=== PATIENT | female | born 1945 | race Caucasian/White ===

== ENCOUNTER 2023-04-16 07:44 | Emergency (ER) | payer MEDICARE, SELFPAY ==
[2023-04-16] VITALS (12 sets, daily range): BP systolic 81–101; BP diastolic 42–61; PULSE 58–72; RESP 12–22; TEMP 36.4; O2SAT 96–98; BMI 25.8
[2023-04-16] MEDS: ONDANSETRON PF 4 MG/2 ML VIAL IV (08:08)
[2023-04-16] MEDS: 0.9 % SODIUM CHLORIDE 1,000 ML 1000 ML IV ×2 (08:08→09:38)
--- NOTE | 2023-04-16 08:12 | ECG_ITS ---
[facility] Test Date: 2023-04-16 Pat Name: SHERRY SEXTON Department: Room: - Gender: Female [employer]: : 1945 Requested By: Order Number: [id number] Reading MD: RUBINA ORTEZ Measurements Intervals [place] Rate: 58 P: 51 W[place]: 168 QRS: 53 QRSD: 78 T: 246 QT: 472 QTc: 469 Interpretive Statements 1100 Sinus rhythm [address] depression 4664 Twave abnormality, possible inferolateral ischemia 9150 abnormal ECG No previous ECG available for comparison Electronically Signed On 04-18-2023 19:29:10 EST by RUBINA ORTEZ
--- NOTE | 2023-04-16 08:12 | XR_ITS ---
The [address] [address] Patient Name: SHERRY SEXTON MRN: [id number] date: 1945 Sex: F Assigned Patient Location: ER Current Patient Location: ER Accession/Order Number: [id number] Exam Date: 04/16/2023 08:40 Report Date: 04/16/2023 09:19 At the request of: STEVIE VIRGEN Procedure: XR acute abdomen series EXAM: XR acute abdomen series HISTORY: weakness, nausea COMPARISON: None. TECHNIQUE: Frontal view of the chest and supine and upright views of the abdomen FINDINGS: TUBES/LINES: None CHEST: [Adequate inflation. No focal opacity in the setting of likely prominent mediastinal fat pad. No pneumothorax. No pleural effusion. Unremarkable cardiomediastinal contours. ABDOMEN: No dilated loops of bowel. A couple transverse colonic air-fluid levels with gas and stool extending to the rectum. Moderate stool burden. No pneumoperitoneum. Cholecystectomy. BONES & SOFT TISSUE: Unremarkable. XR/XR acute abdomen series IMPRESSION: 1. Overall nonobstructive bowel gas pattern. 2. No acute pulmonary findings. Electronically authenticated by: ANNABEL IVERSON Date: 04/16/2023 09:19
--- NOTE | 2023-04-16 08:17 | ED_ITS ---
HPI - General Adult General Chief complaint: Weakness Stated complaint: GENERAL WEAKNESS Time Seen by Provider: 04/16/23 07:53 Source: patient Mode of arrival: walk-in History of Present Illness HPI narrative: 77yr old female new to this facility presents with non-focal weakness, nausea and acid reflux-type symptoms - discomfort from the upper abdomen through the chest into the throat with a terrible taste in my mouth - that started this morning. She was evaluated at [facility] in [place], [place], on 04/12/23 and found to have a UTI and was prescribed bactrim, which she has been taking twice daily. We received a copy of her records from [facility] and she had CT scan showing chronic bilateral UPL stenosis, which has been present on multiple prior studies, according to the chart, sigmoid diverticulosis without diverticulitis, previously seen granulomatous disease, normal liver and bladder, non-obstructive bowel gas pattern and nothing else to attribute to her abdominal pain. Her blood work was essentially unremarkable with normal WBC, Hb 10.5, left shift and normal electrolytes, renal function and LFTs. Related Data Home Medications Medication Instructions Recorded Confirmed alprazolam 0.5 mg tablet 0.5 mg PO BID PRN anxiety 04/16/23 04/16/23 pantoprazole 40 mg tablet,delayed 40 mg PO Q12H 04/16/23 04/16/23 release rosuvastatin 40 mg tablet 40 mg PO DAILY 04/16/23 04/16/23 sertraline 100 mg tablet 100 mg PO Q24H 04/16/23 04/16/23 sulfamethoxazole 400 2 tab PO Q12H 04/16/23 04/16/23 mg-trimethoprim 80 mg tablet venlafaxine 37.5 mg 37.5 mg PO DAILY 04/16/23 04/16/23 capsule,extended release 24 hr Previous Rx's Medication Instructions Recorded nitrofurantoin 100 mg PO BID 5 days #10 caps 04/16/23 monohydrate/macrocrystals 100 mg capsule (Macrobid) sucralfate 1 gram tablet (Carafate) 1 g PO Q6H 4 weeks #112 tabs 04/16/23 Allergies Allergy/AdvReac Type Severity Reaction Status Date / Time bee venom protein (honey bee) Allergy Swelling Verified 04/16/23 08:03 of Lip/Tongue/Throat moxifloxacin [From Avelox] Allergy Swelling Verified 04/16/23 08:03 of Lip/Tongue/Throat acetaminophen [From Percocet] AdvReac Headache Verified 04/16/23 08:02 albuterol AdvReac Headache Verified 04/16/23 08:02 calcium AdvReac Vomiting Verified 04/16/23 08:02 doxycycline AdvReac Verified 04/16/23 08:02 fluconazole [From Diflucan] AdvReac Headache Verified 04/16/23 08:02 hydrocodone [From Vicodin] AdvReac Vomiting Verified 04/16/23 08:03 Iodinated Contrast Media AdvReac burining Verified 04/16/23 08:02 skin oxycodone [From Percocet] AdvReac Headache Verified 04/16/23 08:02 Penicillins AdvReac Hives Verified 04/16/23 08:02 Exam Narrative Exam Narrative: Nurses notes and vital signs reviewed and patient is not hypoxic. afebrile General: Well-appearing and in no apparent distress. Skin: Warm, dry, no pallor noted. No rash. Head: Normocephalic, atraumatic. Neck: Supple, non-tender. no cervical lymphadenopathy Eye: Pupils are equal, round and EOMI. No scleral icterus. Ears, Nose, Mouth, and Throat: Oral mucosa is slightly dry Cardiovascular: Regular Rate and Rhythm without murmur, gallop or rub. Respiratory: No accessory muscle use or respiratory distress. Lungs are clear to auscultation, no wheezing, rales or rhonchi Back: No CVA tenderness Musculoskeletal: normal ROM, no calf or popliteal tenderness, no lower extremity edema/swelling GI: Abdomen is soft, non-distended. Normal bowel sounds. No masses appreciated. No tenderness to palpation. No rebound, guarding, or rigidity noted. Neurological: A&O x4. No cranial nerve dysfunction observed. No truncal ataxia. Moves all extremities. Sensation intact. Psychiatric: Cooperative and interactive. Normal mood and affect. Constitutional Vital Signs, click to edit/add: Last Vital Signs Temp 97.6 F 04/16/23 07:49 Pulse 68 04/16/23 09:27 Resp 22 04/16/23 09:27 BP 87/42 L 04/16/23 09:27 Pulse Ox 96 04/16/23 09:22 O2 Del Method Room Air 04/16/23 07:49 Course Vital Signs Vital signs: Vital Signs Temperature 97.6 F 04/16/23 07:49 Pulse Rate 72 04/16/23 07:49 Respiratory Rate 18 04/16/23 07:49 Blood Pressure 99/61 04/16/23 07:49 Pulse Oximetry 98 04/16/23 07:49 Oxygen Delivery Method Room Air 04/16/23 07:49 Temperature 97.6 F 04/16/23 07:49 Pulse Rate 68 04/16/23 09:27 Respiratory Rate 22 04/16/23 09:27 Blood Pressure 87/42 L 04/16/23 09:27 Pulse Oximetry 96 04/16/23 09:22 Oxygen Delivery Method Room Air 04/16/23 07:49 Medical Decision Making MDM Narrative Medical decision making narrative: Patient was placed on director of cardiac rehabilitation and EKG obtained. Blood drawn and sent for evaluation. chest x-ray obtained. Urine ordered to be sent for testing as well. Patient given normal saline IV fluid, IV Zofran while we awaited test results We received a copy of the patient's recent emergency department evaluation. My summarized details are noted in the HPI. Blood test results today are almost identical to those obtained at OSH. Urine still shows sign of acute UTI but improved from result at OSH - I do not have a blood culture result from OSH. Troponin negative despite EKG showing TWI. Abd series xrays are without worrisome acute pulmonary or intra-abdominal findings Orthostatics reveal a BP drop going from sitting to standing - so she was ordered to receive a second liter of NS IVF. She was also ordered to receive GI cocktail for her reflux symptoms. Patient informed of results and we discussed diagnoses and plan for treatment. She was discharged home with prescriptions for carafate and macrobid x5days. She was instructed to also complete her course of bactrim previously prescribed. Medical Records Medical records reviewed: Yes I reviewed the patient's medical records Medical records narrative: see the HPI Lab Data Lab results reviewed: Yes I reviewed the patient's lab results Labs: Lab Results 04/16/23 04/16/23 Range/Units 08:05 08:14 WBC 5.0 (4.0-11.0) 10^3/uL RBC 3.82 L (4.20-5.40) 10^6/uL Hgb 10.8 L (12.0-16.0) g/dL Hct 33.0 L (36.0-48.0) % MCV 86.4 (81.0-99.0) fL MCH 28.3 (26.7-34.0) pg MCHC 32.7 (29.9-35.2) g/dL RDW 14.2 (11.0-15.0) % Plt Count 184 (150-450) 10^3/uL MPV 9.7 (9.5-13.5) fL Neut % (Auto) 71.4 (43.0-75.0) % Lymph % (Auto) 19.4 L (20.5-60.0) % [place] % (Auto) 6.2 (1.7-12.0) % Eos % (Auto) 2.2 (0.9-7.0) % Baso % (Auto) 0.4 (0.2-2.0) % Neut # (Auto) 3.6 (1.4-6.5) 10^3/uL Lymph # (Auto) 1.0 L (1.2-3.8) 10^3/uL [place] # (Auto) 0.3 (0.3-0.8) 10^3/uL Eos # (Auto) 0.1 (0.0-0.7) 10^3/uL Baso # (Auto) 0.0 (0.0-0.1) 10^3/uL Abs Immat Gran (auto) 0.02 (0.00-0.03) 10^3/uL Imm/Tot Granulo (auto) 0.4 (0.0-0.5) % Sodium 137 (136-145) mmol/L Potassium 3.8 (3.5-5.1) mmol/L Chloride 100 (98-107) mmol/L Carbon Dioxide 23.6 (21.0-32.0) mmol/L Anion Gap 17.2 BUN 10.0 (7.0-18.0) mg/dL Creatinine 1.14 H (0.55-1.02) mg/dL Est GFR ( Amer) 56 L (>=60) Est GFR (Non-Af Amer) 46 L (>=60) BUN/Creatinine Ratio 8.8 Glucose 131 H (74-106) mg/dL Calcium 8.7 (8.5-10.1) mg/dL Total Bilirubin 0.5 (0.2-1.0) mg/dL AST 16 (15-37) U/L ALT 19 (14-59) U/L Alkaline Phosphatase 77 (46-116) U/L Troponin I High Sens 6.1 (4.0-51.3) pg/mL Total Protein 7.0 (6.4-8.2) g/dL Albumin 3.7 (3.4-5.0) g/dL Globulin 3.3 g/dL Albumin/Globulin Ratio 1.1 Lipase 37.0 (16.0-77.0) U/L Urine Color Lt. yellow (YELLOW) Urine Clarity Clear (CLEAR) Urine pH 7.0 (5.0-9.0) Ur Specific [place]later 1.020 (1.005-1.025) Urine Protein 30 A (NEG/TRACE) mg/dL Urine Glucose (UA) Negative (NEGATIVE) mg/dL Urine Ketones Negative (NEGATIVE) mg/dL Urine Occult Blood Negative (NEGATIVE) Urine Nitrite Negative (NEGATIVE) Urine Bilirubin Negative (NEGATIVE) Urine Urobilinogen 2.0 A (0.2-1.0) EU/dL Ur Leukocyte Esterase Trace A (NEGATIVE) Urine RBC 0-2 (0-2) #/HPF Urine WBC 0-2 A (NONE SEEN) #/HPF Ur Squamous Epith Cells Rare (NONE/RARE) #/LPF Urine Crystals Seen A (None Seen) #/HPF Amorphous Sediment Few Urine Bacteria Small A (NONE SEEN) #/HPF Urine Casts None seen (NONE SEEN) #/LPF Urine Mucus None seen (NONE SEEN) Ur Culture Indicated? Yes SARS-CoV-2 (PCR) Negative (NEGATIVE) Imaging Data xr abd & chest: Radiologist's impression: Patient Name: SHERRY SEXTON MRN: [id number] date: 1945 Sex: F Assigned Patient Location: ER Current Patient Location: ER Accession/Order Number: [id number] Exam Date: 04/16/2023 08:40 Report Date: 04/16/2023 09:19 At the request of: STEVIE VIRGEN Procedure: XR acute abdomen series EXAM: XR acute abdomen series HISTORY: weakness, nausea COMPARISON: None. TECHNIQUE: Frontal view of the chest and supine and upright views of the abdomen FINDINGS: TUBES/LINES: None CHEST: [Adequate inflation. No focal opacity in the setting of likely prominent mediastinal fat pad. No pneumothorax. No pleural effusion. Unremarkable cardiomediastinal contours. ABDOMEN: No dilated loops of bowel. A couple transverse colonic air-fluid levels with gas and stool extending to the rectum. Moderate stool burden. No pneumoperitoneum. Cholecystectomy. BONES & SOFT TISSUE: Unremarkable. IMPRESSION: 1. Overall nonobstructive bowel gas pattern. 2. No acute pulmonary findings. Electronically authenticated by: ANNABEL IVERSON Date: 04/16/2023 09:19 ECG Data Attestation: I personally reviewed and interpreted this ECG as follows: Interpretation: EKG interpretation: Emergency Department physician interpretation. Normal sinus rhythm at 58bpm. Normal axis, normal intervals. Twave inversion leads I, II, III, aVF, V3-V5. V6 t wave appears biphasic. no ST segment elevation. Mild ST depression in leads III, aVF & V4-V5. Discharge Plan Discharge Chief Complaint: Weakness Clinical Impression: Acute UTI, GERD (gastroesophageal reflux disease), Dehydration Patient Disposition: Home, Self-Care Time of Disposition Decision: 09:38 Prescriptions / Home Meds: New nitrofurantoin monohyd/m-cryst [Macrobid] 100 mg capsule 100 mg PO BID 5 Days Qty: 10 0RF Rx Instructions: must administer with a meal/food sucralfate [Carafate] 1 gram tablet 1 g PO Q6H 28 Days Qty: 112 0RF Rx Instructions: take before meals and at bedtime No Action alprazolam 0.5 mg tablet 0.5 mg PO BID PRN (Reason: anxiety) pantoprazole 40 mg tablet,delayed release (DR/EC) 40 mg PO Q12H rosuvastatin 40 mg tablet 40 mg PO DAILY sertraline 100 mg tablet 100 mg PO Q24H sulfamethoxazole-trimethoprim 400-80 mg tablet 2 tab PO Q12H venlafaxine 37.5 mg capsule,extended release 24hr 37.5 mg PO DAILY Stand Alone Forms: Portal Instructions Referrals: Physician,Non-Staff, MD [Primary Care Provider] - 1 week
[2023-04-16 08:28] LABS: Basophils Percent Auto 0.4 % (0.2-2.0); Eosinophils Absolute Auto 0.1 10^3/uL (0.0-0.7); Eosinophils Percent Auto 2.2 % (0.9-7.0); Hemoglobin 10.8 g/dL (12.0-16.0); Immature Granulocytes Abs Auto 0.02 10^3/uL (0.00-0.03); Immature Granulocytes Pct Auto 0.4 % (0.0-0.5); Lymphocytes Percent Auto 19.4 % (20.5-60.0); Mean Corpuscular HGB Conc 32.7 g/dL (29.9-35.2); Mean Corpuscular Hemoglobin 28.3 pg (26.7-34.0); Mean Corpuscular Volume 86.4 fL (81.0-99.0); Mean Platelet Volume 9.7 fL (9.5-13.5); Monocytes Absolute Auto 0.3 10^3/uL (0.3-0.8); Monocytes Percent Auto 6.2 % (1.7-12.0); Neutrophils Absolute Auto 3.6 10^3/uL (1.4-6.5); Neutrophils Percent Auto 71.4 % (43.0-75.0); Platelet Count 184 10^3/uL (150-450); Red Blood Count 3.82 10^6/uL (4.20-5.40); Red Cell Distribution Width 14.2 % (11.0-15.0)
[2023-04-16 08:32] LABS: Bilirubin Urine NEGATIVE (NEGATIVE); Blood Urine NEGATIVE (NEGATIVE); Clarity Urine CLEAR (CLEAR); Color Urine LT. YELLOW (YELLOW); Glucose Urine UA NEGATIVE (NEGATIVE); Ketones Urine NEGATIVE (NEGATIVE); Leukocyte Esterase Urine TRACE (NEGATIVE); Nitrite Urine NEGATIVE (NEGATIVE); Protein Urine 30 mg/dL (NEG/TRACE)
[2023-04-16 08:33] LABS: Urine Microscopic Indicated YES
[2023-04-16 08:41] LABS: Bacteria Urine SMALL #/HPF (NONE SEEN); Mucus Urine NONE SEEN (NONE SEEN); RBC Urine 0-2 #/HPF (0-2); Squamous Epithelial Cell Urine RARE #/LPF (NONE/RARE); WBC Urine 0-2 #/HPF (NONE SEEN)
[2023-04-16 08:43] LABS: Crystals Seen? Seen #/HPF (None Seen)
[2023-04-16 08:44] LABS: Amorphous Sediment Urine FEW; Cast Seen? NONE SEEN #/LPF (NONE SEEN); Urine Culture Indicated YES
[2023-04-16 08:45] LABS: SARS-CoV-2 Ag NEGATIVE (NEGATIVE)
[2023-04-16 08:48] LABS: Troponin I High Sensitivity 6.1 pg/mL (4.0-51.3)
[2023-04-16 08:53] LABS: Alanine Aminotransferase 19 U/L (14-59); Albumin Globulin Ratio 1.1; Albumin Level 3.7 g/dL (3.4-5.0); Alkaline Phosphatase 77 U/L (46-116); Anion Gap 17.2; Aspartate Amino Transferase 16 U/L (15-37); BUN Creatinine Ratio 8.8; Bilirubin Total 0.5 mg/dL (0.2-1.0); Calcium 8.7 mg/dL (8.5-10.1); Carbon Dioxide 23.6 mmol/L (21.0-32.0); Chloride 100 mmol/L (98-107); Estimated GFR (African America 56 (>=60); Estimated GFR (Non-African Ame 46 (>=60); Globulin 3.3 g/dL; Glucose 131 mg/dL (74-106); Potassium 3.8 mmol/L (3.5-5.1); Sodium 137 mmol/L (136-145)
[2023-04-16] MEDS: lidocaine HCL 15 ML, MAG HYDROX/ALUMINUM HYD/SIMETH 30 ML, HYOSCYAMINE SULFATE 0.25 MG PO (09:37)
[2023-04-16 15:16] LABS: SARS-CoV-2 NAA NOT DETECTED (NOT DETECTE)
== END 2023-04-16 10:15 | disposition home or self-care (01) ==
PROVIDERS: Emergency Provider Emergency Medicine
DX: N39.0 Urinary tract infection, site not specified (principal); E86.0 Dehydration; K21.9 Gastro-esophageal reflux disease without esophagitis; Z79.899 Other long term (current) drug therapy; Z20.822 Contact with and (suspected) exposure to COVID-19
CPT/HCPCS: 36415; 74022; 80053; 81001; 83690; 84484; 85025; 87086; 87635; 87811; 93005; 96361; 96374; 99285

== ENCOUNTER 2024-04-23 11:27 | Emergency (ER) | payer MEDICARE, SELFPAY ==
[2024-04-23] VITALS (23 sets, daily range): BP systolic 95–179; BP diastolic 54–105; PULSE 65–93; TEMP 36.3; O2SAT 93–99; BMI 27.4
--- OUTSIDE RECORDS SUMMARY | 2024-04-23 11:36 | XMS_ITS | CCD ---
Author Organization [facility] Care Team Providers Care Label Printer Name Role Phone Alvarenga DO Myrna K Primary Care Provider Alvarenga DO Myrna K Attending Provider CHIKIS Jenkins Attending Provider DO Leonidas Sanchez Attending Provider [phone] DO Andra Campbell S Attending Provider [phone] CHIKIS Wan Attending Provider Brunner, DO Nathanael T Primary Care Provider Alvarenga, DO Myrna K Primary Care Provider Alvarenga, DO Myrna K Attending Provider Burnner, DO Nathanael T Attending Provider Alvarenga, DO Myrna K Primary Care Provider CHIKIS Wan Attending Provider Brunner, DO Nathanael T Primary Care Provider Brunner, DO Nathanael T Attending Provider Brunner, DO Nathanael T Primary Care Provider Brunner, DO Nathanael T Primary Care Provider Brunner, DO Nathanael T Attending Provider CHIKIS Mcgee Attending Provider AdrianDO Yaneth barrettammed S Attending Provider CATHY Kitchen Attending Provider Brunner, DO Nathanael T Primary Care Provider Brunner, DO Nathanael T Attending Provider CHIKIS Wan Attending Provider MD Kristine Benedict Attending Provider Brunner, DO Nathanael T Primary Care Provider CHIKIS Mcgee Attending Provider AdrianDO Anrda S Attending Provider Brunner, DO Nathanael T Attending Provider CATHY Kitchen Attending Provider CHIKIS Wan Attending Provider MD Kristine Benedict Attending Provider MD Ricky Singh Emergency Provider Unavail able Brunner, DO Nathanael T Primary Care Provider EMILY Peterson Other Provider Unavailable MD Lion Hurtado Attending Provider Brunner, DO Nathanael T Primary Care Provider Brunner, DO Nathanael T Attending Provider CATHY Kitchen Attending Provider Brunner, DO Nathanael T Primary Care Provider Brunner, DO Nathanael T Attending Provider Care Provider, Urgent Attending Provider Unavail MD Kristine Acevedo Attending Provider Brunner, DO Nathanael T Primary Care Provider Brunner, DO Nathanael T Attending Provider MD Kristine Benedict Attending Provider Brunner, DO Nathanael T Primary Care Provider Brunner, DO Nathanael T Attending Provider AdrianDO Andra S Attending Provider Brunner, DO Nathanael T Primary Care Provider CATHY Kitchen Attending Provider Adrian, Andra S Attending Provider Barga, DO Nicole A Primary Care Provider Barga, DO Nicole A Attending Provider CHIKIS Wan Attending Provider Barga, DO Nicole A Primary Care Provider Brunner, DO Nathanael T Primary Care Provider Brunner, DO Nathanael T Primary Care Provider Brunner, DO Nathanael T Attending Provider Barga, DO Nicole A Attending Provider MD Ricky Singh Emergency Provider Unavail able Barga, DO Nicole A Primary Care Provider Barga, DO Nicole A Attending Provider CHIKIS Wan Attending Provider CHIKIS Lopez Attending Provider Taty Noble CNP Unavailable Ildefonsoga, DO Nicole A Primary Care Provider Barvidhya, DO Nicole A Attending Provider CHIKIS Wan Attending Provider CHIKIS Lopez Attending Provider AWAN, MIHIR S Referring Unavailable AWAN, MIHIR S Referring Unavailable AWAN, MIHIR S Referring Unavailable ANNABEL BANKS Attending Unavailable TATY NOBLE Referring Unavailable AWAN, MIHIR S Attending Unavailable TATY NOBLE Referring Unavailable Toya, VALERIO Aragon Attending Provider Barga, DO Nicole A Primary Care Provider [phone] CHIKIS Wan Attending Provider Barga, DO Nicole A Attending Provider [phone] Barga, DO Nicole A Primary Care Provider Barga DO, Nicole A Primary Care Provider Barga DO, Nicole A Attending Provider [phone] Meena Dallas DO Emergency Provider Unavail able Barga DO, Nicole A Primary Care Provider Barga DO, Nicole A Attending Provider [phone] Barga DO, Nicole A Primary Care Provider Barga DO, Nicole A Attending Provider [phone] Joy Olivares Attending Provider Hugh Julian MD Emergency Provider Unavailable Barga, Nicole A Primary Care Unavailable Ricky Singh Attending Unavailable Barga, Nicole A Attending Unavailable Barga, Nicole A Primary Care Unavailable Joy Wan Attending Unavailable Barga, Nicole A Primary Care Unavailable Tisha Lopez Attending Unavailable Barga, Nicole A Primary Care Unavailable Tisha Lopez Attending Unavailable Barga, Nicole A Primary Care Unavailable Barga, Nicole A Attending Unavailable Barga, Nicole A Primary Care Unavailable Meera Pittman Attending Unavailable Barga, Nicole A Primary Care Unavailable Barga, Nicole A Attending Unavailable Barga, Nicole A Primary Care Unavailable Barga, Nicole A Primary Care Unavailable Meena Dallas Attending Unavailable Barga, Nicole A Attending Unavailable Barga, Nicole A Primary Care Unavailable Barga, Nicole A Primary Care Unavailable Hugh Julian Attending Unavailable Barga DO, Nicole A Primary Care Provider [phone] Meena Dallas DO Emergency Provider Unavail able Barga DO, Nicole A Attending Provider Joy Olivares Attending Provider [phone] Hugh Julian MD Emergency Provider Unavailable Allergies Allergy Classification Reported Allergen(s) Allergy Type Date of Onset Reaction(s) Facility Albuterol (1 source) Albuterol Drug Allergy 11-17-19 HEADACHE,NAUSE A [facility] Azole Antifungals (1 source) Fluconazole Drug Allergy 11-17-19 Headache [facility] Calcium (1 source) Calcium Drug Allergy 11-17-19 GI upset [facility] Cephalosporins (antibiotic) (1 source) Cephalexin Drug Allergy 12-03-19 Vomiting [facility] Doxycycline (1 source) Doxycycline Drug Allergy 11-17-19 TEARS UP STOMACH- CAUSES ALOT OF PAIN [facility] Nitrofurantoin (1 source) Nitrofurantoin Drug Allergy 11-17-19 Vomiting [facility] Opioid Agonists (2 sources) oxyCODONE Drug Allergy 11-17-19 Headache, vomiting, headache [facility] Penicillins (antibiotic) (1 source) Penicillins Drug Allergy 11-17-19 24 Rash [facility] Quinolones (antibiotic) (2 sources) Quinolones (Antibiotic) Drug Allergy 11-17-19 Rash, Unknown [facility] (20 sources) Albuterol; Translations: [ALBUTEROL] Drug Allergy 12-04-19 Intolerance [facility] (20 sources) Calcium; Translations: [CALCIUM] Drug Allergy 12-04-19 Intolerance [facility] Comment on above: GI upset (20 sources) Doxycycline; Translations: [DOXYCYCLINE] Drug Allergy 12-04-19 [facility] (20 sources) Fluconazole; Translations: [FLUCONAZOLE] Drug Allergy 12-04-19 [facility] (20 sources) HYDROcodone; Translations: [HYDROCODONE] Drug Allergy 12-04-19 GI Upset [facility] (20 sources) moxifloxacin; Translations: [MOXIFLOXACIN] Drug Allergy 12-04-19 Intolerance [facility] (20 sources) oxyCODONE Drug Allergy 12-04-19 Headache [facility] (20 sources) Penicillins; Translations: [Penicillins] Allergy to substance 12-04-19 Rash [facility] (20 sources) Quinolones (Antibiotic); Translations: [QUINOLONES] Allergy to substance 12-04-19 Unknown [facility] (7 sources) Iodinated Contrast Media Allergy to substance 12-04-19 headache, burning skin [facility] (20 sources) bee venom protein (honey bee); Translations: [BEE VENOM PROTEIN (HONEY BEE)] Propensity to adverse reactions 12-04-19 22 Anaphylaxis [facility] (20 sources) Triiodobenzoic Acids Allergy to substance 01-09-20 headache, burning skin [facility] (20 sources) Nitrofurantoin Drug Allergy 12-16-19 23 Vomiting [facility] Comment on above: and headache (8 sources) Iodine; Translations: [IODINE] Drug Allergy 08-16-19 [facility] (8 sources) NITROFURANTOIN, MACROCRYSTALS / Nitrofurantoin, Monohydrate; Translations: [NITROFURANTOIN MONOHYD/M-CRYST] Drug Allergy 08-16-19 [facility] (8 sources) Penicillin; Translations: [PENICILLIN] Drug Allergy 08-16-19 [facility] (6 sources) Cephalexin Drug Allergy 12-03-19 Vomiting [facility] (1 source) Albuterol Drug Allergy 02-28-20 [facility] (1 source) Calcium Drug Allergy 02-28-20 [facility] (1 source) Cephalexin Drug Allergy 02-28-20 [facility] (1 source) Doxycycline Drug Allergy 02-28-20 [facility] (1 source) Fluconazole Drug Allergy 02-28-20 [facility] (1 source) HYDROcodone Drug Allergy 02-28-20 [facility] (1 source) moxifloxacin Drug Allergy 02-28-20 [facility] (1 source) Nitrofurantoin Drug Allergy 02-28-20 24 [facility] (1 source) oxyCODONE Drug Allergy 02-28-20 [facility] (1 source) Iodinated Contrast Media Drug allergy (disorder) 02-28-20 24 [facility] (1 source) bee venom protein (honey bee) Drug allergy (disorder) 02-28-20 [facility] Medications Current Medications Medication Drug Class(es) Dates Sig (Normalized) Sig (Original) ALPRAZolam 0.25 mg oral tablet (20 sources) Benzodiazepine Start: 03-03-2024 Alprazolam Active MG PO March 03, 2024 12:00am Start: 04-19-2023 End: 03-30-2024 take 1 tablet by mouth twice daily as needed for anxiety Alprazolam 0.25 mg tablet Active 0.25 MG PO twice a day as needed for anxiety 60 March 30, 2024 7:28am Start: 01-21-2023 End: 04-19-2023 take 1 tablet by mouth twice daily as needed for anxiety Alprazolam 0.5 mg tablet Discontinued 0.5 MG PO twice a day as needed for anxiety 60 March 24, 2023 11:20am April 19, 2023 10:54am Start: 12-26-2020 End: 01-21-2023 take 1 tablet by mouth twice daily as needed for anxiety Alprazolam 0.25 mg tablet Discontinued 0.25 MG PO twice a day as needed for anxiety 60 May 28, 2022 5:24pm August 13, 2022 2:10pm Comment on above: ALPRAZolam busPIRone hydrochloride 10 mg oral tablet (20 sources) Start: 04-08-2022 take 10 mg by mouth once daily Buspirone Active 10 MG PO Daily April 08, 2022 3:25pm Start: 04-08-2022 End: 04-08-2022 take 1 tablet by mouth twice daily Buspirone 10 mg tablet Discontinued 10 MG PO twice a day April 08, 2022 12:00am April 08, 2022 2:27pm Start: 09-03-2021 End: 11-05-2021 take 1 tablet by mouth twice daily Buspirone 10 mg tablet Discontinued 10 MG PO twice a day September 25, 2021 1:11pm November 05, 2021 2:09pm cephalexin 500 mg oral capsule (20 sources) Cephalosporin Antibacterial Start: 03-03-2024 take 500 mg by mouth three times daily Cephalexin Active 500 MG PO Three times daily 15 March 03, 2024 12:00am Start: 10-16-2023 End: 11-17-2023 take 1 capsule by mouth every six hours Cephalexin 500 mg capsule Discontinued 500 MG PO Q6H 40 10 October 15, 2023 11:00pm November 17, 2023 1:48pm Start: 08-24-2022 End: 08-26-2022 take 1 capsule by mouth twice daily Cephalexin 500 mg capsule Discontinued 500 MG PO twice a day 14 7 August 23, 2022 11:00pm August 26, 2022 1:01pm Start: 06-30-2022 End: 07-02-2022 take 1 capsule by mouth every eight hours Cephalexin 500 mg capsule Discontinued 500 MG PO Q8H June 30, 2022 12:00am July 02, 2022 11:59am Start: 08-05-2021 End: 09-03-2021 take 1 capsule by mouth every eight hours Cephalexin 500 mg capsule Discontinued 500 MG PO Q8H August 05, 2021 12:00am September 03, 2021 1:13pm Cholecalciferol (20 sources) Vitamin D Start: 12-26-2020 take 1 capsule by mouth once daily Cholecalciferol (Vitamin D3) 50 mcg (2,000 unit) capsule Active 50 MCG PO Daily December 25, 2020 11:00pm Start: 12-26-2020 take 1 capsule by mo [facility] once daily Cholecalciferol (Vitamin D3) 50 mcg (2,000 unit) capsule Active 50 MCG PO Daily December 26, 2020 12:00am Start: 12-26-2020 take 50 ug by mouth once daily Cholecalciferol (Vitamin D3) Active 50 MCG PO Daily December 25, 2020 11:00pm Start: 12-26-2020 take 50 ug by mouth once daily Cholecalciferol (Vitamin D3) Active 50 MCG PO Daily December 26, 2020 12:00am take 1 tablet by linden once daily cholecalciferol (VITAMIN D-3) 50 mcg (2,000 unit) tablet Take 2,000 Units by mouth once daily. 0 Active Comment on above: Take 2,000 Units by mouth once daily. Denosumab (Prolia) 60 mg/mL syringe (11 sources) Start: 08-26-2023 Denosumab (Prolia) 60 mg/mL syringe Active 60 MG SUBCUT every 6 months August 25, 2023 11:00pm Start: 08-26-2023 Denosumab (Pro go) 60 mg/mL syringe Active 60 MG SUBCUT every 6 months August 26, 2023 12:00am Diclofenac (11 sources) Nonsteroidal Anti-inflammatory Drug Start: 04-08-2022 Diclofenac Sodium (Voltaren Arthritis Pain) 1 % gel Active 4 GM TOP four times daily April 08, 2022 1:00am apply to left ankle Start: 04-08-2022 Diclofenac Sod ium (Voltaren Arthritis Pain) 1 % gel Active 4 GM TOP four times daily 100 April 08, 2022 12:00am apply to left ankle fluticasone (20 sources) Corticosteroid Start: 08-13-2023 take 1 spray(s) nasal route once daily Fluticasone Propionate Active 1 SPRAY NOSTRIL-B Daily August 13, 2023 3:04pm Start: 02-04-2022 End: 08-13-2023 take 1 spray(s) nasal route once daily Fluticasone Propionate Discontinued 1 SPRAY NOSTRIL-B Daily February 04, 2022 2:43pm August 13, 2023 3:05pm Start: 02-04-2022 take 1 spray(s) nasa l route once daily Fluticasone Propionate Active 1 SPRAY NOSTRIL-B Daily February 04, 2022 1:43pm Start: 02-04-2022 take 1 spray(s) nasa l route once daily Fluticasone Propionate Active 1 SPRAY NOSTRIL-B Daily February 04, 2022 2:43pm Start: 08-27-2021 End: 02-04-2022 take 1 spray(s) nasal route once daily Fluticasone Propionate Discontinued 1 SPRAY NOSTRIL-B Daily August 27, 2021 10:52am February 04, 2022 1:44pm Start: 08-27-2021 End: 02-04-2022 take 1 spray(s) nasal route once daily Fluticasone Propionate Discontinued 1 SPRAY NOSTRIL-B Daily August 27, 2021 11:52am February 04, 2022 2:44pm Start: 08-27-2021 take 1 spray(s) nasa l route once daily Fluticasone Propionate Active 1 SPRAY NOSTRIL-B Daily August 27, 2021 11:52am Start: 08-25-2021 End: 08-27-2021 take 1 spray(s) nasal route once daily Fluticasone Propionate Discontinued 1 SPRAY NOSTRIL-B Daily August 25, 2021 7:19am August 27, 2021 10:52am Start: 08-25-2021 End: 08-27-2021 take 1 spray(s) nasal route once daily Fluticasone Propionate Discontinued 1 SPRAY NOSTRIL-B Daily August 25, 2021 8:19am August 27, 2021 11:52am Start: 12-26-2020 End: 08-25-2021 take 50 ug nasal route once daily Fluticasone Propionate Discontinued 50 MCG NOSTRIL-B Daily December 25, 2020 11:00pm August 25, 2021 7:19am Start: 12-26-2020 End: 08-25-2021 take 50 ug nasal route once daily Fluticasone Propionate Discontinued 50 MCG NOSTRIL-B Daily December 26, 2020 12:00am August 25, 2021 8:19am FLUTICASONE PROP IONATE NASAL Fluticasone Propionate 0 Active Comment on above: Fluticasone Propiona te Fluticasone Propionate 50 mcg/actuation spray,suspension (20 sources) Start: take 1 spray(s) nasal route once daily Fluticasone Propionate 50 mcg/actuation spray,suspension Active 1 SPRAY NOSTRIL-B Daily August 13, 2023 2:04pm Start: 08-13-2023 take 1 spray(s) nasa l route once daily Fluticasone Propionate 50 mcg/actuation spray,suspension Active 1 SPRAY NOSTRIL-B Daily August 13, 2023 3:04pm Start: 02-04-2022 End: 08-13-2023 take 1 spray(s) nasal route once daily Fluticasone Propionate 50 mcg/actuation spray,suspension Discontinued 1 SPRAY NOSTRIL-B Daily February 04, 2022 1:43pm August 13, 2023 2:05pm Start: 02-04-2022 End: 08-13-2023 take 1 spray(s) nasal route once daily Fluticasone Propionate 50 mcg/actuation spray,suspension Discontinued 1 SPRAY NOSTRIL-B Daily February 04, 2022 2:43pm August 13, 2023 3:05pm Start: 08-27-2021 End: 02-04-2022 take 1 spray(s) nasal route once daily Fluticasone Propionate 50 mcg/actuation spray,suspension Discontinued 1 SPRAY NOSTRIL-B Daily August 27, 2021 10:52am February 04, 2022 1:44pm Start: 08-27-2021 End: 02-04-2022 take 1 spray(s) nasal route once daily Fluticasone Propionate 50 mcg/actuation spray,suspension Discontinued 1 SPRAY NOSTRIL-B Daily August 27, 2021 11:52am February 04, 2022 2:44pm Start: 08-25-2021 End: 08-27-2021 take 1 spray(s) nasal route once daily Fluticasone Propionate 50 mcg/actuation spray,suspension Discontinued 1 SPRAY NOSTRIL-B Daily August 25, 2021 7:19am August 27, 2021 10:52am Start: 08-25-2021 End: 08-27-2021 take 1 spray(s) nasal route once daily Fluticasone Propionate 50 mcg/actuation spray,suspension Discontinued 1 SPRAY NOSTRIL-B Daily August 25, 2021 8:19am August 27, 2021 11:52am Start: 12-26-2020 End: 08-25-2021 take 50 ug nasal route once daily Fluticasone Propionate 50 mcg/actuation spray,suspension Discontinued 50 MCG NOSTRIL-B Daily December 25, 2020 11:00pm August 25, 2021 7:19am Start: 12-26-2020 End: 08-25-2021 take 50 ug nasal route once daily Fluticasone Propionate 50 mcg/actuation spray,suspension Discontinued 50 MCG NOSTRIL-B Daily December 26, 2020 12:00am August 25, 2021 8:19am Lactobac 40-Bifido 3-S.Therm op (Probiotic) 100 billion cell Capsule (16 sources) Start: 03-12-2021 Lactobac 40-Bi fido 3-S.Thermop (Probiotic) 100 billion cell Capsule Active 1 CAP PO Daily March 11, 2021 11:00pm Start: 03-12-2021 Lactobac 40-Bi fido 3-S.Thermop (Probiotic) 100 billion cell Capsule Active 1 CAP PO Daily March 12, 2021 12:00am loratadine 10 mg oral tablet (20 sources) Start: 08-24-2022 take 1 tablet by mouth once daily Loratadine 10 mg Tablet Active 10 MG PO Daily August 23, 2022 11:00pm Start: 12-26-2020 End: 01-02-2021 take 1 capsule by mouth once daily Loratadine 10 mg capsule Discontinued 10 MG PO Daily December 25, 2020 11:00pm January 02, 2021 10:06am take 1 capsule by mo uth once daily loratadine 10 mg cap Take 10 mg by mouth once daily. 0 Active Comment on above: Take 10 mg by mouth once daily. melatonin 3 mg oral tablet (3 sources) Start: 3 take 3 mg by mouth at bedtime Melatonin Active 3 MG PO bedtime February 12, 2023 12:00am Miconazole (1 source) Azole Antifungal Start: 4 Miconazole Nitrate 2 % cream Active 1 ESTHER TOP bedtime 30 7 March 29, 2024 11:00pm Multivitamin tablet (9 sources) Start: 4 take 1 tablet by mouth once daily Multivitamin tablet Active 1 TAB PO Daily February 16, 2024 11:00pm Start: 02-17-2024 take 1 tablet by linden once daily Multivitamin tablet Active 1 TAB PO Daily February 17, 2024 12:00am Start: 12-26-2020 End: 08-28-2022 take 1 tablet by mouth once daily Multivitamin tablet Discontinued 1 TAB PO Daily December 25, 2020 11:00pm August 28, 2022 1:58pm Start: 12-26-2020 End: 08-28-2022 take 1 tablet by mouth once daily Multivitamin tablet Discontinued 1 TAB PO Daily December 26, 2020 12:00am August 28, 2022 2:58pm Nitrofurantoin Monohyd/M-Cryst (4 sources) Start: 07-05-2022 take 100 mg by mouth every twelve hours at mealtime Nitrofurantoin Monohyd/M-Cryst Active 100 MG PO Q12H 10 5 July 05, 2022 1:00am must administer with a meal/food Start: 07-05-2022 take 100 mg by mouth every twelve hours at mealtime Nitrofurantoin Monohyd/M-Cryst Active 100 MG PO Q12H 03 04July 05, 2022 12:00am must administer with a meal/food nystatin 100 unt/mg topical powder (20 sources) Polyene Antifungal Start: 03-03-2024 Nystatin (N ystop) 100,000 unit/gram powder Active TOPICAL March 03, 2024 12:00am Start: 12-03-2023 Nystatin Activ e 1 ESTHER TOP twice a day December 03, 2023 3:40pm Start: 11-17-2023 End: 12-03-2023 Nystatin Discontinued 1 ESTHER TOP twice a day November 17, 2023 3:18pm December 03, 2023 3:40pm Start: 11-17-2023 Nystatin Activ e 1 ESTHER TOP twice a day November 17, 2023 3:18pm Start: 10-14-2023 End: 11-17-2023 Nystatin Discontinued 1 ESTHER TOP twice a day October 14, 2023 12:00am November 17, 2023 3:20pm Start: 10-14-2023 Nystatin Activ e 1 ESTHER TOP twice a day October 14, 2023 12:00am Start: 01-02-2021 End: 01-12-2021 Nystatin Discontinued 1 ESTHER TOP three times a day 30 January 01, 2021 11:00pm January 11, 2021 11:00pm Start: 01-02-2021 End: 01-12-2021 Nystatin Discontinued 1 ESTHER TOP three times a day 30 January 02, 2021 12:00am January 12, 2021 12:00am Nystatin (Nystop) 100,000 unit/gram powder (3 sources) Start: 03-30-2024 Nystatin (Nyst op) 100,000 unit/gram powder Active 1 ESTHER TOP twice a day as needed March 30, 2024 6:57am Start: 03-27-2024 End: 03-30-2024 Nystatin (Nystop) 100,000 un it/gram powder Discontinued 1 ESTHER TOP twice a day March 26, 2024 11:00pm March 30, 2024 6:58am Start: 03-27-2024 Nystatin (Nyst op) 100,000 unit/gram powder Active 1 ESTHER TOP twice a day March 27, 2024 12:00am olopatadine 7 mg/ml ophthalmic solution (5 sources) Histamine-1 Receptor Inhibitor Start: 01-21-2023 Olopatadine (Pataday Once Daily Relief) 0.7 % drops Active 1 DROP OP Daily 10 27January 21, 2023 12:00am Ondansetron 4 mg tablet,disintegrat ing (2 sources) Start: 03-27-2024 take 1 tablet by mouth every six hours as needed for nausea and vomiting Ondansetron 4 mg tablet,disintegra ting Active 4 MG PO Q6H as needed for nausea and vomiting March 26, 2024 11:00pm Start: 03-27-2024 take 1 tablet by linden th every six hours as needed for nausea and vomiting Ondansetron 4 mg tablet,disintegrating Active 4 MG PO Q6H as needed for nausea and vomiting March 27, 2024 12:00am pantoprazole 40 mg extended release oral tablet (20 sources) Proton Pump Inhibitor Start: 04-12-2023 take 40 mg by mouth twice daily Pantoprazole Active 40 MG PO twice a day April 12, 2023 11:14am Start: 12-21-2022 End: 12-21-2022 take 40 mg by mouth twice daily Pantoprazole Discontin ued 40 MG PO twice a day December 21, 2022 2:04pm December 21, 2022 2:50pm Start: 06-17-2022 End: 04-12-2023 take 40 mg by mouth once daily Pantoprazole Discontinu ed 40 MG PO Daily December 21, 2022 2:49pm April 12, 2023 11:15am Start: 12-26-2020 End: 06-18-2022 take 40 mg by mouth twice daily Pantoprazole Discontin ued 40 MG PO twice a day June 01, 2021 3:26pm June 17, 2022 12:31pm take 1 tablet by linden th twice daily pantoprazole DR (PROTONIX) 40 mg tablet Take 40 mg by mouth two times a day. 0 Active Comment on above: Take 40 mg by mouth two times a day. Pantoprazole 40 mg tablet,delayed release (DR/EC) (20 sources) Start: 12-22-2023 take 1 tablet by mouth twice daily Pantoprazole 40 mg tablet,delayed release (DR/EC) Active 40 MG PO twice a day 180 December 22, 2023 3:35pm Start: 12-22-2023 take 1 tablet by linden th twice daily Pantoprazole 40 mg tablet,delayed release (DR/EC) Active 40 MG PO twice a day 180 December 22, 2023 4:35pm Start: 04-12-2023 End: 12-22-2023 take 1 tablet by mouth twice daily Pantoprazole 40 mg tablet,delayed release (DR/EC) Discontinued 40 MG PO twice a day April 12, 2023 10:14am December 22, 2023 3:36pm Start: 04-12-2023 End: 12-22-2023 take 1 tablet by mouth twice daily Pantoprazole 40 mg tablet,delayed release (DR/EC) Discontinued 40 MG PO twice a day April 12, 2023 11:14am December 22, 2023 4:36pm Start: 12-21-2022 End: 04-12-2023 take 1 tablet by mouth once daily Pantoprazole 40 mg tablet,delayed release (DR/EC) Discontinued 40 MG PO Daily December 21, 2022 1:49pm April 12, 2023 10:15am Start: 12-21-2022 End: 04-12-2023 take 1 tablet by mouth once daily Pantoprazole 40 mg tablet,delayed release (DR/EC) Discontinued 40 MG PO Daily December 21, 2022 2:49pm April 12, 2023 11:15am Start: 12-21-2022 End: 12-21-2022 take 1 tablet by mouth twice daily Pantoprazole 40 mg tablet,delayed release (DR/EC) Discontinued 40 MG PO twice a day December 21, 2022 1:04pm December 21, 2022 1:50pm Start: 12-21-2022 End: 12-21-2022 take 1 tablet by mouth twice daily Pantoprazole 40 mg tablet,delayed release (DR/EC) Discontinued 40 MG PO twice a day December 21, 2022 2:04pm December 21, 2022 2:50pm Start: 06-18-2022 End: 12-21-2022 take 1 tablet by mouth once daily Pantoprazole 40 mg tablet,delayed release (DR/EC) Discontinued 40 MG PO Daily June 18, 2022 12:22am December 21, 2022 1:04pm Start: 06-18-2022 End: 12-21-2022 take 1 tablet by mouth once daily Pantoprazole 40 mg tablet,delayed release (DR/EC) Discontinued 40 MG PO Daily 90 June 18, 2022 1:22am December 21, 2022 2:04pm Start: 06-17-2022 End: 06-18-2022 take 1 tablet by mouth twice daily Pantoprazole 40 mg tablet,delayed release (DR/EC) Discontinued 40 MG PO twice a day 180 June 17, 2022 2:26pm June 18, 2022 12:22am Start: 06-17-2022 End: 06-18-2022 take 1 tablet by mouth twice daily Pantoprazole 40 mg tablet,delayed release (DR/EC) Discontinued 40 MG PO twice a day 180 June 17, 2022 3:26pm June 18, 2022 1:22am Start: 06-17-2022 End: 06-17-2022 take 1 tablet by mouth once Pantoprazole 40 mg tablet, delayed release (DR/EC) Discontinued 40 MG PO once 180 June 17, 2022 11:30am June 17, 2022 2:27pm Start: 06-17-2022 End: 06-17-2022 take 1 tablet by mouth once Pantoprazole 40 mg tablet, delayed release (DR/EC) Discontinued 40 MG PO once 180 June 17, 2022 12:30pm June 17, 2022 3:27pm Start: 06-01-2021 End: 06-17-2022 take 1 tablet by mouth twice daily Pantoprazole 40 mg tablet,delayed release (DR/EC) Discontinued 40 MG PO twice a day 180 June 01, 2021 2:26pm June 17, 2022 11:31am Start: 06-01-2021 End: 06-17-2022 take 1 tablet by mouth twice daily Pantoprazole 40 mg tablet,delayed release (DR/EC) Discontinued 40 MG PO twice a day 180 June 01, 2021 3:26pm June 17, 2022 12:31pm Start: 12-26-2020 End: 06-01-2021 take 1 tablet by mouth twice daily Pantoprazole 40 mg tablet,delayed release (DR/EC) Discontinued 40 MG PO twice a day December 25, 2020 11:00pm June 01, 2021 2:26pm Start: 12-26-2020 End: 06-01-2021 take 1 tablet by mouth twice daily Pantoprazole 40 mg tablet,delayed release (DR/EC) Discontinued 40 MG PO twice a day December 26, 2020 12:00am June 01, 2021 3:26pm Polyethylene Glycol 3350 (Miralax) 17 gram powder in packet (8 sources) Start: 11-17-2023 Polyethylene G lycol 3350 (Miralax) 17 gram powder in packet Active 17 GM PO Daily as needed for constipation November 16, 2023 11:00pm Start: 11-17-2023 Polyethylene G lycol 3350 (Miralax) 17 gram powder in packet Active 17 GM PO Daily as needed for constipation November 17, 2023 12:00am Start: 11-17-2023 Polyethylene G lycol 3350 (Miralax) 17 gram powder in packet Active 17 GM PO Daily as needed November 17, 2023 12:00am Start: 11-17-2023 Polyethylene G lycol 3350 (Miralax) 17 gram powder in packet Active 17 GM PO Daily November 17, 2023 12:00am rosuvastatin (20 sources) HMG-CoA Reductase Inhibitor Start: 03-03-2024 Rosuvastatin Active MG PO March 03, 2024 12:00am Start: 12-26-2020 End: 01-02-2021 take 1 tablet by mouth at bedtime Rosuvastatin 20 mg tablet Discontinued 20 MG PO bedtime December 25, 2020 11:00pm January 02, 2021 10:07am Start: 12-26-2020 End: 11-10-2023 take 1 tablet by mouth once daily Rosuvastatin 40 mg tablet Discontinued 40 MG PO Daily 90 November 03, 2022 6:27am November 10, 2023 1:08pm take 1 tablet by linden th once daily rosuvastatin (CRESTOR) 40 mg tablet Take 40 mg by mouth once daily. 0 Active Comment on above: Take 40 mg by mouth once daily. Saccharomyces boulardii (1 source) Start: 03-30-2024 Saccharomyces boulardii (Daily Probiotic (S. boulardii)) Active PO Daily March 29, 2024 11:00pm sulfamethoxazole 800 mg / trimethoprim 160 mg oral tablet (20 sources) Dihydrofolate Reductase Inhibitor Antibacterial, Sulfonamide Antimicrobial Start: 03-03-2024 Sulfamethoxazole-Trimet hoprim Active TAB PO March 03, 2024 12:00am Start: 02-21-2024 End: 03-27-2024 take 1 tablet by mouth twice daily Sulfamethoxazole-Trimethoprim (Bactrim D s) 800-160 mg tablet Discontinued 1 TAB PO twice a day 6 3 February 20, 2024 11:00pm March 27, 2024 7:49am Start: 02-21-2024 End: 03-27-2024 take 1 tablet by mouth twice daily Sulfamethoxazole-Trimethoprim (Bactrim D s) 800-160 mg tablet Discontinued 1 TAB PO twice a day 6 3 February 21, 2024 12:00am March 27, 2024 8:49am Start: 02-21-2024 take 1 tablet by linden th twice daily Sulfamethoxazole-Trimethoprim (Bactrim D s) 800-160 mg tablet Active 1 TAB PO twice a day 6 3 February 21, 2024 12:00am Start: 01-16-2024 End: 01-24-2024 take 1 tablet by mouth twice daily Sulfamethoxazole-Trimethoprim (Bactrim D s) 800-160 mg tablet Discontinued 1 TAB PO twice a day 7 January 15, 2024 11:00pm January 24, 2024 1:28pm Start: 01-16-2024 End: 01-24-2024 take 1 tablet by mouth twice daily Sulfamethoxazole-Trimethoprim (Bactrim D s) 800-160 mg tablet Discontinued 1 TAB PO twice a day 7 January 16, 2024 12:00am January 24, 2024 2:28pm Start: 01-16-2024 take 1 tablet by linden th twice daily Sulfamethoxazole-Trimethoprim (Bactrim D s) 800-160 mg tablet Active 1 TAB PO twice a day January 16, 2024 12:00am Start: 12-03-2023 End: 01-24-2024 take 1 tablet by mouth twice daily Sulfamethoxazole-Trimethoprim (Bactrim D s) 800-160 mg tablet Discontinued 1 TAB PO twice a day 6 December 02, 2023 11:00pm January 24, 2024 1:28pm Start: 12-03-2023 End: 01-24-2024 take 1 tablet by mouth twice daily Sulfamethoxazole-Trimethoprim (Bactrim D s) 800-160 mg tablet Discontinued 1 TAB PO twice a day 6 December 03, 2023 12:00am January 24, 2024 2:28pm Start: 12-03-2023 take 1 tablet by linden th twice daily Sulfamethoxazole-Trimethoprim (Bactrim D s) 800-160 mg tablet Active 1 TAB PO twice a day 6 December 03, 2023 12:00am Start: 08-13-2023 End: 11-17-2023 take 1 tablet by mouth twice daily Sulfamethoxazole-Trimethoprim (Bactrim D s) 800-160 mg tablet Discontinued 1 TAB PO twice a day 6 August 12, 2023 11:00pm November 17, 2023 1:51pm Start: 08-13-2023 End: 11-17-2023 take 1 tablet by mouth twice daily Sulfamethoxazole-Trimethoprim (Bactrim D s) 800-160 mg tablet Discontinued 1 TAB PO twice a day 6 August 13, 2023 12:00am November 17, 2023 2:51pm Start: 08-13-2023 take 1 tablet by linden twice daily Sulfamethoxazole-Trimethoprim (Bactrim D s) 800-160 mg tablet Active 1 TAB PO twice a day 6 August 13, 2023 12:00am Start: 04-12-2023 End: 05-14-2023 take 2 tablets by mouth every twelve hours Sulfamethoxazole-Trimethoprim (Bactrim) 400-80 mg tablet Discontinued 2 TAB PO Q12H 25 12April 12, 2023 1:00am May 14, 2023 2:21pm Start: 04-12-2023 End: 05-14-2023 take 2 tablets by mouth every twelve hours Sulfamethoxazole-Trimethoprim (Bactrim) 400-80 mg tablet Discontinued 2 TAB PO Q12H 28 April 12, 2023 12:00am May 14, 2023 1:21pm Start: 04-12-2023 take 2 tablets by mo [facility] every twelve hours Sulfamethoxazole-Trimethoprim (Bactrim) 400-80 mg tablet Active 2 TAB PO Q12H 28 7 April 12, 2023 12:00am Start: 12-21-2022 End: 01-21-2023 take 1 tablet by mouth every twelve hours Sulfamethoxazole-Trimethoprim (Bactrim D s) 800-160 mg tablet Discontinued 1 TAB PO Q12H 8 4 December 21, 2022 1:52pm January 21, 2023 1:50pm Start: 12-21-2022 End: 01-21-2023 take 1 tablet by mouth every twelve hours Sulfamethoxazole-Trimethoprim (Bactrim D s) 800-160 mg tablet Discontinued 1 TAB PO Q12H 8 4 December 21, 2022 2:52pm January 21, 2023 2:50pm Start: 12-21-2022 take 1 tablet by linden th every twelve hours Sulfamethoxazole-Trimethoprim (Bactrim D s) 800-160 mg tablet Active 1 TAB PO Q12H 8 4 December 21, 2022 2:52pm Start: 12-19-2022 End: 12-21-2022 take 1 tablet by mouth every twelve hours Sulfamethoxazole-Trimethoprim (Bactrim D s) 800-160 mg tablet Discontinued 1 TAB PO Q12H 6 3 2022 11:00pm December 21, 2022 1:53pm Start: 12-19-2022 End: 12-21-2022 take 1 tablet by mouth every twelve hours Sulfamethoxazole-Trimethoprim (Bactrim D s) 800-160 mg tablet Discontinued 1 TAB PO Q12H 6 3 December 19, 2022 12:00am December 21, 2022 2:53pm Start: 08-26-2022 End: 09-16-2022 take 1 tablet by mouth every twelve hours Sulfamethoxazole-Trimethoprim (Bactrim D s) 800-160 mg tablet Discontinued 1 TAB PO Q12H 14 August 25, 2022 11:00pm September 16, 2022 1:34pm Start: 08-26-2022 End: 09-16-2022 take 1 tablet by mouth every twelve hours Sulfamethoxazole-Trimethoprim (Bactrim D s) 800-160 mg tablet Discontinued 1 TAB PO Q12H 14 August 26, 2022 12:00am September 16, 2022 2:34pm Start: 08-26-2022 take 1 tablet by linden th every twelve hours Sulfamethoxazole-Trimethoprim (Bactrim D s) 800-160 mg tablet Active 1 TAB PO Q12H 14 7 August 26, 2022 12:00am Start: 07-02-2022 End: 07-30-2022 take 1 tablet by mouth twice daily Sulfamethoxazole-Trimethoprim 800-160 mg tablet Discontinued 1 TAB PO twice a day 6 3 July 02, 2022 12:00am July 30, 2022 2:15pm Start: 07-02-2022 End: 07-30-2022 take 1 tablet by mouth twice daily Sulfamethoxazole-Trimethoprim 800-160 mg tablet Discontinued 1 TAB PO twice a day 6 3 July 02, 2022 1:00am July 30, 2022 3:15pm Start: 07-02-2022 End: 07-30-2022 take 1 tablet by mouth twice daily Sulfamethoxazole-Trimethoprim Discontinu ed 1 TAB PO twice a day 6 3 July 02, 2022 1:00am July 30, 2022 3:15pm Start: 07-02-2022 End: 07-30-2022 take 1 tablet by mouth twice daily Sulfamethoxazole-Trimethoprim Discontinu ed 1 TAB PO twice a day 6 3 July 02, 2022 12:00am July 30, 2022 2:15pm Start: 07-02-2022 take 1 tablet by linden th twice daily Sulfamethoxazole-Trimethoprim Active 1 T AB PO twice a day 6 July 02, 2022 12:00am Triamcinolone (4 sources) Corticosteroid Start: 01-24-2024 Triamcinolone Acetonide 0.1 % cream Active 1 ESTHER TOP twice a day as needed for outbreak/dermatitis January 23, 2024 11:00pm as needed use twice daily for up to 2 weeks at a time for affected areas Start: 01-24-2024 Triamcinolone Acetonide 0.1 % cream Active 1 ESTHER TOP twice a day as needed for outbreak/dermatitis January 24, 2024 12:00am as needed use twice daily for up to 2 weeks at a time for affected areas 24 hr venlafaxine 37.5 mg extended release oral tablet (20 sources) Serotonin and Norepinephrine Reuptake Inhibitor Start: 07-14-2023 End: 03-30-2024 take 1 capsule by mouth once daily Venlafaxine 37.5 mg capsule,extended release 24hr Active 75 MG PO Daily 180 March 30, 2024 7:25am Start: 07-14-2023 take 37.5 mg by mout h once daily Venlafaxine Active 37.5 MG PO Daily July 14, 2023 12:00pm Start: 01-28-2023 End: 02-12-2023 take 1 tablet by mouth once daily Venlafaxine 37.5 mg tablet Discontinued 37.5 MG PO Daily January 27, 2023 11:00pm January 28, 2023 11:12am Start: 01-28-2023 End: 02-12-2023 take 1 capsule by mouth once daily Venlafaxine 37.5 mg capsule,extended release 24hr Discontinued 37.5 MG PO Daily January 27, 2023 11:00pm February 12, 2023 12:13pm Completed/Discontinued Medications Medication Drug Class(es) Dates Sig (Normalized) Sig (Original) Albuterol (20 sources) beta2-Adrenergic Agonist Start: 10-01-2022 End: 11-21-2022 take 1 puff(s) by inhalation every four to six hours Albuterol Sulfate Discontinued 1 PUFF INH every 4-6 hours 6.7 September 30, 2022 11:00pm November 21, 2022 1:46pm Start: 10-01-2022 End: 11-21-2022 take 1 puff(s) by inhalation every four to six hours Albuterol Sulfate Discontinued 1 PUFF INH every 4-6 hours 6.7 October 01, 2022 12:00am November 21, 2022 2:46pm Albuterol Sulfate 90 mcg/actuation HFA aerosol inhaler (5 sources) Start: 10-01-2022 End: 11-21-2022 take 1 puff(s) by inhalation every four to six hours as needed for wheezing Albuterol Sulfate 90 mcg/actuation HFA aerosol inhaler Discontinued 1 PUFF INH every 4-6 hours as needed for shortness of breath or wheezing 6.7 September 30, 2022 11:00pm November 21, 2022 1:46pm Start: 10-01-2022 End: 11-21-2022 take 1 puff(s) by inhalation every four to six hours as needed for wheezing Albuterol Sulfate 90 mcg/actuation HFA aerosol inhaler Discontinued 1 PUFF INH every 4-6 hours as needed for shortness of breath or wheezing 6.7 October 01, 2022 12:00am November 21, 2022 2:46pm Ascorbate Calcium (Vitamin C) (20 sources) Start: 12-26-2020 End: 01-02-2021 take 500 mg by mouth every other day Ascorbate Calcium (Vitamin C) Discontinued 500 MG PO .every other day December 25, 2020 11:00pm January 02, 2021 10:06am Start: 12-26-2020 End: 01-02-2021 take 500 mg by mouth every other day Ascorbate Calcium (Vitamin C) Discontinued 500 MG PO .every other day December 26, 2020 12:00am January 02, 2021 11:06am Ascorbate Calcium (Vitamin C) 500 mg tablet (5 sources) Start: 12-26-2020 End: 01-02-2021 take 1 tablet by mouth every other day Ascorbate Calcium (Vitamin C) 500 mg tablet Discontinued 500 MG PO .every other day December 25, 2020 11:00pm January 02, 2021 10:06am Start: 12-26-2020 End: 01-02-2021 take 1 tablet by mouth every other day Ascorbate Calcium (Vitamin C) 500 mg tablet Discontinued 500 MG PO .every other day December 26, 2020 12:00am January 02, 2021 11:06am ascorbic acid 500 mg oral tablet (20 sources) Vitamin C Start: 03-12-2021 End: 08-28-2022 take 1 tablet by mouth once daily Ascorbic Acid (Vitamin C) (Vitamin C) 500 mg Tablet Discontinued 500 MG PO Daily March 11, 2021 11:00pm August 28, 2022 1:58pm ascorbic acid, v itamin C, (VITAMIN C) 500 mg tablet Take 1 tablet by mouth every 48 hours. 0 Active Comment on above: Take 1 tablet by linden th every 48 hours. azithromycin 250 mg oral tablet (20 sources) Macrolide Antimicrobial Start: 10-01-2022 End: 11-21-2022 Azithromycin (Zithromax) 250 mg tablet Discontinued 0 PO .COMPLEX 6 September 30, 2022 11:00pm November 21, 2022 1:46pm For 250 mg dose pack: take 500 mg today (day 1), then 250 mg for 4 days (days 2-5) PO Start: 05-12-2021 End: 05-21-2021 take 2-5 tablets by mouth once daily Azithromycin 250 mg tablet Discontinued 0 PO .COMPLEX May 12, 2021 12:00am May 21, 2021 2:31pm take 500 mg today (day 1), then 250 mg for 4 days (days 2-5) PO Start: 05-12-2021 End: 05-21-2021 Azithromycin Discontinued 0 PO .COMPLEX May 12, 2021 12:00am May 21, 2021 2:31pm take 500 mg today (day 1), then 250 mg for 4 days (days 2-5) PO Start: 05-12-2021 End: 05-21-2021 Azithromycin Discontinued 0 PO .COMPLEX May 12, 2021 1:00am May 21, 2021 3:31pm take 500 mg today (day 1), then 250 mg for 4 days (days 2-5) PO benzonatate 100 mg oral capsule (20 sources) Non-narcotic Antitussive Start: 05-15-2021 End: 06-02-2021 take 1 capsule by mouth twice daily as needed for cough Benzonatate 100 mg capsule Discontinued 100 MG PO twice a day as needed for cough May 15, 2021 12:00am June 02, 2021 11:22am fluconazole 150 mg oral tablet (20 sources) Azole Antifungal Start: 12-03-2023 End: 01-24-2024 Fluconazole 150 mg tablet Discontinued 150 MG PO Q3D December 02, 2023 11:00pm January 24, 2024 1:28pm may repeat second dose 72 hrs after first dose if symptoms persist Start: 06-30-2022 End: 08-13-2022 Fluconazole (Diflucan) 150 m g tablet Discontinued 150 MG PO Q3D June 30, 2022 12:00am August 13, 2022 2:08pm may repeat second dose 72 hrs after first dose if symptoms persist Only take if you develop signs of a yeast infection Start: 11-29-2021 End: 02-04-2022 Fluconazole 150 mg tablet Di scontinued 150 MG PO .COMPLEX 2 November 28, 2021 11:00pm February 04, 2022 12:47pm 150 mg PO; Take 1 tablet now, may repeat in 72 hours if symptoms persist fosfomycin 3000 mg powder fo r oral solution (20 sources) Start: 12-19-2022 End: 12-21-2022 Fosfomycin Tromethamine 3 gr am packet Discontinued 1 PACKET PO once 2022 11:00pm December 21, 2022 1:04pm Start: 12-19-2022 End: 12-21-2022 Fosfomycin Tromethamine Disc ontinued 1 PACKET PO once December 19, 2022 12:00am December 21, 2022 2:04pm Lactobacillus acidophilus (20 sources) Start: 12-26-2020 End: 01-02-2021 Lactobacillus acidophilus (P robiotic) Discontinued PO .once a day December 25, 2020 11:00pm January 02, 2021 10:06am Start: 12-26-2020 End: 01-02-2021 Lactobacillus acidophilus (P robiotic) Discontinued PO .once a day December 26, 2020 12:00am January 02, 2021 11:06am Levalbuterol Tartrate (Xopenex Hfa) 45 mcg/actuation HFA aerosol inhaler (20 sources) Start: 05-21-2021 End: 06-05-2021 take 1 puff(s) by inhalation every four to six hours as needed for wheezing Levalbuterol Tartrate (Xopenex Hfa) 45 mcg/actuation HFA aerosol inhaler Discontinued 2 PUFF INH every 4-6 hours as needed for shortness of breath or wheezing May 21, 2021 12:00am June 05, 2021 1:54pm Start: 05-21-2021 End: 06-05-2021 take 1 puff(s) by inhalation every four to six hours as needed for wheezing Levalbuterol Tartrate (Xopenex Hfa) 45 mcg/actuation HFA aerosol inhaler Discontinued 2 PUFF INH every 4-6 hours as needed for shortness of breath or wheezing May 21, 2021 1:00am June 05, 2021 2:54pm Start: 05-21-2021 End: 06-05-2021 take 1 puff(s) by inhalation every four to six hours Levalbuterol Tartrate (Xopenex Hfa) 45 mcg/actuation HFA aerosol inhaler Discontinued 2 PUFF INH every 4-6 hours May 21, 2021 12:00am June 05, 2021 1:54pm Start: 05-21-2021 End: 06-05-2021 take 1 puff(s) by inhalation every four to six hours Levalbuterol Tartrate (Xopenex Hfa) 45 mcg/actuation HFA aerosol inhaler Discontinued 2 PUFF INH every 4-6 hours May 21, 2021 1:00am June 05, 2021 2:54pm levothyroxine (20 sources) l-Thyroxine Start: 11-04-2021 End: 02-04-2022 take 1 tablet by mouth once daily Levothyroxine 25 mcg tablet Discontinued 25 MCG PO Daily November 04, 2021 7:36am February 04, 2022 1:41pm Start: 11-04-2021 End: 02-04-2022 take 1 tablet by mouth once daily Levothyroxine 25 mcg tablet Discontinued 25 MCG PO Daily November 04, 2021 8:36am February 04, 2022 2:41pm Start: 11-04-2021 End: 02-04-2022 take 25 ug by mouth once daily Levothyroxine Discontin ued 25 MCG PO Daily November 04, 2021 7:36am February 04, 2022 1:41pm Start: 11-04-2021 End: 02-04-2022 take 25 ug by mouth once daily Levothyroxine Discontin ued 25 MCG PO Daily November 04, 2021 8:36am February 04, 2022 2:41pm Start: 11-04-2021 take 25 ug by mouth once daily Levothyroxine Active 25 MCG PO Daily November 04, 2021 8:36am Start: 05-26-2021 End: 11-04-2021 take 1 tablet by mouth once daily Levothyroxine 25 mcg tablet Discontinued 25 MCG PO Daily May 26, 2021 5:33pm November 04, 2021 7:36am Start: 05-26-2021 End: 11-04-2021 take 1 tablet by mouth once daily Levothyroxine 25 mcg tablet Discontinued 25 MCG PO Daily May 26, 2021 6:33pm November 04, 2021 8:36am Start: 05-26-2021 End: 11-04-2021 take 25 ug by mouth once daily Levothyroxine Discontin ued 25 MCG PO Daily May 26, 2021 5:33pm November 04, 2021 7:36am Start: 05-26-2021 End: 11-04-2021 take 25 ug by mouth once daily Levothyroxine Discontin ued 25 MCG PO Daily May 26, 2021 6:33pm November 04, 2021 8:36am Start: 05-14-2021 End: 05-26-2021 take 1 tablet by mouth once daily Levothyroxine 25 mcg tablet Discontinued 25 MCG PO Daily May 14, 2021 7:54am May 26, 2021 5:34pm Start: 05-14-2021 End: 05-26-2021 take 1 tablet by mouth once daily Levothyroxine 25 mcg tablet Discontinued 25 MCG PO Daily May 14, 2021 8:54am May 26, 2021 6:34pm Start: 05-14-2021 End: 05-26-2021 take 25 ug by mouth once daily Levothyroxine Discontin ued 25 MCG PO Daily May 14, 2021 7:54am May 26, 2021 5:34pm Start: 05-14-2021 End: 05-26-2021 take 25 ug by mouth once daily Levothyroxine Discontin ued 25 MCG PO Daily May 14, 2021 8:54am May 26, 2021 6:34pm Start: 12-26-2020 End: 05-14-2021 take 1 tablet by mouth once daily Levothyroxine 25 mcg tablet Discontinued 25 MCG PO Daily December 25, 2020 11:00pm May 14, 2021 7:54am Start: 12-26-2020 End: 05-14-2021 take 1 tablet by mouth once daily Levothyroxine 25 mcg tablet Discontinued 25 MCG PO Daily December 26, 2020 12:00am May 14, 2021 8:54am Start: 12-26-2020 End: 05-14-2021 take 25 ug by mouth once daily Levothyroxine Discontin ued 25 MCG PO Daily December 25, 2020 11:00pm May 14, 2021 7:54am Start: 12-26-2020 End: 05-14-2021 take 25 ug by mouth once daily Levothyroxine Discontin ued 25 MCG PO Daily December 26, 2020 12:00am May 14, 2021 8:54am linaclotide 0.072 mg oral capsule (5 sources) Guanylate Cyclase-C Agonist Start: 08-16-2023 take 1 capsule by mouth once daily linaCLOtide (LINZESS) 72 mcg capsule Indications: Irritable bowel syndrome with constipation Take 1 capsule by mouth once daily. Administer on an empty stomach. Swallow whole; DO NOT crush or chew. 30 capsule 5 08/16/2023 Active Comment on above: Take 1 capsule by mo ut once daily. Administer on an empty stomach. Swallow whole; DO NOT crush or chew. metoclopramide 10 mg oral tablet (20 sources) Dopamine-2 Receptor Antagonist Start: 02-17-2024 End: 03-27-2024 take 1 tablet by mouth twice daily Metoclopramide Hcl (Reglan) 10 mg tablet Discontinued 10 MG PO twice a day 28 February 17, 2024 2:15pm March 27, 2024 8:13am Start: 05-14-2023 End: 11-17-2023 take 1 tablet by mouth twice daily Metoclopramide Hcl (Reglan) 10 mg tablet Discontinued 10 MG PO twice a day 42 May 14, 2023 12:00am November 17, 2023 1:48pm can take 1 tab twice daily for next 3 weeks until GI appointment Start: 02-24-2023 End: 05-14-2023 take 1 tablet by mouth three times daily as needed for nausea and vomiting Metoclopramide Hcl (Reglan) 5 mg tablet Discontinued 5 MG PO three times a day as needed for nausea and vomiting 60 February 24, 2023 8:09am May 14, 2023 1:20pm use as sparingly as possible, just as needed Start: 07-02-2022 End: 11-21-2022 take 1 tablet by mouth three times daily as needed for nausea and vomiting Metoclopramide Hcl (Reglan) 5 mg tablet Discontinued 5 MG PO three times a day as needed for nausea and vomiting September 25, 2022 11:30am November 21, 2022 1:47pm Start: 06-17-2022 End: 06-30-2022 take 1 tablet by mouth three times daily Metoclopramide Hcl (Reglan) 5 mg tablet Discontinued 5 MG PO three times a day 42 June 17, 2022 12:00am June 30, 2022 12:15pm take 1 tablet by linden th four times daily metoclopramide HCl (REGLAN) 5 mg tablet Take 5 mg by mouth four times daily. 0 Active Comment on above: Take 5 mg by mouth f our times daily. Multivitamin preparation (20 sources) Start: 12-26-2020 End: 08-28-2022 take 1 tablet by mouth once daily Multivitamin Discontinued 1 TAB PO Daily December 25, 2020 11:00pm August 28, 2022 1:58pm Start: 12-26-2020 End: 08-28-2022 take 1 tablet by mouth once daily Multivitamin Discontinued 1 TAB PO Daily December 26, 2020 12:00am August 28, 2022 2:58pm Start: 12-26-2020 take 1 tablet by linden th once daily Multivitamin Active 1 TAB PO Daily December 25, 2020 11:00pm Start: 12-26-2020 take 1 tablet by linden th once daily Multivitamin Active 1 TAB PO Daily December 26, 2020 12:00am Nitrofurantoin Monohyd/M-Cryst (Macrobid) 100 mg capsule (20 sources) Start: 11-21-2022 End: 12-15-2022 take 1 capsule by mouth twice daily at mealtime Nitrofurantoin Monohyd/M-Cryst (Macrobid) 100 mg capsule Discontinued 100 MG PO twice a day 14 November 21, 2022 2:14pm December 15, 2022 2:48pm must administer with a meal/food Start: 11-21-2022 End: 12-15-2022 take 1 capsule by mouth twice daily at mealtime Nitrofurantoin Monohyd/M-Cryst (Macrobid) 100 mg capsule Discontinued 100 MG PO twice a day 14 November 21, 2022 3:14pm December 15, 2022 3:48pm must administer with a meal/food Start: 11-21-2022 take 1 capsule by mo [facility] twice daily at mealtime Nitrofurantoin Monohyd/M-Cryst (Macrobid) 100 mg capsule Active 100 MG PO twice a day 14 November 21, 2022 3:14pm must administer with a meal/food Start: 11-21-2022 End: 11-21-2022 take 1 capsule by mouth twice daily at mealtime Nitrofurantoin Monohyd/M-Cryst (Macrobid) 100 mg capsule Discontinued 100 MG PO twice a day 14 November 20, 2022 11:00pm November 21, 2022 2:14pm must administer with a meal/food Start: 11-21-2022 End: 11-21-2022 take 1 capsule by mouth twice daily at mealtime Nitrofurantoin Monohyd/M-Cryst (Macrobid) 100 mg capsule Discontinued 100 MG PO twice a day 14 November 21, 2022 12:00am November 21, 2022 3:14pm must administer with a meal/food Nystatin 100,000 unit/gram cream (5 sources) Start: 01-02-2021 End: 01-12-2021 Nystatin 100,000 unit/gram c ream Discontinued 1 ESTHER TOP three times a day 30 January 01, 2021 11:00pm January 10, 2021 11:00pm January 11, 2021 11:00pm Start: 01-02-2021 End: 01-12-2021 Nystatin 100,000 unit/gram c ream Discontinued 1 ESTHER TOP three times a day 30 January 02, 2021 12:00am January 11, 2021 12:00am January 12, 2021 12:00am Start: 01-02-2021 End: 01-12-2021 Nystatin 100,000 unit/gram c ream Discontinued 1 ESTHER TOP three times a day 30 January 02, 2021 12:00am January 12, 2021 12:00am Nystatin 100,000 unit/gram powder (15 sources) Start: 12-03-2023 End: 01-24-2024 Nystatin 100,000 unit/gram p owder Discontinued 1 ESTHER TOP twice a day 30 December 03, 2023 2:40pm January 24, 2024 1:28pm Start: 12-03-2023 End: 01-24-2024 Nystatin 100,000 unit/gram p owder Discontinued 1 ESTHER TOP twice a day 30 December 03, 2023 3:40pm January 24, 2024 2:28pm Start: 12-03-2023 Nystatin 100,0 00 unit/gram powder Active 1 ESTHER TOP twice a day December 03, 2023 3:40pm Start: 11-17-2023 End: 12-03-2023 Nystatin 100,000 unit/gram p owder Discontinued 1 ESTHER TOP twice a day November 17, 2023 2:18pm December 03, 2023 2:40pm Start: 11-17-2023 End: 12-03-2023 Nystatin 100,000 unit/gram p owder Discontinued 1 ESTHER TOP twice a day November 17, 2023 3:18pm December 03, 2023 3:40pm Start: 10-14-2023 End: 11-17-2023 Nystatin 100,000 unit/gram p owder Discontinued 1 ESTHER TOP twice a day October 13, 2023 11:00pm November 17, 2023 2:20pm Start: 10-14-2023 End: 11-17-2023 Nystatin 100,000 unit/gram p owder Discontinued 1 ESTHER TOP twice a day October 14, 2023 12:00am November 17, 2023 3:20pm Olopatadine (Pataday Once Daily Relief) 0.2 % drops (20 sources) Start: 11-05-2021 End: 02-04-2022 take 1 drop(s) into the eye(s) once daily Olopatadine (Pataday Once Daily Relief) 0.2 % drops Discontinued 1 DROP EYE-BOTH once 2.November 04, 2021 11:00pm February 04, 2022 12:47pm Start: 11-05-2021 End: 02-04-2022 take 1 drop(s) into the eye(s) once daily Olopatadine (Pataday Once Daily Relief) 0.2 % drops Discontinued 1 DROP EYE-BOTH once 2.November 05, 2021 12:00am February 04, 2022 1:47pm Start: 11-05-2021 take 1 drop(s) into the eye(s) once daily Olopatadine (Pataday Once Daily Relief) 0.2 % drops Active 1 DROP EYE-BOTH once 2.November 05, 2021 12:00am Polymyxin B Sulf-Trimethopri m (Polytrim) 10,000 unit- 1 mg/mL drops (20 sources) Start: 09-03-2021 End: 11-05-2021 Polymyxin B Sulf-Trimethopri m (Polytrim) 10,000 unit- 1 mg/mL drops Discontinued 2 DROP OP four times daily September 02, 2021 11:00pm November 05, 2021 2:10pm Start: 09-03-2021 End: 11-05-2021 Polymyxin B Sulf-Trimethopri m (Polytrim) 10,000 unit- 1 mg/mL drops Discontinued 2 DROP OP four times daily September 03, 2021 12:00am November 05, 2021 3:10pm predniSONE 20 mg oral tablet (20 sources) Start: 10-01-2022 End: 11-21-2022 take 1 tablet by mouth twice daily Prednisone 20 mg tablet Discontinued 20 MG PO twice a day 10 September 30, 2022 11:00pm November 21, 2022 1:47pm Start: 05-21-2021 End: 06-02-2021 take 1 tablet by mouth twice daily Prednisone 20 mg tablet Discontinued 20 MG PO twice a day 10 May 21, 2021 12:00am June 02, 2021 11:21am sertraline 100 mg oral tablet (20 sources) Serotonin Reuptake Inhibitor Start: 04-12-2023 End: 07-14-2023 take 1 tablet by mouth once daily Sertraline 100 mg tablet Discontinued 100 MG PO Daily April 12, 2023 12:00am July 14, 2023 11:00am Start: 12-21-2022 End: 02-12-2023 Sertraline 100 mg tablet Discontinued 150 MG PO Daily December 21, 2022 1:51pm February 12, 2023 11:39am Start: 12-21-2022 End: 02-12-2023 take 150 mg by mouth once daily Sertraline Discontinue d 150 MG PO Daily December 21, 2022 2:51pm February 12, 2023 12:39pm Start: 12-26-2020 End: 12-21-2022 take 1 tablet by mouth once daily Sertraline 100 mg tablet Discontinued 100 MG PO Daily August 27, 2021 10:52am December 21, 2022 1:51pm Sucralfate (20 sources) Aluminum Complex Start: 05-14-2023 End: 03-30-2024 take 1 tablet by mouth every six hours as needed Sucralfate (Carafate) 1 gram tablet Discontinued 1 GM PO Q6H as needed for stomach upset May 14, 2023 12:00am March 30, 2024 6:58am Start: 05-14-2023 take 1 tablet by linden th every six hours as needed Sucralfate (Carafate) 1 gram tablet Active 1 GM PO Q6H as needed for stomach upset May 14, 2023 1:00am Start: 05-14-2023 take 1 tablet by linden th every six hours as needed Sucralfate (Carafate) 1 gram tablet Active 1 GM PO Q6H as needed May 14, 2023 1:00am Start: 05-14-2023 take 1 tablet by linden th every six hours Sucralfate (Carafate) 1 gram tablet Active 1 GM PO Q6H May 14, 2023 1:00am Start: 05-14-2023 take 1 tablet by linden th every six hours Sucralfate (Carafate) 1 gram tablet Active 1 GM PO Q6H May 14, 2023 12:00am Start: 06-02-2022 End: 06-17-2022 take 1 tablet by mouth twice daily Sucralfate 1 gram tablet Discontinued 1 GM PO twice a day June 02, 2022 2:22pm June 17, 2022 11:30am Start: 06-02-2022 End: 06-17-2022 take 1 tablet by mouth twice daily Sucralfate 1 gram tablet Discontinued 1 GM PO twice a day June 02, 2022 3:22pm June 17, 2022 12:30pm Start: 06-02-2022 End: 06-17-2022 take 1 g by mouth twice daily Sucralfate Discontinued 1 GM PO twice a day June 02, 2022 3:22pm June 17, 2022 12:30pm Start: 06-02-2022 End: 06-17-2022 take 1 g by mouth twice daily Sucralfate Discontinued 1 GM PO twice a day June 02, 2022 2:22pm June 17, 2022 11:30am Start: 06-02-2022 take 1 g by mouth twice daily Sucralfate Active 1 GM PO twice a day 60 June 02, 2022 2:22pm Start: 05-28-2022 End: 06-02-2022 take 1 tablet by mouth twice daily Sucralfate 1 gram tablet Discontinued 1 GM PO twice a day 60 May 28, 2022 12:00am June 02, 2022 2:23pm Start: 05-28-2022 End: 06-02-2022 take 1 tablet by mouth twice daily Sucralfate 1 gram tablet Discontinued 1 GM PO twice a day 60 May 28, 2022 1:00am June 02, 2022 3:23pm Start: 05-28-2022 End: 06-02-2022 take 1 g by mouth twice daily Sucralfate Discontinued 1 GM PO twice a day 60 May 28, 2022 1:00am June 02, 2022 3:23pm Start: 05-28-2022 End: 06-02-2022 take 1 g by mouth twice daily Sucralfate Discontinued 1 GM PO twice a day 60 May 28, 2022 12:00am June 02, 2022 2:23pm Start: 02-04-2022 End: 05-27-2022 take 1 tablet by mouth twice daily Sucralfate 1 gram tablet Discontinued 1 GM PO twice a day 60 February 03, 2022 11:00pm May 27, 2022 5:52pm Start: 02-04-2022 End: 05-27-2022 take 1 tablet by mouth twice daily Sucralfate 1 gram tablet Discontinued 1 GM PO twice a day 60 February 04, 2022 12:00am May 27, 2022 6:52pm Start: 02-04-2022 End: 05-27-2022 take 1 g by mouth twice daily Sucralfate Discontinued 1 GM PO twice a day 60 February 04, 2022 12:00am May 27, 2022 6:52pm Start: 02-04-2022 End: 05-27-2022 take 1 g by mouth twice daily Sucralfate Discontinued 1 GM PO twice a day 60 February 03, 2022 11:00pm May 27, 2022 5:52pm Start: 02-04-2022 take 1 g by mouth twice daily Sucralfate Active 1 GM PO twice a day 60 February 03, 2022 11:00pm Start: 02-04-2022 take 1 g by mouth twice daily Sucralfate Active 1 GM PO twice a day 60 February 04, 2022 12:00am Start: 03-31-2021 End: 05-12-2021 take 1 tablet by mouth twice daily Sucralfate 1 gram tablet Discontinued 1 GM PO twice a day 60 March 30, 2021 11:00pm May 12, 2021 5:53pm Start: 03-31-2021 End: 05-12-2021 take 1 tablet by mouth twice daily Sucralfate 1 gram tablet Discontinued 1 GM PO twice a day 60 March 31, 2021 12:00am May 12, 2021 6:53pm Start: 03-31-2021 End: 05-12-2021 take 1 g by mouth twice daily Sucralfate Discontinued 1 GM PO twice a day 60 March 30, 2021 11:00pm May 12, 2021 5:53pm Start: 03-31-2021 End: 05-12-2021 take 1 g by mouth twice daily Sucralfate Discontinued 1 GM PO twice a day 60 March 31, 2021 12:00am May 12, 2021 6:53pm Problems Active Problems Problem Classification Problem Date Documented Date Episodic/Chronic Abdominal hernia (20 sources) Hiatal hernia; Translations: [Diaphragmatic hernia without obstruction or gangrene] 02-04-2022 Episodic Abdominal pain (20 sources) Abdominal pain; Translations: [Unspecified abdominal pain] 03-31-2021 Episodic Acute bronchitis (20 sources) Acute bronchitis; Translations: [Acute bronchitis, unspecified] 05-21-2021 Episodic Anxiety disorders (20 sources) Anxiety; Translations: [Anxiety disorder, unspecified] 01-02-2021 Chronic Chronic obstructive pulmonary disease and bronchiectasis (4 sources) Bronchitis, not specified as acute or chronic; Translations: [Bronchitis, not specified as acute or chronic] 10-01-2022 Episodic Coagulation and hemorrhagic disorders (8 sources) Senile purpura; Translations: [Other nonthrombocytopenic purpura] 01-24-2024 Episodic Deficiency and other anemia (20 sources) Normocytic anemia; Translations: [Anemia, unspecified] 12-21-2022 Episodic Deficiency and other anemia (6 sources) Anemia, unspecified; Translations: [Anemia, unspecified] 12-21-2022 Episodic Diseases of white blood cells (20 sources) Granulomatous disorder; 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] 08-26-2022 Chronic Disorders of lipid metabolism (20 sources) Hyperlipidemia; Translations: [Hyperlipidemia, unspecified] 03-31-2021 Chronic Diverticulosis and diverticulitis (20 sources) Diverticular disease; Translations: [Diverticulosis of intestine, part unspecified, without perforation or abscess without bleeding] 03-31-2021 Chronic Esophageal disorders (20 sources) Gastroesophageal reflux disease; Translations: [Gastro-esophageal reflux disease without esophagitis] 03-31-2021 Chronic Genitourinary congenital anomalies (20 sources) Congenital pelviureteric junction obstruction; Translations: [Other obstructive defects of renal pelvis and ureter] 08-28-2022 Chronic Comment on above: bilateral Headache; including migraine (1 source) Headache; including migraine 04-12-2023 Inflammation; infection of eye (except that caused by tuberculosis or sexually transmitteddisease) (20 sources) Episcleritis; Translations: [Unspecified episcleritis, unspecified eye] 11-21-2022 Episodic Menopausal disorders (4 sources) Postmenopausal atrophic vaginitis; Translations: [Postmenopausal atrophic vaginitis] 11-29-2021 Chronic Mood disorders (20 sources) Severe recurrent major depression without psychotic features; Translations: [Major depressive disorder, recurrent severe without psychotic features] 05-14-2023 Chronic Mycoses (11 sources) Candidal vulvovaginitis; Translations: [Acute candidiasis of vulva and vagina] 10-14-2023 Episodic Nausea and vomiting (2 sources) Nausea; Translations: [Nausea] 03-27-2024 Episodic Osteoporosis (20 sources) Osteoporosis; Translations: [Age-related osteoporosis without current pathological fracture] Onset: 12-26-2020 Chronic Other diseases of kidney and ureters (20 sources) Obstruction of pelviureteric junction; Translations: [Crossing vessel and stricture of ureter without hydronephrosis] 03-24-2021 Episodic Other diseases of kidney and ureters (20 sources) Hydronephrosis; Translations: [Unspecified hydronephrosis] 08-24-2022 Episodic Other diseases of kidney and ureters (10 sources) Unspecified hydronephrosis; Translations: [Hydronephrosis] 08-26-2022 Episodic Other diseases of kidney and ureters (20 sources) Abnormal renal function; Translations: [Disorder of kidney and ureter, unspecified] 01-21-2023 Episodic Other diseases of kidney and ureters (6 sources) Disorder of kidney and ureter, unspecified; Translations: [Unspecified disorder of kidney and ureter] 01-21-2023 Episodic Other disorders of stomach and duodenum (20 sources) Gastroparesis syndrome; Translations: [Gastroparesis] 02-04-2022 Episodic Other disorders of stomach and duodenum (20 sources) Gastroparesis; Translations: [Gastroparesis] Onset: 4 02-04-2022 Episodic Other ear and sense organ disorders (20 sources) Bilateral tinnitus; Translations: [Tinnitus, bilateral] 12-28-2020 Episodic Other ear and sense organ disorders (6 sources) Tinnitus, bilateral; Translations: [Tinnitus, unspecified] 01-21-2023 Episodic Other eye disorders (16 sources) Dry eyes; Translations: [Dry eye syndrome of bilateral lacrimal glands] 05-14-2023 Episodic Other eye disorders (3 sources) Dry eye syndrome of bilateral lacrimal glands; Translations: [Tear film insufficiency, unspecified] 05-14-2023 Episodic Other gastrointestinal disorders (10 sources) Chronic idiopathic constipation; Translations: [Chronic idiopathic constipation] 08-16-2023 Chronic Other gastrointestinal disorders (1 source) Irritable bowel syndrome characterized by constipation; Translations: [Irritable bowel syndrome with constipation] 08-16-2023 Chronic Other gastrointestinal disorders (4 sources) Chronic idiopathic constipation; Translations: [Constipation, unspecified] Onset: 4 11-17-2023 Chronic Other gastrointestinal disorders (20 sources) Abdominal bloating; Translations: [Abdominal distension (gaseous)] 03-12-2021 Episodic Other gastrointestinal disorders (20 sources) Dark stools; Translations: [Other fecal abnormalities] 06-17-2022 Episodic Other gastrointestinal disorders (10 sources) Other fecal abnormalities; Translations: [Nonspecific abnormal findings in stool contents] 06-17-2022 Episodic Other gastrointestinal disorders (8 sources) Abdominal distension (gaseous); Translations: [Flatulence, eructation, and gas pain] 10-14-2023 Episodic Other inflammatory condition of skin (20 sources) Psoriasis; Translations: [Psoriasis, unspecified] 12-03-2021 Chronic Other inflammatory condition of skin (4 sources) Psoriasis, unspecified; Translations: [Other psoriasis] 01-24-2024 Chronic Other lower respiratory disease (20 sources) Cough; Translations: [Cough] 05-12-2021 Episodic Other non-traumatic joint disorders (20 sources) Chronic ankle pain; Translations: [Pain in left ankle and joints of left foot] 04-08-2022 Episodic Other non-traumatic joint disorders (7 sources) Pain in left ankle and joints of left foot; Translations: [Pain in joint, ankle and foot] 04-08-2022 Episodic Other skin disorders (20 sources) Eruption; Translations: [Rash and other nonspecific skin eruption] 01-02-2021 Episodic Other upper respiratory infections (20 sources) Maxillary sinusitis; Translations: [Chronic maxillary sinusitis] 01-02-2021 Chronic Other upper respiratory infections (4 sources) Acute sinusitis, unspecified; Translations: [Acute sinusitis, unspecified] 10-01-2022 Episodic Residual codes; unclassified (20 sources) Postmenopausal state; Translations: [Asymptomatic menopausal state] 12-04-2021 Episodic Residual codes; unclassified (20 sources) Asymptomatic menopausal state; Translations: [Asymptomatic postmenopausal status (age-related) (natural)] 01-08-2022 Episodic Residual codes; unclassified (20 sources) Memory impairment; Translations: [Other amnesia] 04-08-2022 Episodic Residual codes; unclassified (12 sources) Other amnesia; Translations: [Memory loss] 04-08-2022 Episodic Thyroid disorders (20 sources) Hypothyroidism; Translations: [Hypothyroidism, unspecified] 02-04-2022 Chronic Unclassified (5 sources) Presented to ED with a complaint of Stomach pain 08-24-2022 Unclassified (2 sources) Presented to ED with a complaint of Sick to stomach, baez when urinating 03-27-2024 Urinary tract infections (5 sources) Urinary tract infections 01-16-2024 Past or Other Problems Problem Classification Problem Date Documented Da te Episodic/Chronic Fracture of upper limb (1 source) Displaced fracture of greater tuberosity of right humerus, initial encounter for closed fracture; Translations: [Displaced fracture of greater tuberosity of right humerus, initial encounter for closed fracture] Onset: 08-02-2023 Episodic Genitourinary symptoms and ill-defined conditions (20 sources) Dysuria; Translations: [Dysuria] Onset: 08-03-2023 06-30-2022 Episodic Inflammatory diseases of female pelvic organs (5 sources) Acute vaginitis; Translations: [Vaginitis and vulvovaginitis, unspecified] Onset: 10-14-2023 10-14-2023 Episodic Other gastrointestinal disorders (11 sources) Constipation, unspecified; Translations: [Constipation, unspecified] Onset: 08-03-2023 08-03-2023 Episodic Other screening for suspected conditions (not mental disorders or infectious disease) (20 sources) Patient encounter status; Translations: [Encounter for screening mammogram for malignant neoplasm of breast] Onset: 08-02-2023 06-17-2021 Episodic Spondylosis; intervertebral disc disorders; other back problems (20 sources) Low back pain; Translations: [Chronic lumbosacral pain] Onset: 12-03-2023 11-29-2021 Episodic Urinary tract infections (20 sources) Urinary tract infectious disease; Translations: [Urinary tract infection, site not specified] Onset: 12-03-2023 08-05-2021 Episodic Results Test Name Value Interpretation Reference Range Facility [facility] 03-30-2024 [facility] [address] [place] [id number] Office Visit Report Signed Patient Name: Sherry Ash [id number] Date of : 1945 Age/Sex: 78 / F Date of Service: Location: [facility] [place] Attending physician: Nicole Garcia DO Vital Signs 03/30/24 08:02 03/30/24 08:04 Height 5 ft 2 in Weight (kg) 152 lb 8 oz BMI 27.8 BP 112/68 112/68 BP Location Right Brachial BP Position Sitting BP Cuff Size Adult BP Source Manual Cuff Respiration 18 Pulse 58 L Pulse Source Monitor Temp 98.2 F Temp Source Temporal Artery Scan Pulse Oximetry (%) 96 Oxygen Delivery Method Room Air Intake Visit Reasons: ER Follow Up Allergies Allergy/AdvReac Type Severity Reaction Status Date / Time oxycodone Allergy Severe Headache Verified 03/30/24 07:57 Iodinated Contrast Media Allergy Mild headache, Verified 03/30/24 07:57 burning skin Penicillins Allergy Mild Rash Verified 03/30/24 07:57 Quinolones Allergy Mild Rash Verified 03/30/24 07:57 moxifloxacin Allergy Unknown Unknown Verified 03/30/24 07:57 cephalexin AdvReac Intermediate Vomiting Verified 03/30/24 07:57 doxycycline AdvReac Intermediate TEARS UP Verified 03/30/24 07:57 STOMACH- CAUSES ALOT OF PAIN hydrocodone AdvReac Intermediate vomiting, Verified 03/30/24 07:57 headache nitrofurantoin (From AdvReac Intermediate Vomiting Verified 03/30/24 07:57 Macrobid) albuterol AdvReac Mild HEADACHE,NA Verified 03/30/24 07:57 USEA bee venom protein (honey bee) AdvReac Mild swelling, Verified 03/30/24 07:57 vomiting calcium AdvReac Mild GI upset Verified 03/30/24 07:57 fluconazole AdvReac Mild Headache Verified 03/30/24 07:57 Current Medication List - Last Reconciled 03/30/24 by Alma Rodriguez alprazolam 0.25 mg tablet 0.25 mg PO BID PRN 30 days cholecalciferol (vitamin D3) 50 mcg (2,000 unit) capsule 50 mcg PO DAILY denosumab 60 mg/mL subcutaneous syringe (Prolia) 60 mg subcut [id number] fluticasone propionate 50 mcg/actuation nasal spray,suspension 1 spray Nostril-both DAILY loratadine 10 mg tablet 10 mg PO DAILY multivitamin 1 tab PO DAILY nystatin 100,000 unit/gram topical powder (Nystop) 1 applic topical BID PRN ondansetron 4 mg disintegrating tablet 4 mg PO Q6H PRN pantoprazole 40 mg tablet,delayed release 40 mg PO BID 90 days polyethylene glycol 3350 17 gram oral powder packet (Miralax) 17 grams PO DAILY PRN rosuvastatin 40 mg tablet 40 mg PO DAILY 90 days Saccharomyces boulardii (Daily Probiotic (S. boulardii)) PO DAILY triamcinolone acetonide 0.1 % topical cream 1 applic topical BID PRN 2 weeks venlafaxine 37.5 mg capsule,extended release 24 hr 37.5 mg PO DAILY 90 days NS Nurse's Note: Pt here for f/u after being seen in ER on 03/27/24. Pt states she is still having nausea and her eyes are burning. She is taking zofran prn. Pt states the ER diagnosed her with a GI virus. Pt states she went to [facility] in July, she was prescribed Linzess that made her sick. She does not have a f/u visit. [facility] Medical History (Updated 03/30/24 @ 08:49 by Nicole Garcia DO) Acute UTI (urinary tract infection) Congenital ureteropelvic junction obstruction Granulomatous disease Hydronephrosis Chronic pain of left ankle Abnormal mammogram Breast cancer screening by mammogram HTN (hypertension), benign Dyslipidemia Mitral regurgitation Aortic heart murmur Nonspecific ST-T wave electrocardiographic changes Bilateral tinnitus Osteoporosis Fracture of left ankle Adult hypothyroidism Pancreatitis Pneumonia Constipation Gastritis Bronchitis Anxiety Back pain UPJ (ureteropelvic junction) obstruction Cataracts, bilateral Heart murmur Seasonal allergies GERD (gastroesophageal reflux disease) High cholesterol Surgical History Hx of cataract surgery History of appendectomy H/O bladder repair surgery Hx of cholecystectomy Hx of hysterectomy Family History Father Diabetes mellitus Alcohol abuse Mother Elevated cholesterol Alcohol abuse Social History Social History History Provided by: Patient Living Situation History Usual Living Arrangement: Alone Anyone at Home Need Help While Hospitalized: No Tobacco History Smoking Status: Former Smoker Years Smoked: 38 Packs Per Day: 1 Other Form of Tobacco Used: Never Used Second Hand Tobacco Smoke Exposure: No AUDIT-C How Often do you Have a Drink Containing Alcohol: Never How Many Standard Drinks Containing Alcohol do you Have on a Typical Day: None How Often do you Have Six or More Drinks on One Occasion: Never AUDIT-C Alcohol Total Sc (more content not included)... Normal [facility] Rojas 03-27-[address] [place] [address] [place] Scan Report Signed Patient Name: Sherry Ash Date of : 1945 Account #:[id number] Age/Sex: 78 / F Location: ED Attending physician: Ordering Provider: Hugh Julian MD Date of Service: 03/27/24 Procedure(s): CT abd/pel wo con HISTORY: Lower abdominal pain. Possible kidney infection Study: CT abdomen and pelvis without contrast dated 03/27/2024. 10:13 a.m. TECHNIQUE: Axial images were obtained from the dome of the diaphragm down to the symphysis pubis without oral or IV contrast. Coronal and sagittal reconstruction imaging was performed. Coronal MPR images were reconstructed from the 3D data set. Individualized dose optimization techniques were used for the CT scan. Findings: In the lower thorax, a small right lower lobe pulmonary nodule measures about 7 mm likely benign. Within the abdomen, patient has had a previous cholecystectomy. The liver is otherwise normal. The spleen is normal. The pancreas is normal. The adrenal glands are normal. Bilateral extrarenal pelvii are noted with proximal hydronephrosis. The ureters are not dilated. No ureteral stones. Sigmoid diverticulosis is present. Bladder contours are smooth. IMPRESSION: Extrarenal pelves bilaterally with an element of congenital UPJ narrowing proximal hydronephrosis. Benign-appearing 7 mm right pulmonary nodule in the right lower lobe likely benign. 6-month follow-up CT of the chest is recommended to ensure stability. Sigmoid diverticulosis. Dictated By: Mihir Myers MD Signed By: 03/27/24 1037 DD/ 1034 TD/TT: 03/27/24 1034 Impregnator And Drier Helper: NATALIE Exam/Order Verified? Y Exam Explained to Patient/Family? Y Was Patient Shielded? N Is Patient ? N Consent Form Completed? Hx Last Menstrual Period: Does Patient have a Diabetic Device? No Diabetic Device Type: Was the Diabetic Device Removed? If NO: was Removal Consent form completed? Patient was informed of radiation exposure prior to scan? Verified by Technologist:[id number] Comment: [id number] cc: DO Hugh Bustos MD Normal [facility] Absolute eosinophil countOrd ered By: Hugh Julian on 03-27-2024 Histamine release from basophils measurement 0.0 10'3/uL 0.0-0.4 [facility] Alanine aminotransferase (AL T) measurementOrdered By: Hugh Julian on 03-27-2024 ALT [Catalytic activity/Vol] 17 U/L 0-55 [facility] AST [Catalytic activity/Vol] 23 U/L 5-34 [facility] Alkaline phosphataseOrdered By: Hugh Julian on 03-27-2024 ALP [Catalytic activity/Vol] 62 U/L 40-150 [facility] Automated absolute lymphocyt e countOrdered By: Hugh Julian on 03-27-2024 Lymphocytes # (Auto) 1.5 10'3/uL 0.5-3.5 [facility] Automated absolute neutrophi l countOrdered By: Hugh Julian on 03-27-2024 Absolute Neutrophil 4.4 10'3/uL 1.5-5.6 [facility] Automated blood hematocrit ( volume fraction)Ordered By: Hugh Julian on 03-27-2024 Hematocrit (Bld) [Volume fraction] 37.6 % Normal 34.6-44.1 [facility] Comment on above: Performed By: #### Samina Manning CP1, LIP #### [id number] [place] [address] BUN venousOrdered By: Hugh donnelly on 03-27-2024 Urea nitrogen (BldV) [Mass/Vol] 13 mg/dL 7-18 [facility] Basophils Auto (Bld) [#/Vol] Ordered By: Hugh Julian on 03-27-2024 Basophils (Bld) [#/Vol] 0.0 10'3/uL Low 0.1-0.2 [facility] Basophils/100 WBC Auto (Bld) Ordered By: Hugh Julian on 03-27-2024 Basophils/100 WBC (Bld) 1 % 0-1 [facility] Blood Cultureon 03-27-2024 Bacteria identified Cx Nom (Bld) Blood Culture AA RIGHT AC [id number] GROWTH AFTER 5 DAYSL Normal [facility] Comment on above: Performed By: #### Samina Manning CP1, LIP #### [id number] [place] [address] Blood anion gapOrdered By: Mary Julian on 03-27-2024 Anion gap (Bld) [Moles/Vol] 11 mmol/L 5-13 [facility] Blood erythrocytes count (nu mber/volume)Ordered By: Hugh Julian on 03-27-2024 RBC (Bld) [#/Vol] 4.32 10'6/uL 3.85-4.88 [facility] Blood platelets count (numbe r/volume)Ordered By: Hugh Julian on 03-27-2024 Platelets (Bld) [#/Vol] 143 10'3/uL 122-359 [facility] Calcium measurement (mass/vo lume)Ordered By: Hugh Julian on 03-27-2024 Calcium (Unsp spec) [Mass/Vol] 9.2 mg/dL 8.4-10.2 [facility] Complete Blood Count with Di ffon 03-27-2024 Basophils Absolute Auto 0.0 Low 0.1-0.2 [facility] Comment on above: Performed By: #### Samina Manning, CP1, LIP #### [facility] [address] [place] [address] Basophils Percent Auto 1 Normal 0-1 [facility] Comment on above: Performed By: #### Samina Manning, CP1, LIP #### [facility] [address] [place] [address] Eosinophils Absolute Auto 0.0 Normal 0.0-0.4 [facility] Comment on above: Performed By: #### Samina Manning, CP1, LIP #### [facility] [address] [place] [address] Eosinophils Percent Auto 0 Low 2-5 [facility] Comment on above: Performed By: #### Samina Manning, CP1, LIP #### [facility] [address] [place] [address] Lymphocytes Absolute Auto 1.5 Normal 0.5-3.5 [facility] Comment on above: Performed By: #### Samina Manning, CP1, LIP #### [facility] [address] [facility] [place] [address] Lymphocytes Percent Auto 24 Normal 20-35 [facility] Comment on above: Performed By: #### Samina Manning, CP1, LIP #### [facility] [address] [place] [address] MCH (RBC) [Entitic mass] 34.0 pg Normal 32.7-34.8 [facility] Comment on above: Performed By: #### Samina Manning CP1, LIP #### [facility] [address] [place] [address] Monocytes Absolute Auto 0.4 Normal 0.2-0.8 [facility] Comment on above: Performed By: #### Samina Manning CP1, LIP #### [facility] [address] [place] [address] Monocytes Percent Auto 6 Normal 4-12 [facility] Comment on above: Performed By: #### Samina Manning CP1, LIP #### [facility] [address] [place] [address] Neutrophils (Bld) [#/Vol] 4.4 10*3/uL Normal 1.5-5.6 [facility] Comment on above: Performed By: #### Samina Manning CP1, LIP #### [facility] [address] [place] [address] Platelets (Bld) [#/Vol] 143 10*3/uL Normal 122-359 [facility] Comment on above: Performed By: #### Samina Manning CP1, LIP #### [facility] [address] [place] [address] RBC (Bld) [#/Vol] 4.32 10*6/uL Normal 3.85-4.88 [facility] Comment on above: Performed By: #### Samina Manning CP1, LIP #### [facility] [address] [place] [address] WBC (Bld) [#/Vol] 6.2 10*3/uL Normal 3.2-9.3 [facility] Comment on above: Performed By: #### Samina Manning, CP1, LIP #### [facility] [address] [place] [address] Creatinine (Bld) [Mass/Vol]O rdered By: Hugh Julian on 03-27-2024 Creatinine [Mass/Vol] 0.87 mg/dL 0.57-1.11 [facility] EDon 03-27-2024 ED [facility] [address] [place] [address] Emergency Department Note Signed Patient Name: Sherry Ash Medical Rec ord #: [id number] Date of : 1945 Account #: [id number] Age/Sex: 78 / F Location: ED Attending physician: HPI - General Adult General Date of Visit: 03/27/24 Chief complaint: Urogenital-Female Time Seen by Provider: 03/27/24 09:00 History of Present Illness HPI narrative: The patient is a 78 year old who presented to the Emergency Department with the complaint of lower abdominal pain and dysuria. Patient tells me symptoms have been going on since this past Wednesday. She has been nauseated but has not vomited. She has had chills but denies fever. She complains of being raw in her genital area. 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 She has had stents in but it was not able to tolerate them for more than 3 weeks. 2 weeks ago she was placed on antibiotics because of a urinary tract infection. She completed the course, 5 days, of antibiotics without really complete resolution of her symptoms. Urine was not cultured. Mode of Arrival: Ambulatory Home Meds and Allergies Home Medications ???Medication ???Instructions ???Recorded ???Confirmed ???Type cholecalciferol (vitamin D3) 50 50 mcg PO DAILY 12/26/20 03/27/24 History mcg (2,000 unit) capsule loratadine 10 mg tablet 10 mg PO DAILY 08/24/22 03/27/24 History sucralfate 1 gram tablet (Carafate) 1 gm PO Q6H PRN stomach upset 05/14/23 03/27/24 History fluticasone propionate 50 1 spray Nostril-both DAILY #32 08/13/23 03/27/24 Rx mcg/actuation nasal grams spray,suspension denosumab 60 mg/mL subcutaneous 60 mg subcut [id number] 08/26/23 03/27/24 History syringe (Prolia) rosuvastatin 40 mg tablet 40 mg PO DAILY 90 days #90 tabs 11/10/23 03/27/24 Rx polyethylene glycol 3350 17 gram 17 gm PO DAILY PRN constipation 11/17/23 03/27/24 History oral powder packet (Miralax) pantoprazole 40 mg tablet,delayed 40 mg PO BID 90 days #180 tabs 12/22/23 03/27/24 Rx release triamcinolone acetonide 0.1 % 1 applic topical BID PRN 01/24/24 03/27/24 Rx topical cream outbreak/dermatitis 2 weeks #30 grams venlafaxine 37.5 mg 37.5 mg PO DAILY 90 days #90 caps 01/24/24 03/27/24 Rx capsule,extended release 24 hr alprazolam 0.25 mg tablet 0.25 mg PO BID PRN anxiety 30 days 02/17/24 03/27/24 Rx #60 tabs multivitamin 1 tab PO DAILY 02/17/24 03/27/24 History nystatin 100,000 unit/gram topical 1 applic topical BID 03/27/24 03/27/24 History powder (Nystop) ondansetron 4 mg disintegrating 4 mg PO Q6H PRN nausea and 03/27/24 Rx tablet vomiting #12 tabs Allergies Allergy/AdvReac Type Severity Reaction Status Date / Time oxycodone Allergy Severe Headache Verified 03/27/24 09:23 Iodinated Contrast Media Allergy Mild headache, Verified 03/27/24 09:23 burning skin Penicillins Allergy Mild Rash Verified 03/27/24 09:23 Quinolones Allergy Mild Rash Verified 03/27/24 09:23 moxifloxacin Allergy Unknown Unknown Verified 03/27/24 09:23 cephalexin AdvReac Intermediate Vomiting Verified 03/27/24 09:23 doxycycline AdvReac Intermediate TEARS UP Verified 03/27/24 09:23 STOMACH- CAUSES ALOT OF PAIN hydrocodone AdvReac Intermediate vomiting, Verified 03/27/24 09:23 headache nitrofurantoin (From AdvReac Intermediate Vomiting Verified 03/27/24 09:23 Macrobid) albuterol AdvReac Mild HEADACHE,NA Verified 03/27/24 09:23 USEA bee venom protein (honey bee) AdvReac Mild swelling, Verified 03/27/24 09:23 vomiting calcium AdvReac Mild GI upset Verified 03/27/24 09:23 fluconazole AdvReac Mild Headache Verified 03/27/24 09:23 Review of Systems Status of ROS: Reports: 10 or more systems reviewed and unremarkable except as noted in History and below History PFSH Medical History Congenital ureteropelvic junction obstruction Granulomatous disease Hydronephrosis Chronic pain of left ankle Abnormal mammogram Breast cancer screening by mammogram HTN (hypertension), benign Dyslipidemia Mitral regurgitation Aortic heart murmur Nonspecific ST-T wave electrocardiographic changes Bilateral tinnitus Osteoporosis Fracture of left ankle Adult hypothyroidism Pancreatitis Pneumonia Constipation Gastritis Bronchitis Anxiety Back pain UPJ (ureteropelvic junction) obstruction Cataracts, bilateral Heart murmur Seasonal allergies GERD (gastroesophageal reflux disease) High cholesterol Surgical History Hx of cataract surgery History of appendectomy H/O bladder repair surgery Hx of cholecystectomy Hx of hysterectomy Family History (Review (more content not included)... Normal [facility] Eosinophils/100 WBC Auto (Bl d)Ordered By: Hugh Julian on 03-27-2024 Eosinophils/100 WBC (Bld) 0 % Low 2-5 [facility] Estimated glomerular filtrat ion rate (GFR) determinationOrdered By: Hugh Julian on 03-27-2024 GFR/1.73 sq M.predicted among non-blacks MDRD (S/P/Bld) [Vol rate/Area] mL/min/{1.73_m2} mL/min/1.7 3m2 [facility] Laboratory - Chemistry and C hemistry - challengeOrdered By: Hugh Julian on 03-27-2024 Albumin [Mass/Vol] 4.2 g/dL 3.2-4.6 [facility] Lactic acid measurementOrder ed By: Hugh Julian on 03-27-2024 Lactate [Moles/Vol] 1.2 mmol/L Normal 0.4-2.0 [facility] Comment on above: Order Comment: Yes/N o query for Sepsis Lactate Rule: Y Performed By: #### C M, CP1, LIP #### [facility] [address] [place] [address] Lipase measurementOrdered By : Hugh Julian on 03-27-2024 Lipase [Catalytic activity/Vol] 36 U/L 8-78 [facility] Lymphocyte percentage, autom atedOrdered By: Hugh Julian on 03-27-2024 Lymphocytes/100 WBC (Bld) 24 % 20-35 [facility] MCV (mean corpuscular volume ) determinationOrdered By: Hugh Julian on 03-27-2024 MCV (RBC) [Entitic vol] 87.0 fL Normal 83.0-97.4 [facility] Comment on above: Performed By: #### Samina Manning CP1, LIP #### [facility] [address] [place] [address] Manual blood neutrophil coun t as percentage of leukocytesOrdered By: Hugh Julian on 03-27-2024 Neutrophils/100 WBC (Bld) 70 % Normal 41-72 [facility] Comment on above: Performed By: #### Samina Manning CP1, LIP #### [address] [place] [address] Mean corpuscular hemoglobin (MCH) determinationOrdered By: Hugh Julian on 03-27-2024 MCH (RBC) [Entitic mass] 29.6 pg Normal 27.8-33.2 [facility] Comment on above: Performed By: #### Samina Manning CP1, LIP #### [address] [place] [address] Mean corpuscular hemoglobin concentration (MCHC) determinationOrdered By: Hugh Julian on 03-27-2024 MCHC (RBC) [Mass/Vol] 34.0 g/dL 32.7-34.8 [facility] Monocytes Auto (Bld) [#/Vol] Ordered By: Hugh Julian on 03-27-2024 Monocytes (Bld) [#/Vol] 0.4 10'3/uL 0.2-0.8 [facility] Monocytes/100 WBC Auto (Bld) Ordered By: Hugh Julian on 03-27-2024 Monocytes/100 WBC (Bld) 6 % 4-12 [facility] MpvOrdered By: Hugh Julian on 03-27-2024 Platelet mean volume (Bld) [Entitic vol] 10.0 fL Normal 7.6-10.6 [facility] Comment on above: Performed By: #### Samina Manning CP1, LIP #### [address] [place] [address] No Panel InformationOrdered By: Hugh Julian on 03-27-2024 Urine Bacteria Trace /hpf 0 [facility] Occult blood ur QLOrdered By : Hugh Julian on 03-27-2024 Hemoglobin Ql (U) Negative Negative [facility] RDWOrdered By: Hugh Julian on 03-27-2024 Erythrocyte distribution width (RBC) [Ratio] 13.2 % Normal 12.2-15.8 [facility] Comment on above: Performed By: #### Samina Manning CP1, LIP #### [place] [address] Serum or plasma bilirubin me asurement (mass/volume)Ordered By: Hugh Julian on 03-27-2024 Bilirubin [Mass/Vol] 0.6 mg/dL 0.0-1.0 [facility] Serum or plasma carbon dioxi de measurement (moles/volume)Ordered By: Hugh Julian on 03-27-2024 CO2 [Moles/Vol] 23 mmol/L 23-31 [facility] Serum or plasma chloride thom surement (moles/volume)Ordered By: Hugh Juilan on 03-27-2024 Chloride [Moles/Vol] 105 mmol/L 98-107 [facility] Serum or plasma glucose eileen urement (mass/volume)Ordered By: Hugh Julian on 03-27-2024 Glucose [Mass/Vol] 111 mg/dL High 70-100 [facility] Serum or plasma potassium me asurement (moles/volume)Ordered By: Hugh Julian on 03-27-2024 Potassium [Moles/Vol] 4.2 mmol/L 3.5-5.1 [facility] Specific gravity Test strip (U) [Rel density]Ordered By: Hugh Julian on 03-27-2024 Specific gravity (U) [Rel density] 1.020 1.005-1.03 0 [facility] Squamous epithelial cells de tection in urine sediment by light microscopyOrdered By: Hugh Julian on 03-27-2024 Epithelial cells.squamous LM Ql (Urine sed) 0-2 0 [facility] Total protein bloodOrdered B y: Hugh Julian on 03-27-2024 Protein [Mass/Vol] 6.4 g/dL 6.4-8.2 [facility] UA with Reflex Cultureon Bilirubin Urine Negative Normal Negative [facility] Comment on above: Performed By: #### C M, CP1, LIP #### [facility] [address] [place] [address] Glucose Urine UA Negative Normal Negative [facility] Comment on above: Performed By: #### C M, CP1, LIP #### [facility] [address] [place] [address] Nitrite Urine Negative Normal NEGATIVE [facility] Comment on above: Performed By: #### C M, CP1, LIP #### [facility] [address] [place] [address] Occult Blood Urine Negative Normal Negative [facility] Comment on above: Performed By: #### C M, CP1, LIP #### [facility] [address] [place] [address] Protein Urine (Multistix) Negative Normal Negative [facility] Comment on above: Performed By: #### C M, CP1, LIP #### [facility] [address] [place] [address] Specific [place] Urine 1.020 Normal 1.005 -1.03 0 [facility] Comment on above: Performed By: #### C M, CP1, LIP #### [facility] [address] [place] [address] Urobilinogen Urine 0.2 Normal 0.2-1.0 [facility] Comment on above: Performed By: #### C M, CP1, LIP #### [facility] [address] [place] [address] UA with Reflex CultureOrdere d By: Hugh Julian on 03-27-2024 Leukocyte esterase Test strip Ql (U) Negative Normal Negative [facility] Comment on above: Performed By: #### Samina Manning CP1, LIP #### [facility] [address] [place] [address] Urine appearance determinati onOrdered By: Hugh Julian on 03-27-2024 Appearance (U) Clear Normal CLEAR [facility] Comment on above: Performed By: #### Samina Manning CP1, LIP #### [facility] [address] [place] [address] Urine bilirubin measurementO rdered By: Hugh Julian on 03-27-2024 Bilirubin Ql (U) Negative Negative [facility] Urine color determinationOrd ered By: Hugh Julian on 03-27-2024 Color (U) Yellow Normal YELLOW [facility] Comment on above: Performed By: #### Samina Manning CP1, LIP #### [facility] [address] [place] [address] Urine glucose detection by a utomated test stripOrdered By: Hugh Julian on 03-27-2024 Glucose Auto test strip Ql (U) Negative Negative [facility] Urine ketones measurementOrd ered By: Hugh Julian on 03-27-2024 Ketones Ql (U) Negative Normal Negative [facility] Comment on above: Performed By: #### Samina Manning CP1, LIP #### [facility] [address] [place] [address] Urine microscopic examinatio n for leukocytesOrdered By: Hugh Julian on 03-27-2024 Urine Microscopic WBC 0-2 /hpf 0 [facility] Urine nitrite detection by a utomated test stripOrdered By: Hugh Julian on 03-27-2024 Nitrite Auto test strip Ql (U) Negative NEGATIVE [facility] Urine pH measurementOrdered By: Hugh Julian on 03-27-2024 pH (U) 8.0 [pH] Normal 5.5-8.0 [facility] Comment on above: Performed By: #### Samina Manning CP1, LIP #### [facility] [address] [place] [address] Urine protein measurementOrd ered By: Hugh Julian on 03-27-2024 Protein Ql (U) Negative Negative [facility] Urine sediment erythrocyte c ount by microscopy (number/high power field)Ordered By: Hugh Julian on 03-27-2024 RBC LM.HPF (Urine sed) [#/Area] 0-2 /hpf 0-2 [facility] Urine urobilinogen measureme ntOrdered By: Hugh Julian on 03-27-2024 Urobilinogen Ql (U) 0.2 EU/dL 0.2-1.0 [facility] Venous blood sodium measurem entOrdered By: Hugh Julian on 03-27-2024 Sodium (BldV) [Moles/Vol] 139 mmol/L 136-145 [facility] WBC totalOrdered By: Hugh knight on 03-27-2024 White Blood Count 6.2 10'3/uL 3.2-9.3 [facility] Whole blood hemoglobin measu rement (mass/volume)Ordered By: Hugh Julian on 03-27-2024 Hemoglobin (Bld) [Mass/Vol] 12.8 g/dL Normal 11.7-14.9 [facility] Comment on above: Performed By: #### C M, CP1, LIP #### [facility] [address] [place] [address] A.OFFVISon 02-28-2024 A.OFFVIS [facility] [address] [place] [address] Office Visit Report Signed Patient Name: Sherry Ash [id number] Date of : 1945 Age/Sex: 78 / F Date of Service: Location: [facility] Orthopedics Attending physician: Joy Wan PA HPI HPI Prolia, No PA needed: Details: Sherry Ash is a 78 year old HPI Comments Details: Patient is here today for repeat Prolia injection. She has had no falls since her last visit here. She does not take calcium supplementation as it upsets her stomach. She is taking vitamin D. The patient reports a skin lesion that started 2-3 months ago, initially presenting as red with scales. In the last couple of days, the lesion has changed in appearance, becoming purple with scaly over top. She denies any pain or tenderness associated with the lesion and has no difficulty moving her arm. She has been under the care of a senior data modeler and her PCP and has been taking vitamin C with bioflavonoids and rosehips to control the psoriasis. She has a history of 2 fragility fractures. Secondary causes of osteoporosis include premature menopause after hysterectomy with bilateral salpingo-oophorectomy. No family history of fracture. She works out at the gym regularly. No family history of fracture. Ortho Exam Narrative Exam Narrative: - Physical Examination: - Skin: Dime-sized lesion on the arm, described as purple with scaly overlay, non-tender, not painful. Full range of motion without discomfort. - Musculoskeletal: No falls. Active at gym. - Diagnostic Test Results and Labs: - N/A Assessment Plan Assessment Plan (1) Postmenopausal: Code(s): Z78.0 - Asymptomatic menopausal state Category: Medical (2) Osteoporosis: Code(s): M81.0 - Age-related osteoporosis without current pathological fracture Category: Medical Plan: 1. Osteoporosis with history of 2 fragility fractures Assessment: - Established diagnosis Plan: a. Proceed with repeat Prolia injection today b. Schedule follow up in 6 months for bloodwork including vitamin D level, CMP, PTH . Psoriasis with recent color change Plan: a. Patient to take daily photographs of affected area to track changes b. Follow up with senior data modeler or PCP if worsens or no improvement c. Continue current psoriasis medication as prescribed General health and exercise Plan: - Encourage regular exercise and gym activities to maintain overall health and prevent falls Orders: Orders Prolia Injection Today M81.0 - Age-related osteoporosis without current pathological fracture Medications: New denosumab 60 mg subcut ONCE 1 mL 0RF M81.0 - Age-related osteoporosis without current pathological fracture Xray Readings Imaging Studies Recent Pertinent Imaging Studies: No Data to Display Vital Signs 02/28/24 10:17 02/28/24 10:18 Height 5 ft 2 in Weight (kg) 70.08 kg BMI 28.2 BP 98/66 L 98/66 L BP Location Right Brachial BP Position Sitting BP Cuff Size Adult BP Source Automatic Cuff Pulse 79 Pulse Source NIBP Temp 98.2 F Temp Source Temporal Artery Scan Intake Visit Reasons: Prolia, No PA needed Allergies Allergy/AdvReac Type Severity Reaction Status Date / Time oxycodone Allergy Severe Headache Verified 02/28/24 10:18 Iodinated Contrast Media Allergy Mild headache, Verified 02/28/24 10:18 burning skin Penicillins Allergy Mild Rash Verified 02/28/24 10:18 Quinolones Allergy Mild Rash Verified 02/28/24 10:18 moxifloxacin Allergy Unknown Unknown Verified 02/28/24 10:18 cephalexin AdvReac Intermediate Vomiting Verified 02/28/24 10:18 doxycycline AdvReac Intermediate TEARS UP Verified 02/28/24 10:18 STOMACH- CAUSES ALOT OF PAIN hydrocodone AdvReac Intermediate vomiting, Verified 02/28/24 10:18 headache nitrofurantoin (From AdvReac Intermediate Vomiting Verified 02/28/24 10:18 Macrobid) albuterol AdvReac Mild HEADACHE,NA Verified 02/28/24 10:18 USEA bee venom protein (honey bee) AdvReac Mild swelling, Verified 02/28/24 10:18 vomiting calcium AdvReac Mild GI upset Verified 02/28/24 10:18 fluconazole AdvReac Mild Headache Verified 02/28/24 10:18 Current Medication List - Last Reconciled 02/28/24 by Janna Marino alprazolam 0.25 mg tablet 0.25 mg PO BID PRN 30 days cholecalciferol (vitamin D3) 50 mcg (2,000 unit) capsule 50 mcg PO DAILY denosumab 60 mg/mL subcutaneous syringe (Prolia) 60 mg subcut [id number] fluticasone propionate 50 mcg/actuation nasal spray,suspension 1 spray Nostril-both DAILY loratadine 10 mg tablet 10 mg PO DAILY metoclopramide HCl 10 mg tablet (Reglan) 10 mg PO BID 2 weeks multivitamin 1 tab PO DAILY pantoprazole 40 mg tablet,delayed release 40 mg PO BID 90 days polyethylene gl (more content not included)... Normal [facility] Urine Cultureon 02-20-2024 Bacteria identified Cx Nom (U) Urine Culture ESCCOLEscherichia coliEscherichia coli CCColony Count >100,000 ENTFACEnterococcus faecalisEnterococcus faecalis CCColony Count >100,000 ORGANISM ID: 1.1 ANTIBIOTIC INTERPRETATION SIL STATUS S <=2 F S <=2 F S <=4 F S <=0.12 F - NEG F S <=1 F S <=0.25 F S 0.5 F S <=0.12 F S <=1 F S <=0.25 F S 1 F S <=16 F S <=20 F S <=4 F ORGANISM ID: 1.2 ANTIBIOTIC INTERPRETATION SIL STATUS S <=2 F S <=0.5 F R >=8 F S SYN-S F S 1 F S <=16 F S SYN-S F R >=16 F S <=0.5 F Normal [facility] Comment on above: Performed By: #### C M, CP1, LIP #### [facility] [address] [facility] [place] [address] ABrittni 02-17-2024 PITA [facility] [address] [facility] [place] [address] Office Visit Report Signed Patient Name: Sherry Ash [id number] Date of : 1945 Age/Sex: 78 / F Date of Service: Location: [facility] Primary [facility] Attending physician: Nicole Garcia DO Vital Signs 02/17/24 14:36 02/17/24 14:38 Height 5 ft 2 in Weight (kg) 154 lb BMI 28.1 BP 118/82 118/82 BP Location Right Brachial BP Position Sitting BP Cuff Size Adult BP Source Manual Cuff Respiration 18 Pulse 67 Pulse Source Monitor Temp 98.4 F Temp Source Temporal Artery Scan Pulse Oximetry (%) 95 Oxygen Delivery Method Room Air Intake Visit Reasons: Rt. shoulder pain Allergies Allergy/AdvReac Type Severity Reaction Status Date / Time oxycodone Allergy Severe Headache Verified 02/17/24 14:32 Iodinated Contrast Media Allergy Mild headache, Verified 02/17/24 14:32 burning skin Penicillins Allergy Mild Rash Verified 02/17/24 14:32 Quinolones Allergy Mild Rash Verified 02/17/24 14:32 moxifloxacin Allergy Unknown Unknown Verified 02/17/24 14:32 cephalexin AdvReac Intermediate Vomiting Verified 02/17/24 14:32 doxycycline AdvReac Intermediate TEARS UP Verified 02/17/24 14:32 STOMACH- CAUSES ALOT OF PAIN hydrocodone AdvReac Intermediate vomiting, Verified 02/17/24 14:32 headache nitrofurantoin (From AdvReac Intermediate Vomiting Verified 02/17/24 14:32 Macrobid) albuterol AdvReac Mild HEADACHE,NA Verified 02/17/24 14:32 USEA bee venom protein (honey bee) AdvReac Mild swelling, Verified 02/17/24 14:32 vomiting calcium AdvReac Mild GI upset Verified 02/17/24 14:32 fluconazole AdvReac Mild Headache Verified 02/17/24 14:32 Current Medication List - Last Reconciled 02/17/24 by Alma Rodriguez alprazolam 0.25 mg tablet 0.25 mg PO BID PRN 30 days cholecalciferol (vitamin D3) 50 mcg (2,000 unit) capsule 50 mcg PO DAILY denosumab 60 mg/mL subcutaneous syringe (Prolia) 60 mg subcut [id number] fluticasone propionate 50 mcg/actuation nasal spray,suspension 1 spray Nostril-both DAILY loratadine 10 mg tablet 10 mg PO DAILY multivitamin 1 tab PO DAILY pantoprazole 40 mg tablet,delayed release 40 mg PO BID 90 days polyethylene glycol 3350 17 gram oral powder packet (Miralax) 17 grams PO DAILY PRN rosuvastatin 40 mg tablet 40 mg PO DAILY 90 days sucralfate 1 gram tablet (Carafate) 1 GM PO Q6H PRN triamcinolone acetonide 0.1 % topical cream 1 applic topical BID PRN 2 weeks venlafaxine 37.5 mg capsule,extended release 24 hr 37.5 mg PO DAILY 90 days NS Nurse's Note: Pt here with c/o right shoulder pain, bloating, right flank pain. Pt thinks she has a UTI again. Pt had burning with urination 3-4 days ago. Pt took monostat and burning went away. [facility] Medical History Congenital ureteropelvic junction obstruction Granulomatous disease Hydronephrosis Chronic pain of left ankle Abnormal mammogram Breast cancer screening by mammogram HTN (hypertension), benign Dyslipidemia Mitral regurgitation Aortic heart murmur Nonspecific ST-T wave electrocardiographic changes Bilateral tinnitus Osteoporosis Fracture of left ankle Adult hypothyroidism Pancreatitis Pneumonia Constipation Gastritis Bronchitis Anxiety Back pain UPJ (ureteropelvic junction) obstruction Cataracts, bilateral Heart murmur Seasonal allergies GERD (gastroesophageal reflux disease) High cholesterol Surgical History Hx of cataract surgery History of appendectomy H/O bladder repair surgery Hx of cholecystectomy Hx of hysterectomy Family History Father No problems noted. Mother No problems noted. Social History Social History History Provided by: Patient Living Situation History Usual Living Arrangement: Alone Anyone at Home Need Help While Hospitalized: No Tobacco History Smoking Status: Former Smoker Years Smoked: 38 Packs Per Day: 1 Other Form of Tobacco Used: Never Used Second Hand Tobacco Smoke Exposure: No AUDIT-C How Often do you Have a Drink Containing Alcohol: Never How Many Standard Drinks Containing Alcohol do you Have on a Typical Day: None How Often do you Have Six or More Drinks on One Occasion: Never AUDIT-C Alcohol Total Score: 0 Substance Use History Caffeine Use: Yes Non-Prescribed Substance Use: Denies Use Has Patient Ever Been Admitted to Treatment Facility for Alcohol/Drug Abuse: No Abuse History of Physical Abuse: No History of Emotional Abuse: No History of Sexual Abuse: No Suspect/Identified Abuse: No Provider Notified of Abuse or Suspected Abuse: No HPI (more content not included)... Normal [facility] Bacterial urine cultureOrder ed By: Nicole Garcia on 02-17-2024 Bacteria identified Cx Nom (U) Escherichia coli Abnormal [facility] Bacteria identified Cx Nom (U) Enterococcus faecalis Abnormal [facility] Bacteria identified Cx Nom (U) Escherichia coli Abnormal [facility] Bacteria identified Cx Nom (U) Enterococcus faecalis Abnormal [facility] Laboratory - Chemistry and C hemistry - challengeon 02-17-2024 Bilirubin Ql (U) Negative [facility] Glucose Ql (U) Negative [facility] Ketones Ql (U) Negative [facility] pH (U) 6.5 [pH] [facility] Specific gravity (U) [Rel density] 1.025 [facility] Urobilinogen (U) [Mass/Vol] 1 mg/dL [facility] Laboratory - Specimen inform ationon 02-17-2024 Appearance (U) clear [facility] Color (U) Yellow [facility] Laboratory - Urinalysison Leukocyte esterase Test strip Ql (U) Large [facility] Nitrite Ql (U) Negative [facility] Protein Ql (U) Trace [facility] No Panel Informationon 02-16 Urine Occult Blood Negative [facility] RODRIGOVISon 01-24-2024 [facility] [address] [place] [id number] Office Visit Report Signed Patient Name: Sherry Ash [id number] Date of : 1945 Age/Sex: 78 / F Date of Service: Location: [facility] [place] Attending physician: Nicole Garcia DO Vital Signs 01/24/24 14:33 01/24/24 14:34 Height 5 ft 2 in Weight (kg) 153 lb 2 oz BMI 28.0 BP 116/78 116/78 BP Location Right Brachial BP Position Sitting BP Cuff Size Adult BP Source Manual Cuff Respiration 18 Pulse 64 Pulse Source Monitor Temp 98.7 F Temp Source Temporal Artery Scan Pulse Oximetry (%) 97 Oxygen Delivery Method Room Air Intake Visit Reasons: UC F/U; UTI Allergies Allergy/AdvReac Type Severity Reaction Status Date / Time oxycodone Allergy Severe Headache Verified 01/24/24 14:27 Iodinated Contrast Media Allergy Mild headache, Verified 01/24/24 14:27 burning skin Penicillins Allergy Mild Rash Verified 01/24/24 14:27 Quinolones Allergy Mild Rash Verified 01/24/24 14:27 moxifloxacin Allergy Unknown Unknown Verified 01/24/24 14:27 cephalexin AdvReac Intermediate Vomiting Verified 01/24/24 14:27 doxycycline AdvReac Intermediate TEARS UP Verified 01/24/24 14:27 STOMACH- CAUSES ALOT OF PAIN hydrocodone AdvReac Intermediate vomiting, Verified 01/24/24 14:27 headache nitrofurantoin (From AdvReac Intermediate Vomiting Verified 01/24/24 14:27 Macrobid) albuterol AdvReac Mild HEADACHE,NA Verified 01/24/24 14:27 USEA bee venom protein (honey bee) AdvReac Mild swelling, Verified 01/24/24 14:27 vomiting calcium AdvReac Mild GI upset Verified 01/24/24 14:27 fluconazole AdvReac Mild Headache Verified 01/24/24 14:27 Current Medication List - Last Reconciled 01/24/24 by Alma Rodriguez alprazolam 0.25 mg tablet 0.25 mg PO BID PRN 30 days cholecalciferol (vitamin D3) 50 mcg (2,000 unit) capsule 50 mcg PO DAILY denosumab 60 mg/mL subcutaneous syringe (Prolia) 60 mg subcut [id number] fluticasone propionate 50 mcg/actuation nasal spray,suspension 1 spray Nostril-both DAILY loratadine 10 mg tablet 10 mg PO DAILY pantoprazole 40 mg tablet,delayed release 40 mg PO BID 90 days polyethylene glycol 3350 17 gram oral powder packet (Miralax) 17 grams PO DAILY PRN rosuvastatin 40 mg tablet 40 mg PO DAILY 90 days sucralfate 1 gram tablet (Carafate) 1 GM PO Q6H PRN venlafaxine 37.5 mg capsule,extended release 24 hr 37.5 mg PO DAILY 90 days NS Nurse's Note: Pt here for f/u visit after being seen in ER on 01/16/24 for UTI. Pt prescribed Bactrim. Pt states the burning with urination is gone. Pt still has lower back pain, decreased evergy, and nausea. Pt is wondering if the venlaxafine will cause weight gain? She stopped taking this on 01/22/24 and started taking her old sertraline 100mg daily. Pt would like to discuss red spot on arms and legs. [facility] Medical History Congenital ureteropelvic junction obstruction Granulomatous disease Hydronephrosis Chronic pain of left ankle Abnormal mammogram Breast cancer screening by mammogram HTN (hypertension), benign Dyslipidemia Mitral regurgitation Aortic heart murmur Nonspecific ST-T wave electrocardiographic changes Bilateral tinnitus Osteoporosis Fracture of left ankle Adult hypothyroidism Pancreatitis Pneumonia Constipation Gastritis Bronchitis Anxiety Back pain UPJ (ureteropelvic junction) obstruction Cataracts, bilateral Heart murmur Seasonal allergies GERD (gastroesophageal reflux disease) High cholesterol Surgical History Hx of cataract surgery History of appendectomy H/O bladder repair surgery Hx of cholecystectomy Hx of hysterectomy Family History Father No problems noted. Mother No problems noted. Social History Social History History Provided by: Patient Living Situation History Usual Living Arrangement: Alone Anyone at Home Need Help While Hospitalized: No Tobacco History Smoking Status: Former Smoker Years Smoked: 38 Packs Per Day: 1 Other Form of Tobacco Used: Never Used Second Hand Tobacco Smoke Exposure: No AUDIT-C How Often do you Have a Drink Containing Alcohol: Never How Many Standard Drinks Containing Alcohol do you Have on a Typical Day: None How Often do you Have Six or More Drinks on One Occasion: Never AUDIT-C Alcohol Total Score: 0 Substance Use History Caffeine Use: Yes Non-Prescribed Substance Use: Denies Use Has Patient Ever Been Admitted to Treatment Facility for Alcohol/Drug Abuse: No Abuse History of Physical Abuse: No History of Emotional Abuse: No History of Sexual (more content not included)... Normal [facility] Laboratory - Chemistry and C hemistry - challengeon 01-24-2024 Bilirubin Ql (U) Negative [facility] Glucose Ql (U) Negative [facility] Ketones Ql (U) Negative [facility] pH (U) 5.5 [pH] [facility] Specific gravity (U) [Rel density] 1.005 [facility] Urobilinogen (U) [Mass/Vol] 0.2 mg/dL [facility] Laboratory - Specimen inform ationon 01-24-2024 Appearance (U) clear [facility] Color (U) Yellow [facility] Laboratory - Urinalysison Leukocyte esterase Test strip Ql (U) Trace [facility] Nitrite Ql (U) Negative [facility] Protein Ql (U) Negative [facility] No Panel Informationon 01-23 Urine Occult Blood Trace-nonhemolyzed [facility] Urine Cultureon 01-20-2024 Bacteria identified Cx Nom (U) Urine Culture ESCCOLEscherichia coliEscherichia coli CCColony Count >100,000 STRAGAStrep agalactiae - (group b)Strep agalactiae - (group b) CCColony Count 20,000 - 30,000 ORGANISM ID: 1.1 ANTIBIOTIC INTERPRETATION SIL STATUS S 8 F S <=2 F S <=4 F S <=0.12 F - NEG F S <=1 F S <=0.25 F S 0.5 F S <=0.12 F S <=1 F S <=0.25 F S 1 F S 32 F S <=20 F S <=4 F ORGANISM ID: 1.2 ANTIBIOTIC INTERPRETATION SIL STATUS S <=0.25 F S <=0.12 F S <=0.12 F R >=1 F - NEG F R >=8 F S 1 F S <=0.06 F R >=16 F S 0.5 F Normal [facility] Comment on above: Performed By: #### C M, CP1, LIP #### [facility] [address] [place] [address] ABDPELWOon 01-16-2024 ABDPELWO [facility] [address] [place] [address] CT Scan Report Signed Patient Name: Sherry Ash Date of : 1945 Account #:[id number] Age/Sex: 78 / F Location: ED Attending physician: Ordering Provider: Meena Dallas DO Date of Service: 01/16/24 Procedure(s): CT abd/pel wo con HISTORY: UTI symptoms. Abdominal distention. Time: 8:30 a.m. on 01/16/2024 Comparison: 04/12/2023 CT scan TECHNIQUE: Axial images were obtained from the dome of the diaphragm down to the symphysis pubis without oral or IV contrast. Coronal and sagittal reconstruction imaging was performed. Coronal MPR images were reconstructed from the 3D data set. Individualized dose optimization techniques were used for the CT scan. Findings: The lung bases are clear. The liver and spleen demonstrate splenic calcifications consistent with prior granulomatous disease exposure. There are also a few liver calcifications consistent with the same. Been prior cholecystectomy There are heavy vascular calcifications. Changes of chronic UPJ stenosis suggested with moderately severe bilateral hydronephrosis with marked renal pelves dilatation with abrupt transition to a normal caliber ureters at the level of the UPJ bilaterally. Urinary bladder is relatively decompressed but appears grossly unremarkable. No obstructing ureteral stones. There is descending and sigmoid colonic diverticulosis without CT evidence for diverticulitis No free air or free fluid in the abdomen/pelvis or retroperitoneum. No acute bony abnormalities No CT findings of acute appendicitis Impression: Redemonstration of CT findings compatible with chronic bilateral UPJ stenoses. No significant interval change from the 2022 examination. There is redemonstration of a calcification in the right renal hilum, unchanged from 2023, likely vascular in there is suggestion of a punctate upper pole right renal stone versus vascular calcification. As above, no ureteral stones. Heavy vascular calcifications Redemonstration of descending and sigmoid colonic diverticulosis without CT evidence for diverticulitis. Sequelae of prior granulomatous disease exposure. Post cholecystectomy changes. 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 Y Exam Explained to Patient/Family? Y Was Patient Shielded? N Is Patient ? Consent Form Completed? Hx Last Menstrual Period: Does Patient have a Diabetic Device? No Diabetic Device Type: Was the Diabetic Device Removed? If NO: was Removal Consent form completed? Patient was informed of radiation exposure prior to scan? Verified by Technologist:[id number] Comment: [id number] cc: Meena Dallas, DO Nicole Garcia, DO Normal [facility] Absolute eosinophil countOrd ered By: Meena Dallas on 01-16-2024 Histamine release from basophils measurement Histamine release from basophils measurement 0.0-0.4 [facility] Histamine release from basophils measurement 0.0 10'3/uL 0.0-0.4 [facility] Alanine aminotransferase (AL T) measurementOrdered By: Meena Dallas on 01-16-2024 ALT [Catalytic activity/Vol] 16 U/L 0-55 [facility] AST [Catalytic activity/Vol] 22 U/L 5-34 [facility] AlbuminOrdered By: Meena Dallas on 01-16-2024 Albumin [Mass/Vol] 4.2 g/dL 3.2-4.6 [facility] Thin prep Papanicolaou smear with manual screening Thin prep Papanicolaou smear with manual screening 3.2-4.6 [facility] Alkaline phosphataseOrdered By: Meena Dallas on 01-16-2024 ALP [Catalytic activity/Vol] 55 U/L 40-150 [facility] Automated absolute lymphocyt e countOrdered By: Meena Dallas on 01-16-2024 Lymphocytes # (Auto) 1.2 10'3/uL 0.5-3.5 [facility] Automated absolute neutrophi l countOrdered By: Meena Dallas on 01-16-2024 Absolute Neutrophil 8.9 10'3/uL High 1.5-5.6 [facility] BUN venousOrdered By: Yuan Dallas on 01-16-2024 Urea nitrogen (BldV) [Mass/Vol] BUN venous High 12-15 [facility] Urea nitrogen (BldV) [Mass/Vol] 21 mg/dL High 12-15 [facility] Bacterial urine cultureOrder ed By: Meena Dallas on 01-16-2024 Bacteria identified Cx Nom (U) Escherichia coli Abnormal [facility] Bacteria identified Cx Nom (U) Strep agalactiae - (group b) Abnormal [facility] Bacteria identified Cx Nom (U) Escherichia coli Abnormal [facility] Bacteria identified Cx Nom (U) Strep agalactiae - (group b) Abnormal [facility] Basophils Auto (Bld) [#/Vol] Ordered By: Meena Dallas on 01-16-2024 Basophils (Bld) [#/Vol] Automated basophil count Low 0.1-0.2 [facility] Basophils (Bld) [#/Vol] 0.0 10'3/uL Low 0.1-0.2 [facility] Basophils/100 WBC Auto (Bld) Ordered By: Meena Dallas on 01-16-2024 Basophils/100 WBC (Bld) Automated basophil % 0-1 [facility] Basophils/100 WBC (Bld) 0 % 0-1 [facility] Blood anion gapOrdered By: Orlin Dallas on 01-16-2024 Anion gap (Bld) [Moles/Vol] Blood anion gap - [facility] Anion gap (Bld) [Moles/Vol] 10 mmol/L - [facility] Blood erythrocytes count (nu mber/volume)Ordered By: Meena Dallas on 01-16-2024 RBC (Bld) [#/Vol] Blood erythrocytes c ount (number/volume) 3.85-4.88 [facility] RBC (Bld) [#/Vol] 4.18 10'6/uL 3.85-4.88 [facility] Blood platelets count (numbe r/volume)Ordered By: Meena Dallas on 01-16-2024 Platelets (Bld) [#/Vol] Platelet count blood 122-359 [facility] Platelets (Bld) [#/Vol] 129 10'3/uL 122-359 [facility] Calcium measurement (mass/vo lume)Ordered By: Meena Dallas on 01-16-2024 Calcium (Unsp spec) [Mass/Vol] Calcium measurement (mass/volume) 8.4-10.2 [facility] Calcium (Unsp spec) [Mass/Vol] 9.2 mg/dL 8.4-10.2 [facility] Complete Blood Count with Di ffon 01-16-2024 Hemoglobin (Bld) [Mass/Vol] 12.5 g/dL Normal 11.7-14.9 [facility] Comment on above: Performed By: #### Samina Manning CP1, LIP #### [facility] [address] [place] [address] Basophils Absolute Auto 0.0 10'3/uL Low 0.1-0.2 [facility] Comment on above: Performed By: #### Samina Manning CP1, LIP #### [facility] [address] [place] [address] Basophils/100 WBC (Bld) 0 % Normal 0-1 [facility] Comment on above: Performed By: #### Samina Manning CP1, LIP #### [facility] [address] [place] [address] Eosinophils Absolute Auto 0.0 10'3/uL Normal 0.0-0.4 [facility] Comment on above: Performed By: #### Samina Manning, CP1, LIP #### [facility] [address] [place] [address] Eosinophils/100 WBC (Bld) 0 % Low 2-5 [facility] Comment on above: Performed By: #### Samina Manning CP1, LIP #### [place] [address] [place] [address] Erythrocyte distribution width (RBC) [Ratio] 13.2 % Normal 12.2-15.8 [facility] Comment on above: Performed By: #### Samina Manning CP1, LIP #### [place] [place] [address] Hematocrit (Bld) [Volume fraction] 36.5 % Normal 34.6-44.1 [facility] Comment on above: Performed By: #### IBRAHIMA Cesar, LIP #### [place] [place] [address] Lymphocytes Absolute Auto 1.2 10'3/uL Normal 0.5-3.5 [facility] Comment on above: Performed By: #### IBRAHIMA Cesar, LIP #### [address] [address] Lymphocytes/100 WBC (Bld) 11 % Low 20-35 [facility] Comment on above: Performed By: #### IBRAHIMA Cesar, LIP #### [place] [place] [address] MCH (RBC) [Entitic mass] 29.9 pg Normal 27.8-33.2 [facility] Comment on above: Performed By: #### Samina Manning CP1, LIP #### [place] [place] [address] MCV (RBC) [Entitic vol] 87.3 fL Normal 83.0-97.4 [facility] Comment on above: Performed By: #### IBRAHIMA Cesar, LIP #### [place] [place] [address] Mean Corpuscular HGB Conc 34.2 g/dL Normal 32.7-34.8 [facility] Comment on above: Performed By: #### Samina Manning CP1, LIP #### [place] [facility] [address] [place] [address] Monocytes Absolute Auto 0.6 10'3/uL Normal 0.2-0.8 [facility] Comment on above: Performed By: #### Samina Manning CP1, LIP #### [facility] [address] [place] [address] Monocytes/100 WBC (Bld) 5 % Normal 4-12 [facility] Comment on above: Performed By: #### Samina Manning CP1, LIP #### [facility] [address] [place] [address] Neutrophil # 8.9 10'3/uL High 1.5-5.6 [facility] Comment on above: Performed By: #### Samina Manning CP1, LIP #### [facility] [address] [place] [address] Neutrophils/100 WBC (Bld) 84 % High 41-72 [facility] Comment on above: Performed By: #### Samina Manning CP1, LIP #### [facility] [address] [place] [address] Platelet Count 129 10'3/uL Normal 122-359 [facility] Comment on above: Performed By: #### Samina Manning CP1, LIP #### [facility] [address] [place] [address] Platelet mean volume (Bld) [Entitic vol] 10.1 fL Normal 7.6-10.6 [facility] Comment on above: Performed By: #### Samina Manning CP1, LIP #### [facility] [address] [place] [address] Red Blood Count 4.18 10'6/uL Normal 3.85-4.88 [facility] Comment on above: Performed By: #### Samina Manning CP1, LIP #### [facility] [address] [place] [address] White Blood Count 10.7 10'3/uL High 3.2-9.3 [facility] Comment on above: Performed By: #### C M, CP1, LIP #### [facility] [address] [place] [address] Comprehensive Metabolic Pane florence 01-16-2024 Albumin [Mass/Vol] 4.2 g/dL Normal 3.2-4.6 [facility] Comment on above: Performed By: #### Samina Manning, CP1, LIP #### [facility] [address] [place] [address] ALP [Catalytic activity/Vol] 55 U/L Normal 40-150 [facility] Comment on above: Performed By: #### Samina Manning, CP1, LIP #### [facility] [address] [place] [address] ALT [Catalytic activity/Vol] 16 U/L Normal 0-55 [facility] Comment on above: Performed By: #### Samina Manning, CP1, LIP #### [facility] [address] [place] [address] Anion gap [Moles/Vol] 10 mmol/L Normal 5-13 [facility] Comment on above: Performed By: #### Samina Manning, CP1, LIP #### [facility] [address] [place] [address] AST [Catalytic activity/Vol] 22 U/L Normal 5-34 [facility] Comment on above: Performed By: #### Samina Manning, CP1, LIP #### [facility] [address] [place] [address] Bilirubin [Mass/Vol] 0.8 mg/dL Normal 0.0-1.0 [facility] Comment on above: Performed By: #### Samina Manning, CP1, LIP #### [facility] [address] [place] [address] Calcium [Mass/Vol] 9.2 mg/dL Normal 8.4-10.2 [facility] Comment on above: Performed By: #### Samina Manning, CP1, LIP #### [facility] [address] [place] [address] Chloride [Moles/Vol] 106 mmol/L Normal 98-107 [facility] Comment on above: Performed By: #### Samina Manning, CP1, LIP #### [facility] [address] [place] [address] CO2 [Moles/Vol] 23 mmol/L Normal 23-31 [facility] Comment on above: Performed By: #### Samina Manning, CP1, LIP #### [facility] [address] [place] [address] Creatinine [Mass/Vol] 0.94 mg/dL Normal 0.57-1.11 [facility] Comment on above: Performed By: #### Samina Manning CP1, LIP #### [facility] [address] [place] [address] GFR/1.73 sq M.predicted among non-blacks MDRD (S/P/Bld) [Vol rate/Area] mL/min/{1.73_m2} Normal mL/min/1.7 3m2 [facility] Comment on above: Performed By: #### Samina Manning, CP1, LIP #### [facility] [address] [facility] [place] [address] Glucose [Mass/Vol] 119 mg/dL High 70-100 [facility] Comment on above: Performed By: #### Samina Manning, CP1, LIP #### [facility] [address] [facility] [address] Potassium [Moles/Vol] 4.3 mmol/L Normal 3.5-5.1 [facility] Comment on above: Performed By: #### Samina Manning, CP1, LIP #### [facility] [address] [place] [address] Protein [Mass/Vol] 6.7 g/dL Normal 6.4-8.2 [facility] Comment on above: Performed By: #### Samina Manning, CP1, LIP #### [facility] [address] [place] [address] Sodium [Moles/Vol] 139 mmol/L Normal 136-145 [facility] Comment on above: Performed By: #### Samina Manning CP1, LIP #### [facility] [address] [place] [address] Urea nitrogen [Mass/Vol] 21 mg/dL High - [facility] Comment on above: Performed By: #### Samina Manning CP1, LIP #### [facility] [address] [place] [address] Creatinine (Bld) [Mass/Vol]O rdered By: Meena Dallas on 01-16-2024 Creatinine [Mass/Vol] Blood creatinine measurement (mass/volume) 0.57-1.11 [facility] Creatinine [Mass/Vol] 0.94 mg/dL 0.57-1.11 [facility] EDon 01-16-2024 ED [facility] [address] [facility] [place] [address] Emergency Department Note Signed Patient Name: Sherry Ash Medical Rec ord #: [id number] Date of : 1945 Account #: [id number] Age/Sex: 78 / F Location: ED Attending physician: HPI - General Adult General Date of Visit: 01/16/24 Chief complaint: Urogenital-Female Time Seen by Provider: 01/16/24 07:32 History of Present Illness HPI narrative: The patient is a 78 year old who presented to the Emergency Department with the complaint of Urogenital-Female. Patient states starting last evening she developed some lower abdominal pain. Describes as a pressure. States she is having to urinate quite frequently. States every time she urinates she is only able to get a very small amount out. Denies any dysuria. Now having some discomfort around her urethra from having to wipe herself so much after urinating. Denies any fevers or chills. No flank pain. No nausea or vomiting. Patient states she has had UTIs in the past however this does not feel like a typical UTI for her. No known sick contacts. Has not yet tried anything at home for her symptoms. Mode of Arrival: Ambulatory Home Meds and Allergies Home Medications Medication Instructions Recorded Confirmed Type cholecalciferol (vitamin D3) 50 50 mcg PO DAILY 12/26/20 12/03/23 History mcg (2,000 unit) capsule loratadine 10 mg tablet 10 mg PO DAILY 08/24/22 12/03/23 History sucralfate 1 gram tablet (Carafate) 1 gm PO Q6H PRN 05/14/23 12/03/23 History venlafaxine 37.5 mg 37.5 mg PO DAILY 90 days #90 caps 07/14/23 12/03/23 Rx capsule,extended release 24 hr fluticasone propionate 50 1 spray Nostril-both DAILY #32 08/13/23 12/03/23 Rx mcg/actuation nasal grams spray,suspension denosumab 60 mg/mL subcutaneous 60 mg subcut [id number] 08/26/23 12/03/23 History syringe (Prolia) rosuvastatin 40 mg tablet 40 mg PO DAILY 90 days #90 tabs 11/10/23 12/03/23 Rx alprazolam 0.25 mg tablet 0.25 mg PO BID PRN anxiety 30 days 11/17/23 12/03/23 Rx #60 tabs polyethylene glycol 3350 17 gram 17 gm PO DAILY PRN 11/17/23 12/03/23 History oral powder packet (Miralax) fluconazole 150 mg tablet 150 mg PO Q3D 2 doses #2 tabs 12/03/23 12/03/23 Rx nystatin 100,000 unit/gram topical 1 applic topical BID 30 days #30 12/03/23 Rx powder grams sulfamethoxazole 800 1 tab PO BID 3 days #6 tabs 12/03/23 12/03/23 Rx mg-trimethoprim 160 mg tablet (Bactrim DS) pantoprazole 40 mg tablet,delayed 40 mg PO BID 90 days #180 tabs 12/22/23 Rx release sulfamethoxazole 800 1 tab PO BID #7 tabs 01/16/24 Rx mg-trimethoprim 160 mg tablet (Bactrim DS) Allergies Allergy/AdvReac Type Severity Reaction Status Date / Time oxycodone Allergy Severe Headache Verified 11/17/23 14:46 Iodinated Contrast Media Allergy Mild headache, Verified 11/17/23 14:46 burning skin Penicillins Allergy Mild Rash Verified 11/17/23 14:46 Quinolones Allergy Mild Rash Verified 11/17/23 14:46 moxifloxacin Allergy Unknown Unknown Verified 11/17/23 14:46 cephalexin AdvReac Intermediate Vomiting Verified 12/03/23 11:06 doxycycline AdvReac Intermediate TEARS UP Verified 11/17/23 14:46 STOMACH- CAUSES ALOT OF PAIN hydrocodone AdvReac Intermediate vomiting, Verified 11/17/23 14:46 headache nitrofurantoin AdvReac Intermediate Vomiting Verified 11/17/23 14:46 [From Macrobid] albuterol AdvReac Mild HEADACHE,NA Verified 11/17/23 14:46 USEA bee venom protein (honey bee) AdvReac Mild swelling, Verified 11/17/23 14:46 vomiting calcium AdvReac Mild GI upset Verified 11/17/23 14:46 fluconazole AdvReac Mild Headache Verified 11/17/23 14:46 Review of Systems Constitutional: Denies: fever(s) or chills Ears, Nose, Mouth, Throat: Denies: neck pain Cardiovascular: Denies: chest pain or dyspnea Respiratory: Denies: dyspnea Gastrointestinal: Reports: abdominal pain; Denies: nausea or vomiting Genitourinary: Reports: urinary frequency and urinary urgency; Denies: hematuria Musculoskeletal: Denies: back pain or neck pain History PFSH Medical History Congenital ureteropelvic junction obstruction Granulomatous disease Hydronephrosis Chronic pain of left ankle Abnormal mammogram Breast cancer screening by mammogram HTN (hypertension), benign Dyslipidemia Mitral regurgitation Aortic heart murmur Nonspecific ST-T wave electrocardiographic changes Bilateral tinnitus Osteoporosis Fracture of left ankle Adult hypothyroidism Pancreatitis Pneumonia Constipation Gastritis Bronchitis Anxiety Back pain UPJ (ureteropelvic junction) obstruction Cataracts, bilateral Heart murmur Seasonal allergies GERD (gastroesophageal reflux disease) High cholesterol Surgical Hi (more content not included)... Normal [facility] Eosinophils/100 WBC Auto (Bl d)Ordered By: Meena Dallas on 01-16-2024 Eosinophils/100 WBC (Bld) Eosinophil percentage, automated Low 2-5 [facility] Eosinophils/100 WBC (Bld) 0 % Low 2-5 [facility] Estimated glomerular filtrat ion rate (GFR) determinationOrdered By: Meena Dallas on 01-16-2024 GFR/1.73 sq M.predicted among non-blacks MDRD (S/P/Bld) [Vol rate/Area] mL/min/{1.73_m2} mL/min/1.7 3m2 [facility] Hematocrit Auto (Bld) [Volum e fraction]Ordered By: Meena Dallas on 01-16-2024 Hematocrit (Bld) [Volume fraction] Automated blood hematocrit (percentage) 34.6-44.1 [facility] Hematocrit (Bld) [Volume fraction] 36.5 % 34.6-44.1 [facility] Laboratory - UrinalysisOrder ed By: Meena Dallas on 01-16-2024 Bacteria LM.HPF (Urine sed) [#/Area] 4 /[HPF] High 0 [facility] Leukocyte esterase Test strip Ql (U) Large High Negative [facility] Lipaseon 01-16-2024 Lipase [Catalytic activity/Vol] 28 U/L Normal [facility] Comment on above: Performed By: #### C M, CP1, LIP #### [facility] [address] [place] [address] Lipase measurementOrdered By : Meena Dallas on 01-16-2024 Lipase [Catalytic activity/Vol] 28 U/L [facility] Lymphocyte percentage, autom atedOrdered By: Meean Dallas on 01-16-2024 Lymphocytes/100 WBC (Bld) 11 % Low 20-35 [facility] MCV (mean corpuscular volume ) determinationOrdered By: Meena Dallas on 01-16-2024 MCV (RBC) [Entitic vol] Determination of erythrocyte mean corpuscular volume (MCV) 83.0-97.4 [facility] MCV (RBC) [Entitic vol] 87.3 fL 83.0-97.4 [facility] Mean corpuscular hemoglobin (MCH) determinationOrdered By: Meena Dallas on 01-16-2024 MCH (RBC) [Entitic mass] 29.9 pg 27.8-33.2 [facility] Mean corpuscular hemoglobin concentration (MCHC) determinationOrdered By: Meena Dallas on 01-16-2024 MCHC (RBC) [Mass/Vol] 34.2 g/dL 32.7-34.8 [facility] Monocytes Auto (Bld) [#/Vol] Ordered By: Meena Dallas on 01-16-2024 Monocytes (Bld) [#/Vol] Automated blood monocyte count 0.2-0.8 [facility] Monocytes (Bld) [#/Vol] 0.6 10'3/uL 0.2-0.8 [facility] Monocytes/100 WBC Auto (Bld) Ordered By: Meena Dallas on 01-16-2024 Monocytes/100 WBC (Bld) Monocyte percentage, automated 4-12 [facility] Monocytes/100 WBC (Bld) 5 % 4-12 [facility] MpvOrdered By: Meena ulloa on 01-16-2024 Platelet mean volume (Bld) [Entitic vol] 10.1 fL 7.6-10.6 [facility] Neutrophils/100 WBC Manual c nt (Bld)Ordered By: Meena Dallas on 01-16-2024 Neutrophils/100 WBC (Bld) Manual blood neutrophil count as percentage of leukocytes High 41-72 [facility] Neutrophils/100 WBC (Bld) 84 % High 41-72 [facility] Occult blood ur QLOrdered By : Meena Dallas on 01-16-2024 Hemoglobin Ql (U) Occult blood ur QL Abnormal Negative [facility] Hemoglobin Ql (U) Large (3+) Abnormal Negative [facility] RDWOrdered By: Meena ulloa on 01-16-2024 Erythrocyte distribution width (RBC) [Ratio] 13.2 % 12.2-15.8 [facility] Serum or plasma bilirubin me asurement (mass/volume)Ordered By: Meena Dallas on 01-16-2024 Bilirubin [Mass/Vol] Serum or plasma yaakov irubin measurement (mass/volume) 0.0-1.0 [facility] Bilirubin [Mass/Vol] 0.8 mg/dL 0.0-1.0 [facility] Serum or plasma carbon dioxi de measurement (moles/volume)Ordered By: Meena Dallas on 01-16-2024 CO2 [Moles/Vol] Serum or plasma tota l carbon dioxide measurement (moles/volume) [facility] CO2 [Moles/Vol] 23 mmol/L [facility] Serum or plasma chloride thom surement (moles/volume)Ordered By: Meena Dallas on 01-16-2024 Chloride [Moles/Vol] Serum or plasma chl oride measurement (moles/volume) 98-107 [facility] Chloride [Moles/Vol] 106 mmol/L 98-107 [facility] Serum or plasma glucose eileen urement (mass/volume)Ordered By: Meena Dallas on 01-16-2024 Glucose [Mass/Vol] Serum glucose measur ement (mass/volume) High 70-100 [facility] Glucose [Mass/Vol] 119 mg/dL High 70-100 [facility] Serum or plasma potassium me asurement (moles/volume)Ordered By: Meena Dallas on 01-16-2024 Potassium [Moles/Vol] Serum or plasma po tassium measurement (moles/volume) 3.5-5.1 [facility] Potassium [Moles/Vol] 4.3 mmol/L 3.5-5.1 [facility] Specific gravity Test strip (U) [Rel density]Ordered By: Meena Dallas on 01-16-2024 Specific gravity (U) [Rel density] Specific gravity ur dipstick 1.005-1.03 0 [facility] Specific gravity (U) [Rel density] 1.025 1.005-1.03 0 [facility] Total protein bloodOrdered B y: Meena Dallas on 01-16-2024 Protein [Mass/Vol] Serum total protein measurement (mass/volume) 6.4-8.2 [facility] Protein [Mass/Vol] 6.7 g/dL 6.4-8.2 [facility] UA with Reflex Cultureon Bacteria Urine 4+ /hpf Abnormal 0 [facility] Comment on above: Performed By: #### IBRAHIMA Cesar, LIP #### [facility] [address] [place] [address] WBC LM.HPF (Urine sed) [#/Area] /[HPF] Abnormal 0 [facility] Comment on above: Performed By: #### Samina Manning CP1, LIP #### [facility] [address] [place] [address] Appearance (U) CLOUDY Normal CLEAR [facility] Comment on above: Performed By: #### Samina Manning, CP1, LIP #### [facility] [address] [place] [address] Bilirubin Urine Negative Normal Negative [facility] Comment on above: Performed By: #### C Nigel, CP1, LIP #### [facility] [address] [place] [address] Color (U) YELLOW Normal YELLOW [facility] Comment on above: Performed By: #### Samina Manning, CP1, LIP #### [facility] [address] [place] [address] Glucose Urine UA Negative Normal Negative [facility] Comment on above: Performed By: #### Samina Manning, CP1, LIP #### [facility] [address] [place] [address] Ketones Ql (U) Negative Normal Negative [facility] Comment on above: Performed By: #### Samina Manning, CP1, LIP #### [facility] [address] [place] [address] Leukocyte esterase Test strip Ql (U) LARGE Abnormal Negative [facility] Comment on above: Performed By: #### Samina Manning, CP1, LIP #### [facility] [address] [place] [address] Nitrite Urine Positive Abnormal NEGATIVE [facility] Comment on above: Performed By: #### Samina Manning, CP1, LIP #### [facility] [address] [place] [address] Occult Blood Urine Large (3+) Abnormal Negative [facility] Comment on above: Performed By: #### Samina Manning, CP1, LIP #### [facility] [address] [place] [address] pH (U) 7.0 [pH] Normal 5.5-8.0 [facility] Comment on above: Performed By: #### Samina Manning, CP1, LIP #### [facility] [address] [place] [address] Protein Urine (Multistix) 100 (2+) Abnormal Negative [facility] Comment on above: Performed By: #### Samina Manning, CP1, LIP #### [facility] [address] [place] [address] Specific [place] Urine 1.025 Normal 1.005 -1.03 0 [facility] Comment on above: Performed By: #### Samina Manning CP1, LIP #### [facility] [address] [place] [address] Urobilinogen Urine 1.0 EU/dL Normal 0.2-1.0 [facility] Comment on above: Performed By: #### Samina Manning CP1, LIP #### [place] [id number] [place] [address] Urine appearance determinati onOrdered By: Meena Dallas on 01-16-2024 Appearance (U) Urine appearance CLEAR [facility] Appearance (U) Cloudy CLEAR [facility] Urine bilirubin measurementO rdered By: Meena Dallas on 01-16-2024 Bilirubin Ql (U) Negative Negative [facility] Urine color determinationOrd ered By: Meena Dallas on 01-16-2024 Color (U) Urine color YELLOW [facility] Color (U) Yellow YELLOW [facility] Urine glucose detection by a utomated test stripOrdered By: Meena Dallas on 01-16-2024 Glucose Auto test strip Ql (U) Urine glucose detection by automated test strip Negative [facility] Glucose Auto test strip Ql (U) Negative Negative [facility] Urine ketones measurementOrd ered By: Meena Dallas on 01-16-2024 Ketones Ql (U) Negative Negative [facility] Urine microscopic examinatio n for leukocytesOrdered By: Meena Dallas on 01-16-2024 Urine Microscopic WBC >100 /hpf High 0 [facility] Urine nitrite detection by a utomated test stripOrdered By: Meena Dallas on 01-16-2024 Nitrite Auto test strip Ql (U) Urine nitrite detection by automated test strip High NEGATIVE [facility] Nitrite Auto test strip Ql (U) Positive High NEGATIVE [facility] Urine pH measurementOrdered By: Meena Dallas on 01-16-2024 pH (U) pH of Urine 5.5-8.0 [facility] pH (U) 7.0 [pH] 5.5-8.0 [facility] Urine protein measurementOrd ered By: Meena Dallas on 01-16-2024 Protein Ql (U) 100 (2+) mg/dL Abnormal Negative [facility] Urine urobilinogen measureme ntOrdered By: Meena Dallas on 01-16-2024 Urobilinogen Ql (U) Urine urobilinogen measurement 0.2-1.0 [facility] Urobilinogen Ql (U) 1.0 EU/dL 0.2-1.0 [facility] Venous blood sodium measurem entOrdered By: Meena Dallas on 01-16-2024 Sodium (BldV) [Moles/Vol] Venous blood sodium measurement 136-145 [facility] Sodium (BldV) [Moles/Vol] 139 mmol/L 136-145 [facility] WBC totalOrdered By: Pierre Dallas on 01-16-2024 White Blood Count 10.7 10'3/uL High 3.2-9.3 [facility] Whole blood hemoglobin measu rement (mass/volume)Ordered By: Meena Dallas on 01-16-2024 Hemoglobin (Bld) [Mass/Vol] Blood hemoglobin measurement (mass/volume) 11.7-14.9 [facility] Comment on above: Delta: 10.5 on 04/12 Hemoglobin (Bld) [Mass/Vol] 12.5 g/dL 11.7-14.9 [facility] Comment on above: Delta: 10.5 on 04/12 Urine Cultureon 12-05-2023 Bacteria identified Cx Nom (U) Urine Culture RESResult: NGNo growth present Normal [facility] Comment on above: Performed By: #### C M, CP1, LIP #### [facility] [address] [place] [address] Colin 12-03-2023 [facility] [address] [place] [address] Office Visit Report Signed with Lucas Patient Name: Sherry Ash [id number] Date of : 1945 Age/Sex: 77 / F Date of Service: Location: [facility] [place] Attending physician: Nicole Garcia DO ADDENDUM: Physical Exam Narrative Vital signs, click to edit/add: Vital Signs - 24 hr 12/03/23 11:07 12/03/23 11:12 12/03/23 11:13 Temperature 98.4 F Pulse Rate 80 Respiratory Rate 20 Blood Pressure 84/56 L 158/76 H 90/60 L Pulse Oximetry 94 L 12/03/23 11:54 Temperature Pulse Rate Respiratory Rate Blood Pressure 90/60 L Pulse Oximetry Assessment and Plan with Goals Assessment Plan (1) Chronic right-sided low back pain with right-sided sciatica: Code(s): M54.41 - Lumbago with sciatica, right side; G89.29 - Other chronic pain Category: Medical Orders: Orders Urine Culture Today M54.41 - Lumbago with sciatica, right side, N39.0 - Urinary tract infection, site not specified AM.Urinalysis Today M54.41 - Lumbago with sciatica, right side, N39.0 - Urinary tract infection, site not specified Medications: New sulfamethoxazole-trimethop rim 800-160 mg (Bactrim DS) 1 tab PO BID 3 days 6 tabs 0RF N39.0 - Urinary tract infection, site not specified fluconazole may repeat second dose 72 hrs after first dose if symptoms persist 150 mg PO Q3D 2 tabs 0RF B37.31 - Acute candidiasis of vulva and vagina Office Procedure Procedure Completed?: Yes Details: UA dip Glucose: negative, Bilirubin: negative Ketones: negative Specific [place]: 1.015 Blood trace- lysed pH 6.5 Protein 100 Urobil 1.0 Nitrates negative Leuk small Addendum Dictated By: Sheree Ellison 12/03/23 1258 Addendum Signed By: 12/03/23 1619 Vital Signs 12/03/23 11:00 12/03/23 11:07 12/03/23 11:12 12/03/23 11:13 12/03/23 11:54 Height 5 ft 2 in 5 ft 2 in Weight (kg) 150 lb 4 oz BMI 27.4 BP 84/56 L 158/76 H 90/60 L 90/60 L BP Location Right Brachial Left Brachial Right Brachial BP Position Sitting Sitting Sitting BP Cuff Size Small Adult Small Adult Small Adult BP Source Manual Cuff Manual Cuff Manual Cuff Respiration 20 Pulse 80 Pulse Source Palpation Temp 98.4 F Temp Source Temporal Artery Scan Pulse Oximetry (%) 94 L Oxygen Delivery Method Room Air Intake Visit Reasons: Poss. yeast inf. bladder or kidney infection Prick Stitcher Required: No Accompanied by: Self / Same As Patient Allergies Allergy/AdvReac Type Severity Reaction Status Date / Time oxycodone Allergy Severe Headache Verified 11/17/23 14:46 Iodinated Contrast Media Allergy Mild headache, Verified 11/17/23 14:46 burning skin Penicillins Allergy Mild Rash Verified 11/17/23 14:46 Quinolones Allergy Mild Rash Verified 11/17/23 14:46 moxifloxacin Allergy Unknown Unknown Verified 11/17/23 14:46 cephalexin AdvReac Intermediate Vomiting Verified 12/03/23 11:06 doxycycline AdvReac Intermediate TEARS UP Verified 11/17/23 14:46 STOMACH- CAUSES ALOT OF PAIN hydrocodone AdvReac Intermediate vomiting, Verified 11/17/23 14:46 headache nitrofurantoin AdvReac Intermediate Vomiting Verified 11/17/23 14:46 [From Macrobid] albuterol AdvReac Mild HEADACHE,NA Verified 11/17/23 14:46 USEA bee venom protein (honey bee) AdvReac Mild swelling, Verified 11/17/23 14:46 vomiting calcium AdvReac Mild GI upset Verified 11/17/23 14:46 fluconazole AdvReac Mild Headache Verified 11/17/23 14:46 Current Medication List - Last Reconciled 12/03/23 by Sheree Ellison alprazolam 0.25 mg tablet 0.25 mg PO BID PRN 30 days cholecalciferol (vitamin D3) 50 mcg (2,000 unit) capsule 50 mcg PO DAILY denosumab 60 mg/mL subcutaneous syringe (Prolia) 60 mg subcut [id number] fluticasone propionate 50 mcg/actuation nasal spray,suspension 1 spray Nostril-both DAILY loratadine 10 mg tablet 10 mg PO DAILY nystatin 100,000 unit/gram topical powder 1 applic topical BID 30 days pantoprazole 40 mg tablet,delayed release 40 mg PO BID polyethylene glycol 3350 17 gram oral powder packet (Miralax) 17 grams PO DAILY PRN rosuvastatin 40 mg tablet 40 mg PO DAILY 90 days sucralfate 1 gram tablet (Carafate) 1 GM PO Q6H PRN venlafaxine 37.5 mg capsule,extended release 24 hr 37.5 mg PO DAILY 90 days NS Is patient having pain: Yes Nurse's Note: Patient c/o burning and itching with urination x 2 days. She also c/o LBP 9/10 especially with sitting. [facility] Medical History Congenital ureteropelvic junction obstruction Granulomatous disease Hydronephrosis Chronic pain of left ankle Abnormal mammogram Breast cancer screening by mammogram (more content not included)... Normal [facility] Bacterial urine cultureOrder ed By: Nicole Garcia on 12-03-2023 Bacteria identified Cx Nom (U) Bacterial urine culture [facility] Bacteria identified Cx Nom (U) [facility] PITAon 11-17-2023 [facility] [address] [place], [place] [id number] Office Visit Report Signed Patient Name: Sherry Ash [id number] Date of : 1945 Age/Sex: 77 / F Date of Service: Location: [facility] [place] Attending physician: Nicole Garcia DO Vital Signs 11/17/23 14:56 11/17/23 14:56 Height 5 ft 2 in Weight (kg) 148 lb 8 oz BMI 27.1 BP 104/68 104/68 BP Location Right Brachial BP Position Sitting BP Cuff Size Adult BP Source Manual Cuff Respiration 18 Pulse 70 Pulse Source Monitor Temp 98.4 F Temp Source Temporal Artery Scan Pulse Oximetry (%) 96 Oxygen Delivery Method Room Air Intake Visit Reasons: 3 months Allergies Allergy/AdvReac Type Severity Reaction Status Date / Time oxycodone Allergy Severe Headache Verified 11/17/23 14:46 Iodinated Contrast Media Allergy Mild headache, Verified 11/17/23 14:46 burning skin Penicillins Allergy Mild Rash Verified 11/17/23 14:46 Quinolones Allergy Mild Rash Verified 11/17/23 14:46 moxifloxacin Allergy Unknown Unknown Verified 11/17/23 14:46 doxycycline AdvReac Intermediate TEARS UP Verified 11/17/23 14:46 STOMACH- CAUSES ALOT OF PAIN hydrocodone AdvReac Intermediate vomiting, Verified 11/17/23 14:46 headache nitrofurantoin AdvReac Intermediate Vomiting Verified 11/17/23 14:46 [From Macrobid] albuterol AdvReac Mild HEADACHE,NA Verified 11/17/23 14:46 USEA bee venom protein (honey bee) AdvReac Mild swelling, Verified 11/17/23 14:46 vomiting calcium AdvReac Mild GI upset Verified 11/17/23 14:46 fluconazole AdvReac Mild Headache Verified 11/17/23 14:46 Current Medication List - Last Reconciled 11/17/23 by Alma Rodriguez alprazolam 0.25 mg tablet 0.25 mg PO BID PRN 30 days cholecalciferol (vitamin D3) 50 mcg (2,000 unit) capsule 50 mcg PO DAILY denosumab 60 mg/mL subcutaneous syringe (Prolia) 60 mg subcut [id number] fluticasone propionate 50 mcg/actuation nasal spray,suspension 1 spray Nostril-both DAILY loratadine 10 mg tablet 10 mg PO DAILY nystatin 100,000 unit/gram topical powder 1 applic topical BID pantoprazole 40 mg tablet,delayed release 40 mg PO BID polyethylene glycol 3350 17 gram oral powder packet (Miralax) 17 grams PO DAILY PRN rosuvastatin 40 mg tablet 40 mg PO DAILY 90 days sucralfate 1 gram tablet (Carafate) 1 GM PO Q6H PRN venlafaxine 37.5 mg capsule,extended release 24 hr 37.5 mg PO DAILY 90 days NS Nurse's Note: Pt here for 3 month f/u visit. Pt was seen at on 10/14/23 and prescribed nystatin for vaginal itching. Pt states she needs a refill but denies itching at this time. Pt saw Dr. Awan at [facility] in July. They told her she does not have gastroparesis, no surgery needed, and pt does not need a special diet. No f/u necessary. Pt prescribed Linzess, this helped but made pt sick to her stomach so pt stopped taking and was told there is not a similar medication. [facility] Medical History Congenital ureteropelvic junction obstruction Granulomatous disease Hydronephrosis Chronic pain of left ankle Abnormal mammogram Breast cancer screening by mammogram HTN (hypertension), benign Dyslipidemia Mitral regurgitation Aortic heart murmur Nonspecific ST-T wave electrocardiographic changes Bilateral tinnitus Osteoporosis Fracture of left ankle Adult hypothyroidism Pancreatitis Pneumonia Constipation Gastritis Bronchitis Anxiety Back pain UPJ (ureteropelvic junction) obstruction Cataracts, bilateral Heart murmur Seasonal allergies GERD (gastroesophageal reflux disease) High cholesterol Surgical History Hx of cataract surgery History of appendectomy H/O bladder repair surgery Hx of cholecystectomy Hx of hysterectomy Family History Father No problems noted. Mother No problems noted. Social History Social History History Provided by: Patient Living Situation History Usual Living Arrangement: Alone Anyone at Home Need Help While Hospitalized: No Tobacco History Smoking Status: Former Smoker (Quit 1997) Years Smoked: 38 Packs Per Day: 1 Other Form of Tobacco Used: Never Used Second Hand Tobacco Smoke Exposure: No AUDIT-C How Often do you Have a Drink Containing Alcohol: Never How Many Standard Drinks Containing Alcohol do you Have on a Typical Day: None How Often do you Have Six or More Drinks on One Occasion: Never AUDIT-C Alcohol Total Score: 0 Substance Use History Caffeine Use: Yes Non-Prescribed Substance Use: Denies Use Has Patient Ever Been Admitted to Treatment Facility for Alcohol/Drug Abuse: No Abuse His (more content not included)... Normal [facility] Urine Cultureon 10-16-2023 Bacteria identified Cx Nom (U) Urine Culture Comment verbal consent obtained ESCCOLEscherichia coliEscherichia coli CCColony Count >100,000 ORGANISM ID: 1.1 ANTIBIOTIC INTERPRETATION SIL STATUS S <=2 F S <=2 F S <=4 F S <=0.12 F - NEG F S <=0.25 F S <=0.25 F S <=0.12 F S <=1 F S <=0.25 F S 0.5 F S 32 F S <=20 F S <=4 F Normal [facility] Comment on above: Performed By: #### U AREFLEX #### [facility] [address] [place] [address] Colin 10-14-2023 [facility] [address] [place] [address] Office Visit Report Signed Patient Name: Sherry Ash [id number] Date of : 1945 Age/Sex: 77 / F Date of Service: Location: [facility] Urgent Care Attending physician: Meera Pittman SEO ASSISTANT Intake Vital Signs 10/14/23 09:39 BP 114/62 Respiration 18 Pulse 69 Pulse Source NIBP Temp 98 F Pulse Oximetry (%) 98 Oxygen Delivery Method Room Air Intake Visit Reasons: Possible Kidney Infection Allergies Allergy/AdvReac Type Severity Reaction Status Date / Time oxycodone Allergy Severe Headache Verified 10/14/23 09:39 Iodinated Contrast Media Allergy Mild headache, Verified 10/14/23 09:39 burning skin Penicillins Allergy Mild Rash Verified 10/14/23 09:39 Quinolones Allergy Mild Rash Verified 10/14/23 09:39 moxifloxacin Allergy Unknown Unknown Verified 10/14/23 09:39 doxycycline AdvReac Intermediate TEARS UP Verified 10/14/23 09:39 STOMACH- CAUSES ALOT OF PAIN hydrocodone AdvReac Intermediate vomiting, Verified 10/14/23 09:39 headache nitrofurantoin AdvReac Intermediate Vomiting Verified 10/14/23 09:39 [From Macrobid] albuterol AdvReac Mild HEADACHE,NA Verified 10/14/23 09:39 USEA bee venom protein (honey bee) AdvReac Mild swelling, Verified 10/14/23 09:39 vomiting calcium AdvReac Mild GI upset Verified 10/14/23 09:39 fluconazole AdvReac Mild Headache Verified 10/14/23 09:39 Current Medication List - Last Reconciled 10/14/23 by Nina Mendoza alprazolam 0.25 mg tablet 0.25 mg PO BID PRN 30 days cholecalciferol (vitamin D3) 50 mcg (2,000 unit) capsule 50 mcg PO DAILY denosumab 60 mg/mL subcutaneous syringe (Prolia) 60 mg subcut [id number] fluticasone propionate 50 mcg/actuation nasal spray,suspension 1 spray Nostril-both DAILY loratadine 10 mg tablet 10 mg PO DAILY metoclopramide HCl 10 mg tablet (Reglan) 10 mg PO BID 3 weeks pantoprazole 40 mg tablet,delayed release 40 mg PO BID rosuvastatin 40 mg tablet 40 mg PO DAILY sucralfate 1 gram tablet (Carafate) 1 GM PO Q6H PRN sulfamethoxazole 800 mg-trimethoprim 160 mg tablet (Bactrim DS) 1 tab PO BID 3 days venlafaxine 37.5 mg capsule,extended release 24 hr 37.5 mg PO DAILY 90 days NS Nurse's Note: little over week of burning with urination then yesterday went to gym and after that has had low back pain, pain stays in back stomach bloated and constipated was seen in [facility] Medical History Congenital ureteropelvic junction obstruction Granulomatous disease Hydronephrosis Chronic pain of left ankle Abnormal mammogram Breast cancer screening by mammogram HTN (hypertension), benign Dyslipidemia Mitral regurgitation Aortic heart murmur Nonspecific ST-T wave electrocardiographic changes Bilateral tinnitus Osteoporosis Fracture of left ankle Adult hypothyroidism Pancreatitis Pneumonia Constipation Gastritis Bronchitis Anxiety Back pain UPJ (ureteropelvic junction) obstruction Cataracts, bilateral Heart murmur Seasonal allergies GERD (gastroesophageal reflux disease) High cholesterol Surgical History Hx of cataract surgery History of appendectomy H/O bladder repair surgery Hx of cholecystectomy Hx of hysterectomy Family History Father No problems noted. Mother No problems noted. Urgent Care Social History Social History History Provided by: Patient Living Situation History Usual Living Arrangement: Alone Anyone at Home Need Help While Hospitalized: No Tobacco History Smoking Status: Former Smoker (Quit 1997) Years Smoked: 38 Packs Per Day: 1 Other Form of Tobacco Used: Never Used Second Hand Tobacco Smoke Exposure: No AUDIT-C How Often do you Have a Drink Containing Alcohol: Never How Many Standard Drinks Containing Alcohol do you Have on a Typical Day: None How Often do you Have Six or More Drinks on One Occasion: Never AUDIT-C Alcohol Total Score: 0 Substance Use History Caffeine Use: Yes Non-Prescribed Substance Use: Denies Use Has Patient Ever Been Admitted to Treatment Facility for Alcohol/Drug Abuse: No Abuse History of Physical Abuse: No History of Emotional Abuse: No History of Sexual Abuse: No Suspect/Identified Abuse: No Provider Notified of Abuse or Suspected Abuse: No HPI Possible Kidney Infection HPI Details 77-year-old female presents with burning with urin ation for the past week, she has a history of UTIs. She also started having low back pain onset yesterday after she went to the gym. She has been having stomach bloating and constipation and (more content not included)... Normal [facility] ADVANCED BV TMAon 10-14-2023 ADVANCED BV TMA ADVANCED BV TMA Comment verbal consent Negative TYRA SPECIES Comment verbal consent Detected C. GLABRATA Comment verbal consent Not Detected Tyra species C. albicans, C.tropicalis, C. parapsilosis, and/or C. dubliniensis can be detected, but not differentiated, in the Tyra spp. result. T. VAGINALIS Comment verbal consent Not Detected Test Performed by [employer], [employer] [facility], [address] [place] [address] Srikanth Fuller M.D., Ph.D., Director of Laboratories , [facility] [id number] Normal [facility] Comment on above: Performed By: #### C M, CP1, LIP #### [facility] [address] [place] [address] Bacterial urine cultureOrder ed By: Meera Pittman on 10-14-2023 Bacteria identified Cx Nom (U) Escherichia coli Abnormal [facility] Laboratory - Chemistry and C hemistry - challengeon 10-14-2023 Bilirubin Ql (U) Negative [facility] Glucose Ql (U) Negative [facility] Ketones Ql (U) Negative [facility] pH (U) 5.5 [pH] [facility] Specific gravity (U) [Rel density] 1.025 [facility] Urobilinogen (U) [Mass/Vol] 0.2 mg/dL [facility] Laboratory - Specimen inform ationon 10-14-2023 Appearance (U) clear [facility] Color (U) Yellow [facility] Laboratory - Urinalysison Leukocyte esterase Test strip Ql (U) Negative [facility] Nitrite Ql (U) Negative [facility] Protein Ql (U) + [facility] No Panel Informationon 10-13 Urine Occult Blood Negative [facility] RODRIGOVISon 08-26-2023 [facility] [address] [place] [id number] Office Visit Report Signed Patient Name: Sherry Ash [id number] Date of : 1945 Age/Sex: 77 / F Date of Service: Location: [facility] Orthopedics Attending physician: Joy Wan PA HPI PROLIA, REVIEW LABS, NO PA NEEDED HPI Details Sherry Ash is a 77 year old F HPI Comments History of Present Illness Details Patient is here today for repeat Prolia injection and to review her recent labs.. She has had no falls since her last visit here. She does not take calcium supplementation as it upsets her stomach. She is taking vitamin D. She has a history of 2 fragility fractures. Secondary causes of osteoporosis include premature menopause after hysterectomy with bilateral salpingo-oophorectomy. No family history of fracture. She works out at the gym regularly. Exam Ortho Exam Narrative Exam Narrative: She is ambulatory with no assistive device. Assessment Plan Assessment Plan (1) Postmenopausal: Code(s): Z78.0 - Asymptomatic menopausal state Category: Medical (2) Osteoporosis: Code(s): M81.0 - Age-related osteoporosis without current pathological fracture Category: Medical Plan: Laboratory Tests ??? 11/27/19 01/15/20 08/02/20 ??? 10:08 14:40 19:27 Estimated GFR ?> 60 Calcium ?8.9 Alkaline Phosphatase ?75 ??? Vitamin D 25-Hydroxy ???52.2 ? TSH 3rd Generation ?2.722 ??? labs October 2019 vitamin D 52. Labs February 2021 GFR greater than 60. Calcium 9.7. Alkaline phosphatase 65. Labs March 2021 GFR greater than 60. Calcium 10.2. Alkaline phosphatase 68. Labs May 2021 vitamin D 46. Labs October 2021 GFR greater than 60. Calcium 9.2. Alkaline phosphatase 58. Labs December 2022 calcium 9.0. GFR greater than 60. FRAX score 2017 shows her major risk of fracture in the next 10 years is 28%. 10-year probability of hip fracture 9.8%. FRAX score 2019 shows a major risk of fracture in the next 10 years is 25%. 10-year probability of hip fracture 10%. FRAX score 2021 shows her major risk of fracture in the next 10 years is 25%. 10-year probability of hip fracture 12%. FRAX score adjusted with TBS 2022 major risk of fracture 18%. 10-year probability of hip fracture 4.9%. DEXA scan [facility] 04/23/2015 lumbar T score -0.9. Total hip T score -1.6. Femoral neck T score -1.8. DEXA scan [facility] 10/07/2017 lumbar T score -1.2. Total hip T score -1.6. Femoral neck T score -1.9. DEXA scan [facility] 11/27/2019 lumbar T score -0.3. Total hip T score -1.3. Femoral neck T score -1.5. DEXA scan [facility] 12/17/2021 lumbar T score -0.1. Total hip T score -1.1. Femoral neck T score -1.2. Distal radius one third T score -1.3. DEXA scan [facility] 02/15/2023 adjusted lumbar T score 0.4. Total hip -0.9. Femoral neck -1.6. Distal radius one third T score -2.6. Trabecular bone score 1.366 normal microarchitecture. VFA T4 moderate wedge. T6, T7 mild wedge. I reviewed her labs which remained stable. The BMD and TBS values suggest a moderate resilience to fracture. Her T-scores have improved while on Prolia and trabecular bone score is normal. Her overall risk of fracture has decreased significantly since starting Prolia based on her FRAX scores. She has osteoporosis with a history of fragility fractures.??? I perform repeat Prolia injection today and she tolerated this well. I asked that she get a new CMP and vitamin D and PTH lab in July 2024. She will continue current vitamin D supplementation. I encouraged her to perform 3 hours weightbearing exercise per week. We will see her in the office in 6 months for repeat Prolia injection.??? She will be due for another DEXA scan with VFA and TBS in January 2025. Orders: Orders Prolia Injection Today M81.0 - Age-related osteoporosis without current pathological fracture Xray Readings Imaging Studies Recent Pertinent Imaging Studies: No Data to Display Intake Vital Signs 08/26/23 11:25 08/26/23 11:30 Height 5 ft 2 in Weight 147 lb BMI 26.9 BP 88/62 L 88/62 L BP Location Right Brachial BP Position Sitting BP Cuff Size Adult Pulse 72 Pulse Source NIBP Temp 98.2 F Temp Source Temporal Artery Scan Intake Visit Reasons: PROLIA, REVIEW LABS, NO PA NEEDED Allergies Allergy/AdvReac Type Severity Reaction Status Date / Time oxycodone Allergy Severe Headache Verified 08/26/23 11:26 Iodinated Contrast Media Allergy Mild headache, Verified 08/26/23 11:26 burning skin Penicillins Allergy Mild Rash Verified 08/26/23 11:26 Quinolones Allergy Mild Rash Verified 08/26/23 11:26 m (more content not included)... Normal [facility] Maryam 08-24-2023 [facility] Telephone ([facility]) -- SHERRY ASH ([id number]) 1945 F Date Time Provider Department 08[facility]24[facility]23 [facility] During your visit today, we recorded the following information about you: Pablo Messer, RN 08/24/2023 11:41 AM Signed Called patient, confirmed identity. Talked with patient , Gave patient information to contact pharmacist re other medication same class , covered by her insurance and less expensive. May also use Apps or coupons for medications on good Rx or other websites. Can contact purchasing supervisor to see if she is eligible for program from them Patient is not interested in taking medication at this time She states that no longer diagnosed with gastroparesis, and since restrictions on diet have stopped She has been feeling better. Patient may go back to normal diet including dietary fiber as tolerated for regularity . Please call us back and let us know if any problems or concerns [facility] [phone] Allergies As of Date: 08/24/2023 Noted Allergy Reaction ALBUTEROL 08/16/2023 5 - Intolerance BEE VENOM PROTEIN (HONEY BEE) 08/16/2023 10 - Anaphylaxis CALCIUM 08/16/2023 5 - Intolerance DOXYCYCLINE 08/16/2023 4 - Hives FLUCONAZOLE 08/16/2023 4 - Hives HYDROCODONE 08/16/2023 8 - GI Upset IODINE CONTRAST (IODINE) 08/16/2023 16 - Unknown MACROBID (NITROFURANTOIN MONOHYD/*08/16/2023 4 - Hives MOXIFLOXACIN 08/16/2023 5 - Intolerance PENICILLIN 08/16/2023 4 - Hives QUINOLONES 08/16/2023 16 - Unknown Date Reviewed: 08/16/2023 Reviewed by: Jenn Richards LPN - Fully Assessed Prescriptions as of 08/24/2023 - ALPRAZolam (XANAX) 0.25 mg tablet ALPRAZolam - ascorbic acid, vitamin C, (VITAMIN C) 500 mg tablet Take 1 tablet by mouth every 48 hours. - FLUTICASONE PROPIONATE NASAL Fluticasone Propionate - pantoprazole DR (PROTONIX) 40 mg tablet Take 40 mg by mouth two times a day. - loratadine 10 mg cap Take 10 mg by mouth once daily. - cholecalciferol (VITAMIN D-3) 50 mcg (2,000 unit) tablet Take 2,000 Units by mouth once daily. - metoclopramide HCl (REGLAN) 5 mg tablet Take 5 mg by mouth four times daily. - rosuvastatin (CRESTOR) 40 mg tablet Take 40 mg by mouth once daily. - linaCLOtide (LINZESS) 72 mcg capsule Take 1 capsule by mouth once daily. Administer on an empty stomach. Swallow whole; DO NOT crush or chew. Problem List As Of Date: 08/24/2023 (None) Encounter Status:Closed by PABLO MESSER on 08/24/23 Normal [facility] Urine Cultureon 08-17-2023 Bacteria identified Cx Nom (U) Urine Culture ESCCOLEscherichia coliEscherichia coli CCColony Count >100,000 STRAGAStrep agalactiae - (group b)Strep agalactiae - (group b) CCColony Count 50,000 - 60,000 ORGANISM ID: [id number] ANTIBIOTIC INTERPRETATION SIL STATUS S <=2 F S <=2 F S <=4 F S <=0.12 F - NEG F S <=0.25 F S <=0.25 F S <=0.12 F S <=1 F S <=0.25 F S 0.5 F S <=16 F S <=20 F S <=4 F ORGANISM ID: [id number] ANTIBIOTIC INTERPRETATION SIL STATUS S <=0.25 F S <=0.12 F R >=1 F - NEG F R >=8 F S 1 F S <=0.06 F R >=16 F S 0.5 F Normal [facility] Comment on above: Performed By: #### U AREFLEX #### [facility] [address] [place] [address] ACETYLCHOLINE REC BINDING AB on 08-16-2023 ACETYLCHOLINE BINDING, QUAL Negative Normal Negative [facility] Comment on above: Order Comment: Speci men Type: BLOOD SPECIMEN Ordering Facility: [facility] Address: [address] [place] [address] Result Comment: Anti -acetylcholine receptor binding antibody test is used as an aid in diagnosis of myasthenia gravis. A negative result cannot exclude myasthenia gravis. Clinical correlation is required. Performed By: #### C ARNPL #### [facility] CLIA [id number] [address] [place], [place] [address] [place] [address] [place] Acetylcholine receptor binding Ab (S) [Moles/Vol] <0.02 Normal <0.21 [facility] Comment on above: Order Comment: Speci men Type: BLOOD SPECIMEN Ordering Facility: [facility] Address: [address] [place] [address] Performed By: #### C ARNPL #### [facility] CLIA [id number] [address] [place] [address] [place] AMINO ACIDS, PLASMA W/ CONSU LTATIONon 08-16-2023 Alanine [Moles/Vol] 505 umol/L Normal 177-583 [facility] Comment on above: Order Comment: Speci men Type: BLOOD SPECIMEN Ordering Facility: [facility] Address: [address] [place] [address] Performed By: #### C ARNPL #### [facility] CLIA [id number] [address] [place] [address] [place] Alloisoleucine [Moles/Vol] <1 Normal 0-2 [facility] Comment on above: Order Comment: Speci men Type: BLOOD SPECIMEN Ordering Facility: [facility] Address: [address] [place] [address] Performed By: #### C ARNPL #### [facility] CLIA [id number] [address] [place] [address] [place] Alpha aminoadipate [Moles/Vol] <1 Normal 0-6 [facility] Comment on above: Order Comment: Speci men Type: BLOOD SPECIMEN Ordering Facility: [facility] Address: [address] [place] [address] Performed By: #### C ARNPL #### [facility] CLIA [id number] [address] [place] [address] [place] AMINO ACID CONSULTATION, PLASMA Normal [facility] Comment on above: Order Comment: Speci men Type: BLOOD SPECIMEN Ordering Facility: [facility] Address: [address] [place] [address] Result Comment: This plasma amino acid analysis shows no significant abnormalities. Reference intervals from Moreno Aragon, Vicki MG, Jenkins NICO, and Lit DK: Biochemical Genetics: A Laboratory Manual, Copyright 1989 by [employer] Reference intervals not established for some amino acids. This test was developed and its performance characteristics determined by [facility] Aaron JSandra [facility] Laboratory [facility] [employer] ([facility]). It has not been cleared or approved by the FDA. [facility] is regulated under CLIA as qualified to perform high complexity testing. This test is used for clinical purposes. It should not be regarded as investigational or for research. Performed By: #### C ARNPL #### [facility] CLIA [id number] [address] [place] [address] [place] AMINO ACIDS REVIEW, PLASMA Reviewed by Juan Antonio León MD, Ph.D ([id number]) [facility] Comment on above: Order Comment: Speci men Type: BLOOD SPECIMEN Ordering Facility: [facility] Address: [address] [place] [address] Performed By: #### C ARNPL #### [facility] CLIA [id number] [address] [place] [address] [place] Arginine [Moles/Vol] 95 umol/L Normal 15-128 [facility] Comment on above: Order Comment: Speci men Type: BLOOD SPECIMEN Ordering Facility: [facility] Address: [address] [place] [address] Performed By: #### C ARNPL #### [facility] CLIA [id number] [address] [place] [address] [place] Asparagine [Moles/Vol] 81 umol/L High 35-74 [facility] Comment on above: Order Comment: Speci men Type: BLOOD SPECIMEN Ordering Facility: [facility] Address: [address] [place] [address] Performed By: #### C ARNPL #### [facility] CLIA [id number] [address] [place] [address] [place] Aspartate [Moles/Vol] 4 umol/L Normal 1-25 [facility] Comment on above: Order Comment: Speci men Type: BLOOD SPECIMEN Ordering Facility: [facility] Address: [address] [place] [address] Performed By: #### C ARNPL #### [facility] CLIA [id number] [address] [place] [id number] [place] Citrulline [Moles/Vol] 46 umol/L Normal 12-55 So [facility] Comment on above: Order Comment: Speci men Type: BLOOD SPECIMEN Ordering Facility: [facility] Address: [address] [place] [address] Performed By: #### C ARNPL #### [facility] CLIA [id number] [address] [place], [place] [id number] [place] Cystine [Moles/Vol] 63 umol/L Normal 5-82 [facility] Comment on above: Order Comment: Speci men Type: BLOOD SPECIMEN Ordering Facility: [facility] Address: [address] [place] [address] Performed By: #### C ARNPL #### [facility] CLIA [id number] [address] [place] [address] [place] Glutamate [Moles/Vol] 64 umol/L Normal 10-131 [facility] Comment on above: Order Comment: Speci men Type: BLOOD SPECIMEN Ordering Facility: [facility] Address: [address] [place] [address] Performed By: #### C ARNPL #### [facility] CLIA [id number] [address] [place] [address] [place] Glutamine [Moles/Vol] 574 umol/L Normal 205-756 [facility] Comment on above: Order Comment: Speci men Type: BLOOD SPECIMEN Ordering Facility: [facility] Address: [address] [place], [place] [id number] Performed By: #### C ARNPL #### [facility] CLIA [id number] [address] [place] [address] [place] Glycine [Moles/Vol] 301 umol/L Normal 151-490 [facility] Comment on above: Order Comment: Speci men Type: BLOOD SPECIMEN Ordering Facility: [facility] Address: [address] [place], [place] [id number] Performed By: #### C ARNPL #### [facility] CLIA [id number] [address] [place] [address] [place] Histidine [Moles/Vol] 78 umol/L Normal 72-124 [facility] Comment on above: Order Comment: Speci men Type: BLOOD SPECIMEN Ordering Facility: [facility] Address: [address] [place] [address] Performed By: #### C ARNPL #### [facility] CLIA [id number] [address] [place] [address] [place] Hydroxylysine [Moles/Vol] <1 High <=0 [facility] Comment on above: Order Comment: Speci men Type: BLOOD SPECIMEN Ordering Facility: [facility] Address: [address] [place] [address] Performed By: #### C ARNPL #### [facility] CLIA [id number] [address] [place] [address] [place] Hydroxyproline [Moles/Vol] 13 umol/L Normal 0-53 [facility] Comment on above: Order Comment: Speci men Type: BLOOD SPECIMEN Ordering Facility: [facility] Address: [address] [place] [address] Performed By: #### C ARNPL #### [facility] CLIA [id number] [address] [place] [address] [place] Isoleucine [Moles/Vol] 86 umol/L Normal 30-108 [facility] Comment on above: Order Comment: Speci men Type: BLOOD SPECIMEN Ordering Facility: [facility] Address: [address] [place] [address] Performed By: #### C ARNPL #### [facility] CLIA [id number] [address] [place] [address] [place] Leucine [Moles/Vol] 152 umol/L Normal 72-201 [facility] Comment on above: Order Comment: Speci men Type: BLOOD SPECIMEN Ordering Facility: [facility] Address: [address] [place] [address] Performed By: #### C ARNPL #### [facility] CLIA [id number] [address] [place] [address] [place] Lysine [Moles/Vol] 240 umol/L Normal 116-296 [facility] Comment on above: Order Comment: Speci men Type: BLOOD SPECIMEN Ordering Facility: [facility] Address: [address] [place] [address] Performed By: #### C ARNPL #### [facility] CLIA [id number] [address] [place] [address] [place] Methionine [Moles/Vol] 36 umol/L Normal 10-42 [facility] Comment on above: Order Comment: Speci men Type: BLOOD SPECIMEN Ordering Facility: [facility] Address: [address] [place] [address] Performed By: #### C ARNPL #### [facility] CLIA [id number] [address] [place] [address] [place] Ornithine [Moles/Vol] 133 umol/L Normal 48-195 [facility] Comment on above: Order Comment: Speci men Type: BLOOD SPECIMEN Ordering Facility: [facility] Address: [address] [place] [address] Performed By: #### C ARNPL #### [facility] CLIA [id number] [address] [place] [id number] [place] Phenylalanine [Moles/Vol] 86 umol/L High 35-85 [facility] Comment on above: Order Comment: Speci men Type: BLOOD SPECIMEN Ordering Facility: [facility] Address: [address] [place] [address] Performed By: #### C ARNPL #### [facility] CLIA [id number] [address] [place] [address] [place] Proline [Moles/Vol] 300 umol/L Normal 97-329 [facility] Comment on above: Order Comment: Speci men Type: BLOOD SPECIMEN Ordering Facility: [facility] Address: [address] [place] [address] Performed By: #### C ARNPL #### [facility] CLIA [id number] [address] [place] [address] [place] Sarcosine [Moles/Vol] <1 High <=0 [facility] Comment on above: Order Comment: Speci men Type: BLOOD SPECIMEN Ordering Facility: [facility] Address: [address] [place] [address] Performed By: #### C ARNPL #### [facility] CLIA [id number] [address] [place] [address] [place] Serine [Moles/Vol] 132 umol/L Normal 58-181 [facility] Comment on above: Order Comment: Speci men Type: BLOOD SPECIMEN Ordering Facility: [facility] Address: [address] [place] [address] Performed By: #### C ARNPL #### [facility] CLIA [id number] [address] [place] [address] [place] Taurine [Moles/Vol] 74 umol/L Normal 54-210 [facility] Comment on above: Order Comment: Speci men Type: BLOOD SPECIMEN Ordering Facility: [facility] Address: [address] [place] [address] Performed By: #### C ARNPL #### [facility] CLIA [id number] [address] [place] [address] [place] Threonine [Moles/Vol] 140 umol/L Normal 60-225 [facility] Comment on above: Order Comment: Speci men Type: BLOOD SPECIMEN Ordering Facility: [facility] Address: [address] [place] [address] Performed By: #### C ARNPL #### [facility] CLIA [id number] [address] [place] [address] [place] Tyrosine [Moles/Vol] 71 umol/L Normal 34-112 [facility] Comment on above: Order Comment: Speci men Type: BLOOD SPECIMEN Ordering Facility: [facility] Address: [address] [place] [address] Performed By: #### C ARNPL #### [facility] CLIA [id number] [address] [place] [address] [place] Valine [Moles/Vol] 251 umol/L Normal 119-336 [facility] Comment on above: Order Comment: Speci men Type: BLOOD SPECIMEN Ordering Facility: [facility] Address: [address] [place] [address] Performed By: #### C ARNPL #### [facility] CLIA [id number] [address] [place] [address] [place] C-REACTIVE PROTEIN (CRP)on 0 08-16-2023 CRP [Mass/Vol] <0.9 mg/dL [facility] CARNITINE FREE/TOTAL, PLASMA on 08-16-2023 C0 [Moles/Vol] 17 umol/L Low 22-54 [facility] Comment on above: Order Comment: Speci men Type: BLOOD SPECIMEN Ordering Facility: [facility] Address: [address] [place] [address] Performed By: #### C ARNPL #### [facility] CLIA [id number] [address] [place] [address] [place] C0/Total carnitine [Molar fraction] 0.773 Normal 0.700-0.90 0 [facility] Comment on above: Order Comment: Speci men Type: BLOOD SPECIMEN Ordering Facility: [facility] Address: [address] [place] [address] Result Comment: NOTE : The determination of the plasma free carnitine level and of the total free and acylcarnitine levels is dependent on multiple factors, including the nutritional status of the subject, his/her underlying disorder, concurrent illnesses and, sometimes, medications that he/she is receiving. Consequently, a normal or minimally abnormal result with this test does not always rule-out the possibility of a disorder of carnitine or fatty acid metabolism. This test does not by itself provide information on the levels of various plasma acylcarnitine species and measurement of the latter is often needed for the diagnostic evaluation and follow-up of disorders of mitochondrial fatty acid beta-oxidation and some other disorders associated with pathologic levels of selected acylcarnitine species. This test was developed and its performance characteristics determined by the [facility] [employer]. The U.S. Food and Drug Administration has not approved or cleared this test, however, FDA clearance or approval is not currently required for clinical use. Performed By: #### Samina DIETRICH #### [facility] CLIA [id number] [address] [place] [address] [place] Carnitine [Moles/Vol] 22 umol/L Low 27-68 [facility] Comment on above: Order Comment: Isaac mays Type: BLOOD SPECIMEN Ordering Facility: [facility] Address: [address] [place] [address] Performed By: #### Samina DIETRICH #### [facility] CLIA [id number] [address] [place] [address] [place] CK CREATINE KINASEon 024 CK [Catalytic activity/Vol] 93 U/L 42 - 196 U/L [facility] CK SerPl-cCncon 08-16-2023 CK [Catalytic activity/Vol] 93 U/L Normal 42-196 [facility] Comment on above: Order Comment: Isaac mays Type: BLOOD SPECIMEN Ordering Facility: [facility] Address: [address] [place] [address] Performed By: #### 1 988-5, 2157-6 #### [facility] CLIA [id number] [address] [place] [address] [place] CNOVon 08-16-2023 CNOV Office Visit (GENSSP ) -- SHERRY ASH ([id number]) 1945 F Date Time Provider Department 08/16/23 1:30 PM ANNAB[facility]AN[facility] During your visit today, we recorded the following information about you: Pulse Blood pressure Weight Height 65/minute 117/58 67.8 kg 1.575 m Annabel Banks, DO 08/16/2023 6:53 PM Signed [facility] [employer] Gastroparesis/Dysmotility Consultation SERVICE DATE: 08/16/2023 SERVICE TIME: 1:26 PM PRIMARY CARE PHYSICIAN: No primary care provider on file. Taty Noble MD [address] [address] My final recommendations will be communicated back to the requesting physician by way of shared Medical record or letter to requesting physician via [place] mail. Assessment ASSESSMENT 77 year old female with medical refractory gastroparesis, the etiology of which is most likely idiopathic, and more likely represents secondary delayed gastric emptying due to lower GI dysmotility. There is clinical suspicion for mid/hind-gut dysmotility based on bowel patterns and symptom distribution. She does exhibit symptom improvement following aggressive Miralax clean out . Case is further confounded by prior GERD which is reasonably controlled on PPI, but with breakthrough belching, as well as significant anxiety which likely increase sympathetic tone and central sensitization of symptoms. Currently patient is tolerating a Regular diet, and does not exhibit severe malnutrition/weight loss. Based on patient's etiology, current symptoms, and dysmotility workup, I am uncertain if patient is an appropriate candidate for pyloric therapy. It was discussed in detail that the procedure would primarily aim to improve symptoms of vomiting/retching as well as delayed fullness. There may be some ancillary improvements to a lesser extent in areas of nausea and upper abdominal pressure, but is not guaranteed. Symptoms response of pain, nausea, bloating, and bowel patterns are unpredictable and may be confounded by other factors. Patient will ultimately require longitudinal adjunctive care including medical, nutritional/dietary, and behavioral/psychosocial support for optimal symptom palliation PLAN I discussed surgical therapy for gastroparesis in detail. Based on this discussion, Sherry Ash wishes to proceed with continued medical therapies - Recommend trial of FODMAP diet and/or FODZYME supplement - Agree with Trial of Linzess, may continue Miralax BID-TID as needed - Continue PPI once daily for GERD - Consider ARM and Defecography in future - Patient may follow up with me PRN via virtual visit. Consider trial of pyloric dilation if dyspepsia worsens or no response to medical/dietary therapies Risks of the procedure including bleeding (including major bleeding requiring transfusion), perforation, infection/abscess, ulceration (need for adherence to acid suppressive therapy), exacerbation of symptoms, symptom recurrence, anesthesia related complications, cardiopulmonary events, thromboembolic events, aspiration/pneumonia, dental gum injury, failure to identify/treat a condition, need for additional procedures/surgeries, as well as other rare complications including were presented. Alternatives of Pyloroplasty, Pyloric Dilation and Botox, and continued medical/dietary management were reviewed. NAME: Sherry Ash CLINIC NO: [id number] DATE OF SERVICE: August 16, 2023 This is an initial consultation for Sherry Ash who was referred to me by Taty Noble CNP for evaluation of medical refractory gastroparesis. My final recommendation will be communicated via shared electronic medical record. CHIEF COMPLAINT Idiopathic Gastroparesis HISTORY OF PRESENT ILLNESS Sherry Ash is a 77 year old female who comes in today for surgical evaluation for management of gastroparesis. The patient has been evaluated thoroughly including an EGD, and gastric emptying study. History is notable for anxiety, depression, congential ureteropelvic junction obstruction, gastritis, GERD, granulomatous disease, mitral regurgitation, pancreatitis, HTN, appendectomy, cholecystectomy and hysterectomy. Patient had an abnormal gastric emptying study 04/2021 showing 25% retention at 4 hours. Top 3 Symptoms: 1) Bloating, 2) Fullness, 3) Burning Pain Duration of symptoms (months): 5 years Diet: Semi regular, tries to follow GP diet Weight changes in last 3 months: Stable GERD: Belching and gas, minimal heartburn or regurgitation. Protonix once, uncertain if benefit Dysphagia: No Bowel Movements: Daily BM requiring miralax and suppository. Feels better when more cleaned. Hasn't started Linzess Pain: Burning, Mid-upper abdomen worse with eating Narcotics: None Smoking/Vapi (more content not included)... Normal [facility] Office Visit (GASTSP ) -- SHERRY ASH ([id number]) 1945 F Date Time Provider Department 08/16/23 1:00 PM MIHIR AWAN [facility] During your visit today, we recorded the following information about you: Pulse Blood pressure Weight Height 65/minute 117/58 67.8 kg 1.575 m Mihir Awan DO 08/16/2023 2:08 PM Signed GASTROPARESIS CONSULT Patient is referred by Dr. Taty Noble for an opinion regarding GP and my final recommendations will be communicated back to the requesting physician by way of a copy of today's office notes. PRESENTING COMPLAINT AND HISTORY Sherry is a 77 yr old female w/hx of anxiety, depression, congential ureteropelvic junction obstruction, gastritis, GERD, granulomatous disease, mitral regurgitation, pancreatitis, HTN, bladder repair, appendectomy, cholecystectomy and hysterectomy that had an abnormal gastric emptying study 04/2021 showing 25% retention at 4 hours. She had severe GERD and gas dating back to 2017. The bowels are moving only with miralax. She is trying to keep the bowels moving daily if possible. Patient is interested in learning more about EMPTIES Trial: no Patient is a candidate for EMPTIES Trial: No Gastrointestinal Symptoms Reflux/heartburn: Yes pantoprazole, carafate Abdominal pain/discomfort: Yes Weight loss: No Lost na lbs in na months Weight gain: No Gained na lbs in na months Do you have less than 3 bowel movements per week? No Diarrhea: No Constipation: Yes Malnutrition: No Gastroparesis Cardinal Symptom Index (CGSI) 1. Nausea: 3 2. Retchin 3. Vomitin 4. Stomach fullness: 5 5. Not able to finish a normal-sized meal: 0 6. Feeling excessively full after meals: 0 7. Loss of appetite: 0 8. Bloating (feeling like you need to loosen your clothes): 5 9. Stomach or belly visibly larger: 5 CGSI Score: 2.41 Scale (0-none; 1-very mild; 2-mild; 3-moderate; 4-severe; 5-very severe) MEDICATION HISTORY Promotility Drugs - Reglan (Metoclopramide): Yes - Gimoti (Metoclopramide nasal): No - Motilium (Domperidone): No - Erythromycin (E-mycin): No - Propulsid (Cisapride)_: No Other - Tricyclic Antidepressants (nortriptyline - Pamelor; amitriptyline - Elavil): No - Buspirone (Buspar): No - Mirtazapin (Remeron): No Anti-Nausea Medications - Compazine (Prochlorperazine): Yes - Phenergan (Promethazine): Yes - Benadryl (Diphenhydramine): Yes - Zofran (Ondansetron): No - Scopace (Scopolamine Patch): No - Granisetron (Kytril or Sancuso): No - Tigan (Trimethobenzamide)_: No Constipation Medications - Bulking Agents (Metamucil,Citrucel, Fibercon): Yes - Osmotic Laxatives (MOM, Polyethylene glycol (PEG), lactulose, sorbitol,MiraLax, Chronulal, Cephulac,Xylitol): Yes - Stimulant Laxatives (Ex-Lax, Senokot,Correctol, Dulcolax): Yes - Stool Softeners (Colace): Yes - Chloride Channel Activator (Amitiza): No - Linzess: No - Trulance: No - Motegrity: No Pain Medications - Does the patient see a aircraft painter apprentice for chronic abdominal pain?No - Is the patient taking narcotic pain medication for chronic abdominal pain? No - Narcotic Medications: (Tramadol, Fentanyl, codeine, hydrocodone, Hydromorphone, methadone, morphine, Oxycodone) No Drug use - History or current drug use (Marijuana, Cocaine, Heroine, etc...) No Eating Disorders - Does the patient have a history of eating disorders No If yes, please explain: na Psychiatric Disorders - Does the patient have a history of psychiatric disorders including PTSD: No If yes, please explain: na Nutrition - Has the patient met with a table keeper for diet recommendations with Gastroparesis? No - Jejunostomy (J-tube): _No - Gastrostomy (G-tube): No - Gastro-Jejunostomy (GJ-tube): _No - Nasojejunal (NJ-tube): _No - Nasogastric (NG-tube): _No - TPN (IV): _No - IV home hydration (IV): _No Medical Records - Has the patient had a smart capsule study completed? No - Does the patient have a history of any foregut surgery (vagotomy, hiatal hernia repair/MARIBELL Fundoplication, Heller Myotomy, gastrectomy, gastric bypass)?No If surgery, recent UGI? No - EGD: Yes - Botox Injections: No If yes was the Botox effective, and for how long: na Patient Name Sherry Ash Age [age] year old Gastroparesis Consult Test Date Completed Results Labs EGD 04/01/2020 [facility] Impression: - 2 cm hiatal hernia. - Normal stomach. - Normal examined duodenum. - The CAO pH capsule was deployed. - No specimens collected. XR ABd 02/27/2020 [facility] IMPRESSION: 1. 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 Small bowel distention may reflect ileus or partial obstruction. UGI w/small bowel 08/21/2019 [facility] Findings: The hypopharynx cervical and thoracic esophagus appear normal. (more content not included)... Normal [facility] CNOV Office Visit (GASTSP ) -- SHERRY ASH ([id number]) 1945 F Date Time Provider Department 08/16/23 11:[address] [facility] During your visit today, we recorded the following information about you: Cassia ChingVERA 08/16/2023 1:02 PM Signed ELECTROGASTROGRAPY W/ TEST Operation / Procedure performed Referring Provider: MIHIR AWAN [[id number]] Allergies As of Date: 08/16/2023 Noted Allergy Reaction ALBUTEROL 08/16/2023 5 - Intolerance BEE VENOM PROTEIN (HONEY BEE) 08/16/2023 10 - Anaphylaxis CALCIUM 08/16/2023 5 - Intolerance DOXYCYCLINE 08/16/2023 4 - Hives FLUCONAZOLE 08/16/2023 4 - Hives HYDROCODONE 08/16/2023 8 - GI Upset IODINE CONTRAST (IODINE) 08/16/2023 16 - Unknown MACROBID (NITROFURANTOIN MONOHYD/*08/16/2023 4 - Hives MOXIFLOXACIN 08/16/2023 5 - Intolerance PENICILLIN 08/16/2023 4 - Hives QUINOLONES 08/16/2023 16 - Unknown Date Reviewed: 08/16/2023 Reviewed by: Jenn Richards LPN - Fully Assessed Reason for Visit: Gastroparesis [421] Cmt: Gastroparesis Primary Visit Diagnosis:Gastroparesis [K31.84] Prescriptions as of 08/16/2023 - ALPRAZolam (XANAX) 0.25 mg tablet ALPRAZolam - ascorbic acid, vitamin C, (VITAMIN C) 500 mg tablet Take 1 tablet by mouth every 48 hours. - FLUTICASONE PROPIONATE NASAL Fluticasone Propionate - pantoprazole DR (PROTONIX) 40 mg tablet Take 40 mg by mouth two times a day. - loratadine 10 mg cap Take 10 mg by mouth once daily. - cholecalciferol (VITAMIN D-3) 50 mcg (2,000 unit) tablet Take 2,000 Units by mouth once daily. - metoclopramide HCl (REGLAN) 5 mg tablet Take 5 mg by mouth four times daily. - rosuvastatin (CRESTOR) 40 mg tablet Take 40 mg by mouth once daily. Problem List As Of Date: 08/16/2023 (None) Visit Notes: >> Cassia Ching MA Mon Aug 16, 2023 1:01 PM Status: Signed ELECTROGASTROGRAPY W/ TEST Operation / Procedure performed Encounter Status:Closed by CASSIA CHING on 08/16/23 Normal [facility] CRP SerPl-mCncon 08-16-2023 CRP [Mass/Vol] mg/L Normal <0.9 [facility] Comment on above: Order Comment: Speci men Type: BLOOD SPECIMEN Ordering Facility: [facility] Address: [address] [place] [address] Performed By: #### 1 988-5, 2157-6 #### [facility] CLIA [id number] [address] [place] [address] [place] CYTOKINE PANEL 13, SERUMon 0 08-16-2023 INTERFERON GAMMA <4.2 Normal <=4.2 [facility] Comment on above: Order Comment: Speci men Type: BLOOD SPECIMEN Ordering Facility: [facility] Address: [address] [place] [address] Performed By: #### C ARNPL #### [facility] CLIA [id number] [address] [place] [address] [place] INTERLEUKIN 1 BETA <6.5 Normal <=6.7 [facility] Comment on above: Order Comment: Speci men Type: BLOOD SPECIMEN Ordering Facility: [facility] Address: [address] [place] [address] Performed By: #### C ARNPL #### [facility] CLIA [id number] [address] [place] [address] [place] INTERLEUKIN 10 <2.8 Normal <=2.8 [facility] Comment on above: Order Comment: Speci men Type: BLOOD SPECIMEN Ordering Facility: [facility] Address: [address] [place] [address] Performed By: #### C ARNPL #### [facility] CLIA [id number] [address] [place] [address] [place] INTERLEUKIN 12 <1.9 Normal <=1.9 [facility] Comment on above: Order Comment: Speci men Type: BLOOD SPECIMEN Ordering Facility: [facility] Address: [address] [place] [address] Performed By: #### C ARNPL #### [facility] CLIA [id number] [address] [place] [address] [place] INTERLEUKIN 13 <1.7 Normal <=2.3 [facility] Comment on above: Order Comment: Speci men Type: BLOOD SPECIMEN Ordering Facility: [facility] Address: [address] [place] [address] Performed By: #### C ARNPL #### [facility] CLIA [id number] [address] [place] [address] [place] INTERLEUKIN 17 <1.4 Normal <=1.4 [facility] Comment on above: Order Comment: Speci men Type: BLOOD SPECIMEN Ordering Facility: [facility] Address: [address] [place] [address] Performed By: #### C ARNPL #### [facility] CLIA [id number] [address] [place] [address] [place] INTERLEUKIN 2 <2.1 Normal <=2.1 [facility] Comment on above: Order Comment: Speci men Type: BLOOD SPECIMEN Ordering Facility: [facility] Address: [address] [place] [address] Performed By: #### C ARNPL #### [facility] CLIA [id number] [address] [place] [address] [place] INTERLEUKIN 4 (INT4) <2.2 Normal <=2.2 [facility] Comment on above: Order Comment: Speci men Type: BLOOD SPECIMEN Ordering Facility: [facility] Address: [address] [place] [address] Performed By: #### C ARNPL #### [facility] CLIA [id number] [address] [place] [address] [place] INTERLEUKIN 5 <2.1 Normal <=2.1 [facility] Comment on above: Order Comment: Speci men Type: BLOOD SPECIMEN Ordering Facility: [facility] Address: [address] [place] [address] Performed By: #### C ARNPL #### [facility] CLIA [id number] [address] [place] [address] [place] INTERLEUKIN 6 <2.0 Normal <=2.0 [facility] Comment on above: Order Comment: Speci men Type: BLOOD SPECIMEN Ordering Facility: [facility] Address: [address] [place] [address] Performed By: #### C ARNPL #### [facility] CLIA [id number] [address] [place] [address] [place] INTERLEUKIN 8 <3.0 Normal <=3.0 [facility] Comment on above: Order Comment: Speci men Type: BLOOD SPECIMEN Ordering Facility: [facility] Address: [address] [place] [address] Performed By: #### C ARNPL #### [facility] CLIA [id number] [address] [place] [address] [place] INTERLEUKIN-2 RECEPTOR 739.5 pg/mL Normal 175.3 -858. 2 [facility] Comment on above: Order Comment: Speci men Type: BLOOD SPECIMEN Ordering Facility: [facility] Address: [address] [place] [address] Performed By: #### C ARNPL #### [facility] CLIA [id number] [address] [place] [address] [place] TUMOR NECROSIS FACTOR - ALPHA <1.7 Normal <=7.2 [facility] Comment on above: Order Comment: Speci men Type: BLOOD SPECIMEN Ordering Facility: [facility] Address: [address] [place], [place] [id number] Result Comment: INTE RPRETIVE INFORMATION: Cytokines Results are used to understand the pathophysiology of immune, infectious, or inflammatory disorders, or may be used for research purposes. This test was developed and its performance characteristics determined by [facility]. It has not been cleared or approved by the [place] Food and Drug Administration. This test was performed in a CLIA certified laboratory and is intended for clinical purposes. Performed By: [facility] [address] [place] [id number] Email Marketing Executive: Bc Calix MD, PhD CLIA Number: [id number] Performed By: #### C ARNPL #### [facility] CLIA [id number] [address] [place] [address] [place] ESR Westergren method (Bld) [Velocity]on 08-16-2023 ESR (Bld) [Velocity] 6 mm/h Normal 0-20 [facility] Comment on above: Order Comment: Speci men Type: BLOOD SPECIMEN Ordering Facility: [facility] Address: [address] [place] [address] Performed By: #### 4 537-7 #### [facility] CLIA [id number] [address] [place] [address] [place] ESTROGEN FRACTION BLon 08-15 ESTRADIOL 4.8 pg/mL Normal [facility] Comment on above: Order Comment: Speci men Type: BLOOD SPECIMEN Ordering Facility: [facility] Address: [address] [place] [address] Result Comment: REFE RENCE INTERVAL: Estradiol by [place] Supervisor For a complete set of all established reference intervals, refer to [email or web address]. This test was developed and its performance characteristics determined by [facility] health research. It has not been cleared or approved by the [place] Food and Drug Administration. This test was performed in a CLIA certified laboratory and is intended for clinical purposes. Performed By: #### C ARNPL #### [facility] CLIA [id number] [address] [place] [address] [place] ESTROGENS TOTAL 17.0 pg/mL Normal [facility] Comment on above: Order Comment: Speci men Type: BLOOD SPECIMEN Ordering Facility: [facility] Address: [address] [place] [address] Result Comment: Refe rence interval of estrogens (pg/mL) Estrone Estradiol Total Estrogens Early follicular <150.0 30.0-100.0 30.0-250.0 Late follicular 100.0-250.0 100.0-400.0 200.0-650.0 Luteal <200.0 50.0-150.0 50.0-350.0 Post-menopausal 3.0-32.0 2.0-21.0 5.0-52.0 REFERENCE INTERVAL: Estrogens Total Calculation For a complete set of all established reference intervals, refer to [employer]/Tests/Pub/[id number]. Performed By: [facility] [address] [place] [id number] Email Marketing Executive: Bc Calix MD, PhD [place] Number: [id number] Performed By: #### C ARNPL #### [facility] CLIA [id number] [address] [place] [address] [place] ESTRONE 12.2 pg/mL Normal [facility] Comment on above: Order Comment: Speci men Type: BLOOD SPECIMEN Ordering Facility: [facility] Address: [address] [place] [address] Result Comment: INTERPRETIVE INFORMATION: Estrone by [place] Supervisor For a complete set of all established reference intervals, refer to [employer]/Tests/Pub/[id number]. This test was developed and its performance characteristics determined by [facility]. It has not been cleared or approved by the [place] Food and Drug Administration. This test was performed in a CLIA certified laboratory and is intended for clinical purposes. Performed By: #### C ARNPL #### [facility] CLIA [id number] [address] [place] [address] [place] GAD65 Ab Ser-aCncon 08-16-19 24 Glutamate decarboxylase 65 Ab Qn (S) <5.0 Normal <=5.0 [facility] Comment on above: Order Comment: Speci men Type: BLOOD SPECIMEN Ordering Facility: [facility] Address: [address] [place] [address] Result Comment: Anti -glutamic acid decarboxylase antibody (GAD65) test usually in conjunction with another test such as IA-2 antibody is used as an aid in establishing the autoimmune nature of previously-diagnosed type I diabetes mellitus or in predicting of progression to type I diabetes mellitus in patients with certain autoimmune diseases including autoimmune gastritis among others. It is also used as an aid in diagnosis of stiff person syndrome and certain autoimmune nervous system diseases. Clinical correlation is required. Performed By: #### C ARNPL #### [facility] CLIA [id number] [address] [place] [address] [place] Glutamate decarboxylase 65 A b Qn (S)on 08-16-2023 GLUTAMIC ACID DECARBOXYLAS AB QUALITATIVE Negative Normal Negative [facility] Comment on above: Order Comment: Isaac mays Type: BLOOD SPECIMEN Ordering Facility: [facility] Address: [address] [place] [address] Performed By: #### C ARNPL #### [facility] CLIA [id number] [address] [place] [address] [place] IgA SerPl-mCncon 08-16-2023 IgA [Mass/Vol] 30 mg/dL Low 70-400 [facility] Comment on above: Order Comment: Isaac mays Type: BLOOD SPECIMEN Ordering Facility: [facility] Address: [address] [place] [address] Performed By: #### 2 458-8, 2472-9, 2465-3 #### [facility] CLIA [id number] [address] [place] [address] [place] IgG SerPl-mCncon 08-16-2023 IgG [Mass/Vol] 604 mg/dL Low 700-1600 [facility] Comment on above: Order Comment: Isaac mays Type: BLOOD SPECIMEN Ordering Facility: [facility] Address: [address] [place] [address] Performed By: #### 2 458-8, 7402-9, 2465-3 #### [facility] CLIA [id number] [address] [place] [address] [place] IgM SerPl-mCncon 08-16-2023 IgM [Mass/Vol] 50 mg/dL Normal 40-230 [facility] Comment on above: Order Comment: Speci men Type: BLOOD SPECIMEN Ordering Facility: [facility] Address: [address] [place] [address] Performed By: #### 2 458-8, 2472-9, 2465-3 #### [facility] CLIA [id number] [address] [place] [address] [place] LDH SerPl-cCncon 08-16-2023 LDH [Catalytic activity/Vol] 237 U/L High 135-214 [facility] Comment on above: Order Comment: Speci men Type: BLOOD SPECIMEN Ordering Facility: [facility] Address: [address] [place] [address] Performed By: #### C ARNPL #### [facility] CLIA [id number] [address] [place] [address] [place] ORGANIC ACIDS UR, QUANT W/CO NSULTon 08-16-2023 2-Hydroxyglutarate/Cre atinine (U) [Molar ratio] 5.0 umol/mmolCr Normal 0.6-17.7 [facility] Comment on above: Order Comment: Speci men Type: URINE SPECIMEN Ordering Facility: [facility] Address: [address] [place] [address] Performed By: #### L [id number] #### [facility] CLIA [id number] [address] [place] [address] [place] 2-Hydroxyisovalerate/C reatinine (U) [Molar ratio] <0.1 Normal 0.0-0.1 [facility] Comment on above: Order Comment: Speci men Type: URINE SPECIMEN Ordering Facility: [facility] Address: [address] [place] [address] Performed By: #### L [id number] #### [facility] CLIA [id number] [address] [place] [address] [place] 5-Cieybt-4-hydroxybuty rate (C5-OH)/Creatinine (U) [Molar ratio] <0.6 Normal 0.0-1.3 [facility] Comment on above: Order Comment: Speci men Type: URINE SPECIMEN Ordering Facility: [facility] Address: [address] [place] [address] Performed By: #### L [id number] #### [facility] CLIA [id number] [address] [place] [address] [place] 2-Methylbutyrylglycine /Creatinine (U) [Molar ratio] <0.1 Normal 0.0-0.4 [facility] Comment on above: Order Comment: Speci men Type: URINE SPECIMEN Ordering Facility: [facility] Address: [address] [place] [address] Performed By: #### L [id number] #### [facility] CLIA [id number] [address] [place] [address] [place] 2-Methylcitrate/Creati nine (U) [Molar ratio] 2.6 umol/mmolCr Normal 1.0-13.9 [facility] Comment on above: Order Comment: Speci men Type: URINE SPECIMEN Ordering Facility: [facility] Address: [address] [place] [address] Performed By: #### L [id number] #### [facility] CLIA [id number] [address] [place] [address] [place] 2-Oxoadipate/Creatinin e (U) [Molar ratio] <1.6 Normal 0.0-3.3 [facility] Comment on above: Order Comment: Speci men Type: URINE SPECIMEN Ordering Facility: [facility] Address: [address] [place] [address] Performed By: #### L [id number] #### [facility] CLIA [id number] [address] [place] [address] [place] 3-Hydroxyglutarate/Cre atinine (U) [Molar ratio] 0.0 umol/mmolCr Normal 0.0-0.7 [facility] Comment on above: Order Comment: Speci men Type: URINE SPECIMEN Ordering Facility: [facility] Address: [address] [place] [address] Performed By: #### L [id number] #### [facility] CLIA [id number] [address] [place] [address] [place] 3-Hydroxyisovalerate/C reatinine (U) [Molar ratio] 7.4 umol/mmolCr Normal 2.1-27.3 [facility] Comment on above: Order Comment: Speci men Type: URINE SPECIMEN Ordering Facility: [facility] Address: [address] [place] [address] Performed By: #### L [id number] #### [facility] CLIA [id number] [address] [place] [address] [place] 3-Methylcrotonylglycin e/Creatinine (U) [Molar ratio] <0.3 Normal <0.3 [facility] Comment on above: Order Comment: Speci men Type: URINE SPECIMEN Ordering Facility: [facility] Address: [address] [place] [address] Performed By: #### L [id number] #### [facility] CLIA [id number] [address] [place] [address] [place] 3-Methylglutaconate/Cr eatinine (U) [Molar ratio] 5.0 umol/mmolCr High 0.0-2.0 [facility] Comment on above: Order Comment: Speci men Type: URINE SPECIMEN Ordering Facility: [facility] Address: [address] [place] [address] Performed By: #### L [id number] #### [facility] CLIA [id number] [address] [place], [place] [id number] [place] 3-Methylglutarate/Crea tinine (U) [Molar ratio] 2.0 umol/mmolCr High 0.0-0.6 [facility] Comment on above: Order Comment: Speci men Type: URINE SPECIMEN Ordering Facility: [facility] Address: [address] [place] [address] Performed By: #### L [id number] #### [facility] CLIA [id number] [address] [place], [place] [address] [place] 4-Hydroxyphenylacetate /Creatinine (U) [Molar ratio] 27.9 umol/mmolCr Normal 5.7-147.5 [facility] Comment on above: Order Comment: Speci men Type: URINE SPECIMEN Ordering Facility: [facility] Address: [address] [place] [address] Performed By: #### L [id number] #### [facility] CLIA [id number] [address] [place], [place] [address] [place] 4-Hydroxyphenyllactate /Creatinine (U) [Molar ratio] 9.8 umol/mmolCr Normal 1.3-23.0 [facility] Comment on above: Order Comment: Speci men Type: URINE SPECIMEN Ordering Facility: [facility] Address: [address] [place] [address] Performed By: #### L [id number] #### [facility] CLIA [id number] [address] [place], [place] [address] [place] 4-Hydroxyphenylpyruvat e/Creatinine (U) [Molar ratio] 0.0 umol/mmolCr Normal <=0.0 [facility] Comment on above: Order Comment: Speci men Type: URINE SPECIMEN Ordering Facility: [facility] Address: [address] [place] [address] Performed By: #### L [id number] #### [facility] CLIA [id number] [address] [place], [place] [address] [place] 5-Oxoproline/Creatinin e (U) [Molar ratio] 2.4 umol/mmolCr Normal 0.4-3.1 [facility] Comment on above: Order Comment: Speci men Type: URINE SPECIMEN Ordering Facility: [facility] Address: [address] [place] [address] Performed By: #### L [id number] #### [facility] CLIA [id number] [address] [place] [address] [place] Acetoacetate/Creatinin e (U) [Molar ratio] <0.9 High 0.0-0.5 [facility] Comment on above: Order Comment: Speci men Type: URINE SPECIMEN Ordering Facility: [facility] Address: [address] [place] [address] Performed By: #### L [id number] #### [facility] CLIA [id number] [address] [place] [address] [place] Aconitate/Creatinine (U) [Molar ratio] 19.7 umol/mmolCr Normal 8.5-109.6 [facility] Comment on above: Order Comment: Speci men Type: URINE SPECIMEN Ordering Facility: [facility] Address: [address] [place] [address] Performed By: #### L [id number] #### [facility] CLIA [id number] [address] [place] [address] [place] Adipate/Creatinine (U) [Molar ratio] 2.5 umol/mmolCr Normal 0.3-9.2 [facility] Comment on above: Order Comment: Speci men Type: URINE SPECIMEN Ordering Facility: [facility] Address: [address] [place] [address] Performed By: #### L [id number] #### [facility] CLIA [id number] [address] [place] [address] [place] Alpha hydroxybutyrate/Creati nine (U) [Molar ratio] 1.2 umol/mmolCr Normal 0.0-2.7 [facility] Comment on above: Order Comment: Speci men Type: URINE SPECIMEN Ordering Facility: [facility] Address: [address] [place] [address] Performed By: #### L [id number] #### [facility] CLIA [id number] [address] [place] [address] [place] Alpha ketoglutarate/Creatini ne (U) [Molar ratio] 18.8 umol/mmolCr Normal 0.2-42.7 [facility] Comment on above: Order Comment: Speci men Type: URINE SPECIMEN Ordering Facility: [facility] Address: [address] [place] [address] Performed By: #### L [id number] #### [facility] CLIA [id number] [address] [place] [address] [place] Benzoate/Creatinine (U) [Molar ratio] <12.2 Normal 0.0-14.6 [facility] Comment on above: Order Comment: Speci men Type: URINE SPECIMEN Ordering Facility: [facility] Address: [address] [place] [address] Performed By: #### L [id number] #### [facility] CLIA [id number] [address] [place] [address] [place] Beta hydroxybutyrate/Creati nine (U) [Molar ratio] 2.7 umol/mmolCr High 0.1-2.6 [facility] Comment on above: Order Comment: Speci men Type: URINE SPECIMEN Ordering Facility: [facility] Address: [address] [place] [address] Performed By: #### L [id number] #### [facility] CLIA [id number] [address] [place] [address] [place] Butyrylglycine/Creatin ine (U) [Molar ratio] 0.0 umol/mmolCr Normal 0.0-0.7 [facility] Comment on above: Order Comment: Speci men Type: URINE SPECIMEN Ordering Facility: [facility] Address: [address] [place] [address] Performed By: #### L [id number] #### [facility] CLIA [id number] [address] [place] [address] [place] Creatinine (U) [Mass/Vol] 66.8 mg/dL Normal 42.2-237.9 [facility] Comment on above: Order Comment: Speci men Type: URINE SPECIMEN Ordering Facility: [facility] Address: [address] [place] [address] Performed By: #### L [id number] #### [facility] CLIA [id number] [address] [place] [address] [place] Ethylmalonate/Creatini ne (U) [Molar ratio] 2.9 umol/mmolCr Normal 0.5-6.2 [facility] Comment on above: Order Comment: Speci men Type: URINE SPECIMEN Ordering Facility: [facility] Address: [address] [place] [address] Performed By: #### L [id number] #### [facility] CLIA [id number] [address] [place] [address] [place] Fumarate/Creatinine (U) [Molar ratio] 1.2 umol/mmolCr Normal 0.3-2.6 [facility] Comment on above: Order Comment: Speci men Type: URINE SPECIMEN Ordering Facility: [facility] Address: [address] [place] [address] Performed By: #### L [id number] #### [facility] CLIA [id number] [address] [place] [address] [place] Glutarate/Creatinine (U) [Molar ratio] <0.1 Normal 0.0-1.4 [facility] Comment on above: Order Comment: Speci men Type: URINE SPECIMEN Ordering Facility: [facility] Address: [address] [place] [address] Performed By: #### L [id number] #### [facility] CLIA [id number] [address] [place] [address] [place] Hexanoylglycine/Creati nine (U) [Molar ratio] <0.1 Normal 0.0-0.1 [facility] Comment on above: Order Comment: Speci men Type: URINE SPECIMEN Ordering Facility: [facility] Address: [address] [place] [address] Performed By: #### L [id number] #### [facility] CLIA [id number] [address] [place] [address] [place] Isobutyrylglycine/Crea tinine (U) [Molar ratio] 0.2 umol/mmolCr Normal 0.0-1.2 [facility] Comment on above: Order Comment: Speci men Type: URINE SPECIMEN Ordering Facility: [facility] Address: [address] [place] [address] Performed By: #### L [id number] #### [facility] CLIA [id number] [address] [place] [address] [place] Isocitrate/Creatinine (U) [Molar ratio] 75.9 umol/mmolCr Normal 9.1-271.9 [facility] Comment on above: Order Comment: Speci men Type: URINE SPECIMEN Ordering Facility: [facility] Address: [address] [place] [address] Performed By: #### L [id number] #### [facility] CLIA [id number] [address] [place] [address] [place] Lactate/Creatinine (U) [Molar ratio] 16.7 umol/mmolCr Normal 2.9-47.2 [facility] Comment on above: Order Comment: Speci men Type: URINE SPECIMEN Ordering Facility: [facility] Address: [address] [place] [address] Performed By: #### L [id number] #### [facility] CLIA [id number] [address] [place] [address] [place] Malate/Creatinine (U) [Molar ratio] 2.3 umol/mmolCr High 0.0-1.1 [facility] Comment on above: Order Comment: Speci men Type: URINE SPECIMEN Ordering Facility: [facility] Address: [address] [place] [address] Performed By: #### L [id number] #### [facility] CLIA [id number] [address] [place] [address] [place] Malonate/Creatinine (U) [Molar ratio] 0.1 umol/mmolCr Normal 0.0-0.1 [facility] Comment on above: Order Comment: Speci men Type: URINE SPECIMEN Ordering Facility: [facility] Address: [address] [place] [address] Performed By: #### L [id number] #### [facility] CLIA [id number] [address] [place] [address] [place] Methylmalonate/Creatin ine (U) [Molar ratio] <0.4 Normal 0.0-0.6 [facility] Comment on above: Order Comment: Speci men Type: URINE SPECIMEN Ordering Facility: [facility] Address: [address] [place] [address] Performed By: #### L [id number] #### [facility] CLIA [id number] [address] [place] [address] [place] Methylsuccinate/Creati nine (U) [Molar ratio] 0.9 umol/mmolCr Normal 0.0-1.4 [facility] Comment on above: Order Comment: Speci men Type: URINE SPECIMEN Ordering Facility: [facility] Address: [address] [place] [address] Performed By: #### L [id number] #### [facility] CLIA [id number] [address] [place] [address] [place] N-acetylaspartate/Crea tinine (U) [Molar ratio] 1.6 umol/mmolCr Normal 0.1-8.9 [facility] Comment on above: Order Comment: Speci men Type: URINE SPECIMEN Ordering Facility: [facility] Address: [address] [place] [address] Performed By: #### L [id number] #### [facility] CLIA [id number] [address] [place] [address] [place] N-acetyltyrosine/Creat inine (U) [Molar ratio] 0.7 umol/mmolCr Normal 0.0-1.2 [facility] Comment on above: Order Comment: Speci men Type: URINE SPECIMEN Ordering Facility: [facility] Address: [address] [place] [address] Performed By: #### L [id number] #### [facility] CLIA [id number] [address] [place] [address] [place] Oxalate/Creatinine (U) [Molar ratio] 2.3 umol/mmolCr Normal 0.7-12.4 [facility] Comment on above: Order Comment: Speci men Type: URINE SPECIMEN Ordering Facility: [facility] Address: [address] [place] [address] Performed By: #### L [id number] #### [facility] CLIA [id number] [address] [place] [address] [place] Pyruvate/Creatinine (U) [Molar ratio] 0.5 umol/mmolCr Normal 0.1-2.6 [facility] Comment on above: Order Comment: Speci men Type: URINE SPECIMEN Ordering Facility: [facility] Address: [address] [place] [address] Performed By: #### L [id number] #### [facility] CLIA [id number] [address] [place] [address] [place] Sebacate (C8)/Creatinine (U) [Molar ratio] <3.4 High 0.0-0.3 [facility] Comment on above: Order Comment: Speci men Type: URINE SPECIMEN Ordering Facility: [facility] Address: [address] [place] [address] Performed By: #### L [id number] #### [facility] CLIA [id number] [address] [place] [address] [place] Suberate/Creatinine (U) [Molar ratio] 2.4 umol/mmolCr Normal 0.0-7.4 [facility] Comment on above: Order Comment: Speci men Type: URINE SPECIMEN Ordering Facility: [facility] Address: [address] [place] [address] Performed By: #### L [id number] #### [facility] CLIA [id number] [address] [place] [address] [place] Suberylglycine/Creatin ine (U) [Molar ratio] 0.0 umol/mmolCr Normal <=0.0 [facility] Comment on above: Order Comment: Speci men Type: URINE SPECIMEN Ordering Facility: [facility] Address: [address] [place] [address] Performed By: #### L [id number] #### [facility] CLIA [id number] [address] [place] [address] [place] Succinate/Creatinine (U) [Molar ratio] 4.6 umol/mmolCr Normal 0.3-27.4 [facility] Comment on above: Order Comment: Speci men Type: URINE SPECIMEN Ordering Facility: [facility] Address: [address] [place] [address] Performed By: #### L [id number] #### [facility] CLIA [id number] [address] [place] [address] [place] Succinylacetone/Creati nine (U) [Molar ratio] <0.4 Normal <0.4 [facility] Comment on above: Order Comment: Speci men Type: URINE SPECIMEN Ordering Facility: [facility] Address: [address] [place] [address] Performed By: #### L [id number] #### [facility] CLIA [id number] [address] [place] [address] [place] UOA CONSULTATION [facility] Comment on above: Order Comment: Speci men Type: URINE SPECIMEN Ordering Facility: [facility] Address: [address] [place] [address] Result Comment: This urinary organic acid analysis shows trace increased levels of methylglutarate, methylglutaconate and malate but is not diagnostic of a specific disorder. NOTE: The biochemical expression of urinary organic acids in the genetic organic acidurias can be dependent on the nutritional status of the subject, the underlying genetic abnormality that he/she may have, concurrent illnesses and other factors. This is also true for other disorders for which urinary organic acid analysis is sometimes a diagnostic tool such as disorders of mitochondrial oxidative phosphorylation, disorders of mitochondrial fatty acid beta-oxidation, and some nutritional deficiencies. Consequently and unless otherwise stated, a normal or non-diagnostic test result on urinary organic acid analysis does not always rule-out the possibility of the types of disorders noted above. This test was developed and its performance characteristics determined by the [facility] Neurometabolism [facility]. It has not been cleared or approved by the US Food and Drug Administration. The FDA had determined that such clearance or approval is not necessary. Performed By: #### L [id number] #### [facility] CLIA [id number] [address] [place] [address] [place] UOA REVIEW Reviewed by uJan Antonio León MD, Ph.D ([id number]) [facility] Comment on above: Order Comment: Speci men Type: URINE SPECIMEN Ordering Facility: [facility] Address: [address] [place] [address] Performed By: #### L [id number] #### [facility] CLIA [id number] [address] [place] [address] [place] Uracil/Creatinine (U) [Molar ratio] 2.1 umol/mmolCr Normal 0.0-5.1 [facility] Comment on above: Order Comment: Speci men Type: URINE SPECIMEN Ordering Facility: [facility] Address: [address] [place] [address] Performed By: #### L [id number] #### [facility] CLIA [id number] [address] [place] [address] [place] VOLTAGE GATED CA IGGon 08-15 P/Q-TYPE CALCIUM CHANNEL ANTIBODY 0.0 pmol/L Normal 0.0-24.5 [facility] Comment on above: Order Comment: Speci men Type: BLOOD SPECIMEN Ordering Facility: [facility] Address: [address] [place] [address] Result Comment: INTE RPRETIVE INFORMATION: P/Q-Type Calcium Channel Antibody 0.0 to 24.5 pmol/L ............. Negative 24.6 to 45.6 pmol/L ............ Indeterminate 45.7 pmol/L or greater.......... Positive This test was developed and its performance characteristics determined by [facility]. It has not been cleared or approved by the US Food and Drug Administration. This test was performed in a CLIA certified laboratory and is intended for clinical purposes. Performed By: [facility] [address] [place] [id number] Email Marketing Executive: Bc Calix MD, PhD CLIA Number: [id number] Performed By: #### C ARNPL #### [facility] CLIA [id number] [address] [place] [address] [place] VOLTAGE-GATED POTASSIUM AKBAR ABon 08-16-2023 VOLTAGE-GATED POTASSIUM CHANNEL AB, SER 0 pmol/L Normal 0-31 [facility] Comment on above: Order Comment: Speci men Type: BLOOD SPECIMEN Ordering Facility: [facility] Address: [address] [place] [address] Result Comment: INTE RPRETIVE INFORMATION: Voltage-Gated Potassium Channel (VGKC) Antibody, Serum Negative ....... 31 pmol/L or less Indeterminate... 32 - 87 pmol/L Positive ....... 88 pmol/L or greater Voltage-Gated Potassium Channel (VGKC) antibodies are associated with neuromuscular weakness as found in neuromyotonia (also known as Issacs syndrome) and Morvan syndrome. VGKC antibodies are also associated with paraneoplastic neurological syndromes and limbic encephalitis; however, VGKC antibody-associated limbic encephalitis may be associated with antibodies to leucine-rich, glioma-inactivated 1 protein (LGI1) or contactin-associated protein-2 (CASPR2) instead of potassium channel antigens. A substantial number of VGKC-antibody positive cases are negative for LGI1 and CASPR2 IgG autoantibodies, not all VGKC complex antigens are known. The clinical significance of this test can only be determined in conjunction with the patient's clinical history and related laboratory testing. This test was developed and its performance characteristics determined by [facility]. It has not been cleared or approved by the US Food and Drug Administration. This test was performed in a CLIA certified laboratory and is intended for clinical purposes. Performed By: [facility] [address] [place] [address] Email Marketing Executive: Bc Calix MD, PhD CLIA Number: [id number] Performed By: #### V GKCAB #### [facility] CLIA [id number] [address] [place] [address] XR ABDOMEN 1V SUPINEon 08-15 XR ABDOMEN 1V SUPINE * * *Final Report* * * DATE OF EXAM: Aug 16 2023 3:13PM SPX [id number] - XR ABDOMEN 1V SUPINE / PROCEDURE REASON: Chronic idiopathic constipation * * * * Physician Interpretation * * * * RESULT: EXAMINATION: XR ABDOMEN 1V SUPINE HISTORY: CHRONIC IDIOPATHIC CONSTIPATION Chronic idiopathic constipation . TECHNIQUE: XR ABDOMEN 1V SUPINE Laterality: NOT APPLICABLE Number of different views (projections): 1 M: XB_1 RESULT: Moderate stool burden. Gas and stool is seen within the rectum. There are no dilated loops of bowel to suggest obstruction. There is scoliosis of the spine. Facet hypertrophic degenerative change is seen within the lower lumbar spine. Mild bilateral hip DJD. Sacroiliac joint spaces are grossly preserved. Surgical clips in the right upper quadrant. A few phleboliths are incidentally noted. IMPRESSION: Moderate stool burden. No convincing radiographic evidence for bowel obstruction. Transcribed Using Voice Recognition Transcribe Date/Time: Aug 16 2023 3:52P Dictated by: TIGRE BARRETT MD This examination was interpreted and the report reviewed and electronically signed by: TIGRE BARRETT MD on Aug 16 2023 3:53PM EST [id number] [facility] XR Abdomen Supine and Uprigh ton 08-16-2023 [facility] AERICVISon 08-13-2023 A.OFFVIS [facility] [address] [place], [place] [id number] Office Visit Report Signed Patient Name: Sherry Ash [id number] Date of : 1945 Age/Sex: 77 / F Date of Service: Location: [facility] [place] Attending physician: Nicole Garcia DO Intake Vital Signs 08/13/23 14:43 08/13/23 14:45 Height 5 ft 2 in Weight 146 lb 8 oz BMI 26.8 BP 112/74 112/74 BP Location Right Brachial BP Position Sitting BP Cuff Size Adult BP Source Manual Cuff Respiration 18 Pulse 68 Pulse Source Monitor Temp 98.6 F Temp Source Temporal Artery Scan Pulse Oximetry (%) 96 Oxygen Delivery Method Room Air Intake Visit Reasons: 3 Month Allergies Allergy/AdvReac Type Severity Reaction Status Date / Time oxycodone Allergy Severe Headache Verified 08/13/23 14:38 Iodinated Contrast Media Allergy Mild headache, Verified 08/13/23 14:38 burning skin Penicillins Allergy Mild Rash Verified 08/13/23 14:38 Quinolones Allergy Mild Rash Verified 08/13/23 14:38 moxifloxacin Allergy Unknown Unknown Verified 08/13/23 14:38 doxycycline AdvReac Intermediate TEARS UP Verified 08/13/23 14:38 STOMACH- CAUSES ALOT OF PAIN hydrocodone AdvReac Intermediate vomiting, Verified 08/13/23 14:38 headache nitrofurantoin AdvReac Intermediate Vomiting Verified 08/13/23 14:38 [From Macrobid] albuterol AdvReac Mild HEADACHE,NA Verified 08/13/23 14:38 USEA bee venom protein (honey bee) AdvReac Mild swelling, Verified 08/13/23 14:38 vomiting calcium AdvReac Mild GI upset Verified 08/13/23 14:38 fluconazole AdvReac Mild Headache Verified 08/13/23 14:38 Current Medication List - Last Reconciled 08/13/23 by Alma Rodriguez alprazolam 0.25 mg tablet 0.25 mg PO BID PRN 30 days cholecalciferol (vitamin D3) 50 mcg (2,000 unit) capsule 50 mcg PO DAILY fluticasone propionate 50 mcg/actuation nasal spray,suspension 1 spray Nostril-both DAILY loratadine 10 mg tablet 10 mg PO DAILY metoclopramide HCl 10 mg tablet (Reglan) 10 mg PO BID 3 weeks pantoprazole 40 mg tablet,delayed release 40 mg PO BID rosuvastatin 40 mg tablet 40 mg PO DAILY sucralfate 1 gram tablet (Carafate) 1 GM PO Q6H PRN venlafaxine 37.5 mg capsule,extended release 24 hr 37.5 mg PO DAILY 90 days NS Nurse's Note: Pt here for 3 month f/u visit. Pt states Noah is helping with N/V. Pt states she is going to [facility] Wednesday to see Dr. Awan, she was referred there from Dr. Noble. Pt also has c/o burning with urination. PFSH PFSH Medical History Abnormal mammogram Adult hypothyroidism Anxiety Aortic heart murmur Back pain Bilateral tinnitus Breast cancer screening by mammogram Bronchitis Cataracts, bilateral Chronic pain of left ankle Congenital ureteropelvic junction obstruction Constipation Dyslipidemia Fracture of left ankle Gastritis GERD (gastroesophageal reflux disease) Granulomatous disease Heart murmur High cholesterol HTN (hypertension), benign Hydronephrosis Mitral regurgitation Nonspecific ST-T wave electrocardiographic changes Osteoporosis Pancreatitis Pneumonia Seasonal allergies UPJ (ureteropelvic junction) obstruction Surgical History H/O bladder repair surgery History of appendectomy Hx of cataract surgery Hx of cholecystectomy Hx of hysterectomy Family History Father No problems noted. Mother No problems noted. Social History Social History History Provided by: Patient Living Situation History Usual Living Arrangement: Alone Anyone at Home Need Help While Hospitalized: No Tobacco History Smoking Status: Former Smoker (Quit 1997) Years Smoked: 38 Packs Per Day: 1 Do you Vape?: No Other Form of Tobacco Used: Never Used Second Hand Tobacco Smoke Exposure: No AUDIT-C How Often do you Have a Drink Containing Alcohol: Never How Many Standard Drinks Containing Alcohol do you Have on a Typical Day: None How Often do you Have Six or More Drinks on One Occasion: Never AUDIT-C Alcohol Total Score: 0 Substance Use History Caffeine Use: Yes Non-Prescribed Substance Use: Denies Use Has Patient Ever Been Admitted to Treatment Facility for Alcohol/Drug Abuse: No Abuse History of Physical Abuse: No History of Emotional Abuse: No History of Sexual Abuse: No Suspect/Identified Abuse: No Provider Notified of Abuse or Suspected Abuse: No HPI 3 Month HPI Details Patient presents for 3-month follow-up. Anxiety: She is on PRN/twice daily alprazolam low-dose 0.25 mg as well as Effexor ER 37.5 mg; has failed other medication in the past for (more content not included)... Normal [facility] - Chemistry and C hemistry - challengeon 08-13-2023 Bilirubin Ql (U) Negative [facility] Glucose Ql (U) Negative [facility] Ketones Ql (U) Negative [facility] pH (U) 6.5 [pH] [facility] Specific gravity (U) [Rel density] 1.015 [facility] Urobilinogen (U) [Mass/Vol] 0.2 mg/dL [facility] - Specimen inform ationon 08-13-2023 Appearance (U) clear [facility] Color (U) Yellow [facility] - Urinalysison Leukocyte esterase Test strip Ql (U) Moderate [facility] Nitrite Ql (U) Negative [facility] Protein Ql (U) Negative [facility] No Panel Informationon 08-12 Urine Occult Blood Negative [facility] Urine culture routineOrdered By: Nicole Garcia on 08-13-2023 Bacteria identified Cx Nom (U) Escherichia coli Abnormal [facility] Bacteria identified Cx Nom (U) Strep agalactiae - (group b) Abnormal [facility] CNPNon 08-12-2023 CNPN Telephone (GASTSP) -- SHERRY ASH ([id number]) 1945 F Date Time Provider Department 08/12/23 MATEO MIHIR Moura JIM During your visit today, we recorded the following information about you: Marcos Ramirez RN 08/12/2023 2:22 PM Signed SPECIALTY CARE COORDINATION CHART REVIEW Contacted patient regarding upcoming appointment in the [facility]is [facility]. No answer. Message and call back number provided. Patient identified for Care Coordination from: gastroparesis diagnosis Last PCP office visit: Visit date not found Next OV: 08/16/2023 CHRONIC DX: Gastroparesis Records Reviewed records and summarized for upcoming appointment in the gastroparesis clinic. CARE COORDINATION OUTREACH PLAN: New patient call - awaiting call back. Marcos Ramirez RN August 12, 2023 Allergies As of Date: 08/12/2023 (Not on File) Date Reviewed: Never Reviewed Reason for Visit: Care Coordination [3491] Cmt: Gastroparesis clinic: chart review; new patient call - no answer. Problem List As Of Date: 08/12/2023 (None) Encounter Status:Closed by MARCOS RAMIREZ on 08/12/23 Normal [facility] PTH, INTACTon 08-05-2023 PTH, INTACT 25 pg/mL Normal 14-64 [facility] Comment on above: Result Comment: Inte rpretive Guide Intact PTH Calcium Normal Parathyroid Normal Normal Hypoparathyroidism Low or Low Normal Low Hyperparathyroidism Primary Normal or High High Secondary High Normal or Low Tertiary High High Non-Parathyroid Hypercalcemia Low or Low Normal High For additional information, please refer to [email or web address] (This link is being provided for informational/ educational purposes only.) Test Performed by Greg Obrien, [facility], [address] [place] [address] Srikanth Fuller M.D., Ph.D., Director of Laboratories , [place] [id number] Performed By: #### U AREFLEX #### [facility] [address] [place] [address] Urine Cultureon 08-05-2023 Bacteria identified Cx Nom (U) Urine Culture Comment verbal consent given RESResult: PCRPossible contamination, suggest recollection Normal [facility] Comment on above: Performed By: #### U AREFLEX #### [facility] [address] [place] [address] A.OFFVISon 08-03-2023 A.OFFVIS [facility] [address] [place] [address] Office Visit Report Signed Patient Name: Sherry Ash [id number] Date of : 1945 Age/Sex: 77 / F Date of Service: Location: [facility] Care Attending physician: Tisha DIOP Intake Vital Signs 08/03/23 15:00 BP 94/52 L Respiration 18 Pulse 71 Temp 98.6 F Pulse Oximetry (%) 98 Intake Visit Reasons: Stomach Pain, Possible Kidney Infection Allergies Allergy/AdvReac Type Severity Reaction Status Date / Time oxycodone Allergy Severe Headache Verified 08/03/23 14:54 Iodinated Contrast Media Allergy Mild headache, Verified 08/03/23 14:54 burning skin Penicillins Allergy Mild Rash Verified 08/03/23 14:54 Quinolones Allergy Mild Rash Verified 08/03/23 14:54 moxifloxacin Allergy Unknown Unknown Verified 08/03/23 14:54 doxycycline AdvReac Intermediate TEARS UP Verified 08/03/23 14:54 STOMACH- CAUSES ALOT OF PAIN hydrocodone AdvReac Intermediate vomiting, Verified 08/03/23 14:54 headache nitrofurantoin AdvReac Intermediate Vomiting Verified 08/03/23 14:54 [From Macrobid] albuterol AdvReac Mild HEADACHE,NA Verified 08/03/23 14:54 USEA bee venom protein (honey bee) AdvReac Mild swelling, Verified 08/03/23 14:54 vomiting calcium AdvReac Mild GI upset Verified 08/03/23 14:54 fluconazole AdvReac Mild Headache Verified 08/03/23 14:54 Current Medication List - Last Reconciled 08/03/23 by Nina Mendoza alprazolam 0.25 mg tablet 0.25 mg PO BID PRN 30 days cholecalciferol (vitamin D3) 50 mcg (2,000 unit) capsule 50 mcg PO DAILY fluticasone propionate 50 mcg/actuation nasal spray,suspension 1 spray Nostril-both DAILY loratadine 10 mg tablet 10 mg PO DAILY metoclopramide HCl 10 mg tablet (Reglan) 10 mg PO BID 3 weeks pantoprazole 40 mg tablet,delayed release 40 mg PO BID rosuvastatin 40 mg tablet 40 mg PO DAILY sucralfate 1 gram tablet (Carafate) 1 GM PO Q6H PRN venlafaxine 37.5 mg capsule,extended release 24 hr 37.5 mg PO DAILY 90 days NS Nurse's Note: started last week with lot of gas and constipated, last good bm month ago having stools but very small has to use suppository, no nauseated burping some , feels bloated, PFSH PFSH Medical History Abnormal mammogram Adult hypothyroidism Anxiety Aortic heart murmur Back pain Bilateral tinnitus Breast cancer screening by mammogram Bronchitis Cataracts, bilateral Chronic pain of left ankle Congenital ureteropelvic junction obstruction Constipation Dyslipidemia Fracture of left ankle Gastritis GERD (gastroesophageal reflux disease) Granulomatous disease Heart murmur High cholesterol HTN (hypertension), benign Hydronephrosis Mitral regurgitation Nonspecific ST-T wave electrocardiographic changes Osteoporosis Pancreatitis Pneumonia Seasonal allergies UPJ (ureteropelvic junction) obstruction Surgical History H/O bladder repair surgery History of appendectomy Hx of cataract surgery Hx of cholecystectomy Hx of hysterectomy Family History Father No problems noted. Mother No problems noted. Urgent Care Social History Social History History Provided by: Patient Living Situation History Usual Living Arrangement: Alone Anyone at Home Need Help While Hospitalized: No Tobacco History Smoking Status: Former Smoker Years Smoked: 38 Packs Per Day: 1 Other Form of Tobacco Used: Never Used Second Hand Tobacco Smoke Exposure: No AUDIT-C How Often do you Have a Drink Containing Alcohol: Never How Many Standard Drinks Containing Alcohol do you Have on a Typical Day: None How Often do you Have Six or More Drinks on One Occasion: Never AUDIT-C Alcohol Total Score: 0 Substance Use History Caffeine Use: Yes Non-Prescribed Substance Use: Denies Use Has Patient Ever Been Admitted to Treatment Facility for Alcohol/Drug Abuse: No Abuse History of Physical Abuse: No History of Emotional Abuse: No History of Sexual Abuse: No Suspect/Identified Abuse: No Provider Notified of Abuse or Suspected Abuse: No HPI HPI Comments History of Present Illness Details Patient is a pleasant 77-year-old female who presents today complaining of intermittent dysuria x 1 week. No hematuria, fever. She has hx of recurrent UTIs. She has been having abdominal bloating and poor appetite. She has been struggling with constipation x 6-7 months and takes miralax daily and utilizes suppositories intermittently. She reports worsening constipation over the past 1 week. She reports her last BM to be yesterday and describes it to be small. PMhx significa (more content not included)... Normal [facility] 08-03-2023 KUB [facility] Orthopedics/Urg ent Care [address] [place] [address] XRay Report Signed Patient Name: Sherry Ash Date of : 1945 Account #:[id number] Age/Sex: 77 / F Location: [facility]RGENT[facility] Attending physician: Tisha DIOP Ordering Provider: CHIKIS Velasco Date of Service: 08/03/23 Procedure(s): XR KUB HISTORY: Constipation, evaluate for bowel obstruction. Time: 15:00 on 08/03/2023 Comparison: 07/06/2014 examination Two AP views of the abdomen FINDINGS: [id number] volume retained fecal content scattered in the colon. The bowel gas pattern is nonspecific, nonobstructive. There is rectal gas. Surgical clips are evident in the right upper quadrant suggesting prior cholecystectomy. Bony degenerative changes are evident in the lower lumbar spine. No free air. No acute bony abnormalities. IMPRESSION: Nonspecific, nonobstructive bowel gas pattern. Gas is seen in nondilated small bowel and colonic loops scattered in the abdomen. There is distal rectal gas. Moderate to large volume retained fecal content scattered in the colon compatible with given history of constipation. Lower lumbar spine degenerative changes. Dictated By: Jose Daniel Carlin MD Signed By: 08/05/23 1205 DD/ 1527 TD/TT: 08/04/23 0813 Impregnator And Drier Helper: LLUVIA Exam/Order Verified? Y Exam Explained to Patient/Family? Y Was Patient Shielded? N Is Patient ? Consent Form Completed? Hx Last Menstrual Period: Does Patient have a Diabetic Device? Diabetic Device Type: Was the Diabetic Device Removed? If NO: was Removal Consent form completed? Patient was informed of radiation exposure prior to scan? Y Verified by Technologist:DEAN Comment: [id number] cc: CHIKIS Velasco, DO Normal [facility] - Chemistry and C hemistry - challengeon 08-03-2023 Bilirubin Ql (U) Negative [facility] Glucose Ql (U) Negative [facility] Ketones Ql (U) Negative [facility] pH (U) 5.5 [pH] [facility] Specific gravity (U) [Rel density] 1.020 [facility] Urobilinogen (U) [Mass/Vol] 0.2 mg/dL [facility] Laboratory - Specimen inform ationon 08-03-2023 Appearance (U) clear [facility] Color (U) Yellow [facility] Laboratory - Urinalysison Leukocyte esterase Test strip Ql (U) Trace [facility] Nitrite Ql (U) Negative [facility] Protein Ql (U) Negative [facility] No Panel Informationon 08-02 Urine Occult Blood Negative [facility] Urine culture routineOrdered By: Tisha Lopez on 08-03-2023 Bacteria identified Cx Nom (U) [facility] Comprehensive Metabolic Pane [place] 08-02-2023 Albumin [Mass/Vol] 4.2 g/dL Normal 3.2-4.6 [facility] Comment on above: Performed By: #### C M, VITD #### [facility] [address] [place] [address] ALP [Catalytic activity/Vol] 58 U/L Normal 40-150 [facility] Comment on above: Performed By: #### C M, VITD #### [facility] [address] [place] [address] ALT [Catalytic activity/Vol] 18 U/L Normal 0-55 [facility] Comment on above: Performed By: #### Samina Manning, VITD #### [facility] [address] [place] [address] Anion gap [Moles/Vol] 9 mmol/L Normal 5-13 [facility] Comment on above: Performed By: #### Samina Manning, VITD #### [place] [address] [place] [address] AST [Catalytic activity/Vol] 23 U/L Normal 5-34 [facility] Comment on above: Performed By: #### Samina Manning, VITD #### [place] [address] [place] [address] Bilirubin [Mass/Vol] 0.7 mg/dL Normal 0.0-1.0 [facility] Comment on above: Performed By: #### Samina Manning, VITD #### [place] [address] [place] [address] Calcium [Mass/Vol] 9.5 mg/dL Normal 8.4-10.2 [facility] Comment on above: Performed By: #### Samina Manning, VITD #### [place] [address] [place] [address] Chloride [Moles/Vol] 104 mmol/L Normal 98-107 [facility] Comment on above: Performed By: #### Samina Mnaning, VITD #### [place] [address] [place] [address] CO2 [Moles/Vol] 26 mmol/L Normal 23-31 [facility] Comment on above: Performed By: #### Samina Manning, VITD #### [place] [address] [place] [address] Creatinine [Mass/Vol] 1.01 mg/dL Normal 0.57-1.11 [facility] Comment on above: Performed By: #### Samina Manning, VITD #### [place] [address] [place] [address] Glomerular Filtration Rate 56 Low mL/min/1.7 3m2 [facility] Comment on above: Performed By: #### Samina Manning, VITD #### [facility] [address] [place] [address] Glucose [Mass/Vol] 95 mg/dL Normal 70-100 [facility] Comment on above: Performed By: #### Samina Manning, VITD #### [place] [address] [place] [address] Potassium [Moles/Vol] 4.2 mmol/L Normal 3.5-5.1 [facility] Comment on above: Performed By: #### Samina Manning, VITD #### [place] [address] [place] [address] Protein [Mass/Vol] 6.7 g/dL Normal 6.4-8.2 [facility] Comment on above: Performed By: #### Samina Manning, VITD #### [place] [address] [place] [address] Sodium [Moles/Vol] 139 mmol/L Normal 136-145 [facility] Comment on above: Performed By: #### Samina Manning, VITD #### [place] [address] [place] [address] Urea nitrogen [Mass/Vol] 18 mg/dL Normal 7-18 [facility] Comment on above: Performed By: #### Samina Manning, VITD #### [place] [address] [place] [address] Histamine release from basop hils measurementOrdered By: Joy Wan on 08-02-2023 Chloride [Moles/Vol] 104 mmol/L 98-107 [facility] Creatinine [Mass/Vol] 1.01 mg/dL 0.57-1.11 [facility] Histamine release from basophils measurement 56 Low mL/min/1.7 3m2 [facility] Laboratory - Chemistry and C hemistry - challengeOrdered By: Joy Wan on 08-02-2023 ALP [Catalytic activity/Vol] 58 U/L 40-150 [facility] ALT [Catalytic activity/Vol] 18 U/L 0-55 [facility] Anion gap [Moles/Vol] 9 mmol/L 5-13 [facility] AST [Catalytic activity/Vol] 23 U/L 5-34 [facility] Calcium [Mass/Vol] 9.5 mg/dL 8.4-10.2 [facility] CO2 [Moles/Vol] 26 mmol/L 23-31 [facility] Glucose [Mass/Vol] 95 mg/dL 70-100 [facility] No Panel InformationOrdered By: Joy Wan on 08-02-2023 Parathyroid Hormone (Intact) 25 pg/mL 14-64 [facility] Comment on above: Interpretive Guide I ntact PTH CalciumNormal Parathyroid Normal NormalHypoparathyroidism Low or Low Normal LowHyperparathyroidism Primary Normal or High High Secondary High Normal or Low Tertiary High HighNon-Parathyroid Hypercalcemia Low or Low Normal HighFor additional information, please refer [email or web address](This link is being provided for informational/educational purposes only.)Test Performed by [facility],[address] [place] [id number] Fuller M.D., Ph.D., Director of [phone], CLIA [id number] Vitamin D 25-Hydroxy 58.5 ng/mL 30.0-100.0 [facility] Serum or plasma bilirubin me asurement (mass/volume)Ordered By: Joy Wan on 08-02-2023 Bilirubin [Mass/Vol] 0.7 mg/dL 0.0-1.0 [facility] Serum or plasma potassium me asurement (moles/volume)Ordered By: Joy Wan on 08-02-2023 Potassium [Moles/Vol] 4.2 mmol/L 3.5-5.1 [facility] Serum total protein measurem ent (mass/volume)Ordered By: Joy Wan on 08-02-2023 Protein [Mass/Vol] 6.7 g/dL 6.4-8.2 [facility] Thin prep Papanicolaou smear with manual screeningOrdered By: Joy Wan on 08-02-2023 Thin prep Papanicolaou smear with manual screening 18 mg/dL 7-18 [facility] Thin prep Papanicolaou smear with manual screening 4.2 g/dL 3.2-4.6 [facility] Venous blood sodium measurem entOrdered By: Joy Wan on 08-02-2023 Sodium (BldV) [Moles/Vol] 139 mmol/L 136-145 [facility] Vitamin D 25-OHon 08-02-2023 Vitamin D 25-OH 58.5 ng/mL Normal 30.0-100.0 [facility] Comment on above: Performed By: #### U AREFLEX #### [facility] [address] [place] [address] Maryam 06-23-2023 CNPN Telephone (GASTSP) -- SHERRY ASH ([id number]) 1945 F Date Time Provider Department 06/23/23 MIHIR AWAN GASTSP During your visit today, we recorded the following information about you: Vance Allen 06/23/2023 9:21 AM Signed ----- Message from Caroline Plasencia sent at 06/14/2023 12:32 PM EST ----- Regarding: Gastro for Gastroparesis Sherry Ash is being referred to or the Gastroparesis clinic. Referring Physician: Taty Noble CNP Has the patient had a Gastric Emptying Study? UNSURE Which facility or hospital was the Gastric Emptying Study done at (please list full name of hospital or facility)? N/A If the patient had a gastric emptying study were the results abnormally delayed? N/A Has the patient had a Smart Pill? No Has the patient had Gastric Bypass? No Has the patient had a Gastric Sleeve? No Has the patient had a Maribell/Hiatal Hernia/Repair? No Has the patient had POP/Pyloroplasty? No Is the patient currently on TPN? No Does the patient have a G/J Tube?No Preferred phone number for contact: [phone] HOME ? Send to GASTROPARESIS SCHEDULING POOL [[phone]] Vance Allen 06/23/2023 9:25 AM Signed Left VM for patient to call office to update registration and go over records needed for review prior to scheduling. Vance Allen 06/29/2023 1:21 PM Signed 2nd attempt to contact patient in regards to updating reg and reviewing records needed. Vance Allen 07/07/2023 7:24 AM Addendum Gastric Emptying Study? Yes Has the patient had a Smart Pill? yes Has the patient had Gastric Bypass? No Has the patient had a Gastric Sleeve? No Has the patient had a Maribell or Hiatal Hernia Repair? Appendix and Gallbladder: 7 yrs Hysterectomy: 35 yrs Has the patient had POP/Pyloroplasty? No Is the patient currently on TPN? No Does the patient have a G/J Tube? No Referring Provider: Taty Noble COSMETIC SURGEON Records in scanned documents Mihir Awan DO 07/07/2023 12:47 PM Signed Me and surgery, alfreda is in Mihir Awan DO 07/07/2023 12:47 PM Signed Addended by: MIHIR AWAN on: 07/07/2023 12:47 PM Modules accepted: Orders Vance Allen 07/13/2023 3:58 PM Signed Patient is scheduled. Allergies As of Date: 06/23/2023 (Not on File) Date Reviewed: Never Reviewed Reason for Visit: Appointment [186] Primary Visit Diagnosis:Gastroparesis [K31.84] Order(s):EGG (ELECTROGASTROGRAPHY) [25338EBG] Order #: [id number] Problem List As Of Date: 06/23/2023 (None) Encounter Status:Closed by VANCE ALLEN on 06/23/23 [facility] Colin 05-14-2023 [facility] [address] [place] [address] Office Visit Report Signed Patient Name: Sherry Ash [id number] Date of : 1945 Age/Sex: 77 / F Date of Service: Location: [facility] [place] Attending physician: Nicole Garcia DO Intake Vital Signs 05/14/23 13:25 05/14/23 13:29 Height 5 ft 2 in Weight 139 lb 8 oz BMI 25.4 BP 108/70 108/70 BP Location Right Brachial BP Position Sitting BP Cuff Size Adult BP Source Manual Cuff Respiration 18 Pulse 87 Pulse Source Monitor Temp 98.6 F Temp Source Temporal Artery Scan Pulse Oximetry (%) 95 Oxygen Delivery Method Room Air Intake Visit Reasons: 3 month f/u Allergies Allergy/AdvReac Type Severity Reaction Status Date / Time oxycodone Allergy Severe Headache Verified 05/14/23 13:26 Iodinated Contrast Media Allergy Mild headache, Verified 05/14/23 13:26 burning skin Penicillins Allergy Mild Rash Verified 05/14/23 13:26 Quinolones Allergy Mild Rash Verified 05/14/23 13:26 moxifloxacin Allergy Unknown Unknown Verified 05/14/23 13:26 doxycycline AdvReac Intermediate TEARS UP Verified 05/14/23 13:26 STOMACH- CAUSES ALOT OF PAIN hydrocodone AdvReac Intermediate vomiting, Verified 05/14/23 13:26 headache nitrofurantoin AdvReac Intermediate Vomiting Verified 05/14/23 13:26 [From Macrobid] albuterol AdvReac Mild HEADACHE,NA Verified 05/14/23 13:26 USEA bee venom protein (honey bee) AdvReac Mild swelling, Verified 05/14/23 13:26 vomiting calcium AdvReac Mild GI upset Verified 05/14/23 13:26 fluconazole AdvReac Mild Headache Verified 05/14/23 13:26 Current Medication List - Last Reconciled 05/14/23 by Alma Rodriguez alprazolam 0.25 mg tablet 0.25 mg PO BID PRN 30 days cholecalciferol (vitamin D3) 50 mcg (2,000 unit) capsule 50 mcg PO DAILY fluticasone propionate 50 mcg/actuation nasal spray,suspension 1 spray Nostril-both DAILY loratadine 10 mg tablet 10 mg PO DAILY pantoprazole 40 mg tablet,delayed release 40 mg PO BID rosuvastatin 40 mg tablet 40 mg PO DAILY sertraline 100 mg tablet 100 mg PO DAILY sucralfate 1 gram tablet (Carafate) 1 GM PO Q6H PRN Nurse's Note: Pt here with complaint of mid-abdominal pain/burning sensation and burping for 3 weeks. Pt states yesterday she started taking Carafate every 6 hours to help with nausea. Pt has appointment with GI on 06/07/23. PFSH PFS Medical History Abnormal mammogram Adult hypothyroidism Anxiety Aortic heart murmur Back pain Bilateral tinnitus Breast cancer screening by mammogram Bronchitis Cataracts, bilateral Chronic pain of left ankle Congenital ureteropelvic junction obstruction Constipation Dyslipidemia Fracture of left ankle Gastritis GERD (gastroesophageal reflux disease) Granulomatous disease Heart murmur High cholesterol HTN (hypertension), benign Hydronephrosis Mitral regurgitation Nonspecific ST-T wave electrocardiographic changes Osteoporosis Pancreatitis Pneumonia Seasonal allergies UPJ (ureteropelvic junction) obstruction Surgical History H/O bladder repair surgery History of appendectomy Hx of cataract surgery Hx of cholecystectomy Hx of hysterectomy Family History Father No problems noted. Mother No problems noted. Social History Social History History Provided by: Patient Living Situation History Usual Living Arrangement: Alone Anyone at Home Need Help While Hospitalized: No Tobacco History Smoking Status: Former Smoker Years Smoked: 38 Packs Per Day: 1 Do you Vape?: No Other Form of Tobacco Used: Never Used Second Hand Tobacco Smoke Exposure: No AUDIT-C How Often do you Have a Drink Containing Alcohol: Never How Many Standard Drinks Containing Alcohol do you Have on a Typical Day: None How Often do you Have Six or More Drinks on One Occasion: Never AUDIT-C Alcohol Total Score: 0 Substance Use History Caffeine Use: Yes Non-Prescribed Substance Use: Denies Use Has Patient Ever Been Admitted to Treatment Facility for Alcohol/Drug Abuse: No Abuse History of Physical Abuse: No History of Emotional Abuse: No History of Sexual Abuse: No Suspect/Identified Abuse: No Provider Notified of Abuse or Suspected Abuse: No HPI 3 month f/u HPI Details MOOD: - Taking Zoloft 150mg (1.5 tabs) daily [not on eff exor]. - On alprazolam 0.25mg BID PRN, usually takes twic e daily. [place]ARRS reviewed, last fill 04/19/23 and will be due for refill soon. PHQ-9 score today was 22 -- severe depression, and did adriana that nearly every day she (more content not included)... Normal [facility] Urine Cultureon 04-14-2023 Bacteria identified Cx Nom (U) Urine Culture ESCCOLEscherichia coliEscherichia coli CCColony Count >100,000 ORGANISM ID: 1.1 ANTIBIOTIC INTERPRETATION SIL STATUS S 4 F S <=2 F S <=4 F S <=0.12 F - NEG F S <=0.25 F S <=0.25 F S <=0.12 F S <=1 F S <=0.25 F S <=0.12 F S <=16 F S <=20 F S <=4 F Normal [facility] Comment on above: Performed By: #### U R #### ML , Rojas 04-12-2023 [place] [address] [place] Scan Report Signed Patient Name: Sherry Ash Date of : 1945 Account #:[id number] Age/Sex: 77 / F Location: ED Attending physician: Ordering Provider: Ricky Singh MD Date of Service: 04/12/23 Procedure(s): CT abd/pel wo con HISTORY: Generalized abdominal pain with nausea and constipation. Prior hysterectomy, cholecystectomy and appendectomy Time: 9:52 a.m. on 04/12/2023. Comparison: 08/24/2022 CT scan. TECHNIQUE: Axial images were obtained from the dome of the diaphragm down to the symphysis pubis without oral or IV contrast. Coronal and sagittal reconstruction imaging was performed. Coronal MPR images were reconstructed from the 3D data set. Individualized dose optimization techniques were used for the CT scan. Findings: The lung bases are clear. The spleen remains mildly prominent, unchanged. Spine and liver calcifications consistent with prior granulomatous disease exposure redemonstrated. The liver otherwise appears within normal limits. There has been prior cholecystectomy. Findings of chronic UPJ stenosis are redemonstrated with chronic, severe bilateral hydronephrosis without ureteral dilatation. No ureteral stones. The urinary bladder appears within normal limits. There is sigmoid colonic diverticulosis without CT evidence for diverticulitis The bowel gas pattern is nonobstructive. Impression: Chronic bilateral severe hydronephrosis. This has been seen and described on multiple prior studies and is consistent with chronic bilateral UPJ stenosis. Sigmoid colonic diverticulosis without CT evidence for diverticulitis. Heavy vascular calcifications. No convincing acute abnormalities of the abdomen/pelvis. Dictated By: Jose Daniel Carlin MD Signed By: 04/12/23 1024 DD/ 1020 TD/TT: 04/12/23 1020 Impregnator And Drier Helper: [facility] Exam/Order Verified? Y Exam Explained to Patient/Family? Y Was Patient Shielded? N Is Patient ? Consent Form Completed? Hx Last Menstrual Period: Does Patient have a Diabetic Device? No Diabetic Device Type: Was the Diabetic Device Removed? If NO: was Removal Consent form completed? Patient was informed of radiation exposure prior to scan? Verified by Technologist:[id number] Comment: [id number] cc: DO Ricky Bustos MD Normal [facility] Basophils Auto (Bld) [#/Vol] Ordered By: Ricky Singh on 04-12-2023 Basophils (Bld) [#/Vol] 0.0 10'3/uL Low 0.1-0.2 [facility] Basophils/100 WBC Auto (Bld) Ordered By: Ricky Singh on 04-12-2023 Basophils/100 WBC (Bld) 1 % 0-1 [facility] Cardiac Profile #1on 023 Troponin I.cardiac [Mass/Vol] ng/mL Low 0.010-0.04 5 [facility] Comment on above: Performed By: #### C Nigel CP1, LIP #### [facility] [address] [place] [address] CK [Catalytic activity/Vol] 73 U/L Normal 29-168 [facility] Comment on above: Performed By: #### C Nigel CP1, LIP #### [facility] [address] [place] [address] CK.MB [Mass/Vol] 1.1 ng/mL Normal 1.0-3.6 [facility] Comment on above: Performed By: #### C M, CP1, LIP #### [facility] [address] [place] [address] Complete Blood Count with Di ffon 04-12-2023 Basophils Absolute Auto 0.0 10'3/uL Low 0.1-0.2 [facility] Comment on above: Performed By: #### C BCD #### [place] [address] [facility] [place] [address] Basophils/100 WBC (Bld) 1 % Normal 0-1 [facility] Comment on above: Performed By: #### C BCD #### [place] [address] [facility] [place] [facility] [place] [address] Eosinophils Absolute Auto 0.1 10'3/uL Normal 0.0-0.4 [facility] Comment on above: Performed By: #### C BCD #### [place] [address] [facility] [place] [address] Eosinophils/100 WBC (Bld) 2 % Normal 2-5 [facility] Comment on above: Performed By: #### C BCD #### [place] [address] [facility] [place] [address] Erythrocyte distribution width (RBC) [Ratio] 13.9 % Normal 12.2-15.8 [facility] Comment on above: Performed By: #### C BCD #### [place] [address] [facility] [place] [address] Hematocrit (Bld) [Volume fraction] 31.3 % Low 34.6-44.1 [facility] Comment on above: Performed By: #### C BCD #### [place] [address] [facility] [place] [address] Hemoglobin (Bld) [Mass/Vol] 10.5 g/dL Low 11.7-14.9 [facility] Comment on above: Performed By: #### C BCD #### [facility] [address] [place] [address] Lymphocytes Absolute Auto 0.6 10'3/uL Normal 0.5-3.5 [facility] Comment on above: Performed By: #### C BCD #### [facility] [address] [place] [address] Lymphocytes/100 WBC (Bld) 13 % Low 20-35 [facility] Comment on above: Performed By: #### C BCD #### [place] [address] [place] [address] MCH (RBC) [Entitic mass] 28.8 pg Normal 27.8-33.2 [facility] Comment on above: Performed By: #### C BCD #### [place] [address] [place] [address] MCV (RBC) [Entitic vol] 86.0 fL Normal 83.0-97.4 [facility] Comment on above: Performed By: #### C BCD #### [facility] [address] [place] [address] Mean Corpuscular HGB Conc 33.5 g/dL Normal 32.7-34.8 [facility] Comment on above: Performed By: #### C BCD #### [place] [address] [place] [address] Monocytes Absolute Auto 0.2 10'3/uL Normal 0.2-0.8 [facility] Comment on above: Performed By: #### C BCD #### [facility] [address] [place] [address] Monocytes/100 WBC (Bld) 5 % Normal 4-12 [facility] Comment on above: Performed By: #### C BCD #### [facility] [address] [place] [address] Neutrophil # 3.6 10'3/uL Normal 1.5-5.6 [facility] Comment on above: Performed By: #### C BCD #### [facility] [address] [place] [address] Neutrophils/100 WBC (Bld) 79 % High 41-72 [facility] Comment on above: Performed By: #### C BCD #### [facility] [address] [place] [address] Platelet Count 157 10'3/uL Normal 122-359 [facility] Comment on above: Performed By: #### C BCD #### [facility] [address] [place] [address] Platelet mean volume (Bld) [Entitic vol] 9.4 fL Normal 7.6-10.6 [facility] Comment on above: Performed By: #### C BCD #### [facility] [address] [place] [address] Red Blood Count 3.64 10'6/uL Low 3.85-4.88 [facility] Comment on above: Performed By: #### C BCD #### [facility] [address] [place] [address] White Blood Count 4.6 10'3/uL Normal 3.2-9.3 [facility] Comment on above: Performed By: #### C BCD #### [facility] [address] [place] [address] Comprehensive Metabolic Pane florence 04-12-2023 Albumin [Mass/Vol] 4.0 g/dL Normal 3.2-4.6 [facility] Comment on above: Performed By: #### C Nigel CP1, LIP #### [facility] [address] [place] [address] ALP [Catalytic activity/Vol] 62 U/L Normal 40-150 [facility] Comment on above: Performed By: #### C Nigel CP1, LIP #### [facility] [address] [place] [address] ALT [Catalytic activity/Vol] 11 U/L Normal 0-55 [facility] Comment on above: Performed By: #### C M, CP1, LIP #### [facility] [address] [place] [address] Anion gap [Moles/Vol] 12 mmol/L Normal 5-13 [facility] Comment on above: Performed By: #### C Nigel, CP1, LIP #### [facility] [address] [place] [address] AST [Catalytic activity/Vol] 17 U/L Normal 5-34 [facility] Comment on above: Performed By: #### C Nigel, CP1, LIP #### [facility] [address] [place] [address] Bilirubin [Mass/Vol] 0.7 mg/dL Normal 0.0-1.0 [facility] Comment on above: Performed By: #### Samina Manning, CP1, LIP #### [facility] [address] [place] [address] Calcium [Mass/Vol] 9.0 mg/dL Normal 8.4-10.2 [facility] Comment on above: Performed By: #### Samina Manning, CP1, LIP #### [facility] [address] [place] [address] Chloride [Moles/Vol] 105 mmol/L Normal 98-107 [facility] Comment on above: Performed By: #### C Nigel, CP1, LIP #### [facility] [address] [place] [address] CO2 [Moles/Vol] 20 mmol/L Low 23-31 [facility] Comment on above: Performed By: #### Samina Manning, CP1, LIP #### [facility] [address] [place] [address] Creatinine [Mass/Vol] 0.95 mg/dL Normal 0.57-1.11 [facility] Comment on above: Performed By: #### Samina M, CP1, LIP #### [facility] [address] [place] [address] Glomerular Filtration Rate 60 Normal mL/min/1.7 3m2 [facility] Comment on above: Performed By: #### C M, CP1, LIP #### [facility] [address] [place] [address] Glucose [Mass/Vol] 174 mg/dL High 70-100 [facility] Comment on above: Performed By: #### C M, CP1, LIP #### [facility] [address] [place] [address] Potassium [Moles/Vol] 3.8 mmol/L Normal 3.5-5.1 [facility] Comment on above: Performed By: #### C M, CP1, LIP #### [facility] [address] [place] [address] Protein [Mass/Vol] 6.7 g/dL Normal 6.4-8.2 [facility] Comment on above: Performed By: #### Samina M, CP1, LIP #### [facility] [address] [place] [address] Sodium [Moles/Vol] 137 mmol/L Normal 136-145 [facility] Comment on above: Performed By: #### Samina M, CP1, LIP #### [facility] [address] [place] [address] Urea nitrogen [Mass/Vol] 17 mg/dL Normal 7-18 [facility] Comment on above: Performed By: #### C M, CP1, LIP #### [facility] [address] [place] [address] Determination of erythrocyte mean corpuscular volume (MCV)Ordered By: Ricky Singh on 04-12-2023 MCV (RBC) [Entitic vol] 86.0 fL 83.0-97.4 [facility] EDon 04-12-2023 ED [facility] [address] [facility] [place] [address] Emergency Department Note Signed Patient Name: Sherry Ash Medical Rec ord #: [id number] Date of : 1945 Account #: [id number] Age/Sex: 77 / F Location: ED Attending physician: [facility] - General Adult General Date of Visit: 04/12/23 Chief complaint: Nausea/Vomiting/Diarrhea Time Seen by Provider: 04/12/23 09:22 History of Present Illness HPI narrative: The patient is a 77 year old F who presented to the Emergency Department with the complaint of early abdominal pain that started yesterday. Patient also has what she describes as headache occasionally and upper airway congestion but she states her main complaint today is her upper abdomen pain. She states that she has been taking her stomach pills without improvement. Noted no vomiting no diarrhea. States that she has had a appendectomy and a hysterectomy many years ago.. She states that she has had episodes similar to this in the past but was not able to find out why she had these. She states that she has never heard the term irritable bowel or diverticulitis. Home Meds and Allergies Home Medications Medication Instructions Recorded Confirmed cholecalciferol (vitamin D3) 50 50 mcg PO DAILY 12/26/20 04/12/23 mcg (2,000 unit) capsule loratadine 10 mg tablet 10 mg PO DAILY 08/24/22 04/12/23 pantoprazole 40 mg tablet,delayed 40 mg PO BID 04/12/23 04/12/23 release sertraline 100 mg tablet 100 mg PO DAILY 04/12/23 04/12/23 Previous Rx's Medication Instructions Recorded fluticasone propionate 50 1 spray Nostril-both DAILY #32 02/04/22 mcg/actuation nasal grams spray,suspension rosuvastatin 40 mg tablet 40 mg PO DAILY #90 tabs 11/03/22 metoclopramide HCl 5 mg tablet 5 mg PO TID PRN nausea and 02/24/23 (Reglan) vomiting 30 days #60 tabs alprazolam 0.5 mg tablet 0.5 mg PO BID PRN anxiety 30 days 03/24/23 #60 tabs sulfamethoxazole 400 2 tab PO Q12H 7 days #28 tabs 04/12/23 mg-trimethoprim 80 mg tablet (Bactrim) Allergies Allergy/AdvReac Type Severity Reaction Status Date / Time oxycodone Allergy Severe Headache Verified 02/23/23 15:25 Iodinated Contrast Media Allergy Mild headache, Verified 02/23/23 15:25 burning skin Penicillins Allergy Mild Rash Verified 02/23/23 15:25 Quinolones Allergy Mild Rash Verified 09/26/23 15:25 moxifloxacin Allergy Unknown Unknown Verified 02/23/23 15:25 doxycycline AdvReac Intermediate TEARS UP Verified 02/23/23 15:25 STOMACH- CAUSES ALOT OF PAIN hydrocodone AdvReac Intermediate vomiting, Verified 02/23/23 15:25 headache nitrofurantoin AdvReac Intermediate Vomiting Verified 02/23/23 15:25 [From Macrobid] albuterol AdvReac Mild HEADACHE,NA Verified 02/23/23 15:25 USEA bee venom protein (honey bee) AdvReac Mild swelling, Verified 02/23/23 15:25 vomiting calcium AdvReac Mild GI upset Verified 02/23/23 15:25 fluconazole AdvReac Mild Headache Verified 02/23/23 15:25 Review of Systems Status of ROS: Reports: 10 or more systems reviewed and unremarkable except as noted in History and below Narrative: See above History PFSH Medical History Abnormal mammogram Adult hypothyroidism Anxiety Aortic heart murmur Back pain Bilateral tinnitus Breast cancer screening by mammogram Bronchitis Cataracts, bilateral Chronic pain of left ankle Congenital ureteropelvic junction obstruction Constipation Dyslipidemia Fracture of left ankle Gastritis GERD (gastroesophageal reflux disease) Granulomatous disease Heart murmur High cholesterol HTN (hypertension), benign Hydronephrosis Mitral regurgitation Nonspecific ST-T wave electrocardiographic changes Osteoporosis Pancreatitis Pneumonia Seasonal allergies UPJ (ureteropelvic junction) obstruction Surgical History H/O bladder repair surgery History of appendectomy Hx of cataract surgery Hx of cholecystectomy Hx of hysterectomy Family History Father No problems noted. Mother No problems noted. Social History History Provided by: Patient Preferred Language: Sammarinese Language Assistance Offered: Not Applicable Usual Living Arrangement: Alone Smoking Status: Former Smoker Years Smoked: 38 Packs Per Day: 1 Other Form of Tobacco Used: Never Used Second Hand Tobacco Smoke Exposure: No How Often do you Have a Drink Containing Alcohol: Never How Many Standard Drinks Containing Alcohol do you Have on a Typical Day: None How Often do you Have Six or More Drinks on One Occasion: Never AUDIT-C Alcohol Total Score: 0 (more content not included)... Normal [facility] Eosinophils/100 WBC Auto (Bl d)Ordered By: Ricky Singh on 04-12-2023 Eosinophils/100 WBC (Bld) 2 % 2-5 [facility] Histamine release from basop hils measurementOrdered By: Ricky Singh on 04-12-2023 Glucose (U) [Mass/Vol] Negative Negative [facility] Chloride [Moles/Vol] 105 mmol/L 98-107 [facility] Creatinine [Mass/Vol] 0.95 mg/dL 0.57-1.11 [facility] Hemoglobin (Bld) [Mass/Vol] 10.5 g/dL Low 11.7-14.9 [facility] Histamine release from basophils measurement 0.1 10'3/uL 0.0-0.4 [facility] Histamine release from basophils measurement 60 mL/min/1.7 3m2 [facility] Laboratory - Chemistry and C hemistry - challengeOrdered By: Ricky Singh on 04-12-2023 Bilirubin Ql (U) Negative Negative [facility] ALP [Catalytic activity/Vol] 62 U/L 40-150 [facility] ALT [Catalytic activity/Vol] 11 U/L 0-55 [facility] Anion gap [Moles/Vol] 12 mmol/L 5-13 [facility] AST [Catalytic activity/Vol] 17 U/L 5-34 [facility] Calcium [Mass/Vol] 9.0 mg/dL 8.4-10.2 [facility] CK [Catalytic activity/Vol] 73 U/L 29-168 [facility] CK.MB [Mass/Vol] 1.1 ng/mL 1.0-3.6 [facility] CO2 [Moles/Vol] 20 mmol/L Low 23-31 [facility] Glucose [Mass/Vol] 174 mg/dL High 70-100 [facility] Lipase [Catalytic activity/Vol] 29 U/L 8-78 [facility] Troponin I.cardiac [Mass/Vol] ng/mL Low 0.010-0.04 5 [facility] Laboratory - Hematology and Cell countsOrdered By: Ricky Singh on 04-12-2023 Erythrocyte distribution width (RBC) [Ratio] 13.9 % 12.2-15.8 [facility] Lymphocytes/100 WBC (Bld) 13 % Low 20-35 [facility] MCH (RBC) [Entitic mass] 28.8 pg 27.8-33.2 [facility] MCHC (RBC) [Mass/Vol] 33.5 g/dL 32.7-34.8 [facility] Platelet mean volume (Bld) [Entitic vol] 9.4 fL 7.6-10.6 [facility] Laboratory - UrinalysisOrder ed By: Ricky Singh on 04-12-2023 Bacteria LM.HPF (Urine sed) [#/Area] 4 /[HPF] [facility] Nitrite Ql (U) Positive Abnormal Negative [facility] Protein Ql (U) 30 (1+) mg/dL Abnormal Negative [facility] Lipaseon 04-12-2023 Lipase [Catalytic activity/Vol] 29 U/L Normal 8-78 [facility] Comment on above: Performed By: #### C M, CP1, LIP #### [facility] [address] [place] [address] Monocytes Auto (Bld) [#/Vol] Ordered By: Ricky Singh on 04-12-2023 Monocytes (Bld) [#/Vol] 0.2 10'3/uL 0.2-0.8 [facility] Monocytes/100 WBC Auto (Bld) Ordered By: Ricky Singh on 04-12-2023 Monocytes/100 WBC (Bld) 5 % 4-12 [facility] Neutrophils/100 WBC Manual c nt (Bld)Ordered By: Ricky Singh on 04-12-2023 Neutrophils/100 WBC (Bld) 79 % High 41-72 [facility] No Panel InformationOrdered By: Ricky Singh on 04-12-2023 Absolute Neutrophil 3.6 10'3/uL 1.5-5.6 [facility] Lymphocytes # (Auto) 0.6 10'3/uL 0.5-3.5 [facility] Platelet Count 157 10'3/uL 122-359 [facility] Red Blood Count 3.64 10'6/uL Low 3.85-4.88 [facility] White Blood Count 4.6 10'3/uL 3.2-9.3 [facility] Occult blood ur QLOrdered By : Ricky Singh on 04-12-2023 Hemoglobin Ql (U) Trace-intact Abnormal Negative [facility] Serum or plasma bilirubin me asurement (mass/volume)Ordered By: Ricky Singh on 04-12-2023 Bilirubin [Mass/Vol] 0.7 mg/dL 0.0-1.0 [facility] Serum or plasma potassium me asurement (moles/volume)Ordered By: Ricky Singh on 04-12-2023 Potassium [Moles/Vol] 3.8 mmol/L 3.5-5.1 [facility] Serum total protein measurem ent (mass/volume)Ordered By: Ricky Singh on 04-12-2023 Protein [Mass/Vol] 6.7 g/dL 6.4-8.2 [facility] Specific gravity Test strip (U) [Rel density]Ordered By: Ricky Singh on 04-12-2023 Specific gravity (U) [Rel density] 1.020 1.005-1.03 0 [facility] Squamous epithelial cells de tection in urine sediment by light microscopyOrdered By: Ricky Singh on 04-12-2023 Epithelial cells.squamous LM Ql (Urine sed) 3-5 /lpf [facility] Thin prep Papanicolaou smear with manual screeningOrdered By: Ricky Singh on 04-12-2023 Thin prep Papanicolaou smear with manual screening 17 mg/dL 7-18 [facility] Thin prep Papanicolaou smear with manual screening 4.0 g/dL 3.2-4.6 [facility] UA with Reflex Cultureon Bacteria Urine 4+ /hpf Normal [facility] Comment on above: Performed By: #### U AREFLEX #### [facility] [address] [place] [address] RBC Urine 0-2 Normal [facility] Comment on above: Performed By: #### U AREFLEX #### [facility] [address] [place] [address] Squamous Epithelial Cell Urine 3-5 Normal [facility] Comment on above: Performed By: #### U AREFLEX #### [facility] [address] [place] [address] WBC Urine 21-50 Normal [facility] Comment on above: Performed By: #### U AREFLEX #### [facility] [address] [place] [address] Bilirubin Urine Negative Normal Negative [facility] Comment on above: Performed By: #### U AREFLEX #### [facility] [address] [place] [address] Glucose Urine UA Negative Normal Negative [facility] Comment on above: Performed By: #### U AREFLEX #### [facility] [address] [place] [address] Nitrite Urine Positive Abnormal Negative [facility] Comment on above: Performed By: #### U AREFLEX #### [place] [address] [place] [address] Occult Blood Urine Trace-Intact Abnormal Negative [facility] Comment on above: Performed By: #### U AREFLEX #### [place] [address] [place] [place] [address] Protein Urine (Multistix) 30 (1+) Abnormal Negative [facility] Comment on above: Performed By: #### U AREFLEX #### [place] [address] [place] [address] Specific [place] Urine 1.020 Normal 1.005 -1.03 0 [facility] Comment on above: Performed By: #### U AREFLEX #### [facility] [address] [place] [address] Sulfosalicylic Acid Urine 1+ Abnormal Negative [facility] Comment on above: Performed By: #### U AREFLEX #### [place] [address] [place] [address] Urobilinogen Urine 1.0 EU/dL Normal 0.2-1.0 [facility] Comment on above: Performed By: #### U AREFLEX #### [facility] [address] [place] [address] UA with Reflex CultureOrdere d By: Ricky Singh on 04-12-2023 Ketones Ql (U) Negative Normal Negative [facility] Comment on above: Performed By: #### U AREFLEX #### [facility] [address] [place] [address] Leukocyte esterase Test strip Ql (U) Small (1+) Abnormal Negative [facility] Comment on above: Performed By: #### U AREFLEX #### [facility] [address] [place] [address] Urine appearanceOrdered By: Ricky Singh on 04-12-2023 Appearance (U) Cloudy Normal CLEAR [facility] Comment on above: Performed By: #### U AREFLEX #### [facility] [address] [place] [address] Urine colorOrdered By: Diann Singh on 04-12-2023 Color (U) Yellow Normal YELLOW [facility] Comment on above: Performed By: #### U AREFLEX #### [facility] [address] [place] [address] Urine leukocyte count by sil roscopy (number/high power field)Ordered By: Ricky Singh on 04-12-2023 WBC Unsp time LM.HPF (Urine sed) [#/Vol] 21-50 /hpf [facility] Urine protein measurement by sulfosalicylic acid methodOrdered By: Ricky Singh on 04-12-2023 Protein SSA method Ql (U) 1+ Abnormal Negative [facility] Urine sediment erythrocyte c ount by microscopy (number/high power field)Ordered By: Ricky Singh on 04-12-2023 RBC LM.HPF (Urine sed) [#/Area] 0-2 /hpf [facility] Urine urobilinogen measureme ntOrdered By: Ricky Singh on 04-12-2023 Urobilinogen Ql (U) 1.0 EU/dL 0.2-1.0 [facility] Venous blood sodium measurem entOrdered By: Ricky Singh on 04-12-2023 Sodium (BldV) [Moles/Vol] 137 mmol/L 136-145 [facility] pH of UrineOrdered By: Diann Singh on 04-12-2023 pH (U) 6.0 [pH] Normal 5.5-8.0 [facility] Comment on above: Performed By: #### U AREFLEX #### [facility] [address] [place] [address] Histamine release from basop hils measurementOrdered By: Nathanael Brunner on 01-23-2023 Chloride [Moles/Vol] 102 mmol/L 98-107 [facility] Creatinine [Mass/Vol] 0.87 mg/dL 0.57-1.11 [facility] Histamine release from basophils measurement >60 mL/min/1.7 3m2 [facility] Laboratory - Chemistry and C hemistry - challengeOrdered By: Nathanael Brunner on 01-23-2023 Anion gap [Moles/Vol] 12 mmol/L 5-13 [facility] Calcium [Mass/Vol] 9.0 mg/dL 8.4-10.2 [facility] CO2 [Moles/Vol] 26 mmol/L - [facility] Glucose [Mass/Vol] 67 mg/dL Low 70-100 [facility] Serum or plasma potassium me asurement (moles/volume)Ordered By: Nathanael Brunner on 01-23-2023 Potassium [Moles/Vol] 4.0 mmol/L 3.5-5.1 [facility] Thin prep Papanicolaou smear with manual screeningOrdered By: Nathanael Brunner on 01-23-2023 Thin prep Papanicolaou smear with manual screening 13 mg/dL 7- [facility] Venous blood sodium measurem entOrdered By: Nathanael Brunner on 01-23-2023 Sodium (BldV) [Moles/Vol] 140 mmol/L 136-145 [facility] Basophils Auto (Bld) [#/Vol] Ordered By: Nathanael Brunner on 12-21-2022 Basophils (Bld) [#/Vol] 0.1 10'3/uL 0.1-0.2 [facility] Basophils/100 WBC Auto (Bld) Ordered By: Nathanael Brunner on 12-21-2022 Basophils/100 WBC (Bld) 1 % 0-1 [facility] Determination of erythrocyte mean corpuscular volume (MCV)Ordered By: Nathanael Brunner on 12-21-2022 MCV (RBC) [Entitic vol] 87.4 fL 83.0-97.4 [facility] Eosinophils/100 WBC Auto (Bl d)Ordered By: Nathanael Brunner on 12-21-2022 Eosinophils/100 WBC (Bld) 1 % Low 2-5 [facility] Hemoglobin A1c percentageon 12-21-2022 HbA1c (Bld) [Mass fraction] 4.9 % 4.5-6.2 [facility] Histamine release from basop hils measurementOrdered By: Nathanael Brunner on 12-21-2022 Chloride [Moles/Vol] 104 mmol/L 98-107 [facility] Creatinine [Mass/Vol] 1.37 mg/dL High 0.57-1.11 [facility] Hemoglobin (Bld) [Mass/Vol] 12.4 g/dL 11.7-14.9 [facility] Histamine release from basophils measurement 0.1 10'3/uL 0.0-0.4 [facility] Histamine release from basophils measurement 40 Low mL/min/1.7 3m2 [facility] Iron measurement (mass/volum e)Ordered By: Nathanael Brunner on 12-21-2022 Iron (Unsp spec) [Mass/Vol] 53 ug/dL 50-170 [facility] Comment on above: Iron values may be f alsely elevated in serum samples from patients treated with anticoagulants (e.g. hemodialysis patients). Laboratory - Chemistry and C hemistry - challengeOrdered By: Nathaanel Brunner on 12-21-2022 ALP [Catalytic activity/Vol] 59 U/L 40-150 [facility] ALT [Catalytic activity/Vol] 15 U/L 0-55 [facility] Anion gap [Moles/Vol] 10 mmol/L 5-13 [facility] AST [Catalytic activity/Vol] 21 U/L 5-34 [facility] Calcium [Mass/Vol] 9.3 mg/dL 8.4-10.2 [facility] CO2 [Moles/Vol] 24 mmol/L 23-31 [facility] Ferritin [Mass/Vol] 107.9 ng/mL 8-388 [facility] Glucose [Mass/Vol] 117 mg/dL High 70-100 [facility] Laboratory - Hematology and Cell countsOrdered By: Nathanael Brunner on 12-21-2022 Erythrocyte distribution width (RBC) [Ratio] 13.7 % 12.2-15.8 [facility] Lymphocytes/100 WBC (Bld) 17 % Low 20-35 [facility] MCH (RBC) [Entitic mass] 28.5 pg 27.8-33.2 [facility] MCHC (RBC) [Mass/Vol] 32.6 g/dL Low 32.7-34.8 [facility] Platelet mean volume (Bld) [Entitic vol] 10.2 fL 7.6-10.6 [facility] Monocytes Auto (Bld) [#/Vol] Ordered By: Nathanael Brunner on 12-21-2022 Monocytes (Bld) [#/Vol] 0.4 10'3/uL 0.2-0.8 [facility] Monocytes/100 WBC Auto (Bld) Ordered By: Nathanael Brunner on 12-21-2022 Monocytes/100 WBC (Bld) 6 % 4-12 [facility] Neutrophils/100 WBC Manual c nt (Bld)Ordered By: Nathanael Brunner on 12-21-2022 Neutrophils/100 WBC (Bld) 75 % High 41-72 [facility] No Panel InformationOrdered By: Nathanael Brunner on 12-21-2022 Absolute Neutrophil 5.4 10'3/uL 1.5-5.6 [facility] Lymphocytes # (Auto) 1.2 10'3/uL 0.5-3.5 [facility] Percent Iron Saturation 20 % 20-50 [facility] Platelet Count 169 10'3/uL 122-359 [facility] Red Blood Count 4.35 10'6/uL 3.85-4.88 [facility] Total Iron Binding Capacity 269 ug/dL 250-450 [facility] White Blood Count 7.2 10'3/uL 3.2-9.3 [facility] Serum or plasma bilirubin me asurement (mass/volume)Ordered By: Nathanael Brunner on 12-21-2022 Bilirubin [Mass/Vol] 0.4 mg/dL 0.0-1.0 [facility] Serum or plasma potassium me asurement (moles/volume)Ordered By: Nathanael Brunner on 12-21-2022 Potassium [Moles/Vol] 4.6 mmol/L 3.5-5.1 [facility] Serum or plasma unsaturated iron binding capacity measurement (mass/volume)Ordered By: Nathanael Brunner on 12-21-2022 Iron binding capacity.unsaturated [Mass/Vol] 216 ug/dL 70-310 [facility] Serum total protein measurem ent (mass/volume)Ordered By: Nathanael Brunner on 12-21-2022 Protein [Mass/Vol] 7.0 g/dL 6.4-8.2 [facility] Thin prep Papanicolaou smear with manual screeningOrdered By: Nathanael Brunner on 12-21-2022 Thin prep Papanicolaou smear with manual screening 13 mg/dL 7-18 [facility] Thin prep Papanicolaou smear with manual screening 4.6 g/dL 3.2-4.6 [facility] Thin prep Papanicolaou smear with manual screening 2.548 uIU/mL 0.358-3.74 0 [facility] Venous blood sodium measurem entOrdered By: Nathanael Brunner on 12-21-2022 Sodium (BldV) [Moles/Vol] 138 mmol/L 136-145 [facility] Laboratory - Chemistry and C hemistry - challengeon 12-15-2022 Bilirubin Ql (U) Negative [facility] Glucose Ql (U) Negative [facility] Ketones Ql (U) Negative [facility] pH (U) 5.0 [pH] [facility] Specific gravity (U) [Rel density] 1.015 [facility] Urobilinogen (U) [Mass/Vol] 0.2 mg/dL [facility] Laboratory - Specimen inform ationon 12-15-2022 Appearance (U) clear [facility] Color (U) Light yellow [facility] Laboratory - Urinalysison Leukocyte esterase Test strip Ql (U) Negative [facility] Nitrite Ql (U) Negative [facility] Protein Ql (U) Trace [facility] No Panel Informationon 12-15 Urine Occult Blood Trace-nonhemolyzed [facility] Urine culture routineOrdered By: Allison Kitchen on 12-15-2022 Bacteria identified Cx Nom (U) Staphylococcus haemolyticus Abnormal [facility] Bacteria identified Cx Nom (U) Strep agalactiae - (group b) Abnormal [facility] Laboratory - Chemistry and C hemistry - challengeon 11-21-2022 Bilirubin Ql (U) Negative [facility] Glucose Ql (U) Negative [facility] Ketones Ql (U) Negative [facility] pH (U) 6.0 [pH] [facility] Specific gravity (U) [Rel density] 1.010 [facility] Urobilinogen (U) [Mass/Vol] 0.2 mg/dL [facility] Laboratory - Specimen inform ationon 11-21-2022 Appearance (U) clear [facility] Color (U) Light yellow [facility] Laboratory - Urinalysison Leukocyte esterase Test strip Ql (U) Negative [facility] Nitrite Ql (U) Negative [facility] Protein Ql (U) Trace [facility] No Panel Informationon 11-21 Urine Occult Blood Negative [facility] Urine culture routineOrdered By: Kristine Benedict on 11-21-2022 Bacteria identified Cx Nom (U) [facility] Laboratory - Chemistry and C hemistry - challengeon 09-16-2022 Bilirubin Ql (U) Negative [facility] Glucose Ql (U) Negative [facility] Ketones Ql (U) Negative [facility] pH (U) 5.0 [pH] [facility] Specific gravity (U) [Rel density] 1.015 [facility] Urobilinogen (U) [Mass/Vol] 0.2 mg/dL [facility] Laboratory - Specimen inform ationon 09-16-2022 Appearance (U) clear [facility] Color (U) Yellow [facility] Laboratory - Urinalysison Leukocyte esterase Test strip Ql (U) Negative [facility] Nitrite Ql (U) Negative [facility] Protein Ql (U) Trace [facility] No Panel Informationon 09-16 Urine Occult Blood Negative [facility] Hemoglobin A1c percentageon 08-26-2022 HbA1c (Bld) [Mass fraction] 5.2 % 4.5-6.2 [facility] Basophils Auto (Bld) [#/Vol] Ordered By: Olga Peterson on 08-24-2022 Basophils (Bld) [#/Vol] 0.0 10'3/uL Low 0.1-0.2 [facility] Basophils/100 WBC Auto (Bld) Ordered By: Olga Peterson on 08-24-2022 Basophils/100 WBC (Bld) 0 % 0-1 [facility] Determination of erythrocyte mean corpuscular volume (MCV)Ordered By: Olga Peterson on 08-24-2022 MCV (RBC) [Entitic vol] 86.1 fL 83.0-97.4 [facility] Eosinophils/100 WBC Auto (Bl d)Ordered By: Olga Peterson on 08-24-2022 Eosinophils/100 WBC (Bld) 0 % Low 2-5 [facility] Histamine release from basop hils measurementOrdered By: Olga Peterson on 08-24-2022 Glucose (U) [Mass/Vol] Negative Negative [facility] Chloride [Moles/Vol] 105 mmol/L 98-107 [facility] Creatinine [Mass/Vol] 0.84 mg/dL 0.57-1.11 [facility] Hemoglobin (Bld) [Mass/Vol] 10.5 g/dL Low 11.7-14.9 [facility] Histamine release from basophils measurement 0.0 10'3/uL 0.0-0.4 [facility] Histamine release from basophils measurement >60 mL/min/1.7 3m2 [facility] Laboratory - Chemistry and C hemistry - challengeOrdered By: Olga Peterson on 08-24-2022 Bilirubin Ql (U) Negative Negative [facility] Ketones Ql (U) Negative Negative [facility] ALP [Catalytic activity/Vol] 59 U/L 40-150 [facility] ALT [Catalytic activity/Vol] 18 U/L 0-55 [facility] Anion gap [Moles/Vol] 12 mmol/L 5-13 [facility] AST [Catalytic activity/Vol] 21 U/L 5-34 [facility] Calcium [Mass/Vol] 9.0 mg/dL 8.4-10.2 [facility] CO2 [Moles/Vol] 20 mmol/L Low 23-31 [facility] Glucose [Mass/Vol] 102 mg/dL High 70-100 [facility] Lipase [Catalytic activity/Vol] 23 U/L 8-78 [facility] Laboratory - Hematology and Cell countsOrdered By: Olga Peterson on 08-24-2022 Erythrocyte distribution width (RBC) [Ratio] 14.1 % 12.2-15.8 [facility] Lymphocytes/100 WBC (Bld) 12 % Low 20-35 [facility] MCH (RBC) [Entitic mass] 28.5 pg 27.8-33.2 [facility] MCHC (RBC) [Mass/Vol] 33.1 g/dL 32.7-34.8 [facility] Platelet mean volume (Bld) [Entitic vol] 9.5 fL 7.6-10.6 [facility] Laboratory - UrinalysisOrder ed By: Olga Peterson on 08-24-2022 Bacteria LM.HPF (Urine sed) [#/Area] 4 /[HPF] [facility] Leukocyte esterase Test strip Ql (U) Moderate (2+) Abnormal Negative [facility] Nitrite Ql (U) Positive Abnormal Negative [facility] Protein Ql (U) 30 (1+) mg/dL Abnormal Negative [facility] Monocytes Auto (Bld) [#/Vol] Ordered By: Olga Peterson on 08-24-2022 Monocytes (Bld) [#/Vol] 0.9 10'3/uL High 0.2-0.8 [facility] Monocytes/100 WBC Auto (Bld) Ordered By: Olga Peterson on 08-24-2022 Monocytes/100 WBC (Bld) 11 % 4-12 [facility] Neutrophils/100 WBC Manual c nt (Bld)Ordered By: Olga Peterson on 08-24-2022 Neutrophils/100 WBC (Bld) 78 % High 41-72 [facility] No Panel InformationOrdered By: Olga Peterson on 08-24-2022 Absolute Neutrophil 6.6 10'3/uL High 1.5-5.6 [facility] Lymphocytes # (Auto) 1.0 10'3/uL 0.5-3.5 [facility] Platelet Count 162 10'3/uL 122-359 [facility] Red Blood Count 3.68 10'6/uL Low 3.85-4.88 [facility] White Blood Count 8.5 10'3/uL 3.2-9.3 [facility] Occult blood ur QLOrdered By : Olga Peterson on 08-24-2022 Hemoglobin Ql (U) Trace-intact Abnormal Negative [facility] Serum or plasma bilirubin me asurement (mass/volume)Ordered By: Olga Peterson on 08-24-2022 Bilirubin [Mass/Vol] 0.8 mg/dL 0.0-1.0 [facility] Serum or plasma potassium me asurement (moles/volume)Ordered By: Olga Peterson on 08-24-2022 Potassium [Moles/Vol] 3.7 mmol/L 3.5-5.1 [facility] Serum total protein measurem ent (mass/volume)Ordered By: Olga Peterson on 08-24-2022 Protein [Mass/Vol] 6.7 g/dL 6.4-8.2 [facility] Specific gravity Test strip (U) [Rel density]Ordered By: Olga Peterson on 08-24-2022 Specific gravity (U) [Rel density] 1.010 1.005-1.03 0 [facility] Squamous epithelial cells de tection in urine sediment by light microscopyOrdered By: Olga Peterson on 08-24-2022 Epithelial cells.squamous LM Ql (Urine sed) 6-10 /lpf [facility] Thin prep Papanicolaou smear with manual screeningOrdered By: Olga Peterson on 08-24-2022 Thin prep Papanicolaou smear with manual screening 12 mg/dL 7-18 [facility] Thin prep Papanicolaou smear with manual screening 4.0 g/dL 3.2-4.6 [facility] Urine appearanceOrdered By: Olga Peterson on 08-24-2022 Appearance (U) Clear CLEAR [facility] Urine colorOrdered By: Olga Peterson on 08-24-2022 Color (U) Yellow YELLOW [facility] Urine culture routineOrdered By: Olga Peterson on 08-24-2022 Bacteria identified Cx Nom (U) Escherichia coli Abnormal [facility] Urine leukocyte count by sil roscopy (number/high power field)Ordered By: Olga Peterson on 08-24-2022 WBC Unsp time LM.HPF (Urine sed) [#/Vol] 11-20 /hpf [facility] Urine sediment erythrocyte c ount by microscopy (number/high power field)Ordered By: Olga Peterson on 08-24-2022 RBC LM.HPF (Urine sed) [#/Area] 0-2 /hpf [facility] Urine urobilinogen measureme ntOrdered By: Olga Peterson on 08-24-2022 Urobilinogen Ql (U) 1.0 EU/dL 0.2-1.0 [facility] Venous blood sodium measurem entOrdered By: Olga Peterson on 08-24-2022 Sodium (BldV) [Moles/Vol] 137 mmol/L 136-145 [facility] [facility] pH of UrineOrdered By: Olga Peterson on 08-24-2022 pH (U) 6.0 [pH] 5.5-8.0 [facility] Laboratory - Chemistry and C hemistry - challengeOrdered By: Nathanael Brunner on 08-13-2022 Free T4 [Mass/Vol] 0.75 ng/dL 0.59-1.17 [facility] Serum or plasma thyroid stim ulating hormone (TSH) measurement (units/volume)Ordered By: Nathanael Burnner on 08-13-2022 TSH Qn 1.922 uIU/mL 0.358-3.74 0 [facility] Histamine release from basop hils measurementOrdered By: Joy Wan on 07-16-2022 Chloride [Moles/Vol] 106 mmol/L 98-107 [facility] Creatinine [Mass/Vol] 0.79 mg/dL 0.57-1.11 [facility] Histamine release from basophils measurement >60 mL/min/1.7 3m2 [facility] Laboratory - Chemistry and C hemistry - challengeOrdered By: Joy Wan on 07-16-2022 ALP [Catalytic activity/Vol] 64 U/L 40-150 [facility] ALT [Catalytic activity/Vol] 21 U/L 0-55 [facility] Anion gap [Moles/Vol] 10 mmol/L 5-13 [facility] AST [Catalytic activity/Vol] 25 U/L 5-34 [facility] Calcium [Mass/Vol] 9.4 mg/dL 8.4-10.2 [facility] CO2 [Moles/Vol] 23 mmol/L 23-31 [facility] Glucose [Mass/Vol] 94 mg/dL 70-100 [facility] No Panel InformationOrdered By: Joy Wan on 07-16-2022 Parathyroid Hormone (Intact) 50 pg/mL 14-64 [facility] Comment on above: Interpretive Guide I ntact PTH CalciumNormal Parathyroid Normal NormalHypoparathyroidism Low or Low Normal LowHyperparathyroidism Primary Normal or High High Secondary High Normal or Low Tertiary High HighNon-Parathyroid Hypercalcemia Low or Low Normal HighFor additional information, please refer [email or web address](This link is being provided for informational/educational purposes only.)Test Performed by [employer] [facility],[address] [place] [id number] Fuller M.D., Ph.D., Director of [phone], CLIA [id number] Vitamin D 25-Hydroxy 58.1 ng/mL 30.0-100.0 [facility] Serum or plasma bilirubin me asurement (mass/volume)Ordered By: Joy Wan on 07-16-2022 Bilirubin [Mass/Vol] 0.7 mg/dL 0.0-1.0 [facility] Serum or plasma potassium me asurement (moles/volume)Ordered By: Joy Wan on 07-16-2022 Potassium [Moles/Vol] 4.5 mmol/L 3.5-5.1 [facility] Serum total protein measurem ent (mass/volume)Ordered By: Joy Wan on 07-16-2022 Protein [Mass/Vol] 6.8 g/dL 6.4-8.2 [facility] Thin prep Papanicolaou smear with manual screeningOrdered By: Joy Wan on 07-16-2022 Thin prep Papanicolaou smear with manual screening 14 mg/dL 7-18 [facility] Thin prep Papanicolaou smear with manual screening 4.3 g/dL 3.2-4.6 [facility] Venous blood sodium measurem entOrdered By: Joy Wan on 07-16-2022 Sodium (BldV) [Moles/Vol] 139 mmol/L 136-145 [facility] Laboratory - Chemistry and C hemistry - challengeon 06-30-2022 Bilirubin Ql (U) Small [facility] Glucose Ql (U) Negative [facility] Ketones Ql (U) Trace [facility] pH (U) 6.5 [pH] [facility] Specific gravity (U) [Rel density] 1.025 [facility] Urobilinogen (U) [Mass/Vol] 1 mg/dL [facility] Laboratory - Specimen inform ationon 06-30-2022 Appearance (U) cloudy [facility] Color (U) Yellow [facility] Laboratory - Urinalysison Leukocyte esterase Test strip Ql (U) Moderate [facility] Nitrite Ql (U) Positive [facility] Protein Ql (U) +++ [facility] No Panel Informationon 06-30 Urine Occult Blood Large [facility] Urine culture routineOrdered By: Allison Kitchen on 06-30-2022 Bacteria identified Cx Nom (U) Escherichia coli Abnormal [facility] Bacteria identified Cx Nom (U) Strep agalactiae - (group b) Abnormal [facility] Bacteria identified Cx Nom (U) Escherichia coli Abnormal [facility] Bacteria identified Cx Nom (U) Strep agalactiae - (group b) Abnormal [facility] Laboratory - Chemistry and C hemistry - challengeOrdered By: Nathanael Brunner on 04-13-2022 Cobalamin (Vitamin B12) [Mass/Vol] 716 pg/mL 213-816 [facility] No Panel InformationOrdered By: Nathanael Brunner on 04-13-2022 Folate 18.0 ng/mL High 3.1-17.5 [facility] Laboratory - Chemistry and C hemistry - challengeOrdered By: Nathanael Brunner on 04-06-2022 Free T4 [Mass/Vol] 0.83 ng/dL 0.59-1.17 [facility] No Panel InformationOrdered By: Nathanael Brunner on 04-06-2022 Thyroid Stimulating Hormone (TSH) 3.731 uIU/mL 0.358-3.74 0 [facility] Urine culture routineOrdered By: Tisha Jenkins on 12-01-2021 Bacteria identified Cx Nom (U) [facility] Laboratory - Chemistry and C hemistry - challengeon 11-29-2021 Bilirubin Ql (U) Negative [facility] Glucose Ql (U) Negative [facility] Ketones Ql (U) Negative [facility] pH (U) 6.5 [pH] [facility] Specific gravity (U) [Rel density] 1.010 [facility] Urobilinogen (U) [Mass/Vol] 1 mg/dL [facility] Laboratory - Specimen inform ationon 11-29-2021 Appearance (U) clear [facility] Color (U) Yellow [facility] Laboratory - Urinalysison Leukocyte esterase Test strip Ql (U) Moderate [facility] Nitrite Ql (U) Negative [facility] Protein Ql (U) Trace [facility] No Panel Informationon 11-29 Urine Occult Blood Negative [facility] Basophils Auto (Bld) [#/Vol] Ordered By: Myrna Alvarenga on 11-19-2021 Basophils (Bld) [#/Vol] 0.0 10'3/uL Low 0.1-0.2 [facility] Basophils/100 WBC Auto (Bld) Ordered By: Myrna Alvarenga on 11-19-2021 Basophils/100 WBC (Bld) 1 % 0-1 [facility] Determination of erythrocyte mean corpuscular volume (MCV)Ordered By: Myrna Alvarenga on 11-19-2021 MCV (RBC) [Entitic vol] 85.8 fL 83.0-97.4 [facility] Eosinophils/100 WBC Auto (Bl d)Ordered By: Myrna Alvarenga on 11-19-2021 Eosinophils/100 WBC (Bld) 3 % 2-5 [facility] Histamine release from basop hils measurementOrdered By: Myrna Alvarenga on 11-19-2021 Bilirubin [Mass/Vol] 0.6 mg/dL 0.0-1.0 [facility] Chloride [Moles/Vol] 107 mmol/L 98-107 [facility] Cholesterol [Mass/Vol] 160 mg/dL <200 [facility] Creatinine [Mass/Vol] 0.92 mg/dL 0.57-1.11 [facility] Hemoglobin (Bld) [Mass/Vol] 12.4 g/dL 11.7-14.9 [facility] Histamine release from basophils measurement 0.2 10'3/uL 0.0-0.4 [facility] Histamine release from basophils measurement >60 mL/min/1.7 3m2 [facility] Potassium [Moles/Vol] 4.0 mmol/L 3.5-5.1 [facility] Protein [Mass/Vol] 6.7 g/dL 6.4-8.2 [facility] Sodium [Moles/Vol] 141 mmol/L 136-145 [facility] Triglyceride [Mass/Vol] 158 mg/dL High <150 [facility] Laboratory - Chemistry and C hemistry - challengeOrdered By: Myrna Alvarenga on 11-19-2021 ALP [Catalytic activity/Vol] 58 U/L 40-150 [facility] ALT [Catalytic activity/Vol] 20 U/L 0-55 [facility] Anion gap [Moles/Vol] 10 mmol/L 5-13 [facility] AST [Catalytic activity/Vol] 24 U/L 5-34 [facility] Calcium [Mass/Vol] 9.2 mg/dL 8.4-10.2 [facility] Cholesterol in HDL [Mass/Vol] 51 mg/dL 45-60 [facility] Cholesterol in LDL [Mass/Vol] 77 mg/dL <99 [facility] Cholesterol.total/Chol esterol in HDL [Mass ratio] 3.137 {ratio} [facility] Comment on above: NATIONAL CHOLESTEROL GUIDELINES [facility] ([facility]) guidelines for classificaton, testing and management of cholesterol levels in adults over 20 years of age. This new classification creates three categories of risk for coronary heart disease, regardless of age or sex, according to total amd LDL cholesterols levels: Based on Total Cholesterol Level Desirable <200 mg/dL Borderline-high 200-239 mg/dL High >=240 mg/dL Based on Cholesterol Ratio CHD RISK CHOL/HDL RATIO MALE FEMALE 0.5 x Average 3.4 3.3 1.0 x Average 5.0 4.4 2.0 x Average 9.6 7.1 3.0 x Average 13.5 11.0 NATIONAL CHOLESTEROL GUIDELINES [facility] ([facility]) guidelines for classificaton, testing and management of cholesterol levels in adults over 20 years of age. This new classification creates three categories of risk for coronary heart disease, regardless of age or sex, according to total amd LDL cholesterols levels: Based on Total Cholesterol LevelDesirable <200 mg/dLBorderline-high 200-239 mg/dLHigh >=240 mg/dL Based on Cholesterol Ratio CHD RISK CHOL/HDL RATIO -- MALE FEMALE0.5 x Average 3.4 3.31.0 x Average 5.0 4.42.0 x Average 9.6 7.13.0 x Average 13.5 11.0 CO2 [Moles/Vol] 24 mmol/L 23-31 [facility] Free T4 [Mass/Vol] 0.80 ng/dL 0.59-1.17 [facility] Glucose [Mass/Vol] 109 mg/dL High 70-100 [facility] Laboratory - Hematology and Cell countsOrdered By: Myrna Alvarenga on 11-19-2021 Erythrocyte distribution width (RBC) [Ratio] 13.6 % 12.2-15.8 [facility] Lymphocytes/100 WBC (Bld) 25 % 20-35 [facility] MCH (RBC) [Entitic mass] 27.9 pg 27.8-33.2 [facility] MCHC (RBC) [Mass/Vol] 32.5 g/dL Low 32.7-34.8 [facility] Monocytes Auto (Bld) [#/Vol] Ordered By: Myrna Alvarenga on 11-19-2021 Monocytes (Bld) [#/Vol] 0.5 10'3/uL 0.2-0.8 [facility] Monocytes/100 WBC Auto (Bld) Ordered By: Myrna Alvarenga on 11-19-2021 Monocytes/100 WBC (Bld) 8 % 4-12 [facility] Neutrophils/100 WBC Manual c nt (Bld)Ordered By: Myrna Alvarenga on 11-19-2021 Neutrophils/100 WBC (Bld) 64 % 41-72 [facility] No Panel InformationOrdered By: Myrna Alvarenga on 11-19-2021 Absolute Neutrophil 4.3 10'3/uL 1.5-5.6 [facility] Lymphocytes # (Auto) 1.7 10'3/uL 0.5-3.5 [facility] Platelet Count 146 10'3/uL 122-359 [facility] Red Blood Count 4.44 10'6/uL 3.85-4.88 [facility] Thyroid Stimulating Hormone (TSH) 3.195 uIU/mL 0.358-3.74 0 [facility] VLDL Cholesterol 32 mg/dL 5-35 [facility] White Blood Count 6.7 10'3/uL 3.2-9.3 [facility] Thin prep Papanicolaou smear with manual screeningOrdered By: Myrna Alvarenga on 11-19-2021 Thin prep Papanicolaou smear with manual screening 9.2 fL 7.6-10.6 [facility] Thin prep Papanicolaou smear with manual screening 19 mg/dL High 7-18 [facility] Thin prep Papanicolaou smear with manual screening 4.3 g/dL 3.2-4.6 [facility] BASIC METABOLIC PROFILEon GFR/1.73 sq M.predicted MDRD (S/P/Bld) [Vol rate/Area] mL/min/{1.73_m2} Normal ml/min/1.7 3m2 [facility] Comment on above: Result Comment: GFR values >60 are not clinically significant. Performed By: #### C P1, BM #### [facility] CLIA # [id number] [address] [place] [address] Anion gap [Moles/Vol] 10 mmol/L Normal 5-13 [facility] Comment on above: Performed By: #### C P1, BM #### [facility] CLIA # [id number] [address] [place] [address] Calcium [Mass/Vol] 8.9 mg/dL Normal 8.4-10.2 [facility] Comment on above: Performed By: #### C P1, BM #### [facility] CLIA # [id number] [address] [place] [address] Chloride [Moles/Vol] 103 mmol/L Normal 98-107 [facility] Comment on above: Performed By: #### C P1, BM #### [facility] CLIA # [id number] [address] [place] [address] CO2 [Moles/Vol] 23 mmol/L Normal 23-31 [facility] Comment on above: Performed By: #### C P1, BM #### [facility] CLIA # [id number] [address] [place] [address] Creatinine [Mass/Vol] 0.72 mg/dL Normal 0.57-1.11 [facility] Comment on above: Performed By: #### C P1, BM #### [facility] CLIA # [id number] [address] [place] [address] Glucose [Mass/Vol] 94 mg/dL Normal 70-99 [facility] Comment on above: Performed By: #### C P1, BM #### [facility] CLIA # [id number] [address] [place] [address] Potassium [Moles/Vol] 4.0 mmol/L Normal 3.5-5.1 [facility] Comment on above: Performed By: #### C P1, BM #### [facility] CLIA # [id number] [address] [place] [address] Sodium [Moles/Vol] 136 mmol/L Normal 136-145 [facility] Comment on above: Performed By: #### C P1, BM #### [facility] CLIA # [id number] [address] [place] [address] Urea nitrogen [Mass/Vol] 10 mg/dL Normal 7-18 [facility] Comment on above: Performed By: #### C P1, BM #### [facility] CLIA # [id number] [address] [place] [address] COMPLETE BLOOD COUNT W/DIFFo n 08-02-2020 Basophils (Bld) [#/Vol] 0.1 10'3/uL Normal 0.1-0.2 [facility] Comment on above: Performed By: #### C M #### [facility] CLIA # [id number] [address] [place] [address] Basophils/100 WBC (Bld) 0.8 % Normal 0.0-1.7 [facility] Comment on above: Performed By: #### C M #### [facility] CLIA # [id number] [address] [place] [address] Eosinophils (Bld) [#/Vol] 0.2 10'3/uL Normal 0.0-0.4 [facility] Comment on above: Performed By: #### C M #### [facility] CLIA # [id number] [address] [place] [address] Eosinophils/100 WBC (Bld) 2.6 % Normal 0.0-6.4 [facility] Comment on above: Performed By: #### C M #### [facility] CLIA # [id number] [address] [place] [address] Erythrocyte distribution width (RBC) [Ratio] 12.7 % Normal 12.2-15.8 [facility] Comment on above: Performed By: #### C M #### [facility] CLIA # [id number] [address] [place] [address] Hematocrit (Bld) [Volume fraction] 35.2 % Normal 34.6-44.1 [facility] Comment on above: Performed By: #### C M #### [facility] CLIA # [id number] [address] [place] [address] Hemoglobin (Bld) [Mass/Vol] 11.9 g/dL Normal 11.7-14.9 [facility] Comment on above: Performed By: #### C M #### [facility] CLIA # [id number] [address] [place] [address] Lymphocytes (Bld) [#/Vol] 1.9 10'3/uL Normal 0.5-3.5 [facility] Comment on above: Performed By: #### C M #### [facility] CLIA # [id number] [address] [place] [address] Lymphocytes/100 WBC (Bld) 25.1 % Normal 17.4-45.9 [facility] Comment on above: Performed By: #### C M #### [facility] CLIA # [id number] [address] [place] [address] MCH (RBC) [Entitic mass] 33.8 g/dL Normal 32.7-34.8 [facility] Comment on above: Performed By: #### C M #### [facility] CLIA # [id number] [address] [place] [address] MCH (RBC) [Entitic mass] 28.4 pg Normal 27.8-33.2 [facility] Comment on above: Performed By: #### C M #### [facility] CLIA # [id number] [address] [place] [address] MCV (RBC) [Entitic vol] 84.0 fL Normal 83.0-97.4 [facility] Comment on above: Performed By: #### C M #### [facility] CLIA # [id number] [address] [place] [address] Monocytes (Bld) [#/Vol] 0.5 10'3/uL Normal 0.2-0.8 [facility] Comment on above: Performed By: #### C M #### [facility] CLIA # [id number] [address] [place] [address] Monocytes/100 WBC (Bld) 6.6 % Normal 4.4-12.0 [facility] Comment on above: Performed By: #### C M #### [facility] CLIA # [id number] [address] [place] [address] Neutrophils (Bld) [#/Vol] 4.9 10'3/uL Normal 1.5-5.6 [facility] Comment on above: Performed By: #### C M #### [facility] CLIA # [id number] [address] [place] [address] Neutrophils/100 WBC (Bld) 64.9 % Normal 41.2-72.1 [facility] Comment on above: Performed By: #### C M #### [facility] CLIA # [id number] [address] [place] [address] Platelet mean volume (Bld) [Entitic vol] 9.1 fL Normal 7.6-10.6 [facility] Comment on above: Performed By: #### C M #### [facility] CLIA # [id number] [address] [place] [address] Platelets (Bld) [#/Vol] 167 10'3/uL Normal 122-359 [facility] Comment on above: Performed By: #### C M #### [facility] CLIA # [id number] [address] [place] [address] RBC (Bld) [#/Vol] 4.19 10'6/uL Normal 3.85-4.88 [facility] Comment on above: Performed By: #### C M #### [facility] CLIA # [id number] [place] [address] WBC (Bld) [#/Vol] 7.6 10'3/uL Normal 3.2-9.3 [facility] Comment on above: Performed By: #### C M #### [facility] CLIA # [id number] [address] [place] [address] ID NOW COVID-19on 08-02-2020 ID NOW COVID-19 ID NOW COVID-19 COVID-19 RESULT INTERPRETATION: CoVID-19 Positive - Positive results do not rule out bacterial infection or co-infection with other viruses. CoVID-19 Negative - Negative results should be treated as presumptive and, if inconsistent with clinical signs and symptoms or necessary for patient management, should be tested with an alternative molecular assay. A negative result does not rule out co-infections with other pathogens. INVALID - The presence or absence of CoVID-19 Viral RNAs cannot be determined. Suggest testing with an alternate assay method. CoVID-19 Result: Presumptive Negative for CoVID-19 Normal [facility] PATHOLOGYon 07-05-[address] CLIA # [id number] Name: SHERRY ASH Age/Sex: 74/F Attend Dr: MYRNA ALVARENGA D.O. Unit#: [id number] Status: REG CLI Location: [place] [address] Re07/05/20 Disch: : 1945 CLINICAL DIAGNOSIS Suspicious skin lesion SURGICAL PROCEDURE: Shave biopsy back PERTINENT CLINICAL INFORMATION: LESION - BACK GROSS DESCRIPTION The specimen is labeled as shave biopsy, skin lesion, back. It is received in formalin and consists of a superficial portion of the skin that measures 1 x 0.8 x 0.05cm. The surface of the skin shows a well- demarcated white papillary lesion measuring 0.3 x 0.3 x 0.1cm. The resection margin is painted with blue ink. The specimen is bisected and submitted entirely in one cassette. MCP MICROSCOPIC DESCRIPTION Sections show benign squamous keratosis. It consists of superficial portions of skin. The epidermis shows acanthosis, papillomatosis, and hyperkeratosis. The dermis shows mild chronic inflammation. Negative for malignancy. FINAL DIAGNOSIS Shave biopsy, skin lesion, back: * Chronically inflamed benign squamous keratosis. Codes 6 & [address] Ebony Garcia on 07/09/2020 at 1053. Transcribed by:07/09/201102 [facility] CODES: LESION PROCEDURES: MIC3 (07/08/20) Signed (signature on file) Ebony Garcia M.D 07/09/20 1119 LABORATORY Normal [facility] Comment on above: Performed By: #### C P1, BM #### [facility] CLIA # [id number] [phone] [address] [place] [id number] 3D BILAT SCREENING MAMMon 3D BILAT SCREENING MAMM [facility] Name: SHERRY ASH : 1945 Unit #: [id number] Age: 74 Attending Physician: MYRNA ALVARENGA D.O. Pt Location: RAD Date of Service: 07/03/20 3D BILAT SCREENING MAMM Digital mammography was performed with the [employer] digital mammography system. Computer assisted diagnostics (CAD) was applied to all images using the R2 image bakery products checker. HISTORY: Screening. Study: 3D bilateral screening mammogram dated 07-03-20 at 1520 hours FINDINGS: Comparison is made with exam of 06-22-19. The study was performed utilizing 3D tomosynthesis. A moderate amount of fibroglandular tissue is present. No dominant mass or suspicious calcifications are present. Breast Composition Category B - There are scattered areas of fibroglandular density. IMPRESSION: No evidence of malignancy. Category 1: Negative. Continued routine annual mammography and monthly self-exams are recommended. Patient was entered into the mammography reminder system. EXAM/ORDER VERIFICATION: Y PT/FAMILY VERBALIZES UNDERSTANDING OF EXAM Y LMP TECH INITIALS JT COMMENTS Electronically Signed by: MIHIR MYERS M.D. 07/05/20 1004 MIHIR MYERS M.D. Date Dict: 07/04/20 1137 MIHIR MYERS M.D. Date Trans: 07/04/20 1227 [facility] [phone] cc: MYRNA ALVARENGA D.O. Normal [facility] ANDRE-ESon 03-27-2020 [facility] Name: SHERRY ASH : 1945 Unit: [id number] Age: 74 Attending Physician: LION HURTADO M.D. Pt Location: SURG Date of Service: REPORT OF OPERATION DATE OF PROCEDURE: 03/27/2020 PREOPERATIVE DIAGNOSIS: Bilateral ureteropelvic junction obstruction. POSTOPERATIVE DIAGNOSIS: Bilateral ureteropelvic junction obstruction. SURGEON: Fredi Hurtado M.D. ASSISTANTS: OPERATION: Cystoscopy. Bilateral stent removal. ANESTHESIA: Local. COMPLICATIONS: None. DRAINS: None. SPECIMENS: None. ESTIMATED BLOOD LOSS: None. INDICATION FOR PROCEDURE: This patient is a 74-year-old female who presented with symptoms associated with bilateral ureteropelvic junction obstruction. We initially started by placing stents to decompress both kidneys before further consideration for intervention. The patient experienced a great deal of stent pain associated with the stents. These were call the classic symptoms with urinary urgency, frequency, urge incontinence, and flank pain associated with voiding. We attempted therapies to alleviate the severity of the stent discomfort. However, these issues were quite bothersome to the patient so she insisted on removal of the stents. We discussed other treatment options, then we opted to proceed with cystoscopy and stent removal. The risks and indications of the procedure were discussed with the patient prior to signing consent. OPERATIVE PROCEDURE: The patient was brought to the cystoscopy suite and placed in dorsal lithotomy position on the cysto table. The perineum was prepped and draped in the usual sterile fashion. The #21 Dutch cystoscope sheath with a 30 degree lens was used to perform cystourethroscopy. We were able to see the stents protruding from both the right and the left ureteral orifice. One by one we grasped the stents and removed those without difficulty. We inspected the stents and they were all intact. The patient was then brought back to the same day surgery area in stable condition. Plans were made to discharge the patient to home with follow-up being planned in the urology office. The patient tolerated the procedure well. There were no operative complications. Electronically Signed by: LION HURTADO M.D. 03/28/20 1348 LION HURTADO M.D. Date Dict: 03/27/20 1457 LION HURTADO M.D. Date trans: 03/27/20 1519 [facility] [phone] cc: LION HURTADO M.D., SHELLY K D.O. [facility] 03-13-2020 [facility] Name: SHERRY ASH DOB: 1945 Unit: [id number] Age: 74 Attending Physician: LION HURTADO M.D. Pt Location: SURG Date of Service: REPORT OF OPERATION DATE OF PROCEDURE: 03/13/2020 PREOPERATIVE DIAGNOSIS: Bilateral ureteropelvic junction obstruction. POSTOPERATIVE DIAGNOSIS: Bilateral ureteropelvic junction obstruction. SURGEON: Fredi Hurtado M.D. ASSISTANTS: OPERATION: Cystoscopy. Bilateral retrograde pyelogram. Bilateral stent placement. ANESTHESIA: General. COMPLICATIONS: None. DRAINS: Bilateral #6 Dutch 24 cm double J stents. SPECIMENS: None. ESTIMATED BLOOD LOSS: None. INDICATION FOR PROCEDURE: This patient is a 74-year-old female who presented with anatomic ureteropelvic junctions on both sides. Although we had identified normal kidney function on both sides with no significant diminishment, the patient continued to describe vague bilateral upper back pain. As this was the only anatomic abnormality, we discussed options. We opted to decompress both kidneys by placing ureteral stents on both sides. The risks and indications of the procedure were discussed with the patient prior to signing consent. OPERATIVE PROCEDURE: The patient was brought to the cystoscopy suite and placed in dorsal lithotomy position on the cysto table. The perineum was prepped and draped in the usual sterile fashion. The #21 Dutch cystoscope sheath with a 30 degree lens was used to perform cystourethroscopy. There did appear to be significant descent of the floor of the bladder with no definitive cystocele seen. We were able to see both ureteral orifices. There was clear afflux of urine actually from both sides. There were no tumors or foreign bodies noted within the bladder. The urethra appeared otherwise normal. We used a #6 Dutch open ended ureteral catheter first on the patient's left side. We performed a retrograde pyelogram. We did see a normal ureter all the way up to the ureteropelvic junction where there was a classic high insertion of the ureter and filling of the extra renal pelvis. The calyces were sharp and cupped. There were no filling defects within the system. We then performed a retrograde pyelogram on the patient's right side. Again there was a normal course of the ureter all the way up to the abnormal ureteropelvic junction with a high insertion of the ureter on this side as well. Again there was significant extra renal dilation of the renal pelvis with otherwise normal calyces which were fine and cupped. There were no filling defects on this side as well. Starting on the patient's left side again, we advanced a hydrophilic tipped Raymundo coated guide wire through the ureteral orifice and all the way up to the renal pelvis under fluoroscopic visualization. We placed a #6 Dutch 22 cm double J stent on that side. We then passed the guide wire up to the renal pelvis on the right side and again we placed a #6 Dutch 22 cm double J stent. The stent on the left side was clearly too short and the proximal curl sat right at the ureteropelvic junction, so as we visualized there did appear to be the same problem on the right side as well. We used the rigid grasping forceps and we were able to remove both stents. Again on the right side we passed the guide wire up to the renal pelvis. We placed a #6 Dutch 24 cm double J stent. This stent did sit in excellent position. We then passed the guide wire up to the renal pelvis on the right side and again we passed a #6 Dutch 24 cm double J stent. Again this appeared to sit in excellent position as well. We then emptied the bladder, removed the cystoscope, and brought the patient to the post anesthesia care unit in stable condition. Plans were made to discharge the patient to home with follow-up being planned in the urology office. The patient tolerated the procedure well. There were no operative complications. Electronically Signed by: LION HURTADO M.D. 03/13/20 1544 LION HURTADO M.D. Date Dict: 03/13/20 1308 LION HURTADO M.D. Date trans: 03/13/20 2946 [facility] [id number] cc: LION HURTADO M.D., SHELLY K D.O. Normal [facility] URINE CULTUREon 03-13-2020 Bacteria identified Cx Nom (U) URINE CULTURE RESULT: INSIGNIFICANT GROWTH AT LESS THAN 10,000 CFU/ml Normal [facility] BASIC METABOLIC PROFILEon Anion gap [Moles/Vol] 9 mmol/L Normal -13 [facility] Comment on above: Performed By: #### C M #### [facility] CLIA # [id number] [address] [place] [address] Calcium [Mass/Vol] 9.1 mg/dL Normal 8.4-10.2 [facility] Comment on above: Performed By: #### C M #### [facility] CLIA # [id number] [address] [place] [address] Chloride [Moles/Vol] 102 mmol/L Normal 98-107 [facility] Comment on above: Performed By: #### C M #### [facility] CLIA # [id number] [address] [place] [address] CO2 [Moles/Vol] 27 mmol/L Normal 23-31 [facility] Comment on above: Performed By: #### C M #### [facility] CLIA # [id number] [address] [place] [address] Creatinine [Mass/Vol] 0.74 mg/dL Normal 0.57-1.11 [facility] Comment on above: Performed By: #### C M #### [facility] CLIA # [id number] [address] [place] [address] GFR/1.73 sq M.predicted MDRD (S/P/Bld) [Vol rate/Area] mL/min/{1.73_m2} Normal ml/min/1.7 3m2 [facility] Comment on above: Result Comment: GFR values >60 are not clinically significant. Performed By: #### C M #### [facility] CLIA # [id number] [address] [place] [address] Glucose [Mass/Vol] 84 mg/dL Normal 70-99 [facility] Comment on above: Performed By: #### C M #### [facility] CLIA # [id number] [address] [place] [address] Potassium [Moles/Vol] 4.3 mmol/L Normal 3.5-5.1 [facility] Comment on above: Performed By: #### C M #### [facility] CLIA # [id number] [address] [place] [address] Sodium [Moles/Vol] 138 mmol/L Normal 136-145 [facility] Comment on above: Performed By: #### C M #### [facility] CLIA # [id number] [address] [place] [address] Urea nitrogen [Mass/Vol] 14 mg/dL Normal 7-18 [facility] Comment on above: Performed By: #### C M #### [facility] CLIA # [id number] [address] [place] [address] COMPLETE BLOOD COUNT W/DIFFo n 03-11-2020 Basophils (Bld) [#/Vol] 0.0 10'3/uL Low 0.1-0.2 [facility] Comment on above: Performed By: #### C M #### [facility] CLIA # [id number] [address] [place] [address] Basophils/100 WBC (Bld) 0.4 % Normal 0.0-1.7 [facility] Comment on above: Performed By: #### C M #### [facility] CLIA # [id number] [address] [place] [address] Eosinophils (Bld) [#/Vol] 0.1 10'3/uL Normal 0.0-0.4 [facility] Comment on above: Performed By: #### C M #### [facility] CLIA # [id number] [address] [facility] [place] [address] Eosinophils/100 WBC (Bld) 1.0 % Normal 0.0-6.4 [facility] Comment on above: Performed By: #### C M #### [facility] CLIA # [id number] [address] [place] [address] Erythrocyte distribution width (RBC) [Ratio] 13.2 % Normal 12.2-15.8 [facility] Comment on above: Performed By: #### C M #### [facility] CLIA # [id number] [address] [place] [address] Hematocrit (Bld) [Volume fraction] 37.5 % Normal 34.6-44.1 [facility] Comment on above: Performed By: #### C M #### [facility] CLIA # [id number] [address] [facility] [place] [address] Hemoglobin (Bld) [Mass/Vol] 12.7 g/dL Normal 11.7-14.9 [facility] Comment on above: Performed By: #### C M #### [facility] CLIA # [id number] [address] [place] [address] Lymphocytes (Bld) [#/Vol] 2.4 10'3/uL Normal 0.5-3.5 [facility] Comment on above: Performed By: #### C M #### [facility] CLIA # [id number] [address] [place] [address] Lymphocytes/100 WBC (Bld) 31.6 % Normal 17.4-45.9 [facility] Comment on above: Performed By: #### C M #### [facility] CLIA # [id number] [address] [facility] [place] [address] MCH (RBC) [Entitic mass] 33.9 g/dL Normal 32.7-34.8 [facility] Comment on above: Performed By: #### C M #### [facility] CLIA # [id number] [address] [facility] [place] [address] MCH (RBC) [Entitic mass] 29.6 pg Normal 27.8-33.2 [facility] Comment on above: Performed By: #### C M #### [facility] CLIA # [id number] [address] [place] [address] MCV (RBC) [Entitic vol] 87.4 fL Normal 83.0-97.4 [facility] Comment on above: Performed By: #### C M #### [facility] CLIA # [id number] [address] [place] [address] Monocytes (Bld) [#/Vol] 0.6 10'3/uL Normal 0.2-0.8 [facility] Comment on above: Performed By: #### C M #### [facility] CLIA # [id number] [address] [place] [address] Monocytes/100 WBC (Bld) 7.4 % Normal 4.4-12.0 [facility] Comment on above: Performed By: #### C M #### [facility] CLIA # [id number] [address] [place] [address] Neutrophils (Bld) [#/Vol] 4.6 10'3/uL Normal 1.5-5.6 [facility] Comment on above: Performed By: #### C M #### [facility] CLIA # [id number] [address] [place] [address] Neutrophils/100 WBC (Bld) 59.6 % Normal 41.2-72.1 [facility] Comment on above: Performed By: #### C M #### [facility] CLIA # [id number] [address] [place] [address] Platelet mean volume (Bld) [Entitic vol] 9.2 fL Normal 7.6-10.6 [facility] Comment on above: Performed By: #### C M #### [facility] CLIA # [id number] [address] [place] [place] [address] Platelets (Bld) [#/Vol] 157 10'3/uL Normal 122-359 [facility] Comment on above: Performed By: #### C M #### [facility] CLIA # [id number] [address] [facility] [place] [address] RBC (Bld) [#/Vol] 4.29 10'6/uL Normal 3.85-4.88 [facility] Comment on above: Performed By: #### C M #### [facility] CLIA # [id number] [address] [facility] [place] [address] WBC (Bld) [#/Vol] 7.7 10'3/uL Normal 3.2-9.3 [facility] Comment on above: Performed By: #### C M #### [facility] CLIA # [id number] [address] [facility] [place] [address] COVID TEST ([facility] )on 02-21-2020 COVID TEST ([facility]) COVID TEST ([facility]) Negative for COVID19 (SARS CoV2) by PCR This test was developed and its performance characteristics determined by [facility] Pathology and Laboratory Medicine [employer]. This test has been authorized by FDA under an Emergency Use Authorization (EAU). This test has been validated in accordance with the FDA's Guidance Document Policy for Diagnostics Testing in Laboratories Certified to Perform High Complexity Testing under CLIA prior to Emergency Use Authorization for Coronavirus Disease 2019 during the Public Health Emergency issued on July 29, 2019. Test performed by: [facility] [employer], [address], [place] [id number] Iban Carroll III, M.D. Normal [facility] Comment on above: Order Comment: Has S pecimen Been Collected? YAntibiotics Taken/Given Before Culture Obtained: NReason for COVID Test Suspicion of COVID 19Implement Droplet PLUS Precautions (Y/N) Y BASIC METABOLIC PROFILEon GFR/1.73 sq M.predicted MDRD (S/P/Bld) [Vol rate/Area] mL/min/{1.73_m2} Normal ml/min/1.7 3m2 [facility] Comment on above: Result Comment: GFR values >60 are not clinically significant. Performed By: #### C P1, BM #### [facility] CLIA # [id number] [address] [place] [address] Anion gap [Moles/Vol] 11 mmol/L Normal 5-13 [facility] Comment on above: Performed By: #### C P1, BM #### [facility] CLIA # [id number] [address] [place] [address] Calcium [Mass/Vol] 9.7 mg/dL Normal 8.4-10.2 [facility] Comment on above: Performed By: #### C P1, BM #### [facility] CLIA # [id number] [address] [place] [address] Chloride [Moles/Vol] 103 mmol/L Normal 98-107 [facility] Comment on above: Performed By: #### C P1, BM #### [facility] CLIA # [id number] [address] [place] [address] CO2 [Moles/Vol] 25 mmol/L Normal 23-31 [facility] Comment on above: Performed By: #### C P1, BM #### [facility] CLIA # [id number] [address] [place] [address] Creatinine [Mass/Vol] 0.76 mg/dL Normal 0.57-1.11 [facility] Comment on above: Performed By: #### C P1, BM #### [facility] CLIA # [id number] [address] [place] [address] Glucose [Mass/Vol] 95 mg/dL Normal 70-99 [facility] Comment on above: Performed By: #### C P1, BM #### [facility] CLIA # [id number] [address] [place] [address] Potassium [Moles/Vol] 4.5 mmol/L Normal 3.5-5.1 [facility] Comment on above: Performed By: #### C P1, BM #### [facility] CLIA # [id number] [address] [place] [address] Sodium [Moles/Vol] 139 mmol/L Normal 136-145 [facility] Comment on above: Performed By: #### C P1, BM #### [facility] CLIA # [id number] [address] [place] [address] Urea nitrogen [Mass/Vol] 16 mg/dL Normal 7-18 [facility] Comment on above: Performed By: #### C P1, BM #### [facility] CLIA # [id number] [address] [place] [address] CARDIAC PROFILE #1on 020 Troponin I.cardiac [Mass/Vol] ng/mL Low 0.010-0.04 5 [facility] Comment on above: Performed By: #### C P1, BM #### [facility] CLIA # [id number] [address] [place] [address] CK.MB [Mass/Vol] 1.2 ng/mL Normal 1.0-3.6 [facility] Comment on above: Performed By: #### C P1, BM #### [facility] CLIA # [id number] [address] [place] [address] CREATINE PHOSPHOKINASE 32 U/L Normal 29-168 [facility] Comment on above: Performed By: #### C P1, BM #### [facility] CLIA # [id number] [address] [place] [address] CHEST - PORTABLEon 0 CHEST - PORTABLE [facility] Name: SHERRY ASH : 1945 Unit #: [id number] Age: 74 Attending Physician: Pt Location: ER Date of Service: 02/19/20 CHEST - PORTABLE INDICATION: Chest pain. Study: AP portable chest dated 02-19-20 at 1027 hours Comparison: 07-19-2019 FINDINGS: Allowing for lordotic positioning, the cardiomediastinal silhouette is normal. Pulmonary vascularity and hilar structures are normal. Minimal linear and curvilinear streaky densities are present in the retrocardiac left lung, stable. Costophrenic sulci are sharp. Bones are intact. IMPRESSION: Stable chest. No acute cardiopulmonary disease. Minimal scarring left lower lung. The emergency department was notified at the time of dictation. EXAM/ORDER VERIFICATION: Y PT/FAMILY VERBALIZES UNDERSTANDING OF EXAM Y PT SHIELDED N Is pt ? LMP TECH INITIALS AR COMMENTS Electronically Signed by: CHRIS BLOCK MD 02/19/20 1634 CHRIS BLOCK MD Date Dict: 02/19/20 1055 CHRIS BLOCK MD Date Trans: 02/19/20 1623 [facility] [id number] cc: MYRNA ALVARENGA D.O., JAY B MD-ER Normal [facility] COMPLETE BLOOD COUNT W/DIFFo n 02-19-2020 Basophils (Bld) [#/Vol] 0.0 10'3/uL Low 0.1-0.2 [facility] Comment on above: Performed By: #### C P1, BM #### [facility] CLIA # [id number] [address] [place] [address] Basophils/100 WBC (Bld) 0.4 % Normal 0.0-1.7 [facility] Comment on above: Performed By: #### C P1, BM #### [facility] CLIA # [id number] [address] [place] [address] Eosinophils (Bld) [#/Vol] 0.1 10'3/uL Normal 0.0-0.4 [facility] Comment on above: Performed By: #### C P1, BM #### [facility] CLIA # [id number] [address] [place] [address] Eosinophils/100 WBC (Bld) 0.7 % Normal 0.0-6.4 [facility] Comment on above: Performed By: #### C P1, BM #### [facility] CLIA # [id number] [address] [place] [address] Erythrocyte distribution width (RBC) [Ratio] 13.1 % Normal 12.2-15.8 [facility] Comment on above: Performed By: #### C P1, BM #### [facility] CLIA # [id number] [address] [place] [address] Hematocrit (Bld) [Volume fraction] 41.3 % Normal 34.6-44.1 [facility] Comment on above: Performed By: #### C P1, BM #### [facility] CLIA # [id number] [address] [place] [address] Hemoglobin (Bld) [Mass/Vol] 13.8 g/dL Normal 11.7-14.9 [facility] Comment on above: Performed By: #### C P1, BM #### [facility] CLIA # [id number] [address] [place] [address] Lymphocytes (Bld) [#/Vol] 1.3 10'3/uL Normal 0.5-3.5 [facility] Comment on above: Performed By: #### C P1, BM #### [facility] CLIA # [id number] [address] [place] [address] Lymphocytes/100 WBC (Bld) 18.6 % Normal 17.4-45.9 [facility] Comment on above: Performed By: #### C P1, BM #### [facility] CLIA # [id number] [address] [place] [address] MCH (RBC) [Entitic mass] 33.4 g/dL Normal 32.7-34.8 [facility] Comment on above: Performed By: #### C P1, BM #### [facility] CLIA # [id number] [address] [place] [address] MCH (RBC) [Entitic mass] 29.5 pg Normal 27.8-33.2 [facility] Comment on above: Performed By: #### C P1, BM #### [facility] CLIA # [id number] [address] [place] [address] MCV (RBC) [Entitic vol] 88.2 fL Normal 83.0-97.4 [facility] Comment on above: Performed By: #### C P1, BM #### [facility] CLIA # [id number] [address] [place] [address] Monocytes (Bld) [#/Vol] 0.4 10'3/uL Normal 0.2-0.8 [facility] Comment on above: Performed By: #### C P1, BM #### [facility] CLIA # [id number] [address] [place] [address] Monocytes/100 WBC (Bld) 5.6 % Normal 4.4-12.0 [facility] Comment on above: Performed By: #### C P1, BM #### [facility] CLIA # [id number] [address] [place] [address] Neutrophils (Bld) [#/Vol] 5.0 10'3/uL Normal 1.5-5.6 [facility] Comment on above: Performed By: #### C P1, BM #### [facility] CLIA # [id number] [address] [place] [address] Neutrophils/100 WBC (Bld) 74.7 % High 41.2-72.1 [facility] Comment on above: Performed By: #### C P1, BM #### [facility] CLIA # [id number] [address] [place] [address] Platelet mean volume (Bld) [Entitic vol] 9.8 fL Normal 7.6-10.6 [facility] Comment on above: Performed By: #### C P1, BM #### [facility] CLIA # [id number] [address] [place] [address] Platelets (Bld) [#/Vol] 164 10'3/uL Normal 122-359 [facility] Comment on above: Performed By: #### C P1, BM #### [facility] CLIA # [id number] [address] [place] [address] RBC (Bld) [#/Vol] 4.68 10'6/uL Normal 3.85-4.88 [facility] Comment on above: Performed By: #### C P1, BM #### [facility] CLIA # [id number] [address] [place] [address] WBC (Bld) [#/Vol] 6.8 10'3/uL Normal 3.2-9.3 [facility] Comment on above: Performed By: #### C P1, BM #### [facility] CLIA # [id number] [address] [place] [address] HISTORY PRESENT ILLNESSon HISTORY PRESENT ILLNESS Name: SHERRY ASH : 1945 Unit #: [id number] Age: 74 Family Physician: Pt Location: ER Arrival Date 02/19/201012 ER Physician: HUGH JULIAN MD-ER [facility] EMERGENCY ROOM History of Present Illness History of Present Illness Time Seen: 10:29 History of Present Illness The patient is a 74 year old female who presented to the Emergency Department with the complaint of loss of taste, frequent sweating with exertion. Patient reports symptom going on since November. She has been seen by surgery and has had an upper endoscopy which showed a little bit of reflux but was otherwise negative. She has been seen by her personal physician who has got sinus x-rays on this patient is well as a CT scan of her abdomen and pelvis which was negative. Her doctor put her on something for her nerves. Patient presents here today because of continued back to taste in her mouth and then later on she states she just cannot eat anything. She denies any chest pain. No nausea vomiting but does report exertional diaphoresis. She reports even with slight exertion that she has diaphoresis but denies any chest pain. No lower extremity edema or calf tenderness. She denies any fevers or chills. She denies any other mitigating precipitating or exacerbating factors. Past Medical History Past Medical History Pertinent Medical History: Allergies, Anxiety, Depression, High Cholesterol, Respiratory Infections Pertinent Surgical History: Appendectomy, Cholecystectomy, Hysterectomy w/ BSO, Tubal Ligation Other Pertinent History: GERD, esophagal dilitation, Lt. Fratured ankle Family History Significant Family Medical Hx: No Significant History Social History Marital Status W / Smoking Status: Former Smoker Smoking Duration: 39 Allergies Allergies: Coded Allergies: oxycodone (Verified Allergy, Severe, Red skin, Difficulty breathing, headache, 11/30/19) Penicillins (Verified Allergy, Mild, Rash, 11/30/19) Quinolones (Verified Allergy, Mild, Rash, 11/30/19) Contrast Media (Verified Allergy, Unknown, 11/30/19) BODY ON FIRE acetaminophen (Verified Allergy, Unknown, 11/30/19) albuterol (Verified Allergy, Unknown, HEADACHE,NAUSEA, 11/30/19) doxycycline (Verified Allergy, Unknown, TEARS UP STOMACH- CAUSES ALOT OF PAIN, 11/30/19) fluconazole (Verified Allergy, Unknown, 11/30/19) EYES BURNING moxifloxacin (Verified Allergy, Unknown, 11/30/19) hydrocodone (Verified Adverse Reaction, Intermediate, makes me Wacky , 11/30/19) Home Medications Home Medications See Reconcile Meds Review of Systems Review of Systems All Other Systems: Reviewed and Negative Physical Exam Physical Exam Initial Vital Signs Vital Signs Date Time Temp Pulse Resp B/P (MAP) Pulse Ox O2 Delivery O2 Flow Rate FiO2 02/19/20 10:25 71 02/19/20 10:25 97.3 16 193/76 97 Room Air 110/58 General Appearance: No apparent distress HEENT: Atraumatic, PERRL, Pharynx normal Neck: Normal Inspection, Soft and Supple Respiratory: Normal inspection, Easy effort, No rales, No rhonchi, No wheezes, No respiratory distress Cardiovascular: Regular rate and rhythm, Normal S1 and S2 Gastrointestinal: Soft, Non-tender, Nondistended, No guarding Musculoskeletal: Normal inspection, No pedal edema, No swelling, No tenderness Neurologic/Psychiatric: Alert, Oriented x3, Normal mood/affect, Non-focal neuro exam Skin: Normal color, Warm/dry, No rash Course of Treatment Medical Decision Making Medical Decision Making With this patient having episode diaphoresis with exertion, I have initiated a cardiac workup. Medications Medications given in ED Medications Given in ED Sodium Chloride (0.9% Sodium Chloride) 1-4 SYRINGES (3 ML) PRN PRN IV PUSH FLUSH; Start 02/19/20 at 10:30; Stop 04/19/20 at 10:31 Sodium Chloride 250 ml @ 10 mls/hr Q24H PRN IV FLUSH; Start 02/19/20 at 10:29 EKG EKG Comments EKG as interpreted by myself as showing sinus rhythm with inverted T-waves inferiorly and laterally. Comparing this to an old EKG, there is no significant change. Laboratory Laboratory Results: WNL except as listed Labs Laboratory Tests Test 02/19/20 10:45 White Blood Count 6.8 10'3/uL (3.2-9.3) Red Blood Count 4.68 10'6/uL (3.85-4.88) Hemoglobin 13.8 g/dL (11.7-14.9) Hematocrit 41.3 % (34.6-44.1) Mean Corpuscular Volume 88.2 fL (83.0-97.4) Mean Corpuscular Hemoglobin 29.5 pg (27.8-33.2) Mean Corpuscular Hgb Concent Diff 33.4 g/dL (32.7-34.8) Red Cell Distribution Width 13.1 % (12.2-15.8) Platelet Count 164 10'3/uL (122-359) Mean Platelet Volume 9.8 fL (7.6-10.6) Neutrophils (%) (Auto) 74.7 % (41.2-72.1) Absolute Neutrophils (auto) 5.0 10'3/uL (1.5-5.6) Absolute Lymphocytes (auto) 1.3 10'3/uL (0.5-3.5) Absolute Monocytes (auto) 0.4 10'3/uL (0.2-0.8) Absolute Eosinophils (auto) 0.1 10'3/uL (0.0-0.4) Absolute Basophils (auto) 0.0 10'3/uL (0.1-0.2) Lymphocytes % 18.6 % (17.4-45.9) Monocytes % 5.6 % (4.4-12.0) Eosinophils % 0.7 % (0.0-6.4) Basophils % 0.4 % (0.0-1.7) Prothrombin Time 10.1 SECONDS (9.54-10.90) Prothromb Time International Ratio 0.93 (0.86-1.15) Activated Partial Thromboplast Time 27.4 SECONDS (24.49-30.30) Sodium Level 139 mmol/L (136-145) Potassium Level 4.5 mmol/L (3.5-5.1) Chloride Level 103 mmol/L (98-107) Carbon Dioxide Level 25 mmol/L (23-31) Anion Gap 11 mEq/L (5-13) Blood Urea Nitrogen 16 mg/dL (7-18) Creatinine 0.76 mg/dL (0.57-1.11) Estimat Glomerular Filtration Rate > 60 (ml/min/1.73m2) Glucose Level 95 mg/dL (70-99) Calcium Level 9.7 mg/dL (8.4-10.2) Total Creatine Kinase 32 U/L (29-168) Creatine Kinase MB 1.2 ng/ml (1.0-3.6) Troponin I < 0.010 ng/mL (0.010-0.045) Microbiology Date/Time Source Procedure Growth Status 02/19/20 10:50 Nasopharyngeal Coronavirus COVID-19 PCR (SIL) Pending Received Abnormal Results Test 02/19/20 10:45 Neutrophils (%) (Auto) 74.7 % Absolute Basophils (auto) 0.0 10'3/uL Troponin I < 0.010 ng/mL Radiology/CT/US X-Ray Exams: Chest Portable X-Rays - Interpretation: ED Preliminary Interpretation - No acute process Progress #1 Time Patient Reassessed: 12:17 Repeat Vital Signs Vital Signs Date Time Temp Pulse Resp B/P (MAP) Pulse Ox O2 Delivery O2 Flow Rate FiO2 02/19/20 11:01 98 02/19/20 10:25 97.3 80 16 193/76 97 Room Air 110/58 02/19/20 10:25 71 Re-Evaluation Patient is currently requesting to be discharge. My workup is just concluded with exception of COVID test. Her workup is negative. I do not have a good etiology for symptoms but I do not feel there is anything life-threatening going on. Symptoms have been going on since November. I do think that evaluation from ENT may be appropriate. Patient has been referred back to her personal physician. Departure Departure Disposition: Home Diagnosis: Primary Impression: Dyspepsia Condition: Good Patient Instructions: Gastroesophageal Reflux Disease (ED) Referrals: MYRNA ALVARENGA D.O. (PCP) 1-2 Days Home Medications: Reviewed Scripts Pantoprazole Sodium (Protonix) 20 Mg Tablet.dr 1 TAB PO DAILY, #30 TAB Prov: HUGH JULIAN MD-ER 02/19/20 HUGH JULIAN MD-ER Feb 19, 2020 11:12 (Please note that portions of this note were completed with a voice recognition program. Efforts were made to edit the dictations but occasionally words are mis-transcribed.) Electronically Signed by: HUGH JULIAN MD 02/19/20 1220 HUGH JULIAN MD [phone] cc: Normal [facility] PARTIAL THROMBOPLASTIN TIMEo n 02-19-2020 aPTT Coag (Bld) [Time] 27.4 s Normal 24.49 -30.3 0 [facility] Comment on above: Result Comment: APTT THERAPEUTIC RANGE = 45.1-70.7 SECONDS Performed By: #### P T, PTT #### [facility] CLIA # [id number] [address] [place] [address] PROTHROMBIN TIME / INRon INR Coag (PPP) [Relative time] 0.93 {INR} Normal 0.86-1.15 [facility] Comment on above: Result Comment: ELIAN GUEVARA I.N.R. RANGES FOR ORAL ANTICOAGULANT THERAPY CONDITION RECOMMENDED I.N.R. DEEP VEIN THROMBOSIS.....................2.0 - 3.0 ACUTE MYOCARDIAL INFARCTION .............3.0 - 4.5 ATRIAL FIBRILLATION .....................2.0 - 3.0 CARDIAC VALVE REPLACEMENT (tissue).......2.0 - 3.0 CARDIAC VALVE REPLACEMENT (mechanical)...2.5 - 3.5 Performed By: #### P T, PTT #### [facility] CLIA # [id number] [address] [place] [address] PT Coag (PPP) [Time] 10.1 s Normal 9.54-10.90 [facility] Comment on above: Performed By: #### P T, PTT #### [facility] CLIA # [id number] [address] [place] [address] CT ABD/PEL ORAL CONTRAST ONL Yon 02-09-2020 CT ABD/PEL ORAL CONTRAST ONLY [facility] Name: SHERRY ASH : 1945 Unit #: [id number] Age: 74 Attending Physician: MYRNA ALVARENGA D.O., Pt Location: RAD-CT/NM Date of Service: 02/09/20 CT ABD/PEL ORAL CONTRAST ONLY HISTORY: Abdominal distention Study: CT abdomen and pelvis with oral contrast dated 02/09/2020. 10:54 a.m. TECHNIQUE: Axial images were obtained from the dome of the diaphragm down to the symphysis pubis without oral or IV contrast. Coronal and sagittal reconstruction imaging was performed. Coronal MPR images were reconstructed from the 3D data set. Individualized dose optimization techniques were used for the CT scan. Findings: Comparison is made with 04/03/2019. A tiny benign nodule is redemonstrated in the right lower lobe. The rest of the lung bases are clear Within the abdomen, the patient has had a previous cholecystectomy. The cobb of the gastric antrum are slightly thickened. This could be related to gastritis or possibly simply incomplete distention. The liver and spleen are normal. The pancreas and adrenal glands are normal. Incidental note is made of extrarenal pelvis bilaterally. Sigmoid diverticulosis is present. Bladder contours are smooth. No free fluid in the abdomen or pelvis. IMPRESSION: Moderate wall thickening of the gastric antrum which may be related to incomplete distention or possibly gastritis. Correlation with the site of the patient's pain is recommended. EXAM/ORDER VERIFICATION: Y PT/FAMILY VERBALIZES UNDERSTANDING OF EXAM Y PT SHIELDED N Is pt ? LMP TECH INITIALS RE COMMENTS Electronically Signed by: MIHIR MYERS M.D. 02/09/20 1147 MIHIR MYERS M.D. Date Dict: 02/09/20 114 MIHIR MYERS M.D. Date Trans: 02/09/[address] [facility] [phone] cc: MYRNA ALVARENGA D.O. [facility] Addendum Name: SHERRY ASH : 1945 Unit #: [id number] Age: 74 Attending Physician: MYRNA ALVARENGA D.O., Pt Location: [facility]-CT/DC Date of Service: 02/09/20 ADDENDUM: Technique should be as follows: TECHNIQUE: Axial images were obtained from the dome of the diaphragm down to the symphysis pubis. 900 ml barium sulfate was given orally. Coronal and sagittal reconstruction imaging was performed. Individualized dose optimization techniques were used for the CT scan. Electronically Signed by: IMHIR MYERS M.D. 02/09/20 1147 MIHIR MYERS M.D. Date Dict: 02/09/20 114 MIHIR MYERS M.D. Date Trans: 02/09/[address] [facility] [phone] cc: MYRNA ALVARENGA D.O. Normal [facility] SINUS SERIES MIN 3 VIEWSon 0 02-08-2020 SINUS SERIES MIN 3 VIEWS [facility] Name: SHERRY ASH : 1945 Unit #: [id number] Age: 74 Attending Physician: MYRNA ALVARENGA D.O. Pt Location: [facility] Date of Service: 02/07/20 SINUS SERIES MIN 3 VIEWS HISTORY: Abnormal taste in mouth. Study: Sinus series AP, Tessie view, Pedro view and lateral views dated 02/07/2020. 1515 hours Findings: The paranasal sinuses are clear. The nasal cavity appears to be clear. The septum is midline. No air fluid levels or bony erosive changes. IMPRESSION: No evidence of sinus abnormality. EXAM/ORDER VERIFICATION: Y PT/FAMILY VERBALIZES UNDERSTANDING OF EXAM Y PT SHIELDED Y Is pt ? LMP TECH INITIALS KZ COMMENTS Electronically Signed by: MIHIR MYERS M.D. 02/08/2036 MIHIR MYERS M.D. Date Dict: 02/08/20832 MIHIR MYERS M.D. Date Trans: 02/08/[address] [facility] [phone] cc: MYRNA ALVARENGA D.O. Normal [facility] T3 FREEon 01-18-2020 Free T3 [Mass/Vol] 2.5 pg/mL Normal 2.3-4.2 [facility] Comment on above: Result Comment: Test Performed by Greg Obrien, [employer] [facility], [address] [place] [address] Srikanth Fuller M.D., Ph.D., Director of Laboratories , CLIA [id number] Performed By: #### C P1, BM #### [facility] CLIA # [id number] [place] [address] COMPLETE BLOOD COUNT W/DIFFo n 01-15-2020 Basophils (Bld) [#/Vol] 0.1 10'3/uL Normal 0.1-0.2 [facility] Comment on above: Performed By: #### C P1, BM #### [facility] CLIA # [id number] [address] [facility] [place] [address] Basophils/100 WBC (Bld) 0.6 % Normal 0.0-1.7 [facility] Comment on above: Performed By: #### C P1, BM #### [facility] CLIA # [id number] [address] [place] [address] Eosinophils (Bld) [#/Vol] 0.1 10'3/uL Normal 0.0-0.4 [facility] Comment on above: Performed By: #### C P1, BM #### [facility] CLIA # [id number] [address] [place] [address] Eosinophils/100 WBC (Bld) 1.1 % Normal 0.0-6.4 [facility] Comment on above: Performed By: #### C P1, BM #### [facility] CLIA # [id number] [address] [place] [address] Erythrocyte distribution width (RBC) [Ratio] 13.0 % Normal 12.2-15.8 [facility] Comment on above: Performed By: #### C P1, BM #### [facility] CLIA # [id number] [address] [place] [address] Hematocrit (Bld) [Volume fraction] 38.7 % Normal 34.6-44.1 [facility] Comment on above: Performed By: #### C P1, BM #### [facility] CLIA # [id number] [address] [place] [address] Hemoglobin (Bld) [Mass/Vol] 12.9 g/dL Normal 11.7-14.9 [facility] Comment on above: Performed By: #### C P1, BM #### [facility] CLIA # [id number] [address] [place] [address] Lymphocytes (Bld) [#/Vol] 1.5 10'3/uL Normal 0.5-3.5 [facility] Comment on above: Performed By: #### C P1, BM #### [facility] CLIA # [id number] [address] [place] [address] Lymphocytes/100 WBC (Bld) 18.0 % Normal 17.4-45.9 [facility] Comment on above: Performed By: #### C P1, BM #### [facility] CLIA # [id number] [address] [facility] [place] [address] MCH (RBC) [Entitic mass] 29.1 pg Normal 27.8-33.2 [facility] Comment on above: Performed By: #### C P1, BM #### [facility] CLIA # [id number] [address] [facility] [place] [address] MCH (RBC) [Entitic mass] 33.3 g/dL Normal 32.7-34.8 [facility] Comment on above: Performed By: #### C P1, BM #### [facility] CLIA # [id number] [address] [place] [address] MCV (RBC) [Entitic vol] 87.4 fL Normal 83.0-97.4 [facility] Comment on above: Performed By: #### C P1, BM #### [facility] CLIA # [id number] [address] [place] [address] Monocytes (Bld) [#/Vol] 0.5 10'3/uL Normal 0.2-0.8 [facility] Comment on above: Performed By: #### C P1, BM #### [facility] CLIA # [id number] [address] [place] [address] Monocytes/100 WBC (Bld) 5.9 % Normal 4.4-12.0 [facility] Comment on above: Performed By: #### C P1, BM #### [facility] CLIA # [id number] [address] [place] [address] Neutrophils (Bld) [#/Vol] 6.1 10'3/uL High 1.5-5.6 [facility] Comment on above: Performed By: #### C P1, BM #### [facility] CLIA # [id number] [address] [place] [address] Neutrophils/100 WBC (Bld) 74.4 % High 41.2-72.1 [facility] Comment on above: Performed By: #### C P1, BM #### [facility] CLIA # [id number] [address] [place] [address] Platelet mean volume (Bld) [Entitic vol] 9.8 fL Normal 7.6-10.6 [facility] Comment on above: Performed By: #### C P1, BM #### [facility] CLIA # [id number] [address] [place] [address] Platelets (Bld) [#/Vol] 215 10'3/uL Normal 122-359 [facility] Comment on above: Performed By: #### C P1, BM #### [facility] CLIA # [id number] [address] [place] [address] RBC (Bld) [#/Vol] 4.43 10'6/uL Normal 3.85-4.88 [facility] Comment on above: Performed By: #### C P1, BM #### [facility] CLIA # [id number] [address] [place] [address] WBC (Bld) [#/Vol] 8.3 10'3/uL Normal 3.2-9.3 [facility] Comment on above: Performed By: #### C P1, BM #### [facility] CLIA # [id number] [address] [place] [address] COMPREHENSIVE METABOLIC PROF on 01-15-2020 GFR/1.73 sq M.predicted MDRD (S/P/Bld) [Vol rate/Area] mL/min/{1.73_m2} Normal ml/min/1.7 3m2 [facility] Comment on above: Result Comment: GFR values >60 are not clinically significant. Performed By: #### F T4, CM, TSH #### [facility] CLIA # [id number] [address] [place] [address] Albumin [Mass/Vol] 4.6 g/dL Normal 3.2-4.6 [facility] Comment on above: Performed By: #### F T4, CM, TSH #### [facility] CLIA # [id number] [address] [place] [address] ALP [Catalytic activity/Vol] 75 U/L Normal 40-150 [facility] Comment on above: Performed By: #### F T4, CM, TSH #### [facility] CLIA # [id number] [address] [place] [address] ALT/SGPT 18 U/L Normal 0-55 [facility] Comment on above: Performed By: #### F T4, CM, TSH #### [facility] CLIA # [id number] [address] [place] [address] Anion gap [Moles/Vol] 8 mmol/L Normal 5-13 [facility] Comment on above: Performed By: #### F T4, CM, TSH #### [facility] CLIA # [id number] [address] [place] [address] AST/SGOT 20 U/L Normal 5-34 [facility] Comment on above: Performed By: #### F T4, CM, TSH #### [facility] CLIA # [id number] [address] [place] [address] Bilirubin [Mass/Vol] 0.5 mg/dL Normal 0.0-1.0 [facility] Comment on above: Performed By: #### F T4, CM, TSH #### [facility] CLIA # [id number] [address] [place] [address] Calcium [Mass/Vol] 9.5 mg/dL Normal 8.4-10.2 [facility] Comment on above: Performed By: #### F T4, CM, TSH #### [facility] CLIA # [id number] [address] [place] [address] Chloride [Moles/Vol] 101 mmol/L Normal 98-107 [facility] Comment on above: Performed By: #### F T4, CM, TSH #### [facility] CLIA # [id number] [address] [place] [place] [address] CO2 [Moles/Vol] 26 mmol/L Normal 23-31 [facility] Comment on above: Performed By: #### F T4, CM, TSH #### [facility] CLIA # [id number] [address] [place] [address] Creatinine [Mass/Vol] 0.79 mg/dL Normal 0.57-1.11 [facility] Comment on above: Performed By: #### F T4, CM, TSH #### [facility] CLIA # [id number] [address] [place] [address] Glucose [Mass/Vol] 128 mg/dL High 70-99 [facility] Comment on above: Performed By: #### F T4, CM, TSH #### [facility] CLIA # [id number] [address] [place] [address] Potassium [Moles/Vol] 4.0 mmol/L Normal 3.5-5.1 [facility] Comment on above: Performed By: #### F T4, CM, TSH #### [facility] CLIA # [id number] [address] [place] [address] Protein [Mass/Vol] 7.2 g/dL Normal 6.4-8.2 [facility] Comment on above: Performed By: #### F T4, CM, TSH #### [facility] CLIA # [id number] [address] [place] [address] Sodium [Moles/Vol] 135 mmol/L Low 136-145 [facility] Comment on above: Performed By: #### F T4, CM, TSH #### [facility] CLIA # [id number] [address] [place] [address] Urea nitrogen [Mass/Vol] 17 mg/dL Normal 7-18 [facility] Comment on above: Performed By: #### F T4, CM, TSH #### [facility] CLIA # [id number] [address] [place] [address] FREE,T4on 01-15-2020 Free T4 [Mass/Vol] 0.98 ng/dL Normal 0.59-1.17 [facility] Comment on above: Performed By: #### F T4, CM, TSH #### [facility] CLIA # [id number] [address] [place] [address] TSH 3RD GENERATIONon 020 TSH 3RD GENERATION 2.722 uIU/mL Normal 0.358-3.74 [facility] Comment on above: Performed By: #### F T4, CM, TSH #### [facility] CLIA # [id number] [address] [place] [address] ENDORPTon 11-30-2019 ENDORPT [facility] Name: SHERRY ASH : 1945 Unit: [id number] Age: 73 Attending Physician: MELISSA LOPEZ M.D. Pt Location: [facility] Date of Service: ENDOSCOPY REPORT ESOPHAGOGASTRODUODENOSCOPY REPORT PATIENT NAME: Sherry Ash (Null) : 1945 AGE: 73 SEX: F EXAM DATE: 11-30-2019 ATTENDING PHY: Melissa Lopez M.D. REFERRAL: MYRNA ALVARENGA ACCOUNT NO: [id number] TIME Start:9:39AM End: 9:44 AM ASST/NURSE : Jayda Whitten RN CONSENT : Informed consent was obtained from the patient after providing any opportunity for questions. PREPARATION : EKG pulse, blood pressure and oxygen saturation monitored. INSTRUMENT : G5 [id number] SN#: [id number] WIRE REPAIRER : Raleigh Hollins CRNA. ANESTHESIA : As Per Anesthesia Propofol 90mg IV slowly divided doses EBL : minimal PROCEDURE : The Gastroscope was gently passed through the incisoral orifice into the oral cavity and under direct visualization the esophagus was intubated. The endoscope was passed down the esophagus, through the stomach and into the 2nd Portion. Color, texture, mucosa and anatomy of Esophagus, Stomach and Duodenum were carefully examined with the scope. The patient tolerated the procedure well and there were no complications. After completion of the examination, patient was transferred to the recovery room. FINDINGS Oropharynx - Normal Esophagus - Multiple biopsies taken for rule out esophagitis. EG-Junction - Multiple biopsies taken to rule out esophagitis. Minimal color change of distal esophagus. No obvious hiatal hernia. Cardia - Normal Fundus - Normal Body - Normal Antrum - Gastritis, acute without bleeding and mild Pylorus - Normal Duodenum Bulb - Normal 2nd Portion - Normal 3rd Portion - Not Seen IMPRESSION : Acute gastritis without bleeding - K29.00 PLAN : Wait for pathology report, patient already on PPI medication This report has been reviewed by attending physician Electronic Signature: ' Date: 11/30/2019 9:48:56 AM' Melissa Lopez M.D. Electronically Signed by: MELISSA LOPEZ M.D. 11/30/19 0949 MELISSA LOPEZ M.D. Date Dict: 11/30/19 1200 MELISSA LOPEZ M.D. Date trans: 11/30/[address] [place] [phone] cc: MYRNA ALVARENGA D.O., BETH A M.D. Normal [facility] PATHOLOGYon 11-30-[address] [place] # [id number] Name: SHERRY ASH Age/Sex: 73/F Attend Dr: MELISSA LOPEZ M.D. Unit#: [id number] Status: [facility] Location: ENDO Re11/30/19 Disch: : 1945 CLINICAL DIAGNOSIS GERD SURGICAL PROCEDURE: EGD PERTINENT CLINICAL INFORMATION: 1. ESOPHAGUS, BIOPSY 2. ESOPHAGUS, BIOPSY - GE JUNCTION GROSS DESCRIPTION Specimen #1: The specimen is labeled as biopsy, esophagus. It is received in formalin and consists of one fragment of white soft tissue measuring 0.5 x 0.1 x 0.1cm. The entire specimen is submitted in one cassette. Specimen #2: The specimen is labeled as biopsy, gastroesophageal junction. It is received in formalin and consists of three fragments of white soft tissue that range from 0.3 x 0.1 x 0.1cm to 0.3 x 0.2 x 0.1cm. The entire specimen is submitted in one cassette. MCP MICROSCOPIC DESCRIPTION Specimen #1 & Specimen #2: Sections from the biopsy of esophagus and gastroesophageal junction both show fragments of squamous mucosa showing no significant histological changes. Negative for dysplasia or malignancy. FINAL DIAGNOSIS Specimen #1: Biopsy, esophagus: * Fragment of squamous mucosa showing no significant histological changes. Code 1 Specimen #2: Biopsy, gastroesophageal junction: * Fragments of squamous mucosa showing no significant histological changes. Code [address] Ebony Garcia on 12/04/2019 at 1054. Transcribed by:12/04/19 - 1142 [facility] CODES: [id number] - ESOPHAGUS, BIOP COPIES TO: MYRNA ALVARENGA D.O. [address] [address] [facility] # [id number] Name: SHERRY ASH Age/Sex: 73/F Attend Dr: MELISSA LOPEZ M.D. Unit#: [id number] Status: [facility] Location: ENDO Re11/30/19 Disch: : 1945 COPIES TO: (Continued) MELISSA LOPEZ M.D. [address] [place] [address] [id number] PROCEDURES: MIC3 (11/30/19) Signed (signature on file) Ebony Garcia M.D 12/04/19 1236 LABORATORY Normal [facility] Comment on above: Performed By: #### C P1, BM #### [facility] CLIA # [id number] [address] [place] [address] BONE DENSITOMETRY SCAN - DEX Aon 11-27-2019 BONE DENSITOMETRY SCAN - DEXA [facility] Name: SHERRY ASH : 1945 Unit #: [id number] Age: 73 Attending Physician: JOY WAN Pt Location: [facility] Date of Service: 11/27/19 BONE DENSITOMETRY SCAN - DEXA HISTORY: Postmenopausal STUDY: Bone densitometry exam dated 11/27/2019. 10:05 a.m. CENTRAL SKELETAL BONE MINERAL DENSITY STUDY: Bone mineral density (BMD) evaluation of the lumbar spine and hip was performed using DEXA technique and compared to normal and age-matched controls. BMD of the lumbar spine is 1.178 g/cm2 with a T-value of -0.3 and of the hip is 0.796 g/cm2 with a T-value of -1.5. Bone mineral density in the hip is considered osteopenic according to World Health Organization criteria. IMPRESSION: Osteopenia. [employer] RECOMMENDATIONS: 1) Weight bearing exercise three hours or times weekly. 2) Calcium supplements. 3) Repeat DEXA evaluation in two years. 10-year risk of any fracture is 24%. 10-year risk of hip fracture is 5%. EXAM/ORDER VERIFICATION: Y PT/FAMILY VERBALIZES UNDERSTANDING OF EXAM Y PT SHIELDED N Is pt ? LMP TECH INITIALS RW COMMENTS Electronically Signed by: MIHIR MYERS M.D. 11/28/19 1228 MIHIR MYERS M.D. Date Dict: 11/27/191218 MIHIR MYERS M.D. Date Trans: 11/27/[address] [facility] [phone] cc: JOY WAN SHELLY K D.O. Normal [facility] COMPREHENSIVE METABOLIC PROF on 11-27-2019 GFR/1.73 sq M.predicted MDRD (S/P/Bld) [Vol rate/Area] mL/min/{1.73_m2} Normal ml/min/1.7 3m2 [facility] Comment on above: Result Comment: GFR values >60 are not clinically significant. Performed By: #### C M #### [facility] CLIA # [id number] [address] [place] [address] Albumin [Mass/Vol] 4.6 g/dL Normal 3.2-4.6 [facility] Comment on above: Performed By: #### C M #### [facility] CLIA # [id number] [address] [place] [address] ALP [Catalytic activity/Vol] 69 U/L Normal 40-150 [facility] Comment on above: Performed By: #### C M #### [facility] CLIA # [id number] [address] [place] [address] ALT/SGPT 22 U/L Normal 0-55 [facility] Comment on above: Performed By: #### C M #### [facility] CLIA # [id number] [address] [place] [address] Anion gap [Moles/Vol] 11 mmol/L Normal 5-13 [facility] Comment on above: Performed By: #### C M #### [facility] CLIA # [id number] [address] [place] [address] AST/SGOT 25 U/L Normal 5-34 [facility] Comment on above: Performed By: #### C M #### [facility] CLIA # [id number] [address] [place] [address] Bilirubin [Mass/Vol] 0.6 mg/dL Normal 0.0-1.0 [facility] Comment on above: Performed By: #### C M #### [facility] CLIA # [id number] [address] [place] [address] Calcium [Mass/Vol] 9.5 mg/dL Normal 8.4-10.2 [facility] Comment on above: Performed By: #### C M #### [facility] CLIA # [id number] [address] [place] [address] Chloride [Moles/Vol] 104 mmol/L Normal 98-107 [facility] Comment on above: Performed By: #### C M #### [facility] CLIA # [id number] [address] [place] [address] CO2 [Moles/Vol] 24 mmol/L Normal 23-31 [facility] Comment on above: Performed By: #### C M #### [facility] CLIA # [id number] [address] [place] [address] Creatinine [Mass/Vol] 0.90 mg/dL Normal 0.57-1.11 [facility] Comment on above: Performed By: #### C M #### [facility] CLIA # [id number] [address] [place] [address] Glucose [Mass/Vol] 116 mg/dL High 70-99 [facility] Comment on above: Performed By: #### C M #### [facility] CLIA # [id number] [address] [place] [address] Potassium [Moles/Vol] 4.4 mmol/L Normal 3.5-5.1 [facility] Comment on above: Performed By: #### C M #### [facility] CLIA # [id number] [address] [place] [address] Protein [Mass/Vol] 7.2 g/dL Normal 6.4-8.2 [facility] Comment on above: Performed By: #### C M #### [facility] CLIA # [id number] [address] [place] [address] Sodium [Moles/Vol] 139 mmol/L Normal 136-145 [facility] Comment on above: Performed By: #### C M #### [facility] CLIA # [id number] [address] [place] [address] Urea nitrogen [Mass/Vol] 18 mg/dL Normal 7-18 [facility] Comment on above: Performed By: #### C M #### [facility] CLIA # [id number] [address] [place] [address] VITAMIN D 25-OHon 11-27-2019 VITAMIN D 25-OH 52.2 ng/mL Normal 30-100 [facility] Comment on above: Performed By: #### V ITD #### [facility] CLIA # [id number] [address] [place] [address] LIPID PROFILEon 11-07-2019 Cholesterol [Mass/Vol] 186 mg/dL Normal <200 [facility] Comment on above: Performed By: #### L IPPRO #### [facility] CLIA # [id number] [address] [place] [address] Cholesterol in HDL [Mass/Vol] 53 mg/dL Normal 45-60 [facility] Comment on above: Performed By: #### L IPPRO #### [facility] CLIA # [id number] [address] [place] [address] Cholesterol in LDL [Mass/Vol] 97 mg/dL Normal <100 [facility] Comment on above: Performed By: #### L IPPRO #### [facility] CLIA # [id number] [address] [place] [address] CHOLESTEROL RISK RATIO 3.51 Normal [facility] Comment on above: Result Comment: DETE RMINATION OF RISK FACTORS BASED UPON PATIENT TEST RESULTS ACCORDING TO ADULT TREATMENT PANEL (ATP)III,2001 GUIDELINES OF NATIONAL CHOLESTEROL EDUCATION PROGRAM (NCEP). Triglyceride Cholesterol HDL Chol LDL Ratio Desirable: <150 mg/dl <200 mg/dl >60 mg/dl <100 <3.5 Borderline: 150-199 200-239 40-59 130-159 3.5-5 High Risk: >200 >240 <40 >160 >5.0 It should be noted that there are other factors which contribute to the determination of one's Total Risk Factor for Coronary Heart Disease. These include: age, stress, obesity, activity level, diet, smoking, and heredity. Performed By: #### L IPPRO #### [facility] CLIA # [id number] [address] [place] [address] Triglyceride [Mass/Vol] 181 mg/dL High <150 [facility] Comment on above: Performed By: #### L IPPRO #### [facility] CLIA # [id number] [address] [place] [address] VERY LOW DENSITY LIPID 36 mg/dl High 5-35 [facility] Comment on above: Performed By: #### L IPPRO #### [facility] CLIA # [id number] [address] [place] [address] UPPER GI SERIES DOUBLE CONTR ASon 08-21-2019 UPPER GI SERIES DOUBLE CONTRAS [facility] Name: SHERRY ASH : 1945 Unit #: [id number] Age: 73 Attending Physician: MELISSA LOPEZ M.D. Pt Location: [facility] Date of Service: 08/21/19 UPPER GI SERIES DOUBLE CONTRAS HISTORY: Gastroesophageal reflux disease. Upper GI. Air-contrast study. Fluoro time 1.3 minutes. Exposure 118 mGy. 08/21/2019. 8:00 a.m. Findings: The hypopharynx cervical and thoracic esophagus appear normal. There is no narrowing or obstruction. There is normal motility. There is a tiny hiatal hernia. Slight reflux was demonstrated. The stomach and duodenum appear normal. The stomach empties readily. There is no evidence of peptic ulcer disease or neoplasm. The proximal small bowel appears normal. Impression: Tiny hiatal hernia. Slight reflux. EXAM/ORDER VERIFICATION: Y PT/FAMILY VERBALIZES UNDERSTANDING OF EXAM Y PT SHIELDED N Is pt ? LMP TECH INITIALS KZ COMMENTS Electronically Signed by: NEO LERNER M.D. 08/21/19 1027 NEO LERNER M.D. Date Dict: 08/21/19 1024 NEO LERNER M.D. Date Trans: 08/21/19 1024 [place] [phone] cc: MYRNA ALVARENGA D.O., BETH A M.D. [facility] Addendum Name: SHERRY ASH : 1945 Unit #: [id number] Age: 73 Attending Physician: MELISSA LOPEZ M.D. Pt Location: [facility] Date of Service: 08/21/19 ADDENDUM: Report should state that 4 grams of EZ-Gas and 340 grams of EZ-HD were given. Electronically Signed by: NEO LERNER M.D. 08/21/19 1027 NEO LERNER M.D. Date Dict: 08/21/19 1024 NEO LERNER M.D. Date Trans: 08/21/19 1024 [id number] cc: MYRNA ALVARENGA D.O., BETH A M.D. Normal [facility] Vital Signs Date Time Vital Sign Value Performing Clinician Faci kin 03-30-2024 08:04-0400 Diastolic blood pressure 68 mm[Hg] Nicole Garcia DO Work Phone: [facility] 03-30-2024 08:04-0400 Systolic blood pressure 112 mm[Hg] Nicole Garcia DO Work Phone: [facility] 03-30-2024 08:02-0400 Body height 157.48 cm Nicole Barga DO Work Phone: [facility] 03-30-2024 08:02-0400 Body mass index (BMI) [Ratio] 27.8 kg/m2 Nicole Barga DO Work Phone: [facility] 03-30-2024 08:02-0400 Body temperature 98.2 [degF] Nicole Barga DO Work Phone: [facility] 03-30-2024 08:02-0400 Body weight 69.17 kg Nicole Barga DO Work Phone: [facility] 03-30-2024 08:02-0400 Heart rate 58 /min Nicole Barga DO Work Phone: [facility] 03-30-2024 08:02-0400 Respiratory rate 18 /min Nicole Barga DO Work Phone: [facility] 03-30-2024 08:02-0400 SaO2% (BldA) [Mass fraction] 96 % Nicole Barga DO Work Phone: [facility] 03-27-2024 11:52-0400 Diastolic blood pressure 68 mm[Hg] Nicole Barga DO Work Phone: [facility] 03-27-2024 11:52-0400 Heart rate 72 /min Nicole Barga DO Work Phone: [facility] 03-27-2024 11:52-0400 Respiratory rate 18 /min Nicole Barga DO Work Phone: [facility] 03-27-2024 11:52-0400 Systolic blood pressure 107 mm[Hg] Nicole Barga DO Work Phone: [facility] 03-27-2024 08:45-0400 Body height 157.48 cm Nicole Barga DO Work Phone: [facility] 03-27-2024 08:45-0400 Body mass index (BMI) [Ratio] 28 kg/m2 Nicole Barga DO Work Phone: [facility] 03-27-2024 08:45-0400 Body temperature 97.6 [degF] Nicole Barga DO Work Phone: [facility] 03-27-2024 08:45-0400 Body weight 69.4 kg Nicole Barga DO Work Phone: [facility] 03-27-2024 08:45-0400 SaO2% (BldA) [Mass fraction] 97 % Nicole Barga DO Work Phone: [facility] 03-03-2024 17:49-0400 Body height 157.48 cm [facility] 03-03-2024 17:49-0400 Body mass index (BMI) [Ratio] 28.3 kg/m2 [facility] 03-03-2024 17:49-0400 Body temperature 97.5 [degF] [facility] 03-03-2024 17:49-0400 Body weight 70.36 kg [facility] 03-03-2024 17:49-0400 Diastolic blood pressure 66 mm[Hg] [facility] 03-03-2024 17:49-0400 Heart rate 76 /min [facility] 03-03-2024 17:49-0400 Respiratory rate 18 /min [facility] 03-03-2024 17:49-0400 SaO2% (BldA) [Mass fraction] 96 % [facility] 03-03-2024 17:49-0400 Systolic blood pressure 97 mm[Hg] [facility] 02-28-2024 10:18-0400 Diastolic blood pressure 66 mm[Hg] Nicole Barga DO Work Phone: [facility] 02-28-2024 10:18-0400 Systolic blood pressure 98 mm[Hg] Nicole Barga DO Work Phone: [facility] 02-28-2024 10:17-0400 Body height 157.48 cm Nicole Barga DO Work Phone: [facility] 02-28-2024 10:17-0400 Body mass index (BMI) [Ratio] 28.2 kg/m2 Nicole Barga DO Work Phone: [facility] 02-28-2024 10:17-0400 Body temperature 98.2 [degF] Nicole Barga DO Work Phone: [facility] 02-28-2024 10:17-0400 Body weight 70.08 kg Nicole Barga DO Work Phone: [facility] 02-28-2024 10:17-0400 Heart rate 79 /min Nicole Barga DO Work Phone: [facility] 02-17-2024 14:38-0400 Diastolic blood pressure 82 mm[Hg] Nciole Barga DO Work Phone: [facility] 02-17-2024 14:38-0400 Systolic blood pressure 118 mm[Hg] Nicole Barga DO Work Phone: [facility] 02-17-2024 14:36-0400 Body height 157.48 cm Nicole Barga DO Work Phone: [facility] 02-17-2024 14:36-0400 Body mass index (BMI) [Ratio] 28.1 kg/m2 Nicole Barga DO Work Phone: [facility] 02-17-2024 14:36-0400 Body temperature 98.4 [degF] Nicole Barga DO Work Phone: [facility] 02-17-2024 14:36-0400 Body weight 69.85 kg Nicole Barga DO Work Phone: [facility] 02-17-2024 14:36-0400 Heart rate 67 /min Nicole Barga DO Work Phone: [facility] 02-17-2024 14:36-0400 Respiratory rate 18 /min Nicole Barga DO Work Phone: [facility] 02-17-2024 14:36-0400 SaO2% (BldA) [Mass fraction] 95 % Nicole Barga DO Work Phone: [facility] 01-24-2024 14:34-0400 Diastolic blood pressure 78 mm[Hg] Nicole Barga DO Work Phone: [facility] 01-24-2024 14:34-0400 Systolic blood pressure 116 mm[Hg] Nicole Barga DO Work Phone: [facility] 01-24-2024 14:33-0400 Body height 157.48 cm Nicole Barga DO Work Phone: [facility] 01-24-2024 14:33-0400 Body mass index (BMI) [Ratio] 28 kg/m2 Nicole Barga DO Work Phone: [facility] 01-24-2024 14:33-0400 Body temperature 98.7 [degF] Nicole Barga DO Work Phone: [facility] 01-24-2024 14:33-0400 Body weight 69.45 kg Nicole Barga DO Work Phone: [facility] 01-24-2024 14:33-0400 Heart rate 64 /min Nicole Barga DO Work Phone: [facility] 01-24-2024 14:33-0400 Respiratory rate 18 /min Nicole Barga DO Work Phone: [facility] 01-24-2024 14:33-0400 SaO2% (BldA) [Mass fraction] 97 % Nicole Barga DO Work Phone: [facility] 01-16-2024 09:59-0400 Diastolic blood pressure 76 mm[Hg] Nicole Barga DO Work Phone: [facility] 01-16-2024 09:59-0400 Heart rate 76 /min Nicole Barga DO Work Phone: [facility] 01-16-2024 09:59-0400 Respiratory rate 16 /min Nicole Barga DO Work Phone: [facility] 01-16-2024 09:59-0400 SaO2% (BldA) [Mass fraction] 98 % Nicole Barga DO Work Phone: [facility] 01-16-2024 09:59-0400 Systolic blood pressure 110 mm[Hg] Nicole Barga DO Work Phone: [facility] 01-16-2024 07:37-0400 Body height 157.48 cm Nicole Barga DO Work Phone: [facility] 01-16-2024 07:37-0400 Body mass index (BMI) [Ratio] 27.8 kg/m2 Nicole Barga DO Work Phone: [facility] 01-16-2024 07:37-0400 Body temperature 98 [degF] Nicole Barga DO Work Phone: [facility] 01-16-2024 07:37-0400 Body weight 68.94 kg Nicole Barga DO Work Phone: [facility] 12-03-2023 11:54-0400 Diastolic blood pressure 60 mm[Hg] DO Nicole Barga Work Phone: [facility] 12-03-2023 11:54-0400 Systolic blood pressure 90 mm[Hg] DO Nicole Barga Work Phone: [facility] 12-03-2023 11:13-0400 Diastolic blood pressure 60 mm[Hg] DO Nicole Barga Work Phone: [facility] 12-03-2023 11:13-0400 Systolic blood pressure 90 mm[Hg] DO Nicole Barga Work Phone: [facility] 12-03-2023 11:07-0400 Body height 157.48 cm DO Nicole Barga Work Phone: [facility] 12-03-2023 11:07-0400 Body mass index (BMI) [Ratio] 27.4 kg/m2 DO Nicole Barga Work Phone: [facility] 12-03-2023 11:07-0400 Body temperature 98.4 [degF] DO Nicole Barga Work Phone: [facility] 12-03-2023 11:07-0400 Body weight 68.15 kg DO Nicole Barga Work Phone: [facility] 12-03-2023 11:07-0400 Heart rate 80 /min DO Nicole Barga Work Phone: [facility] 12-03-2023 11:07-0400 Respiratory rate 20 /min DO Nicole Barga Work Phone: [facility] 12-03-2023 11:07-0400 SaO2% (BldA) [Mass fraction] 94 % DO Nicole Barga Work Phone: [facility] 11-17-2023 14:56-0400 Diastolic blood pressure 68 mm[Hg] DO Nicole Barga Work Phone: [facility] 11-17-2023 14:56-0400 Systolic blood pressure 104 mm[Hg] DO Nicole Barga Work Phone: [facility] 11-17-2023 14:56-0400 Body height 157.48 cm DO Nicole Barga Work Phone: [facility] 11-17-2023 14:56-0400 Body mass index (BMI) [Ratio] 27.1 kg/m2 DO Nicole Barga Work Phone: [facility] 11-17-2023 14:56-0400 Body temperature 98.4 [degF] DO Nicole Barga Work Phone: [facility] 11-17-2023 14:56-0400 Body weight 67.35 kg DO Nicole Barga Work Phone: [facility] 11-17-2023 14:56-0400 Heart rate 70 /min DO Nicole Barga Work Phone: [facility] 11-17-2023 14:56-0400 Respiratory rate 18 /min DO Nicole Barga Work Phone: [facility] 11-17-2023 14:56-0400 SaO2% (BldA) [Mass fraction] 96 % DO Nicole Barga Work Phone: [facility] 10-14-2023 09:39-0400 Body temperature 98 [degF] DO Nicole Barga Work Phone: [facility] 10-14-2023 09:39-0400 Diastolic blood pressure 62 mm[Hg] DO Nicole Barga Work Phone: [facility] 10-14-2023 09:39-0400 Heart rate 69 /min DO Nicole Barga Work Phone: [facility] 10-14-2023 09:39-0400 Respiratory rate 18 /min DO Nicole Barga Work Phone: [facility] 10-14-2023 09:39-0400 SaO2% (BldA) [Mass fraction] 98 % DO Nicole Barga Work Phone: [facility] 10-14-2023 09:39-0400 Systolic blood pressure 114 mm[Hg] DO Nicole Barga Work Phone: [facility] 08-26-2023 11:30-0400 Diastolic blood pressure 62 mm[Hg] DO Nicole Barga Work Phone: [facility] 08-26-2023 11:30-0400 Systolic blood pressure 88 mm[Hg] DO Nicole Barga Work Phone: [facility] 08-26-2023 11:25-0400 Body height 157.48 cm DO Nicole Barga Work Phone: [facility] 08-26-2023 11:25-0400 Body mass index (BMI) [Ratio] 26.9 kg/m2 DO Nicole Barga Work Phone: [facility] 08-26-2023 11:25-0400 Body temperature 98.2 [degF] DO Nicole Barga Work Phone: [facility] 08-26-2023 11:25-0400 Body weight 66.67 kg DO Nicole Barga Work Phone: [facility] 08-26-2023 11:25-0400 Heart rate 72 /min DO Nicole Barga Work Phone: [facility] 08-16-2023 13:15-0400 Body height 157.5 cm Annabel Banks DO Work Phone: [facility] 08-16-2023 13:15-0400 Body weight 67.8 kg Annabel Banks DO Work Phone: [facility] 08-16-2023 13:15-0400 Diastolic blood pressure 58 mm[Hg] Annabel Banks DO Work Phone: [facility] 08-16-2023 13:15-0400 Heart rate 65 /min Annabel Salesbritninadine DO Work Phone: [facility] 08-16-2023 13:15-0400 Systolic blood pressure 117 mm[Hg] Annabel Banks DO Work Phone: [facility] 08-16-2023 13:08-0400 Body height 157.5 cm Mihir Awan DO Work Phone: [facility] 08-16-2023 13:08-0400 Body weight 67.8 kg Mihir Awan DO Work Phone: [facility] 08-16-2023 13:08-0400 Diastolic blood pressure 58 mm[Hg] Mihir Awan DO Work Phone: [facility] 08-16-2023 13:08-0400 Heart rate 65 /min Mihir Lynche DO Work Phone: [facility] 08-16-2023 13:08-0400 Systolic blood pressure 117 mm[Hg] Mihir Awan DO Work Phone: [facility] 08-13-2023 14:45-0400 Diastolic blood pressure 74 mm[Hg] DO Nicole Barga Work Phone: [facility] 08-13-2023 14:45-0400 Systolic blood pressure 112 mm[Hg] DO Nicole Barga Work Phone: [facility] 08-13-2023 14:43-0400 Body height 157.48 cm DO Nicole Barga Work Phone: [facility] 08-13-2023 14:43-0400 Body mass index (BMI) [Ratio] 26.8 kg/m2 DO Nicole Barga Work Phone: [facility] 08-13-2023 14:43-0400 Body temperature 98.6 [degF] DO Nicole Barga Work Phone: [facility] 08-13-2023 14:43-0400 Body weight 66.45 kg DO Nicole Barga Work Phone: [facility] 08-13-2023 14:43-0400 Heart rate 68 /min DO Nicole Barga Work Phone: [facility] 08-13-2023 14:43-0400 Respiratory rate 18 /min DO Nicole Barga Work Phone: [facility] 08-13-2023 14:43-0400 SaO2% (BldA) [Mass fraction] 96 % DO Nicole Barga Work Phone: [facility] 08-03-2023 15:00-0500 Body temperature 98.6 [degF] DO Nicole Barga Work Phone: [facility] 08-03-2023 15:00-0500 Diastolic blood pressure 52 mm[Hg] DO Nicole Barga Work Phone: [facility] 08-03-2023 15:00-0500 Heart rate 71 /min DO Nicole Barga Work Phone: [facility] 08-03-2023 15:00-0500 Respiratory rate 18 /min DO Nicole Barga Work Phone: [facility] 08-03-2023 15:00-0500 SaO2% (BldA) [Mass fraction] 98 % DO Nicole Barga Work Phone: [facility] 08-03-2023 15:00-0500 Systolic blood pressure 94 mm[Hg] DO Nicole Barga Work Phone: [facility] 05-14-2023 13:29-0500 Diastolic blood pressure 70 mm[Hg] DO Nicole Barga Work Phone: [facility] 05-14-2023 13:29-0500 Systolic blood pressure 108 mm[Hg] DO Nicole Barga Work Phone: [facility] 05-14-2023 13:25-0500 Body height 157.48 cm DO Nicole Barga Work Phone: [facility] 05-14-2023 13:25-0500 Body mass index (BMI) [Ratio] 25.4 kg/m2 DO Nicole Barga Work Phone: [facility] 05-14-2023 13:25-0500 Body temperature 98.6 [degF] DO Nicole Barga Work Phone: [facility] 05-14-2023 13:25-0500 Body weight 63.27 kg DO Nicole Barga Work Phone: [facility] 05-14-2023 13:25-0500 Heart rate 87 /min DO Nicole Barga Work Phone: [facility] 05-14-2023 13:25-0500 Respiratory rate 18 /min DO Nicole Barga Work Phone: [facility] 05-14-2023 13:25-0500 SaO2% (BldA) [Mass fraction] 95 % DO Nicole Barga Work Phone: [facility] 04-12-2023 09:30-0500 SaO2% (BldA) [Mass fraction] 94 % DO Nicole Barga Work Phone: [facility] 04-12-2023 09:20-0500 Body height 157.48 cm DO Nicole Barga Work Phone: [facility] 04-12-2023 09:20-0500 Body mass index (BMI) [Ratio] 26.4 kg/m2 DO Nicole Barga Work Phone: [facility] 04-12-2023 09:20-0500 Body temperature 98.1 [degF] DO Nicole Barga Work Phone: [facility] 04-12-2023 09:20-0500 Body weight 65.5 kg DO Nicole Barga Work Phone: [facility] 04-12-2023 09:20-0500 Diastolic blood pressure 55 mm[Hg] DO Nicole Barga Work Phone: [facility] 04-12-2023 09:20-0500 Heart rate 72 /min DO Nicole Barga Work Phone: [facility] 04-12-2023 09:20-0500 Respiratory rate 16 /min DO Nicole Barga Work Phone: [facility] 04-12-2023 09:20-0500 Systolic blood pressure 91 mm[Hg] DO Nicole Barga Work Phone: [facility] 02-23-2023 15:25-0400 Body height 157.48 cm DO Nicole Barga Work Phone: [facility] 02-23-2023 15:25-0400 Body mass index (BMI) [Ratio] 26.5 kg/m2 DO Nicole Barga Work Phone: [facility] 02-23-2023 15:25-0400 Body weight 65.77 kg DO Nicole Barga Work Phone: [facility] 02-12-2023 12:48-0400 Diastolic blood pressure 68 mm[Hg] DO Nathanael Brunner Work Phone: [facility] 02-12-2023 12:48-0400 Systolic blood pressure 102 mm[Hg] DO Nathanael Brunner Work Phone: [facility] 02-12-2023 12:36-0400 Body height 157.48 cm DO Nathanael Brunner Work Phone: [facility] 02-12-2023 12:36-0400 Body mass index (BMI) [Ratio] 25.9 kg/m2 DO Nathanael Brunner Work Phone: [facility] 02-12-2023 12:36-0400 Body temperature 97.8 [degF] DO Nathanael Brunner Work Phone: [facility] 02-12-2023 12:36-0400 Body weight 64.29 kg DO Nathanael Brunner Work Phone: [facility] 02-12-2023 12:36-0400 Heart rate 70 /min DO Nathanael Brunner Work Phone: [facility] 02-12-2023 12:36-0400 Respiratory rate 16 /min DO Nathanael Brunner Work Phone: [facility] 02-12-2023 12:36-0400 SaO2% (BldA) [Mass fraction] 96 % DO Nathanael Brunner Work Phone: [facility] 01-21-2023 14:59-0400 Diastolic blood pressure 56 mm[Hg] DO Nathanael Brunner Work Phone: [facility] 01-21-2023 14:59-0400 Systolic blood pressure 104 mm[Hg] DO Nathanael Brunner Work Phone: [facility] 01-21-2023 14:57-0400 Body height 157.48 cm DO Nathanael Brunner Work Phone: [facility] 01-21-2023 14:57-0400 Body mass index (BMI) [Ratio] 25.6 kg/m2 DO Nathanael Brunner Work Phone: [facility] 01-21-2023 14:57-0400 Body weight 63.5 kg DO Nathanael Brunner Work Phone: [facility] 01-21-2023 14:57-0400 Heart rate 68 /min DO Nathanael Brunner Work Phone: [facility] 01-21-2023 14:57-0400 Respiratory rate 18 /min DO Nathanael Brunner Work Phone: [facility] 01-21-2023 14:57-0400 SaO2% (BldA) [Mass fraction] 95 % DO Nathanael Brunner Work Phone: [facility] 12-24-2022 11:15-0400 Diastolic blood pressure 53 mm[Hg] DO Nathanael Brunner Work Phone: [facility] 12-24-2022 11:15-0400 Systolic blood pressure 89 mm[Hg] DO Nathanael Brunner Work Phone: [facility] 12-24-2022 11:11-0400 Body height 157.48 cm DO Nathanael Brunner Work Phone: [facility] 12-24-2022 11:11-0400 Body mass index (BMI) [Ratio] 26.5 kg/m2 DO Nathanael Brunner Work Phone: [facility] 12-24-2022 11:11-0400 Body weight 65.9 kg DO Nathanael Brunner Work Phone: [facility] 12-24-2022 11:11-0400 Heart rate 69 /min DO Nathanael Brunner Work Phone: [facility] 12-21-2022 14:09-0400 Diastolic blood pressure 62 mm[Hg] DO Nathanael Brunner Work Phone: [facility] 12-21-2022 14:09-0400 Systolic blood pressure 102 mm[Hg] DO Nathanael Brunner Work Phone: [facility] 12-21-2022 13:54-0400 Body height 157.48 cm DO Nathanael Brunner Work Phone: [facility] 12-21-2022 13:54-0400 Body mass index (BMI) [Ratio] 26.6 kg/m2 DO Nathanael Brunner Work Phone: [facility] 12-21-2022 13:54-0400 Body temperature 98.2 [degF] DO Nathanael Brunner Work Phone: [facility] 12-21-2022 13:54-0400 Body weight 65.99 kg DO Nathanael Brunner Work Phone: [facility] 12-21-2022 13:54-0400 Heart rate 73 /min DO Nathanael Brunner Work Phone: [facility] 12-21-2022 13:54-0400 Respiratory rate 16 /min DO Nathanael Brunner Work Phone: [facility] 12-21-2022 13:54-0400 SaO2% (BldA) [Mass fraction] 94 % DO Nathanael Brunner Work Phone: [facility] 12-15-2022 15:50-0400 Body height 157.48 cm DO Nathanael Brunner Work Phone: [facility] 12-15-2022 15:50-0400 Body mass index (BMI) [Ratio] 26.9 kg/m2 DO Nathanael Brunner Work Phone: [facility] 12-15-2022 15:50-0400 Body temperature 98.2 [degF] DO Nathanael Brunner Work Phone: [facility] 12-15-2022 15:50-0400 Body weight 66.67 kg DO Nathanael Brunner Work Phone: [facility] 12-15-2022 15:50-0400 Diastolic blood pressure 60 mm[Hg] DO Nathanael Brunner Work Phone: [facility] 12-15-2022 15:50-0400 Heart rate 70 /min DO Nathanael Brunner Work Phone: [facility] 12-15-2022 15:50-0400 Respiratory rate 18 /min DO Nathanael Brunner Work Phone: [facility] 12-15-2022 15:50-0400 SaO2% (BldA) [Mass fraction] 97 % DO Nathanael Brunner Work Phone: [facility] 12-15-2022 15:50-0400 Systolic blood pressure 108 mm[Hg] DO Nathanael Brunner Work Phone: [facility] 11-21-2022 14:45-0400 Body temperature 97.8 [degF] DO Nathanael Brunner Work Phone: [facility] [facility]22 14:45-0400 Diastolic blood pressure 62 mm[Hg] DO Nathanael Brunner Work Phone: [facility] 11-21-2022 14:45-0400 Heart rate 63 /min DO Nathanael Brunner Work Phone: [facility] 11-21-2022 14:45-0400 Respiratory rate 18 /min DO Nathanael Brunner Work Phone: [facility] 11-21-2022 14:45-0400 SaO2% (BldA) [Mass fraction] 98 % DO Nathanael Brunner Work Phone: [facility] 11-21-2022 14:45-0400 Systolic blood pressure 154 mm[Hg] DO Nathanael Brunner Work Phone: [facility] 10-01-2022 12:02-0400 Body temperature 97.7 [degF] DO Nathanael Brunner Work Phone: [facility] 10-01-2022 12:02-0400 Diastolic blood pressure 55 mm[Hg] DO Nathanael Brunner Work Phone: [facility] 10-01-2022 12:02-0400 Heart rate 68 /min DO Nathanael Brunner Work Phone: [facility] 10-01-2022 12:02-0400 Respiratory rate 18 /min DO Nathanael Brunner Work Phone: [facility] 10-01-2022 12:02-0400 SaO2% (BldA) [Mass fraction] 97 % DO Nathanael Brunner Work Phone: [facility] 10-01-2022 12:02-0400 Systolic blood pressure 108 mm[Hg] DO Nathanael Brunner Work Phone: [facility] 09-16-2022 14:36-0400 Body height 157.48 cm DO Nathanael Brunner Work Phone: [facility] 09-16-2022 14:36-0400 Body mass index (BMI) [Ratio] 25.9 kg/m2 DO Nathanael Brunner Work Phone: [facility] 09-16-2022 14:36-0400 Body weight 64.41 kg DO Nathanael Brunner Work Phone: [facility] 09-16-2022 14:36-0400 Diastolic blood pressure 74 mm[Hg] DO Nathanael Brunner Work Phone: [facility] 09-16-2022 14:36-0400 Heart rate 73 /min DO Nathanael Brunner Work Phone: [facility] 09-16-2022 14:36-0400 Respiratory rate 16 /min DO Nathanael Brunner Work Phone: [facility] 09-16-2022 14:36-0400 SaO2% (BldA) [Mass fraction] 96 % DO Nathanael Brunner Work Phone: [facility] 09-16-2022 14:36-0400 Systolic blood pressure 100 mm[Hg] DO Nathanael Brunner Work Phone: [facility] 08-28-2022 14:59-0400 Body weight 63.67 kg DO Nathanael Brunner Work Phone: [facility] 08-26-2022 13:08-0400 Body height 157.48 cm DO Nathanael Brunner Work Phone: [facility] 08-26-2022 13:08-0400 Body mass index (BMI) [Ratio] 25.7 kg/m2 DO Nathanael Brunner Work Phone: [facility] 08-26-2022 13:08-0400 Body weight 63.95 kg DO Nathanael Brunner Work Phone: [facility] 08-26-2022 13:08-0400 Diastolic blood pressure 52 mm[Hg] DO Nathanael Brunner Work Phone: [facility] 08-26-2022 13:08-0400 Heart rate 58 /min DO Nathanael Brunner Work Phone: [facility] 08-26-2022 13:08-0400 Respiratory rate 18 /min DO Nathanael Brunner Work Phone: [facility] 08-26-2022 13:08-0400 SaO2% (BldA) [Mass fraction] 98 % DO Nathanael Brunner Work Phone: [facility] 08-26-2022 13:08-0400 Systolic blood pressure 110 mm[Hg] DO Nathanael Brunner Work Phone: [facility] 08-24-2022 13:53-0400 Body height 157.48 cm DO Nathanael Brunner Work Phone: [facility] 08-24-2022 13:53-0400 Body mass index (BMI) [Ratio] 25.4 kg/m2 DO Nathanael Brunner Work Phone: [facility] 08-24-2022 13:53-0400 Body temperature 97.9 [degF] DO Nathanael Brunner Work Phone: [facility] 08-24-2022 13:53-0400 Body weight 63.04 kg DO Nathanael Brunner Work Phone: [facility] 08-24-2022 13:53-0400 Diastolic blood pressure 69 mm[Hg] DO Nathanael Brunner Work Phone: [facility] 08-24-2022 13:53-0400 Heart rate 73 /min DO Nathanael Brunner Work Phone: [facility] 08-24-2022 13:53-0400 Respiratory rate 18 /min DO Nathanael Brunner Work Phone: [facility] 08-24-2022 13:53-0400 SaO2% (BldA) [Mass fraction] 98 % DO Nathanael Brunner Work Phone: [facility] 08-24-2022 13:53-0400 Systolic blood pressure 163 mm[Hg] DO Nathanael Brunner Work Phone: [facility] 08-13-2022 14:32-0400 Body height 157.48 cm DO Nathanael Brunner Work Phone: [facility] 08-13-2022 14:32-0400 Body mass index (BMI) [Ratio] 26.3 kg/m2 DO Nathanael Brunner Work Phone: [facility] 08-13-2022 14:32-0400 Body weight 65.31 kg DO Nathanael Brunner Work Phone: [facility] 08-13-2022 14:32-0400 Diastolic blood pressure 60 mm[Hg] DO Nathanael Brunner Work Phone: [facility] 08-13-2022 14:32-0400 Heart rate 67 /min DO Nathanael Brunner Work Phone: [facility] 08-13-2022 14:32-0400 Respiratory rate 18 /min DO Nathanael Brunner Work Phone: [facility] 08-13-2022 14:32-0400 SaO2% (BldA) [Mass fraction] 96 % DO Nathanael Brunner Work Phone: [facility] 08-13-2022 14:32-0400 Systolic blood pressure 112 mm[Hg] DO Nathanael Brunner Work Phone: [facility] 07-30-2022 14:17-0500 Body height 157.48 cm DO Nathanael Brunner Work Phone: [facility] 07-30-2022 14:17-0500 Body mass index (BMI) [Ratio] 26.6 kg/m2 DO Nathanael Brunner Work Phone: [facility] 07-30-2022 14:17-0500 Body weight 66.22 kg DO Nathanael Brunner Work Phone: [facility] 07-30-2022 14:17-0500 Diastolic blood pressure 66 mm[Hg] DO Nathanael Brunner Work Phone: [facility] 07-30-2022 14:17-0500 Heart rate 66 /min DO Nathanael Brunner Work Phone: [facility] 07-30-2022 14:17-0500 Respiratory rate 18 /min DO Nathanael Brunner Work Phone: [facility] 07-30-2022 14:17-0500 SaO2% (BldA) [Mass fraction] 97 % DO Nathanael Brunner Work Phone: [facility] 07-30-2022 14:17-0500 Systolic blood pressure 102 mm[Hg] DO Nathanael Brunner Work Phone: [facility] 07-16-2022 14:28-0500 Body height 157.48 cm DO Nathanael Brunner Work Phone: [facility] 07-16-2022 14:28-0500 Body mass index (BMI) [Ratio] 27.3 kg/m2 DO Nathanael Brunner Work Phone: [facility] 07-16-2022 14:28-0500 Body weight 67.75 kg DO Nathanael Brunner Work Phone: [facility] 06-30-2022 12:18-0500 Body height 157.48 cm DO Nathanael Brunner Work Phone: [facility] 06-30-2022 12:18-0500 Body mass index (BMI) [Ratio] 27.6 kg/m2 DO Nathanael Brunner Work Phone: [facility] 06-30-2022 12:18-0500 Body temperature 98.7 [degF] DO Nathanael Brunner Work Phone: [facility] 06-30-2022 12:18-0500 Body weight 68.54 kg DO Nathanael Brunner Work Phone: [facility] 06-30-2022 12:18-0500 Diastolic blood pressure 60 mm[Hg] DO Nathanael Brunner Work Phone: [facility] 06-30-2022 12:18-0500 Heart rate 78 /min DO Nathanael Brunner Work Phone: [facility] 06-30-2022 12:18-0500 Respiratory rate 18 /min DO Nathanael Brunner Work Phone: [facility] 06-30-2022 12:18-0500 SaO2% (BldA) [Mass fraction] 97 % DO Nathanael Brunner Work Phone: [facility] 06-30-2022 12:18-0500 Systolic blood pressure 100 mm[Hg] DO Nathanael Brunner Work Phone: [facility] 06-17-2022 11:03-0500 Body height 157.48 cm DO Nathanael Brunner Work Phone: [facility] 06-17-2022 11:03-0500 Body mass index (BMI) [Ratio] 27.4 kg/m2 DO Nathanael Brunner Work Phone: [facility] 06-17-2022 11:03-0500 Body temperature 97.7 [degF] DO Nathanael Brunner Work Phone: [facility] 06-17-2022 11:03-0500 Body weight 68.03 kg DO Nathanael Brunner Work Phone: [facility] 06-17-2022 11:03-0500 Diastolic blood pressure 58 mm[Hg] DO Nathanael Brunner Work Phone: [facility] 06-17-2022 11:03-0500 Heart rate 66 /min DO Nathanael Brunner Work Phone: [facility] 06-17-2022 11:03-0500 Respiratory rate 18 /min DO Nathanael Brunner Work Phone: [facility] 06-17-2022 11:03-0500 SaO2% (BldA) [Mass fraction] 96 % DO Nathanael Brunner Work Phone: [facility] 06-17-2022 11:03-0500 Systolic blood pressure 100 mm[Hg] DO Nathanael Brunner Work Phone: [facility] 06-11-2022 10:10-0500 Body height 157.48 cm DO Nathanael Brunner Work Phone: [facility] 06-11-2022 10:10-0500 Body mass index (BMI) [Ratio] 27.8 kg/m2 DO Nathanael Brunner Work Phone: [facility] 06-11-2022 10:10-0500 Body weight 69 kg DO Nathanael Brunner Work Phone: [facility] 06-11-2022 10:10-0500 Diastolic blood pressure 55 mm[Hg] DO Nathanael Brunner Work Phone: [facility] 06-11-2022 10:10-0500 Heart rate 63 /min DO Nathanael Brunner Work Phone: [facility] 06-11-2022 10:10-0500 Systolic blood pressure 98 mm[Hg] DO Nathanael Brunner Work Phone: [facility] 05-27-2022 17:51-0500 Body temperature 98 [degF] DO Nathanael Brunner Work Phone: [facility] 05-27-2022 17:51-0500 Diastolic blood pressure 60 mm[Hg] DO Nathanael Brunner Work Phone: [facility] 05-27-2022 17:51-0500 Heart rate 70 /min DO Nathanael Brunner Work Phone: [facility] 05-27-2022 17:51-0500 Respiratory rate 18 /min DO Nathanael Brunner Work Phone: [facility] 05-27-2022 17:51-0500 SaO2% (BldA) [Mass fraction] 96 % DO Nathanael Brunner Work Phone: [facility] 05-27-2022 17:51-0500 Systolic blood pressure 128 mm[Hg] DO Nathanael Brunner Work Phone: [facility] 04-29-2022 14:27-0500 Body height 157.48 cm DO Nathanael Brunner Work Phone: [facility] 04-29-2022 14:27-0500 Body mass index (BMI) [Ratio] 27.8 kg/m2 DO Nathanael Brunner Work Phone: [facility] 04-29-2022 14:27-0500 Body temperature 97.3 [degF] DO Nathanael Brunner Work Phone: [facility] 04-29-2022 14:27-0500 Body weight 68.94 kg DO Nathanael Brunner Work Phone: [facility] 04-29-2022 14:27-0500 Diastolic blood pressure 60 mm[Hg] DO Nathanael Brunner Work Phone: [facility] 04-29-2022 14:27-0500 Heart rate 62 /min DO Nathanael Brunner Work Phone: [facility] 04-29-2022 14:27-0500 Respiratory rate 22 /min DO Nathanael Brunner Work Phone: [facility] 04-29-2022 14:27-0500 SaO2% (BldA) [Mass fraction] 96 % DO Nathanael Brunner Work Phone: [facility] 04-29-2022 14:27-0500 Systolic blood pressure 100 mm[Hg] DO Nathanael Brunner Work Phone: [facility] 04-08-2022 13:54-0500 Body height 157.48 cm DO Nathanael Brunner Work Phone: [facility] 04-08-2022 13:54-0500 Body mass index (BMI) [Ratio] 27.4 kg/m2 DO Nathanael Brunner Work Phone: [facility] 04-08-2022 13:54-0500 Body temperature 97.8 [degF] DO Nathanael Brunner Work Phone: [facility] 04-08-2022 13:54-0500 Body weight 68.03 kg DO Nathanael Brunner Work Phone: [facility] 04-08-2022 13:54-0500 Diastolic blood pressure 58 mm[Hg] DO Nathanael Brunner Work Phone: [facility] 04-08-2022 13:54-0500 Heart rate 66 /min DO Nathanael Brunner Work Phone: [facility] 04-08-2022 13:54-0500 Respiratory rate 18 /min DO Nathanael Brunner Work Phone: [facility] 04-08-2022 13:54-0500 SaO2% (BldA) [Mass fraction] 97 % DO Nathanael Brunner Work Phone: [facility] 04-08-2022 13:54-0500 Systolic blood pressure 106 mm[Hg] DO Nathanael Brunner Work Phone: [facility] 02-26-2022 13:30-0400 Body height 157.48 cm DO Myrna Alvarenga Work Phone: [facility] 02-26-2022 13:30-0400 Body mass index (BMI) [Ratio] 28 kg/m2 DO Myrna Alvarenga Work Phone: [facility] 02-26-2022 13:30-0400 Body weight 69.51 kg DO Myrna Alvarenga Work Phone: [facility] 02-04-2022 13:51-0400 Body height 154.94 cm DO Myrna Alvarenga Work Phone: [facility] 02-04-2022 13:51-0400 Body mass index (BMI) [Ratio] 28.9 kg/m2 DO Myrna Alvarenga Work Phone: [facility] 02-04-2022 13:51-0400 Body temperature 98.7 [degF] DO Myrna Alvarenga Work Phone: [facility] 02-04-2022 13:51-0400 Body weight 69.39 kg DO Myrna Alavrenga Work Phone: [facility] 02-04-2022 13:51-0400 Diastolic blood pressure 58 mm[Hg] DO Myrna Alvarenga Work Phone: [facility] 02-04-2022 13:51-0400 Heart rate 69 /min DO Myrna Alvarenga Work Phone: [facility] 02-04-2022 13:51-0400 Respiratory rate 22 /min DO Myrna Alvarenga Work Phone: [facility] 02-04-2022 13:51-0400 SaO2% (BldA) [Mass fraction] 97 % DO Myrna Alvarenga Work Phone: [facility] 02-04-2022 13:51-0400 Systolic blood pressure 98 mm[Hg] DO Myrna Alvarenga Work Phone: [facility] 01-08-2022 13:09-0400 Body height 154.31 cm DO Myrna Alvarenga Work Phone: [facility] 01-08-2022 13:09-0400 Body mass index (BMI) [Ratio] 29.3 kg/m2 DO Myrna Alvarenga Work Phone: [facility] 01-08-2022 13:09-0400 Body temperature 97 [degF] DO Myrna Alvarenga Work Phone: [facility] 01-08-2022 13:09-0400 Body weight 69.85 kg DO Myrna Alvarenga Work Phone: [facility] 12-04-2021 11:29-0400 Body height 157.48 cm DO Myrna Alvarenga Work Phone: [facility] 12-04-2021 11:29-0400 Body mass index (BMI) [Ratio] 28.1 kg/m2 DO Mynra Alvarenga Work Phone: [facility] 12-04-2021 11:29-0400 Body weight 69.85 kg DO Myrna Alvarenga Work Phone: [facility] 12-04-2021 11:29-0400 Diastolic blood pressure 68 mm[Hg] DO Myrna Alvarenga Work Phone: [facility] 12-04-2021 11:29-0400 Heart rate 71 /min DO Myrna Alvarenga Work Phone: [facility] 12-04-2021 11:29-0400 Systolic blood pressure 115 mm[Hg] DO Myrna Alvarenga Work Phone: [facility] 12-03-2021 15:01-0400 Body height 157.48 cm DO Myrna Alvarenga Work Phone: [facility] 12-03-2021 15:01-0400 Body mass index (BMI) [Ratio] 28.2 kg/m2 DO Myrna Alvarenga Work Phone: [facility] 12-03-2021 15:01-0400 Body weight 70.02 kg DO Myrna Alvarenga Work Phone: [facility] 12-03-2021 15:01-0400 Diastolic blood pressure 70 mm[Hg] DO Myrna Alvarenga Work Phone: [facility] 12-03-2021 15:01-0400 Heart rate 68 /min DO Myrna Alvarenga Work Phone: [facility] 12-03-2021 15:01-0400 Respiratory rate 16 /min DO Myrna Alvarenga Work Phone: [facility] 12-03-2021 15:01-0400 Systolic blood pressure 116 mm[Hg] DO Myrna Alvarenga Work Phone: [facility] 11-29-2021 09:49-0400 Body temperature 97.5 [degF] DO Myrna Alvarenga Work Phone: [facility] 11-29-2021 09:49-0400 Body weight 69.85 kg DO Myrna Alvarenga Work Phone: [facility] 11-29-2021 09:49-0400 Diastolic blood pressure 64 mm[Hg] DO Myrna Alvarenga Work Phone: [facility] 11-29-2021 09:49-0400 Heart rate 89 /min DO Myrna Alvarenga Work Phone: [facility] 11-29-2021 09:49-0400 Respiratory rate 16 /min DO Myrna Alvarenga Work Phone: [facility] 11-29-2021 09:49-0400 SaO2% (BldA) [Mass fraction] 96 % DO Myrna Alvarenga Work Phone: [facility] 11-29-2021 09:49-0400 Systolic blood pressure 115 mm[Hg] DO Myrna Alvarenga Work Phone: [facility] 11-05-2021 15:12-0400 Body temperature 98.2 [degF] DO Myrna Alvarenga Work Phone: [facility] 11-05-2021 15:12-0400 Body weight 70.08 kg DO Myrna Alvarenga Work Phone: [facility] 11-05-2021 15:12-0400 Diastolic blood pressure 62 mm[Hg] DO Myrna Alvarenga Work Phone: [facility] 11-05-2021 15:12-0400 Heart rate 72 /min DO Myrna Alvarenga Work Phone: [facility] 11-05-2021 15:12-0400 Respiratory rate 16 /min DO Myrna Alvarenga Work Phone: [facility] 11-05-2021 15:12-0400 Systolic blood pressure 98 mm[Hg] DO Myrna Alvarenga Work Phone: [facility] Encounters Encounter Date Encounter Type Care Provider Facility Start: 03-30-2024 End: 03-30-2024 ambulatory Nicole Garcia DO Work Phone: [facility] Work Phone: Start: 03-30-2024 End: 03-30-2024 Patient encounter procedure Nicole Barga DO Work Phone: [facility] Work Phone: Start: 03-27-2024 End: 03-27-2024 Emergency department patient visit Nicole Barga DO Work Phone: [facility]-Emergency Department Start: 03-03-2024 End: 03-03-2024 ambulatory [facility] Work Phone: Start: 03-03-2024 End: 03-03-2024 Patient encounter procedure [facility] Work Phone: Start: 02-28-2024 End: 02-28-2024 ambulatory Nicole A Barga DO Work Phone: [facility] Work Phone: Start: 02-28-2024 End: 02-28-2024 Patient encounter procedure Nicole Barga DO Work Phone: [facility] Work Phone: Start: 02-17-2024 End: 02-17-2024 ambulatory Nicole A Barga DO Work Phone: [facility] Work Phone: Start: 02-17-2024 End: 02-17-2024 Patient encounter procedure Nicole Barga DO Work Phone: [facility] Work Phone: Start: 01-24-2024 End: 01-24-2024 Patient encounter procedure Nicole Barga DO Work Phone: [facility] Work Phone: Start: 01-16-2024 End: 01-16-2024 Emergency department patient visit Nicole Barga DO Work Phone: [facility]-Emergency Department Start: 12-03-2023 End: 12-03-2023 Patient encounter procedure DO Nicole Barga Work Phone: [facility]-Non-Pt/Dr Office Specimen Start: 12-03-2023 End: 12-03-2023 ambulatory DO Nicole A Barga Work Phone: [facility] Work Phone: Start: 12-03-2023 End: 12-03-2023 ambulatory DO Nicole A Barga Work Phone: [facility] Work Phone: Start: 12-03-2023 End: 12-03-2023 Patient encounter procedure DO Nicole Barga Work Phone: [facility] Work Phone: Start: 11-17-2023 End: 11-17-2023 ambulatory DO Nicole A Barga Work Phone: [facility] Work Phone: Start: 11-17-2023 End: 11-17-2023 Patient encounter procedure DO Nicole Barga Work Phone: [facility] Work Phone: Start: 10-14-2023 End: 10-14-2023 Patient encounter procedure DO Nicole Barga Work Phone: [facility]-Non-Pt/Dr Office Specimen Start: 10-14-2023 End: 10-14-2023 ambulatory DO Nicole A Barga Work Phone: [facility] Work Phone: Start: 10-14-2023 End: 10-14-2023 ambulatory DO Nicole A Barga Work Phone: [facility] Work Phone: Start: 10-14-2023 End: 10-14-2023 Patient encounter procedure DO Nicole Garcia Work Phone: [facility] Medical [facility], [facility] Urgent Care Work Phone: Start: 08-26-2023 End: 08-26-2023 ambulatory DO Nicole Garcia Work Phone: [facility] Medical [facility], [facility] Work Phone: Start: 08-26-2023 End: 08-26-2023 Patient encounter procedure DO Nicole Garcia Work Phone: [facility] Medical [facility], [facility] Orthopedics Work Phone: Start: 08-24-2023 Telephone encounter Mihir Awan DO Work Phone: Gastroenterology Start: 08-19-2023 ambulatory Mihir aragon DO Work Phone: Gastroenterology Comment on above: EGG RESULTS medication Start: 08-19-2023 Patient encounter procedure Mihir Awan DO Work Phone: [facility] Start: 08-16-2023 End: 08-16-2023 Subsequent hospital visit by physician [facility] Comment on above: Chronic idiopathic c onstipation [K59.04] Start: 08-16-2023 End: 08-17-2023 ambulatory MIHIR Kelvin AWAN Facility:[facility] Start: 08-16-2023 End: 08-16-2023 Patient encounter procedure [facility] Work Phone: Gastroenterology Comment on above: Gastroparesis (Prima ry Dx) Gastroparesis (Prima ry Dx); Chronic idiopathic constipation; Irritable bowel syndrome with constipation Gastroparesis (Prima ry Dx); Chronic idiopathic constipation Start: 08-13-2023 End: 08-13-2023 Patient encounter procedure DO Nicole Garcia Work Phone: [facility]-Non-Pt/Dr Office Specimen Start: 08-13-2023 End: 08-13-2023 ambulatory DO Nicole A Barga Work Phone: [facility] Work Phone: Start: 08-13-2023 End: 08-13-2023 ambulatory DO Nicole A Barga Work Phone: [facility] Work Phone: Start: 08-13-2023 End: 08-13-2023 Patient encounter procedure DO Nicole Barga Work Phone: [facility] Work Phone: Start: 08-12-2023 Telephone encounter Mihir Awan DO Work Phone: Gastroenterology Comment on above: Care Coordination ([facility] clinic: chart review; new patient call - no answer.) Start: 08-03-2023 End: 08-03-2023 ambulatory [facility] Start: 08-03-2023 End: 08-03-2023 Patient encounter procedure DO Nicole Barga Work Phone: [facility]-Non-Pt/Dr Office Specimen Start: 08-03-2023 End: 08-03-2023 ambulatory DO Nicole A Barga Work Phone: [facility] Work Phone: Start: 08-03-2023 End: 08-03-2023 Patient encounter procedure DO Nicole Barga Work Phone: [facility] Work Phone: Start: 08-02-2023 End: 08-02-2023 Patient encounter procedure DO Nicole Barga Work Phone: [facility]-Laboratory Start: 08-02-2023 End: 08-02-2023 ambulatory DO Nicole A Barga Work Phone: [facility] Work Phone: Start: 05-14-2023 End: 05-14-2023 Patient encounter procedure DO Nicole Barga Work Phone: [facility] Work Phone: Start: 04-12-2023 End: 04-12-2023 Emergency department patient visit DO Nicole Fregosoga Work Phone: [facility]-Emergency Department Start: 02-23-2023 End: 02-23-2023 ambulatory DO Nicole A Barga Work Phone: [facility] Work Phone: Start: 02-23-2023 End: 02-23-2023 Patient encounter procedure DO Nicolepat Fregosoga Work Phone: [facility] Work Phone: Start: 02-15-2023 End: 02-15-2023 ambulatory DO Nicole A Jose Work Phone: [facility] Work Phone: Start: 02-15-2023 End: 02-15-2023 Patient encounter procedure DO Nicolepat Fregosoga Work Phone: [facility]-Radiology Start: 02-12-2023 End: 02-12-2023 ambulatory DO Nathanael Brunner Work Phone: [facility] Work Phone: Start: 02-12-2023 End: 02-12-2023 Patient encounter procedure DO Nathanael Brunner Work Phone: [facility] Work Phone: Start: 01-23-2023 End: 01-23-2023 ambulatory DO Nathanael T Brunner Work Phone: [facility] Work Phone: Start: 01-23-2023 End: 01-23-2023 Patient encounter procedure DO Nathanael Brunner Work Phone: [facility]Laboratory Start: 01-21-2023 End: 01-21-2023 ambulatory DO Nathanael T Brunner Work Phone: [facility] Work Phone: Start: 01-21-2023 End: 01-21-2023 Patient encounter procedure DO Nathanael Brunner Work Phone: [facility] Work Phone: Start: 12-24-2022 End: 12-24-2022 ambulatory DO Nathanael T Brunner Work Phone: [facility] Work Phone: Start: 12-24-2022 End: 12-24-2022 Patient encounter procedure DO Nathanael Brunner Work Phone: [facility] Work Phone: Start: 12-21-2022 End: 12-21-2022 Patient encounter procedure DO Nathanael Fregosones Work Phone: [facility] [place] [facility] Start: 12-21-2022 End: 12-21-2022 Patient encounter procedure DO Nathanael Brunner Work Phone: [facility] Work Phone: Start: 12-15-2022 End: 12-15-2022 ambulatory DO Nathanael T Brunner Work Phone: [facility] Work Phone: Start: 12-15-2022 End: 12-15-2022 Patient encounter procedure DO Nathanael Brunner Work Phone: [facility] Work Phone: Start: 11-21-2022 End: 11-21-2022 Patient encounter procedure DO Nathanael Brunner Work Phone: [facility]-Non-Pt/Dr Office Specimen Start: 11-21-2022 End: 11-21-2022 ambulatory DO Nathanael T Brunner Work Phone: [facility] Work Phone: Start: 11-21-2022 End: 11-21-2022 Patient encounter procedure DO Nathanael Brunner Work Phone: [facility] Work Phone: Start: 10-01-2022 End: 10-01-2022 ambulatory DO Nathanael T Brunner Work Phone: [facility] Work Phone: Start: 10-01-2022 End: 10-01-2022 Patient encounter procedure DO Nathanael Brunner Work Phone: [facility] Work Phone: Start: 09-16-2022 End: 09-16-2022 Patient encounter procedure DO Nathanael Brunner Work Phone: [facility] Work Phone: Start: 08-28-2022 End: 08-28-2022 ambulatory DO Nathanael T Brunner Work Phone: [facility] Work Phone: Start: 08-28-2022 End: 08-28-2022 Patient encounter procedure DO Nathanael Brunner Work Phone: [facility] Work Phone: Start: 08-26-2022 End: 08-26-2022 ambulatory DO Nathanael T Brunner Work Phone: [facility] Work Phone: Start: 08-26-2022 End: 08-26-2022 Patient encounter procedure DO Nathanael Brunner Work Phone: [facility] Work Phone: Start: 08-24-2022 End: 08-24-2022 Emergency department patient visit DO Nathanael Fregosones Work Phone: [facility]-Emergency Department Start: 08-13-2022 End: 08-13-2022 ambulatory DO Nathanael T Brunner Work Phone: [facility] Work Phone: Start: 08-13-2022 End: 08-13-2022 Patient encounter procedure DO Nathanael Brunner Work Phone: [facility] Work Phone: Start: 07-30-2022 End: 07-30-2022 ambulatory DO Nathanael T Brunner Work Phone: [facility] Work Phone: Start: 07-30-2022 End: 07-30-2022 Patient encounter procedure DO Nathanael Brunner Work Phone: [facility] Work Phone: Start: 07-29-2022 End: 07-29-2022 ambulatory DO Nathanael T Brunner Work Phone: [facility] Work Phone: Start: 07-29-2022 End: 07-29-2022 Patient encounter procedure DO Nathanael Brunner Work Phone: [facility]-Mammography Start: 07-16-2022 End: 07-16-2022 Patient encounter procedure DO Nathanael Brunner Work Phone: [facility]-Laboratory - [facility] Offsite Start: 06-30-2022 End: 06-30-2022 ambulatory DO Nathanael T Brunner Work Phone: [facility] Work Phone: Start: 06-30-2022 End: 06-30-2022 Patient encounter procedure DO Nathanael Brunner Work Phone: [facility] Start: 06-17-2022 End: 06-17-2022 ambulatory DO Nathanael Brunner Work Phone: [facility] Work Phone: Start: 06-17-2022 End: 06-17-2022 Patient encounter procedure DO Nathanael Brunner Work Phone: [facility] Start: 06-11-2022 End: 06-11-2022 ambulatory DO Nathanael Brunner Work Phone: [facility] Work Phone: Start: 06-11-2022 End: 06-11-2022 Patient encounter procedure DO Nathanael Brunner Work Phone: [facility] Start: 05-27-2022 End: 05-27-2022 Patient encounter procedure DO Nathanael Brunner Work Phone: [facility] Start: 04-29-2022 End: 04-29-2022 ambulatory DO Nathanael Brunner Work Phone: [facility] Work Phone: Start: 04-29-2022 End: 04-29-2022 Patient encounter procedure DO Nathanael Brunner Work Phone: [facility] Start: 04-13-2022 End: 04-13-2022 ambulatory DO Nathanael Brunner Work Phone: [facility] Work Phone: Start: 04-13-2022 End: 04-13-2022 Patient encounter procedure DO Nathanael Brunner Work Phone: [facility]-Laboratory - [place] [facility] Start: 04-08-2022 End: 04-08-2022 ambulatory DO Nathanael Brunner Work Phone: [facility] Work Phone: Start: 04-08-2022 End: 04-08-2022 Patient encounter procedure DO Nathanael Brunner Work Phone: [facility] Start: 04-06-2022 End: 04-06-2022 ambulatory DO Nathanael Brunner Work Phone: [facility] Work Phone: Start: 04-06-2022 End: 04-06-2022 Patient encounter procedure DO Nathanael Brunner Work Phone: [facility]-Laboratory Start: 02-26-2022 End: 02-26-2022 ambulatory DO Myrna Barrs Work Phone: [facility] Work Phone: Start: 02-26-2022 End: 02-26-2022 Patient encounter procedure DO Myrna Alvarenga Work Phone: [facility]-Nutrition Education Start: 02-04-2022 End: 02-04-2022 ambulatory DO Myrna Cody Alvarenga Work Phone: [facility] Work Phone: Start: 02-04-2022 End: 02-04-2022 Patient encounter procedure DO Myrna Alvarenga Work Phone: [facility] Start: 01-08-2022 End: 01-08-2022 Patient encounter procedure DO Myrna Alvarenga Work Phone: [facility] Start: 12-17-2021 End: 12-17-2021 Patient encounter procedure DO Myrna Alvarenga Work Phone: [facility]-Radiology Start: 12-04-2021 End: 12-04-2021 Patient encounter procedure DO Myrna Alvarenga Work Phone: [facility] Cardiology Start: 12-03-2021 End: 12-03-2021 Patient encounter procedure DO Myrna Alvarenga Work Phone: [facility] [employer] Start: 11-29-2021 End: 11-29-2021 Patient encounter procedure DO Myrna Alvarenga Work Phone: [facility] Urgent Care Start: 11-19-2021 End: 11-19-2021 Patient encounter procedure DO Myrna Alvarenga Work Phone: [facility]-Laboratory Start: 11-05-2021 End: 11-05-2021 Patient encounter procedure DO Myrna Alvarenga Work Phone: [facility] Procedures Date Procedure Procedure Detail Performing Clinician Start: 03-27-2024 Microscopic urinalysis Nicole Barga DO Work Phone: Start: 03-27-2024 CT of abdomen and pe lvis without contrast Nicole Barga DO Work Phone: Start: 02-17-2024 Urine culture Nicole Barga DO Work Phone: Start: 01-16-2024 Urine culture Nicole Barga DO Work Phone: Start: 01-16-2024 CT of abdomen and pe lvis without contrast Nicloe Barga DO Work Phone: Start: 01-16-2024 Microscopic urinalysis Nicole Barga DO Work Phone: Start: 12-03-2023 Urine culture Nicole Barga DO Work Phone: Start: 10-14-2023 End: 10-14-2023 Trichomonas vaginalis detection DO Nicole Barga Work Phone: Start: 10-14-2023 Urine culture DO Elizab eth Barga Work Phone: Start: 08-16-2023 Radiologic exam abdo men 1 view Mihir Awan DO Work Phone: Start: 08-13-2023 Urine culture DO Francieb roxana Barga Work Phone: Start: 08-03-2023 Radiography of [id number]-efipdns DO Nicole Fregosoga Work Phone: Start: 08-03-2023 Urine culture DO Francieb roxana Garcia Work Phone: Start: 08-02-2023 Screening mammography D O Nicole Garcia Work Phone: Start: 04-12-2023 Microscopic urinalysis DO Nicole Garcia Work Phone: Start: 04-12-2023 Blood count hematocrit DO Nicolepat Garcia Work Phone: Start: 04-12-2023 CT of abdomen and pe lvis without contrast DO Nicole Garcia Work Phone: Start: 02-15-2023 XR Dexa & VFA & TBS DO Nicole Garcia Work Phone: Start: 12-21-2022 Blood count hematocrit DO Nathanael Brunner Work Phone: Start: 12-15-2022 Urine culture DO Darling as Brunner Work Phone: Start: 11-21-2022 Urine culture DO Darling as Brunner Work Phone: Start: 08-24-2022 Microscopic urinalysis DO Nathanael Brunner Work Phone: Start: 08-24-2022 Blood count hematocrit DO Nathanael Brunner Work Phone: Start: 08-24-2022 CT of abdomen and pe lvis without contrast DO Nathanael Brunner Work Phone: Start: 08-24-2022 Urine culture DO Darling as Brunner Work Phone: Start: 07-29-2022 Screening mammography D O Nathanael Brunner Work Phone: Start: 06-30-2022 Urine culture DO Darling Brunner Work Phone: Start: 12-17-2021 Dual energy X-ray absorptiometry DO Myrna Alvarenga Work Phone: Start: 11-19-2021 Blood count hematocrit DO Myrna Alvarenga Work Phone: Start: 02-19-2020 Electrocardiogram Urine culture DO Myrna moura Work Phone: Plan of Treatment Date Care Activity Detail Author Start: 08-24-2026 Urine microalbumin profile DTaP,Tdap,Td Vaccine (2 - Td or Tdap) [facility] Start: 03-27-2024 Bacteria identified in Blood by Culture Blood Culture [facility] Start: 03-27-2024 Blood culture for bacteria, including anaerobic screen Blood Culture [facility] Start: 02-17-2024 Bacteria identified in Urine by Culture [facility] Start: 01-16-2024 Bacteria identified in Urine by Culture [facility] Start: 12-03-2023 Bacteria identified in Urine by Culture [facility] Start: 10-14-2023 Bacteria identified in Urine by Culture [facility] Start: 10-14-2023 Trichomonas vaginalis (MAICO Trichomonas vaginalis (MAICO [facility] Start: 10-14-2023 Bacterial vaginosis and vaginitis rRNA panel - Vaginal fluid by Probe [facility] Start: 08-16-2023 End: 11-15-2023 ACETYLCHOLINE REC BINDING AB [facility] Work Phone: Comment on above: Expected: 08/16/2023, Expires: 4 Start: 08-16-2023 End: 11-15-2023 AMINO ACIDS, PLASMA W/ CONSULTATION [facility] Work Phone: Comment on above: Expected: 08/16/2023, Expires: 4 Start: 08-16-2023 End: 11-15-2023 CARNITINE FREE/TOTAL, PLASMA [facility] Work Phone: Comment on above: Expected: 08/16/2023, Expires: 4 Start: 08-16-2023 End: 11-15-2023 CYTOKINE PANEL 13, SERUM [facility] Work Phone: Comment on above: Expected: 08/16/2023, Expires: 4 Start: 08-16-2023 End: 11-15-2023 Erythrocyte sedimentation rate [facility] Work Phone: Comment on above: Expected: 08/16/2023, Expires: 4 Start: 08-16-2023 End: 11-15-2023 ESTROGEN FRACTION BL [facility] Work Phone: Comment on above: Expected: 08/16/2023, Expires: 4 Start: 08-16-2023 End: 11-15-2023 Glutamate decarboxylase 65 Ab [Units/volume] in Serum [facility] Work Phone: Comment on above: Expected: 08/16/2023, Expires: 4 Start: 08-16-2023 End: 11-15-2023 IgA [Mass/volume] in Serum or Plasma [facility] Work Phone: Comment on above: Expected: 08/16/2023, Expires: 4 Start: 08-16-2023 End: 11-15-2023 IgG [Mass/volume] in Serum or Plasma [facility] Work Phone: Comment on above: Expected: 08/16/2023, Expires: 4 Start: 08-16-2023 End: 11-15-2023 IgM [Mass/volume] in Serum or Plasma [facility] Work Phone: Comment on above: Expected: 08/16/2023, Expires: 4 Start: 08-16-2023 End: 11-15-2023 Lactate dehydrogenase [Enzymatic activity/volume] in Serum or Plasma [facility] Work Phone: Comment on above: Expected: 08/16/2023, Expires: 4 Start: 08-16-2023 End: 11-15-2023 ORGANIC ACIDS UR, QUANT W/CONSULTATION [facility] Work Phone: Comment on above: Expected: 08/16/2023, Expires: 4 Start: 08-16-2023 End: 11-15-2023 PYRUVATE+LACTATE BL [facility] Work Phone: Comment on above: Expected: 08/16/2023, Expires: 4 Start: 08-16-2023 End: 11-15-2023 VOLTAGE GATED CA IGG [facility] Work Phone: Comment on above: Expected: 08/16/2023, Expires: Start: 08-16-2023 End: 11-15-2023 Voltage-gated potassium channel Ab [Moles/volume] in Serum [facility] Work Phone: Comment on above: Expected: 08/16/2023, Expires: Start: 08-13-2023 Bacteria identified in Urine by Culture [facility] Start: 08-13-2023 Bacteria identified in Urine by Culture [facility] Start: 08-03-2023 Radiography of shgywu-yyxikv-mlybpgi XR KUB [facility] Start: 08-03-2023 XR Abdomen Single view [facility] Start: 08-02-2023 MG Breast Screening [facility] Start: 08-02-2023 Screening mammography MM 3D screening BI [facility] Start: 05-31-2023 Advance Directive Discussion Advance Directive Discussion [facility] Start: 05-31-2023 Depression Assessment Depression Assessment [facility] Start: 04-12-2023 Bacteria identified in Urine by Culture [facility] Start: 02-26-2023 Diabetes Screening Diabetes Screening [facility] Start: 02-15-2023 XR Dexa & VFA & TBS XR Dexa & VFA & TBS [facility] Start: 01-29-2023 Covid-19 Vaccine (2022- season) Covid-19 Vaccine (2022- season) [facility] Start: 01-29-2023 Influenza vaccination Influenza Vaccine (#1) [facility] Start: 12-15-2022 Bacteria identified in Urine by Culture [facility] Start: 11-21-2022 Bacteria identified in Urine by Culture [facility] Start: 08-24-2022 Bacteria identified in Urine by Culture [facility] Start: 07-29-2022 Screening mammography MM 3D screening BI [facility] Start: 06-30-2022 Bacteria identified in Urine by Culture [facility] Start: 12-17-2021 Dual energy X-ray absorptiometry [facility] Start: 2009 Screening for osteoporosis Bone Density Screening [facility] Start: 1962 Hepatitis C screening Hepatitis C Screening [facility] B12/folate level [facility] Bacteria identified in Urine by Culture Urine Culture [facility] Bacteria identified in Urine by Culture [facility] Bacterial nucleic acid assay [facility] Basic metabolic 2000 panel - Serum or Plasma [facility] Tyra sp rRNA [Pre sence] in Vaginal fluid by Probe [facility] Electrogastrography dx transcutaneous EGG (ELECTROGASTROGRAPHY) Procedures Routine Gastroparesis Ordered: 07/07/[address] [facility] Work Phone: Comment on above: Ordered: 07/07/2023 Lactobacillus crispatus+gasseri+jensenii + Gardnerella vaginalis + Atopobium vaginae rRNA [Presence] in Vaginal fluid by MAICO with probe detection [facility] MG Breast Diagnostic [facility] MG Breast Diagnostic [facility] Patient Education [facility], [facility] Patient referral [facility] Work Phone: Plasma parathyroid h ormone level [facility] T4 free measurement [facility] T4 free measurement [facility] Thyroid stimulating hormone measurement [facility] Thyrotropin [Units/v olume] in Serum or Plasma [facility] Trichomonas vaginali s detection [facility] Urinalysis macro (di pstick) panel - Urine [facility] Urinalysis macro (di pstick) panel - Urine [facility] Urine culture [facility] Immunizations Immunization Date Immunization Notes Care Provider Jessica lynn 02-04-2024 COVID-19 (PFR) 2023 12Y and older Nicole Garcia DO Work Phone: [facility] 02-04-2024 influenza, high dose seasonal, preservative-free Nicole Garcia DO Work Phone: [facility] 05-22-2023 RSV, recomb., protei n subunit RSVpreF, adj. DO Nicole Garcia Work Phone: [facility] 02-06-2022 COVID-19 MODERNA Bivalent Booster 18+ DO Nathanael Brunner Work Phone: [facility] 02-06-2022 Influenza Vaccine Quadrivalent Adjuvanted PF DO Nathanael Brunner Work Phone: [facility] 02-06-2022 influenza virus vacc ine, unspecified formulation Mihir Awan DO Work Phone: [facility] 09-11-2021 COVID-19 PFIZER Mitch-sucrose Age 12+ DO Myrna Alvarenga Work Phone: [facility] 03-24-2021 COVID-19 MODERNA DO Myrna M ills Work Phone: [facility] 02-06-2021 Influenza, high-dose , quadrivalent, 0.7ml, PF DO Myrna Alvarenga Work Phone: [facility] 07-27-2020 COVID-19 MODERNA DO Myrna M ills Work Phone: [facility] 07-08-2020 COVID-19 PFIZER DO Myrna Mi lls Work Phone: [facility] 06-29-2020 COVID-19 MODERNA DO Myrna M ills Work Phone: [facility] 06-19-2020 COVID-19 PFIZER DO Myrna Mi lls Work Phone: [facility] 02-20-2020 Influenza, high-dose , quadrivalent, 0.7ml, PF DO Myrna Alvarenga Work Phone: [facility] 02-23-2019 influenza, seasonal, injectable DO Myrna Alvarenga Work Phone: [facility] 09-13-2018 zoster vaccine recombinant DO Myrna Alvarenga Work Phone: [facility] 05-25-2018 zoster vaccine recombinant DO Myrna Alvarenga Work Phone: [facility] 02-05-2018 influenza, high dose seasonal, preservative-free DO Myrna Alvarenga Work Phone: [facility] 02-23-2017 influenza, seasonal, injectable DO Myrna Alvarenga Work Phone: [facility] 08-24-2016 tetanus toxoid, redu timothy diphtheria toxoid, and acellular pertussis vaccine, adsorbed DO Myrna Alvarenga Work Phone: [facility] 06-08-2016 pneumococcal polysaccharide vaccine, 23 valent DO Myrna Alvarenga Work Phone: [facility] 01-19-2016 influenza, high dose seasonal, preservative-free DO Myrna Alvarenga Work Phone: [facility] 05-20-2015 pneumococcal conjuga te vaccine, 13 valent DO Myrna Alvarenga Work Phone: [facility] 02-20-2015 influenza, injectabl e, quadrivalent, contains preservative DO Myrna Alvarenga Work Phone: [facility] 01-31-2015 influenza, high dose seasonal, preservative-free DO Myrna Alvarenga Work Phone: [facility] 02-26-2014 influenza, seasonal, injectable DO Myrna Alvarenga Work Phone: [facility] 02-22-2013 influenza, seasonal, injectable DO Myrna Alvarenga Work Phone: [facility] 06-16-2011 zoster vaccine, live DO Raquel ly Alvarenga Work Phone: [facility] 06-11-2011 pneumococcal polysaccharide vaccine, 23 valent DO Myrna Alvarenga Work Phone: [facility] Payers Date Payer Category Payer Self-pay [id number] 2020 Medicare [id number] 2020 Private Health Insurance [employer] A ETNA MEDICARE SUPPLEMENT [id number] 2020-Present [phone] [address] [address] [place] [address] Indemnity [id number] 2009 Medicare [id number] 2009 Medicare MEDICARE MEDICAR E A AND B [id number] 2009-Present [phone] [address] [address] [place] [address] Medicare [id number] 1944 Unknown [id number]. 1185 1944 Unknown [id number]. 1185 1944 Unknown [id number]. 1185 1944 Unknown [id number]. 1185 1944 Unknown [id number]. 1186 1944 Unknown [id number]. 1186 1944 Unknown [id number] [id number]. 1186 1944 Unknown [id number]. 1186 1944 Unknown [id number] [id number]. 1186 1944 Unknown [id number]. 1186 1944 Unknown [id number]. 1186 Unknown [employer] M[employer] SUPP [id number] Social History Date Type Detail Facility Start: 12-04-2021 End: 03-30-2024 Tobacco smoking status AZIS Ex-smoker (finding) [facility] Start: 12-04-2021 0 [facility] Start: 12-04-2021 Denies Use [facility] Start: 1945 Sex Assigned At Female [facility] Start: 02-04-2022 Alone [facility] Start: 06-17-2022 Other Family Member(s) [facility] Start: 08-24-2022 Sammarinese [facility] Start: 04-12-2023 Never Used [facility] Tobacco smoking status AZIS Tobacco smoking consumption unknown [facility] Start: 1945 Sex Assigned At Not on file [facility] Start: 08-16-2023 Gender identity Not on file [facility] Start: 08-16-2023 History of Social function [facility] National Score (1-100), lower number is lower risk 53 [facility] Start: 01-16-2024 End: 03-30-2024 Sex Female (finding) [facility] NEGATED: Highlighted row [facility] Goals Date Patient Goal Desired Activity /State Clinical Notes 11-13-2021 to 03-30-2024 Note Date & Type Note Facility 03-30-2024 Progress note [facility] [employer] [facility] 03-27-2024 Progress note [facility] 03-27-2024 Radiology Diagnostic study note [place] [id number] [facility] [place] [address] [place] Scan Report Signed Patient Name: Sherry Ash dical Record #: [id number] Date of : 1945 Accoun t #:[id number] Age/Sex: 78 / F Location: ED Attending physician: Ordering Provider: Hugh Julian MD Date of Service: 03/27/24 Procedure(s): CT abd/pel wo con HISTORY: Lower abdominal pain. Possible kidney infection Study: CT abdomen and pelvis without contrast dated 03/27/2024. 10:13 a.m. TECHNIQUE: Axial images were obtained from the dome of the diaphragm down to the symphysis pubis without oral or IV contrast. Coronal and sagittal reconstruction imaging was performed. Coronal MPR images were reconstructed from the 3D data set. Individualized dose optimization techniques were used for the CT scan. Findings: In the lower thorax, a small right lower lobe pulmonary nodule measures about 7 mm likely benign. Within the abdomen, patient has had a previous cholecystectomy. The liver is otherwise normal. The spleen is normal. The pancreas is normal. The adrenal glands are normal. Bilateral extrarenal pelvii are noted with proximal hydronephrosis. The ureters are not dilated. No ureteral stones. Sigmoid diverticulosis is present. Bladder contours are smooth. IMPRESSION: Extrarenal pelves bilaterally with an element of congenital UPJ narrowing proximal hydronephrosis. Benign-appearing 7 mm right pulmonary nodule in the right lower lobe likely benign. 6-month follow-up CT of the chest is recommended to ensure stability. Sigmoid diverticulosis. Dictated By: Mihir Myers MD Signed By: 03/27/24 1037 DD/ 1034 TD/TT: 03/27/24 1034 Impregnator And Drier Helper: NATALIE Exam/Order Verified? Y Exam Explained to Patient/Family? Y Was Patient Shielded?N Is Patient ? N Consent Form Completed? Hx Last Menstrual Period: Does Patient have a Diabetic Device? No Diabetic Device Type: Was the Diabetic Device Removed? If NO: was Removal Consent form completed? Patient was informed of radiation exposure prior to scan? Verified by Technologist:[id number] Comment: [phone] cc: DO Hugh Bustos MD [facility] Work Phone: 02-28-2024 Progress note [facility] [email or web address] 01-24-2024 Evaluation note Diagnosis Onset Date Resolution Acute UTI (urinary tract infection) acute January 23 2:15pm Senile purpura acute December 2:15pm Anxiety chronic January 23, 2 024 2:15pm Psoriasis chronic January 23, 2 024 2:15pm Anxiety chronic January 2:22pm Gastroparesis chronic January 292023 2:22pm GERD (gastroesophageal reflux disease) chronic February 17, 2024 2:22pm Dysuria noneactive January 2:22pm Abdominal bloating noneactive 2023 2:22pm [facility] [employer] [facility] Work Phone: [phone] Evaluation note* Diagnosis Onset Date Resolution Status Admit Date Acute UTI (urinary tract infection) acute January 23 2:15pm Senile purpura acute December 2:15pm Anxiety chronic January 23, 2 024 2:15pm Psoriasis chronic January 23, 2 024 2:15pm Anxiety chronic January 2:22pm Gastroparesis chronic January 292023 2:22pm GERD (gastroesophageal reflu x disease) chronic February 17, 2024 2:22pm Dysuria noneactive January 2:22pm Abdominal bloating noneactive 2023 2:22pm Postmenopausal acute February 28, 2024 10:08am Osteoporosis chronic February 272023 10:08am [facility] Work Phone: [phone] Radiology Diagnostic study [place] [id number] CT Scan Report Signed Patient Name: Sherry Ash Ok dical Record #: [id number] Date of : 1945 Accoun t #:[id number] Age/Sex: 78 / F Location: ED Attending physician: Ordering Provider: Meena Dallas DO Date of Service: 01/16/24 Procedure(s): CT abd/pel wo con HISTORY: UTI symptoms. Abdominal distention. Time: 8:30 a.m. on 01/16/2024 Comparison: 04/12/2023 CT scan TECHNIQUE: Axial images were obtained from the dome of the diaphragm down to the symphysis pubis without oral or IV contrast. Coronal and sagittal reconstruction imaging was performed. Coronal MPR images were reconstructed from the 3D data set. Individualized dose optimization techniques were used for the CT scan. Findings: The lung bases are clear. The liver and spleen demonstrate splenic calcifications consistent with prior granulomatous disease exposure. There are also a few liver calcifications consistent with the same. Been prior cholecystectomy There are heavy vascular calcifications. Changes of chronic UPJ stenosis suggested with moderately severe bilateral hydronephrosis with marked renal pelves dilatation with abrupt transition to a normal caliber ureters at the level of the UPJ bilaterally. Urinary bladder is relatively decompressed but appears grossly unremarkable. No obstructing ureteral stones. There is descending and sigmoid colonic diverticulosis without CT evidence for diverticulitis No free air or free fluid in the abdomen/pelvis or retroperitoneum. No acute bony abnormalities No CT findings of acute appendicitis Impression: Redemonstration of CT findings compatible with chronic bilateral UPJ stenoses. No significant interval change from the 2022 examination. There is redemonstration of a calcification in the right renal hilum, unchanged from 202, likely vascular in there is suggestion of a punctate upper pole right renal stone versus vascular calcification. As above, no ureteral stones. Heavy vascular calcifications Redemonstration of descending and sigmoid colonic diverticulosis without CT evidence for diverticulitis. Sequelae of prior granulomatous disease exposure. Post cholecystectomy changes. Dictated By: Jose Daniel Carlin MD Signed By: 01/16/24 0859 DD/ TD/TT: 01/16/24855 Impregnator And Drier Helper: [facility] Exam/Order Verified? Y Exam Explained to Patient/Family? Y Was Patient Shielded?N Is Patient ? Consent Form Completed? Hx Last Menstrual Period: Does Patient have a Diabetic Device? No Diabetic Device Type: Was the Diabetic Device Removed? If NO: was Removal Consent form completed? Patient was informed of radiation exposure prior to scan? Verified by Technologist:[id number] Comment: [id number] cc: Meena Dallas, DO Nicole Garcia, [facility]07-05-2024 Evaluation note* Diagnosis Onset Date Resolution Status Admit Date Chronic right-sided low back pain with right-sided sciatica acute December 03, 2023 1 0:55am UTI (urinary tract infection) noneac tive December 03, 2023 10:55am Vulvovaginitis due to yeast noneacti ve December 03, 2023 10:55am Acute UTI (urinary tract infection) acute January 23 2:15pm Senile purpura acute December 2:15pm Anxiety chronic January 23, 024 2:15pm Psoriasis chronic January 23, 024 2:15pm Anxiety chronic January 2:22pm Gastroparesis chronic January 292023 2:22pm GERD (gastroesophageal reflu x disease) chronic February 17, 2024 2:22pm Dysuria noneactive January 2:22pm Abdominal bloating noneactive 2023 2:22pm [facility] Work Phone: [phone] Evaluation note* Diagnosis Onset Date Resolution Status Admit Date Chronic idiopathic constipation acut e November 17, 2023 2:33pm MDD (major depressive disorder), recurrent severe, without psychosis acute November 16 2:33pm Anxiety chronic November 16 2:33pm Yeast dermatitis noneactive October 2:33pm Chronic right-sided low back pain with right-sided sciatica acute J 2023 10:55am UTI (urinary tract infection) noneac tive December 03, 2023 10:55am Vulvovaginitis due to yeast noneacti ve December 03, 2023 10:55am [facility] Work Phone: [phone] Miscellaneous Notes* Telephone Encounter - Pablo Messer RN - 08/24/2023 11:23 AM EDT Called patient, confirmed identity. Talked with patient , Gave patient information to contact pharmacist re other medication same class , covered by her insurance and less expensive. May also use Apps or coupons for medications on good Rx or other websites.Can contact purchasing supervisor to see if she is eligible for program from them Patient is not interested in taking medication at this time She states that no longer diagnosed with gastroparesis, and since restrictions on diet have stoppedShe has been feeling better. Patient may go back to normal diet including dietary fiber as tolerated for regularity . Please call us back and let us know if any problems or concerns [facility] [phone] documented in this encounterWhite [facility]24 Miscellaneous Notes* Telephone Encounter - Gin Nichols RN - 08/20/2023 9:09 AM EDT Call placed to patient. Left message to return call to discuss concerns. Call back number provided. documented in this encounterWhite Hospital03-21-2024 NoteHNO ID: [id number] Author: MIHIR AWAN DO Service: ? Author Type: Physician Type: Progress Notes Filed: 08/19/2023 14:58 Note Text:[facility]03-21-2024 History of Present illness Narrative* Mihir Awan DO - 08/19/2023 2:57 PM EDT Images from the original note were not included. documented in this encounterWhite Hospital03-18-2024 NoteHNO ID: [id number] Author: JOSE ROBLES RT(R) Service: Radiology Author Type: Technologist Type: Progress Notes Filed: 08/16/2023 14:43 Note Text: Radiology Service Progress Note PATIENT NAME: Sherry Ash DATE OF SERVICE: August 16, 2023 TIME: 2:43 PM PATIENT IDENTITY VERIFICATION COMPLETED USING TWO (2) IDENTIFIERS: Name and Date of confirmed by patient verbally. FALL SCREENING: Has the patient had 2 falls in the last year or 1 fall with injury or currently using an Ambulatory Assistive Device (Walker, Cane, Wheelchair, Crutches, etc.)? No PATIENT GENDER DATA: Female. status: : No status: NO. PATIENT RELEVANT IMPLANT DATA REVIEWED: Not Applicable PATIENT PRESENTS WITH AN IMPLANTABLE OR ATTACHED MORTGAGE LOAN OFFICER ORIGINATOR: No RADIOLOGY DEPARTMENT: General X-ray: Exam(s) Completed: Abdomen X-Ray: Abdomen PERIPHERAL IV DATA: Not applicable SIGNED BY: RT Connor(R) August 16, 2023 2:43 [facility]03-18-2024 History of Present illness Narrative* Jose Robles RT(R) - 08/16/2023 3:30 PM EDT Radiology Service Progress Note PATIENT NAME: Sherry Ash DATE OF SERVICE: August 16, 2023 TIME: 2:43 PM PATIENT IDENTITY VERIFICATION COMPLETED USING TWO (2) IDENTIFIERS: Name and Date of confirmedby patient verbally. FALL SCREENING: Has the patient had 2 falls in the last year or 1 fall with injury or currently using an Ambulatory Assistive Device (Walker, Cane, Wheelchair, Crutches, etc.)? No PATIENT GENDER DATA: Female. status: : No status: NO. PATIENT RELEVANT IMPLANT DATA REVIEWED: Not Applicable PATIENT PRESENTS WITH AN IMPLANTABLE OR ATTACHED MORTGAGE LOAN OFFICER ORIGINATOR: No RADIOLOGY DEPARTMENT: General X-ray: Exam(s) Completed: Abdomen X-Ray: Abdomen PERIPHERAL IV DATA: Not applicable SIGNED BY: RT Connor(R) August 16, 2023 2:43 PM documented in this encounterWhite Hospital03-18-2024 NoteHNO ID: [id number] Author: ANNABEL BANKS, DO Service: ? Author Type: Physician Type: Progress Notes Filed: 08/16/2023 18:53 Note Text: [facility] [employer] Gastroparesis/Dysmotility Consultation SERVICE DATE: 08/16/2023 SERVICE TIME: 1:26 PM PRIMARY CARE PHYSICIAN: No primary care provider on file. Taty Noble MD [address] [address] My final recommendations will be communicated back to the requesting physician by way of shared Medical record or letter to requesting physician via [place] mail. Assessment ASSESSMENT 77 year old female with medical refractory gastroparesis, the etiology of which is most likely idiopathic, and more likely represents secondary delayed gastric emptying due to lower GI dysmotility. There is clinical suspicion for mid/hind-gut dysmotility based on bowel patterns and symptom distribution. She does exhibit symptom improvement following aggressive Miralax clean out . Case is further confounded by prior GERD which is reasonably controlled on PPI, but with breakthrough belching, as well as significant anxiety which likely increase sympathetic tone and central sensitization of symptoms. Currently patient is tolerating a Regular diet, and does not exhibit severe malnutrition/weight loss. Based on patient's etiology, current symptoms, and dysmotility workup, I am uncertain if patient is an appropriate candidate for pyloric therapy. It was discussed in detail that the procedure would primarily aim to improve symptoms of vomiting/retching as well as delayed fullness. There may be some ancillary improvements to a lesser extent in areas of nausea and upper abdominal pressure, but is not guaranteed. Symptoms response of pain, nausea, bloating, and bowel patterns are unpredictable and may be confounded by other factors. Patient will ultimately require longitudinal adjunctive care including medical, nutritional/dietary, and behavioral/psychosocial support for optimal symptom palliation PLAN I discussed surgical therapy for gastroparesis in detail. Based on this discussion, Sherry Berlin wishes to proceed with continued medical therapies - Recommend trial of FODMAP diet and/or FODZYME supplement - Agree with Trial of Linzess, may continue Miralax BID-TID as needed - Continue PPI once daily for GERD - Consider ARM and Defecography in future - Patient may follow up with me PRN via virtual visit. Consider trial of pyloric dilation if dyspepsia worsens or no response to medical/dietary therapies Risks of the procedure including bleeding (including major bleeding requiring transfusion), perforation, infection/abscess, ulceration (need for adherence to acid suppressive therapy), exacerbation of symptoms, symptom recurrence, anesthesia related complications, cardiopulmonary events, thromboembolic events, aspiration/pneumonia, dental gum injury, failure to identify/treat a condition, need for additional procedures/surgeries, as well as other rare complications including were presented. Alternatives of Pyloroplasty, Pyloric Dilation and Botox, and continued medical/dietary management were reviewed. NAME: Sherry Ash CLINIC NO: [id number] DATE OF SERVICE: August 16, 2023 This is an initial consultation for Sherry Ash who was referred to me by Taty Noble CNP for evaluation of medical refractory gastroparesis. My final recommendation will be communicated via shared electronic medical record. CHIEF COMPLAINT Idiopathic Gastroparesis HISTORY OF PRESENT ILLNESS Sherry Ash is a 77 year old female who comes in today for surgical evaluation for management of gastroparesis. The patient has been evaluated thoroughly including an EGD, and gastric emptying study. History is notable for anxiety, depression, congential ureteropelvic junction obstruction, gastritis, GERD, granulomatous disease, mitral regurgitation, pancreatitis, HTN, appendectomy, cholecystectomy and hysterectomy. Patient had an abnormal gastric emptying study 04/2021 showing 25% retention at 4 hours. Top 3 Symptoms: 1) Bloating, 2) Fullness, 3) Burning Pain Duration of symptoms (months): 5 years Diet: Semi regular, tries to follow GP diet Weight changes in last 3 months: Stable GERD: Belching and gas, minimal heartburn or regurgitation. Protonix once, uncertain if benefit Dysphagia: No Bowel Movements: Daily BM requiring miralax and suppository. Feels better when more cleaned. 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 Author Type: Physician Type: Progress Notes Filed: 08/16/2023 14:08 Note Text: GASTROPARESIS CONSULT Patient is referred by Dr. Taty Noble for an opinion regarding GP and my final recommendations will be communicated back to the requesting physician by way of a copy of today's office notes. PRESENTING COMPLAINT AND HISTORY Sherry is a 77 yr old female w/hx of anxiety, depression, congential ureteropelvic junction obstruction, gastritis, GERD, granulomatous disease, mitral regurgitation, pancreatitis, HTN, bladder repair, appendectomy, cholecystectomy and hysterectomy that had an abnormal gastric emptying study 04/2021 showing 25% retention at 4 hours. She had severe GERD and gas dating back to 2017. The bowels are moving only with miralax. She is trying to keep the bowels moving daily if possible. Patient is interested in learning more about EMPTIES Trial: no Patient is a candidate for EMPTIES Trial: No Gastrointestinal Symptoms Reflux/heartburn: Yes pantoprazole, carafate Abdominal pain/discomfort: Yes Weight loss: No Lost na lbs in na months Weight gain: No Gained na lbs in na months Do you have less than 3 bowel movements per week? No Diarrhea: No Constipation: Yes Malnutrition: No Gastroparesis Cardinal Symptom Index (CGSI) 1. Nausea: 3 2. Retchin 3. Vomitin 4. Stomach fullness: 5 5. Not able to finish a normal-sized meal: 0 6. Feeling excessively full after meals: 0 7. Loss of appetite: 0 8. Bloating (feeling like you need to loosen your clothes): 5 9. Stomach or belly visibly larger: 5 CGSI Score: 2.41 Scale (0-none; 1-very mild; 2-mild; 3-moderate; 4-severe; 5-very severe) MEDICATION HISTORY Promotility Drugs - Reglan (Metoclopramide): Yes - Gimoti (Metoclopramide nasal): No - Motilium (Domperidone): No - Erythromycin (E-mycin): No - Propulsid (Cisapride)_: No Other - Tricyclic Antidepressants (nortriptyline - Pamelor; amitriptyline - Elavil): No - Buspirone (Buspar): No - Mirtazapin (Remeron): No Anti-Nausea Medications - Compazine (Prochlorperazine): Yes - Phenergan (Promethazine): Yes - Benadryl (Diphenhydramine): Yes - Zofran (Ondansetron): No - Scopace (Scopolamine Patch): No - Granisetron (Kytril or Sancuso): No - Tigan (Trimethobenzamide)_: No Constipation Medications - Bulking Agents (Metamucil,Citrucel, Fibercon): Yes - Osmotic Laxatives (MOM, Polyethylene glycol (PEG), lactulose, sorbitol,MiraLax, Chronulal, Cephulac,Xylitol): Yes - Stimulant Laxatives (Ex-Lax, Senokot,Correctol, Dulcolax): Yes - Stool Softeners (Colace): Yes - Chloride Channel Activator (Amitiza): No - Linzess: No - Trulance: No - Motegrity: No Pain Medications - Does the patient see a aircraft painter apprentice for chronic abdominal pain?No - Is the patient taking narcotic pain medication for chronic abdominal pain? No - Narcotic Medications: (Tramadol, Fentanyl, codeine, hydrocodone, Hydromorphone, methadone, morphine, Oxycodone) No Drug use - History or current drug use (Marijuana, Cocaine, Heroine, etc...) No Eating Disorders - Does the patient have a history of eating disorders No If yes, please explain: na Psychiatric Disorders - Does the patient have a history of psychiatric disorders including PTSD: No If yes, please explain: na Nutrition - Has the patient met with a table keeper for diet recommendations with Gastroparesis? No - Jejunostomy (J-tube): _No - Gastrostomy (G-tube): No - Gastro-Jejunostomy (GJ-tube): _No - Nasojejunal (NJ-tube): _No - Nasogastric (NG-tube): _No - TPN (IV): _No - IV home hydration (IV): _No Medical Records - Has the patient had a smart capsule study completed? No - Does the patient have a history of any foregut surgery (vagotomy, hiatal hernia repair/MARIBELL Fundoplication, Heller Myotomy, gastrectomy, gastric bypass)?No If surgery, recent UGI? No - EGD: Yes - Botox Injections: No If yes was the Botox effective, and for how long: na Patient Name Sherry Ash Age [age] year old Gastroparesis Consult Test Date Completed Results Labs EGD 04/01/2020 [facility] Impression: - 2 cm hiatal hernia. - Normal stomach. - Normal examined duodenum. - The CAO pH capsule was deployed. - No specimens collected. XR ABd 02/27/2020 [facility] IMPRESSION: 1. 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 Small bowel distention may reflect ileus or partial obstruction. UGI w/small bowel 08/21/2019 [facility] Findings: The hypopharynx cervical and thoracic esophagus appear normal. There is no narrowing or obstruction. There is normal motility. There is a tiny hiatal hernia. Slight reflux was demonstrated. The stomach and duodenum appear normal. The stomach empties readily. There is no evidence of peptic ulcer disease or neoplasm. The prox (more content not included)... [facility]03-18-2024 Nurse Note* Irma Crawley MA - 08/16/2023 1:37 PM EDT What is the reason for your visit today? Gastroparesis Who is your referring physician? Dr Awan Are you having poor oral intake? NO Have you had unintentional weight loss of 15 lbs/7 Kg in the last 3-6 months? NO Bowels: constipated Wound: n/a Temperature: No Drains: No documented in this encounterWhite Hospital03-18-2024 History of Present illness Narrative* Annabel Banks DO - 08/16/2023 1:26 PM EDT Images from the original note were not included. [facility] [employer] Gastroparesis/Dysmotility Consultation SERVICE DATE: 08/16/2023 SERVICE TIME: 1:26 PM PRIMARY CARE PHYSICIAN: No primary care provider on file. Taty Noble MD [address] [address] My final recommendations will be communicated back to the requesting physician by way of shared Medical record or letter to requesting physician via [place] mail. Assessment ASSESSMENT 77 year old female with medical refractory gastroparesis, the etiology of which is most likely idiopathic, and more likely represents secondary delayed gastric emptying due to lower GI dysmotility. There is clinical suspicion for mid/hind- gut dysmotility based on bowel patterns and symptom distribution. She does exhibit symptom improvement following aggressive Miralax clean out . Case is furtherconfounded by prior GERD which is reasonably controlled on PPI, but with breakthrough belching, as well as significant anxiety which likely increase sympathetic tone and central sensitization of symptoms. Currently patient is tolerating a Regular diet, and does not exhibit severe malnutrition/weight loss. Based on patient's etiology, current symptoms, and dysmotility workup, I am uncertain if patient isan appropriate candidate for pyloric therapy. It was discussed in detail that the procedure would primarily aim to improve symptoms of vomiting/retching as well as delayed fullness. There may be some ancillary improvements to a lesser extent in areas of nausea and upper abdominal pressure, but isnot guaranteed. Symptoms response of pain, nausea, bloating, and bowel patterns are unpredictable and may be confounded by other factors. Patient will ultimately require longitudinal adjunctive care including medical, nutritional/dietary, and behavioral/psychosocial support for optimal symptom palliation PLAN I discussed surgical therapy for gastroparesis in detail. Based on this discussion, Sherry Davenport to proceed with continued medical therapies - Recommend trial of FODMAP diet and/or FODZYME supplement - Agree with Trial of Linzess, may continue Miralax BID-TID as needed - Continue PPI once daily for GERD - Consider ARM and Defecography in future - Patient may follow up with me PRN via virtual visit. Consider trial of pyloric dilation if dyspepsia worsens or no response to medical/dietary therapies Risks of the procedure including bleeding (including major bleeding requiring transfusion), perforation, infection/abscess, ulceration (need for adherence to acid suppressive therapy), exacerbation of symptoms, symptom recurrence, anesthesia related complications, cardiopulmonary events, thromboembolic events, aspiration/pneumonia, dental gum injury, failure to identify/treat a condition, need for additional procedures/surgeries, as well as other rare complications including were presented. Alternatives of Pyloroplasty, Pyloric Dilation and Botox, and continued medical/dietary management were reviewed. NAME: Sherry Ash CLINIC NO: [id number] DATE OF SERVICE: August 16, 2023 This is an initial consultation for Sherry Ash who was referred to me by Taty Noble CNP for evaluation of medical refractory gastroparesis. My final recommendation will be communicated via shared electronic medical record. CHIEF COMPLAINT Idiopathic Gastroparesis HISTORY OF PRESENT ILLNESS Sherry Ash is a 77 year old female who comes in today for surgical evaluation for management of gastroparesis. The patient has been evaluated thoroughly including an EGD, and gastric emptying study. History is notable for anxiety, depression, congential ureteropelvic junction obstruction, gastritis, GERD, granulomatous disease, mitral regurgitation, pancreatitis, HTN, appendectomy, cholecystectomy and hysterectomy. Patient had an abnormal gastric emptying study 04/2021 showing 25% retention at4 hours. Top 3 Symptoms: 1) Bloating, 2) Fullness, 3) Burning Pain Duration of symptoms (months): 5 years Diet: Semi regular, tries to follow GP diet Weight changes in last 3 months: Stable GERD: Belching and gas, minimal heartburn or regurgitation. Protonix once, uncertain if benefit Dysphagia: No Bowel Movements: Daily BM requiring miralax and suppository. Feels better when more cleaned. 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 There is no narrowing or obstruction. There is normal motility. There is a tiny hiatal hernia. Slight reflux was demonstrated. The stomach and duodenum appear normal. The stomach empties readily. There is no evidence of peptic ulcer disease or neoplasm. The proximal small bowel appears normal. Impression: Tiny hiatal hernia. Slight reflux. Gastroparesis cardinal symptom index 1. nausea 3 2. retching 0 3. vomiting 0 4. stomach fullness 5 5. not able to finish a normal-sized meal 0 6. feeling excessively full after meals 0 7. loss of appetite 0 8. bloating (feeling like you need to loosen your clothes) 5 9. stomach or belly visibly larger 5 GCSI - 2.42 Scale (0-none; 1-very mild; 2-mild; 3-moderate; 4-severe; 5-very severe) PAST HISTORY No past medical history on file. No past surgical history on file. No family history on file. Current Outpatient Medications on File Prior to Visit Medication Sig ALPRAZolam (XANAX) 0.25 mg tablet ALPRAZolam ascorbic acid, vitamin C, (VITAMIN C) 500 mg tablet Take 1 tablet by mouth every 48 hours. FLUTICASONE PROPIONATE NASAL Fluticasone Propionate pantoprazole DR (PROTONIX) 40 mg tablet Take 40 mg by mouth two times a day. loratadine 10 mg cap Take 10 mg by mouth once daily. cholecalciferol (VITAMIN D-3) 50 mcg (2,000 unit) tablet Take 2,000 Units by mouth once daily. metoclopramide HCl (REGLAN) 5 mg tablet Take 5 mg by mouth four times daily. rosuvastatin (CRESTOR) 40 mg tablet Take 40 mg by mouth once daily. No current facility-administered medications on file prior to visit. REVIEW OF SYSTEMS: General: No weight loss, malaise or fevers. Neuro: [place] Palsy (resolved) Respiratory: No history of current cough or dyspnea, or pneumonia in the past 6 weeks. 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 : Denies Endocrine: No history of diabetes. Has not taken steroids within the past 30 days. No history of endocrinological symptoms or problems. Hematology: No history of bleeding or clotting disorder. Pt is not taking anti- coagulation or platelet medications. No history of hematological symptoms or problems. Oncology: No history of CA metastasis, chemo within 30 days, or radiotherapy within 90 days. Has not lost 10% of body wt in 6 months. No history of oncological symptoms or problems. Psych: Anxiety Musculoskeletal: Negative for joint pain or swelling, back pain or muscle pain. Skin: Psoriasis Physical Exam BP 117/58 (BP Position: Sitting, BP Cuff Size: Regular Adult) Pulse 65 Ht 157.5 cm (5' 2 ) Wt67.8 kg (149 lb 7.5 oz) BMI 27.34 kg/m GENERAL: AAOx3, NAD EYES: EOMI, sclera non-icteric ORAL: Moist membranes, tongue midline NECK: No Cervical LN, normal ROM CARDIOVASCULA: RRR PULMONARY: CTAB ABDOMEN - Soft, ND, NT EXTREMITIES: Warm, well perfused, No LE Edema PSYCH: Appropriate mood and Affect SIGNATURE: Annabel Banks DO PATIENT NAME: Sherry Ash DATE: August 16, 2023 TIME: 1:26 PM I spent 45 minutes in the visit, with more than 50% of the total qbaz-lk-cawn time of the visit in counseling / coordination of care. documented in this encounterWhite [facility]03-18-[facility]24 Nurse Note* Cassia Ching MA - 08/16/2023 1:01 PM EDT ELECTROGASTROGRAPY W/ TEST Operation / Procedure performed documented in this encounterWhite Hospital03-18-2024 History of Present illness Narrative* Mihir Awan DO - 08/16/2023 1:00 PM EDT GASTROPARESIS CONSULT Patient is referred by Dr. Taty Noble for an opinion regarding GP and my final recommendations will be communicated back to the requesting physician by way of a copy of today's office notes. PRESENTING COMPLAINT & HISTORY Sherry is a 77 yr old female w/hx of anxiety, depression, congential ureteropelvic junction obstruction, gastritis, GERD, granulomatous disease, mitral regurgitation, pancreatitis, HTN, bladder repair, appendectomy, cholecystectomy and hysterectomy that had an abnormal gastric emptying study 04/2021 showing 25% retention at 4 hours. She had severe GERD and gas dating back to 2017. The bowels aremoving only with miralax. She is trying to keep the bowels moving daily if possible. Patient is interested in learning more about EMPTIES Trial: no Patient is a candidate for EMPTIES Trial: No Gastrointestinal Symptoms Reflux/heartburn: Yes pantoprazole, carafate Abdominal pain/discomfort: Yes Weight loss: No Lost na lbs in na months Weight gain: No Gained na lbs in na months Do you have less than 3 bowel movements per week? No Diarrhea: No Constipation: Yes Malnutrition: No Gastroparesis Cardinal Symptom Index (CGSI) 1. Nausea: 3 2. Retchin 3. Vomitin 4. Stomach fullness: 5 5. Not able to finish a normal-sized meal: 0 6. Feeling excessively full after meals: 0 7. Loss of appetite: 0 8. Bloating (feeling like you need to loosen your clothes): 5 9. Stomach or belly visibly larger: 5 CGSI Score: 2.41 Scale (0-none; 1-very mild; 2-mild; 3-moderate; 4-severe; 5-very severe) MEDICATION HISTORY Promotility Drugs - Reglan (Metoclopramide): Yes - Gimoti (Metoclopramide nasal): No - Motilium (Domperidone): No - Erythromycin (E-mycin): No - Propulsid (Cisapride)_: No Other - Tricyclic Antidepressants (nortriptyline - Pamelor; amitriptyline - Elavil): No - Buspirone (Buspar): No - Mirtazapin (Remeron): No Anti-Nausea Medications - Compazine (Prochlorperazine): Yes - Phenergan (Promethazine): Yes - Benadryl (Diphenhydramine): Yes - Zofran (Ondansetron): No - Scopace (Scopolamine Patch): No - Granisetron (Kytril or Sancuso): No - Tigan (Trimethobenzamide)_: No Constipation Medications - Bulking Agents (Metamucil,Citrucel, Fibercon): Yes - Osmotic Laxatives (MOM, Polyethylene glycol (PEG), lactulose, sorbitol,MiraLax, Chronulal, Cephulac,Xylitol): Yes - Stimulant Laxatives (Ex-Lax, Senokot,Correctol, Dulcolax): Yes - Stool Softeners (Colace): Yes - Chloride Channel Activator (Amitiza): No - Linzess: No - Trulance: No - Motegrity: No Pain Medications - Does the patient see a aircraft painter apprentice for chronic abdominal pain?No - Is the patient taking narcotic pain medication for chronic abdominal pain? No - Narcotic Medications: (Tramadol, Fentanyl, codeine, hydrocodone, Hydromorphone, methadone, morphine, Oxycodone) No Drug use - History or current drug use (Marijuana, Cocaine, Heroine, etc...) No Eating Disorders - Does the patient have a history of eating disorders No If yes, please explain: na Psychiatric Disorders - Does the patient have a history of psychiatric disorders including PTSD: No If yes, please explain: na Nutrition - Has the patient met with a table keeper for diet recommendations with Gastroparesis? No - Jejunostomy (J-tube): _No - Gastrostomy (G-tube): No - Gastro-Jejunostomy (GJ-tube): _No - Nasojejunal (NJ-tube): _No - Nasogastric (NG-tube): _No - TPN (IV): _No - IV home hydration (IV): _No Medical Records - Has the patient had a smart capsule study completed? No - Does the patient have a history of any foregut surgery (vagotomy, hiatal hernia repair/MARIBELL Fundoplication, Heller Myotomy, gastrectomy, gastric bypass)?No If surgery, recent UGI? No - EGD: Yes - Botox Injections: No If yes was the Botox effective, and for how long: na Patient Name Sherry Ash Age [age] year old Gastroparesis Consult Test Date Completed Results Labs EGD 04/01/2020 [facility] Impression: - 2 cm hiatal hernia. - Normal stomach. - Normal examined duodenum. - The CAO pH capsule was deployed. - No specimens collected. XR ABd 02/27/2020 [facility] IMPRESSION: 1. 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 Small bowel distention may reflect ileus or partial obstruction. UGI w/small bowel 08/21/2019 [facility] Findings: The hypopharynx cervical and thoracic esophagus appear normal. There is no narrowing or obstruction. There is normal motility. There is a tiny hiatal hernia. Slight reflux was demonstrated. The stomach and duodenum appear normal. The stomach empties readily. There is no evidence of peptic ulcer disease or neoplasm. The proximal small bowel appears normal. Impression: Tiny hiatal hernia. Slight reflux. Gastric Emptying Study 05/06/2021 [facility] Findings: Gastric retention: 94% at 30 min; 82% at 1 hour; 75% at 2 hours, 57% at 3 hours, and 25% at 4 hours. Impression: Markedly delayed gastric emptying for solid phase of examination. CT Abd/Pelvis 04/12/2023 [facility] Impression: Chronic bilateral severe hydronephrosis. This has been seen and described on multiple prior studiesand is consistent with chronic bilateral UPJ stenosis. CT Abd/Pelvis 02/27/2020 [facility] IMPRESSION: Suggestion of moderate bilateral hydronephrosis, without visible stones and without visible ureter or bladder dilatation. AP supine abdominal x-ray suggested now to check for clearing/washout, exclude bilateral UPJ obstruction Small hiatal hernia Minor distention of the biliary tree may be physiologic after cholecystectomy in the absence of elevated bilirubin levels Diverticulosis Consults GI No past surgical history on file. No current outpatient medications on file. No current facility-administered medications for this visit. ALLERGIES Not on File No family history on file. GI SPECIFIC ROS Difficulty swallowing / foods sticking in throat: No Hoarseness: No Chronic cough: No Regurgitation: No Chest pain: No Recent change in bowel movements: No Bloody or black, bowel movements: No Loss of control of bowel movements: No Night sweats, fever, chills: No Thought or memory problems: No Fluid in abdomen (ascites): No Prominent leg swelling: No Vomiting blood: No REVIEW OF SYSTEMS GENERAL: No weight loss, malaise or fevers HEENT: Negative for frequent or significant headaches, No changes in hearing or vision, no nose bleeds or other nasal problems RESPIRATORY: Negative for cough, hemoptysis, wheezing, COPD, dyspnea or shortness of breath CARDIOVASCULAR: Negative for chest pain, leg swelling, hypertension, CHF or palpitations : No history of dysuria, frequency or incontinence 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 General appearance: well appearing, alert, in no acute distress, and well- hydrated, well nourished Skin: Skin color, texture, turgor normal, no suspicious rashes or lesions Head: normal Eyes: Anicteric sclera. Pupils are equally round and reactive to light. Extraocular movements are intact. Ears: external ears normal, canals clear, TM's normal Nose/Sinuses: Negative Oropharynx: Lips, mucosa, and tongue normal, teeth and gums normal, oropharynx normal Neck: Supple, no adenopathy; thyroid symmetric, normal size, no bruits Back: no pain to palpation over spine or costovertebral angles, reflexes are 2+ and symmetric, motor and sensory appear to be normal Lungs: lungs clear to auscultation no wheezing or rhonchi Heart: RRR without murmur, gallop, or rubs. No ectopy Abdomen: Normal abdominal exam, Abdomen soft, non-tender. Bowel sounds normal. No masses, organomegaly Extremities: Extremities normal. No deformities, edema, or skin discoloration. Good capillary refill. Musculoskeletal: Spine range of motion normal. Muscular strength intact Peripheral pulses: Normal Neuro: Negative findings: speech normal, mental status intact, cranial nerves 2- 12 intact Plan Given the risk of autoimmune gastrointestinal dysmotility (AGID) as a possible cause for this patient's symptoms, as well as the fact the patient has yet to be evaluated for AGID, a full workup will be undertaken. If the antibody tests reveal a positive result the patient will then need to be treated with IVIG therapy as this is the only known treatment available at this time for AGID. Encounter Diagnosis ICD-10-CM 1. Gastroparesis K31.84 CK CREATINE KINASE LD LACTATE DEHYDRO PYRUVATE+LACTATE BL AMINO ACIDS, PLASMA W/ CONSULTATION CARNITINE FREE/TOTAL, PLASMA ACETYLCHOLINE REC BINDING AB VOLTAGE GATED CA IGG VOLTAGE-GATED POTASSIUM AKBAR AB GLUTAMIC AC DECARBOXYLASE AB ORGANIC ACIDS UR, QUANT W/CONSULTATION IGA BLD IGG IGM C-REACTIVE PROTEIN (CRP) SED RATE WESTERGREN CYTOKINE PANEL 13, SERUM ESTROGEN FRACTION BL 2. Chronic idiopathic constipation K59.04 XR ABDOMEN 1V SUPINE Mihir Awan DO 08/11/2023 documented in this encounterWhite Hospital03-14-2024 Miscellaneous Notes* Telephone Encounter - Marcos Ramirez RN - 08/12/2023 2:21 PM EDT SPECIALTY CARE COORDINATION CHART REVIEW Contacted patient regarding upcoming appointment in the Gastroparesis Clinic. No answer. Message and call back number provided. Patient identified for Care Coordination from: gastroparesis diagnosis Last PCP office visit: Visit date not found Next OV: 08/16/2023 CHRONIC DX: Gastroparesis Records Reviewed records and summarized for upcoming appointment in the gastroparesis clinic. CARE COORDINATION OUTREACH PLAN: New patient call - awaiting call back. Marcos Ramirez RN August 12, 2023 documented in this encounterWhite Hospital11-13-2023 Progress note Author Ricky Singh [facility] April 12, 2023 10:54am Note Date/Time April 12, 2023 9:35am [place] [address] Emergency Department Note Signed Patient Name: Sherry Ash [facility] Record #: [id number] Date of : 1945 Age/Sex: 77 / F Location: ED Attending physician: HPI - General Adult General Date of Visit: 04/12/23 Chief complaint: Nausea/Vomiting/Diarrhea Time Seen by Provider: 04/12/23 09:22 History of Present Illness HPI narrative: The patient is a 77 year old F who presented to the Emergency Department with the complaint of early abdominal pain that started yesterday. Patient also has what she describes as headache occasionally and upper airway congestion but she states her main complaint today is her upper abdomen pain. She states that she has been taking her stomach pills without improvement. Noted no vomiting no diarrhea. States that she has had a appendectomy and a hysterectomy many years ago.. She states that she has had episodes similar to this in the past but was not able to find out why she had these. She states that she has never heard the term irritable bowel or diverticulitis. Home Meds and Allergies Home Medications Medication Instructions Recorded Confirmed cholecalciferol (vitamin D3) 50 50 mcg PO DAILY 12/26/20 04/12/23 mcg (2,000 unit) capsule loratadine 10 mg tablet 10 mg PO DAILY 08/24/22 04/12/23 pantoprazole 40 mg tablet,delayed 40 mg PO BID 04/12/23 04/12/23 release sertraline 100 mg tablet 100 mg PO DAILY 04/12/23 04/12/23 Previous Rx's Medication Instructions Recorded fluticasone propionate 50 1 spray Nostril-both DAILY #32 02/04/22 mcg/actuation nasal grams spray,suspension rosuvastatin 40 mg tablet 40 mg PO DAILY #90 tabs 11/03/22 metoclopramide HCl 5 mg tablet 5 mg PO TID PRN nausea and 02/24/23 (Reglan) vomiting 30 days #60 tabs alprazolam 0.5 mg tablet 0.5 mg PO BID PRN anxiety 30 days 03/24/23 #60 tabs sulfamethoxazole 400 2 tab PO Q12H 7 days #28 tabs 04/12/23 mg-trimethoprim 80 mg tablet (Bactrim) Allergies Allergy/AdvReac Type Severity Reaction Status Date / Time oxycodone Allergy Severe Headache Verified 02/23/23 15:25 Iodinated Contrast Media Allergy Mild headache, Verified 02/23/23 15:25 burning skin Penicillins Allergy Mild Rash Verified 02/23/23 15:25 Quinolones Allergy Mild Rash Verified 02/23/23 15:25 moxifloxacin Allergy Unknown Unknown Verified 02/23/23 15:25 doxycycline AdvReac Intermediate TEARS UP Verified 02/23/23 15:25 STOMACH- CAUSES ALOT OF PAIN hydrocodone AdvReac Intermediate vomiting, Verified 09/26/23 15:25 headache nitrofurantoin AdvReac Intermediate Vomiting Verified 02/23/23 15:25 [From Macrobid] albuterol AdvReac Mild HEADACHE,NA Verified 02/23/23 15:25 USEA bee venom protein (honey bee) AdvReac Mild swelling, Verified 02/23/23 15:25 vomiting calcium AdvReac Mild GI upset Verified 02/23/23 15:25 fluconazole AdvReac Mild Headache Verified 02/23/23 15:25 Review of Systems Status of ROS: Reports: 10 or more systems reviewed and unremarkable except asnoted in History and below Narrative: See above History PFSH Medical History Abnormal mammogram Adult hypothyroidism Anxiety Aortic heart murmur Back pain Bilateral tinnitus Breast cancer screening by mammogram Bronchitis Cataracts, bilateral Chronic pain of left ankle Congenital ureteropelvic junction obstruction Constipation Dyslipidemia Fracture of left ankle Gastritis GERD (gastroesophageal reflux disease) Granulomatous disease Heart murmur High cholesterol HTN (hypertension), benign Hydronephrosis Mitral regurgitation Nonspecific ST-T wave electrocardiographic changes Osteoporosis Pancreatitis Pneumonia Seasonal allergies UPJ (ureteropelvic junction) obstruction Surgical History H/O bladder repair surgery History of appendectomy Hx of cataract surgery Hx of cholecystectomy Hx of hysterectomy Family History Father No problems noted. Mother No problems noted. Social History History Provided by: Patient Preferred Language: Sammarinese Language Assistance Offered: Not Applicable Usual Living Arrangement: Alone Smoking Status: Former Smoker Years Smoked: 38 Packs Per Day: 1 Other Form of Tobacco Used: Never Used Second Hand Tobacco Smoke Exposure: No How Often do you Have a Drink Containing Alcohol: Never How Many Standard Drinks Containing Alcohol do you Have on a Typical Day: None How Often do you Have Six or More Drinks on One Occasion: Never AUDIT-C Alcohol Total Score: 0 Non-Prescribed Substance Use: Denies Use Has Patient Ever Been Admitted to Treatment Facility for Alcohol/Drug Abuse: No History of Physical Abuse: No History of Emotional Abuse: No History of Sexual Abuse: No Suspect/Identified Abuse: No Provider Notified of Abuse or Suspected Abuse: No Physical Exam Narrative: Vital signs, click to edit/add: Vital Signs - 24 hr 04/12/23 09:20 Temperature 98.1 F Pulse Rate [Right Brachial] 72 Respiratory Rate 16 Blood Pressure [Ri ght Arm] 91/55 L Pulse Oximetry 96 Oxygen Delivery Me thod Room Air Anxious appearing female in no apparent distress The head is atraumatic, normocephalic, the ears, nose and throat are all withoutobvious masses, lesions or deformity The neck is supple, the trachea midline, no adenopathy, no meningeal signs The chest is symmetrical and nontender The back is symmetrical and nontender Cardiac normal S1 S2 with a regular rate and rhythm no murmurs gallops or rubs Pulmonary is clear to auscultation bilaterally The abdomen is soft, diffusely tender in all 4 quadrants nondistended with normal active bowel sounds The extremities are warm and dry with good pulses, motor and sensation throughout The skin is without rashes or lesions Neurologic, GCS is 15 with no focal deficits appreciated Medical Decision Making MDM Narrative Medical decision making narrative: Nonlocalizing abdominal pain we will do a CT scan and check labs to be sure there is no significant findings. Lab Data Lab results reviewed: Yes I reviewed the patient's lab results. Abnormal Labs: Abnormal Labs 04/12/23 04/12/23 09:44 10:00 RBC 3.64 L Hgb 10.5 L Hct 31.3 L Neut % (Auto) 79 H Lymph % (Auto) 13 L Baso # (Auto) 0.0 L Carbon Dioxide 20 L Random Glucose 174 H Troponin I < 0.010 L Urine Protein 30 (1+) A Urine Occult Blood Trace-intact A Urine Nitrite Positive A Prot Sulfosalicylic Acd 1+ A Ur Leukocyte Esterase Small (1+) A Labs: Lab Results 04/12/23 04/12/23 Range/Units 09:44 10:00 WBC 4.6 (3.2-9.3) 10'3/uL RBC 3.64 L (3.85-4.88) 10'6/uL Hgb 10.5 L (11.7-14.9) g/dL Hct 31.3 L (34.6-44.1) % MCV 86.0 (83.0-97.4) fL MCH 28.8 (27.8-33.2) pg MCHC 33.5 (32.7-34.8) g/dL RDW 13.9 (12.2-15.8) % Plt Count 157 (122-359) 10'3/uL MPV 9.4 (7.6-10.6) fL Neut % (Auto) 79 H (41-72) % Lymph % (Auto) 13 L (20-35) % [place] % (Auto) 5 (4-12) % Eos % (Auto) 2 (2-5) % Baso % (Auto) 1 (0-1) % Lymph # (Auto) 0.6 (0.5-3.5) 10'3/uL [place] # (Auto) 0.2 (0.2-0.8) 10'3/uL Eos # (Auto) 0.1 (0.0-0.4) 10'3/uL Baso # (Auto) 0.0 L (0.1-0.2) 10'3/uL Absolute Neutrophils 3.6 (1.5-5.6) 10'3/uL Sodium 137 (136-145) mmol/L Potassium 3.8 (3.5-5.1) mmol/L Chloride 105 (98-107) mmol/L Carbon Dioxide 20 L (23-31) mmol/L Anion Gap 12 (5-13) mEq/L BUN 17 (7-18) mg/dL Creatinine 0.95 (0.57-1.11) mg/dL GFR Calculation 60 (mL/min/1.73m2) Random Glucose 174 H (70-100) mg/dL Calcium 9.0 (8.4-10.2) mg/dL Total Bilirubin 0.7 (0.0-1.0) mg/dL AST 17 (5-34) U/L ALT 11 (0-55) U/L Alkaline Phosphatase 62 (40-150) U/L Total Creatine Kinase 73 (29-168) U/L CK-MB (CK-2) 1.1 (1.0-3.6) ng/mL Troponin I < 0.010 L (0.010-0.045) ng/mL Total Protein 6.7 (6.4-8.2) g/dL Albumin 4.0 (3.2-4.6) g/dL Lipase 29 (8-78) U/L Urine Color Yellow (YELLOW) Urine Appearance Cloudy (CLEAR) Urine pH 6.0 (5.5-8.0) Ur Specific [place] 1.020 (1.005-1.030) Urine Protein 30 (1+) A (Negative) mg/dL Urine Glucose (UA) Negative (Negative) mg/dL Urine Ketones Negative (Negative) mg/dL Urine Occult Blood Trace-intact A (Negative) Urine Nitrite Positive A (Negative) Urine Bilirubin Negative (Negative) Prot Sulfosalicylic Acd 1+ A (Negative) Urine Urobilinogen 1.0 (0.2-1.0) EU/dL Ur Leukocyte Esterase Small (1+) A (Negative) Ur Microscopic Not Reportable Urine RBC 0-2 /hpf Urine WBC 21-50 /hpf Ur Squamous Epith Cells 3-5 /lpf Urine Bacteria 4+ /hpf 04/12/23 10:00 Urine Culture - Pending Urine,Clean Catch Imaging Data Radiologist's impression: Bilateral hydronephrosis no acute findings Procedures Procedural Sedation Performed Procedural Sedation Performed: No Course Course Medication Administered: Active Medications Generic Name Dose Route Start Last Admin Trade Name Freq PRN Reason Stop Dose Admin Sodium Chloride 9 ml 04/12/23 09:30 Sodium Chloride 0.9% Flush 3 Ml Syringe IVPUSH 05/12/23 09:29 PRN PRN FLUSH Sodium Chloride 250 ml 04/12/23 09:30 0.9 % Sodium Chloride - 250 Ml Flush Bag IV 05/12/23 09:29 ONCE PRN FLUSH Discontinued Medications Generic Name Dose Route Start Last Admin Trade Name Freq PRN Reason Stop Dose Admin Sodium Chloride 1,000 mls @ 999 mls/hr 04/12/23 09:30 04/12/23 09:48 Sodium Chloride 0.9% 1l Bag IV 04/12/23 10:30 999 mls/hr ONCE ONE Administration Vital Signs Vital signs: Vital Signs 04/12/23 09:20 Temperature 98.1 F Pulse Rate [Right Brachial] 72 Respiratory Rate 16 Blood Pressure [Right Arm] 91/55 L Pulse Oximetry 96 Oxygen Delivery Method Room Air Discharge Plan Discharge (Provider) Patient Disposition: Home, Self-Care Clinical Impression: Recurrent UTI, Hydronephrosis Condition: Stable Additional Instructions: Increase fluids and take the antibiotic as prescribed. Referrals: Nicole Garcia DO [Primary Care Provider] - 2-3 Days (Follow-up with Dr. Hurtado if not improving as well.) Home Meds & Prescriptions: New sulfamethoxazole-trimethoprim [Bactrim] 400-80 mg tablet 2 tab PO Q12H 7 Days Qty: 28 0RF No Action fluticasone propionate 50 mcg/actuation spray,suspension 1 spray Nostril-both DAILY Qty: 32 3RF cholecalciferol (vitamin D3) 50 mcg (2,000 unit) capsule 50 mcg PO DAILY rosuvastatin 40 mg tablet 40 mg PO DAILY Qty: 90 4RF metoclopramide HCl [Reglan] 5 mg tablet 5 mg PO TID PRN (Reason: nausea and vomiting) 30 Days Qty: 60 1RF Rx Instructions: use as sparingly as possible, just as needed alprazolam 0.5 mg tablet 0.5 mg PO BID PRN (Reason: anxiety) 30 Days Qty: 60 0RF loratadine 10 mg Tablet 10 mg PO DAILY sertraline 100 mg tablet 100 mg PO DAILY Patient Comments: [NO ORIGINAL SIG] pantoprazole 40 mg tablet,delayed release (DR/EC) 40 mg PO BID ` Dictated By: Ricky Singh MD 04/12/23 0932 Signed By: <Electronically signed by Ricky Singh MD> 04/12/23 1054 Cosigned By (if applicable): [id number] cc: [facility] Work Phone: [phone] Evaluation note* Author Myrna Alvarenga [facility] Authored November 13, 2021 4:14 pm Labs have been ordered. I wo uld like patient to follow-up in approximately 2 months with her new care provider in the office. She has elected to start seeing Dr. aBez. Refill of Xanax given today. [facility] Work Phone: Evaluation note* Diagnosis Onset Date Resolution Status Atrophic vaginitis noneactiv e Lower back pain noneactive Lower abdominal pain noneact melia Osteoporosis acute Postmenopausal acute Diverticulosis acute Gastroparesis acute Hiatal hernia acute Hypothyroidism acute GERD (gastroesophageal reflux disease) chronic [facility] Work Phone: Evaluation note* Diagnosis Onset Date Resolution Status Osteoporosis acute Postmenopausal acute Diverticulosis acute Gastroparesis acute Hiatal hernia acute Hypothyroidism acute GERD (gastroesophageal reflux disease) chronic [facility] Work Phone: Evaluation note* Diagnosis Onset Date Resolution Status Osteoporosis acute Postmenopausal acute Diverticulosis acute Gastroparesis acute Hiatal hernia acute Hypothyroidism acute GERD (gastroesophageal reflux disease) chronic Chronic pain of left ankle a cute Memory change acute Anxiety chronic [facility] ethology [facility] Work Phone: Evaluation note* Diagnosis Onset Date Resolution Status Diverticulosis acute Gastroparesis acute Hiatal hernia acute Hypothyroidism acute GERD (gastroesophageal reflux disease) chronic Chronic pain of left ankle a cute Memory change acute Anxiety chronic [facility] Work Phone: Evaluation note* Diagnosis Onset Date Resolution Status Diverticulosis acute Gastroparesis acute Hiatal hernia acute Hypothyroidism acute GERD (gastroesophageal reflux disease) chronic Chronic pain of left ankle a cute Memory change acute Anxiety chronic Memory change acute Anxiety chronic [facility] ethology [facility] Work Phone: Evaluation note* Diagnosis Onset Date Resolution Status Chronic pain of left ankle a cute Memory change acute Anxiety chronic Memory change acute Anxiety chronic GERD (gastroesophageal reflux disease) chronic [facility] ethology [facility] Work Phone: Evaluation note* Diagnosis Onset Date Resolution Status Chronic pain of left ankle a cute Memory change acute Anxiety chronic Memory change acute Anxiety chronic GERD (gastroesophageal reflux disease) chronic Breast cancer screening by mammogram acute Dark stools acute Gastroparesis acute GERD (gastroesophageal reflux disease) chronic [facility] ethology [facility] Work Phone: Evaluation note* Diagnosis Onset Date Resolution Status GERD (gastroesophageal reflux disease) chronic Breast cancer screening by mammogram acute Dark stools acute Gastroparesis acute GERD (gastroesophageal reflux disease) chronic Dysuria noneactive Osteoporosis acute Postmenopausal acute [facility] Work Phone: Evaluation note* Diagnosis Onset Date Resolution Status GERD (gastroesophageal reflux disease) chronic Breast cancer screening by mammogram acute Dark stools acute Gastroparesis acute GERD (gastroesophageal reflux disease) chronic Dysuria noneactive Osteoporosis acute Postmenopausal acute Gastroparesis acute [facility] ethology [facility] Work Phone: Evaluation note* Diagnosis Onset Date Resolution Status GERD (gastroesophageal reflux disease) chronic Breast cancer screening by mammogram acute Gastroparesis acute GERD (gastroesophageal reflux disease) chronic Dark stools resolved Dysuria noneactive Osteoporosis acute Postmenopausal acute Gastroparesis acute Gastroparesis acute Hypothyroidism acute Anxiety chronic [facility] Work Phone: Evaluation note* Diagnosis Onset Date Resolution Status Breast cancer screening by mammogram acute Gastroparesis acute GERD (gastroesophageal reflux disease) chronic Dark stools resolved Dysuria noneactive Osteoporosis acute Postmenopausal acute Gastroparesis acute Gastroparesis acute Hypothyroidism acute Anxiety chronic Encounter for screening for diabetes mellitus acute Granulomatous disease acute Hydronephrosis acute Urinary tract infection acut e [facility] Work Phone: Evaluation note* Diagnosis Onset Date Resolution Status Osteoporosis acute Postmenopausal acute Gastroparesis acute Gastroparesis acute Hypothyroidism acute Anxiety chronic Encounter for screening for diabetes mellitus acute Granulomatous disease acute Hydronephrosis acute Urinary tract infection acut e Congenital ureteropelvic junction obstruction acute Urinary tract infection acut e Dysuria acute Gastroparesis acute [facility] Work Phone: Evaluation note* Diagnosis Onset Date Resolution Status Encounter for screening for diabetes mellitus acute Granulomatous disease acute Hydronephrosis acute Urinary tract infection acut e Congenital ureteropelvic junction obstruction acute Urinary tract infection acut e Dysuria acute Gastroparesis acute Acute sinusitis noneactive Bronchitis noneactive Dysuria acute [facility] Work Phone: Evaluation note* Diagnosis Onset Date Resolution Status Dysuria acute Gastroparesis acute Acute sinusitis noneactive Bronchitis noneactive Dysuria acute Episcleritis acute Low back pain acute Recurrent UTI acute [facility] Work Phone: Evaluation note* Diagnosis Onset Date Resolution Status Acute sinusitis noneactive Bronchitis noneactive Dysuria acute Episcleritis acute Low back pain acute Recurrent UTI acute [facility] Work Phone: Evaluation note* Diagnosis Onset Date Resolution Status Acute sinusitis noneactive Bronchitis noneactive Episcleritis acute Low back pain chronic Recurrent UTI chronic Dysuria resolved Urinary frequency noneactive Normocytic anemia acute Anxiety chronic Congenital ureteropelvic junction obstruction chronic Hypothyroidism chronic Recurrent UTI chronic [facility] Work Phone: Evaluation note* Diagnosis Onset Date Resolution Status Episcleritis acute Low back pain chronic Recurrent UTI chronic Dysuria resolved Urinary frequency noneactive Normocytic anemia acute Anxiety chronic Congenital ureteropelvic junction obstruction chronic Hypothyroidism chronic Recurrent UTI chronic Abnormal renal function acut e Allergic conjunctivitis acut e Anxiety chronic 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 Gastroparesis chronic Hydronephrosis chronic [facility] ethology [facility] Work Phone: Evaluation note* Diagnosis Onset Date Resolution Status Episcleritis acute Low back pain chronic Recurrent UTI chronic Dysuria resolved Urinary frequency noneactive Normocytic anemia acute Anxiety chronic Congenital ureteropelvic junction obstruction chronic Hypothyroidism chronic Recurrent UTI chronic Abnormal renal function acut e Allergic conjunctivitis acut e Anxiety chronic 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 Gastroparesis chronic Hydronephrosis chronic Anxiety chronic [facility] ethology [facility] Work Phone: Evaluation note* Diagnosis Onset Date Resolution Status Urinary frequency noneactive Normocytic anemia acute Anxiety chronic Congenital ureteropelvic junction obstruction chronic Hypothyroidism chronic Recurrent UTI chronic Abnormal renal function acut e Allergic conjunctivitis acut e Anxiety chronic 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 Gastroparesis chronic Hydronephrosis chronic Anxiety chronic Postmenopausal acute Osteoporosis chronic [facility] ethology [facility] Work Phone: Evaluation note* Diagnosis Onset Date Resolution Status Abnormal renal function acut e Allergic conjunctivitis acut e Anxiety chronic 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 Gastroparesis chronic Hydronephrosis chronic Anxiety chronic Postmenopausal acute Osteoporosis [facility] Work Phone: Evaluation note* Diagnosis Onset Date Resolution Status Dry eyes, bilateral acute MDD (major depressive disord er), recurrent severe, without psychosis acute Anxiety chronic Gastroparesis chronic GERD (gastroesophageal reflux disease) chronic Diffuse abdominal pain nonea ctive [facility] Work Phone: Evaluation note* Diagnosis Onset Date Resolution Status Dry eyes, bilateral acute MDD (major depressive disord er), recurrent severe, without psychosis acute Anxiety chronic Gastroparesis chronic GERD (gastroesophageal reflux disease) chronic Diffuse abdominal pain nonea ctive Dysuria noneactive Constipation noneactive [facility] ethology [facility] Work Phone: Evaluation note* Diagnosis Onset Date Resolution Status Dysuria noneactive Constipation noneactive UTI (urinary tract infection) noneactive [facility] Work Phone: Evaluation note* Diagnosis Onset Date Resolution Status Dysuria noneactive Constipation noneactive Anxiety chronic Gastroparesis chronic UTI (urinary tract infection) noneactive [facility] Work Phone: [phone]-aluation note* Diagnosis Gastroparesis- Primary documented in this encounter [facility] note* Diagnosis Gastroparesis- Primary Chronic idiopathic constipation Unspecified constipation Irritable bowel syndrome with constipation Irritable bowel syndrome documented in this encounter [facility] note* Diagnosis Gastroparesis- Primary Chronic idiopathic constipation Unspecified constipation documented in this encounter [facility] note* Diagnosis Chronic idiopathic constipation Unspecified constipation documented in this encounter [facility] note* Diagnosis Gastroparesis- Primary documented in this encounter [facility] note* Diagnosis Onset Date Resolution Status Dysuria noneactive Constipation noneactive Anxiety chronic Gastroparesis chronic UTI (urinary tract infection) noneactive Postmenopausal acute Osteoporosis chronic [facility] [email or web address] Work Phone: [phone]-aluation note* Diagnosis Onset Date Resolution Status Dysuria noneactive Constipation noneactive Anxiety chronic Gastroparesis chronic UTI (urinary tract infection) noneactive Postmenopausal acute Osteoporosis chronic Yeast infection involving th e vagina and surrounding area noneactive [employer] Work Phone: [phone]-aluation note* Diagnosis Onset Date Resolution Status Dysuria noneactive Constipation noneactive Anxiety chronic Gastroparesis chronic UTI (urinary tract infection) noneactive Postmenopausal acute Osteoporosis chronic Acute vaginitis noneactive Yeast infection involving th e vagina and surrounding area noneactive Bloating noneactive Constipation noneactive [facility] Work Phone: Evaluation note* Diagnosis Onset Date Resolution Status Postmenopausal acute Osteoporosis chronic Acute vaginitis noneactive Yeast infection involving th e vagina and surrounding area noneactive Bloating noneactive Constipation noneactive [employer] Work Phone: Evaluation note* Diagnosis Onset Date Resolution Status Acute vaginitis noneactive Yeast infection involving th e vagina and surrounding area noneactive Bloating noneactive Constipation noneactive Chronic idiopathic constipation acute MDD (major depressive disord er), recurrent severe, without psychosis acute Anxiety chronic Yeast dermatitis noneactive [employer] Work Phone: Evaluation note* Diagnosis Onset Date Resolution Status Acute vaginitis noneactive Yeast infection involving th e vagina and surrounding area noneactive Bloating noneactive Constipation noneactive Chronic idiopathic constipation acute MDD (major depressive disord er), recurrent severe, without psychosis acute Anxiety chronic Yeast dermatitis noneactive Chronic right-sided low back pain with right-sided sciatica acute UTI (urinary tract infection) noneactive Vulvovaginitis due to yeast noneactive [facility] Work Phone: Evaluation noteNo assessment information available [facility] Work Phone: Hospital Discharge instructions Additional Instructions Please call Dr. Hurtado and advise you were seen in the emergency room and told to call to schedule a follow-up appointment. Also notify Dr. Brunner's office that you are in the emergency room and diagnosed with urinary tract infection. The Keflex is twice daily for 1 week. If your symptoms worsen or new concerns develop [facility] Discharge instructions Additional Instructions Increase fluids and take the antibiotic as prescribed.[facility] Work Phone: Hospital Discharge instructions Additional Instructions We evaluated you for your symptoms. We found you have a urinary tract infection. Please take your antibiotics as prescribed. Please follow close with your primary care doctor. Please return to the emergency department if you develop any worsening or concerning symptoms.[facility] Work Phone: Progress note Author Andra Campbell [facility] Medical Care, [facility] June 11, 2022 10:18am Note Date/Time June 11, 2022 1 0:13am [facility] Medical Group [address] [place] [id number] Office Visit Report Signed Patient Name: Sherry Ash [facility] Rec ord #: [id number] Date of : 1945 Account #: [id number] Age/Sex: 76 / F Date of Servi ce: 06/11/22 Location: [facility] Cardiology Attending physician: Andra Campbell DO Intake Vital Signs 06/11/22 10:10 Height 5 ft 2 in Weight 69.003 kg BMI 27.8 BP 98/55 L BP Location Right Brachial BP Position Sitting BP Cuff Size Adult BP Source Automatic Cuff Pulse 63 Pulse Source Monitor Intake Visit Reasons: 6 month f/u Prick Stitcher Required: No Accompanied by: Self / Same As Patient Allergies Allergy/AdvReac Type Severity Reaction Status Date / Time oxycodone Allergy Severe Headache Verified 05/27/22 17:51 Iodinated Contrast Media Allergy Mild headache, Verified 05/27/22 17:51 burning skin Penicillins Allergy Mild Rash Verified 05/27/22 17:51 Quinolones Allergy Mild Rash Verified 05/27/22 17:51 moxifloxacin Allergy Unknown Unknown Verified 05/27/22 17:51 doxycycline AdvReac Intermediate TEARS UP Verified 05/27/22 17:51 STOMACH- CAUSES ALOT OF PAIN hydrocodone AdvReac Intermediate vomiting, Verified 05/27/22 17:51 headache albuterol AdvReac Mild HEADACHE,NA Verified 05/27/22 17:51 USEA bee venom protein (honey bee) AdvReac Mild swelling, Verified 05/27/22 17:51 vomiting calcium AdvReac Mild GI upset Verified 05/27/22 17:51 fluconazole AdvReac Mild Headache Verified 05/27/22 17:51 Current Medication List - Last Reconciled 06/11/22 by Jaida Guevara alprazolam 0.25 mg tablet 0.25 mg PO BID PRN 30 days ascorbic acid (vitamin C) 500 mg tablet (Vitamin C) 500 mg PO DAILY buspirone 10 mg tablet 10 mg PO DAILY cholecalciferol (vitamin D3) 50 mcg (2,000 unit) capsule 50 mcg PO DAILY diclofenac sodium 1 % topical gel (Voltaren Arthritis Pain) 4 grams topical QID fluticasone propionate 50 mcg/actuation nasal spray,suspension 1 spray Nostril-both DAILY Lactobacillus 40-Bifidobact 3-S.thermophilus 100 billion cell capsule (Probiotic) 1 cap PO DAILY multivitamin 1 tab PO DAILY pantoprazole 40 mg tablet,delayed release 40 mg PO BID rosuvastatin 40 mg tablet 40 mg PO DAILY sertraline 100 mg tablet 100 mg PO DAILY sucralfate 1 gram tablet 1 GM PO BID Is patient having pain: No Do you need a note to return to daycare/school/sports/work: No Nurse's Note: Patient here for 6 month f/u No CP, dizziness, heart palpitations No tobacco use PFSH PFSH Medical History Adult hypothyroidism Anxiety Aortic heart murmur Back pain Breast cancer screening by mammogram Bronchitis Cataracts, bilateral Constipation Dyslipidemia Fracture of left ankle Gastritis GERD (gastroesophageal reflux disease) Heart murmur High cholesterol HTN (hypertension), benign Mitral regurgitation Osteoporosis Pancreatitis Pneumonia Seasonal allergies UPJ (ureteropelvic junction) obstruction Surgical History H/O bladder repair surgery History of appendectomy Hx of cholecystectomy Hx of hysterectomy Family History Father No problems noted. Mother No problems noted. Social History Social History History Provided by: Patient Living Situation History Usual Living Arrangement: Alone Tobacco History Smoking Status: Former Smoker (stopped 1997) Years Smoked: 38 Packs Per Day: 1 Second Hand Tobacco Smoke Exposure: No AUDIT-C How Often do you Have a Drink Containing Alcohol: Never How Many Standard Drinks Containing Alcohol do you Have on a Typical Day: None How Often do you Have Six or More Drinks on One Occasion: Never AUDIT-C Alcohol Total Score: 0 Substance Use History Caffeine Use: Yes Non-Prescribed Substance Use: Denies Use Abuse History of Physical Abuse: No History of Emotional Abuse: No History of Sexual Abuse: No Suspect/Identified Abuse: No Provider Notified of Abuse or Suspected Abuse: No HPI HPI Comments History of Present Illness Details 6m f/u, patient has been tired, hands swollen but she has been working outside a lot Good functional capacity with no change in functional capacity. No chest pain, no dyspnea, no syncope, pre-syncope, PND, nor palpitations. Review of Systems Status of ROS Reports: 10 or more systems reviewed and unremarkable except as noted in Historyand below Constitutional Reports: other (No fever, sweats, malaise, fatigue) Eyes Reports: other (PERRLA, EOMI) Ears, Nose, Mouth, Throat Reports: other (No tinnitis, no vertigo) Cardiovascular Reports: other (As per HPI) Respiratory Reports: other (As per HPI) Gastrointestinal Reports: other (No abdominal pain or tenderness) Musculoskeletal Reports: other (No muscle weakness or lack of sensation) Integumentary/Breast Reports: other (No rashes or itching) Neurological Reports: other (No focal deficits) Psychiatric Reports: other (No psychatric complaints) Endocrine Reports: other (No changes in cold or heat tolerance, excessive thirst, or change in libido) Hematologic/Lymphatic Reports: other (No bruising or bleeding) Allergic/Immunologic Reports: other (No hives, rashes, allergies) Physical Exam Constitutional Common normals: no acute distress, patient oriented x3, healthy appearing, alertand well nourished HENT Common normals: normocephalic, Normal oral and palatal mucosa present and oropharynx normal Head and scalp: normal to inspection and normocephalic Face and sinus: normal facial exam Mouth: Normal oral and palatal mucosa present Eye Common normals: Equal, round and reactive pupils present, EOMs intact bilaterally and conjunctivae normal Conjunctiva: conjunctivae normal Pupil: Equal, round and reactive pupils present Neck & C-Spine Common normals: full ROM, no lymphadenopathy, supple, soft and no JVD Lymph Lymphatic: no lymphadenopathy noted and no lymphedema noted Chest Common normals: normal inspection of the chest and normal palpation of entire chest wall Respiratory Common normals: normal respiratory effort, No retractions, No use of accessory muscles, clear to auscultation bilaterally and Good bilateral breath sounds Auscultation: clear to auscultation bilaterally Cardio Common normals: no JVD, regular rate, regular rhythm, S1 normal heart sound present, S2 normal heart sound present, No gallops present (Cardio), No clicks present (Cardio) and No murmurs present (Cardio) Rate: regular rate Rhythm: regular rhythm Heart sounds: S1 normal heart sound present and S2 normal heart sound present GI Common normals: Normal to inspection, nondistended, normoactive bowel sounds present, Soft to palpation, non-tender, No hepatosplenomegaly present, no massesand no bruits Palpation: Soft to palpation and No hepatosplenomegaly present Common normals: no CVA tenderness Bladder/kidney exam: no CVA tenderness Back & Pelvis Common normals: no CVA tenderness, thoracic and lumbar spine normal to inspection and no thoracic nor lumbar tenderness Extremity Common normals: normal to inspection, no numbness or tingling and capillary refill normal Neuro Common normals: alert, patient oriented x3, moves all extremities and no focal motor deficits Sensorium/orientation: Yes alert Psych Common normals: mental status grossly normal, Normal thought process present, cooperative, normal affect and speech normal Speech: Yes normal speech Thought process: Normal thought process present Skin Common normals: no rashes or lesions noted and turgor normal General skin exam: no rashes or lesions noted and turgor normal Rashes: no rashes Assessment and Plan Plan Detail Assessment: AV SCLEROSIS- stable. Keep LDL < 70. Last LDL 79 and acceptable at this time. SOB from recent PNA in Mar 2021- improving, still mild SOB MILD MR- stable, chronic HLP- stable, chronic HTN- well controlled, stable, chronic Stable benign lung nodules on CT chest- follows with pcp and pulm. stable, chronic Excellent functional capacity- exercises 3x/week with bikes, treadmills, weights. Cont to do this. Slight discrepancy between left arm and right arm BP. Right arm 15-20 points lower. Offered CTA chest to rule out subclavian stenosis, declined. Will not change current management. Has no parathesia or weakness in left arm. Dictated By: Andra Campbell DO 06/11/22 1010 Signed By: <Electronically signed by Andra Campbell DO> 06/11/22 1018 Cosigned By (if applicable): [id number] cc: DO Nathanael Wheeler DO [facility] [email or web address] Work Phone: Progress note Author Ricky Singh [facility] August 24, 2022 3:59pm Note Date/Time August 24, 2022 3:5 9pm [facility] [address] [place] [id number] Emergency Department Note Signed Patient Name: Sherry Ash [facility] Record #: [id number] Date of : 1945 Age/Sex: 76 / F Location: ED Attending physician: SEO ASSISTANT/PA Attestation [facility] Narrative Date of Visit: 08/24/22 Chief Complaint: Abdominal Pain Medical decision making narrative: I performed a history and physical examination of the patient and discussed management with the SEO ASSISTANT/PA. I reviewed the SEO ASSISTANT/PA's note and agree with the documented findings and plan of care. Any areas of disagreement are noted on thechart. I was personally present for the martins portions of any procedures. I have documented in the chart those procedures where I was not present during the martins portions. I have reviewed the emergency nurses triage note. I agree with the chief complaint, past medical history, past surgical history, allergies, medications, social and family history as documented unless otherwise noted below. Documentation of the HPI, Physical Exam and Medical Decision Making performed by the SEO ASSISTANT/PA is based on my personal performance of the HPI, PE and MDM. For SEO ASSISTANT/PA cases/ documentation I have personally evaluated this patient andhave completed at least one if not all martins elements of the E/M (history, physical exam, and MDM). Additional findings are as noted:: We spoke with Dr. Hurtado concerning the hydronephrosis on the left and patient does not appear to be symptomatic. I did discuss the findings with her she feels comfortable with discharge at this time. Lab Data Lab results reviewed: Yes I reviewed the patient's lab results. Abnormal Labs: Abnormal Labs 08/24/22 08/24/22 08/24/22 14:15 14:15 14:58 RBC 3.68 L Hgb 10.5 L Hct 31.7 L Neut % (Auto) 78 H Lymph % (Auto) 12 L Eos % (Auto) 0 L [place] # (Auto) 0.9 H Baso # (Auto) 0.0 L Absolute Neutrophils 6.6 H Carbon Dioxide 20 L Random Glucose 102 H Urine Protein 30 (1+) A Urine Occult Blood Trace-intact A Urine Nitrite Positive A Ur Leukocyte Esterase Moderate (2+) A Labs: Lab Results 08/24/22 08/24/22 08/24/22 Range/Units 14:15 14:15 14:58 WBC 8.5 (3.2-9.3) 10'3/uL RBC 3.68 L (3.85-4.88) 10'6/uL Hgb 10.5 L (11.7-14.9) g/dL Hct 31.7 L (34.6-44.1) % MCV 86.1 (83.0-97.4) fL MCH 28.5 (27.8-33.2) pg MCHC 33.1 (32.7-34.8) g/dL RDW 14.1 (12.2-15.8) % Plt Count 162 (122-359) 10'3/uL MPV 9.5 (7.6-10.6) fL Neut % (Auto) 78 H (41-72) % Lymph % (Auto) 12 L (20-35) % [place] % (Auto) 11 (4-12) % Eos % (Auto) 0 L (2-5) % Baso % (Auto) 0 (0-1) % Lymph # (Auto) 1.0 (0.5-3.5) 10'3/uL [place] # (Auto) 0.9 H (0.2-0.8) 10'3/uL Eos # (Auto) 0.0 (0.0-0.4) 10'3/uL Baso # (Auto) 0.0 L (0.1-0.2) 10'3/uL Absolute Neutrophils 6.6 H (1.5-5.6) 10'3/uL Sodium 137 (136-145) mmol/L Potassium 3.7 (3.5-5.1) mmol/L Chloride 105 (98-107) mmol/L Carbon Dioxide 20 L (23-31) mmol/L Anion Gap 12 (5-13) mEq/L BUN 12 (7-18) mg/dL Creatinine 0.84 (0.57-1.11) mg/dL GFR Calculation >60 (mL/min/1.73m2) Random Glucose 102 H (70-100) mg/dL Calcium 9.0 (8.4-10.2) mg/dL Total Bilirubin 0.8 (0.0-1.0) mg/dL AST 21 (5-34) U/L ALT 18 (0-55) U/L Alkaline Phosphatase 59 (40-150) U/L Total Protein 6.7 (6.4-8.2) g/dL Albumin 4.0 (3.2-4.6) g/dL Lipase 23 (8-78) U/L Urine Color Yellow (YELLOW) Urine Appearance Clear (CLEAR) Urine pH 6.0 (5.5-8.0) Ur Specific [place] 1.010 (1.005-1.030) Urine Protein 30 (1+) A (Negative) mg/dL Urine Glucose (UA) Negative (Negative) mg/dL Urine Ketones Negative (Negative) mg/dL Urine Occult Blood Trace-intact A (Negative) Urine Nitrite Positive A (Negative) Urine Bilirubin Negative (Negative) Urine Urobilinogen 1.0 (0.2-1.0) EU/dL Ur Leukocyte Esterase Moderate (2+) A (Negative) Ur Microscopic Not Reportable Urine RBC 0-2 /hpf Urine WBC 11-20 /hpf Ur Squamous Epith Cells 6-10 /lpf Urine Bacteria 4+ /hpf 08/24/22 14:58 Urine Culture - Pending Urine,Clean Catch Discharge Plan Discharge (Provider) Referrals: Nathanael Brunner DO [Primary Care Provider] - Home Meds & Prescriptions: No Action fluticasone propionate 50 mcg/actuation spray,suspension 1 spray Nostril-both DAILY Qty: 32 3RF pantoprazole 40 mg tablet,delayed release (DR/EC) 40 mg PO DAILY Qty: 90 3RF cholecalciferol (vitamin D3) 50 mcg (2,000 unit) capsule 50 mcg PO DAILY multivitamin Tablet 1 tab PO DAILY metoclopramide HCl [Reglan] 5 mg tablet 5 mg PO TID PRN (Reason: nausea and vomiting) Qty: 90 0RF alprazolam 0.25 mg tablet 0.25 mg PO BID PRN (Reason: anxiety) 30 Days Qty: 60 2RF sertraline 100 mg tablet 100 mg PO DAILY Qty: 90 4RF rosuvastatin 40 mg tablet 40 mg PO DAILY Qty: 90 4RF ascorbic acid (vitamin C) [Vitamin C] 500 mg Tablet 500 mg PO DAILY loratadine 10 mg Tablet 10 mg PO DAILY ` Dictated By: Ricky Singh MD 08/24/22 1558 Signed By: <Electronically signed by Ricky Singh MD> 08/24/22 1559 Cosigned By (if applicable): [id number] cc: [facility] Work Phone: Progress note Author Andra Campbell [facility] Medical Care, [facility] December 24, 2022 11:29am Note Date/Time December 24, 2022 11:1 5am [facility] Medical Group [address] [place], [place] [id number] Office Visit Report Signed Patient Name: Sherry Ash [facility] Rec ord #: [id number] Date of : 1945 Account #: [id number] Age/Sex: 77 / F Date of Servi ce: 12/24/22 Location: [facility] Cardiology Attending physician: Andra Campbell DO Intake Vital Signs 12/24/22 11:11 12/24/22 11:15 Height 5 ft 2 in Weight 65.9 kg BMI 26.5 BP 89/53 L 89/53 L BP Location Right Brachial BP Position Sitting BP Cuff Size Adult BP Source Automatic Cuff Pulse 69 Pulse Source Monitor Intake Visit Reasons: 6 month f/u Prick Stitcher Required: No Accompanied by: Self / Same As Patient Allergies Allergy/AdvReac Type Severity Reaction Status Date / Time oxycodone Allergy Severe Headache Verified 12/21/22 14:02 Iodinated Contrast Media Allergy Mild headache, Verified 12/21/22 14:02 burning skin Penicillins Allergy Mild Rash Verified 12/21/22 14:02 Quinolones Allergy Mild Rash Verified 12/21/22 14:02 moxifloxacin Allergy Unknown Unknown Verified 12/21/22 14:02 doxycycline AdvReac Intermediate TEARS UP Verified 12/21/22 14:02 STOMACH- CAUSES ALOT OF PAIN hydrocodone AdvReac Intermediate vomiting, Verified 12/21/22 14:02 headache nitrofurantoin AdvReac Intermediate Vomiting Verified 12/21/22 14:02 [From Macrobid] albuterol AdvReac Mild HEADACHE,NA Verified 12/21/22 14:02 USEA bee venom protein (honey bee) AdvReac Mild swelling, Verified 12/21/22 14:02 vomiting calcium AdvReac Mild GI upset Verified 12/21/22 14:02 fluconazole AdvReac Mild Headache Verified 12/21/22 14:02 Current Medication List - Last Reconciled 12/24/22 by Jaida Guevara alprazolam 0.25 mg tablet 0.25 mg PO BID PRN 30 days cholecalciferol (vitamin D3) 50 mcg (2,000 unit) capsule 50 mcg PO DAILY fluticasone propionate 50 mcg/actuation nasal spray,suspension 1 spray Nostril-both DAILY loratadine 10 mg tablet 10 mg PO DAILY pantoprazole 40 mg tablet,delayed release 40 mg PO DAILY rosuvastatin 40 mg tablet 40 mg PO DAILY sertraline 100 mg tablet 150 mg (1.5 x 100 mg) PO DAILY sulfamethoxazole 800 mg-trimethoprim 160 mg tablet (Bactrim DS) 1 tab PO Q12H 4 days Is patient having pain: No Do you need a note to return to daycare/school/sports/work: No Nurse's Note: Patient here for 6 month f/u No CP, dizziness, heart palpitations PFSH PFSH Medical History Abnormal mammogram Adult hypothyroidism Anxiety Aortic heart murmur Back pain Bilateral tinnitus Breast cancer screening by mammogram Bronchitis Cataracts, bilateral Chronic pain of left ankle Congenital ureteropelvic junction obstruction Constipation Dyslipidemia Fracture of left ankle Gastritis GERD (gastroesophageal reflux disease) Granulomatous disease Heart murmur High cholesterol HTN (hypertension), benign Hydronephrosis Mitral regurgitation Nonspecific ST-T wave electrocardiographic changes Osteoporosis Pancreatitis Pneumonia Seasonal allergies UPJ (ureteropelvic junction) obstruction Surgical History H/O bladder repair surgery History of appendectomy Hx of cataract surgery Hx of cholecystectomy Hx of hysterectomy Family History Father No problems noted. Mother No problems noted. Social History Social History History Provided by: Patient Living Situation History Usual Living Arrangement: Alone Tobacco History Smoking Status: Former Smoker Years Smoked: 38 Packs Per Day: 1 Second Hand Tobacco Smoke Exposure: No AUDIT-C How Often do you Have a Drink Containing Alcohol: Never How Many Standard Drinks Containing Alcohol do you Have on a Typical Day: None How Often do you Have Six or More Drinks on One Occasion: Never AUDIT-C Alcohol Total Score: 0 Substance Use History Caffeine Use: Yes Non-Prescribed Substance Use: Denies Use Abuse History of Physical Abuse: No History of Emotional Abuse: No History of Sexual Abuse: No Suspect/Identified Abuse: No Provider Notified of Abuse or Suspected Abuse: No HPI HPI Comments History of Present Illness Details 6m f/u, patient has been tired, hands sw ollen but she has been working outside a lot Good functional capacity with no change in functional capacity. No chest pain, no dyspnea, no syncope, pre-syncope, PND, nor palpitations. Review of Systems Status of ROS Reports: 10 or more systems reviewed and unremarkable except as noted in Historyand below Constitutional Reports: other (No fever, sweats, malaise, fatigue) Eyes Reports: other (PERRLA, EOMI) Ears, Nose, Mouth, Throat Reports: other (No tinnitis, no vertigo) Cardiovascular Reports: other (As per HPI) Respiratory Reports: other (As per HPI) Gastrointestinal Reports: other (No abdominal pain or tenderness) Musculoskeletal Reports: other (No muscle weakness or lack of sensation) Integumentary/Breast Reports: other (No rashes or itching) Neurological Reports: other (No focal deficits) Psychiatric Reports: other (No psychatric complaints) Endocrine Reports: other (No changes in cold or heat tolerance, excessive thirst, or change in libido) Hematologic/Lymphatic Reports: other (No bruising or bleeding) Allergic/Immunologic Reports: other (No hives, rashes, allergies) Physical Exam Constitutional Common normals: no acute distress, patient oriented x3, healthy appearing, alertand well nourished HENT Common normals: normocephalic, Normal oral and palatal mucosa present and oropharynx normal Head and scalp: normal to inspection and normocephalic Face and sinus: normal facial exam Mouth: Normal oral and palatal mucosa present Eye Common normals: Equal, round and reactive pupils present, EOMs intact bilaterally and conjunctivae normal Conjunctiva: conjunctivae normal Pupil: Equal, round and reactive pupils present Neck & C-Spine Common normals: full ROM, no lymphadenopathy, supple, soft and no JVD Lymph Lymphatic: no lymphadenopathy noted and no lymphedema noted Chest Common normals: normal inspection of the chest and normal palpation of entire chest wall Respiratory Common normals: normal respiratory effort, No retractions, No use of accessory muscles, clear to auscultation bilaterally and Good bilateral breath sounds Auscultation: clear to auscultation bilaterally Cardio Common normals: no JVD, regular rate, regular rhythm, S1 normal heart sound present, S2 normal heart sound present, No gallops present (Cardio), No clicks present (Cardio) and No murmurs present (Cardio) Rate: regular rate Rhythm: regular rhythm Heart sounds: S1 normal heart sound present and S2 normal heart sound present GI Common normals: Normal to inspection, nondistended, normoactive bowel sounds present, Soft to palpation, non-tender, No hepatosplenomegaly present, no massesand no bruits Palpation: Soft to palpation and No hepatosplenomegaly present Common normals: no CVA tenderness Bladder/kidney exam: no CVA tenderness Back & Pelvis Common normals: no CVA tenderness, thoracic and lumbar spine normal to inspection and no thoracic nor lumbar tenderness Extremity Common normals: normal to inspection, no numbness or tingling and capillary refill normal Neuro Common normals: alert, patient oriented x3, moves all extremities and no focal motor deficits Sensorium/orientation: Yes alert Psych Common normals: mental status grossly normal, Normal thought process present, cooperative, normal affect and speech normal Speech: Yes normal speech Thought process: Normal thought process present Skin Common normals: no rashes or lesions noted and turgor normal General skin exam: no rashes or lesions noted and turgor normal Rashes: no rashes Assessment and Plan Plan Detail Assessment: Hyptensive but not symptomatic. May be due to erroneous cuff reading. If starts to feel lightheaded, will add florinef. AV SCLEROSIS- stable. Keep LDL < 70. Last LDL 79 and acceptable at this time. SOB from recent PNA in Mar 2021- improving, still mild SOB MILD MR- stable, chronic HLP- stable, chronic HTN- well controlled, stable, chronic Stable benign lung nodules on CT chest- follows with pcp and pulm. stable, chronic Excellent functional capacity- exercises 3x/week with bikes, treadmills, weights. Cont to do this. Slight discrepancy between left arm and right arm BP. Right arm 15-20 points lower. Offered CTA chest to rule out subclavian stenosis, declined. Will not change current management. Has no parathesia or weakness in left arm. Dictated By: Andra Campbell DO 12/24/22 1111 Signed By: <Electronically signed by Andra Campbell DO> 12/24/22 1129 Cosigned By (if applicable): [id number] cc: DO Nathanael Wheeler DO [facility] [employer] [facility] Work Phone: Progress note Author Tisha Lopez [facility] [email or web address] August 03, 2023 3:32pm Note Date/Time August 03, 2023 2:58 pm [facility] Medical Group [facility] [place] [id number] Office Visit Report Signed Patient Name: Sherry Ash [facility] Rec ord #: [id number] Date of : 1945 Account #: [id number] Age/Sex: 77 / F Date of Servi ce: 08/03/23 Location: [facility] Urgent Care Attending physician: Tisha Lopez PA Intake Vital Signs 08/03/23 15:00 BP 94/52 L Respiration 18 Pulse 71 Temp 98.6 F Pulse Oximetry (%) 98 Intake Visit Reasons: Stomach Pain, Possible Kidney Infection Allergies Allergy/AdvReac Type Severity Reaction Status Date / Time oxycodone Allergy Severe Headache Verified 08/03/23 14:54 Iodinated Contrast Media Allergy Mild headache, Verified 08/03/23 14:54 burning skin Penicillins Allergy Mild Rash Verified 08/03/23 14:54 Quinolones Allergy Mild Rash Verified 08/03/23 14:54 moxifloxacin Allergy Unknown Unknown Verified 08/03/23 14:54 doxycycline AdvReac Intermediate TEARS UP Verified 08/03/23 14:54 STOMACH- CAUSES ALOT OF PAIN hydrocodone AdvReac Intermediate vomiting, Verified 08/03/23 14:54 headache nitrofurantoin AdvReac Intermediate Vomiting Verified 08/03/23 14:54 [From Macrobid] albuterol AdvReac Mild HEADACHE,NA Verified 08/03/23 14:54 USEA bee venom protein (honey bee) AdvReac Mild swelling, Verified 08/03/23 14:54 vomiting calcium AdvReac Mild GI upset Verified 08/03/23 14:54 fluconazole AdvReac Mild Headache Verified 08/03/23 14:54 Current Medication List - Last Reconciled 08/03/23 by Nina Mendoza alprazolam 0.25 mg tablet 0.25 mg PO BID PRN 30 days cholecalciferol (vitamin D3) 50 mcg (2,000 unit) capsule 50 mcg PO DAILY fluticasone propionate 50 mcg/actuation nasal spray,suspension 1 spray Nostril-both DAILY loratadine 10 mg tablet 10 mg PO DAILY metoclopramide HCl 10 mg tablet (Reglan) 10 mg PO BID 3 weeks pantoprazole 40 mg tablet,delayed release 40 mg PO BID rosuvastatin 40 mg tablet 40 mg PO DAILY sucralfate 1 gram tablet (Carafate) 1 GM PO Q6H PRN venlafaxine 37.5 mg capsule,extended release 24 hr 37.5 mg PO DAILY 90 days NS Nurse's Note: started last week with lot of gas and constipated, last good bm month ago having stools but very small has to use suppository, no nauseated burping some , feels bloated, PFSH PFSH Medical History Abnormal mammogram Adult hypothyroidism Anxiety Aortic heart murmur Back pain Bilateral tinnitus Breast cancer screening by mammogram Bronchitis Cataracts, bilateral Chronic pain of left ankle Congenital ureteropelvic junction obstruction Constipation Dyslipidemia Fracture of left ankle Gastritis GERD (gastroesophageal reflux disease) Granulomatous disease Heart murmur High cholesterol HTN (hypertension), benign Hydronephrosis Mitral regurgitation Nonspecific ST-T wave electrocardiographic changes Osteoporosis Pancreatitis Pneumonia Seasonal allergies UPJ (ureteropelvic junction) obstruction Surgical History H/O bladder repair surgery History of appendectomy Hx of cataract surgery Hx of cholecystectomy Hx of hysterectomy Family History Father No problems noted. Mother No problems noted. Urgent Care Social History Social History History Provided by: Patient Living Situation History Usual Living Arrangement: Alone Anyone at Home Need Help While Hospitalized: No Tobacco History Smoking Status: Former Smoker Years Smoked: 38 Packs Per Day: 1 Other Form of Tobacco Used: Never Used Second Hand Tobacco Smoke Exposure: No AUDIT-C How Often do you Have a Drink Containing Alcohol: Never How Many Standard Drinks Containing Alcohol do you Have on a Typical Day: None How Often do you Have Six or More Drinks on One Occasion: Never AUDIT-C Alcohol Total Score: 0 Substance Use History Caffeine Use: Yes Non-Prescribed Substance Use: Denies Use Has Patient Ever Been Admitted to Treatment Facility for Alcohol/Drug Abuse: No Abuse History of Physical Abuse: No History of Emotional Abuse: No History of Sexual Abuse: No Suspect/Identified Abuse: No Provider Notified of Abuse or Suspected Abuse: No HPI HPI Comments History of Present Illness Details Patient is a pleasant 77-year-old female who presents today complainingof intermittent dysuria x 1 week. No hematuria, fever. She has hx of recurrent UTIs. She has been having abdominal bloating and poor appetite. She has been struggling with constipation x 6-7 months and takes miralax daily and utilizes suppositories intermittently. She reports worsening constipation over the past 1week. She reports her last BM to be yesterday and describes it to be small. PMhxsignificant for gastroparesis, appendectomy, choley. She had her last colonoscopy in 2018, she was advised to repeat in 10 years. She is following with [facility] and has appointment in September. Review of Systems Status of ROS Reports: 10 or more systems reviewed and unremarkable except as noted in Historyand below Physical Exam Constitutional Common normals: no acute distress, patient oriented x3 and alert HENT Common normals: normocephalic and atraumatic Head and scalp: normocephalic and atraumatic Eye Common normals: Equal, round and reactive pupils present, EOMs intact bilaterally and conjunctivae normal Conjunctiva: conjunctivae normal Pupil: Equal, round and reactive pupils present Neck & C-Spine Common normals: full ROM, supple and soft Respiratory Common normals: normal respiratory effort, Normal inspection, No retractions, Nouse of accessory muscles and clear to auscultation bilaterally Auscultation: clear to auscultation bilaterally Cardio Common normals: regular rate, regular rhythm and No murmurs present (Cardio) Rate: regular rate Rhythm: regular rhythm GI Common normals: Soft to palpation, non-tender and no masses Inspection: normal to inspection Auscultation: Hyperactive bowel sounds present Palpation: Soft to palpation; non-tender, no Guarding due to palpation present (GI) and not rigid Common normals: no CVA tenderness Bladder/kidney exam: no CVA tenderness Back & Pelvis Common normals: no CVA tenderness Neuro Common normals: alert and patient oriented x3 Sensorium/orientation: Yes alert Assessment & Plan Assessment & Plan (1) Constipation: Code(s): K59.00 - Constipation, unspecified Qualifiers: Constipation type: unspecified constipation type Qualified Code(s): K59.00 - Constipation, unspecified (2) Dysuria: Code(s): R30.0 - Dysuria Plan Patient is a pleasant 77-year-old female who presents today complaining of intermittent dysuria x 1 week. No hematuria, fever. She has hx of recurrent UTIs. She has been having abdominal bloating and poor appetite. She has been struggling with constipation x 6-7 months and takes miralax daily and utilizes suppositories intermittently. She reports worsening constipation over the past 1week. She reports her last BM to be yesterday and describes it to be small. PMhxsignificant for gastroparesis, appendectomy, choley. She had her last colonoscopy in 2018, she was advised to repeat in 10 years. [facility] On exam, patient is afebrile. No CVA tenderness. ABd is soft and nontender. She has hyperactive bowel sounds. Exam otherwise unremarkable. UA showing trace leuks only. We will send for culture given hx of recurrent UTIs; however, I suspect trace leuks to be secondary to poor specimen collection. XR negative for bowel obstruction showing constipation. Symptomatic treatment discussed. Patient's vitals are stable and patient is nontoxic appearing. Agreeable with plan and discharge home. Standard, Ed, red flag warnings given. All questions were answered during the encounter and the patient was in agreement with plan of care.? The patient was instructed to call if worsening ornot improving.? The patient was counseled regarding impressions, instructions for management and importance of compliance with treatment. Nursing notes and assessments: Reviewed and agree. Orders: Orders AM.Urinalysis Today R14.0 - Abdominal distension (gaseous) Urine Culture Today R30.0 - Dysuria XR KUB Today K59.00 - Constipation, unspecified Patient Instructions: Increase Miralax to three times daily Continue suppository daily until bowel movements are better regulated Increase fluids and fiber Follow up with GI provider as directed We will call with urine culture results when available Return sooner for new or worsening symptoms: high fever, change in mentation, worsening abdominal pain/bloating, complete cessation of bowel movements, worsening urinary symptoms. Results UA Results Urine Apperance clear Last Edit by Nina Mendoza on 08/03/23 15:06 Urine Color Yellow Last Edit by Nina Mendoza on 08/03/23 15:06 Urine Glucose Negative Last Edit by Nina Mendoza on 08/03/23 15:06 Urine Bilirubin Negative Last Edit by Nina Mendoza on 08/03/23 15:06 Urine Ketones Negative Last Edit by Nina Mendoza on 08/03/23 15:06 Urine Specific [place] 1.020 Last Edit by Nina Mendoza on 08/03/23 15:0 6 Urine Blood Negative Last Edit by Nina Mendoza on 08/03/23 15:06 Urine pH 5.5 Last Edit by Nina Mendoza on 08/03/23 15:06 Urine Protein Negative Last Edit by Nina Mendoza on 08/03/23 15:06 Urine Urobilinogen 0.2 Last Edit by Nina Mendoza on 08/03/23 15:06 Urine Nitrite Negative Last Edit by Nina Mendoza on 08/03/23 15:06 Urine Leukocytes Trace Last Edit by Nina Mendoza on 08/03/23 15:06 Dictated By: CHIKIS Velasco 08/03/23 1454 Signed By: <Electronically signed by CHIKIS Lopez> 08/03/23 1532 Cosigned By (if applicable): [id number] cc: CHIKIS Velasco [facility] [email or web address] Work Phone: Progress note Author Joy Wan [facility] [employer] [facility] Note Date/Time February 28, 2024 10:31am [facility] Medical Group [address] [place] [id number] Office Visit Report Signed Patient Name: Sherry Ash Rec ord #: [id number] Date of : 1945 Account #: [id number] Age/Sex: 78 / F Date of Servi ce: 02/28/24 Location: [facility] Orthopedics Attending physician: Joy DIOP HPI HPI Prolia, No PA needed: Details: Sherry Ash is a 78 year old HPI Comments Details: Patient is here today for repeat Prolia injection. She has had no falls since her last visit here. She does not take calcium supplementation as it upsets herstomach. She is taking vitamin D. The patient reports a skin lesion that started 2-3 months ago, initially presenting as red with scales. In the last couple of days, the lesion has changed in appearance, becoming purple with scaly over top. She denies any pain or tenderness associated with the lesion and has no difficulty moving her arm. She has been under the care of a senior data modeler and her PCP and has been taking vitamin C with bioflavonoids and rosehips to control the psoriasis. She has a history of 2 fragility fractures. Secondary causes of osteoporosis include premature menopause after hysterectomy with bilateral salpingo-oophorectomy. No family history of fracture. She works out at the gym regularly. No family history of fracture. Ortho Exam Narrative Exam Narrative: - Physical Examination: - Skin: Dime-sized lesion on the arm, described as purple with scaly overlay, non-tender, not painful. Full range of motion without discomfort. - Musculoskeletal: No falls. Active at gym. - Diagnostic Test Results and Labs: - N/A Assessment & Plan Assessment & Plan (1) Postmenopausal: Code(s): Z78.0 - Asymptomatic menopausal state Category: Medical (2) Osteoporosis: Code(s): M81.0 - Age-related osteoporosis without current pathological fracture Category: Medical Plan: 1. Osteoporosis with history of 2 fragility fractures Assessment: - Established diagnosis Plan: a. Proceed with repeat Prolia injection today b. Schedule follow up in 6 months for bloodwork including vitamin D level, CMP, PTH . Psoriasis with recent color change Plan: a. Patient to take daily photographs of affected area to track changes b. Follow up with senior data modeler or PCP if worsens or no improvement c. Continue current psoriasis medication as prescribed General health and exercise Plan: - Encourage regular exercise and gym activities to maintain overall health and prevent falls Orders: Orders Prolia Injection Today M81.0 - Age-related osteoporosis without current pathological fracture Medications: New denosumab 60 mg subcut ONCE 1 mL 0RF M81.0 - Age-related osteoporosis without current pathological fracture Xray Readings Imaging Studies Recent Pertinent Imaging Studies: No Data to Display Vital Signs 02/28/24 10:17 02/28/24 10:18 Height 5 ft 2 in Weight (kg) 70.08 kg BMI 28.2 BP 98/66 L 98/66 L BP Location Right Brachial BP Position Sitting BP Cuff Size Adult BP Source Automatic Cuff Pulse 79 Pulse Source NIBP Temp 98.2 F Temp Source Temporal Artery Scan Intake Visit Reasons: Prolia, No PA needed Allergies Allergy/AdvReac Type Severity Reaction Status Date / Time oxycodone Allergy Severe Headache Verified 02/28/24 10:18 Iodinated Contrast Media Allergy Mild headache, Verified 02/28/24 10:18 burning skin Penicillins Allergy Mild Rash Verified 02/28/24 10:18 Quinolones Allergy Mild Rash Verified 02/28/24 10:18 moxifloxacin Allergy Unknown Unknown Verified 02/28/24 10:18 cephalexin AdvReac Intermediate Vomiting Verified 02/28/24 10:18 doxycycline AdvReac Intermediate TEARS UP Verified 02/28/24 10:18 STOMACH- CAUSES ALOT OF PAIN hydrocodone AdvReac Intermediate vomiting, Verified 02/28/24 10:18 headache nitrofurantoin (From AdvReac Intermediate Vomiting Verified 02/28/24 10:18 Macrobid) albuterol AdvReac Mild HEADACHE,NA Verified 02/28/24 10:18 USEA bee venom protein (honey bee) AdvReac Mild swelling, Verified 02/28/24 10:18 vomiting calcium AdvReac Mild GI upset Verified 02/28/24 10:18 fluconazole AdvReac Mild Headache Verified 02/28/24 10:18 Current Medication List - Last Reconciled 02/28/24 by Janna Marino alprazolam 0.25 mg tablet 0.25 mg PO BID PRN 30 days cholecalciferol (vitamin D3) 50 mcg (2,000 unit) capsule 50 mcg PO DAILY denosumab 60 mg/mL subcutaneous syringe (Prolia) 60 mg subcut [id number] fluticasone propionate 50 mcg/actuation nasal spray,suspension 1 spray Nostril-both DAILY loratadine 10 mg tablet 10 mg PO DAILY metoclopramide HCl 10 mg tablet (Reglan) 10 mg PO BID 2 weeks multivitamin 1 tab PO DAILY pantoprazole 40 mg tablet,delayed release 40 mg PO BID 90 days polyethylene glycol 3350 17 gram oral powder packet (Miralax) 17 grams PO DAILY PRN rosuvastatin 40 mg tablet 40 mg PO DAILY 90 days sucralfate 1 gram tablet (Carafate) 1 GM PO Q6H PRN sulfamethoxazole 800 mg-trimethoprim 160 mg tablet (Bactrim DS) 1 tab PO BID 3 days triamcinolone acetonide 0.1 % topical cream 1 applic topical BID PRN 2 weeks venlafaxine 37.5 mg capsule,extended release 24 hr 37.5 mg PO DAILY 90 days NS Is patient having pain: No PFSH Medical History Congenital ureteropelvic junction obstruction Granulomatous disease Hydronephrosis Chronic pain of left ankle Abnormal mammogram Breast cancer screening by mammogram HTN (hypertension), benign Dyslipidemia Mitral regurgitation Aortic heart murmur Nonspecific ST-T wave electrocardiographic changes Bilateral tinnitus Osteoporosis Fracture of left ankle Adult hypothyroidism Pancreatitis Pneumonia Constipation Gastritis Bronchitis Anxiety Back pain UPJ (ureteropelvic junction) obstruction Cataracts, bilateral Heart murmur Seasonal allergies GERD (gastroesophageal reflux disease) High cholesterol Surgical History Hx of cataract surgery History of appendectomy H/O bladder repair surgery Hx of cholecystectomy Hx of hysterectomy Family History Father No problems noted. Mother No problems noted. Social History Social History History Provided by: Patient Living Situation History Usual Living Arrangement: Alone Anyone at Home Need Help While Hospitalized: No Tobacco History Smoking Status: Former Smoker Years Smoked: 38 Packs Per Day: 1 Other Form of Tobacco Used: Never Used Second Hand Tobacco Smoke Exposure: No AUDIT-C How Often do you Have a Drink Containing Alcohol: Never How Many Standard Drinks Containing Alcohol do you Have on a Typical Day: None How Often do you Have Six or More Drinks on One Occasion: Never AUDIT-C Alcohol Total Score: 0 Substance Use History Caffeine Use: Yes Non-Prescribed Substance Use: Denies Use Has Patient Ever Been Admitted to Treatment Facility for Alcohol/Drug Abuse: No Abuse History of Physical Abuse: No History of Emotional Abuse: No History of Sexual Abuse: No Suspect/Identified Abuse: No Provider Notified of Abuse or Suspected Abuse: No Office Procedures Office Procedure Procedure Completed?: Yes Office Meds denosumab 60 mg/mL subcutaneous syringe Performing Provider: CHIKIS Conner Performing Location: [facility] Orthopedics Administered by: CHIKIS Conner on 02/28/24 10:25 Dose Route Admin Location Dispensed Lot Number Expiration Date [employer] 60 mg subcut left deltoid 1 mL [id number] 10/28/25 64148-430-04 AMGEN Dictated By: CHIKIS Conner 02/28/24 1017 Signed By: <Electronically signed by CHIKIS Wan> 02/28/24 1103 Cosigned By (if applicable): [id number] cc: DO Joy Bustos PA [facility] Medical Care, [employer] Work Phone: Progress note Author Hugh Julian [facility] Note Date/Time March 27, 2024 1 1:26am [facility] [address] [place] [address] Emergency Department Note Signed Patient Name: Sherry Ash [facility] Record #: [id number] Date of : 1945 Age/Sex: 78 / F Location: ED Attending physician: HPI - General Adult General Date of Visit: 03/27/24 Chief complaint: Urogenital-Female Time Seen by Provider: 03/27/24 09:00 History of Present Illness HPI narrative: The patient is a 78 year old who presented to the Emergency Department with the complaint of lower abdominal pain and dysuria. Patient tells me symptoms have been going on since this past Wednesday. She has been nauseated but has not vomited. She has had chills but denies fever. She complains of being raw in her genital area. 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 She has had stents in but it was not able to tolerate them for more than 3 weeks. 2 weeks ago she was placed on antibiotics because of a urinary tract infection. She completed the course, 5 days, of antibiotics without really complete resolution of her symptoms. Urine was not cultured. Mode of Arrival: Ambulatory Home Meds and Allergies Home Medications ?Medication ?Instructions ?Recorded ?Confirmed ?Type cholecalciferol (vitamin D3) 50 50 mcg PO DAILY 12/26/20 03/27/24 History mcg (2,000 unit) capsule loratadine 10 mg tablet 10 mg PO DAILY 08/24/22 03/27/24 History sucralfate 1 gram tablet (Carafate) 1 gm PO Q6H PRN stomach upset 05/14/23 03/27/24 History fluticasone propionate 50 1 spray Nostril-both DAILY #32 08/13/23 03/27/24 Rx mcg/actuation nasal grams spray,suspension denosumab 60 mg/mL subcutaneous 60 mg subcut [id number] 08/26/23 03/27/24 History syringe (Prolia) rosuvastatin 40 mg tablet 40 mg PO DAILY 90 days #90 tabs 11/10/23 03/27/24 Rx polyethylene glycol 3350 17 gram 17 gm PO DAILY PRN constipation 11/17/23 03/27/24 History oral powder packet (Miralax) pantoprazole 40 mg tablet,delayed 40 mg PO BID 90 days #180 tabs 12/22/23 03/27/24 Rx release triamcinolone acetonide 0.1 % 1 applic topical BID PRN 01/24/24 03/27/24 Rx topical cream outbreak/dermatitis 2 weeks #30 grams venlafaxine 37.5 mg 37.5 mg PO DAILY 90 days #90 caps 01/24/24 03/27/24 Rx capsule,extended release 24 hr alprazolam 0.25 mg tablet 0.25 mg PO BID PRN anxiety 30 days 02/17/24 03/27/24 Rx #60 tabs multivitamin 1 tab PO DAILY 02/17/24 03/27/24 History nystatin 100,000 unit/gram topical 1 applic topical BID 03/27/24 03/27/24 History powder (Nystop) ondansetron 4 mg disintegrating 4 mg PO Q6H PRN nausea and 03/27/24 Rx tablet vomiting #12 tabs Allergies Allergy/AdvReac Type Severity Reaction Status Date / Time oxycodone Allergy Severe Headache Verified 03/27/24 09:23 Iodinated Contrast Media Allergy Mild headache, Verified 03/27/24 09:23 burning skin Penicillins Allergy Mild Rash Verified 03/27/24 09:23 Quinolones Allergy Mild Rash Verified 03/27/24 09:23 moxifloxacin Allergy Unknown Unknown Verified 03/27/24 09:23 cephalexin AdvReac Intermediate Vomiting Verified 03/27/24 09:23 doxycycline AdvReac Intermediate TEARS UP Verified 03/27/24 09:23 STOMACH- CAUSES ALOT OF PAIN hydrocodone AdvReac Intermediate vomiting, Verified 03/27/24 09:23 headache nitrofurantoin (From AdvReac Intermediate Vomiting Verified 03/27/24 09:23 Macrobid) albuterol AdvReac Mild HEADACHE,NA Verified 03/27/24 09:23 USEA bee venom protein (honey bee) AdvReac Mild swelling, Verified 03/27/24 09:23 vomiting calcium AdvReac Mild GI upset Verified 03/27/24 09:23 fluconazole AdvReac Mild Headache Verified 03/27/24 09:23 Review of Systems Status of ROS: Reports: 10 or more systems reviewed and unremarkable except asnoted in History and below History PFSH Medical History Congenital ureteropelvic junction obstruction Granulomatous disease Hydronephrosis Chronic pain of left ankle Abnormal mammogram Breast cancer screening by mammogram HTN (hypertension), benign Dyslipidemia Mitral regurgitation Aortic heart murmur Nonspecific ST-T wave electrocardiographic changes Bilateral tinnitus Osteoporosis Fracture of left ankle Adult hypothyroidism Pancreatitis Pneumonia Constipation Gastritis Bronchitis Anxiety Back pain UPJ (ureteropelvic junction) obstruction Cataracts, bilateral Heart murmur Seasonal allergies GERD (gastroesophageal reflux disease) High cholesterol Surgical History Hx of cataract surgery History of appendectomy H/O bladder repair surgery Hx of cholecystectomy Hx of hysterectomy Family History Father Diabetes mellitus Alcohol abuse Mother Elevated cholesterol Alcohol abuse Social History History Provided by: Patient Preferred Language: Sammarinese Language Assistance Offered: Not Applicable Usual Living Arrangement: Alone Smoking Status: Former Smoker Years Smoked: 38 Packs Per Day: 1 Other Form of Tobacco Used: Never Used Second Hand Tobacco Smoke Exposure: No How Often do you Have a Drink Containing Alcohol: Never How Many Standard Drinks Containing Alcohol do you Have on a Typical Day: None How Often do you Have Six or More Drinks on One Occasion: Never AUDIT-C Alcohol Total Score: 0 Non-Prescribed Substance Use: Denies Use Has Patient Ever Been Admitted to Treatment Facility for Alcohol/Drug Abuse: No History of Physical Abuse: No History of Emotional Abuse: No History of Sexual Abuse: No Suspect/Identified Abuse: No Provider Notified of Abuse or Suspected Abuse: No Physical Exam Narrative: Vital signs, click to edit/add: Vital Signs - 24 hr 03/27/24 08:45 Temperature 97.6 F Pulse Rate [Right Brachial] 67 Respiratory Rate 18 Blood Pressure [Ri ght Arm] 110/70 Pulse Oximetry 97 Oxygen Delivery Me thod Room Air Constitutional: Common normals: no acute distress, patient oriented x3 and alert Orientation/consciousness: Yes awake HENT: Common normals: normocephalic, atraumatic and Normal oral and palatal mucosa present Head and scalp: normocephalic and atraumatic Mouth: Normal oral and palatal mucosa present Eye: Common normals: Equal, round and reactive pupils present, EOMs intact bilaterally and conjunctivae normal General eye: appearance normal, both eyesand all related structures Conjunctiva: conjunctivae normal Pupil: Equal, round and reactive pupils present Neck & C-Spine: Common normals: full ROM, supple and no meningeal signs General: trachea midline Respiratory: Common normals: normal respiratory effort, Normal inspection, No retractions, No use of accessory muscles, clear to auscultation bilaterally and Good bilateral breath sounds Auscultation: clear to auscultation bilaterally Cardio: Common normals: regular rate and regular rhythm Rate: regular rate Rhythm: regular rhythm GI: Common normals: Normal to inspection, nondistended, normoactive bowel sounds present and Soft to palpation Palpation: Soft to palpation Other: Patient is tender in lower quadrants and suprapubic area with voluntary guarding. No surgical findings. Extremity: Common normals: normal to inspection, full ROM, no clubbing, cyanosis or edema and no pedal edema Neuro: Common normals: alert, patient oriented x3, CN's II-XII intact bilaterally, no focal motor deficits and no sensory deficits noted Sensorium/orientation: Yes awake and Yes alert Meningeal signs: Yes no meningeal signs Psych: Common normals: mental status grossly normal, Normal thought process present, cooperative, normal affect and speech normal Speech: Yes normal speech Thought process: Normal thought process present Skin: Common normals: warm, normal color and no rashes or lesions noted Narrative: I did not undress this patient. General skin exam: no rashes or lesions noted Medical Decision Making MDM Narrative Medical decision making narrative: Patient be treated symptomatically here. I will get a CAT scan of her abdomen pelvis. Septic workup has been initiated because of recurrent urinary tract infections and concerned of resistance as well. Lab Data Lab results reviewed: Yes I reviewed the patient's lab results. Abnormal Labs: Abnormal Labs 03/27/24 09:48 Eos % (Auto) 0 L Baso # (Auto) 0.0 L Random Glucose 111 H Labs: Lab Results 03/27/24 03/27/24 Range/Units 09:45 09:48 WBC 6.2 (3.2-9.3) 10'3/uL RBC 4.32 (3.85-4.88) 10'6/uL Hgb 12.8 (11.7-14.9) g/dL Hct 37.6 (34.6-44.1) % MCV 87.0 (83.0-97.4) fL MCH 29.6 (27.8-33.2) pg MCHC 34.0 (32.7-34.8) g/dL RDW 13.2 (12.2-15.8) % Plt Count 143 (122-359) 10'3/uL MPV 10.0 (7.6-10.6) fL Neut % (Auto) 70 (41-72) % Lymph % (Auto) 24 (20-35) % [place] % (Auto) 6 (4-12) % Eos % (Auto) 0 L (2-5) % Baso % (Auto) 1 (0-1) % Lymph # (Auto) 1.5 (0.5-3.5) 10'3/uL [place] # (Auto) 0.4 (0.2-0.8) 10'3/uL Eos # (Auto) 0.0 (0.0-0.4) 10'3/uL Baso # (Auto) 0.0 L (0.1-0.2) 10'3/uL Absolute Neutrophils 4.4 (1.5-5.6) 10'3/uL Sodium 139 (136-145) mmol/L Potassium 4.2 (3.5-5.1) mmol/L Chloride 105 (98-107) mmol/L Carbon Dioxide 23 (23-31) mmol/L Anion Gap 11 (5-13) mEq/L BUN 13 (7-18) mg/dL Creatinine 0.87 (0.57-1.11) mg/dL eGFR >60 (mL/min/1.73m2) Random Glucose 111 H (70-100) mg/dL Lactic Acid 1.2 (0.4-2.0) mmol/L Calcium 9.2 (8.4-10.2) mg/dL Total Bilirubin 0.6 (0.0-1.0) mg/dL AST 23 (5-34) U/L ALT 17 (0-55) U/L Alkaline Phosphatase 62 (40-150) U/L Total Protein 6.4 (6.4-8.2) g/dL Albumin 4.2 (3.2-4.6) g/dL Lipase 36 (8-78) U/L Urine Color Yellow (YELLOW) Urine Appearance Clear (CLEAR) Urine pH 8.0 (5.5-8.0) Ur Specific [place] 1.020 (1.005-1.030) Urine Protein Negative (Negative) mg/dL Urine Glucose (UA) Negative (Negative) mg/dL Urine Ketones Negative (Negative) mg/dL Urine Occult Blood Negative (Negative) Urine Nitrite Negative (NEGATIVE) Urine Bilirubin Negative (Negative) Urine Urobilinogen 0.2 (0.2-1.0) EU/dL Leukocyte Esterase (Auto) Negative (Negative) Ur Microscopic Not Reportable Urine RBC 0-2 (0-2) /hpf Urine Microscopic WBC 0-2 (0) /hpf Ur Squamous Epith Cells 0-2 (0) Urine Bacteria Trace (0) /hpf 03/27/24 09:48 Blood Culture - Pending Blood 03/27/24 09:43 Blood Culture - Pending Blood Imaging Data Radiologist's impression: [id number] [place] [address] CT Scan Report Signed Patient Name: Sherry Ash Date of : 1945 Age/Sex: 78 / F Location: ED Attending physician: Ordering Provider: Hugh Julian MD Date of Service: 03/27/24 Procedure(s): CT abd/pel wo con HISTORY: Lower abdominal pain. Possible kidney infection Study: CT abdomen and pelvis without contrast dated 03/27/2024. 10:13 a.m. TECHNIQUE: Axial images were obtained from the dome of the diaphragm down to the symphysis pubis without oral or IV contrast. Coronal and sagittal reconstruction imaging was performed. Coronal MPR images were reconstructed from the 3D data set. Individualized dose optimization techniques were used for the CT scan. Findings: In the lower thorax, a small right lower lobe pulmonary nodule measures about 7 mm likely benign. Within the abdomen, patient has had a previous cholecystectomy. The liver is otherwise normal. The spleen is normal. The pancreas is normal. The adrenal glands are normal. Bilateral extrarenal pelvii are noted with proximal hydronephrosis. The ureters are not dilated. No ureteral stones. Sigmoid diverticulosis is present. Bladder contours are smooth. IMPRESSION: Extrarenal pelves bilaterally with an element of congenital UPJ narrowing proximal hydronephrosis. Benign-appearing 7 mm right pulmonary nodule in the right lower lobe likely benign. 6-month follow-up CT of the chest is recommended to ensure stability. Sigmoid diverticulosis. Dictated By: Mihir Myers MD Signed By: <Electronically signed by Mihir Myers MD in OV> 03/27/24 1037 Procedures Procedural Sedation Performed Procedural Sedation Performed: No Course Course Medication Administered: Active Medications Generic Name Dose Route Start Last Admin Trade Name Freq PRN Reason Stop Dose Admin Sodium Chloride 9 ml 03/27/24 09:33 03/27/24 10:22 Sodium Chloride 0.9% Flush 3 Ml Syringe IVPUSH 04/26/24 09:32 3 ml PRN PRN Administration FLUSH Sodium Chloride 250 ml 03/27/24 09:33 0.9 % Sodium Chloride - 250 Ml Flush Bag IV 04/26/24 09:32 ONCE PRN FLUSH Discontinued Medications Generic Name Dose Route Start Last Admin Trade Name Freq PRN Reason Stop Dose Admin Ondansetron HCl 4 mg 03/27/24 10:00 03/27/24 10:22 Ondansetron 4 Mg/2 Ml Vial IVPUSH 03/27/24 10:01 4 mg ONCE ONE Administration Vital Signs Vital signs: Vital Signs 03/27/24 08:45 Temperature 97.6 F Pulse Rate [Right Brachial] 67 Respiratory Rate 18 Blood Pressure [Right Arm] 110/70 Pulse Oximetry 97 Oxygen Delivery Method Room Air Reevaluation 1 Time: 11:22 Reevaluation: Patient is resting comfortably. Belly is nonsurgical. She ambulates without any difficulty. She does not look toxic. I feel symptoms are not life or organthreatening I feel that outpatient management with supportive care is appropriate. Supportive care instructions have been given. Discharge Plan Discharge (Provider) Patient Disposition: Home, Self-Care Clinical Impression: Nausea Abdominal pain Qualifiers: Abdominal location: lower abdomen, unspecified Qualified Code(s): R10.30 - Lower abdominal pain, unspecified Condition: Good Referrals: Nicole Garcia DO [Primary Care Provider] - 2-3 Days Home Meds & Prescriptions: New ondansetron 4 mg tablet,disintegrating 4 mg PO Q6H PRN (Reason: nausea and vomiting) Qty: 12 0RF No Action fluticasone propionate 50 mcg/actuation spray,suspension 1 spray Nostril-both DAILY Qty: 32 3RF polyethylene glycol 3350 [Miralax] 17 gram powder in packet 17 gm PO DAILY PRN (Reason: constipation) cholecalciferol (vitamin D3) 50 mcg (2,000 unit) capsule 50 mcg PO DAILY sucralfate [Carafate] 1 gram tablet 1 gm PO Q6H PRN (Reason: stomach upset) Prolia 60 mg/mL syringe 60 mg subcut [id number] triamcinolone acetonide 0.1 % cream 1 applic topical BID PRN (Reason: outbreak/dermatitis) 14 Days Qty: 30 1RF Rx Instructions: as needed use twice daily for up to 2 weeks at a time for affected areas venlafaxine 37.5 mg capsule,extended release 24hr 37.5 mg PO DAILY 90 Days Qty: 90 3RF multivitamin Tablet 1 tab PO DAILY alprazolam 0.25 mg tablet 0.25 mg PO BID PRN (Reason: anxiety) 30 Days Qty: 60 2RF rosuvastatin 40 mg tablet 40 mg PO DAILY 90 Days Qty: 90 3RF pantoprazole 40 mg tablet,delayed release (DR/EC) 40 mg PO BID 90 Days Qty: 180 3RF loratadine 10 mg Tablet 10 mg PO DAILY nystatin [Nystop] 100,000 unit/gram powder 1 applic topical BID ` Dictated By: Hugh Julian MD 03/27/24 0957 Signed By: <Electronically signed by Hugh Julian MD> 03/27/24 1126 Cosigned By (if applicable): [id number] cc: [facility] Work Phone: Progress note Author Nicole Garcia [facility] Medical Care, [facility] Note Date/Time March 30, 2024 9 :36am [facility] Medical Group [facility] [place] [address] Office Visit Report Signed Patient Name: Sherry Ash [facility] Rec ord #: [id number] Date of : 1945 Account #: [id number] Age/Sex: 78 / F Date of Servi ce: 03/30/24 Location: [facility] Primary Care [place] Attending physician: Nicole Garcia DO Vital Signs 03/30/24 08:02 03/30/24 08:04 Height 5 ft 2 in Weight (kg) 152 lb 8 oz BMI 27.8 BP 112/68 112/68 BP Location Right Brachial BP Position Sitting BP Cuff Size Adult BP Source Manual Cuff Respiration 18 Pulse 58 L Pulse Source Monitor Temp 98.2 F Temp Source Temporal Artery Scan Pulse Oximetry (%) 96 Oxygen Delivery Method Room Air Intake Visit Reasons: ER Follow Up Allergies Allergy/AdvReac Type Severity Reaction Status Date / Time oxycodone Allergy Severe Headache Verified 03/30/24 07:57 Iodinated Contrast Media Allergy Mild headache, Verified 03/30/24 07:57 burning skin Penicillins Allergy Mild Rash Verified 03/30/24 07:57 Quinolones Allergy Mild Rash Verified 03/30/24 07:57 moxifloxacin Allergy Unknown Unknown Verified 03/30/24 07:57 cephalexin AdvReac Intermediate Vomiting Verified 03/30/24 07:57 doxycycline AdvReac Intermediate TEARS UP Verified 03/30/24 07:57 STOMACH- CAUSES ALOT OF PAIN hydrocodone AdvReac Intermediate vomiting, Verified 03/30/24 07:57 headache nitrofurantoin (From AdvReac Intermediate Vomiting Verified 03/30/24 07:57 Macrobid) albuterol AdvReac Mild HEADACHE,NA Verified 03/30/24 07:57 USEA bee venom protein (honey bee) AdvReac Mild swelling, Verified 03/30/24 07:57 vomiting calcium AdvReac Mild GI upset Verified 03/30/24 07:57 fluconazole AdvReac Mild Headache Verified 03/30/24 07:57 Current Medication List - Last Reconciled 03/30/24 by Alma Rodriguez alprazolam 0.25 mg tablet 0.25 mg PO BID PRN 30 days cholecalciferol (vitamin D3) 50 mcg (2,000 unit) capsule 50 mcg PO DAILY denosumab 60 mg/mL subcutaneous syringe (Prolia) 60 mg subcut [id number] fluticasone propionate 50 mcg/actuation nasal spray,suspension 1 spray Nostril-both DAILY loratadine 10 mg tablet 10 mg PO DAILY multivitamin 1 tab PO DAILY nystatin 100,000 unit/gram topical powder (Nystop) 1 applic topical BID PRN ondansetron 4 mg disintegrating tablet 4 mg PO Q6H PRN pantoprazole 40 mg tablet,delayed release 40 mg PO BID 90 days polyethylene glycol 3350 17 gram oral powder packet (Miralax) 17 grams PO DAILY PRN rosuvastatin 40 mg tablet 40 mg PO DAILY 90 days Saccharomyces boulardii (Daily Probiotic (S. boulardii)) PO DAILY triamcinolone acetonide 0.1 % topical cream 1 applic topical BID PRN 2 weeks venlafaxine 37.5 mg capsule,extended release 24 hr 37.5 mg PO DAILY 90 days NS Nurse's Note: Pt here for f/u after being seen in ER on 03/27/24. Pt states she is still having nausea and her eyes are burning. She is taking zofran prn. Pt states the ER diagnosed her with a GI virus. Pt states she went to [facility] in July, she was prescribed Linzess that made her sick. She does not have a f/u visit. [facility] Medical History (Updated 03/30/24 @ 08:49 by Nicole Garcia DO) Acute UTI (urinary tract infection) Congenital ureteropelvic junction obstruction Granulomatous disease Hydronephrosis Chronic pain of left ankle Abnormal mammogram Breast cancer screening by mammogram HTN (hypertension), benign Dyslipidemia Mitral regurgitation Aortic heart murmur Nonspecific ST-T wave electrocardiographic changes Bilateral tinnitus Osteoporosis Fracture of left ankle Adult hypothyroidism Pancreatitis Pneumonia Constipation Gastritis Bronchitis Anxiety Back pain UPJ (ureteropelvic junction) obstruction Cataracts, bilateral Heart murmur Seasonal allergies GERD (gastroesophageal reflux disease) High cholesterol Surgical History Hx of cataract surgery History of appendectomy H/O bladder repair surgery Hx of cholecystectomy Hx of hysterectomy Family History Father Diabetes mellitus Alcohol abuse Mother Elevated cholesterol Alcohol abuse Social History Social History History Provided by: Patient Living Situation History Usual Living Arrangement: Alone Anyone at Home Need Help While Hospitalized: No Tobacco History Smoking Status: Former Smoker Years Smoked: 38 Packs Per Day: 1 Other Form of Tobacco Used: Never Used Second Hand Tobacco Smoke Exposure: No AUDIT-C How Often do you Have a Drink Containing Alcohol: Never How Many Standard Drinks Containing Alcohol do you Have on a Typical Day: None How Often do you Have Six or More Drinks on One Occasion: Never AUDIT-C Alcohol Total Score: 0 Substance Use History Caffeine Use: Yes Non-Prescribed Substance Use: Denies Use Has Patient Ever Been Admitted to Treatment Facility for Alcohol/Drug Abuse: No Abuse History of Physical Abuse: No History of Emotional Abuse: No History of Sexual Abuse: No Suspect/Identified Abuse: No Provider Notified of Abuse or Suspected Abuse: No HPI HPI ER Follow Up: Details: Patient presents for ER follow-up, summarized as below. === She does also have a significant history of anxiety and depression, has been on alprazolam 0.25 mg twice daily as needed [which was titrated down in the past] and since December 2022 has been on Effexor ER 37.5 mg daily; prior to the Effexorhad been on sertraline up to 150 mg daily. Does state lately she had an argument with her son and has caused her mood to be more down than typical. Shestates she has seen multiple psychiatrists in the past and does not want any further referrals to psychiatry or therapy. Note that when her anxiety/mood has been worse, has also seem to be a trigger with worsening GI symptoms for her. She does note increased gas pains recently,has used OTC Gas-X in the past. Also used as needed Reglan previously with [facility] earlier this year, but was trying to only use very sparingly/not long-term due to side effect profile; states she does have some ofthis leftover still. Still has raw feeling in region but denies abnormal vaginal discharge or itching. No fevers/no new symptoms, but also states no improvement in symptoms as noted 03/19/2024 below. Recent urinalysis below was normal including microscopy, not concerning for UTI. Also continues to have chronic dry eye symptoms, which have apparently been ongoing since prior cataract surgery. Has tried antihistamine eyedrops in the past without significant relief. Does state recently has been using Visine eyedrops. Did try artificial tears in the past but not using recently. ==== History of UTIs: Patient called 03/27/24, stating she was concerned about possible kidney infection; endorse symptoms of dysuria, nausea, and feeling raw () for several days. Also had taken Pepto-Bismol for the nausea with associated black stools. Due to first acute appointment not being until the next day, patient advised could also go to urgent care; later that same morning patient went to ER. ER note states chief complaint of lower abdominal pain and dysuria, with symptoms going on since 03/24/2024; endorses chills but denies fever. Had endorsed being treated for UTI 2 weeks ago with antibiotics at outlying facility but states symptoms never fully resolved. Afebrile with normal vitals in the ER. Benign exam documented. Due to history of recurrent UTIs they did do laboratory workup and CT abdomen/pelvis. -CT now/pelvis without contrast notes bilateral extrarenal pelvises with an element of congenital UPJ narrowing and proximal hydronephrosis; also incidentally noted benign-appearing 7 mm right pulmonary nodule RLL likely benign with 6-month follow-up CT recommended for stability. -CBC unremarkable without leukocytosis -CMP largely unremarkable as well, normal renal function and electrolytes, normal LFTs; normal lipase -Urinalysis showed trace bacteria with 0?2 WBCs and 0-2 squamous epithelial cells on microscopy, negative nitrates, negative leukocyte esterase, no blood. She was prescribed as needed Zofran, discharged home with outpatient follow-up. === Last urology visit was 08/28/[address] Hurtado; advised as needed follow-up for further significant UTI-like symptoms. 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 She does have topical nystatin powder at home prescribed for prior yeast infections. Also has history of frequent UTIs in the past. Which has grown typically pansensitive E. coli, but also Enterococcus faecalis [resistant to erythromycin and tetracycline], small months of strep agalactiae [resistant to clindamycin, erythromycin, and tetracyclines]. Also had prior vaginal swab 10/14/2023 which did show Tyra species but was negative for BV, trichomonas, C glabrata. Note last saw [facility] May 2023, then followed up with [facility] for GI in July 2023 [will request [facility] record]; states was trialed on Linzess but discontinued due to side effects. Review of Systems Narrative Constitutional: No fevers, chills Respiratory: No cough or shortness of breath. Cardiovascular: no chest pain or dyspnea on exertion. Genito-Urinary: see as above in HPI/resolved GI: see HPI Physical Exam Narrative Exam Narrative: Constitutional: well appearing in no apparent distress at rest Eyes: EOMI , non-icteric sclera. No erythema/redness of sclera or eye, no significant drainage other than minimal clear watering of eyes. ENMT: MMM, external ear appear normal Cardiovascular: RRR, normal S1/S2, no murmurs, gallops or rubs . Psych: Mildly anxious appearing, depressed mood Assessment & Plan Assessment & Plan (1) Anxiety: Code(s): F41.9 - Anxiety disorder, unspecified Category: Medical (2) MDD (major depressive disorder), recurrent severe, without psychosis: Code(s): F33.2 - Major depressive disorder, recurrent severe without psychotic features Category: Medical (3) Congenital ureteropelvic junction obstruction: Comment: bilateral Code(s): Q62.39 - Other obstructive defects of renal pelvis and ureter Category: Medical (4) Gastroparesis: Code(s): K31.84 - Gastroparesis Category: Medical (5) Nausea: Code(s): R11.0 - Nausea Category: Medical (6) Vulvovaginal discomfort: Code(s): R10.2 - Pelvic and perineal pain (7) Vulvovaginal candidiasis: Code(s): B37.31 - Acute candidiasis of vulva and vagina (8) Dry eye syndrome: Code(s): H04.129 - Dry eye syndrome of unspecified lacrimal gland Category: Medical Qualifiers: Laterality: bilateral Qualified Code(s): H04.123 - Dry eye syndrome of bilateral lacrimal glands Plan Anxiety/depression: -She is now open to increasing her Effexor ER dose from 37.5 mg to 75 mg; discussed when on sertraline she required a higher dose and still may be helpfulto titrate up on the Effexor as well and that controlling her anxiety/depressionbetter may also help with her GI symptoms. Refilled as higher dose of 75 mg [but as 2 tabs of the 37.5 mg for now so that if patient preferring to go back down on dose can still use medication] -Refilled alprazolam; [place] reviewed and last refill was 02/29/2024 -Again strongly recommended psychiatry referral, which patient declines today symptoms/history of congenital UPJ obstruction: -Do not feel that patient has UTI at this time, so would defer antibiotics -However did discuss could treat for yeast infection with a different topical treatment, sent prescription for miconazole cream 7-day course; no prior adverseside effects to oral fluconazole. She does have nystatin powder at home as wellthat she can use as needed. GI symptoms/history of gastroparesis, nausea: -Encouraged continued follow-up with GI if symptoms continuing, discussed for next 1 to 2 days okay to take some of her remaining Reglan but not to use long-term as it does have some interactions and side effects that can worsen/interactwith her other medications; also discussed utilizing as needed OTC Gas-X/simethicone for gas pain -Discussed increasing Effexor for mood as above which may also help with GI symptoms if GI symptoms are partially aggravated by mood chronic dry eye -Recommending avoiding use of Visine, especially Visine redness relief due to risk of rebound redness/symptoms. -Recommended using artificial tears such as TheraTears or Systane regularly, discussed may have dry eyes long-term due to prior eye surgery and may benefit from using these more consistently -Discussed if increased itchiness of eyes can try antihistamine eyedrops again, but if not helpful in the past can first instead focus on the artificial tears for dry eye rather than allergies === Follow-up: Patient already has previously scheduled follow-up for 05/18/2024, daniellell keep this for now as this will be about 6 weeks after increasing Effexor dose. Patient to call sooner as needed for any new/worsening symptoms. Medications: New miconazole nitrate 2% 1 applic topical BEDTIME 30 grams 0RF 7 days B37.31 - Acute candidiasis of vulva and vagina Changed From venlafaxine ER 37.5 mg PO DAILY 90 days 90 caps 3RF NS F33.2 - Major depressive disorder, recurrent severe without psychotic features, F41.9 - Anxiety disorder, unspecified To venlafaxine ER 75 mg (2 x 37.5 mg) PO DAILY 180 caps 3RF 90 days NS F33.2 - Major depressive disorder, recurrent severe without psychotic features, F41.9 - Anxiety disorder, unspecified Refilled alprazolam 0.25 mg PO BID PRN 60 tabs 2RF anxiety 30 days F41.9 - Anxiety disorder, unspecified Patient Instructions: Eye drops to look for [id number]: - for allergies causing red or itchy eyes, try Pataday or Zaditor (these are anti-histamine eye drops) - for dry eyes, try artifical tears (such as Thera Tears or any affordable over the counter generic option; e.g. the systane) - generally avoid use of Visine Clear Eyes/Redness relief (this contains decongestant tetryzoline) as although it can decrease redness at first, it tendsto cause rebound issues/redness with frequent use after stopping use. However, Visine brand may make artificial tears and other products as well (that do NOT contain a decongestant) that may be a good option for dry eyes. Dictated By: Nicole Garcia DO 03/30/24 0756 Signed By: <Electronically signed by Nicole Garcia DO> 03/30/24 0852 Cosigned By (if applicable): [id number] cc: Nicole Garcia DO [facility] [email or web address] Work Phone: [facility] for referral (narrative)* Diagnostic Procedure Only (Routine) - Closed Specialty Diagnoses / Procedures Referred By Contac t Referred To Contact XR IMAGING Diagnoses Chronic idiopathic constipation Procedures XR ABDOMEN 1V SUPINE RADIOLOGIC EXAM ABDOMEN [address] VIEW Mihir Awan DO [address] [place] [address] [place] [address] Referral ID Status Reason Start Date Expiration Date V isits Requested Visits Authorized [id number] Closed Auto-Generate d Referral 08/16/2023 09/14/2024 1 1 [facility] for referral (narrative)* Diagnostic Procedure Only (Routine) - Closed Specialty Diagnoses / Procedures Referred By Contac t Referred To Contact XR IMAGING Diagnoses Chronic idiopathic constipation Procedures XR ABDOMEN 1V SUPINE RADIOLOGIC EXAM ABDOMEN [address] M[address] Awan DO [address] [place] [address] [place] [address] Referral ID Status Reason Start Date Expiration Date V isits Requested Visits Authorized [id number] Closed Auto-Generate d Referral 08/16/2023 09/14/2024 1 1 [facility] for visit Narrative* Diagnostic Procedure Only (Routine) - Closed Specialty Diagnoses / Procedures Referred By Contac t Referred To Contact XR IMAGING Diagnoses Chronic idiopathic constipation Procedures XR ABDOMEN 1V SUPINE RADIOLOGIC EXAM ABDOMEN [address] Awan DO [address] [place] [address] [place] [address] Referral ID Status Reason Start Date Expiration Date V isits Requested Visits Authorized [id number] Closed Auto-Generate d Referral 08/16/2023 09/14/2024 1 1 [facility] Summary Purpose Family History Relationship Condition Age at Onset Recorded Date/T marcos father Diabetes mellitus Unknown Alcohol abuse Unknown mother High blood cholesterol Unknown Advance Directives Advance Directive Response Recorded Date/ Time Advance Directives No August 24 1:55pm Advance Directive Response Recorded Date/ Time Advance Directives No March 10:10am Living Will Yes April 12 9:23am Power of Group Reservations Coordinator Yes April 12, 2023 9:23am Organ Donor No April 12 9:23am DNR- Comfort Care Arrest Yes [facility] 2022 9:23am DNR- Comfort Care Only No April 12, 2023 9:23am Advance Directive Response Recorded Date/ Time DNR- Comfort Care Only No April 12, 2023 9:23am DNR- Comfort Care Arrest Yes [facility] 2022 9:23am Advance Directive Response Recorded Date/ Time DNR- Comfort Care Only No April 12, 2023 10:23am DNR- Comfort Care Arrest Yes [facility] 2022 10:23am Advance Directive Response Recorded Date/ Time Advance Directives Yes January 16, 2024 7:37am Living Will Yes January 15 7:37am Power of Group Reservations Coordinator Yes January 15 7:37am Organ Donor No January 15 7:37am DNR- Comfort Care Arrest No January 16, 2024 7:37am DNR- Comfort Care Only No January 152023 7:37am Advance Directive Response Recorded Date/ Time Advance Directives No March 03, 2024 5:37pm Advance Directive Response Recorded Date/ Time Advance Directives Yes January 16, 2024 7:37am Living Will Yes January 15 7:37am Power of Group Reservations Coordinator Yes January 15 7:37am Organ Donor No January 15 7:37am Advance Directives No March 27, 2024 9:00am DNR- Comfort Care Arrest No March 27, 2024 9:00am DNR- Comfort Care Only No March 012023 9:00am Advance Directive Response Recorded Date/ Time Advance Directives Yes January 16, 2024 6:37am Living Will Yes January 15 6:37am Power of Group Reservations Coordinator Yes January 15 6:37am Organ Donor No January 15 6:37am Advance Directives No March 27, 2024 8:00am DNR- Comfort Care Arrest No March 27, 2024 8:00am DNR- Comfort Care Only No March 012023 8:00am Chief Complaint and Reason for Visit Chief Complaint 2 Month F/U, anxiety bladder/kidney infection R10.9 Vaginal Tenderness/Soreness 6 MONTH Osteoporosis, Postmenopausal Reason for Visit Hyperlipidemia Anxiety Atrophic vaginitis Lower back pain Lower abdominal pain Chief Complaint 2 Month F/U, anxiety bladder/kidney infection R10.9 Vaginal Tenderness/Soreness 6 MONTH Osteoporosis, Postmenopausal Prolia, DEXA Review, No PA needed Reason for Visit Hyperlipidemia Anxiety Atrophic vaginitis Lower back pain Lower abdominal pain Osteoporosis Postmenopausal Chief Complaint bladder/kidney infec tion R10.9 Vaginal Tenderness/Soreness 6 MONTH Osteoporosis, Postmenopausal Prolia, DEXA Review, No PA needed 2 months Reason for Visit Atrophic vaginitis Lower back pain Lower abdominal pain Osteoporosis Postmenopausal Diverticulosis Gastroparesis Hiatal hernia Hypothyroidism GERD (gastroesophageal reflux disease) Chief Complaint bladder/kidney infec tion R10.9 Vaginal Tenderness/Soreness 6 MONTH Osteoporosis, Postmenopausal Prolia, DEXA Review, No PA needed 2 months K57.30,K21.9,K44.9,I10,E78.5 Reason for Visit Atrophic vaginitis Lower back pain Lower abdominal pain Osteoporosis Postmenopausal Diverticulosis Gastroparesis Hiatal hernia Hypothyroidism GERD (gastroesophageal reflux disease) Chief Complaint Prolia, DEXA Review, No PA needed 2 months K57.30,K21.9,K44.9,I10,E78.5 Reason for Visit Osteoporosis Postmenopausal Diverticulosis Gastroparesis Hiatal hernia Hypothyroidism GERD (gastroesophageal reflux disease) Chief Complaint Prolia, DEXA Review, No PA needed 2 months K57.30,K21.9,K44.9,I10,E78.5 2 month f/u Reason for Visit Osteoporosis Postmenopausal Diverticulosis Gastroparesis Hiatal hernia Hypothyroidism GERD (gastroesophageal reflux disease) Chronic pain of left ankle Memory change Anxiety Chief Complaint 2 months K57.30,K21.9,K44.9,I10,E78.5 2 month f/u Memory impairment Reason for Visit Diverticulosis Gastroparesis Hiatal hernia Hypothyroidism GERD (gastroesophageal reflux disease) Chronic pain of left ankle Memory change Anxiety Chief Complaint 2 months K57.30,K21.9,K44.9,I10,E78.5 2 month f/u Memory impairment Cognitive testing Reason for Visit Diverticulosis Gastroparesis Hiatal hernia Hypothyroidism GERD (gastroesophageal reflux disease) Chronic pain of left ankle Memory change Anxiety Memory change Anxiety Chief Complaint 2 month f/u Memory impairment Cognitive testing acid reflux 6 month f/u Reason for Visit Chronic pain of left ankle Memory change Anxiety Memory change Anxiety GERD (gastroesophageal reflux disease) Chief Complaint 2 month f/u Memory impairment Cognitive testing acid reflux 6 month f/u 6-8 week f/u Reason for Visit Chronic pain of left ankle Memory change Anxiety Memory change Anxiety GERD (gastroesophageal reflux disease) Breast cancer screening by mammogram Dark stools Gastroparesis GERD (gastroesophageal reflux disease) Chief Complaint 2 month f/u Memory impairment Cognitive testing acid reflux 6 month f/u 6-8 week f/u painful urination Dysuria Reason for Visit Chronic pain of left ankle Memory change Anxiety Memory change Anxiety GERD (gastroesophageal reflux disease) Breast cancer screening by mammogram Dark stools Gastroparesis GERD (gastroesophageal reflux disease) Chief Complaint acid reflux 6 month f/u 6-8 week f/u painful urination Dysuria Prolia injection Osteoporosis Postmenopausal status Osteoporosis screening Reason for Visit GERD (gastroesophage al reflux disease) Breast cancer screening by mammogram Dark stools Gastroparesis GERD (gastroesophageal reflux disease) Dysuria Osteoporosis Postmenopausal Chief Complaint acid reflux 6 month f/u 6-8 week f/u painful urination Dysuria Prolia injection Osteoporosis Postmenopausal status Osteoporosis screening Stomach problems, feels swollen Reason for Visit GERD (gastroesophage al reflux disease) Breast cancer screening by mammogram Dark stools Gastroparesis GERD (gastroesophageal reflux disease) Dysuria Osteoporosis Postmenopausal Gastroparesis Chief Complaint acid reflux 6 month f/u 6-8 week f/u painful urination Dysuria Prolia injection Osteoporosis Postmenopausal status Osteoporosis screening Stomach problems, feels swollen 2 week f/u Reason for Visit GERD (gastroesophage al reflux disease) Breast cancer screening by mammogram Dark stools Gastroparesis GERD (gastroesophageal reflux disease) Dysuria Osteoporosis Postmenopausal Gastroparesis Chief Complaint acid reflux 6 month f/u 6-8 week f/u painful urination Dysuria Prolia injection Osteoporosis Postmenopausal status Osteoporosis screening Stomach problems, feels swollen 2 week f/u Hyperlipidemia Reason for Visit GERD (gastroesophage al reflux disease) Breast cancer screening by mammogram Dark stools Gastroparesis GERD (gastroesophageal reflux disease) Dysuria Osteoporosis Postmenopausal Gastroparesis Chief Complaint acid reflux 6 month f/u 6-8 week f/u painful urination Dysuria Prolia injection Osteoporosis Postmenopausal status Osteoporosis screening Stomach problems, feels swollen 2 week f/u Hyperlipidemia Stomach pain Reason for Visit GERD (gastroesophage al reflux disease) Breast cancer screening by mammogram Gastroparesis GERD (gastroesophageal reflux disease) Dark stools Dysuria Osteoporosis Postmenopausal Gastroparesis Gastroparesis Hypothyroidism Anxiety Chief Complaint 6 month f/u 6-8 week f/u painful urination Dysuria Prolia injection Osteoporosis Postmenopausal status Osteoporosis screening Stomach problems, feels swollen 2 week f/u Hyperlipidemia Stomach pain ER f/u Reason for Visit Breast cancer screen ing by mammogram Gastroparesis GERD (gastroesophageal reflux disease) Dark stools Dysuria Osteoporosis Postmenopausal Gastroparesis Gastroparesis Hypothyroidism Anxiety Encounter for screening for diabetes mellitus Granulomatous disease Hydronephrosis Urinary tract infection Chief Complaint 6 month f/u 6-8 week f/u painful urination Dysuria Prolia injection Osteoporosis Postmenopausal status Osteoporosis screening Stomach problems, feels swollen 2 week f/u Hyperlipidemia Stomach pain ER f/u Severe Left hydrodnephrosis, Mild Right side too Reason for Visit Breast cancer screen ing by mammogram Gastroparesis GERD (gastroesophageal reflux disease) Dark stools Dysuria Osteoporosis Postmenopausal Gastroparesis Gastroparesis Hypothyroidism Anxiety Encounter for screening for diabetes mellitus Granulomatous disease Hydronephrosis Urinary tract infection Chief Complaint Prolia injection Osteoporosis Postmenopausal status Osteoporosis screening Stomach problems, feels swollen 2 week f/u Hyperlipidemia Stomach pain ER f/u Severe Left hydrodnephrosis, Mild Right side too 3 mo f/u possible sinus infection Reason for Visit Osteoporosis Postmenopausal Gastroparesis Gastroparesis Hypothyroidism Anxiety Encounter for screening for diabetes mellitus Granulomatous disease Hydronephrosis Urinary tract infection Congenital ureteropelvic junction obstruction Urinary tract infection Dysuria Gastroparesis Chief Complaint Stomach pain ER f/u Severe Left hydrodnephrosis, Mild Right side too 3 mo f/u possible sinus infection rt eye issues, possible kidney infection? Reason for Visit Encounter for screen ing for diabetes mellitus Granulomatous disease Hydronephrosis Urinary tract infection Congenital ureteropelvic junction obstruction Urinary tract infection Dysuria Gastroparesis Acute sinusitis Bronchitis Dysuria Chief Complaint 3 mo f/u possible sinus infection rt eye issues, possible kidney infection? possible kidney infection Reason for Visit Dysuria Gastroparesis Acute sinusitis Bronchitis Dysuria Episcleritis Low back pain Recurrent UTI Chief Complaint possible sinus infec tion rt eye issues, possible kidney infection? possible kidney infection Reason for Visit Acute sinusitis Bronchitis Dysuria Episcleritis Low back pain Recurrent UTI Chief Complaint possible sinus infec tion rt eye issues, possible kidney infection? possible kidney infection 3 month Hypothyroidism Normocytic anemia 6 month f/u Reason for Visit Acute sinusitis Bronchitis Episcleritis Low back pain Recurrent UTI Dysuria Urinary frequency Normocytic anemia Anxiety Congenital ureteropelvic junction obstruction Hypothyroidism Recurrent UTI Chief Complaint rt eye issues, possi ble kidney infection? possible kidney infection 3 month Hypothyroidism Normocytic anemia 6 month f/u 1 mo f/u Reason for Visit Episcleritis Low back pain Recurrent UTI Dysuria Urinary frequency Normocytic anemia Anxiety Congenital ureteropelvic junction obstruction Hypothyroidism Recurrent UTI Abnormal renal function Allergic conjunctivitis Anxiety Bilateral tinnitus Congenital ureteropelvic junction obstruction Gastroparesis Hydronephrosis Chief Complaint rt eye issues, possi ble kidney infection? possible kidney infection 3 month Hypothyroidism Normocytic anemia 6 month f/u 1 mo f/u N28.9 Reason for Visit Episcleritis Low back pain Recurrent UTI Dysuria Urinary frequency Normocytic anemia Anxiety Congenital ureteropelvic junction obstruction Hypothyroidism Recurrent UTI Abnormal renal function Allergic conjunctivitis Anxiety Bilateral tinnitus Congenital ureteropelvic junction obstruction Gastroparesis Hydronephrosis Chief Complaint rt eye issues, possi ble kidney infection? possible kidney infection 3 month Hypothyroidism Normocytic anemia 6 month f/u 1 mo f/u N28.9 f/u [facility] testing & anxiety; former Dr. Brunner Reason for Visit Episcleritis Low back pain Recurrent UTI Dysuria Urinary frequency Normocytic anemia Anxiety Congenital ureteropelvic junction obstruction Hypothyroidism Recurrent UTI Abnormal renal function Allergic conjunctivitis Anxiety Bilateral tinnitus Congenital ureteropelvic junction obstruction Gastroparesis Hydronephrosis Anxiety Chief Complaint osteoporosis rt eye issues, possible kidney infection? possible kidney infection 3 month Hypothyroidism Normocytic anemia 6 month f/u 1 mo f/u N28.9 f/u [facility] testing & anxiety; former Dr. Brunner Reason for Visit Episcleritis Low back pain Recurrent UTI Dysuria Urinary frequency Normocytic anemia Anxiety Congenital ureteropelvic junction obstruction Hypothyroidism Recurrent UTI Abnormal renal function Allergic conjunctivitis Anxiety Bilateral tinnitus Congenital ureteropelvic junction obstruction Gastroparesis Hydronephrosis Anxiety Chief Complaint osteoporosis possible kidney infection 3 month Hypothyroidism Normocytic anemia 6 month f/u 1 mo f/u N28.9 f/u [facility] testing & anxiety; former Dr. Brunner Review DEXA Scan/VFA/TBS , PROLIA, NO PA Needed Reason for Visit Urinary frequency Normocytic anemia Anxiety Congenital ureteropelvic junction obstruction Hypothyroidism Recurrent UTI Abnormal renal function Allergic conjunctivitis Anxiety Bilateral tinnitus Congenital ureteropelvic junction obstruction Gastroparesis Hydronephrosis Anxiety Postmenopausal Osteoporosis Chief Complaint osteoporosis 1 mo f/u N28.9 f/u [facility] testing & anxiety; former Dr. Brunner Review DEXA Scan/VFA/TBS , PROLIA, NO PA Needed Stomach, headache nausea Reason for Visit Abnormal renal funct ion Allergic conjunctivitis Anxiety Bilateral tinnitus Congenital ureteropelvic junction obstruction Gastroparesis Hydronephrosis Anxiety Postmenopausal Osteoporosis Chief Complaint 3 month f/u Screening/patient request Reason for Visit Dry eyes, bilateral MDD (major depressive disorder), recurrent severe, without psychosis Anxiety Gastroparesis GERD (gastroesophageal reflux disease) Diffuse abdominal pain Chief Complaint 3 month f/u Screening/patient request Stomach Pain, Possible Kidney Infection constipation, r/o bowel obstruction Reason for Visit Dry eyes, bilateral MDD (major depressive disorder), recurrent severe, without psychosis Anxiety Gastroparesis GERD (gastroesophageal reflux disease) Diffuse abdominal pain Dysuria Constipation Chief Complaint Screening/patient re quest Stomach Pain, Possible Kidney Infection constipation, r/o bowel obstruction 3 Month Reason for Visit Dysuria Constipation UTI (urinary tract infection) Chief Complaint Screening/patient re quest Stomach Pain, Possible Kidney Infection constipation, r/o bowel obstruction 3 Month Reason for Visit Dysuria Constipation Anxiety Gastroparesis UTI (urinary tract infection) Chief Complaint Screening/patient re quest Stomach Pain, Possible Kidney Infection constipation, r/o bowel obstruction 3 Month PROLIA, REVIEW LABS, NO PA NEEDED Reason for Visit Dysuria Constipation Anxiety Gastroparesis UTI (urinary tract infection) Postmenopausal Osteoporosis Chief Complaint Screening/patient re quest Stomach Pain, Possible Kidney Infection constipation, r/o bowel obstruction 3 Month PROLIA, REVIEW LABS, NO PA NEEDED Possible Kidney Infection Reason for Visit Dysuria Constipation Anxiety Gastroparesis UTI (urinary tract infection) Postmenopausal Osteoporosis Yeast infection involving the vagina and surrounding area Chief Complaint Screening/patient re quest Stomach Pain, Possible Kidney Infection constipation, r/o bowel obstruction 3 Month PROLIA, REVIEW LABS, NO PA NEEDED Possible Kidney Infection Acute vaginitis Symptoms of urinary tract infectio Reason for Visit Dysuria Constipation Anxiety Gastroparesis UTI (urinary tract infection) Postmenopausal Osteoporosis Acute vaginitis Yeast infection involving the vagina and surrounding area Bloating Constipation Chief Complaint PROLIA, REVIEW LABS, NO PA NEEDED Possible Kidney Infection Acute vaginitis Symptoms of urinary tract infectio 3 months Reason for Visit Postmenopausal Osteoporosis Acute vaginitis Yeast infection involving the vagina and surrounding area Bloating Constipation Chief Complaint Possible Kidney Infe ction Acute vaginitis Symptoms of urinary tract infectio 3 months Poss. yeast inf. & bladder or kidney infection Reason for Visit Acute vaginitis Yeast infection involving the vagina and surrounding area Bloating Constipation Chronic idiopathic constipation MDD (major depressive disorder), recurrent severe, without psychosis Anxiety Yeast dermatitis Chief Complaint Possible Kidney Infe ction Acute vaginitis Symptoms of urinary tract infectio 3 months Poss. yeast inf. & bladder or kidney infection Frequent urinary tract infections Low Back Pain Reason for Visit Acute vaginitis Yeast infection involving the vagina and surrounding area Bloating Constipation Chronic idiopathic constipation MDD (major depressive disorder), recurrent severe, without psychosis Anxiety Yeast dermatitis Chronic right-sided low back pain with right-sided sciatica UTI (urinary tract infection) Vulvovaginitis due to yeast Chief Complaint Admit Date 3 months November 17, 2023 2:33 pm Poss. yeast inf. & bladder or kidney inf ection December 03, 2023 10:55am Frequent urinary tract infections Low Ba ck Pain December 03, 2023 1:11pm Possible UTI, Nausea January 16, 2024 7 :28am Reason for Visit Admit Date Chronic idiopathic constipation October 2:33pm MDD (major depressive disord er), recurrent severe, without psychosis November 17, 2023 2:33pm Anxiety November 17, 2023 2:33 pm Yeast dermatitis November 17, 2023 2:33 pm Chronic right-sided low back pain with r ight-sided sciatica December 03, 2023 10:55am UTI (urinary tract infection) December 03, 2023 10:55am Vulvovaginitis due to yeast December 02 10:55am Chief Complaint Admit Date Poss. yeast inf. & bladder or kidney inf ection December 03, 2023 10:55am Frequent urinary tract infections Low Ba ck Pain December 03, 2023 1:11pm Possible UTI, Nausea January 16, 2024 7 :28am UC F/U; UTI January 24, 2024 2: 15pm Rt. shoulder pain February 17, 2024 2:22pm Burning with urination February 16 024 2:53pm Reason for Visit Admit Date Chronic right-sided low back pain with right-sided sciatica December 03, 2023 10:55am UTI (urinary tract infection) December 03, 2023 10:55am Vulvovaginitis due to yeast December 02 10:55am Acute UTI (urinary tract infection) Augu 2023 2:15pm Senile purpura January 24, 2024 2: 15pm Anxiety January 24, 2024 2: 15pm Psoriasis January 24, 2024 2: 15pm Anxiety February 17, 2024 2:22pm Gastroparesis February 17, 2024 2:22pm GERD (gastroesophageal reflux disease) S eptember 2023 2:22pm Dysuria February 17, 2024 2:22pm Abdominal bloating February 17, 2024 2:22pm Chief Complaint Poss uti Chief Complaint Admit Date Possible UTI, Nausea January 16, 2024 7 :28am UC F/U; UTI January 24, 2024 2: 15pm Rt. shoulder pain February 17, 2024 2:22pm Burning with urination February 16, 024 2:53pm Prolia, No PA needed February 27 10:08am Reason for Visit Admit Date Acute UTI (urinary tract infection) Augu 2023 2:15pm Senile purpura January 24, 2024 2: 15pm Anxiety January 24, 2024 2: 15pm Psoriasis January 24, 2024 2: 15pm Anxiety February 17, 2024 2:22pm Gastroparesis February 17, 2024 2:22pm GERD (gastroesophageal reflux disease) S eptember 2023 2:22pm Dysuria February 17, 2024 2:22pm Abdominal bloating February 17, 2024 2:22pm Chief Complaint Admit Date Possible UTI, Nausea January 16, 2024 7 :28am UC F/U; UTI January 24, 2024 2: 15pm Rt. shoulder pain February 17, 2024 2:22pm Burning with urination February 16 024 2:53pm Prolia, No PA needed February 27 10:08am Sick to stomach, baez when urinating Oc tober 2023 8:41am Reason for Visit Admit Date Acute UTI (urinary tract infection) Augu st 2023 2:15pm Senile purpura January 24, 2024 2: 15pm Anxiety January 24, 2024 2: 15pm Psoriasis January 24, 2024 2: 15pm Anxiety February 17, 2024 2:22pm Gastroparesis February 17, 2024 2:22pm GERD (gastroesophageal reflux disease) S eptemb2023 2:22pm Dysuria February 17, 2024 2:22pm Abdominal bloating February 17, 2024 2:22pm Postmenopausal February 28, 2024 10:08am Osteoporosis February 28, 2024 10:08am Chief Complaint Admit Date Possible UTI, Nausea January 16, 2024 7 :28am UC F/U; UTI January 24, 2024 2: 15pm Rt. shoulder pain February 17, 2024 2:22pm Burning with urination February 16 024 2:53pm Prolia, No PA needed February 27 10:08am Sick to stomach, baez when urinating Oc tober 2023 8:41am ER Follow Up March 30, 2024 7 :52am Additional Source Comments INFORMATION SOURCE (unrecogn ized section and content) DATE CREATED AUTHOR 08/04/2020 [facility] DATE CREATED AUTHOR AUTHOR'S ORGANIZ ATION 08/21/2023 [facility] DATE CREATED AUTHOR AUTHOR'S ORGANIZ ATION 08/25/2023 [facility] DATE CREATED AUTHOR AUTHOR'S ORGANIZ ATION 04/03/2024 [facility] Care Teams (unrecognized sec tion and content) Team Status: Active Member Role Status Dates Myrna Alvarenga , DO Primary Care Provider Active Team Status: Inactive Member Role Status Dates Myrna Alvarenga , DO Primary Care Provider, Attending Estiven foster Active Team Status: Inactive Member Role Status Dates Myrna Cody Tone , DO Primary Care Provider Active Leonidas Sanchez , DO Attending Provider Active Team Status: Inactive Member Role Status Dates Myrna Alvarenga , DO Primary Care Provider Active Andra S Adrian , DO Attending Provider Active Team Status: Inactive Member Role Status Dates Myrna Alvarenga , DO Primary Care Provider Active CHIKIS Monique Attending Provider Active Team Status: Inactive Member Role Status Dates Myrna Alvarenga , DO Primary Care Provider Active CHIKIS Conner Attending Provider Active Team Status: Active Member Role Status Dates Nathanael Brunner , DO Primary Care Provider Active Team Status: Inactive Member Role Status Dates CHIKIS Conner Attending Provider Active Nathanael Brunner , DO Primary Care Provider Active Team Status: Inactive Member Role Status Dates Nathanael Brunner , DO Primary Care Provider, Attendin g Provider Active Team Status: Inactive Member Role Status Dates Andra S Adrian , DO Attending Provider Active Nathanael Brunner , DO Primary Care Provider Active Team Status: Inactive Member Role Status Dates Nathanael Brunner , DO Primary Care Provider Active CHIKIS Reyez Attending Provider Active Team Status: Inactive Member Role Status Dates Nathanael Brunner , DO Primary Care Provider Active CATHY Almazan Attending Provider Active Team Status: Active Member Role Status Dates Nathanael Brunner , Primary Care Provider Active CATHY Almazan Attending Provider Active Team Status: Inactive Member Role Status Dates Nathanael Brunner , DO Primary Care Provider Active CHIKIS Conner Attending Provider Active Team Status: Inactive Member Role Status Dates Nathanael Brunner , DO Primary Care Provider Active Kristine Benedict MD Attending Provider Active Team Status: Inactive Member Role Status Dates Nathanael Brunner , DO Primary Care Provider Active Ricky Singh MD Emergency Provider Active Team Status: Inactive Member Role Status Dates Nathanael Brunner , DO Primary Care Provider Active Lion Hurtado MD Attending Provider Active Team Status: Inactive Member Role Status Dates Nathanael Brunner , DO Primary Care Provider Active Ricky Singh MD Emergency Provider Active Olga Peterson CNP Other Provider Active Team Status: Inactive Member Role Status Dates Nathanael Brunner , DO Primary Care Provider Active Urgent Care Provider Attending Provider Active Team Status: Active Member Role Status Dates Nathanael Brunner , DO Primary Care Provider Active Kristine Benedict MD Attending Provider Active Team Status: Inactive Member Role Status Dates Nathanael Brunner , DO Primary Care Provider Active Urgent Care Provider Active Kristine Benedict MD Attending Provider Active Team Status: Inactive Member Role Status Dates Nathanael Brunner , DO Primary Care Provider Active Andra Campbell , DO Attending Provider Active Team Status: Active Member Role Status Dates Nicole Garcia , DO Primary Care Provider Active Team Status: Inactive Member Role Status Dates Nicole Garcia , DO Primary Care Provider, Attendin g Provider Active Team Status: Inactive Member Role Status Dates CHIKIS Conner Attending Provider Active Nicole Garcia , DO Primary Care Provider Active Team Status: Inactive Member Role Status Dates Nicole Garcia , DO Primary Care Provider Active Ricky Singh MD Emergency Provider Active Team Status: Active Member Role Status Dates Taty Noble CNP Gastroenterology Active Nicole Garcia , DO Primary Care Provider Active Team Status: Inactive Member Role Status Dates Nicole Garcia , DO Primary Care Provider Active CHIKIS Conner Attending Provider Active Team Status: Inactive Member Role Status Dates Nicole Garcia , DO Primary Care Provider Active CHIKIS Velasco Attending Provider Active Team Status: Active Member Role Status Dates Nicole Garcia , DO Primary Care Provider Active CHIKIS Velasco Attending Provider Active Label Printer Relationship Specialty Start Date End Date Taty Noble CNP [address] [address] Referring Family Medicine 06/10/23 Label Printer Relationship Specialty Start Date End Date Taty Noble CNP [address] [address] Referring Family Medicine 06/10/23 Label Printer Relationship Specialty Start Date End Date Kristanmegandilan TatyEMILY [address] [facility] [address] [place] [address] Referring Family Medicine 06/10/23 Label Printer Relationship Specialty Start Date End Date Renetta NobleniferEMILY [address] [facility] [address] [place] [address] Referring Family Medicine 06/10/23 Label Printer Relationship Specialty Start Date End Date Renetta NobleniferEMILY [address] [facility] [address] [place] [address] Referring Family Medicine 06/10/23 Label Printer Relationship Specialty Start Date End Date Renetta NobleniferEMILY [address] [facility] [address] [place] [address] Referring Family Medicine 06/10/23 Label Printer Relationship Specialty Start Date End Date Padmajadilan TatyEMILY [address] [facility] [address] [place] [address] Referring Family Medicine 06/10/23 Team Status: Inactive Member Role Status Dates Nicole Garcia DO Primary Care Prov ider, Attending Provider Active Start: August 02, 2023 End: August 02, 2023 Team Status: Inactive Member Role Status Dates Nicole Garcia DO Primary Care Provider Active Start: August 02, 2023 End: August 02, 2023 CHIKIS Conner Attending Provider Active Sta rt: August 02, 2023 End: August 02, 2023 Team Status: Inactive Member Role Status Dates Nicole Garcia DO Primary Care Provider Active Start: August 03, 2023 End: August 03, 2023 CHIKIS Velasco Attending Provider Active Start: August 03, 2023 End: August 03, 2023 Team Status: Inactive Member Role Status Dates Nicole A Barga , DO Primary Care Prov ider, Attending Provider Active Start: August 13, 2023 End: August 13, 2023 Team Status: Inactive Member Role Status Dates Nicole A Barga , DO Primary Care Provider Active Start: August 26, 2023 End: August 26, 2023 CHIKIS Conner Attending Provider Active Sta rt: August 26, 2023 End: August 26, 2023 Team Status: Inactive Member Role Status Dates Nicole A Barga , DO Primary Care Provider Active Start: October 14, 2023 End: October 14, 2023 Meera Pittman NP Attending Provider Active Sta rt: October 14, 2023 End: October 14, 2023 Team Status: Inactive Member Role Status Dates Nicole A Barga , DO Primary Care Prov ider, Attending Provider Active Start: November 17, 2023 End: November 17, 2023 Team Status: Inactive Member Role Status Dates Nicole A Barga , DO Primary Care Prov ider, Attending Provider Active Start: December 03, 2023 End: December 03, 2023 Team Status: Inactive Member Role Status Dates Nicole A Barga , DO Primary Care Provider Active Start: January 16, 2024 End: January 16, 2024 Meena Dallas DO Emergency Provider Active Start: January 16, 2024 End: January 16, 2024 Team Status: Active Member Role Status Dates Taty Noble CNP Gastroenterology Active Lion Hurtado MD Urology Active Nicole A Ildefonsoga , DO Primary Care Provider Active Team Status: Inactive Member Role Status Dates Nicole A Barga , DO Primary Care Prov ider, Attending Provider Active Start: January 24, 2024 End: January 24, 2024 Team Status: Inactive Member Role Status Dates Nicole A Barga , DO Primary Care Prov ider, Attending Provider Active Start: February 17, 2024 End: February 17, 2024 Team Status: Active Member Role Status Dates NON STAFF Primary Care Provider Active Team Status: Inactive Member Role Status Dates Mikayla Tony APRN Attending Provider Active Start: March 03, 2024 End: March 03, 2024 NON STAFF Primary Care Provider Active Start: March 03, 2024 End: March 03, 2024 Team Status: Inactive Member Role Status Dates Nicole Gacria DO Primary Care Provider Active Start: February 28, 2024 End: February 28, 2024 CHIKIS Conner Attending Provider Active Sta rt: February 28, 2024 End: February 28, 2024 Team Status: Inactive Member Role Status Dates Nicole Garcia DO Primary Care Provider Active Start: March 27, 2024 End: March 27, 2024 Hugh Julian MD Emergency Provider Active Star t: March 27, 2024 End: March 27, 2024 Team Status: Inactive Member Role Status Dates Nicole Garcia DO Primary Care Prov ider, Attending Provider Active Start: March 30, 2024 End: March 30, 2024 Goals (unrecognized section and content) Goals may be documented in a n alternate sectionGoals may be documented in an alternate sectionGoals may be documented in an alternate sectionGoals may be documented in an alternate sectionGoals may be documented in an alternate sectionGoals may be documented in an alternate sectionGoals may be documented in an alternate sectionGoals may be documented in an alternate sectionGoals may be documented in an alternate sectionGoals may be documented in an alternate sectionGoals may be documented in an alternate sectionGoals may be documented in an alternate sectionGoals may be documented in an alternate sectionGoals may be documented in an alternate sectionGoals may be documented in an alternate sectionGoals may be documented in an alternate sectionGoals may be documented in an alternate sectionGoals may be documented in an alternate sectionGoals may be documented in an alternate sectionGoals may be documented in an alternate sectionGoals may be documented in an alternate sectionGoals may be documented in an alternate sectionGoals may be documented in an alternate sectionGoals may be documented in an alternate sectionGoals may be documented in an alternate sectionGoals may be documented in an alternate sectionGoals may be documented in an alternate sectionGoals may be documented in an alternate sectionGoals may be documented in an alternate sectionGoals may be documented in an alternate sectionGoals may be documented in an alternate sectionGoals may be documented in an alternate sectionGoals may be documented in an alternate sectionGoals may be documented in an alternate sectionGoals may be documented in an alternate sectionGoals may be documented in an alternate section Source Comments (unrecognize d section and content) In the event this informatio n is protected by the Federal Confidentiality of Alcohol and Drug Abuse Patient Records regulations: The Federal rules restrict any use of the information to criminally investigate or prosecute any alcohol or drug abuse patient.[facility] HospitalIn the event this information is protected by the Federal Confidentiality of Alcohol and Drug Abuse Patient Records regulations: The Federal rules restrict any use of the information to criminally investigate or prosecute any alcohol or drug abuse patient.[facility] HospitalIn the event this information is protected by the Federal Confidentiality of Alcohol and Drug Abuse Patient Records regulations: The Federal rules restrict any use of the information to criminally investigate or prosecute any alcohol or drug abuse patient.[facility] HospitalIn the event this information is protected by the Federal Confidentiality of Alcohol and Drug Abuse Patient Records regulations: The Federal rules restrict any use of the information to criminally investigate or prosecute any alcohol or drug abuse patient.[facility] HospitalIn the event this information is protected by the Federal Confidentiality of Alcohol and Drug Abuse Patient Records regulations: The Federal rules restrict any use of the information to criminally investigate or prosecute any alcohol or drug abuse patient.[facility] HospitalIn the event this information is protected by the Federal Confidentiality of Alcohol and Drug Abuse Patient Records regulations: The Federal rules restrict any use of the information to criminally investigate or prosecute any alcohol or drug abuse patient.[facility] HospitalIn the event this information is protected by the Federal Confidentiality of Alcohol and Drug Abuse Patient Records regulations: The Federal rules restrict any use of the information to criminally investigate or prosecute any alcohol or drug abuse patient.[facility] HospitalIn the event this information is protected by the Federal Confidentiality of Alcohol and Drug Abuse Patient Records regulations: The Federal rules restrict any use of the information to criminally investigate or prosecute any alcohol or drug abuse patient.[facility] Reason for Visit (unrecogniz ed section and content) Reason Comments Care Coordination Gastroparesis clinic : chart review; new patient call - no answer. Reason Comments Gastroparesis Gastroparesis Reason Comments Consult Reason Comments EGG RESULTS FOR RECORDS PERTAINING TO PATIENTS WHO ARE OR HAVE BEEN ENROLLED IN A CHEMICAL DEPENDENCY/SUBSTANCEABUSE PROGRAM, SOME INFORMATION MAY BE OMITTED. This clinical summary was aggregated from multiple sources. Caution should be exercised in using it in the provision of clinical care. This summary normalizes information from multiple sources, and as a consequence, information in this document may materially change the coding, format and clinical context of patient data. In addition, data may be omitted in some cases. CLINICAL DECISIONS SHOULD BE BASED ON THE PRIMARY CLINICAL RECORDS. [facility]. provides no warranty or guarantee of the accuracy or completeness of information in this document.
--- NOTE | 2024-04-23 11:43 | ECG_ITS ---
[facility] Test Date: 2024-04-23 Pat Name: SHERRY SEXTON Department: Room: - Gender: Female Transmission Worker: : 1945 Requested By: Order Number: [id number] Reading MD: RUBINA ORTEZ Measurements Intervals [place] Rate: 73 P: 32 [place]: 162 QRS: 32 QRSD: 76 T: 193 QT: 408 QTc: 434 Interpretive Statements 1100 Sinus rhythm [address] depression Chronic, diffuse T wave inversion, can't exclude ischemia 9150 abnormal ECG Compared to ECG 04/16/2023 08:20:03 No significant changes Electronically Signed On 04-24-2024 6:53:43 EST by RUBINA ORTEZ
--- NOTE | 2024-04-23 11:43 | XR_ITS ---
The [address] [address] Patient Name: SHERRY SEXTON MRN: [id number] date: 1945 Sex: F Assigned Patient Location: ER Current Patient Location: ER Accession/Order Number: [id number] Exam Date: 04/23/2024 12:00 Report Date: 04/23/2024 12:43 At the request of: RUBY JONAS Procedure: XR chest 1V EXAM: XR chest 1V INDICATION: Weakness. COMPARISON: 04/16/2023. TECHNIQUE: Single frontal view of the chest FINDINGS: Enlarged cardiac silhouette. Normal pulmonary vasculature. No focal consolidation. No pleural effusion or pneumothorax. No acute osseous abnormality. XR/XR chest 1V IMPRESSION: No acute cardiopulmonary process. Electronically authenticated by: SUBHASH HARKINS Date: 04/23/2024 12:43
--- NOTE | 2024-04-23 11:44 | ED.GENADUL1 ---
HPI HPI - General Adult General Chief complaint: Weakness Stated complaint: WEAKNESS Time Seen by Provider: 04/23/24 11:30 Source: patient Mode of arrival: walk-in Limitations: no limitations History of Present Illness HPI narrative: 78-year-old female presents for 3-day history of feeling weak. 2 days ago she went to an urgent care and was diagnosed with a UTI and was put on Macrobid. She states her mouth feels dry. No vomiting but she has been nauseous. No diarrhea or fever. She is not complaining of chest pain or cough or shortness of breath. Related Data Home Medications ?Medication ?Instructions ?Recorded ?Confirmed pantoprazole 40 mg tablet,delayed 40 mg PO DAILY 04/16/23 04/23/24 release rosuvastatin 40 mg tablet 40 mg PO DAILY 04/16/23 04/23/24 venlafaxine 37.5 mg 37.5 mg PO BID 04/16/23 04/23/24 capsule,extended release 24 hr alprazolam 0.25 mg tablet 0.25 mg PO BID PRN anxiety 04/23/24 04/23/24 Previous Rx's ?Medication ?Instructions ?Recorded nitrofurantoin 100 mg PO BID 5 days #10 caps 04/16/23 monohydrate/macrocrystals 100 mg capsule (Macrobid) cephalexin 500 mg capsule 500 mg PO TID 7 days #21 caps 04/23/24 Allergies Allergy/AdvReac Type Severity Reaction Status Date / Time bee venom protein (honey bee) Allergy Swelling Verified 04/16/23 08:03 of Lip/Tongue/Throat moxifloxacin (From Avelox) Allergy Swelling Verified 04/16/23 08:03 of Lip/Tongue/Throat acetaminophen (From Percocet) AdvReac Headache Verified 04/16/23 08:02 albuterol AdvReac Headache Verified 04/16/23 08:02 calcium AdvReac Vomiting Verified 04/16/23 08:02 doxycycline AdvReac Verified 04/16/23 08:02 fluconazole (From Diflucan) AdvReac Headache Verified 04/16/23 08:02 hydrocodone (From Vicodin) AdvReac Vomiting Verified 04/16/23 08:03 Iodinated Contrast Media AdvReac burining Verified 04/16/23 08:02 skin oxycodone (From Percocet) AdvReac Headache Verified 04/16/23 08:02 Penicillins AdvReac Hives Verified 04/16/23 08:02 Opioid HPI Opioid Management Most Recent Opioid Data: Last Pain Scale 4 04/23/24 12:00 04/23/24 Last ED Pain Assessment 04/23/24 12:00 Review of Systems ROS Narrative A ten point review of systems is negative except as noted above. Exam Narrative Exam Narrative: Nurses note and vital signs reviewed and patient is not hypoxic. General: The patient appears in no apparent distress. Patient is resting on cart. Skin: Warm, dry, no pallor noted. There is no rash noted. Head: Normocephalic, atraumatic Eye: Normal conjunctiva, no drainage Ears, Nose, Mouth, and Throat: oral mucosa is moist. Nares patent. Cardiovascular: Regular Rate and Rhythm Respiratory: Patient is in no distress, no accessory muscle use, lungs are clear to auscultation, no wheezing, rales or rhonchi Back: non-tender GI: Soft and nontender Musculoskeletal: The patient has no evidence of calf tenderness, no pitting edema, symmetrical pulses noted bilaterally Neurological: A&O, normal speech Psychiatric: Cooperative Constitutional Vital Signs, click to edit/add: Last Vital Signs Temp 97.4 F L 04/23/24 11:31 Pulse 79 04/23/24 12:50 Resp 31 H 04/23/24 12:50 BP 158/105 H 04/23/24 12:03 Pulse Ox 94 L 04/23/24 12:50 O2 Del Method Room Air 04/23/24 11:31 Course Vital Signs Vital signs: Vital Signs Temperature 97.4 F L 04/23/24 11:31 Pulse Rate 83 04/23/24 11:31 Respiratory Rate 20 04/23/24 11:31 Blood Pressure 179/67 H 04/23/24 11:31 Pulse Oximetry 97 04/23/24 11:31 Oxygen Delivery Method Room Air 04/23/24 11:31 Temperature 97.4 F L 04/23/24 11:31 Pulse Rate 79 04/23/24 12:50 Respiratory Rate 31 H 04/23/24 12:50 Blood Pressure 158/105 H 04/23/24 12:03 Pulse Oximetry 94 L 04/23/24 12:50 Oxygen Delivery Method Room Air 04/23/24 11:31 Medical Decision Making MDM Narrative Medical decision making narrative: Her BUN is elevated out of proportion to the creatinine and my clinical impression is that she is mildly dehydrated. She was given IV fluids and feels improved. She also feels that she is having side effects from the Macrobid so we will discontinue the Macrobid and she will be started on Keflex instead. She has taken Keflex in the past without difficulty. Treatment diagnosis and follow-up were discussed with the patient and her . Differential Diagnosis Differential Diagnosis: Dehydration, acute kidney injury, medication side effect Lab Data Lab results reviewed: Yes I reviewed the patient's lab results Labs: Lab Results 04/23/24 04/23/24 04/23/24 Range/Units 11:45 12:05 13:20 WBC 7.3 (4.0-11.0) 10^3/uL RBC 4.32 (4.20-5.40) 10^6/uL Hgb 12.6 (12.0-16.0) g/dL Hct 37.1 (36.0-48.0) % MCV 85.9 (81.0-99.0) fL MCH 29.2 (26.7-34.0) pg MCHC 34.0 (29.9-35.2) g/dL RDW 13.1 (11.0-15.0) % Plt Count 141 L (150-450) 10^3/uL MPV 10.3 (9.5-13.5) fL Neut % (Auto) 77.6 H (43.0-75.0) % Lymph % (Auto) 14.0 L (20.5-60.0) % Marshall % (Auto) 7.7 (1.7-12.0) % Eos % (Auto) 0.0 L (0.9-7.0) % Baso % (Auto) 0.3 (0.2-2.0) % Neut # (Auto) 5.7 (1.4-6.5) 10^3/uL Lymph # (Auto) 1.0 L (1.2-3.8) 10^3/uL Marshall # (Auto) 0.6 (0.3-0.8) 10^3/uL Eos # (Auto) 0.0 (0.0-0.7) 10^3/uL Baso # (Auto) 0.0 (0.0-0.1) 10^3/uL Abs Immat Gran (auto) 0.03 (0.00-0.03) 10^3/uL Imm/Tot Granulo (auto) 0.4 (0.0-0.5) % Sodium 137 (136-145) mmol/L Potassium 4.0 (3.5-5.1) mmol/L Chloride 102 (98-107) mmol/L Carbon Dioxide 23.1 (21.0-32.0) mmol/L Anion Gap 15.9 BUN 21.0 H (7.0-18.0) mg/dL Creatinine 1.07 H (0.55-1.02) mg/dL Est GFR ( Amer) 60 (>=60 mL/min/1.73m^2) Est GFR (Non-Af Amer) 49 L (>=60 mL/min/1.73m^2) BUN/Creatinine Ratio 19.6 Glucose 145 H (74-106) mg/dL Calcium 8.6 (8.5-10.1) mg/dL Troponin I High Sens 12.2 (4.0-51.3) pg/mL Urine Color Yellow (YELLOW) Urine Clarity Clear (CLEAR) Urine pH 6.0 (5.0-9.0) Ur Specific [place] 1.020 (1.005-1.025) Urine Protein 30 A (NEG/TRACE) mg/dL Urine Glucose (UA) Negative (NEGATIVE) mg/dL Urine Ketones Negative (NEGATIVE) mg/dL Urine Occult Blood Negative (NEGATIVE) Urine Nitrite Negative (NEGATIVE) Urine Bilirubin Negative (NEGATIVE) Urine Urobilinogen 0.2 (0.2-1.0) EU/dL Ur Leukocyte Esterase Small A (NEGATIVE) Urine RBC 0-2 (0-2) #/HPF Urine WBC 5-10 A (NONE SEEN) #/HPF Ur Squamous Epith Cells Few A (NONE/RARE) #/LPF Ur Renal Epithelial Cell Rare A (NONE SEEN) #/LPF Urine Crystals None seen (None Seen) #/HPF Urine Bacteria Trace A (NONE SEEN) #/HPF Urine Casts None seen (NONE SEEN) #/LPF Urine Mucus Trace A (NONE SEEN) Influenza Type A Ag Negative Influenza Type B Ag Negative SARS-CoV-2 Ag (CV2AG) Negative (NEGATIVE) ECG Data Attestation: I personally reviewed and interpreted this ECG as follows: (EKG on my interpretation shows sinus rhythm with a rate of 73) Discharge Plan Discharge Chief Complaint: Weakness Clinical Impression: Dehydration, Medication side effect Patient Disposition: Home, Self-Care Time of Disposition Decision: 13:54 Condition: Good Mode of Transportation: Private Vehicle Prescriptions / Home Meds: New cephalexin 500 mg capsule 500 mg PO TID 7 Days Qty: 21 0RF No Action alprazolam 0.25 mg tablet 0.25 mg PO BID PRN (Reason: anxiety) pantoprazole 40 mg tablet,delayed release (DR/EC) 40 mg PO DAILY rosuvastatin 40 mg tablet 40 mg PO DAILY venlafaxine 37.5 mg capsule,extended release 24hr 37.5 mg PO BID nitrofurantoin monohyd/m-cryst [Macrobid] 100 mg capsule 100 mg PO BID 5 Days Qty: 10 0RF Patient Comments: 04/21/24-04/25/24 Rx Instructions: must administer with a meal/food Print Language: Bulgarian Instructions: Dehydration (ED), Adverse Drug Reaction (ED) Additional Instructions: Discontinue the Macrobid. Referrals: Physician,Non-Staff, MD [Primary Care Provider] - 1 week
[2024-04-23] MEDS: 0.9 % SODIUM CHLORIDE 500 ML IV (11:57)
[2024-04-23 11:58] LABS: Basophils Percent Auto 0.3 % (0.2-2.0); Hematocrit 37.1 % (36.0-48.0); Hemoglobin 12.6 g/dL (12.0-16.0); Immature Granulocytes Abs Auto 0.03 10^3/uL (0.00-0.03); Immature Granulocytes Pct Auto 0.4 % (0.0-0.5); Mean Corpuscular Hemoglobin 29.2 pg (26.7-34.0); Mean Corpuscular Volume 85.9 fL (81.0-99.0); Mean Platelet Volume 10.3 fL (9.5-13.5); Monocytes Absolute Auto 0.6 10^3/uL (0.3-0.8); Monocytes Percent Auto 7.7 % (1.7-12.0); Neutrophils Absolute Auto 5.7 10^3/uL (1.4-6.5); Neutrophils Percent Auto 77.6 % (43.0-75.0); Platelet Count 141 10^3/uL (150-450); Red Blood Count 4.32 10^6/uL (4.20-5.40); Red Cell Distribution Width 13.1 % (11.0-15.0); White Blood Count 7.3 10^3/uL (4.0-11.0)
[2024-04-23] MEDS: ONDANSETRON PF 4 MG/2 ML VIAL IV (11:59)
[2024-04-23 12:08] LABS: Anion Gap 15.9; BUN Creatinine Ratio 19.6; Calcium 8.6 mg/dL (8.5-10.1); Carbon Dioxide 23.1 mmol/L (21.0-32.0); Chloride 102 mmol/L (98-107); Estimated GFR (African America 60 (>=60 mL/min/1.73m^2); Estimated GFR (Non-African Ame 49 (>=60 mL/min/1.73m^2); Glucose 145 mg/dL (74-106); Sodium 137 mmol/L (136-145)
[2024-04-23 12:16] LABS: Troponin I High Sensitivity 12.2 pg/mL (4.0-51.3)
[2024-04-23 13:04] LABS: Internal Control Within Normal Limits; SARS-CoV-2 Ag NEGATIVE (NEGATIVE)
[2024-04-23 13:06] LABS: Influenza Virus A Antigen Negative; Influenza Virus B Antigen Negative; Internal Control Within Normal Limits
[2024-04-23 13:33] LABS: Bilirubin Urine NEGATIVE (NEGATIVE); Blood Urine NEGATIVE (NEGATIVE); Clarity Urine CLEAR (CLEAR); Color Urine YELLOW (YELLOW); Glucose Urine UA NEGATIVE (NEGATIVE); Ketones Urine NEGATIVE (NEGATIVE); Leukocyte Esterase Urine SMALL (NEGATIVE); Nitrite Urine NEGATIVE (NEGATIVE); Protein Urine 30 mg/dL (NEG/TRACE); Urobilinogen Urine 0.2 EU/dL (0.2-1.0)
[2024-04-23 13:45] LABS: Bacteria Urine TRACE #/HPF (NONE SEEN); Crystals Seen? None Seen #/HPF (None Seen); Mucus Urine TRACE (NONE SEEN); RBC Urine 0-2 #/HPF (0-2); Squamous Epithelial Cell Urine FEW #/LPF (NONE/RARE)
[2024-04-23 13:46] LABS: Cast Seen? NONE SEEN #/LPF (NONE SEEN); Renal Epithelial Cells Urine RARE #/LPF (NONE SEEN)
== END 2024-04-23 14:25 | disposition home or self-care (01) ==
PROVIDERS: Emergency Provider Emergency Medicine
DX: E86.0 Dehydration (principal); T37.8X5A Adverse effect of other specified systemic anti-infectives and antiparasitics, initial encounter; N39.0 Urinary tract infection, site not specified
CPT/HCPCS: 36415; 71045; 80048; 81001; 84484; 85025; 87804; 87811; 93005; 96374; 99285; J2405

== ENCOUNTER 2025-01-22 13:58 | Emergency (ER) | payer MEDICARE, SELFPAY ==
--- OUTSIDE RECORDS SUMMARY | 2024-07-28 07:00 | XMS_ITS ---
Author Organization [facility] [place] Address [address] [place] [address] Care Team Providers Care Telemarketing Manager Name Role Phone Nicole Garcia DO Primary Care Provider Isabel [place] [phone] REASON FOR VISIT AD red spot on left shoulder Encounters Encounter Location Date Provider Diagnosis [facility] [address] [place] [address] 07/28/2024 Isabel Duran Plan Of Treatment No Information Progress Notes * Eileen SEXT[birth year]OB:[birth year] (79 yo F)Acc No.[id number]:07/28/2024 UNLOCKED PROGRESS NOTE New Patient Patient: Eileen BECKFORD Provider: Orlin Duran APRN :1945 A ge:78 Y S ex:Female Date:07/28/2024 Address:[facility] [address] [place], [place] Pcp:Nicole Garcia DO Subjective: * Chief Complaints: * 1 . AD red spot on left shoulder. * Medical History: Objective: * Vitals: Assessment: Plan: * Treatment: * * Electronic signature of Brandon Duran NP on 01/22/2025 at 02:24 PM EDT Sign off status: Pending Visit Status: R /S (Rescheduled) * Provider: Orlin Duran APRN Date: 0 07/28/2024 Generated for Carlin iqbal/Yessi/Neda on: 0 01/22/2025 02:24 PM EDT
--- OUTSIDE RECORDS SUMMARY | 2024-08-23 05:45 | XMS_ITS ---
Author Organization [facility] [place] Address [address] [place] [address] Care Team Providers Care Bus And Trolley Dispatcher Name Role Phone Nicole Garcia DO Primary Care Provider Isabel [facility] [phone] REASON FOR VISIT AD AD red spot on left shoulder Encounters Encounter Location Date Provider Diagnosis [facility] [address] [place] [id number] 08/23/2024 Isabel Duran Plan Of Treatment No Information Progress Notes * Eileen SEXTONDOB:[birth year] (79 yo F)Acc No.[id number]:08/23/2024 UNLOCKED PROGRESS NOTE New Patient Patient: Eileen BECKFORD Provider: Orlin Duran APRN :1945 A ge:78 Y S ex:Female Date:08/23/2024 [facility] Pcp:Nicole Garcia DO Subjective: * Chief Complaints: * 1 . AD AD red spot on left shoulder. * Medical History: Objective: * Vitals: Assessment: Plan: * Treatment: * * Electronic signature of Brandon Duran NP on 01/22/2025 at 02:24 PM EDT Sign off status: Pending Visit Status: C ANC (Cancelled) * Provider: Orlin Duran APRN Date: 0 08/23/2024 Generated for Carlin iqbal/Yessi/Tianaitting on: 0 01/22/2025 02:24 PM EDT
[2025-01-22] VITALS (18 sets, daily range): BP systolic 90–158; BP diastolic 44–64; PULSE 70–72; TEMP 36.6; O2SAT 95–99; BMI 26.3
--- OUTSIDE RECORDS SUMMARY | 2025-01-22 14:23 | XMS_ITS | Encounter Summary ---
Author Organization [facility] Address [address] [facility], [address] [place] [address] Care Team Providers Care Respiratory Assistant Name Role Phone Nicole Garcia DO Primary Care Provider [phone] Reason for Referral * Eval and Treat (Routine) - Open Specialty Diagnoses / Procedures Referred By Shae colón Referred To Contact Vascular Surgery Diagnoses Bilateral carotid artery stenosis Andra Campbell DO [address] [facility] [address] [place] [address] Phone: tel: fax: Andra David MD [address] [facility], [address] [place] [address] Phone: tel: fax: Referral ID Status Reason Start Date Expiration Date V isits Requested Visits Authorized [id number] Open Specialty Services Required 01/22/2025 01/22/2026 1 1 Scheduling Instructions [facility] Question Answer My clinical question is: Carotid stenosis Comments The patient can be scheduled with any member of the group, including the provider with the first available appointments. Reason for Visit * Reason Onset Date Comments Results 01/05/2025 Encounter Details Date Type Department Care Team ([facility] st Contact Info) Description 01/05/2025 Telephone [employer] - [address] [address] Andra Campbell DO [address] [facility] [address] [place] [address] Results Social History Tobacco Use Types Packs/Day Years Used Date Smoking Tobacco: Former Cigarettes 0 07/28/1958 - 07/28/1997 Smokeless Tobacco: Never Alcohol Use Standard Drinks/Week Comments No 0 (1 standard drink = 0.6 oz pur e alcohol) Comments No Sex and Gender Information Value Date Recorded Sex Assigned at Female 12/26/2024 9:50 AM EDT Legal Sex Female 1:29 PM EST Gender Identity Female 12/26/2024 9:50 AM EDT Sexual Orientation Not on file documented as of this encounter Plan of Treatment Upcoming Encounters Date Type Department Care Team (Late st Contact Info) Description 07/02/2025 10:00 AM EST Office Visit [employer] - [address] [address] Andra Campbell DO [address] [facility] [address] [place] [phone] 6 months f.u with carotid results Scheduled Referrals Name Type Priority Associated Diagnoses Orde r Andra Lainez MD, Vascular Surgery, [facility] Outpatient Referral Routine Bilateral carotid artery stenosis Ordered: 01/22/2025 documented as of this encounter Visit Diagnoses Diagnosis Bilateral carotid artery stenosis- Primary Occlusion and stenosis of multiple and bilateral precerebral arteries without mention of cerebral infarction documented in this encounter Care Teams Respiratory Assistant Relationship Specialty Start Date End Date Nicole Garcia DO [address] [address] PCP - General Family Medicine 07/01/23 documented as of this encounter
--- OUTSIDE RECORDS SUMMARY | 2025-01-22 14:23 | XMS_ITS | Encounter Summary ---
Author Organization [facility] Address [id number] [place] [address] Care Team Providers Care Communications Program Manager Name Role Phone Wayne, Concepcion Ross DO Primary Care Provider [phone] Encounter Details Date Type Department Care Team (Late st Contact Info) Description 01/08/2021 Orders Only [facility] [address] [facility], [address] [address] Hugh Bowden MD [facility] [address] [place] [address] Social History Tobacco Use Types Packs/Day Years Used Date Smoking Tobacco: Former Cigarettes Q uit: 05/26/1998 Smokeless Tobacco: Never Alcohol Use Standard Drinks/Week Comments No 0 (1 standard drink = 0.6 oz pur e alcohol) PHQ-2 Answer Date Recorded Total Score 0 04/01/2020 Childcare Answer Date Recorded Childcare Unknown 11/09/2018 Employment Answer Date Recorded Employment Unknown 11/09/2018 Purpose - Life Answer Date Recorded Purpose and direction in life Unknown Comments No Sex and Gender Information Value Date Recorded Sex Assigned at Female 01/06/2021 12:15 PM EDT Legal Sex Female 11:30 PM EDT Gender Identity Female 01/06/2021 12:15 PM EDT Sexual Orientation Straight 01/06/2021 12 :15 PM EDT COVID-19 Exposure Response Date Recorded In the last month, have you been in contact with someone who was confirmed or suspected to have Coronavirus / COVID-19? No / Unsure 01/08/2021 2:58 PM EDT documented as of this encounter Plan of Treatment Not on file documented as of this encounter Procedures Procedure Name Priority Date/Time Associated Diagnosis Comments COMPREHENSIVE HEARING TEST Routine 01/08/2021 3:01 PM EDT documented in this encounter Results * Comprehensive hearing test (01/08/2021 3:01 PM EDT) Narrative MANUALLY TRANSCRIBED RESULTS - 01/08/2021 3:01 PM EDT Audiology evaluation was completed on 01/08/2021 us Hugh Bowden MD AUDIOLOGY SERVICES ORDERABLES Fi nal Result MANUALLY TRANSCRIBED RESULTS documented in this encounter Visit Diagnoses Not on filedocumented in this encounter Additional Health Concerns Assessment Noted Time PHQ-9 Depression Total Score: 0 04/01/20 20 9:19 AM EST documented as of this encounter Care Teams Communications Program Manager Relationship Specialty Start Date End Date Concepcion Wayne DO PCP - General Family Medicine 03/26/20 documented as of this encounter
--- OUTSIDE RECORDS SUMMARY | 2025-01-22 14:23 | XMS_ITS | Patient Health Record ---
Author Organization [facility] Address [address] [place] [id number] Care Team Providers Care Scarrer Name Role Phone Nicole Garcia Primary Care Provider UnavailTaty Avila Unavailable [phone] Allergies Allergen (clinical drug ingredient) Drug/Non Drug Allergy documented on EMR Reaction Allergy Type Onset Date Status CT Scan dye (uncoded) Unknown Allergy Active PCN (uncoded) Unknown Allergy Active calcium carbonate Calcium Unknown Drug Allergy Active fluconazole Diflucan Unknown Drug Allergy Activ e acetaminophen / oxycodone Percocet Unknown Drug Allergy Active Vicodin Unknown Drug Allergy Active doxycycline Doxycycline Unknown Drug Allergy Act melia Bee Sting Unknown Allergy Active Reason For Referral No Information Medications Medication SIG (Take, Route, Frequency, Duration) Notes Start Date End Date Status Reglan 5 MG 1 tablet before meal s Orally Twice a day; Duration: 30 days 06/07/2023 Active ALPRAZolam Active Fluticasone Propionate Active Loratadine Active Vitamin D-3 Active Pantoprazole Sodium 40 MG 1 tablet Orall y twice a day Active Vitamin C Active Venlafaxine HCl ER A ctive Rosuvastatin Calcium Active Multivitamin Active Immunizations Vaccine Route Administration Date Status Comme nts COVID-19 Moderna Unknown 03/24/2021 Administered Influenza Unknown 02/06/2021 Administered Social History Tobacco Use: Social History Observation Description Date Details (start date - stop date) Former Smoker NA - NA Alcohol Screen Question Answer Notes Did you have a drink containing alcohol in the p ast year? No Points 0 Interpretation Negative Smoking Question Answer Notes Status former smoker Section Notes: Problems Problem Type SNOMED Code ICD Code Onset Dates Problem Status W/U Status Risk Notes Problem Gastroparesis (264730208) Gastroparesis (K31.84) Active confirmed Problem Abdominal bloating (731761056) Abdominal bloating (R14.0) Active confirmed Problem Abdominal fullness (R19.8) Active confirmed Encounters Encounter Location Date Provider Diagnosis [facility] [address] [facility] [address] [place], [place] [id number] 04/18/2024 Taty Noble Plan Of Treatment Pending Test Test Name Order Date TTG IgG* 04/22/2021 TTG IgA* 04/22/2021 Total IgA* 04/22/2021 Insurance Providers Payer Name Payer Address Payer Phone Subscriber Number Group Number Insured Name Patient Relationship to Insured Coverage Start Date Coverage End Date Medicare [place] [address] [place] [address] [id number] Eileen Sexton Self - patient is the insured [employer] [address] [address] [place] [address] [id number] Eileen Sexton Self - patient is the insured Medical (General) History Medical History History ICD Code Hypothyroidism E03.9 Anxiety F41.9 Back pain M54.9 Gastritis K29.70 GERD (gastroesophageal reflux disease) K 21.9 Heart murmur R01.1 Hyperlipemia E78.5 Osteoporosis M81.0 Pancreatitis K85.90 Seasonal allergies J30.2 diverticulosis gastroparesis Surgical History Surgery Date(Month/Year) bladder surgery appendectomy cholecystectomy hysterectomy ankle surgery colonoscopy EGD
--- OUTSIDE RECORDS SUMMARY | 2025-01-22 14:23 | XMS_ITS | Clinical Summary ---
Author Organization [facility] Address [address], [address] [place] [address] Care Team Providers Care Master Automotive Technician Name Role Phone Nicole Garcia DO Primary Care Provider [phone] Allergies Active Allergy Reactions Criticality Noted Date Comments Albuterol 09/13/2015 Moxifloxacin 09/13/2015 Bee Venom Anaphylaxis,Swelling High 11/07/2020 Calcium Other (See Comments) 11/07/2020 Dicloxacillin 11/28/2015 Fluconazole 09/13/2015 Doxycycline Headaches,Hives High 01/09/2020 Iodides 09/13/2015 X-ray dye Hydrocodone Nausea And Vomiting Low 08/16/2023 Iodine Other (See Comments) 08/16/2023 Ioxaglate 11/28/2015 X-ray dye Nitrofurantoin Hives 08/16/2023 Omeprazole Other (See Comments),Nausea Only 12/17/2016 Penicillins 09/13/2015 Oxycodone-Acetaminophen 09/13/2015 Hydrocodone-Acetaminophen 09/13/2015 Medications loratadine (CLARITIN) 10 MG tablet Take 1 tablet by mouth daily Active vitamin D (CHOLECALCIFERO L) 1000 UNIT TABS tablet Take 2 tablets by mouth daily Active ascorbic acid (VITAMIN C) 500 MG tablet Take 1 tablet by mouth every other day Active Multiple Vitamins-Minera ls (MULTIVITAMIN PO) Take 1 tablet by mouth daily Active pantoprazole (PROTONIX) 40 MG tablet Take 1 tablet by mouth daily 0 6 Active fluticasone (FLONASE) 50 MCG/ACT nasal spray 1 spray by Nasal route nightly 0 7 Active ALPRAZolam (XANAX) 0.25 MG tablet TAKE ONE TABLET BY MOUTH TWICE DAILY NEEDED FOR ANXIETY 4 Active venlafaxine (EFFEXOR XR) 37.5 MG extended release capsule 3 Active methenamine (HIPREX) 1 g tablet 4 Active Probiotic, Lactobacillus, CAPS Take 1 capsule by mouth daily Active rosuvastatin (CRESTOR) 40 MG tablet 5 Active rosuvastatin (CRESTOR) 20 MG tablet Take 1 tablet by mouth daily 90 tablet 3 6 12/28/19 25 Discontinu ed(Therapy completed) linaCLOtide (LINZESS) 72 MCG CAPS capsule Take 1 capsule by mouth daily 4 12/28/19 25 Discontinu ed(Therapy completed) Active Problems Problem Noted Date Diagnosed Date Dysuria 12/22/2024 SOB (shortness of breath) 07/01/2023 Abnormal ECG 07/01/2023 Nonrheumatic mitral valve regurgitation 07/01/19 Class 1 obesity due to exces s calories with serious comorbidity in adult 07/01/2023 Hypertension, essential 07/01/2023 Pure hypercholesterolemia 07/01/2023 Gastroparesis 06/29/2023 06/29/2023 Abdominal bloating 06/29/2023 06/29/2023 Urinary tract infectious disease 06/29/2023 06/29/2023 Pancreatitis 06/29/2023 06/29/2023 Difficult or painful urination 03/19/2021 0 06/29/2023 Frontal sinusitis 03/19/2021 06/29/2023 Gastroenteritis 03/19/2021 06/29/2023 Occult blood in stools 03/19/2021 Otitis externa 03/19/2021 06/29/2023 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 06/29/2023 Abdominal pain 03/19/2021 Pruritus of vagina 03/19/2021 Hypothyroidism 11/25/2017 06/29/2023 Fall at home, initial encounter 07/20/2017 06/29/2023 Crushing injury of right forearm 07/20/2017 Crushing injury of right wrist 07/20/2017 Anemia 12/17/2016 06/29/2023 Increased body mass index 12/17/20162023 Essential hypertension 12/07/2016 Aortic valve sclerosis 12/07/2016 Loss of taste 11/28/2015 06/29/2023 Hiatal hernia with GERD and esophagitis 11/28/19 16 KATIA (obstructive sleep apnea) 09/13/2015 Anxiety 09/13/2015 Mixed hyperlipidemia 09/13/2015 Mild mitral regurgitation 09/13/2015 Pulmonic valve regurgitation 09/13/2015 Overview (09/13/2015): mild Multiple-type hyperlipidemia 09/13/2015 Pulmonary function studies abnormal 03/08/2014 06/29/2023 Allergic rhinitis 01/31/2014 Solitary pulmonary nodule 01/22/20142023 Candidal otitis externa 10/24/2013 06/29/19 24 Actinic keratosis 09/14/2013 06/29/2023 Candidiasis of mouth 09/14/2013 Disorder of skin or subcutaneous tissue 09/07/19 14 Acute bronchitis 07/25/2013 06/29/2023 Depressive disorder 07/25/2013 06/29/2023 Diverticulitis of colon 07/25/2013 06/29/19 24 Gastroesophageal reflux disease 07/25/2013 06/29/2023 Osteoporosis 07/25/2013 06/29/2023 Anxiety state 07/25/2013 Hyperlipidemia 07/25/2013 Encounters Date Type Department Care Team Description 01/05/2025 11:15 AM EDT Ancillary Procedure [facility]keeper - [address] [address] Pure hypercholesterolemia; Hypertension, essential; S/P cardiac cath; Class 2 severe obesity due to excess calories with serious comorbidity in adult, unspecified BMI (HCC); KATIA (obstructive sleep apnea); Cerebrovascular accident (CVA) due to other mechanism (HCC); Former tobacco use 01/05/2025 Telephone [facility] Payable Bookkeeper - [address] [address] Andra Campbell DO Results 12/27/2024 9:15 AM EDT Office Visit [facility] Pay[facility] Bookkeeper - [address] [address] Andra Campbell DO Pure hypercholesterolemia (Primary Dx); Hypertension, essential; S/P cardiac cath; Class 2 severe obesity due to excess calories with serious comorbidity in adult, unspecified BMI (HCC); KATIA (obstructive sleep apnea); Cerebrovascular accident (CVA) due to other mechanism (HCC); Former tobacco use from Last 3 Months Family History Medical History Relation Name Comments Heart Disease Father fatal [place] 52 yrs Heart Disease Paternal Grandmother fatal [place] at age 62 yrs Relation Name Status Comments Father Paternal Grandmother Social History Tobacco Use Types Packs/Day Years [...] AM EDT Sexual Orientation Not on file Last Filed Vital Signs Vital Sign Reading Time Taken Comments Blood Pressure 90/56 01/05/2025 11:14 AM EDT Pulse 87 12/27/2024 9:13 AM EDT Temperature - - Respiratory Rate 16 12/27/2024 9:13 AM EDT Oxygen Saturation 98% 12/27/2024 9:13 AM EDT Inhaled Oxygen Concentration - - Weight 69.4 kg (153 lb) 01/05/2025 11:14 AM EDT Height 157.5 cm (5' 2 ) 01/05/2025 11:14 AM EDT Body Mass Index 27.98 01/05/2025 11:14 AM EDT Plan of Treatment Upcoming Encounters Date Type Department Care Team (Late st Contact Info) Description 07/02/2025 10:00 AM EST Office Visit [facility] Payable Bookkeeper - [address] [address] Andra Campbell DO [address] [place] [address] 6 months f.u with carotid results Health Maintenance Due Date Last Done Comments Depression Monitoring 1957 DEXA (modify frequency per FRAX score) 12/19/1999 Lipids 07/18/2016 07/18/2015 Annual Wellness Visit (Medicare) 04/26/2023 Flu vaccine (#1) 12/29/2024 02/04/2024, , 02/06/2022, Additional history exists DTaP/Tdap/Td vaccine (2 - Td or Tdap) 08/24/2026 08/24/2016 Shingles vaccine Completed 09/13/2018, , 06/16/2011 Pneumococcal 50+ years Vaccine Completed 09/02/2022, 01/11/2018, 06/08/2016, Additional history exists Respiratory Syncytial Virus (RSV) or age 60 yrs+ Completed 05/22/2023 COVID-19 Vaccine Completed 09/05/2024, 10/2023, 02/17/2023, Additional history exists Hepatitis A vaccine Aged Out No longe r eligible based on patient's age to complete this topic Hepatitis B vaccine Aged Out No longe r eligible based on patient's age to complete this topic Hib vaccine Aged Out No longer eligi ble based on patient's age to complete this topic Meningococcal (ACWY) vaccine Aged Out No longer eligible based on patient's age to complete this topic Meningococcal B vaccine Aged Out No l onger eligible based on patient's age to complete this topic Polio vaccine Aged Out No longer elig ible based on patient's age to complete this topic Procedures Procedure Name Priority Date/Time Associated Diagnosis Comments VAS DUP CAROTID BILATERAL Routine 01/05/2025 11:46 AM EDT Pure hypercholesterolemia Hypertension, essential S/P cardiac cath Class 2 severe obesity due to excess calories with serious comorbidity in adult, unspecified BMI (HCC) KATIA (obstructive sleep apnea) Cerebrovascular accident (CVA) due to other mechanism (HCC) Former tobacco use EKG 12-LEAD Routine 12/27/2024 Pure hypercholesterolemia Hypertension, essential S/P cardiac cath Class 2 severe obesity due to excess calories with serious comorbidity in adult, unspecified BMI (HCC) KATIA (obstructive sleep apnea) Cerebrovascular accident (CVA) due to other mechanism (HCC) Former tobacco use LIPID PANEL Routine 07/18/2015 from Last 3 Months or Most Recently Relevant to Health Maintenance Results * (ABNORMAL) Vascular duplex carotid bilateral (01/05/2025 11:46 AM EDT) Body Surface Area 1.74 m2 [facility] Right CCA prox PSV 25.7 cm/s [facility] Right CCA prox EDV 0.0 cm/s [facility] NOWHERE Right CCA mid PSV 19.6 cm/s [facility] Right CCA mid EDV 0.0 cm/s [facility] Right cca dist PSV 16.5 cm/s [facility] Right CCA dist EDV 0.0 cm/s [facility] NOW[facility] Right ICA prox PSV 36.0 cm/s [facility] NOWHERE Right ICA prox EDV 3.2 cm/s [facility] NOWHERE Right ICA mid PSV 58.8 cm/s [facility] CV NOWHERE Right ICA mid EDV 2.3 cm/s [facility] CV NOWHERE Right ECA PSV 31.6 cm/s [facility] C V NOWHERE Right ECA EDV 2.2 cm/s [facility] C V NOWHERE Right vertebral PSV 57.8 cm/s [facility] CV NOWHERE Right vertebral EDV 2.2 cm/s [facility] CV NOWHERE Left CCA prox PSV 187.0 cm/s [facility] CV NOWHERE Left CCA prox EDV 11.3 cm/s [facility] CV NOWHERE Left CCA mid PSV 109.1 cm/s [facility] CV NOWHERE Left CCA mid EDV 16.0 cm/s [facility] CV NOWHERE Left CCA dist PSV 85.0 cm/s [facility] CV NOWHERE Left CCA dist EDV 6.4 cm/s [facility] CV NOWHERE Left ICA prox PSV 97.9 cm/s [facility] CV NOWHERE Left ICA prox EDV 16.0 cm/s [facility] CV NOWHERE Left ICA mid PSV 123.4 cm/s [facility] CV NOWHERE Left ICA mid EDV 34.7 cm/s [facility] CV NOWHERE Left ECA PSV 209.5(A) cm/s [facility] CV NOWHERE Left ECA EDV 4.5 cm/s [facility] CV NOWHERE Left vertebral PSV 56.7 cm/s [facility] CV NOWHERE Left vertebral EDV 10.8 cm/s BS CV NOWHERE Anatomical Region Laterality Modality Vascular, Head Vascular Ultraso und Narrative 01/05/2025 3:24 PM EDT Mild (<50%) stenosis in the right internal carotid artery. Mild, heterogeneous and calcific plaque (proximal) in the right internal carotid artery. Mild (<50%) stenosis in the left internal carotid artery. Mild, heterogeneous and calcific plaque (proximal) in the left internal carotid artery. Moderate (50-75%) stenosis of the left external carotid artery. Normal antegrade flow involving the right vertebral artery. Normal antegrade flow involving the left vertebral artery. Mild (<50%) calcific stenosis bilaterally in the carotid bulbs. Mild (<50%) stenosis of the right external carotid artery. Right Carotid Common Carotid Artery: Mild stenosis. Mild and homogeneous plaque (mid and distal). Flow is antegrade. Carotid Bulb: Heterogeneous and calcific plaque. Internal Carotid Artery: Mild (<50%) stenosis in the proximal ICA. Mild, heterogeneous and calcific plaque (proximal). Flow is antegrade. External Carotid Artery: <50% stenosis. Mild, heterogeneous and calcific plaque (proximal). Flow is antegrade. Vertebral Artery: Flow is antegrade. Left Carotid Common Carotid Artery: Mild stenosis. Mild and homogeneous plaque (mid and distal). Flow is antegrade. Carotid Bulb: Heterogeneous and calcific plaque. Internal Carotid Artery: Mild (<50%) stenosis in the proximal ICA. Mild, heterogeneous and calcific plaque (proximal). Flow is antegrade. External Carotid Artery: <50% stenosis. Mild, heterogeneous and calcific plaque (prox). Flow is antegrade. Vertebral Artery: Flow is antegrade. Hospital Unit Clerk Details A cao scale, color Doppler imaging and spectral Doppler analysis ultrasound was performed. During the study longitudinal views were obtained. Pulsed wave doppler was performed. Overall the study quality was adequate. Study was technically difficult due to: acoustic shadowing and body habitus. us Andra S Adrian DO CV VASCULAR ORDERABLES Final R esult * EKG 12 Lead (57578) (12/27/2024) Andra S Alo ECG ORDERABLES Final Result * (ABNORMAL) Lipid Panel (07/18/2015) Cholesterol, Total 182 HDL 72(A) 35 - 70 mg/dL LDL Calculated 79 0 - 160 mg/dL Triglycerides 154 mg/dL Chol/HDL Ratio 2.53 VLDL 30 mg/dL BLOOD SPECIMEN / Unknown Historical Provider CHEMISTRY ORDERABLES Edit ed Result - Final from Last 3 Months or Most Recently Relevant to Health Maintenance Insurance MEDICARE MEDICARE MEDICARE [employer] SENIOR MEDICARE SUPP Care Teams Master Automotive Technician Relationship Specialty Start Date End Date Nicole Garcia DO [address] [address] PCP - General Family Medicine 07/01/23
--- OUTSIDE RECORDS SUMMARY | 2025-01-22 14:23 | XMS_ITS | Clinical Summary ---
Author Organization [facility] Address [address] [place] [address] Care Team Providers Care Highway Technician Name Role Phone Arben Loving MD Unavailable [phone] Concepcion Wayne MD Primary Care Provider Unava ilable Allergies Active Allergy Reactions Criticality Noted Date Comments Albuterol Headache 09/13/2015 Doxycycline Headache High 01/09/2020 Fluconazole Other (See Comments) 09/13/2015 Skin burning sensation Hydrocodone-Acetaminoph en Nausea And Vomiting 09/13/2015 Iodides Other (See Comments) 09/13/2015 X-ray dye Iodinated Contrast Media Other (See Comments) 12/17/2016 Skin burning sensation Ioxaglic Acid (Iodinated Contrast Media) Other (See Comments) 11/28/2015 X-ray dye X-ray dye Moxifloxacin Other (See Comments) 09/13/2015 Skin burning sensation Omeprazole Headache,Nausea Only,Other (See Comments) 12/17/2016 Oxycodone-Acetaminophen Nausea And Vomiting Penicillins Hives 09/13/2015 Medications pediatric multivitamin chewable tablet Chew 1 tablet and swallow. Active ALPRAZolam (XANAX) 0.25 mg tablet TAKE 1 TABLET BY MOUTH TWICE DAILY NEEDED FOR 30 DAYS 0 Active ascorbic acid (VITAMIN C) 500 mg tablet Take 500 mg by mouth. Active sertraline (ZOLOFT) 100 mg tablet Take 100 mg by mouth once daily. 0 Active loratadine (CLARITIN) 10 mg tablet Take 10 mg by mouth as needed. Active cholecalciferol (VITAMIN D3) 25 mcg (1,000 unit) tablet Take 2,000 units by mouth. Active multivitamin tablet once daily before a meal. Active levothyroxine (SYNTHROID) 25 mcg tablet take 1 tablet by mouth every morning ON AN EMPTY STOMACH 0 Active rosuvastatin (CRESTOR) 20 mg tablet Take 20 mg by mouth once daily. 0 Active fluticasone (FLONASE) 50 mcg/actuation nasal spray [place] 1 spray into the nose as needed. 7 Active cetirizine (ZyrTEC) 10 mg tablet Take 10 mg by mouth as needed. Active lactobacillus rhamnosus GG (CULTURELLE) 10 billion cell capsule Take 1 capsule by mouth once daily. Active FREE-TEXT MEDICATION once daily. laxative Active Active Problems No known active problems Family History Medical History Relation Name Comments Diabetes Father Glaucoma Maternal Grandmother Relation Name Status Comments Father Maternal Grandmother Social History Tobacco Use Types Packs/Day Years Used Date Smoking Tobacco: Former Cigarettes Q uit: 07/11/2019 Smokeless Tobacco: Never Alcohol Use Standard Drinks/Week Comments Never 0 (1 standard drink = 0.6 oz pur e alcohol) AUDIT-C Answer Date Recorded Q1: How often do you have a drink containing alc ohol? Never 01/09/2020 Average Number of Drinks Not on file 020 Frequency of Binge Drinking Not on file 12/29 Comments Unknown Sex and Gender Information Value Date Recorded Sex Assigned at Not on file Legal Sex Female 1:45 PM EDT Gender Identity Not on file Sexual Orientation Not on file Plan of Treatment Health Maintenance Due Date Last Done Comments DTaP,Tdap,and Td Vaccines (1 - Tdap) 12/19/1963 Pneumococcal Vaccines 50year s + (1 of 1 - PCV) 1994 Zoster Recombinant Vaccines (1 of 2) 1994 DEXA Bone Density Baseline 2009 Respiratory Syncytial Virus (RSV) or ages 60 years and older (1 - 1-dose 75+ series) 12/19/2019 COVID-19 Vaccine ( - 2023-2 5 season) 2024 Influenza Vaccine (#1) 2025 Respiratory Syncytial Virus (RSV) ages 0 thru 19 months Aged Out No longer eligible based on patient's age to complete this topic Insurance MEDICARE PART A AND B [facility] Care Teams Highway Technician Relationship Specialty Start Date End Date Concepcion Wayne MD [address] [facility] [place] [address] PCP - General Family Medicine 12/28/19 Arben Loving MD [address] [place] [address] Referring Physician Ophthalmology 12/15/19
--- OUTSIDE RECORDS SUMMARY | 2025-01-22 14:23 | XMS_ITS | Encounter Summary ---
Author Organization [facility] tem Address [id number] [address] [place] [address] Care Team Providers Care Autism Specialist Name Role Phone Wayne, Concepcion Ross DO Primary Care Provider [phone] Encounter Details Date Type Department Care Team (Late st Contact Info) Description 03/28/2020 Telephone [facility] [address] [place] [address] Transcribe, Orders Support User Social History Tobacco Use Types Packs/Day Years Used Date Smoking Tobacco: Former Cigarettes Q uit: 05/26/1998 Smokeless Tobacco: Never Alcohol Use Standard Drinks/Week Comments No 0 (1 standard drink = 0.6 oz pur e alcohol) PHQ-2 Answer Date Recorded Total Score 0 04/01/2020 Childcare Answer Date Recorded Childcare Unknown 11/09/2018 Employment Answer Date Recorded Employment Unknown 11/09/2018 Comments No Sex and Gender Information Value [...] have Coronavirus / COVID-19? No / Unsure 03/26/2020 10:05 AM EDT documented as of this encounter Plan of Treatment Not on file documented as of this encounter Visit Diagnoses Not on filedocumented in this encounter Care Teams Autism Specialist Relationship Specialty Start Date End Date Concepcion Wayne DO PCP - General Family Medicine 03/26/20 documented as of this encounter
--- OUTSIDE RECORDS SUMMARY | 2025-01-22 14:25 | XMS_ITS | Encounter Summary ---
Author Organization [facility] Address [address] [place] [address] Care Team Providers Care Strategic Alliances Manager Name Role Phone Taty Noble LAMP DEVELOPER Unavailable [phone] Source Comments In the event this information is protected by the Federal Confidentiality of Alcohol and Drug AbusePatient Records regulations: The Federal rules restrict any use of the information to criminally investigate or prosecute any alcohol or drug abuse patient.[facility] Encounter Details Date Type Department Care Team (Late st Contact Info) Description 08/18/2023 Get Medical Advice Gastroenterology [facility] [address] [place] [address] Kem Awan DO [facility] [address] [place] [address] cost Social History Tobacco Use Types Packs/Day Years Used Date Smoking Tobacco: Never Assessed Area Deprivation Index Answer Date Robin rded National Score (1-100), lower number is lower ri sk 54 08/16/2023 State Score (1-10), lower number is lower risk 3 08/16/2023 Data from: https://www.neighborhoodatlas.medicine.[facility].edu/. Last address used for calculation [address] 08/16/2023 Comments Unknown Sex and Gender Information Value Date Recorded Sex Assigned at Not on file Legal Sex Female 8:46 AM EST Gender Identity Not on file Sexual Orientation Not on file documented as of this encounter Plan of Treatment Not on file documented as of this encounter Visit Diagnoses Not on filedocumented in this encounter Care Teams Strategic Alliances Manager Relationship Specialty Start Date End Date Taty Noble CNP [address] [address] Referring Family Medicine 06/10/23 documented as of this encounter
--- OUTSIDE RECORDS SUMMARY | 2025-01-22 14:25 | XMS_ITS | Encounter Summary ---
Author Organization [facility] Address [address] [place] [address] Care Team Providers Care Accounting Professor Name Role Phone Taty Noble NATIONAL SALES MANAGER Unavailable [phone] Source Comments In the event this information is protected by the Federal Confidentiality of Alcohol and Drug AbusePatient Records regulations: The Federal rules restrict any use of the information to criminally investigate or prosecute any alcohol or drug abuse patient.[facility] Encounter Details Date Type Department Care Team (Late st Contact Info) Description 08/17/2023 Get Medical Advice Gastroenterology [facility] [address] [place] [address] Kem [facility] [address] [place] [address] Liness Social History Tobacco Use Types Packs/Day Years Used Date Smoking Tobacco: Never Assessed Area Deprivation Index Answer Date Robin rded National Score (1-100), lower number is lower ri sk 54 08/16/2023 State Score (1-10), lower number is lower risk 3 08/16/2023 Data from: https://www.neighborhoodatlas.medicine.[facility].edu/. Last address used for calculation [address] 08/16/2023 Comments Unknown Sex and Gender Information Value Date Recorded Sex Assigned at Not on file Legal Sex Female 8:46 AM EST Gender Identity Not on file Sexual Orientation Not on file documented as of this encounter Plan of Treatment Not on file documented as of this encounter Visit Diagnoses Not on filedocumented in this encounter Care Teams Accounting Professor Relationship Specialty Start Date End Date Taty Noble CNP [address] [address] Referring Family Medicine 06/10/23 documented as of this encounter
--- OUTSIDE RECORDS SUMMARY | 2025-01-22 14:26 | XMS_ITS | Patient Health Record ---
Author Organization [facility] Address [address] [place] [address] Care Team Providers Care Hydropress Operator Name Role Phone Nicole Garcia DO Primary Care Provider Isabel [facility] [phone] Reason For Referral No Information Medications Medication SIG (Take, Route, Frequency, Duration) Notes Start Date End Date Status NexIUM 10/27/2014 Active Crestor 10/27/2014 Active Loratadine 10/27/2014 Active Zoloft 100mg Take 1 tablet(s) by mouth daily Oral daily for 10/27/2014 Active Xanax 0.25mg one daily prn daily for 10/27/2014 Active Plan Of Treatment No Information Insurance Providers Payer Name Payer Address Payer Phone Subscriber Number Group Number Insured Name Patient Relationship to Insured Coverage Start Date Coverage End Date MEDICARE [place] [address] [phone] [id number] Eileen Ash Self - patient is the insured 0 [employer] SENIOR SUPPLEMENTAL INSURANCE [address] [address] [place] [address] [id number] PLAN G Eileen Ash Self - patient is the insured
--- OUTSIDE RECORDS SUMMARY | 2025-01-22 14:26 | XMS_ITS | Clinical Summary ---
Author Organization [employer] Address [id number] [address] [place] [address] Care Team Providers Care Tool Design Checker Name Role Phone WayneConcepcion DO Primary Care Provider [phone] Allergies Active Allergy Reactions Criticality Noted Date Comments Albuterol Headache 09/13/2015 Moxifloxacin Other (See Comments) 12/17/2016 Skin burning sensation Bee Venom Protein (Honey Bee) Swelling 11/07/2020 Calcium GI Disturbance 11/07/2020 Dicloxacillin Sodium Nausea 11/28/2015 Doxycycline Headache High 01/09/2020 Fluconazole Other (See Comments) 11/28/2015 Skin burning sensation Iodides Other (See Comments) 09/13/2015 X-ray dye Iodinated Contrast Media Other (See Comments) 12/17/2016 Skin burning sensation Ioxaglate Sodium 11/28/2015 X-ray dye Omeprazole Headache,Nausea 12/17/2016 Penicillins Hives 05/26/2016 Oxycodone-Acetaminophen Nausea 11/28/2015 Other 12/17/2016 Hydrocodone-Acetaminoph en Nausea 11/28/2015 Medications pantoprazole (PROTONIX) 40 mg EC tablet Pantoprazole Sodium 40 MG Oral Tablet Delayed Release Take 1 tablet twice daily Quantity: 60 Refills: 3 Active Active ALPRAZolam (XANAX) 0.25 mg tablet daily. Active loratadine (CLARITIN) 10 mg tablet daily. Active multivitamin (MULTIPLE VITAMINS) tablet daily. Active rosuvastatin (CRESTOR) 20 mg tablet 40 mg daily. 6 Active sertraline (ZOLOFT) 100 mg tablet daily. Active cholecalciferol , vitamin D3, (VITAMIN D3) 1,000 units tablet daily. Active fluticasone (FLONASE) 50 mcg/actuation nasal spray Administer into each nostril daily. 7 Active sucralfate (CARAFATE) 1 gram tablet Take 1 tablet (1 g total) by mouth 2 (two) times daily at 0800 and 1200. 60 tablet 6 7 Active Additional Information Patient not taking.Reported on 08/04/2021 levothyroxine (SYNTHROID, LEVOTHROID) 25 MCG tablet 0 Active cetirizine (ZyrTEC) 10 mg tablet Take 10 mg by mouth daily. Active nystatin (MYCOSTATIN) cream apply 1 application topically TO affected areas THREE TIMES DAILY FOR 10 DAYS 1 Active ascorbic acid (ascorbic acid with carmen hips) 500 mg tablet Take by mouth 3 (three) times a week. Active Lactobacillus acidophilus (PROBIOTIC) 10 billion cell capsule Take 1 capsule by mouth daily. 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 Otitis externa 03/19/2021 Hypothyroidism 11/25/2017 Crushing injury of right forearm 07/20/2017 Crushing injury of right wrist 07/20/2017 Fall at home, initial encounter 07/20/2017 Anemia 12/17/2016 Increased body mass index 12/17/2016 Urinary tract infection 12/17/2016 Aortic valve sclerosis 12/07/2016 Essential hypertension 12/07/2016 Hiatal hernia with GERD and esophagitis 11/28/19 16 Loss of taste 11/28/2015 Anxiety 09/13/2015 Mitral valve insufficiency 09/13/2015 Multiple-type hyperlipidemia 09/13/2015 Obstructive sleep apnea syndrome 09/13/2015 Pulmonary valve insufficiency 09/13/2015 Overview (12/17/2016): Overview: mild Pulmonary function studies abnormal 03/08/2014 Allergic rhinitis 01/31/2014 Solitary pulmonary nodule 01/22/2014 Cough 01/15/2014 Candidal otitis externa 10/24/2013 Actinic keratosis 09/14/2013 Candidiasis of mouth 09/14/2013 Disorder of skin or subcutaneous tissue 09/07/19 14 Counseling for estrogen replacement therapy 07/02 Depressive disorder 07/25/2013 Diverticulitis of colon 07/25/2013 Osteoporosis 07/25/2013 Acute bronchitis 07/25/2013 Resolved Problems Problem Noted Date Diagnosed Date Resolved Date Acute pancreatitis 11/28/2015 6 Family History Medical History Relation Name Comments Diabetes Father Heart disease Father Osteoporosis Mother Diabetes Paternal Grandmother Breast cancer Sister Relation Name Status Comments Father Mother Paternal Grandmother Sister Social History Tobacco Use Types Packs/Day Years Used Date Smoking Tobacco: Former Cigarettes Q uit: 05/26/1998 Smokeless Tobacco: Never Tobacco Cessation:Counseling Given: Yes Alcohol Use Standard Drinks/Week Comments No 0 [...] Orientation Straight 01/06/2021 12 :15 PM EDT Last Filed Vital Signs Vital Sign Reading Time Taken Comments Blood Pressure 100/68 08/04/2021 1:25 PM EST Pulse 67 04/08/2021 1:15 PM EST Temperature 36.9 C (98.4 F) 08/04/2021 1:25 PM EST Respiratory Rate 13 04/08/2021 1:15 PM EST Oxygen Saturation 98% 04/08/2021 1:15 PM EST Inhaled Oxygen Concentration - - Weight 71.1 kg (156 lb 12.8 oz) 08/04/2021 1:25 PM EST Height 157.5 cm (5' 2 ) 08/04/2021 1:25 PM EST Body Mass Index 28.68 08/04/2021 1:25 PM EST Plan of Treatment Health Maintenance Due Date Last Done Comments Depression Screening 1957 Tobacco Screening 1957 Fall Risk Screening 2009 COVID-19 Vaccine (2023-2 5 season) 2024 03/24/2021, 07/27/2020, 06/29/2020 Influenza Vaccine 01/29/2025 02/04/2023, , 02/06/2021, Additional history exists DTaP,Tdap and Td Vaccines (2 - Td or Tdap) 08/24/2026 08/24/2016 Zoster (Shingles) Vaccine Completed 2018, 05/25/2018, 06/16/2011 Medical Devices Implanted Type Area Leadership Recruiter Device Identifier Shelf Expiration Date Model / Serial / Lot Stent Lcrml Dct Mnk Karen Rtlng Bicanaliculus Thrd Gd - [id number] - [id number] Implanted:Qty: 1 on 04/08/2021 by Kem Mcintyre MD at [facility] Other Implant Right: Eye [employer] 02/28/2025 [id number] / [id number] / [id number] Insurance MEDICARE AET Care Teams Tool Design Checker Relationship Specialty Start Date End Date Concepcion Wayne DO PCP - General Family Medicine 03/26/20
--- OUTSIDE RECORDS SUMMARY | 2025-01-22 14:26 | XMS_ITS | Clinical Summary ---
Author Organization [facility] Address [facility] [place] [address] Care Team Providers Care Industrial Yard Brake Coupler Name Role Phone Taty Noble CNP Unavailable [phone] Allergies Active Allergy Reactions Criticality Noted Date Comments Albuterol Intolerance 08/16/2023 Bee Venom Protein (Honey Bee) Anaphylaxis 08/15 Calcium Intolerance 08/16/2023 Doxycycline Hives 08/16/2023 Fluconazole Hives 08/16/2023 Hydrocodone GI Upset 08/16/2023 Iodine Unknown 08/16/2023 Nitrofurantoin Monohyd/M-Cryst Hives 08/15 Moxifloxacin Intolerance 08/16/2023 Penicillin Hives 08/16/2023 Quinolones Unknown 08/16/2023 Medications ALPRAZolam (XANAX) 0.25 mg tablet ALPRAZolam Active ascorbic acid, vitamin C, (VITAMIN C) 500 mg tablet Take 1 tablet by mouth every 48 hours. Active FLUTICASONE PROPIONATE NASAL Fluticasone Propionate Active pantoprazole DR (PROTONIX) 40 mg tablet Take 40 mg by mouth two times a day. Active loratadine 10 mg cap Take 10 mg by mouth once daily. Active cholecalciferol (VITAMIN D-3) 50 mcg (2,000 unit) tablet Take 2,000 Units by mouth once daily. Active metoclopramide HCl (REGLAN) 5 mg tablet Take 5 mg by mouth four times daily. Active rosuvastatin (CRESTOR) 40 mg tablet Take 40 mg by mouth once daily. Active linaCLOtide (LINZESS) 72 mcg capsuleIndicatio ns:Irritable bowel syndrome with constipation Take 1 capsule by mouth once daily. Administer on an empty stomach. Swallow whole; DO NOT crush or chew. 30 capsule 5 4 Active Social History Tobacco Use Types Packs/Day Years Used Date Smoking Tobacco: Never Assessed Area Deprivation Index Answer Date Robin rded National Score (1-100), lower number is lower ri sk 54 08/16/2023 State Score (1-10), lower number is lower risk 3 08/16/2023 Data from: https://www.[email or web address].medicine.[email or web address]/. Last address used for calculation [address] 08/16/2023 Comments Unknown Sex and Gender Information Value Date Recorded Sex Assigned at Not on file Legal Sex Female 8:46 AM EST Gender Identity Not on file Sexual Orientation Not on file Last Filed Vital Signs Vital Sign Reading Time Taken Comments Blood Pressure 117/58 08/16/2023 1:15 PM EDT Pulse 65 08/16/2023 1:15 PM EDT Temperature - - Respiratory Rate - - Oxygen Saturation - - Inhaled Oxygen Concentration - - Weight 67.8 kg (149 lb 7.5 oz) 08/16/2023 1:15 P M EDT Height 157.5 cm (5' 2 ) 08/16/2023 1:15 PM EDT Body Mass Index 27.34 08/16/2023 1:15 PM EDT Plan of Treatment Health Maintenance Due Date Last Done Comments Anxiety Screening 1963 Depression Screening 1963 Medicare Annual Wellness Visit 11/28/2009 Bone Density Screening 2009 Diabetes Screening 02/26/2023 02/27/2020 Advance Directive Discussion 05/31/2024 Influenza Vaccine (#1) 2025 3, 02/06/2022, 02/06/2021, Additional history exists DTaP,Tdap,Td Vaccine (2 - Td or Tdap) 08/24/2026 08/24/2016 Shingrix Vaccine Completed 09/13/2018, , 06/16/2011 Pneumococcal Vaccine: 50+ Completed 2022, 01/11/2018, 06/08/2016, Additional history exists RSV Vaccine Completed 05/22/2023 Insurance MEDICARE [employer] SUPPLEMENT Care Teams Industrial Yard Brake Coupler Relationship Specialty Start Date End Date Taty Noble CNP [id number] [address] Referring Family Medicine 06/10/23
--- OUTSIDE RECORDS SUMMARY | 2025-01-22 14:27 | XMS_ITS | CCD ---
Author Organization [facility] Care Team Providers Care Pet Care Associate Name Role Phone DO Tone Myrna K Primary Care Provider Tone DO Myrna K Attending Provider CHIKIS Jenkins Attending Provider DO Leonidas Sanchez Attending Provider DO Andra Campbell S Attending Provider [phone] CHIKIS Wan Attending Provider Brunner, DO Nathanael T Primary Care Provider Alvarenga DO Myrna K Primary Care Provider Alvarenga DO Myrna K Attending Provider Brunner DO Nathanael T Attending Provider Alvarenga, DO Myrna K Primary Care Provider CHIKIS Wan Attending Provider Brunner, DO Nathanael T Primary Care Provider Brunner, DO Nathanael T Attending Provider Brunner, DO Nathanael T Primary Care Provider Brunner, DO Nathanael T Primary Care Provider Brunner, DO Nathanael T Attending Provider CHIKIS Mcgee Attending Provider DO Andra Campbell S Attending Provider CATHY Kitchen Attending Provider Brunner, DO Nathanael T Primary Care Provider Brunner, DO Nathanael T Attending Provider CHIKIS Wan Attending Provider MD Kristine Benedict Attending Provider Brunner, DO Nathanael T Primary Care Provider CHIKIS Mcgee Attending Provider AdrianDO Andra S Attending Provider Brunner, DO Nathanael T Attending Provider [phone] CATHY Kitchen Attending Provider CHIKIS Wan Attending Provider MD Kristine Benedict Attending Provider MD Ricky Singh Emergency Provider Unavail able Brunner, DO Nathanael T Primary Care Provider [phone] EMILY Peterson Other Provider Unavailable MD Lion Hurtado Attending Provider Brunner, DO Nathanael T Primary Care Provider Brunner, DO Nathanael T Attending Provider [phone] CATHY Kitchen Attending Provider Brunner, DO Nathanael T Primary Care Provider Brunner, DO Nathanael T Attending Provider Care Provider, Urgent Attending Provider Unavail MD Kristine Acevedo Attending Provider Brunner, DO Nathanael T Primary Care Provider Brunner, DO Nathanael T Attending Provider MD Kristine Benedict Attending Provider Brunner, DO Nathanael T Primary Care Provider Brunner, DO Nathanael T Attending Provider Adrian, DO Andra S Attending Provider Brunner, DO Nathanael T Primary Care Provider CATHY Kitchen Attending Provider Adrian, DO Andra S Attending Provider Barga, DO Nicole [...] Lopez Attending Provider Taty Noble CNP Unavailable Barga, DO Nicole A Primary Care Provider Barga, DO Nicole A Attending Provider CHIKIS Wan Attending Provider CHIKIS Lopez Attending Provider AWAN, MIHIR S Referring Unavailable AWAN, MIHIR S Referring Unavailable AWAN, MIHIR S Referring Unavailable ANNABEL BANKS Attending Unavailable TATY NOBLE Referring Unavailable AWAN, MIHIR S Attending Unavailable TATY NOBLE Referring Unavailable Toya, SPECIAL DISTRIBUTION CLERK Meera Aragon Attending Provider Barga, DO Nicole A Primary Care Provider CHIKIS Wan Attending Provider Barga, DO Nicole A Attending Provider Barga, DO Nicole A Primary Care Provider Barga DO, Nicole A Primary Care Provider Barga DO, Nicole A Attending Provider Brown DOMeena Emergency Provider Unavail able Barga DO, Nicole A Primary Care Provider Barga DO, Nicole A Attending Provider Barga DO, Nicole A Primary Care Provider Barga DO, Nicole A Attending Provider Joy Olivares Attending Provider Hugh Julian MD Emergency Provider Unavailable Barga DO, Nicole A Primary Care Provider Meena Dallas DO Emergency Provider Unavail able Barga DO, Nicole A Attending Provider Joy Olivares Attending Provider Hugh Julian MD Emergency Provider Unavailable Barga DO, Nicole A Primary Care Provider Barga DO, Nicole A Attending Provider Tisha Banks Attending Provider Barga DO, Nicole A Primary Care Provider Barga DO, Nicole A Attending Provider Barga DO, Nicole A Primary Care Provider Barga DO, Nicole A Attending Provider Lion Hurtado MD Attending Provider Lion Hurtado MD Other Provider Joy Olivares Family Provider Barga DO, Nicole A Primary Care Provider [phone] Barga DO, Nicole A Attending Provider Lion Hurtado MD Attending Provider Lion Hurtado MD Other Provider Joy Olivares Family Provider Barga DO, Nicole A Primary Care Provider Barga DO, Nicole A Attending Provider Joy Olivares Attending Provider Barga DO, Nicole A Primary Care Provider [phone] Lion Hurtado MD Attending Provider Barga DO, Nicole A Attending Provider [phone] Mikal Gardiner Attending Provider Barga DO, Nicole A Primary Care Provider [phone] Barga DO, Nicole A Attending Provider [phone] Barga, Nicole A Attending Unavailable Barga, Nicole A Primary Care Unavailable Barga, Nicole A Primary Care Unavailable Hugh Julian Attending Unavailable Tisha Lopez Attending Unavailable Barga, Nicole A Primary Care Unavailable Barga, Nicole A Attending Unavailable Barga, Nicole A Primary Care Unavailable Barga, Nicole A Attending Unavailable Barga, Nicole A Primary Care Unavailable Barga, Nicole A Attending Unavailable Barga, Nicole A Primary Care Unavailable Lion Hurtado Attending Unavailable Barga, Nicole A Primary Care Unavailable Lion Hurtado Attending Unavailable Barga, Nicole A Primary Care Unavailable Mikal Wilcox Attending Unavailable Barga, Nicole A Primary Care Unavailable Mikal Wilcox Attending Unavailable Barga, Nicole A Primary Care Unavailable Barga, Nicole A Primary Care Unavailable Hugh Julian Attending Unavailable Allergies Allergy Classification Reported Allergen(s) Allergy Type Date of Onset Reaction(s) Facility Albuterol (1 source) Albuterol Drug Allergy 11-17-19 HEADACHE,NAUSE A [facility] Azole Antifungals (1 source) Fluconazole Drug Allergy 11-17-19 Headache [facility] Calcium (1 source) Calcium Drug Allergy 11-17-19 24 GI upset [facility] Cephalosporins (antibiotic) (1 source) Cephalexin Drug Allergy 12-03-19 Vomiting [facility] Doxycycline (1 source) Doxycycline Drug Allergy 11-17-19 TEARS UP STOMACH- CAUSES ALOT OF PAIN [facility] Nitrofurantoin (1 source) Nitrofurantoin Drug Allergy 11-17-19 Vomiting [facility] Opioid Agonists (2 sources) oxyCODONE Drug Allergy 11-17-19 Headache, vomiting, headache [facility] Penicillins (antibiotic) (1 source) Penicillins Drug Allergy 11-17-19 Rash [facility] Quinolones (antibiotic) (2 sources) Quinolones (Antibiotic) Drug Allergy 11-17-19 Rash, Unknown [facility] (20 sources) Albuterol; Translations: [ALBUTEROL] Drug Allergy 12-04-19 Intolerance [facility] (20 sources) Calcium; Translations: [CALCIUM] Drug Allergy 12-04-19 Intolerance [facility] Comment on above: GI upset (20 sources) Doxycycline; Translations: [DOXYCYCLINE] Drug Allergy 12-04-19 [facility] (20 sources) Fluconazole; Translations: [FLUCONAZOLE] Drug Allergy 12-04-19 [facility] (20 sources) HYDROcodone; Translations: [HYDROCODONE] Drug Allergy 12-04-19 GI Upset [facility] (20 sources) moxifloxacin; Translations: [MOXIFLOXACIN] Drug Allergy 12-04-19 Intolerance [facility] (20 sources) oxyCODONE Drug Allergy 12-04-19 Headache [facility] (20 sources) Penicillins; Translations: [Penicillins] Allergy to substance 12-04-19 Rash [facility] (20 sources) Quinolones (Antibiotic); Translations: [QUINOLONES] Allergy to substance 12-04-19 22 Unknown [facility] (7 sources) Iodinated Contrast Media Allergy to substance 12-04-19 headache, burning skin [facility] (20 sources) bee venom protein (honey bee); Translations: [BEE VENOM PROTEIN (HONEY BEE)] Propensity to adverse reactions 12-04-19 22 Anaphylaxis [facility] (20 sources) Triiodobenzoic Acids Allergy to substance 01-09-20 headache, burning skin [facility] (20 sources) Nitrofurantoin Drug Allergy 12-16-19 23 Vomiting [facility] Comment on above: and headache (8 sources) Iodine; Translations: [IODINE] Drug Allergy 08-16-19 [facility] (8 sources) NITROFURANTOIN, MACROCRYSTALS / Nitrofurantoin, Monohydrate; Translations: [NITROFURANTOIN MONOHYD/M-CRYST] Drug Allergy 08-16-19 24 [facility] (8 sources) Penicillin; Translations: [PENICILLIN] Drug Allergy 08-16-19 [facility] (10 sources) Cephalexin Drug Allergy 12-03-19 24 Vomiting [facility] (1 source) Albuterol Drug Allergy 12-26-19 25 [facility] (1 source) Calcium Drug Allergy 12-26-19 25 [facility] (1 source) Cephalexin Drug Allergy 06-12-19 25 [facility] (1 source) Doxycycline Drug Allergy 12-26-19 25 [facility] (1 source) Fluconazole Drug Allergy 12-26-19 25 [facility] (1 source) HYDROcodone Drug Allergy 12-26-19 25 [facility] (1 source) moxifloxacin Drug Allergy 12-26-19 25 [facility] (1 source) Nitrofurantoin Drug Allergy 12-26-19 25 [facility] (1 source) oxyCODONE Drug Allergy 12-26-19 25 [facility] (1 source) Iodinated Contrast Media Drug allergy (disorder) 12-26-19 25 [facility] (1 source) bee venom protein (honey bee) Drug allergy (disorder) 12-26-19 25 [facility] Medications Current Medications Medication Drug Class(es) Dates Sig (Normalized) Sig (Original) ALPRAZolam 0.25 mg oral tablet (20 sources) Benzodiazepine Start: 03-03-2024 Alprazolam Active MG PO March 03, 2024 12:00am Start: 04-19-2023 End: 11-09-2024 take 1 tablet by mouth twice daily as needed for anxiety Alprazolam 0.25 mg tablet Discontinued 0.25 MG PO twice a day as needed for anxiety 60 February 17, 2024 3:20pm March 30, 2024 8:29am Start: 01-21-2023 End: 04-19-2023 take 1 tablet by mouth twice daily as needed for anxiety Alprazolam 0.5 mg tablet Discontinued 0.5 MG PO twice a day as needed for anxiety 60 March 24, 2023 12:20pm April 19, 2023 11:54am Start: 12-26-2020 End: 01-21-2023 take 1 tablet by mouth twice daily as needed for anxiety Alprazolam 0.25 mg tablet Discontinued 0.25 MG PO twice a day as needed for anxiety 60 May 28, 2022 6:24pm August 13, 2022 3:10pm Comment on above: ALPRAZolam busPIRone hydrochloride 10 mg oral tablet (20 sources) Start: 04-08-2022 take 10 mg by mouth once daily Buspirone Active 10 MG PO Daily 90 April 08, 2022 3:25pm Start: 04-08-2022 End: 04-08-2022 take 1 tablet by mouth twice daily Buspirone 10 mg tablet Discontinued 10 MG PO twice a day April 08, 2022 1:00am April 08, 2022 3:27pm Start: 09-03-2021 End: 11-05-2021 take 1 tablet by mouth twice daily Buspirone 10 mg tablet Discontinued 10 MG PO twice a day 60 September 25, 2021 2:11pm November 05, 2021 3:09pm Cholecalciferol (20 sources) Vitamin D Start: 12-26-2020 take 1 capsule by mouth once daily Cholecalciferol (Vitamin D3) 50 mcg (2,000 unit) capsule Active 50 MCG PO Daily December 25, 2020 11:00pm Start: 12-26-2020 take 1 capsule by [facility] once daily Cholecalciferol (Vitamin D3) 50 mcg [...] 26, 2020 12:00am take 1 tablet by [facility] once daily cholecalciferol (VITAMIN D-3) 50 mcg (2,000 unit) tablet Take 2,000 Units by mouth once daily. 0 Active Comment on above: Take 2,000 Units by mouth once daily. Denosumab (Prolia) 60 mg/mL syringe (20 sources) Start: 08-26-2023 Denosumab (Prolia) 60 mg/mL [...] TOP four times daily April 08, 2022 12:00am apply to left [...] Tablet Active 10 MG PO Daily August 24, 2022 12:00am Start: 12-26-2020 End: 01-02-2021 take 1 capsule by mouth once daily Loratadine 10 mg capsule Discontinued 10 MG PO Daily December 26, 2020 12:00am January 02, 2021 11:06am take 1 capsule by [facility] once daily loratadine 10 mg cap Take 10 mg by mouth once daily. 0 Active Comment on above: Take 10 mg by mouth once daily. melatonin 3 mg oral tablet (3 sources) Start: 3 take 3 mg by mouth at bedtime Melatonin Active 3 MG PO bedtime February 12, 2023 12:00am Nitrofurantoin Monohyd/M-Cryst (4 sources) Start: 3 take 100 mg by mouth every twelve hours at mealtime Nitrofurantoin Monohyd/M-Cryst Active 100 MG PO Q12H 10 5 July 05, 2022 1:00am must administer with a meal/food Start: 07-05-2022 take 100 mg by mouth every twelve hours at mealtime Nitrofurantoin Monohyd/M-Cryst Active 100 MG PO Q12H 10 July 05, 2022 12:00am must administer with a [...] 02, 2021 12:00am January 12, 2021 12:00am olopatadine 7 mg/ml ophthalmic solution (5 sources) Histamine-1 Receptor Inhibitor Start: 01-21-2023 Olopatadine (Pataday Once Daily Relief) 0.7 % drops Active 1 DROP OP Daily 10 27January 21, 2023 12:00am pantoprazole 40 mg extended release oral [...] 2022 1:49pm April 12, 2023 10:15am Start: 12-26-2020 End: 06-18-2022 take 40 mg by mouth twice daily Pantoprazole Discontin ued 40 MG PO twice a day June 01, 2021 2:26pm June 17, 2022 11:31am take 1 tablet by linden th twice daily pantoprazole DR (PROTONIX) 40 mg tablet Take 40 mg by mouth two times a day. 0 Active Comment on above: Take 40 mg by mouth two times a day. Pantoprazole 40 mg tablet,delayed release (DR/EC) (20 sources) Start: 11-09-2024 take 1 tablet by mouth once daily Pantoprazole 40 mg tablet,delayed release (DR/EC) Active 40 MG PO Daily November 09, 2024 2:41pm Start: 08-31-2024 End: 11-09-2024 take 1 tablet by mouth twice daily Pantoprazole 40 mg tablet,delayed release (DR/EC) Discontinued 40 MG PO twice a day August 31, 2024 2:15pm November 09, 2024 2:41pm Start: 08-31-2024 take 1 tablet by linden th twice daily Pantoprazole 40 mg tablet,delayed release (DR/EC) Active 40 MG PO twice a day August 31, 2024 2:15pm Start: 07-05-2024 End: 08-31-2024 take 1 tablet by mouth once daily Pantoprazole 40 mg tablet,delayed release (DR/EC) Discontinued 40 MG PO Daily July 05, 2024 1:00am August 31, 2024 2:15pm Start: 07-05-2024 take 1 tablet by linden th once daily Pantoprazole 40 mg tablet,delayed release (DR/EC) Active 40 MG PO Daily July 05, 2024 1:00am Start: 07-05-2024 take 1 tablet by linden once daily Pantoprazole 40 mg tablet,delayed release (DR/EC) Active 40 MG PO Daily July 05, 2024 12:00am Start: 12-22-2023 End: 07-05-2024 take 1 tablet by mouth twice daily Pantoprazole 40 mg tablet,delayed release (DR/EC) Discontinued 40 MG PO twice a day 180 December 22, 2023 4:35pm July 05, 2024 6:05pm Start: 12-22-2023 End: 07-05-2024 take 1 tablet by mouth twice daily Pantoprazole 40 mg tablet,delayed release (DR/EC) Discontinued 40 MG PO twice a day 180 December 22, 2023 3:35pm July 05, 2024 5:05pm Start: 12-22-2023 take 1 tablet by linden [...] 40 MG PO Daily June 18, 2022 1:22am December 21, 2022 2:04pm Start: 06-17-2022 End: 06-18-2022 take 1 tablet by mouth twice daily Pantoprazole 40 mg tablet,delayed release (DR/EC) Discontinued 40 MG PO twice a day June 17, 2022 2:26pm June 18, 2022 12:22am Start: 06-17-2022 End: 06-18-2022 take 1 tablet by mouth twice daily Pantoprazole 40 mg tablet,delayed release (DR/EC) Discontinued 40 MG PO twice a day June 17, 2022 3:26pm June 18, 2022 1:22am Start: 06-17-2022 End: 06-17-2022 take 1 tablet by mouth once Pantoprazole 40 mg tablet, delayed release (DR/EC) Discontinued 40 MG PO once June 17, 2022 11:30am June 17, 2022 2:27pm Start: 06-17-2022 End: 06-17-2022 take 1 tablet by mouth once Pantoprazole 40 mg tablet, delayed release (DR/EC) Discontinued 40 MG PO once 180 June 17, 2022 12:30pm June 17, 2022 3:27pm Start: 06-01-2021 End: 06-17-2022 take 1 tablet by mouth twice daily Pantoprazole 40 mg tablet,delayed release (DR/EC) Discontinued 40 MG PO twice a day June 01, 2021 2:26pm June 17, 2022 11:31am Start: 06-01-2021 End: 06-17-2022 take 1 tablet by mouth twice daily Pantoprazole 40 mg tablet,delayed release (DR/EC) Discontinued 40 MG PO twice a day June [...] 3350 (Miralax) 17 gram powder in packet (20 sources) Start: 11-17-2023 Polyethylene G lycol 3350 (Miralax) 17 gram powder in packet Active 17 GM PO Daily November 16, 2023 11:00pm Start: 11-17-2023 Polyethylene [...] PO Daily November 17, 2023 12:00am rosuvastatin 40 mg oral capsule (20 sources) HMG-CoA Reductase Inhibitor Start: 03-03-2024 Rosuvastatin Active MG PO March 03, 2024 12:00am Start: 12-26-2020 End: 10-25-2024 take 1 tablet by mouth once daily Rosuvastatin 40 mg tablet Active 40 MG PO Daily 90 90 October 25, 2024 5:12pm Start: 12-26-2020 End: 01-02-2021 take 1 tablet by mouth at bedtime Rosuvastatin 20 mg tablet Discontinued 20 MG PO bedtime December 26, 2020 12:00am January 02, 2021 11:07am take 1 tablet by linden th once daily rosuvastatin (CRESTOR) 40 mg tablet Take 40 mg by mouth once daily. 0 Active Comment on above: Take 40 mg by mouth once daily. Saccharomyces boulardii (13 sources) Start: take 1 capsule by mouth once daily Saccharomyces boulardii Active 1 CAP PO Daily March 30, 2024 12:00am Start: 03-30-2024 take 1 capsule by mo uth once daily Saccharomyces boulardii Active 1 CAP PO Daily March 29, 2024 11:00pm Start: 03-30-2024 Saccharomyces boulardii (Daily Probiotic (S. boulardii)) Active PO Daily March 29, 2024 11:00pm 24 hr venlafaxine 37.5 mg extended release oral tablet (20 sources) Serotonin and Norepinephrine Reuptake Inhibitor Start: 07-05-2024 take 1 capsule by mouth once daily Venlafaxine 37.5 mg capsule,extended release 24hr Active 37.5 MG PO Daily July 05, 2024 1:00am Start: 07-14-2023 take 37.5 mg by mout h once daily Venlafaxine Active 37.5 MG PO Daily 90 July 14, 2023 12:00pm Start: 07-14-2023 End: 07-03-2024 take 1 capsule by mouth once daily Venlafaxine 37.5 mg capsule,extended release 24hr Discontinued 37.5 MG PO Daily 90 90 January 24, 2024 2:59pm March 30, 2024 8:26am Start: 01-28-2023 End: 02-12-2023 take 1 tablet by mouth once daily Venlafaxine 37.5 mg tablet Discontinued 37.5 MG PO Daily January 28, 2023 12:00am January 28, 2023 12:12pm Start: 01-28-2023 End: 02-12-2023 take 1 capsule by mouth once daily Venlafaxine 37.5 mg capsule,extended release 24hr Discontinued 37.5 MG PO Daily January 28, 2023 12:00am February 12, 2023 1:13pm Completed/Discontinued Medications Medication Drug Class(es) Dates Sig [...] Albuterol Sulfate 90 mcg/actuation HFA aerosol inhaler (17 sources) Start: 10-01-2022 End: 11-21-2022 take 1 [...] Ascorbate Calcium (Vitamin C) 500 mg tablet (17 sources) Start: 12-26-2020 End: 01-02-2021 take 1 [...] Tablet Discontinued 500 MG PO Daily March 12, 2021 12:00am August 28, 2022 2:58pm ascorbic acid, v itamin C, (VITAMIN C) 500 mg tablet Take 1 tablet by mouth every 48 hours. 0 Active Comment on above: Take 1 tablet by linden th every 48 hours. azithromycin 250 mg oral tablet (20 sources) Macrolide Antimicrobial Start: 10-01-2022 End: 11-21-2022 Azithromycin (Zithromax) 250 mg tablet Discontinued 0 PO .COMPLEX October 01, 2022 12:00am November 21, 2022 2:46pm For 250 mg dose pack: take 500 mg today (day 1), then 250 mg for 4 days (days 2-5) PO Start: 05-12-2021 End: 05-21-2021 take 2-5 tablets by mouth once daily Azithromycin 250 mg tablet Discontinued 0 PO .COMPLEX 6 May 12, 2021 1:00am May 21, 2021 [...] as needed for cough May 15, 2021 1:00am June 02, 2021 12:22pm cephalexin 500 mg oral tablet (20 sources) Cephalosporin Antibacterial Start: 10-28-2024 End: 11-09-2024 take 1 capsule by mouth twice daily Cephalexin 500 mg capsule Discontinued 500 MG PO twice a day October 28, 2024 12:00am November 09, 2024 2:15pm Start: 03-03-2024 take 500 mg by mouth three times daily Cephalexin Active 500 MG PO Three times daily 15 March 03, 2024 12:00am Start: 10-16-2023 End: 11-17-2023 take 1 capsule by mouth every six hours Cephalexin 500 mg capsule Discontinued 500 MG PO Q6H 40 October 16, 2023 12:00am November 17, 2023 2:48pm Start: 08-24-2022 End: 08-26-2022 take 1 capsule by mouth twice daily Cephalexin 500 mg capsule Discontinued 500 MG PO twice a day 14 August 24, 2022 12:00am August 26, 2022 2:01pm Start: 06-30-2022 End: 07-02-2022 take 1 capsule by mouth every eight hours Cephalexin 500 mg capsule Discontinued 500 MG PO Q8H June 30, 2022 1:00am July 02, 2022 12:59pm Start: 08-05-2021 End: 09-03-2021 take 1 capsule by mouth every eight hours Cephalexin 500 mg capsule Discontinued 500 MG PO Q8H August 05, 2021 1:00am September 03, 2021 2:13pm fluconazole 150 mg oral tablet (20 sources) Azole Antifungal Start: 08-09-2024 End: 11-09-2024 Fluconazole 150 mg tablet Discontinued 150 MG PO Q3D August 09, 2024 12:00am November 09, 2024 2:17pm may repeat second dose 72 hrs after first dose if symptoms persist Start: 07-25-2024 End: 08-09-2024 take 1 tablet by mouth once Fluconazole 150 mg tablet Discontinued 150 MG PO once July 25, 2024 1:00am August 09, 2024 2:37pm Start: 12-03-2023 End: 01-24-2024 Fluconazole 150 mg tablet Di scontinued 150 MG PO Q3D December 03, 2023 12:00am January 24, 2024 2:28pm may repeat second dose 72 hrs after first dose if symptoms persist Start: 06-30-2022 End: 08-13-2022 Fluconazole (Diflucan) 150 m g tablet Discontinued 150 MG PO Q3D June 30, 2022 1:00am August 13, 2022 3:08pm may repeat second dose 72 hrs after first dose if symptoms persist Only take if you develop signs of a yeast infection Start: 11-29-2021 End: 02-04-2022 Fluconazole 150 mg tablet Di scontinued 150 MG PO .COMPLEX 2 November 29, 2021 12:00am February 04, 2022 1:47pm 150 mg PO; Take 1 tablet now, may repeat in 72 hours if symptoms persist fosfomycin 3000 mg powder fo r oral solution (20 sources) Start: 12-19-2022 End: 12-21-2022 Fosfomycin Tromethamine 3 gr am packet Discontinued 1 PACKET PO once December 19, 2022 12:00am December 21, 2022 2:04pm Start: 12-19-2022 End: 12-21-2022 Fosfomycin Tromethamine Disc [...] Comment on above: Take 1 capsule by [facility] once daily. Administer on an empty stomach. Swallow whole; DO NOT crush or chew. Methenamine (20 sources) Start: 05-18-2024 End: 07-05-2024 Methenamine Hippurate 1 gram tablet Discontinued 1 GM PO twice a day 60 May 18, 2024 12:42pm July 05, 2024 6:02pm do not start until finished with bactrim treatment for current UTI Start: 05-18-2024 End: 07-05-2024 Methenamine Hippurate 1 gram tablet Discontinued 1 GM PO twice a day 60 May 18, 2024 11:42am July 05, 2024 5:02pm do not start until finished with bactrim treatment for current UTI Start: 05-18-2024 Methenamine Hi ppurate 1 gram tablet Active 1 GM PO twice a day 60 May 18, 2024 11:42am do not start until finished with bactrim treatment for current UTI Start: 05-18-2024 End: 05-18-2024 Methenamine Hippurate 1 gram tablet Discontinued 1 GM PO twice a day 180 May 18, 2024 1:00am May 18, 2024 12:42pm do not start until finished with bactrim treatment for current UTI Start: 05-18-2024 End: 05-18-2024 Methenamine Hippurate 1 gram tablet Discontinued 1 GM PO twice a day 180 May 18, 2024 12:00am May 18, 2024 11:42am do not start until finished with bactrim treatment for current UTI metoclopramide 10 mg oral tablet (20 sources) Dopamine-2 Receptor Antagonist Start: 02-17-2024 End: 03-27-2024 take 1 tablet by mouth twice daily Metoclopramide Hcl (Reglan) 10 mg tablet Discontinued 10 MG PO twice a day 28 February 17, 2024 3:15pm March 27, 2024 9:13am Start: 05-14-2023 End: 11-17-2023 take 1 tablet by mouth twice daily Metoclopramide Hcl (Reglan) 10 mg tablet Discontinued 10 MG PO twice a day 42 May 14, 2023 1:00am November 17, 2023 2:48pm can take 1 tab twice daily for next 3 weeks until GI appointment Start: 02-24-2023 End: 05-14-2023 take 1 tablet by mouth three times daily as needed for nausea and vomiting Metoclopramide Hcl (Reglan) 5 mg tablet Discontinued 5 MG PO three times a day as needed for nausea and vomiting 60 February 24, 2023 9:09am May 14, 2023 2:20pm use as sparingly as possible, just as needed Start: 07-02-2022 End: 11-21-2022 take 1 tablet by mouth three times daily as needed for nausea and vomiting Metoclopramide Hcl (Reglan) 5 mg tablet Discontinued 5 MG PO three times a day as needed for nausea and vomiting September 25, 2022 12:30pm November 21, 2022 2:47pm Start: 06-17-2022 End: 06-30-2022 take 1 tablet by mouth three times daily Metoclopramide Hcl (Reglan) 5 mg tablet Discontinued 5 MG PO three times a day 42 June 17, 2022 1:00am June 30, 2022 1:15pm take 1 tablet by linden four times daily metoclopramide HCl (REGLAN) 5 mg tablet Take 5 mg by mouth four times daily. 0 Active Comment on above: Take 5 mg by mouth f our times daily. Miconazole (13 sources) Azole Antifungal Start: 03-30-2024 End: 07-03-2024 Miconazole Nitrate 2 % cream Discontinued 1 ESTHER TOP bedtime 27 12March 30, 2024 12:00am July 03, 2024 11:38am Start: 03-30-2024 End: 07-03-2024 Miconazole Nitrate 2 % cream Discontinued 1 ESTHER TOP bedtime 27 12March 29, 2024 11:00pm July 03, 2024 10:38am Start: 03-30-2024 Miconazole Nit rate 2 % cream Active 1 ESTHER TOP bedtime 27 12March 29, 2024 11:00pm Multivitamin preparation (20 sources) Start: 12-26-2020 End: [...] TAB PO Daily December 26, 2020 12:00am Multivitamin tablet (20 sources) Start: 05-18-2024 End: 08-09-2024 take 1 tablet by mouth once daily Multivitamin tablet Discontinued 1 TAB PO Daily May 18, 2024 11:45am August 09, 2024 2:37pm Start: 05-18-2024 take 1 tablet by linden th once daily Multivitamin tablet Active 1 TAB PO Daily May 18, 2024 10:45am Start: 05-18-2024 take 1 tablet by linden th every other day Multivitamin tablet Active 1 TAB PO every other day May 18, 2024 10:45am Start: 02-17-2024 End: 05-18-2024 take 1 tablet by mouth once daily Multivitamin tablet Discontinued 1 TAB PO Daily February 17, 2024 12:00am May 18, 2024 11:47am Start: 02-17-2024 End: 05-18-2024 take 1 tablet by mouth once daily Multivitamin tablet Discontinued 1 TAB PO Daily February 16, 2024 11:00pm May 18, 2024 10:47am Start: 02-17-2024 take 1 tablet by lidnen th once daily Multivitamin tablet Active 1 TAB PO Daily February 16, 2024 11:00pm Start: 02-17-2024 take 1 tablet by linden th once daily Multivitamin tablet Active 1 TAB [...] 12:00am August 28, 2022 2:58pm Nitrofurantoin Monohyd/M-Cryst (Macrobid) 100 mg capsule (20 sources) Start: 04-21-2024 End: 05-18-2024 take 1 capsule by mouth every twelve hours at mealtime Nitrofurantoin Monohyd/M-Cryst (Macrobid) 100 mg capsule Discontinued 100 MG PO Q12H 10 April 21, 2024 1:00am May 18, 2024 11:46am must administer with a meal/food Start: 04-21-2024 End: 05-18-2024 take 1 capsule by mouth every twelve hours at mealtime Nitrofurantoin Monohyd/M-Cryst (Macrobid) 100 mg capsule Discontinued 100 MG PO Q12H 10 April 21, 2024 12:00am May 18, 2024 10:46am must administer with a meal/food Start: 04-21-2024 take 1 capsule by mo ut every twelve hours at mealtime Nitrofurantoin Monohyd/M-Cryst (Macrobid) 100 mg capsule Active 100 MG PO Q12H 10 April 21, 2024 12:00am must administer with a meal/food Start: 11-21-2022 [...] Start: 11-21-2022 take 1 capsule by mo ut twice daily at mealtime Nitrofurantoin Monohyd/M-Cryst (Macrobid) [...] 100 MG PO twice a day 14 7 November 21, 2022 12:00am November 21, 2022 3:14pm must administer with a meal/food Nystatin (Nystop) 100,000 unit/gram powder (20 sources) Start: 03-30-2024 End: 07-05-2024 Nystatin (Nystop) 100,000 unit/gram powder Discontinued 1 ESTHER TOP twice a day as needed March 30, 2024 7:57am July 05, 2024 6:02pm Start: 03-30-2024 End: 07-05-2024 Nystatin (Nystop) 100,000 un it/gram powder Discontinued 1 ESTHER TOP twice a day as needed March 30, 2024 6:57am July 05, 2024 5:02pm Start: 03-30-2024 Nystatin (Nyst op) 100,000 unit/gram powder Active 1 ESTHER TOP twice a day as needed March 30, 2024 6:57am Start: 03-27-2024 End: 03-30-2024 Nystatin (Nystop) 100,000 un it/gram powder Discontinued 1 ESTHER TOP twice a day March 27, 2024 12:00am March 30, 2024 7:58am Start: 03-27-2024 End: 03-30-2024 Nystatin (Nystop) 100,000 un it/gram powder Discontinued 1 ESTHER TOP twice a day March 26, 2024 11:00pm March 30, 2024 6:58am Start: 03-27-2024 Nystatin (Nyst op) 100,000 unit/gram powder Active 1 ESTHER TOP twice a day March 27, 2024 12:00am Nystatin 100,000 unit/gram cream (17 sources) Start: 01-02-2021 End: 01-12-2021 Nystatin 100,000 unit/gram c ream Discontinued 1 ESTHER TOP three times a day 10 January 01, 2021 11:00pm January 10, 2021 [...] 12, 2021 12:00am Nystatin 100,000 unit/gram powder (20 sources) Start: 12-03-2023 End: 01-24-2024 Nystatin 100,000 unit/gram p owder Discontinued 1 ESTHER TOP twice a day December 03, 2023 2:40pm January 24, 2024 1:28pm Start: 12-03-2023 End: 01-24-2024 Nystatin 100,000 unit/gram p owder Discontinued 1 ESTHER TOP twice a day December 03, 2023 3:40pm January 24, 2024 [...] % drops Discontinued 1 DROP EYE-BOTH once 2.5 November 04, 2021 11:00pm February 04, 2022 12:47pm Start: 11-05-2021 End: 02-04-2022 take 1 drop(s) into the eye(s) once daily Olopatadine (Pataday Once Daily Relief) 0.2 % drops Discontinued 1 DROP EYE-BOTH once 2.5 November 05, 2021 12:00am February 04, 2022 1:47pm Start: 11-05-2021 take 1 drop(s) into the eye(s) once daily Olopatadine (Pataday Once Daily Relief) 0.2 % drops Active 1 DROP EYE-BOTH once 2.November 05, 2021 12:00am Ondansetron 4 mg tablet,disintegrating (14 sources) Start: 03-27-2024 End: 05-18-2024 take 1 tablet by mouth every six hours as needed for nausea and vomiting Ondansetron 4 mg tablet,disintegrating Discontinued 4 MG PO Q6H as needed for nausea and vomiting March 27, 2024 12:00am May 18, 2024 11:46am Start: 03-27-2024 End: 05-18-2024 take 1 tablet by mouth every six hours as needed for nausea and vomiting Ondansetron 4 mg tablet,disintegrating Discontinued 4 MG PO Q6H as needed for nausea and vomiting March 26, 2024 11:00pm May 18, 2024 10:46am Start: 03-27-2024 take 1 tablet by linden [...] nausea and vomiting March 27, 2024 12:00am Polymyxin B Sulf-Trimethopri m (Polytrim) 10,000 [...] 20 MG PO twice a day 10 October 01, 2022 12:00am November 21, 2022 2:47pm Start: 05-21-2021 End: 06-02-2021 take 1 tablet by mouth twice daily Prednisone 20 mg tablet Discontinued 20 MG PO twice a day 10 May 21, 2021 1:00am June 02, 2021 12:21pm sertraline 100 mg oral tablet (20 sources) Serotonin Reuptake Inhibitor Start: 04-12-2023 End: 07-14-2023 take 1 tablet by mouth once daily Sertraline 100 mg tablet Discontinued 100 MG PO Daily April 12, 2023 1:00am July 14, 2023 12:00pm Start: 12-21-2022 End: 02-12-2023 Sertraline 100 mg tablet Discontinued 150 MG PO Daily December 21, 2022 2:51pm February 12, 2023 12:39pm Start: 12-21-2022 End: 02-12-2023 take 150 mg by mouth once daily Sertraline Discontinue d 150 MG PO Daily December 21, 2022 2:51pm February 12, 2023 12:39pm Start: 12-26-2020 End: 12-21-2022 take 1 tablet by mouth once daily Sertraline 100 mg tablet Discontinued 100 MG PO Daily August 27, 2021 11:52am December 21, 2022 2:51pm Sucralfate (20 sources) Aluminum Complex Start: 05-14-2023 End: 03-30-2024 take 1 tablet by mouth every six hours as needed Sucralfate (Carafate) 1 gram tablet Discontinued 1 GM PO Q6H as needed for stomach upset May 14, 2023 1:00am March 30, 2024 7:58am Start: 05-14-2023 End: 03-30-2024 take 1 tablet [...] a day 60 June 02, 2022 2:22pm June 17, 2022 11:30am Start: 06-02-2022 End: 06-17-2022 take 1 tablet by mouth twice daily Sucralfate 1 gram tablet Discontinued 1 GM PO twice a day 60 June 02, 2022 3:22pm June 17, 2022 12:30pm Start: 06-02-2022 End: 06-17-2022 take 1 g by mouth twice daily Sucralfate Discontinued 1 GM PO twice a day 60 June 02, 2022 3:22pm June 17, 2022 12:30pm Start: 06-02-2022 End: 06-17-2022 take 1 g by mouth twice daily Sucralfate Discontinued 1 GM PO twice a day 60 June 02, 2022 2:22pm June 17, 2022 [...] 31, 2021 12:00am May 12, 2021 6:53pm Sulfamethoxazole / Trimethoprim (20 sources) Dihydrofolate Reductase Inhibitor Antibacterial, Sulfonamide Antimicrobial Start: 10-24-2024 End: 11-09-2024 take 1 tablet by mouth three times daily Sulfamethoxazole-Trimethoprim (Bactrim Ds) 800-160 mg tablet Discontinued 1 TAB PO twice a day October 24, 2024 12:00am November 09, 2024 2:16pm Stop abx after 3 days (6 doses) if the urine sxs are gone Start: 10-24-2024 take 1 tablet by linden th three times daily Sulfamethoxazole-Trimethoprim (Bactrim D s) 800-160 mg tablet Active 1 TAB PO twice a day October 24, 2024 12:00am Stop abx after 3 days (6 doses) if the urine sxs are gone Start: 07-12-2024 End: 08-09-2024 take 1 tablet by mouth twice daily Sulfamethoxazole-Trimethoprim (Bactrim D s) 800-160 mg tablet Discontinued 1 TAB PO twice a day July 12, 2024 1:00am August 09, 2024 2:37pm Start: 07-12-2024 take 1 tablet by linden th twice daily Sulfamethoxazole-Trimethoprim (Bactrim D s) 800-160 mg tablet Active 1 TAB PO twice a day July 12, 2024 12:00am Start: 06-12-2024 End: 07-03-2024 take 1 tablet by mouth every twelve hours Sulfamethoxazole-Trimethoprim (Bactrim D s) 800-160 mg tablet Discontinued 1 TAB PO Q12H 6 June 12, 2024 1:00am July 03, 2024 11:39am Hold methenamine with on generic bactrim antibiotic Start: 06-12-2024 End: 07-03-2024 take 1 tablet by mouth every twelve hours Sulfamethoxazole-Trimethoprim (Bactrim D s) 800-160 mg tablet Discontinued 1 TAB PO Q12H 6 June 12, 2024 12:00am July 03, 2024 10:39am Hold methenamine with on generic bactrim antibiotic Start: 06-12-2024 take 1 tablet by linden th every twelve hours Sulfamethoxazole-Trimethoprim (Bactrim D s) 800-160 mg tablet Active 1 TAB PO Q12H 6 June 12, 2024 12:00am Hold methenamine with on generic bactrim antibiotic Start: 05-18-2024 End: 06-12-2024 take 1 tablet by mouth twice daily Sulfamethoxazole-Trimethoprim (Bactrim D s) 800-160 mg tablet Discontinued 1 TAB PO twice a day 6 May 18, 2024 1:00am June 12, 2024 11:13am Start: 05-18-2024 End: 06-12-2024 take 1 tablet by mouth twice daily Sulfamethoxazole-Trimethoprim (Bactrim D s) 800-160 mg tablet Discontinued 1 TAB PO twice a day 6 May 18, 2024 12:00am June 12, 2024 10:13am Start: 03-03-2024 Sulfamethoxazo le-Trimethoprim Active TAB PO March 03, 2024 12:00am [...] 1 TAB PO twice a day 6 February 21, 2024 12:00am March 27, 2024 8:49am Start: 02-21-2024 take 1 tablet by linden th twice daily Sulfamethoxazole-Trimethoprim (Bactrim D s) 800-160 mg tablet Active 1 TAB PO twice a day 6 February 21, 2024 12:00am Start: 01-16-2024 End: [...] Start: 08-13-2023 take 1 tablet by linden th twice [...] TAB PO Q12H 25 12April 12, 2023 12:00am May 14, 2023 1:21pm Start: 04-12-2023 take 2 tablets by mo uth every twelve hours Sulfamethoxazole-Trimethoprim (Bactrim) 400-80 mg tablet Active 2 TAB PO Q12H 25 12April 12, 2023 12:00am Start: 12-21-2022 End: 01-21-2023 [...] 1 TAB PO twice a day 6 July 02, 2022 12:00am July 30, 2022 [...] 1 TAB PO twice a day 6 July 02, 2022 12:00am July 30, 2022 2:15pm Start: 07-02-2022 take 1 tablet by linden th twice daily Sulfamethoxazole-Trimethoprim Active 1 T AB PO twice a day 6 July 02, 2022 12:00am Triamcinolone (20 sources) Corticosteroid Start: 05-18-2024 End: 07-03-2024 Triamcinolone Acetonide 0.1 % cream Discontinued 1 ESTHER TOP twice a day as needed for outbreak/dermatitis May 18, 2024 12:34pm July 03, 2024 11:39am as needed use twice daily for up to 2 weeks at a time for affected areas Start: 05-18-2024 End: 07-03-2024 Triamcinolone Acetonide 0.1 % cream Discontinued 1 ESTHER TOP twice a day as needed for outbreak/dermatitis May 18, 2024 11:34am July 03, 2024 10:39am as needed use twice daily for up to 2 weeks at a time for affected areas Start: 05-18-2024 Triamcinolone Acetonide 0.1 % cream Active 1 ESTHER TOP twice a day as needed for outbreak/dermatitis May 18, 2024 11:34am as needed use twice daily for up to 2 weeks at a time for affected areas Start: 01-24-2024 End: 05-18-2024 Triamcinolone Acetonide 0.1 % cream Discontinued 1 ESTHER TOP twice a day as needed for outbreak/dermatitis 30 January 24, 2024 12:00am May 18, 2024 12:34pm as needed use twice daily for up to 2 weeks at a time for affected areas Start: 01-24-2024 End: 05-18-2024 Triamcinolone Acetonide 0.1 % cream Discontinued 1 ESTHER TOP twice a day as needed for outbreak/dermatitis 30 January 23, 2024 11:00pm May 18, 2024 11:34am as needed use twice daily for up to 2 weeks at a time for affected areas Start: 01-24-2024 Triamcinolone Acetonide 0.1 % cream Active 1 ESTHER TOP twice a day as needed for outbreak/dermatitis 30 January 23, 2024 11:00pm as needed use twice daily for up to 2 weeks at a time for affected areas Start: 01-24-2024 Triamcinolone Acetonide 0.1 % cream Active 1 ESTHER TOP twice a day as needed for outbreak/dermatitis 30 January 24, 2024 12:00am as needed use twice daily for up to 2 weeks at a time for affected areas Problems Active Problems Problem Classification Problem Date [...] chronic] 10-01-2022 Episodic Coagulation and hemorrhagic disorders (20 sources) Senile purpura; Translations: [Other nonthrombocytopenic purpura] [...] Comment on above: bilateral Headache; including migraine (2 sources) Headache; including migraine 04-12-2023 Inflammation; infection of eye (except that caused by tuberculosis or sexually transmitteddisease) (20 sources) Episcleritis; Translations: [Unspecified episcleritis, unspecified eye] 11-21-2022 Episodic Inflammatory diseases of female pelvic organs (4 sources) Acute vaginitis; Translations: [Vaginitis and vulvovaginitis, unspecified] 10-14-2023 Episodic Menopausal disorders (4 sources) Postmenopausal atrophic vaginitis; Translations: [Postmenopausal atrophic vaginitis] 11-29-2021 Chronic Mood disorders (20 sources) Severe recurrent major depression without psychotic features; Translations: [Major depressive disorder, recurrent severe without psychotic features] 05-14-2023 Chronic Mycoses (15 sources) Candidal vulvovaginitis; Translations: [Acute candidiasis of vulva and vagina] 10-14-2023 Episodic Nausea and vomiting (18 sources) Nausea; Translations: [Nausea] 03-27-2024 Episodic Osteoporosis [...] [Tinnitus, unspecified] 01-21-2023 Episodic Other eye disorders (20 sources) Dry eyes; Translations: [Dry eye syndrome of bilateral lacrimal glands] 05-14-2023 Episodic Other eye disorders (3 sources) Dry eye syndrome of bilateral lacrimal glands; Translations: [Tear film insufficiency, unspecified] 05-14-2023 Episodic Other eye disorders (12 sources) Tear film insufficiency; Translations: [Dry eye syndrome of unspecified lacrimal gland] 03-30-2024 Episodic Other eye disorders (4 sources) Dry eye syndrome of unspecified lacrimal gland; Translations: [Tear film insufficiency, unspecified] 03-30-2024 Episodic Other gastrointestinal disorders (20 sources) Chronic idiopathic constipation; Translations: [Chronic idiopathic constipation] 08-16-2023 Chronic Other gastrointestinal disorders (1 source) Irritable bowel syndrome characterized by constipation; Translations: [Irritable bowel syndrome with constipation] 08-16-2023 Chronic Other gastrointestinal disorders (4 sources) Chronic idiopathic constipation; Translations: [Constipation, unspecified] Onset: 03-1811-17-2023 Chronic Other gastrointestinal disorders (20 sources) Abdominal bloating; Translations: [Abdominal distension (gaseous)] 03-12-2021 Episodic Other gastrointestinal disorders (20 sources) Dark stools; Translations: [Other fecal abnormalities] 06-17-2022 Episodic Other gastrointestinal disorders (10 sources) Other fecal abnormalities; Translations: [Nonspecific abnormal findings in stool contents] 06-17-2022 Episodic Other gastrointestinal disorders (10 sources) Constipation, unspecified; Translations: [Constipation, unspecified] 08-03-2023 Episodic Other gastrointestinal disorders (10 sources) Abdominal distension (gaseous); Translations: [Flatulence, eructation, [...] joint, ankle and foot] 04-08-2022 Episodic Other non-traumatic joint disorders (3 sources) Pain in right hip; Translations: [Pain in joint, pelvic region and thigh] 08-09-2024 Episodic Other skin disorders (20 sources) Eruption; Translations: [Rash and other nonspecific skin eruption] 01-02-2021 Episodic Other upper respiratory infections (20 sources) Maxillary sinusitis; Translations: [Chronic maxillary sinusitis] 01-02-2021 Chronic Other upper respiratory infections (10 sources) Acute sinusitis, unspecified; Translations: [Acute sinusitis, unspecified] 10-01-2022 Episodic Residual codes; unclassified (20 sources) Postmenopausal state; Translations: [Asymptomatic menopausal state] 12-04-2021 Episodic Residual codes; unclassified (20 sources) Memory impairment; Translations: [Other amnesia] 04-08-2022 Episodic Residual codes; unclassified (12 sources) Other amnesia; Translations: [Memory loss] 04-08-2022 Episodic Spondylosis; intervertebral disc disorders; other back problems (20 sources) Low back pain; Translations: [Chronic lumbosacral pain] Onset: 11-29-2021 Episodic Thyroid disorders (20 sources) Hypothyroidism; Translations: [Hypothyroidism, unspecified] 02-04-2022 Chronic Unclassified (5 sources) Presented to ED with a complaint of Stomach pain 08-24-2022 Unclassified (6 sources) Presented to ED with a complaint of Sick to stomach, baez when urinating 03-27-2024 Urinary tract infections (20 sources) Urinary tract infectious disease; Translations: [Urinary tract infection, site not specified] 08-05-2021 Episodic Urinary tract infections (5 sources) Urinary tract infections 01-16-2024 Past or Other Problems Problem Classification Problem Date Documented Date Episodic/Chronic Genitourinary symptoms and ill-defined conditions (20 sources) Dysuria; Translations: [Dysuria] Onset: 02-17-2024 06-30-2022 Episodic Other screening for suspected conditions (not mental disorders or infectious disease) (20 sources) Patient encounter status; Translations: [Encounter for screening mammogram for malignant neoplasm of breast] Onset: 08-02-2024 06-17-2021 Episodic Residual codes; unclassified (20 sources) Asymptomatic menopausal state; Translations: [Asymptomatic postmenopausal status (age-related) (natural)] Onset: 07-25-2024 01-08-2022 Episodic Results Test Name Value Interpretation Reference Range Facility [id number] 01-17-[address] [address] XRay Report Signed Patient Name: Sherry Ash Date of : 1945 Account #:[id number] Age/Sex: 79 / F Location: ED Attending physician: Ordering Provider: Hugh Julian MD Date of Service: 01/17/25 Procedure(s): XR chest 2V HISTORY:: Cough Study: PA and lateral chest dated 01/17/2025. 9:54 a.m. Findings: Comparison is made with 02/19/2020 exam. The heart size is normal. A patchy infiltrate is present in the left lower lobe. The rest of the lungs clear. Impression: Mild patchy left lower lobe pneumonia. Mihir Myers , 01/17/2025 10:00 Dictated By: Mihir Myers MD Signed By: 01/17/25 1000 DD/ 1000 TD/TT: 01/17/25 1000 [employer] Fuel Engineer: NATALIE Exam/Order Verified? Y Exam Explained to Patient/Family? Y Was Patient Shielded? N Is Patient ? N Consent Form Completed? Hx Last Menstrual Period: Does Patient have a Diabetic Device? No Diabetic Device Type: Was the Diabetic Device Removed? If NO: was Removal Consent form completed? Patient was informed of radiation exposure prior to scan? Y Verified by Technologist:[id number] Comment: [id number] cc: DO Hugh Bustos MD Normal [facility] Complete Blood Count with Di ffon 01-17-2025 Basophils Absolute Auto 0.0 10*3/uL Low 0.1-0.2 [facility] Comment on above: Performed By: #### U R #### ML , Basophils/100 WBC (Bld) 0 % Normal 0-1 [facility] Comment on above: Performed By: #### U R #### ML , Eosinophils (Bld) [#/Vol] 0.0 10*3/uL Normal 0.0-0.4 [facility] Comment on above: Performed By: #### U R #### ML , Eosinophils/100 WBC (Bld) 0 % Low 2-5 [facility] Comment on above: Performed By: #### U R #### ML , Erythrocyte distribution width (RBC) [Ratio] 14.6 % Normal 12.2-15.8 [facility] Comment on above: Performed By: #### U R #### ML , Hematocrit (Bld) [Volume fraction] 34.4 % Low 34.6-44.1 [facility] Comment on above: Performed By: #### U R #### ML , Hemoglobin (Bld) [Mass/Vol] 11.4 g/dL Low 11.7-14.9 [facility] Comment on above: Performed By: #### U R #### ML , Lymphocytes (Bld) [#/Vol] 1.1 10*3/uL Normal 0.5-3.5 [facility] Comment on above: Performed By: #### U R #### ML , Lymphocytes/100 WBC (Bld) 18 % Low 20-35 [facility] Comment on above: Performed By: #### U R #### ML , MCH (RBC) [Entitic mass] 27.6 pg Low 27.8-33.2 [facility] Comment on above: Performed By: #### U R #### ML , MCV (RBC) [Entitic vol] 83.3 fL Normal 83.0-97.4 F [facility] Comment on above: Performed By: #### U R #### ML , Mean Corpuscular HGB Conc 33.1 g/dL Normal 32.7-34.8 [facility] Comment on above: Performed By: #### U R #### ML , Monocytes (Bld) [#/Vol] 0.5 10*3/uL Normal 0.2-0.8 [facility] Comment on above: Performed By: #### U R #### ML , Monocytes/100 WBC (Bld) 8 % Normal 4-12 [facility] Comment on above: Performed By: #### U R #### ML , Neutrophils (Bld) [#/Vol] 4.5 10*3/uL Normal 1.5-5.6 [facility] Comment on above: Performed By: #### U R #### ML , Neutrophils/100 WBC (Bld) 74 % High 41-72 [facility] Comment on above: Performed By: #### U R #### ML , Platelet mean volume (Bld) [Entitic vol] 9.7 fL Normal 7.6-10.6 [facility] Comment on above: Performed By: #### U R #### ML , Platelets (Bld) [#/Vol] 213 10*3/uL Normal 122-359 [facility] Comment on above: Performed By: #### U R #### ML , RBC (Bld) [#/Vol] 4.13 10*6/uL Normal 3.85-4.88 [facility] Comment on above: Performed By: #### U R #### ML , WBC (Bld) [#/Vol] 6.1 10*3/uL Normal 3.2-9.3 [facility] Comment on above: Performed By: #### U R #### ML , D Dimeron 01-17-2025 D Dimer 0.77 mg/L FEU High <0.50 [facility] Comment on above: Result Comment: Resu lts of the D-Dimer test should always be interpreted in conjunction with the patient's medical history, clinical presentation and other findings. Clinical diagnosis should not be based on the result of [employer] D-Dimer alone. Performed By: #### D DIMER ####Main Lab([id number] EDon 01-17-2025 ED [place] [id number] [place] [address] Emergency Department Note Signed Patient Name: Sherry Ash [facility] Rec ord #: [id number] Date of : 1945 Account #: [id number] Age/Sex: 79 / F Location: ED Attending physician: [facility] - General Adult General Date of Visit: 01/17/25 Chief complaint: Shortness of Breath/Dyspnea Time Seen by Provider: 01/17/25 09:17 ED Attending Physician: Hugh Julian MD ED Advanced Practice Provider: History of Present Illness HPI narrative: The patient is a 79 year old who presented to the Emergency Department with the complaint of shortness of breath. Patient tells me shortness of breath started this morning but her tells me that she has actually had symptoms over the past week. Symptoms over the past week with primarily fatigue. She works out 3 times a week with her and typically walks a mile 1 #3 on the treadmill and has not been able to do that. She does report some chills and subjective fever. She does report a cough which has been infrequent. She does complain of chronic rhinorrhea. No chest pain. No peripheral edema. No calf tenderness. No recent long car rides or plane trips anywhere. She reports she is acutely worse this morning and therefore presents here for evaluation. There is been no other contemporaneous evaluation or management. Mode of Arrival: Wheelchair Home Meds and Allergies Home Medications ???Medication ???Instructions ???Recorded ???Confirmed ???Type cholecalciferol (vitamin D3) 50 50 mcg PO DAILY 12/26/20 01/17/25 History mcg (2,000 unit) capsule loratadine 10 mg tablet 10 mg PO BEDTIME 08/24/22 01/17/25 History denosumab 60 mg/mL subcutaneous 60 mg subcut [id number] 08/26/23 History syringe (Prolia) Saccharomyces boulardii 1 cap PO DAILY 03/30/24 01/17/25 H istory venlafaxine 37.5 mg 37.5 mg PO DAILY 07/05/24 01/17/25 History capsule,extended release 24 hr rosuvastatin 40 mg tablet 40 mg PO DAILY 90 days #90 tabs 01/17/25 Rx alprazolam 0.25 mg tablet 0.25 mg PO BID PRN anxiety 30 days 11/09/24 01/17/25 Rx #60 tabs pantoprazole 40 mg tablet,delayed 40 mg PO DAILY 11/09/24 01/17/25 History release azithromycin 250 mg tablet See Rx Instructions PO .COMPLEX #6 01/17/25 Rx tabs fluticasone propionate 50 1 spray Nostril-both BEDTIME 01/1701/17/25 History mcg/actuation nasal spray,suspension multivitamin (Daily Multi-Vitamin 1 tab PO DAILY 01/17/25 01/17/25 History tablet) Allergies Allergy/AdvReac Type Severity Reaction Status Date / Time oxycodone Allergy Severe Headache Verified 01/17/25 09:28 Iodinated Contrast Media Allergy Mild headache, Verified 01/17/25 09:28 burning skin Penicillins Allergy Mild Rash Verified 01/17/25 09:28 Quinolones Allergy Mild Rash Verified 01/17/25 09:28 moxifloxacin Allergy Unknown Unknown Verified 01/17/25 09:28 doxycycline AdvReac Intermediate TEARS UP Verified 01/17/25 09:28 STOMACH- CAUSES ALOT OF PAIN hydrocodone AdvReac Intermediate vomiting, Verified 01/17/25 09:28 headache nitrofurantoin (From AdvReac Intermediate Vomiting Verified 01/17/25 09:28 Macrobid) albuterol AdvReac Mild HEADACHE,NA Verified 01/17/25 09:28 USEA bee venom protein (honey bee) AdvReac Mild swelling, Verified 01/17/25 09:28 vomiting calcium AdvReac Mild GI upset Verified 01/17/25 09:28 fluconazole AdvReac Mild Headache Verified 01/17/25 09:28 History PFSH Medical History Abdominal pain Nausea Acute UTI (urinary tract infection) Congenital ureteropelvic [...] History History Provided by: Patient Preferred Language: Kazakh Language Assistance Offered: Not Applicable Usual Edie (more content not included)... Normal [facility] Troponin Ion 01-17-2025 Troponin I < Normal 0.000-0.04 5 [facility] Comment on above: Performed By: #### U R #### Colin DAVIS 12-25-2024 PITA [place] [address] Office Visit Report Signed Patient Name: Sherry Ash [id number] Date of : 1945 Age/Sex: 79 / F Date of Service: Location: [facility] Primary Care [facility] Attending physician: Nicole Garcia DO Vital Signs 12/25/24 15:43 12/25/24 15:45 Height 5 ft 2 in Weight (kg) 156 lb BMI 28.5 BP 122/78 122/78 BP Location Right Brachial BP Position Sitting BP Cuff Size Adult BP Source Manual Cuff Respiration 18 Pulse 74 Pulse Source Monitor Temp 98.7 F Temp Source Temporal Artery Scan Pulse Oximetry (%) 98 Oxygen Delivery Method Room Air Intake Visit Reasons: poss kidney infection Allergies Allergy/AdvReac Type Severity Reaction Status Date / Time oxycodone Allergy Severe Headache Verified 12/25/24 15:38 Iodinated Contrast Media Allergy Mild headache, Verified 12/25/24 15:38 burning skin Penicillins Allergy Mild Rash Verified 12/25/24 15:38 Quinolones Allergy Mild Rash Verified 12/25/24 15:38 moxifloxacin Allergy Unknown Unknown Verified 12/25/24 15:38 doxycycline AdvReac Intermediate TEARS UP Verified 12/25/24 15:38 STOMACH- CAUSES ALOT OF PAIN hydrocodone AdvReac Intermediate vomiting, Verified 12/25/24 15:38 headache nitrofurantoin (From AdvReac Intermediate Vomiting Verified 12/25/24 15:38 Macrobid) albuterol AdvReac Mild HEADACHE,NA Verified 12/25/24 15:38 USEA bee venom protein (honey bee) AdvReac Mild swelling, Verified 12/25/24 15:38 vomiting calcium AdvReac Mild GI upset Verified 12/25/24 15:38 fluconazole AdvReac Mild Headache Verified 12/25/24 15:38 Current Medication List - Last Reconciled 12/25/24 by Alma Rodriguez alprazolam 0.25 mg tablet 0.25 mg PO BID PRN 30 days cholecalciferol (vitamin D3) 50 mcg (2,000 unit) capsule 50 mcg PO DAILY denosumab 60 mg/mL subcutaneous syringe (Prolia) 60 mg subcut [id number] fluticasone propionate 50 mcg/actuation nasal spray,suspension 1 spray Nostril-both DAILY loratadine 10 mg tablet 10 mg PO DAILY ondansetron 4 mg disintegrating tablet 4 mg PO Q8H PRN pantoprazole 40 mg tablet,delayed release 40 mg PO DAILY polyethylene glycol 3350 17 gram oral powder packet (Miralax) 17 grams PO DAILY rosuvastatin 40 mg tablet 40 mg PO DAILY 90 days Saccharomyces boulardii (Daily Probiotic (S. boulardii)) 1 cap PO DAILY venlafaxine 37.5 mg capsule,extended release 24 hr 37.5 mg PO DAILY Nurse's Note: Pt here with c/o pelvic area pain and lower back pain since 12/23/24. She is unsure is infection from beginning of November went away. [facility] Medical History Abdominal pain Nausea Acute UTI (urinary tract infection) Congenital ureteropelvic [...] abuse Mother Elevated cholesterol Alcohol abuse Social Determinants of Health Usual Living Arrangement: Alone Anyone at Home Need Help While Hospitalized: No Hx physical abuse: No Hx emotional abuse: No Hx sexual abuse: No Suspect/Identified Abuse: No Provider Notified of Abuse or Suspected Abuse: No Social History Social History History Provided by: [...] Ever Been Admitted to Treatment Facility for Alco (more content not included)... Normal [facility] Colin 12-02-2024 A.[place] [address] Office Visit Report Signed Patient Name: Sherry Ash [id number] Date of : 1945 Age/Sex: 78 / F Date of Service: Location: [facility] Urgent Care Attending physician: Mikal Wilcox PAC Intake Vital Signs 12/02/24 10:25 Height 5 ft 2 in Weight (kg) 150 lb BMI 27.4 BP 93/46 L Respiration 16 Pulse 77 Pulse Source NIBP Temp 97.9 F Pulse Oximetry (%) 98 Oxygen Delivery Method Room Air Intake Visit Reasons: Possible Kidney Infection Allergies Allergy/AdvReac Type Severity Reaction Status Date / Time oxycodone Allergy Severe Headache Verified 12/02/24 10:26 Iodinated Contrast Media Allergy Mild headache, Verified 12/02/24 10:26 burning skin Penicillins Allergy Mild Rash Verified 12/02/24 10:26 Quinolones Allergy Mild Rash Verified 12/02/24 10:26 moxifloxacin Allergy Unknown Unknown Verified 12/02/24 10:26 doxycycline AdvReac Intermediate TEARS UP Verified 12/02/24 10:26 STOMACH- CAUSES ALOT OF PAIN hydrocodone AdvReac Intermediate vomiting, Verified 12/02/24 10:26 headache nitrofurantoin (From AdvReac Intermediate Vomiting Verified 12/02/24 10:26 Macrobid) albuterol AdvReac Mild HEADACHE,NA Verified 12/02/24 10:26 USEA bee venom protein (honey bee) AdvReac Mild swelling, Verified 12/02/24 10:26 vomiting calcium AdvReac Mild GI upset Verified 12/02/24 10:26 fluconazole AdvReac Mild Headache Verified 12/02/24 10:26 Current Medication List - Last Reconciled 12/02/24 by Nina Mendoza alprazolam 0.25 mg tablet 0.25 mg PO BID PRN 30 days cholecalciferol (vitamin D3) 50 mcg (2,000 unit) capsule 50 mcg PO DAILY denosumab 60 mg/mL subcutaneous syringe (Prolia) 60 mg subcut [id number] fluticasone propionate 50 mcg/actuation nasal spray,suspension 1 spray Nostril-both DAILY loratadine 10 mg tablet 10 mg PO DAILY pantoprazole 40 mg tablet,delayed release 40 mg PO DAILY polyethylene glycol 3350 17 gram oral powder packet (Miralax) 17 grams PO DAILY rosuvastatin 40 mg tablet 40 mg PO DAILY 90 days Saccharomyces boulardii (Daily Probiotic (S. boulardii)) 1 cap PO DAILY venlafaxine 37.5 mg capsule,extended release 24 hr 37.5 mg PO DAILY Nurse's Note: started 3 days ago with back pain, PFSH PFSH Medical History Abdominal pain Nausea Acute UTI (urinary tract infection) Congenital ureteropelvic [...] Alcohol abuse Mother Elevated cholesterol Alcohol abuse Urgent Care Social History Social History History [...] HPI Comments History of Present Illness Details Sherry presents with a 3-day history of urinary symptoms and right-sided low back pain - Complains of dysuria, suprapubic pressure, and f requency - Denies fever, flank pain, and nausea/vomiting - Denies acute injury to the back - Has discomfort in the lumbar musculature near th e q (more content not included)... Normal [facility] Colin 11-09-2024 P[place] [address] Office Visit Report Signed Patient Name: Sherry Ash [id number] Date of : 1945 Age/Sex: 78 / F Date of Service: Location: [facility] Primary Care [place] Attending physician: Nicole Garcia DO Vital Signs 11/09/24 14:20 11/09/24 14:21 Height 5 ft 2 in Weight (kg) 153 lb 2 oz BMI 28.0 BP 112/72 112/72 BP Location Right Brachial BP Position Sitting BP Cuff Size Adult BP Source Manual Cuff Respiration 18 Pulse 62 Pulse Source Monitor Temp 98.3 F Temp Source Temporal Artery Scan Pulse Oximetry (%) 95 Oxygen Delivery Method Room Air Intake Visit Reasons: 3 mo f/u Allergies Allergy/AdvReac Type Severity Reaction Status Date / Time oxycodone Allergy Severe Headache Verified 11/09/24 14:15 Iodinated Contrast Media Allergy Mild headache, Verified 11/09/24 14:15 burning skin Penicillins Allergy Mild Rash Verified 11/09/24 14:15 Quinolones Allergy Mild Rash Verified 11/09/24 14:15 moxifloxacin Allergy Unknown Unknown Verified 11/09/24 14:15 doxycycline AdvReac Intermediate TEARS UP Verified 11/09/24 14:15 STOMACH- CAUSES ALOT OF PAIN hydrocodone AdvReac Intermediate vomiting, Verified 11/09/24 14:15 headache nitrofurantoin (From AdvReac Intermediate Vomiting Verified 11/09/24 14:15 Macrobid) albuterol AdvReac Mild HEADACHE,NA Verified 11/09/24 14:15 USEA bee venom protein (honey bee) AdvReac Mild swelling, Verified 11/09/24 14:15 vomiting calcium AdvReac Mild GI upset Verified 11/09/24 14:15 fluconazole AdvReac Mild Headache Verified 11/09/24 14:15 Current Medication List - Last Reconciled 11/09/24 by Nicole Garcia DO alprazolam 0.25 mg tablet 0.25 mg PO BID PRN 30 days cholecalciferol (vitamin D3) 50 mcg (2,000 unit) capsule 50 mcg PO DAILY denosumab 60 mg/mL subcutaneous syringe (Prolia) 60 mg subcut [id number] fluticasone propionate 50 mcg/actuation nasal spray,suspension 1 spray Nostril-both DAILY loratadine 10 mg tablet 10 mg PO DAILY pantoprazole 40 mg tablet,delayed release 40 mg PO DAILY polyethylene glycol 3350 17 gram oral powder packet (Miralax) 17 grams PO DAILY rosuvastatin 40 mg tablet 40 mg PO DAILY 90 days Saccharomyces boulardii (Daily Probiotic (S. boulardii)) 1 cap PO DAILY venlafaxine 37.5 mg capsule,extended release 24 hr 37.5 mg PO DAILY Nurse's Note: Pt here for 3 month f/u visit. She finished her Bactrim and Keflex, for UTI, on Wednesday. She is still having lower back pain. [facility] Medical History (Updated 11/09/24 @ 17:29 by Nicole Garcia DO) Abdominal pain Nausea Acute UTI (urinary tract infection) Congenital ureteropelvic [...] Abuse or Suspected Abuse: No HPI HPI 3 mo f/u: Details: here for 3 month f/u visit. Had recent urgent care visit for UTI as below. Last lab wo (more content not included)... Normal [facility] [place] [address] Office Visit Report Signed Patient Name: hSerry Ash [id number] Date of : 1945 Age/Sex: 78 / F Date of Service: Location: [facility] Urgent Care Attending physician: Mikal Wilcox PAC Intake Vital Signs 10/24/24 11:05 BP 110/61 Respiration 16 Pulse 69 Temp 97.8 F Pulse Oximetry (%) 99 Oxygen Delivery Method Room Air Intake Visit Reasons: Possible Kidney Infection Allergies Allergy/AdvReac Type Severity Reaction Status Date / Time oxycodone Allergy Severe Headache Verified 10/24/24 10:55 Iodinated Contrast Media Allergy Mild headache, Verified 10/24/24 10:55 burning skin Penicillins Allergy Mild Rash Verified 10/24/24 10:55 Quinolones Allergy Mild Rash Verified 10/24/24 10:55 moxifloxacin Allergy Unknown Unknown Verified 10/24/24 10:55 doxycycline AdvReac Intermediate TEARS UP Verified 10/24/24 10:55 STOMACH- CAUSES ALOT OF PAIN hydrocodone AdvReac Intermediate vomiting, Verified 10/24/24 10:55 headache nitrofurantoin (From AdvReac Intermediate Vomiting Verified 10/24/24 10:55 Macrobid) albuterol AdvReac Mild HEADACHE,NA Verified 10/24/24 10:55 USEA bee venom protein (honey bee) AdvReac Mild swelling, Verified 10/24/24 10:55 vomiting calcium AdvReac Mild GI upset Verified 10/24/24 10:55 fluconazole AdvReac Mild Headache Verified 10/24/24 10:55 Current Medication List - Last Reconciled 10/24/24 by Nina Mendoza alprazolam 0.25 mg tablet 0.25 mg PO BID PRN 30 days cholecalciferol (vitamin D3) 50 mcg (2,000 unit) capsule 50 mcg PO DAILY denosumab 60 mg/mL subcutaneous syringe (Prolia) 60 mg subcut [id number] fluconazole 150 mg tablet 150 mg PO Q3D 2 doses fluticasone propionate 50 mcg/actuation nasal spray,suspension 1 spray Nostril-both DAILY loratadine 10 mg tablet 10 mg PO DAILY pantoprazole 40 mg tablet,delayed release 40 mg PO BID polyethylene glycol 3350 17 gram oral powder packet (Miralax) 17 grams PO DAILY rosuvastatin 40 mg tablet 40 mg PO DAILY 90 days Saccharomyces boulardii (Daily Probiotic (S. boulardii)) 1 cap PO DAILY venlafaxine 37.5 mg capsule,extended release 24 hr 37.5 mg PO DAILY Nurse's Note: had burning when urinating then started itchiong did the 3 days yeast meds and cont to have itching PFSH PFSH Medical History Abdominal pain Nausea Acute UTI (urinary tract infection) Congenital ureteropelvic [...] Alcohol abuse Mother Elevated cholesterol Alcohol abuse Urgent Care Social History Social History History [...] HPI Comments History of Present Illness Details - Sherry presents with 3-day history of urinary s ymptoms, including dysuria, urgency, and frequency - She believes this was a yeast infection and took 3 days worth of Monistat. When this was not helpful, she sought further help - She denies feve (more content not included)... Normal [facility] Bacterial urine cultureOrder ed By: Mikal Wilcox on 10-24-2024 Bacteria identified Cx Nom (U) Escherichia coli Abnormal [facility] Bacteria identified Cx Nom (U) Strep agalactiae - (group b) Abnormal [facility] Laboratory - Chemistry and C hemistry - challengeOrdered By: Mikal Wilcox on 10-24-2024 Bilirubin Ql (U) Negative [facility] Glucose Ql (U) Negative [facility] Ketones Ql (U) Negative [facility] pH (U) 6.0 [pH] [facility] Specific gravity (U) [Rel density] 1.030 [facility] Urobilinogen (U) [Mass/Vol] 0.2 mg/dL [facility] Laboratory - Specimen inform ationOrdered By: Mikal Wilcox on 10-24-2024 Appearance (U) cloudy [facility] Color (U) Yellow [facility] Laboratory - UrinalysisOrder ed By: Mikal Wilocx on 10-24-2024 Leukocyte esterase Test strip Ql (U) Small [facility] Nitrite Ql (U) Positive [facility] Protein Ql (U) Negative [facility] No Panel InformationOrdered By: Mikal Wilcox on 10-24-2024 Urine Occult Blood Negative [facility] PITAon 08-31-2024 PITA [facility] [address] [place] [address] Office Visit Report Signed Patient Name: Sherry Ash [id number] Date of : 1945 Age/Sex: 78 / F Date of Service: Location: [facility] Orthopedics Attending physician: Joy DIOP HPI HPI Prolia and review CMP, D PTH: Details: Sherry Ash is a 78 year old HPI Comments Details: Patient is here today for repeat Prolia injection and to review labs. She has had no falls since her last visit here. She does not take calcium supplementation as it upsets her stomach. She is taking vitamin D. She has a history of 2 fragility fractures. Secondary causes of osteoporosis include premature menopause after hysterectomy with bilateral salpingo-oophorectomy. No family history of fracture. She works out at the gym regularly. No family history of fracture. Exam Ambulatory with no assistive device Assessment and plan 1. Osteoporosis with history of 2 fragility fractures Assessment: - Established diagnosis Plan: Postmenopausal osteoporosis Labs July 2024 GFR 58, calcium 9.9, alkaline phosphatase 59, vitamin D 70, PTH 24. a. Proceed with repeat Prolia injection today b. Schedule follow up in 6 months for bloodwork including vitamin D level, CMP, PTH General health and exercise Plan: - Encourage regular exercise and gym activities to maintain overall health and prevent falls, perform 3 hours weightbearing exercise per week. Encouraged her to get enough calcium through her diet and continue vitamin D supplementation. Assessment Plan Assessment Plan (1) Osteoporosis: Code(s): M81.0 - Age-related osteoporosis without current pathological fracture Category: Medical (2) Postmenopausal: Code(s): Z78.0 - Asymptomatic menopausal state Category: Medical Orders: Orders Prolia Injection Today M81.0 - Age-related osteoporosis without current pathological fracture Medications: New denosumab 60 mg subcut ONCE 1 mL 0RF M81.0 - Age-related osteoporosis without current pathological fracture Xray Readings Imaging Studies Recent Pertinent Imaging Studies: No Data to Display Vital Signs 08/31/24 13:44 08/31/24 14:18 Height 5 ft 2 in Weight (kg) 152 lb BMI 27.8 BP 112/74 112/74 BP Location Right Brachial BP Position Sitting BP Cuff Size Adult BP Source Automatic Cuff Pulse 68 Pulse Source NIBP Temp 98.4 F Temp Source Temporal Artery Scan Intake Visit Reasons: Prolia and review CMP, D PTH Allergies Allergy/AdvReac Type Severity Reaction Status Date / Time oxycodone Allergy Severe Headache Verified 08/31/24 14:15 Iodinated Contrast Media Allergy Mild headache, Verified 08/31/24 14:15 burning skin Penicillins Allergy Mild Rash Verified 08/31/24 14:15 Quinolones Allergy Mild Rash Verified 08/31/24 14:15 moxifloxacin Allergy Unknown Unknown Verified 08/31/24 14:15 doxycycline AdvReac Intermediate TEARS UP Verified 08/31/24 14:15 STOMACH- CAUSES ALOT OF PAIN hydrocodone AdvReac Intermediate vomiting, Verified 08/31/24 14:15 headache nitrofurantoin (From AdvReac Intermediate Vomiting Verified 08/31/24 14:15 Macrobid) albuterol AdvReac Mild HEADACHE,NA Verified 08/31/24 14:15 USEA bee venom protein (honey bee) AdvReac Mild swelling, Verified 08/31/24 14:15 vomiting calcium AdvReac Mild GI upset Verified 08/31/24 14:15 fluconazole AdvReac Mild Headache Verified 08/31/24 14:15 Current Medication List - Last Reconciled 08/31/24 by Denise Arita alprazolam 0.25 mg tablet 0.25 mg PO BID PRN 30 days cholecalciferol (vitamin D3) 50 mcg (2,000 unit) capsule 50 mcg PO DAILY denosumab 60 mg/mL subcutaneous syringe (Prolia) 60 mg subcut [id number] fluconazole 150 mg tablet 150 mg PO Q3D 2 doses fluticasone propionate 50 mcg/actuation nasal spray,suspension 1 spray Nostril-both DAILY loratadine 10 mg tablet 10 mg PO DAILY pantoprazole 40 mg tablet,delayed release 40 mg PO BID polyethylene glycol 3350 17 gram oral powder packet (Miralax) 17 grams PO DAILY rosuvastatin 40 mg tablet 40 mg PO DAILY 90 days Saccharomyces boulardii (Daily Probiotic (S. boulardii)) 1 cap PO DAILY venlafaxine 37.5 mg capsule,extended release 24 hr 37.5 mg PO DAILY Is patient having pain: No OARRS OARRS Reporting Not Reviewed [facility] Medical History Abdominal pain Nausea Acute UTI (urinary tract infection) Congenital ureteropelvic junction obstruction Granulomatous disease Hydronephrosis Chronic pain of left ankle Abnormal mammogram Breast cancer screening by mammogram HTN (hypertension), benign Dyslipidemia Mitral regurgitation Aortic heart murmur N (more content not included)... Normal [facility] 08-09-2024 A.DEBSOFIE [facility] [address] [place] [id number] Office Visit Report Signed Patient Name: Sherry Ash [id number] Date of : 1945 Age/Sex: 78 / F Date of Service: Location: [facility] Primary Care [place] Attending physician: Nicole Garcia DO Vital Signs 08/09/24 14:40 08/09/24 14:43 Height 5 ft 2 in Weight (kg) 152 lb 6 oz BMI 27.8 BP 112/72 112/72 BP Location Right Brachial BP Position Sitting BP Cuff Size Adult BP Source Manual Cuff Respiration 18 Pulse 82 Pulse Source Monitor Temp 98.7 F Temp Source Temporal Artery Scan Pulse Oximetry (%) 96 Oxygen Delivery Method Room Air Intake Visit Reasons: 3 month follow up Allergies Allergy/AdvReac Type Severity Reaction Status Date / Time oxycodone Allergy Severe Headache Verified 08/09/24 14:36 Iodinated Contrast Media Allergy Mild headache, Verified 08/09/24 14:36 burning skin Penicillins Allergy Mild Rash Verified 08/09/24 14:36 Quinolones Allergy Mild Rash Verified 08/09/24 14:36 moxifloxacin Allergy Unknown Unknown Verified 08/09/24 14:36 doxycycline AdvReac Intermediate TEARS UP Verified 08/09/24 14:36 STOMACH- CAUSES ALOT OF PAIN hydrocodone AdvReac Intermediate vomiting, Verified 08/09/24 14:36 headache nitrofurantoin (From AdvReac Intermediate Vomiting Verified 08/09/24 14:36 Macrobid) albuterol AdvReac Mild HEADACHE,NA Verified 08/09/24 14:36 USEA bee venom protein (honey bee) AdvReac Mild swelling, Verified 08/09/24 14:36 vomiting calcium AdvReac Mild GI upset Verified 08/09/24 14:36 fluconazole AdvReac Mild Headache Verified 08/09/24 14:36 Current Medication List - Last Reconciled 08/09/24 by Alma Rodriguez alprazolam 0.25 mg tablet 0.25 mg PO BID PRN 30 days cholecalciferol (vitamin D3) 50 mcg (2,000 unit) capsule 50 mcg PO DAILY denosumab 60 mg/mL subcutaneous syringe (Prolia) 60 mg subcut [id number] fluticasone propionate 50 mcg/actuation nasal spray,suspension 1 spray Nostril-both DAILY loratadine 10 mg tablet 10 mg PO DAILY pantoprazole 40 mg tablet,delayed release 40 mg PO DAILY polyethylene glycol 3350 17 gram oral powder packet (Miralax) 17 grams PO DAILY rosuvastatin 40 mg tablet 40 mg PO DAILY 90 days Saccharomyces boulardii (Daily Probiotic (S. boulardii)) 1 cap PO DAILY venlafaxine 37.5 mg capsule,extended release 24 hr 37.5 mg PO DAILY Nurse's Note: Pt here for 3 month f/u visit. She c/o right side groin pain, 5/10. Painful with walking. She states she discussed this at last appointment. She c/o burning with urination that started yesterday. [facility] Medical History Abdominal pain Nausea Acute UTI (urinary tract infection) Congenital ureteropelvic [...] Abuse or Suspected Abuse: No HPI HPI 3 month follow up: Details: here for 3 month f/u visit. (more content not included)... Normal [facility] Laboratory - Chemistry and C hemistry - challengeOrdered By: Nicole Garcia on 08-09-2024 Bilirubin Ql (U) Negative [facility] Glucose Ql (U) Negative [facility] Ketones Ql (U) Negative [facility] pH (U) 5.5 [pH] [facility] Specific gravity (U) [Rel density] 1.010 [facility] Urobilinogen (U) [Mass/Vol] 0.2 mg/dL [facility] Laboratory - Specimen inform ationOrdered By: Nicole Garcia on 08-09-2024 Appearance (U) clear [facility] Color (U) Yellow [facility] Laboratory - UrinalysisOrder ed By: Nicole Garcia on 08-09-2024 Leukocyte esterase Test strip Ql (U) Negative [facility] Nitrite Ql (U) Negative [facility] Protein Ql (U) + [facility] No Panel InformationOrdered By: Nicole Garcia on 08-09-2024 Urine Occult Blood Negative [facility] Mammography, screeningOrdere d By: Mihir Myers on 08-02-2024 MG Breast Screening [address] [address] Mammography Report Signed Patient: Sherry Ash MR#: [id number] : 1945 Acct:[id number] Age/Sex: 78 / F ADM Date: 5 Loc: MAMMO Attending Dr: Nicole Garcia DO Ordering Physician: Nicole Garcia DO Date of Service: 08/02/24 Procedure(s): MM 3D screening BI Accession Number(s): [id number] MM 3D screening BI Computer assisted diagnostics (CAD) was applied to all images using the R2 pattern checker. STUDY DESCRIPTION, DATE AND TIME: MM 3D SCREENING BI 08/02/2024 14:28 CLINICAL INFORMATION: annual screening due TECHNIQUE: Standard 3D technique with tomosynthesis performed. Computer assisted diagnostics (CAD) was applied to all images using the R2 pattern checker. FINDINGS: No comparison studies are available for comparison. A small amount of fibroglandular tissue is present. Scattered benign calcifications are present. No dominant mass or suspicious calcifications. Breast Composition Category A- The breasts are almost entirely fatty. IMPRESSION: No evidence of malignancy. Category 2. Benign findings. BIRADS 2 benign findings. Annual mammographic screening is advised. The patient was entered into the mammography reminder system. Mihir Myers , 08/02/2024 14:38 Dictated By: Mihir Myers MD Signed By: 08/02/248 DD/ 37 TD/TT: 08/02/241437 [employer] Engineer: NATALIE Exam/Order Verified? Y Exam Explained to Patient/Family? Y Was Patient Shielded?N Is Patient ? Consent Form Completed? Hx Last Menstrual Period: Does Patient have a Diabetic Device? Diabetic Device Type: Was the Diabetic Device Removed? If NO: was Removal Consent form completed? Verified by Technologist:[id number] Comment: [id number] cc: Nicole Garcia DO [facility] Work Phone: A.Bernice 07-31-2024 A.OFFSOFIE [facility] [place] [address] Office Visit Report Signed Patient Name: Sherry Ash [id number] Date of : 1945 Age/Sex: 78 / F Date of Service: Location: [facility] Urology Attending physician: Lion Hurtado MD Vital Signs 07/31/24 11:56 07/31/24 12:02 Height 5 ft 10 in Weight (kg) 68.606 kg BMI 21.7 BP 182/72 H 182/72 H BP Location Right Brachial BP Position Sitting BP Cuff Size Adult BP Source Automatic Cuff Pulse 77 Intake Visit Reasons: Cysto, bladder irrigation f/u Allergies Allergy/AdvReac Type Severity Reaction Status Date / Time oxycodone Allergy Severe Headache Verified 07/31/24 11:56 Iodinated Contrast Media Allergy Mild headache, Verified 07/31/24 11:56 burning skin Penicillins Allergy Mild Rash Verified 07/31/24 11:56 Quinolones Allergy Mild Rash Verified 07/31/24 11:56 moxifloxacin Allergy Unknown Unknown Verified 07/31/24 11:56 doxycycline AdvReac Intermediate TEARS UP Verified 07/31/24 11:56 STOMACH- CAUSES ALOT OF PAIN hydrocodone AdvReac Intermediate vomiting, Verified 07/31/24 11:56 headache nitrofurantoin (From AdvReac Intermediate Vomiting Verified 07/31/24 11:56 Macrobid) albuterol AdvReac Mild HEADACHE,NA Verified 07/31/24 11:56 USEA bee venom protein (honey bee) AdvReac Mild swelling, Verified 07/31/24 11:56 vomiting calcium AdvReac Mild GI upset Verified 07/31/24 11:56 fluconazole AdvReac Mild Headache Verified 07/31/24 11:56 Current Medication List - Last Reconciled 07/31/24 by Catrachita Latham alprazolam 0.25 mg tablet 0.25 mg PO BID PRN 30 days cholecalciferol (vitamin D3) 50 mcg (2,000 unit) capsule 50 mcg PO DAILY denosumab 60 mg/mL subcutaneous syringe (Prolia) 60 mg subcut [id number] fluconazole 150 mg tablet 150 mg PO ONCE fluticasone propionate 50 mcg/actuation nasal spray,suspension 1 spray Nostril-both DAILY loratadine 10 mg tablet 10 mg PO DAILY multivitamin 1 tab PO DAILY pantoprazole 40 mg tablet,delayed release 40 mg PO DAILY polyethylene glycol 3350 17 gram oral powder packet (Miralax) 17 grams PO DAILY rosuvastatin 40 mg tablet 40 mg PO DAILY 90 days Saccharomyces boulardii (Daily Probiotic (S. boulardii)) 1 cap PO DAILY sulfamethoxazole 800 mg-trimethoprim 160 mg tablet (Bactrim DS) 1 tab PO BID venlafaxine 37.5 mg capsule,extended release 24 hr 37.5 mg PO DAILY Nurse's Note: f/u cysto bladder irrigation PFSH Medical History Abdominal pain Nausea Acute UTI (urinary tract infection) Congenital ureteropelvic [...] Abuse or Suspected Abuse: No HPI HPI Cysto, bladder irrigation f/u: Details: The patient, a 78-year-old woman with a history of recurrent urinary tract infections, presents for follow-up after a recent cystoscopy with bladder irrigation performed on (more content not included)... Normal [facility] 83-CK-Mzdrbvl DOrdered By: Cody Wan on 07-25-2024 Vitamin D 25-Hydroxy 70.1 ng/mL 30.0-100.0 [facility] Alanine aminotransferase (AL T) measurementOrdered By: Joy Wan on 07-25-2024 ALT [Catalytic activity/Vol] 19 U/L 0-55 [facility] AST [Catalytic activity/Vol] 23 U/L 5-34 [facility] Alkaline phosphataseOrdered By: oJy Wan on 07-25-2024 ALP [Catalytic activity/Vol] 59 U/L 40-150 [facility] Anion gap (Bld) [Moles/Vol]O rdered By: Joy Wan on 07-25-2024 Anion gap [Moles/Vol] 9 mmol/L 5-13 [facility] BUN venousOrdered By: Mary Wan on 07-25-2024 Urea nitrogen (BldV) [Mass/Vol] 15 mg/dL 7-18 [facility] Blood anion gapOrdered By: Cody Wan on 07-25-2024 Anion gap (Bld) [Moles/Vol] 9 mmol/L 5-13 [facility] Calcium (Unsp spec) [Mass/Vo l]Ordered By: Joy Wan on 07-25-2024 Calcium [Mass/Vol] 9.9 mg/dL 8.4-10.2 [facility] Calcium measurement (mass/vo lume)Ordered By: Joy Wan on 07-25-2024 Calcium (Unsp spec) [Mass/Vol] 9.9 mg/dL 8.4-10.2 [facility] Creatinine (Bld) [Mass/Vol]O rdered By: Joy Wan on 07-25-2024 Creatinine [Mass/Vol] 0.99 mg/dL 0.57-1.11 [facility] Epithelial cells.squamous LM Ql (Urine sed)Ordered By: Lion Hurtado on 07-25-2024 Urine Squamous Epithelial Cells 21-50 0 [facility] Estimated glomerular filtrat ion rate (GFR) determinationOrdered By: Joy Wan on 07-25-2024 GFR/1.73 sq M.predicted among non-blacks MDRD (S/P/Bld) [Vol rate/Area] 58 mL/min/{1.73_m2} Low mL/min/1.7 3m2 [facility] Glucose Auto test strip Ql ( U)Ordered By: Lion Hurtado on 07-25-2024 Glucose (U) [Mass/Vol] Negative Negative [facility] Hemoglobin Ql (U)Ordered By: Lion Hurtado on 07-25-2024 Urine Occult Blood Negative Negative [facility] Intact PTH plasmaOrdered By: Joy Wan on 07-25-2024 Parathyroid Hormone (Intact) 24 pg/mL 14-64 [facility] Comment on above: Interpretive Guide I ntact PTH CalciumNormal Parathyroid Normal NormalHypoparathyroidism Low or Low Normal LowHyperparathyroidism Primary Normal or High High Secondary High Normal or Low Tertiary High HighNon-Parathyroid Hypercalcemia Low or Low Normal HighFor additional information, please refer tohttp://education.[employer]/faq/KSG209(This link is being provided for informational/educational purposes only.)Test Performed by [facility],[employer] [facility],[address] [place] [id number] Fuller M.D., Ph.D., Director of [phone], [place] [id number] Laboratory - Chemistry and C hemistry - challengeOrdered By: Joy Wan on 07-25-2024 Albumin [Mass/Vol] 4.4 g/dL 3.2-4.6 [facility] Laboratory - UrinalysisOrder ed By: Lion Hurtado on 07-25-2024 Bacteria LM.HPF (Urine sed) [#/Area] 1 /[HPF] 0 [facility] Nitrite Auto test strip Ql ( U)Ordered By: Lion Hurtado on 07-25-2024 Nitrite Ql (U) Negative NEGATIVE [facility] Occult blood ur QLOrdered By : Lion Hurtado on 07-25-2024 Hemoglobin Ql (U) Negative Negative [facility] PTH, INTACTon 07-25-2024 PTH, INTACT 24 pg/mL Normal 14-64 [facility] Comment on above: Result Comment: Inte rpretive Guide Intact PTH Calcium Normal Parathyroid Normal Normal Hypoparathyroidism Low or Low Normal Low Hyperparathyroidism Primary Normal or High High Secondary High Normal or Low Tertiary High High Non-Parathyroid Hypercalcemia Low or Low Normal High For additional information, please refer to http://education.[employer]/faq/LKT411 (This link is being provided for informational/ educational purposes only.) Test Performed by [employer] [facility], [employer] [facility], [address] [place] [address] Srikanth Fuller M.D., Ph.D., Director of Laboratories , CLIA [id number] Performed By: #### P THINT [id number] ####[facility] Laboratory, Protein SSA method Ql (U)Ord ered By: Lion Hurtado on 07-25-2024 Urine Prot Sulfosalicylic Acid 1+ Abnormal Negative [facility] RBC LM.HPF (Urine sed) [#/Ar ea]Ordered By: Lion Hurtado on 07-25-2024 Urine RBC 0-2 /hpf 0-2 [facility] Serum or plasma bilirubin me asurement (mass/volume)Ordered By: Joy Wan on 07-25-2024 Bilirubin [Mass/Vol] 0.7 mg/dL 0.0-1.0 [facility] Serum or plasma carbon dioxi de measurement (moles/volume)Ordered By: Joy Wan on 07-25-2024 CO2 [Moles/Vol] 23 mmol/L 23-31 [facility] Serum or plasma chloride thom surement (moles/volume)Ordered By: Joy Wan on 07-25-2024 Chloride [Moles/Vol] 105 mmol/L 98-107 [facility] Serum or plasma glucose eileen urement (mass/volume)Ordered By: Joy Wan on 07-25-2024 Glucose [Mass/Vol] 115 mg/dL High 70-100 [facility] Serum or plasma potassium me asurement (moles/volume)Ordered By: Joy Wan on 07-25-2024 Potassium [Moles/Vol] 4.0 mmol/L 3.5-5.1 [facility] Sodium (BldV) [Moles/Vol]Ord ered By: Joy Wan on 07-25-2024 Sodium [Moles/Vol] 137 mmol/L 136-145 [facility] Specific gravity Test strip (U) [Rel density]Ordered By: Lion Hurtado on 07-25-2024 Specific gravity (U) [Rel density] 1.025 1.005-1.03 0 [facility] Squamous epithelial cells de tection in urine sediment by light microscopyOrdered By: Lion Hurtado on 07-25-2024 Epithelial cells.squamous LM Ql (Urine sed) 21-50 0 [facility] Total protein bloodOrdered B y: Joy Wan on 07-25-2024 Protein [Mass/Vol] 6.6 g/dL 6.4-8.2 [facility] UA with Reflex Cultureon Bacteria Urine 1+ Normal 0 [facility] Comment on above: Performed By: #### U AREFLEX ####Main Lab([id number])[address] [place] [address] [place] Bilirubin Urine Negative Normal Negative [facility] Comment on above: Performed By: #### U AREFLEX ####Main [facility]([id number])[address] [place] [address] [place] Glucose Urine UA Negative Normal Negative [facility] Comment on above: Performed By: #### U AREFLEX ####Main Lab([id number])[address] [place] [address] [place] Nitrite Urine Negative Normal NEGATIVE [facility] Comment on above: Performed By: #### U AREFLEX ####Main Lab([id number])[address] [place] [address] [place] Occult Blood Urine Negative Normal Negative [facility] Comment on above: Performed By: #### U AREFLEX ####Main Lab([id number])[address] [place] [address] [place] Protein Urine (Multistix) 30 (1+) Abnormal Negative [facility] Comment on above: Performed By: #### U AREFLEX ####Main Lab([id number])[address] RBC Urine Normal 0-2 [facility] Comment on above: Performed By: #### U AREFLEX ####Main Lab([id number])[address] Urine 1.025 Normal 1.005 -1.03 0 [facility] Comment on above: Performed By: #### U AREFLEX ####Main Lab([id number])[address] Squamous Epithelial Cell Urine Normal 0 [facility] Comment on above: Performed By: #### U AREFLEX ####Main Lab([id number])[address] Sulfosalicylic Acid Urine 1+ Abnormal Negative [facility] Comment on above: Performed By: #### U AREFLEX ####Main Lab([id number])[address] Urobilinogen Urine 0.2 EU/dL Normal 0.2-1.0 [facility] Comment on above: Performed By: #### U AREFLEX ####Main Lab([id number])[address] WBC Urine Normal 0 [facility] Comment on above: Performed By: #### U AREFLEX ####Main Lab([id number])[address] UA with Reflex CultureOrdere d By: Lion Hurtado on 07-25-2024 Leukocyte esterase Test strip Ql (U) Trace Normal Negative [facility] Comment on above: Performed By: #### U AREFLEX ####Main Lab([id number])[address] Urea nitrogen (BldV) [Mass/V ol]Ordered By: Joy Wan on 07-25-2024 Urea nitrogen [Mass/Vol] 15 mg/dL 7-18 [facility] Urine appearance determinati onOrdered By: Lion Hurtado on 07-25-2024 Appearance (U) Cloudy Normal CLEAR [facility] Comment on above: Performed By: #### U AREFLEX ####Main Lab([id number])[address] Urine bilirubin measurementO rdered By: Lion Hurtado on 07-25-2024 Bilirubin Ql (U) Negative Negative [facility] Urine color determinationOrd ered By: Lion Hurtado on 07-25-2024 Color (U) Yellow Normal YELLOW [facility] Comment on above: Performed By: #### U AREFLEX ####Main Lab([id number])[address] Urine glucose detection by a utomated test stripOrdered By: Lion Hurtado on 07-25-2024 Glucose Auto test strip Ql (U) Negative Negative [facility] Urine ketones measurementOrd ered By: Lion Hurtado on 07-25-2024 Ketones Ql (U) Negative Normal Negative [facility] Comment on above: Performed By: #### U AREFLEX ####Main Lab([id number])[address] Urine microscopic examinatio n for leukocytesOrdered By: Lion Hurtado on 07-25-2024 Urine Microscopic WBC 0-2 /hpf 0 [facility] Urine nitrite detection by a utomated test stripOrdered By: Lion Hurtado on 07-25-2024 Nitrite Auto test strip Ql (U) Negative NEGATIVE [facility] Urine pH measurementOrdered By: Lion Hurtado on 07-25-2024 pH (U) 6.0 [pH] Normal 5.5-8.0 [facility] Comment on above: Performed By: #### U AREFLEX ####Main Lab([id number])[facility] [place] [address] [facility] Urine protein detection by s ulfosalicylic acid methodOrdered By: Lion Hurtado on 07-25-2024 Protein SSA method Ql (U) 1+ Abnormal Negative [facility] Urine protein measurementOrd ered By: Lion Hurtado on 07-25-2024 Protein Ql (U) 30 (1+) mg/dL Abnormal Negative [facility] Urine sediment erythrocyte c ount by microscopy (number/high power field)Ordered By: Lion Hurtado on 07-25-2024 RBC LM.HPF (Urine sed) [#/Area] 0-2 /hpf 0-2 [facility] Urine urobilinogen measureme ntOrdered By: Lion Hurtado on 07-25-2024 Urobilinogen Ql (U) 0.2 EU/dL 0.2-1.0 [facility] Urobilinogen Ql (U)Ordered B y: Lion Hurtado on 07-25-2024 Urobilinogen Qn (U) 0.2 {Gloria'U}/dL 0.2-1.0 [facility] Venous blood sodium measurem entOrdered By: Joy Wan on 07-25-2024 Sodium (BldV) [Moles/Vol] 137 mmol/L 136-145 [facility] Vitamin D 25-OHon 07-25-2024 Vitamin D 25-OH 70.1 ng/mL Normal 30.0-100.0 [facility] Comment on above: Performed By: #### V ITD ####Main Lab([id number])[facility] [address], [place] [address] P.HP.ATTon 07-12-2024 P.HP.ATT [facility] [address] [place] [address] H P Attestation Signed Patient Name: Sherry Ash [id number] Date of : 1945 Age/Sex: 78 / F Location: Surgery Outpatient Attending physician: Lion Hurtado MD H P Attestation H P Review H P reviewed and Exam performed by physician: Yes Changes to H P: No Dictated By: Lion Hurtado MD 07/12/241313 Signed By: 07/12/241313 Cosigned By (if applicable): [id number] cc: Lion Hurtado MD [facility] P.OPon 07-12-2024 P.OP [facility] [address] [place] [address] Operative Note Signed Patient Name: Sherry Ash [id number] Date of : 1945 Age/Sex: 78 / F Location: Surgery Outpatient Attending physician: Lion Hurtado MD Report of Operation Date of procedure: 07/12/24 Indication: This patient is a 78-year-old woman who presented with recurrence of urinary tract infections. We discussed option for treatment and we opted to proceed with a cystoscopic evaluation at this time. The risks and indication were discussed prior to signing consent Name of Procedure(s): Operation Date: 07/12/24 14:30 Actual Procedures p Cystoscopy with Bladder Washing(Not Applicable) - Lion Hurtado MD Pre-Op Diagnosis: recurrent UTI Post-Op Diagnosis: recurrent UTI Case Staff: Operation Date: 07/12/24 14:30 Case Staff Cartoon Animator Melissa Henderson Anesthesia Type: Operation Date: 07/12/24 14:30 Anesthesia Type Comment Local Estimated Blood Loss: Minimal (less than 10ml) Surgical Implants/Explants: Operation Date: 07/12/24 14:30 Findings: Adherent filmy debris along the cobb of the bladder Specimen: none sent Details of Procedure: The patient was taken to the cystoscopy suite and placed in dorsolithotomy position on the cystoscopy table. The perineum was prepped and draped in the usual sterile fashion and we used the 22 Turkmen cystoscope sheath with the 30 degree lens to perform cystourethroscopy. The urethra appeared completely normal. As we passed into the bladder we noted filmy debris along the more dependent portions of the bladder. We were able to copiously irrigate this debris with sterile saline to remove it from the bladder cobb. We then noted a very normal anatomic appearance of the bladder. There was no evidence of cystocele formation. The ureteral orifices were in their proper position on the trigone and there was clear efflux of urine from both sides. There were no tumors noted within the bladder. After our bladder irrigation we emptied the bladder and removed the cystoscope. The patient was then taken back to the same-day surgery area in stable condition. Primary Disposition: SDC Secondary Disposition: Home Condition: Stable Discharge Plan Discharge (Provider) Patient Disposition: Home, Self-Care Discharge Orders: Discharge/Release Order (Routine); Ordered 07/12/24 Ordered By: Lion Hurtado Condition: Stable Discharge Medications: New sulfamethoxazole-trimetho prim [Bactrim DS] 800-160 mg tablet 1 tab PO BID Qty: 6 0RF Continued fluticasone propionate 50 mcg/actuation spray,suspension 1 spray Nostril-both DAILY Qty: 32 3RF polyethylene glycol 3350 [Miralax] 17 gram powder in packet 17 gm PO DAILY alprazolam 0.25 mg tablet 0.25 mg PO BID PRN (Reason: anxiety) 30 Days Qty: 60 2RF Saccharomyces boulardii [Daily Probiotic (S. boulardii)] 1 cap PO DAILY cholecalciferol (vitamin D3) 50 mcg (2,000 unit) capsule 50 mcg PO DAILY Prolia 60 mg/mL syringe 60 mg subcut [id number] multivitamin Tablet 1 tab PO DAILY rosuvastatin 40 mg tablet 40 mg PO DAILY 90 Days Qty: 90 3RF loratadine 10 mg Tablet 10 mg PO DAILY venlafaxine 37.5 mg capsule,extended release 24hr 37.5 mg PO DAILY pantoprazole 40 mg tablet,delayed release (DR/EC) 40 mg PO DAILY Activity: may resume usual activity Diet: regular diet Follow-Up Orders Follow-Up Appointments: Lion Hurtado MD [Physician] - 07/31/24 11:30 am Dictated By: Lion Hurtado MD 07/12/24 1557 Signed By: 07/12/24 1551 Cosigned By (if applicable): [id number] cc: MD Nicole Diaz DO Normal [facility] Colin 07-03-2024 [facility] [address] [place] [address] [place] [address] Office Visit Report Signed Patient Name: Sherry Ash [id number] Date of : 1945 Age/Sex: 78 / F Date of Service: Location: [facility] Urology Attending physician: Lion Hurtado MD Vital Signs 07/03/24 10:39 Height 5 ft 2 in Weight (kg) 68.946 kg BMI 27.8 BP 92/62 L BP Location Right Brachial BP Position Sitting BP Cuff Size Adult BP Source Manual Cuff Pulse 78 Pulse Oximetry (%) 97 Oxygen Delivery Method Room Air Intake Visit Reasons: frequent UTIs, pw sent Accompanied by: Self / Same As Patient Allergies Allergy/AdvReac Type Severity Reaction Status Date / Time oxycodone Allergy Severe Headache Verified 07/03/24 10:37 Iodinated Contrast Media Allergy Mild headache, Verified 07/03/24 10:37 burning skin Penicillins Allergy Mild Rash Verified 07/03/24 10:37 Quinolones Allergy Mild Rash Verified 07/03/24 10:37 moxifloxacin Allergy Unknown Unknown Verified 07/03/24 10:37 cephalexin AdvReac Intermediate Vomiting Verified 07/03/24 10:37 doxycycline AdvReac Intermediate TEARS UP Verified 07/03/24 10:37 STOMACH- CAUSES ALOT OF PAIN hydrocodone AdvReac Intermediate vomiting, Verified 07/03/24 10:37 headache nitrofurantoin (From AdvReac Intermediate Vomiting Verified 07/03/24 10:37 Macrobid) albuterol AdvReac Mild HEADACHE,NA Verified 07/03/24 10:37 USEA bee venom protein (honey bee) AdvReac Mild swelling, Verified 07/03/24 10:37 vomiting calcium AdvReac Mild GI upset Verified 07/03/24 10:37 fluconazole AdvReac Mild Headache Verified 07/03/24 10:37 Current Medication List - Last Reconciled 07/03/24 by Tisha Valencia alprazolam 0.25 mg tablet 0.25 mg PO BID PRN 30 days cholecalciferol (vitamin D3) 50 mcg (2,000 unit) capsule 50 mcg PO DAILY denosumab 60 mg/mL subcutaneous syringe (Prolia) 60 mg subcut [id number] fluticasone propionate 50 mcg/actuation nasal spray,suspension 1 spray Nostril-both DAILY loratadine 10 mg tablet 10 mg PO DAILY methenamine hippurate 1 gram tablet 1 GM PO BID 30 days multivitamin 1 tab PO Q OTHER DAY nystatin 100,000 unit/gram topical powder (Nystop) 1 applic topical BID PRN pantoprazole 40 mg tablet,delayed release 40 mg PO BID 90 days polyethylene glycol 3350 17 gram oral powder packet (Miralax) 17 grams PO DAILY PRN rosuvastatin 40 mg tablet 40 mg PO DAILY 90 days Saccharomyces boulardii (Daily Probiotic (S. 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 Normal [facility] Colin 06-12-2024 [facility] [address] [place] [address] Office Visit Report Signed Patient Name: Sherry Ash [id number] Date of : 1945 Age/Sex: 78 / F Date of Service: Location: [facility] Attending physician: Nicole Garcia DO Vital Signs 06/12/24 10:19 06/12/24 10:22 Height 5 ft 2 in Weight (kg) 154 lb 2 oz BMI 28.1 BP 90/66 L 90/66 L BP Location Right Brachial BP Position Sitting BP Cuff Size Adult BP Source Manual Cuff Respiration 20 Pulse 74 Pulse Source Monitor Temp 98.6 F Temp Source Temporal Artery Scan Pulse Oximetry (%) 97 Oxygen Delivery Method Room Air Intake Visit Reasons: Urinary tract infection URI Allergies Allergy/AdvReac Type Severity Reaction Status Date / Time oxycodone Allergy Severe Headache Verified 06/12/24 10:12 Iodinated Contrast Media Allergy Mild headache, Verified 06/12/24 10:12 burning skin Penicillins Allergy Mild Rash Verified 06/12/24 10:12 Quinolones Allergy Mild Rash Verified 06/12/24 10:12 moxifloxacin Allergy Unknown Unknown Verified 06/12/24 10:12 cephalexin AdvReac Intermediate Vomiting Verified 06/12/24 10:12 doxycycline AdvReac Intermediate TEARS UP Verified 06/12/24 10:12 STOMACH- CAUSES ALOT OF PAIN hydrocodone AdvReac Intermediate vomiting, Verified 06/12/24 10:12 headache nitrofurantoin (From AdvReac Intermediate Vomiting Verified 06/12/24 10:12 Macrobid) albuterol AdvReac Mild HEADACHE,NA Verified 06/12/24 10:12 USEA bee venom protein (honey bee) AdvReac Mild swelling, Verified 06/12/24 10:12 vomiting calcium AdvReac Mild GI upset Verified 06/12/24 10:12 fluconazole AdvReac Mild Headache Verified 06/12/24 10:12 Current Medication List - Last Reconciled 06/12/24 by Alma Rodriguez alprazolam 0.25 mg tablet 0.25 mg PO BID PRN 30 days cholecalciferol (vitamin D3) 50 mcg (2,000 unit) capsule 50 mcg PO DAILY denosumab 60 mg/mL subcutaneous syringe (Prolia) 60 mg subcut [id number] fluticasone propionate 50 mcg/actuation nasal spray,suspension 1 spray Nostril-both DAILY loratadine 10 mg tablet 10 mg PO DAILY methenamine hippurate 1 gram tablet 1 GM PO BID 30 days miconazole nitrate 2 % topical cream 1 applic topical BEDTIME 7 days multivitamin 1 tab PO Q OTHER DAY nystatin 100,000 unit/gram topical powder (Nystop) 1 applic topical BID PRN pantoprazole 40 mg tablet,delayed release 40 [...] release 24 hr 37.5 mg PO DAILY Nurse's Note: Pt here with c/o burning with urination, bilateral lower back pain, and cough that started 06/10/24. Pt also c/o right groin pain that started last week. [facility] Medical History Acute UTI (urinary tract infection) Congenital ureteropelvic [...] Caffeine Use: Yes Non-Prescribed Substance Use: Denies (more content not included)... Normal [facility] Bacterial urine cultureOrder ed By: Nicole Garcia on 06-12-2024 Bacteria identified Cx Nom (U) Escherichia coli Abnormal [facility] Bacteria identified Cx Nom (U) Strep agalactiae - (group b) Abnormal [facility] Bacteria identified Cx Nom (U) Escherichia coli Abnormal [facility] Bacteria identified Cx Nom (U) Strep agalactiae - (group b) Abnormal [facility] Laboratory - Chemistry and C hemistry - challengeon 06-12-2024 Bilirubin Ql (U) Negative [facility] Glucose Ql (U) Negative [facility] Ketones Ql (U) Negative [facility] pH (U) 6.5 [pH] [facility] Specific gravity (U) [Rel density] 1.015 [facility] Urobilinogen (U) [Mass/Vol] 0.2 mg/dL [facility] Laboratory - Microbiology an d Antimicrobial susceptibilityOrdered By: Nicole Garcia on 06-12-2024 SARS-CoV-2 (COVID-19) RNA MAICO+probe Ql (Unsp spec) [facility] SARS-CoV-2 (COVID-19) RNA MAICO+probe Ql (Unsp spec) [facility] Laboratory - Specimen inform ationon 06-12-2024 Appearance (U) clear [facility] Color (U) Dark Yellow [facility] Laboratory - Urinalysison Leukocyte esterase Test strip Ql (U) Trace [facility] Nitrite Ql (U) Negative [facility] Protein Ql (U) Negative [facility] No Panel Informationon 06-12 Urine Occult Blood Negative [facility] A.OFFVISon 05-18-2024 PITA [facility] [address] [place] [address] Office Visit Report Signed Patient Name: Sherry Ash [id number] Date of : 1945 Age/Sex: 78 / F Date of Service: Location: [facility] Primary Care [place] Attending physician: Nicole Garcia DO Vital Signs 05/18/24 10:49 05/18/24 10:54 Height 5 ft 2 in Weight (kg) 149 lb 2 oz BMI 27.2 BP 108/72 108/72 BP Location Right Brachial BP Position Sitting BP Cuff Size Adult BP Source Manual Cuff Respiration 18 Pulse 83 Pulse Source Monitor Temp 98.7 F Temp Source Temporal Artery Scan Pulse Oximetry (%) 96 Oxygen Delivery Method Room Air Intake Visit Reasons: 6 mo f/u Allergies Allergy/AdvReac Type Severity Reaction Status Date / Time oxycodone Allergy Severe Headache Verified 05/18/24 10:43 Iodinated Contrast Media Allergy Mild headache, Verified 05/18/24 10:43 burning skin Penicillins Allergy Mild Rash Verified 05/18/24 10:43 Quinolones Allergy Mild Rash Verified 05/18/24 10:43 moxifloxacin Allergy Unknown Unknown Verified 05/18/24 10:43 cephalexin AdvReac Intermediate Vomiting Verified 05/18/24 10:43 doxycycline AdvReac Intermediate TEARS UP Verified 05/18/24 10:43 STOMACH- CAUSES ALOT OF PAIN hydrocodone AdvReac Intermediate vomiting, Verified 05/18/24 10:43 headache nitrofurantoin (From AdvReac Intermediate Vomiting Verified 05/18/24 10:43 Macrobid) albuterol AdvReac Mild HEADACHE,NA Verified 05/18/24 10:43 USEA bee venom protein (honey bee) AdvReac Mild swelling, Verified 05/18/24 10:43 vomiting calcium AdvReac Mild GI upset Verified 05/18/24 10:43 fluconazole AdvReac Mild Headache Verified 05/18/24 10:43 Current Medication List - Last Reconciled 05/18/24 by Alma Rodriguez alprazolam 0.25 mg tablet 0.25 mg PO BID PRN 30 days cholecalciferol (vitamin D3) 50 mcg (2,000 unit) capsule 50 mcg PO DAILY denosumab 60 mg/mL subcutaneous syringe (Prolia) 60 mg subcut [id number] fluticasone propionate 50 mcg/actuation nasal spray,suspension 1 spray Nostril-both DAILY loratadine 10 mg tablet 10 mg PO DAILY miconazole nitrate 2 % topical cream 1 applic topical BEDTIME 7 days multivitamin 1 tab PO Q OTHER DAY nystatin 100,000 unit/gram topical powder (Nystop) 1 applic topical BID PRN pantoprazole 40 mg tablet,delayed release 40 [...] release 24 hr 37.5 mg PO DAILY Nurse's Note: Pt here for 6 month f/u visit. Pt states increased dose of venlaxafine was too much , is caused fatigue. She went back 37.5mg dose is helping. Pt has c/o urinary frequency and back pain since 05/15/24. Pt has c/o bloating and reflux. Pt requesting neurology referral. Her kids think she forgetful. [facility] Medical History Acute UTI (urinary tract infection) Congenital ureteropelvic [...] AUDIT-C Alcohol Total Score: 0 Substance Use (more content not included)... Normal [facility] Bacterial urine cultureOrder ed By: Nicole Garcia on 05-18-2024 Bacteria identified Cx Nom (U) Escherichia coli Abnormal [facility] Bacteria identified Cx Nom (U) Escherichia coli Abnormal [facility] Laboratory - Chemistry and C hemistry - challengeon 05-18-2024 Bilirubin Ql (U) Small [facility] Glucose Ql (U) Negative [facility] Ketones Ql (U) Negative [facility] pH (U) 7.0 [pH] [facility] Specific gravity (U) [Rel density] 1.025 [facility] Urobilinogen (U) [Mass/Vol] 0.2 mg/dL [facility] - Specimen inform ationon 05-18-2024 Appearance (U) cloudy [facility] Color (U) Dark Yellow [facility] - Urinalysison Leukocyte esterase Test strip Ql (U) Large [facility] Nitrite Ql (U) Positive [facility] Protein Ql (U) +++ [facility] No Panel Informationon 05-18 Urine Occult Blood Moderate [facility] A.OFFVISon 04-21-2024 A.OFFVIS [facility] [address] [place] [id number] Office Visit Report Signed Patient Name: Sherry Ash [id number] Date of : 1945 Age/Sex: 78 / F Date of Service: Location: [facility] Urgent Care Attending physician: Tisha Lopez PA Intake Vital Signs 04/21/24 09:33 BP 106/59 L Respiration 18 Pulse 91 Pulse Source NIBP Temp 98.4 F Pulse Oximetry (%) 96 Intake Visit Reasons: Possible Kidney Infection Allergies Allergy/AdvReac Type Severity Reaction Status Date / Time oxycodone Allergy Severe Headache Verified 04/21/24 09:33 Iodinated Contrast Media Allergy Mild headache, Verified 04/21/24 09:33 burning skin Penicillins Allergy Mild Rash Verified 04/21/24 09:33 Quinolones Allergy Mild Rash Verified 04/21/24 09:33 moxifloxacin Allergy Unknown Unknown Verified 04/21/24 09:33 cephalexin AdvReac Intermediate Vomiting Verified 04/21/24 09:33 doxycycline AdvReac Intermediate TEARS UP Verified 04/21/24 09:33 STOMACH- CAUSES ALOT OF PAIN hydrocodone AdvReac Intermediate vomiting, Verified 04/21/24 09:33 headache nitrofurantoin (From AdvReac Intermediate Vomiting Verified 04/21/24 09:33 Macrobid) albuterol AdvReac Mild HEADACHE,NA Verified 04/21/24 09:33 USEA bee venom protein (honey bee) AdvReac Mild swelling, Verified 04/21/24 09:33 vomiting calcium AdvReac Mild GI upset Verified 04/21/24 09:33 fluconazole AdvReac Mild Headache Verified 04/21/24 09:33 Current Medication List - Last Reconciled 04/21/24 by Nina Mendoza alprazolam 0.25 mg tablet 0.25 mg PO BID PRN 30 days cholecalciferol (vitamin D3) 50 mcg (2,000 unit) capsule 50 mcg PO DAILY denosumab 60 mg/mL subcutaneous syringe (Prolia) 60 mg subcut [id number] fluticasone propionate 50 mcg/actuation nasal spray,suspension 1 spray Nostril-both DAILY loratadine 10 mg tablet 10 mg PO DAILY miconazole nitrate 2 % topical cream 1 applic topical BEDTIME 7 days multivitamin 1 tab PO DAILY nystatin 100,000 [...] venlafaxine 37.5 mg capsule,extended release 24 hr 75 mg (2 x 37.5 mg) PO DAILY 90 days NS Nurse's Note: started yesterday with nausea, then had to get up freq last night, ap1usfx just little at time, has low back pain and low abd pain. PFSH PFSH Medical History Acute UTI (urinary tract infection) Congenital ureteropelvic [...] Alcohol abuse Mother Elevated cholesterol Alcohol abuse Urgent Care Social History Social History History [...] Abuse: No Provider Notified of Abuse or Suspe (more content not included)... Normal [facility] Bacterial urine cultureOrder ed By: Tisha Lopez on 04-21-2024 Bacteria identified Cx Nom (U) Escherichia coli Abnormal [facility] Laboratory - Chemistry and C hemistry - challengeon 04-21-2024 Bilirubin Ql (U) Negative [facility] Glucose Ql (U) Negative [facility] Ketones Ql (U) Negative [facility] pH (U) 7.0 [pH] [facility] Specific gravity (U) [Rel density] 1.020 [facility] Urobilinogen (U) [Mass/Vol] 1 mg/dL [facility] Laboratory - Specimen inform ationon 04-21-2024 Appearance (U) cloudy [facility] Color (U) Yellow [facility] Laboratory - Urinalysison Leukocyte esterase Test strip Ql (U) Large [facility] Nitrite Ql (U) Positive [facility] Protein Ql (U) +++ [facility] No Panel Informationon 04-21 Urine Occult Blood Moderate [facility] A.OFFVISon 03-30-2024 AJOHNSON [facility] [address] [place] [address] Office Visit Report Signed Patient Name: Sherry Ash [id number] Date of : 1945 Age/Sex: 78 / F Date of Service: Location: [facility] Primary Care [place] Attending physician: Nicole Garcia DO Vital Signs [...] mg/mL subcutaneous syringe (Prolia) 60 mg subcut [id number] fluticasone propionate 50 mcg/actuation nasal spray,suspension 1 [...] GI virus. Pt states she went to [facility] in July, she was prescribed Linzess that made her sick. She does not have a f/u visit. [facility] Medical History (Updated 03/30/24 @ 08:49 by [...] Total Sc (more content not included)... 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 Y Exam Explained to Patient/Family? Y Was Patient Shielded? N Is Patient ? N Consent Form Completed? Hx Last Menstrual Period: Does Patient have a Diabetic Device? No Diabetic Device Type: Was the Diabetic Device Removed? If NO: was Removal Consent form completed? Patient was informed of radiation exposure prior to scan? Verified by Technologist:[id number] Comment: [id number] cc: DO Hugh Bustos MD Normal [facility] Absolute eosinophil countOrd ered By: Hugh Julian on 03-27-2024 Histamine release from basophils measurement 0.0 10'3/uL 0.0-0.4 [facility] Alanine aminotransferase (AL T) measurementOrdered By: Hugh Julian on 03-27-2024 ALT [Catalytic activity/Vol] 17 U/L 0-55 [facility] AST [Catalytic activity/Vol] 23 U/L 5-34 [facility] Alkaline phosphataseOrdered By: Hugh Julian on 03-27-2024 ALP [Catalytic activity/Vol] 62 U/L 40-150 [facility] Automated absolute lymphocyt e countOrdered By: Hugh Julian on 03-27-2024 Lymphocytes # (Auto) 1.5 10'3/uL 0.5-3.5 [facility] Automated absolute neutrophi l countOrdered By: Hugh Julian on 03-27-2024 Absolute Neutrophil 4.4 10'3/uL 1.5-5.6 [facility] Automated blood hematocrit ( volume fraction)Ordered By: Hugh Julian on 03-27-2024 Hematocrit (Bld) [Volume fraction] 37.6 % Normal 34.6-44.1 [facility] Comment on above: Performed By: #### C BCD #### Main Lab([id number]) [address] BUN venousOrdered By: Hugh donnelly on 03-27-2024 Urea nitrogen (BldV) [Mass/Vol] 13 mg/dL 7-18 [facility] Bacterial blood cultureOrder ed By: Hugh Julian on 03-27-2024 Bacteria identified Cx Nom (Bld) NO GROWTH AFTER 5 DAYS [facility] Bacteria identified Cx Nom (Bld) NO GROWTH AFTER 5 DAYS [facility] Basophils Auto (Bld) [#/Vol] Ordered By: Hugh Julian on 03-27-2024 Basophils (Bld) [#/Vol] 0.0 10'3/uL Low 0.1-0.2 [facility] Basophils/100 WBC Auto (Bld) Ordered By: Hugh Julian on 03-27-2024 Basophils/100 WBC (Bld) 1 % 0-1 F [facility] Blood Cultureon 03-27-2024 Bacteria identified Cx Nom (Bld) Blood Culture AA RIGHT AC [id number] GROWTH AFTER 5 DAYSL Normal [facility] Comment on above: Performed By: #### B LDT ####Main Lab,Main Lab([id number])[address] Blood anion gapOrdered By: Mary Julian on 03-27-2024 Anion gap (Bld) [Moles/Vol] 11 mmol/L 5-13 [facility] Blood erythrocytes count (nu mber/volume)Ordered By: Hugh Julian on 03-27-2024 RBC (Bld) [#/Vol] 4.32 10'6/uL 3.85-4.88 [facility] Blood platelets count (numbe r/volume)Ordered By: Hugh Julian on 03-27-2024 Platelets (Bld) [#/Vol] 143 10'3/uL 122-359 [facility] Calcium measurement (mass/vo lume)Ordered By: Hugh Julian on 03-27-2024 Calcium (Unsp spec) [Mass/Vol] 9.2 mg/dL 8.4-10.2 [facility] Complete Blood Count with Di ffon 03-27-2024 Basophils Absolute Auto 0.0 Low 0.1-0.2 F [facility] Comment on above: Performed By: #### C BCD #### Main Lab([id number]) [address] [place] [address] [place] Basophils Percent Auto 1 Normal 0-1 [facility] Comment on above: Performed By: #### C BCD #### Main Lab([id number]) [address] [place] [address] [place] Eosinophils Absolute Auto 0.0 Normal 0.0-0.4 [facility] Comment on above: Performed By: #### C BCD #### Main Lab([id number]) [address] [place] [address] [place] Eosinophils Percent Auto 0 Low 2-5 [facility] Comment on above: Performed By: #### C BCD #### Main Lab([id number]) [address] [place] [address] [place] Lymphocytes Absolute Auto 1.5 Normal 0.5-3.5 [facility] Comment on above: Performed By: #### C BCD #### Main Lab([id number]) [address] [place] [address] [place] Lymphocytes Percent Auto 24 Normal 20-35 [facility] Comment on above: Performed By: #### C BCD #### Main Lab([id number]) [address] [place] [address] [place] MCH (RBC) [Entitic mass] 34.0 pg Normal 32.7-34.8 [facility] Comment on above: Performed By: #### C BCD #### Main Lab([id number]) [address] [place] [address] [place] Monocytes Absolute Auto 0.4 Normal 0.2-0.8 F [facility] Comment on above: Performed By: #### C BCD #### Main Lab([id number]) [address] [place] [address] [place] Monocytes Percent Auto 6 Normal 4-12 [facility] Comment on above: Performed By: #### C BCD #### Main Lab([id number]) [address] [place] [address] [facility] Neutrophils (Bld) [#/Vol] 4.4 10*3/uL Normal 1.5-5.6 [facility] Comment on above: Performed By: #### C BCD #### Main Lab([id number]) [address] [place] [id number] [place] Platelets (Bld) [#/Vol] 143 10*3/uL Normal 122-359 [facility] Comment on above: Performed By: #### C BCD #### Main Lab([id number]) [address] [place] [address] [place] RBC (Bld) [#/Vol] 4.32 10*6/uL Normal 3.85-4.88 [facility] Comment on above: Performed By: #### C BCD #### Main Lab([id number]) [address] [place] [address] [place] WBC (Bld) [#/Vol] 6.2 10*3/uL Normal 3.2-9.3 [facility] Comment on above: Performed By: #### C BCD #### Main Lab([id number]) [address] [place] [address] [facility] Creatinine (Bld) [Mass/Vol]O rdered By: Hugh Julian on 03-27-2024 Creatinine [Mass/Vol] 0.87 mg/dL 0.57-1.11 [facility] EDon 03-27-2024 ED [facility] [address] [place] [address] Emergency Department Note Signed Patient Name: Sherry Ash Medical Rec ord #: [id number] Date of : 1945 Account #: [id number] Age/Sex: 78 / F Location: ED Attending [...] denosumab 60 mg/mL subcutaneous 60 mg subcut [id number] 08/26/23 03/27/24 History syringe (Prolia) rosuvastatin 40 [...] History (Review (more content not included)... Normal [facility] Eosinophils/100 WBC Auto (Bl d)Ordered By: Hugh Julian on 03-27-2024 Eosinophils/100 WBC (Bld) 0 % Low 2-5 [facility] Estimated glomerular filtrat ion rate (GFR) determinationOrdered By: Hugh Julian on 03-27-2024 GFR/1.73 sq M.predicted among non-blacks MDRD (S/P/Bld) [Vol rate/Area] mL/min/{1.73_m2} mL/min/1.7 3m2 [facility] Laboratory - Chemistry and C hemistry - challengeOrdered By: Hugh Julian on 03-27-2024 Albumin [Mass/Vol] 4.2 g/dL 3.2-4.6 [facility] Lactic acid measurementOrder ed By: Hugh Julian on 03-27-2024 Lactate [Moles/Vol] 1.2 mmol/L Normal 0.4-2.0 [facility] Comment on above: Order Comment: Yes/N o query for Sepsis Lactate Rule: Y Performed By: #### L ACTIC #### Main Lab([id number]) [address] Lipase measurementOrdered By : Hugh Julian on 03-27-2024 Lipase [Catalytic activity/Vol] 36 U/L 8-78 [facility] Lymphocyte percentage, autom atedOrdered By: Hugh Julian on 03-27-2024 Lymphocytes/100 WBC (Bld) 24 % 20-35 [facility] MCV (mean corpuscular volume ) determinationOrdered By: Hugh Julian on 03-27-2024 MCV (RBC) [Entitic vol] 87.0 fL Normal 83.0-97.4 F [facility] Comment on above: Performed By: #### C BCD #### Main Lab([id number]) [facility] [address] Manual blood neutrophil coun t as percentage of leukocytesOrdered By: Hugh Julian on 03-27-2024 Neutrophils/100 WBC (Bld) 70 % Normal 41-72 [facility] Comment on above: Performed By: #### C BCD #### Main Lab([id number]) [facility] [address] Mean corpuscular hemoglobin (MCH) determinationOrdered By: Hugh Julian on 03-27-2024 MCH (RBC) [Entitic mass] 29.6 pg Normal 27.8-33.2 [facility] Comment on above: Performed By: #### C BCD #### Main Lab([id number]) [facility] [address] Mean corpuscular hemoglobin concentration (MCHC) determinationOrdered By: Hugh Julian on 03-27-2024 MCHC (RBC) [Mass/Vol] 34.0 g/dL 32.7-34.8 [facility] Monocytes Auto (Bld) [#/Vol] Ordered By: Hugh Julian on 03-27-2024 Monocytes (Bld) [#/Vol] 0.4 10'3/uL 0.2-0.8 [facility] Monocytes/100 WBC Auto (Bld) Ordered By: Hugh Julian on 03-27-2024 Monocytes/100 WBC (Bld) 6 % 4-12 F [facility] MpvOrdered By: Hugh Julian on 03-27-2024 Platelet mean volume (Bld) [Entitic vol] 10.0 fL Normal 7.6-10.6 [facility] Comment on above: Performed By: #### C BCD #### Main Lab([id number]) [address] No Panel InformationOrdered By: Hugh Julian on 03-27-2024 Urine Bacteria Trace /hpf 0 [facility] Occult blood ur QLOrdered By : Hugh Julian on 03-27-2024 Hemoglobin Ql (U) Negative Negative [facility] RDWOrdered By: Hugh Julian on 03-27-2024 Erythrocyte distribution width (RBC) [Ratio] 13.2 % Normal 12.2-15.8 [facility] Comment on above: Performed By: #### C BCD #### Main Lab([id number]) [address] Serum or plasma bilirubin me asurement (mass/volume)Ordered By: Hugh Julian on 03-27-2024 Bilirubin [Mass/Vol] 0.6 mg/dL 0.0-1.0 [facility] Serum or plasma carbon dioxi de measurement (moles/volume)Ordered By: Hugh Julian on 03-27-2024 CO2 [Moles/Vol] 23 mmol/L 23-31 [facility] Serum or plasma chloride thom surement (moles/volume)Ordered By: Hugh Julian on 03-27-2024 Chloride [Moles/Vol] 105 mmol/L 98-107 [facility] Serum or plasma glucose eileen urement (mass/volume)Ordered By: Hugh Julian on 03-27-2024 Glucose [Mass/Vol] 111 mg/dL High 70-100 [facility] Serum or plasma potassium me asurement (moles/volume)Ordered By: Hugh Julian on 03-27-2024 Potassium [Moles/Vol] 4.2 mmol/L 3.5-5.1 [facility] Specific gravity Test strip (U) [Rel density]Ordered By: Hugh Julian on 03-27-2024 Specific gravity (U) [Rel density] 1.020 1.005-1.03 0 [facility] Squamous epithelial cells de tection in urine sediment by light microscopyOrdered By: uHgh Julian on 03-27-2024 Epithelial cells.squamous LM Ql (Urine sed) 0-2 0 [facility] Total protein bloodOrdered B y: Hugh Julian on 03-27-2024 Protein [Mass/Vol] 6.4 g/dL 6.4-8.2 [facility] UA with Reflex Cultureon Bilirubin Urine Negative Normal Negative [facility] Comment on above: Performed By: #### U AREFLEX #### Main Lab([id number]) [address] Glucose Urine UA Negative Normal Negative [facility] Comment on above: Performed By: #### U AREFLEX #### Main Lab([id number]) [address] Nitrite Urine Negative Normal NEGATIVE [facility] Comment on above: Performed By: #### U AREFLEX #### Main Lab([id number]) [address] [facility]. [address] Occult Blood Urine Negative Normal Negative [facility] Comment on above: Performed By: #### U AREFLEX #### Main Lab([id number]) [address] [place] [address] [place] Protein Urine (Multistix) Negative Normal Negative [facility] Comment on above: Performed By: #### U AREFLEX #### Main Lab([id number]) [address] [facility] [address] Urine 1.020 Normal 1.005 -1.03 0 [facility] Comment on above: Performed By: #### U AREFLEX #### Main Lab([id number]) [address] Urobilinogen Urine 0.2 Normal 0.2-1.0 [facility] Comment on above: Performed By: #### U AREFLEX #### Main Lab([id number]) [address] UA with Reflex CultureOrdere d By: Hugh Julian on 03-27-2024 Leukocyte esterase Test strip Ql (U) Negative Normal Negative [facility] Comment on above: Performed By: #### U AREFLEX #### Main Lab([id number]) [address] [place] [address] Urine appearance determinati onOrdered By: Hugh Julian on 03-27-2024 Appearance (U) Clear Normal CLEAR [facility] Comment on above: Performed By: #### U AREFLEX #### Main Lab([id number]) [address] [place] [address] Urine bilirubin measurementO rdered By: Hugh Julian on 03-27-2024 Bilirubin Ql (U) Negative Negative [facility] Urine color determinationOrd ered By: Hugh Julian on 03-27-2024 Color (U) Yellow Normal YELLOW [facility] Comment on above: Performed By: #### U AREFLEX #### Main Lab([id number]) [address] Urine glucose detection by a utomated test stripOrdered By: Hugh Julian on 03-27-2024 Glucose Auto test strip Ql (U) Negative Negative [facility] Urine ketones measurementOrd ered By: Hugh Julian on 03-27-2024 Ketones Ql (U) Negative Normal Negative [facility] Comment on above: Performed By: #### U AREFLEX #### Main Lab([id number]) [address] [place] [address] Urine microscopic examinatio n for leukocytesOrdered By: Hugh Julian on 03-27-2024 Urine Microscopic WBC 0-2 /hpf 0 [facility] Urine nitrite detection by a utomated test stripOrdered By: Hugh Julian on 03-27-2024 Nitrite Auto test strip Ql (U) Negative NEGATIVE [facility] Urine pH measurementOrdered By: Hugh Julian on 03-27-2024 pH (U) 8.0 [pH] Normal 5.5-8.0 [facility] Comment on above: Performed By: #### U AREFLEX #### Main Lab([id number]) [address] [place] [address] [facility] Urine protein measurementOrd ered By: Hugh Julian on 03-27-2024 Protein Ql (U) Negative Negative [facility] Urine sediment erythrocyte c ount by microscopy (number/high power field)Ordered By: Hugh Julian on 03-27-2024 RBC LM.HPF (Urine sed) [#/Area] 0-2 /hpf 0-2 [facility] Urine urobilinogen measureme ntOrdered By: Hugh Julian on 03-27-2024 Urobilinogen Ql (U) 0.2 EU/dL 0.2-1.0 [facility] Venous blood sodium measurem entOrdered By: Hugh Julian on 03-27-2024 Sodium (BldV) [Moles/Vol] 139 mmol/L 136-145 [facility] WBC totalOrdered By: Hugh knight on 03-27-2024 White Blood Count 6.2 10'3/uL 3.2-9.3 [facility] Whole blood hemoglobin measu rement (mass/volume)Ordered By: Hugh Julian on 03-27-2024 Hemoglobin (Bld) [Mass/Vol] 12.8 g/dL Normal 11.7-14.9 [facility] Comment on above: Performed By: #### C BCD #### Main Lab([id number]) [address] [place] [address] [facility] A.OFFVISon 02-28-2024 A.OFFVIS [facility] [address] [place] [address] Office Visit Report Signed Patient Name: Sherry Ash [id number] Date of : 1945 Age/Sex: 78 / F Date of Service: Location: [facility] Orthopedics Attending physician: Joy DIOP HPI HPI [...] has been under the care of a vascular tech and her PCP and has been taking [...] to track changes b. Follow up with vascular tech or PCP if worsens or no improvement [...] mg/mL subcutaneous syringe (Prolia) 60 mg subcut [id number] fluticasone propionate 50 mcg/actuation nasal spray,suspension 1 spray Nostril-both DAILY loratadine 10 mg tablet 10 mg PO DAILY metoclopramide HCl 10 mg tablet (Reglan) 10 mg PO BID 2 weeks multivitamin 1 tab PO DAILY pantoprazole 40 mg tablet,delayed release 40 mg PO BID 90 days polyethylene gl (more content not included)... Normal [facility] Urine Cultureon 02-20-2024 Bacteria identified Cx Nom [...] R >=16 F S <=0.5 F Normal [facility] Comment on above: Performed By: #### U R #### ML PITAon 02-17-2024 PITA [facility] [address] [place] [address] Office Visit Report Signed Patient Name: Sherry Ash [id number] Date of : 1945 Age/Sex: 78 / F Date of Service: Location: [facility] [facility] Attending physician: Nicole Garcia DO Vital Signs [...] mg/mL subcutaneous syringe (Prolia) 60 mg subcut [id number] fluticasone propionate 50 mcg/actuation nasal spray,suspension 1 [...] monostat and burning went away. [facility] Medical History Congenital ureteropelvic junction obstruction Granulomatous [...] No HPI (more content not included)... Normal [facility] Bacterial urine cultureOrder ed By: Nicole Garcia on 02-17-2024 Bacteria identified Cx Nom (U) Escherichia coli Abnormal [facility] Bacteria identified Cx Nom (U) Enterococcus faecalis Abnormal [facility] Bacteria identified Cx Nom (U) Escherichia coli Abnormal [facility] Bacteria identified Cx Nom (U) Enterococcus faecalis Abnormal [facility] Laboratory - Chemistry and C hemistry - challengeon 02-17-2024 Bilirubin Ql (U) Negative [facility] Glucose Ql (U) Negative [facility] Ketones Ql (U) Negative [facility] pH (U) 6.5 [pH] [facility] Specific gravity (U) [Rel density] 1.025 [facility] Urobilinogen (U) [Mass/Vol] 1 mg/dL [facility] Laboratory - Specimen inform ationon 02-17-2024 Appearance (U) clear [facility] Color (U) Yellow [facility] Laboratory - Urinalysison Leukocyte esterase Test strip Ql (U) Large [facility] Nitrite Ql (U) Negative [facility] Protein Ql (U) Trace [facility] No Panel Informationon 02-16 Urine Occult Blood Negative [facility] A.OFFVISon 01-24-2024 A.OFFVIS [facility] [address] [place] [id number] Office Visit Report Signed Patient Name: Sherry Ash [id number] Date of : 1945 Age/Sex: 78 / F Date of Service: Location: [facility] Attending physician: Nicole Garcia [...] mg/mL subcutaneous syringe (Prolia) 60 mg subcut [id number] fluticasone propionate 50 mcg/actuation nasal spray,suspension 1 [...] spot on arms and legs. [facility] Medical History Congenital ureteropelvic junction obstruction Granulomatous [...] of Sexual (more content not included)... Normal [facility] Laboratory - Chemistry and C hemistry - challengeon 01-24-2024 Bilirubin Ql (U) Negative [facility] Glucose Ql (U) Negative [facility] Ketones Ql (U) Negative [facility] pH (U) 5.5 [pH] [facility] Specific gravity (U) [Rel density] 1.005 [facility] Urobilinogen (U) [Mass/Vol] 0.2 mg/dL [facility] Laboratory - Specimen inform ationon 01-24-2024 Appearance (U) clear [facility] Color (U) Yellow [facility] - Urinalysison Leukocyte esterase Test strip Ql (U) Trace [facility] Nitrite Ql (U) Negative [facility] Protein Ql (U) Negative [facility] No Panel Informationon 01-23 Urine Occult Blood Trace-nonhemolyzed [facility] Absolute eosinophil countOrd ered By: Meena Dallas on 01-16-2024 Histamine release from basophils measurement Histamine release from basophils measurement 0.0-0.4 [facility] Histamine release from basophils measurement 0.0 10'3/uL 0.0-0.4 [facility] Alanine aminotransferase (AL T) measurementOrdered By: Meena Dallas on 01-16-2024 ALT [Catalytic activity/Vol] 16 U/L 0-55 [facility] AST [Catalytic activity/Vol] 22 U/L 5-34 [facility] AlbuminOrdered By: Meena Dallas on 01-16-2024 Albumin [Mass/Vol] 4.2 g/dL 3.2-4.6 [facility] Thin prep Papanicolaou smear with manual screening Thin prep Papanicolaou smear with manual screening 3.2-4.6 [facility] Alkaline phosphataseOrdered By: Meena Dallas on 01-16-2024 ALP [Catalytic activity/Vol] 55 U/L 40-150 [facility] Automated absolute lymphocyt e countOrdered By: Meena Dallas on 01-16-2024 Lymphocytes # (Auto) 1.2 10'3/uL 0.5-3.5 [facility] Automated absolute neutrophi l countOrdered By: Meena Dallas on 01-16-2024 Absolute Neutrophil 8.9 10'3/uL High 1.5-5.6 [facility] BUN venousOrdered By: Yuan Dallas on 01-16-2024 Urea nitrogen (BldV) [Mass/Vol] BUN venous High 12-15 [facility] Urea nitrogen (BldV) [Mass/Vol] 21 mg/dL High 12-15 [facility] Bacterial urine cultureOrder ed By: Meena Dallas on 01-16-2024 Bacteria identified Cx Nom (U) Escherichia coli Abnormal [facility] Bacteria identified Cx Nom (U) Strep agalactiae - (group b) Abnormal [facility] Bacteria identified Cx Nom (U) Escherichia coli Abnormal [facility] Bacteria identified Cx Nom (U) Strep agalactiae - (group b) Abnormal [facility] Basophils Auto (Bld) [#/Vol] Ordered By: Meena Dallas on 01-16-2024 Basophils (Bld) [#/Vol] Automated basophil count Low 0.1-0.2 [facility] Basophils (Bld) [#/Vol] 0.0 10'3/uL Low 0.1-0.2 [facility] Basophils/100 WBC Auto (Bld) Ordered By: Meena Dallas on 01-16-2024 Basophils/100 WBC (Bld) Automated basophil % 0- 1 [facility] Basophils/100 WBC (Bld) 0 % 0-1 F [facility] Blood anion gapOrdered By: Orlin Dallas on 01-16-2024 Anion gap (Bld) [Moles/Vol] Blood anion gap 5-13 [facility] Anion gap (Bld) [Moles/Vol] 10 mmol/L 5-13 [facility] Blood erythrocytes count (nu mber/volume)Ordered By: Meena Dallas on 01-16-2024 RBC (Bld) [#/Vol] Blood erythrocytes c ount (number/volume) 3.85-4.88 [facility] RBC (Bld) [#/Vol] 4.18 10'6/uL 3.85-4.88 [facility] Blood platelets count (numbe r/volume)Ordered By: Meena Dallas on 01-16-2024 Platelets (Bld) [#/Vol] Platelet count blood 12 2-359 [facility] Platelets (Bld) [#/Vol] 129 10'3/uL 122-359 [facility] Calcium measurement (mass/vo lume)Ordered By: Meena Dallas on 01-16-2024 Calcium (Unsp spec) [Mass/Vol] Calcium measurement (mass/volume) 8.4-10.2 [facility] Calcium (Unsp spec) [Mass/Vol] 9.2 mg/dL 8.4-10.2 [facility] Creatinine (Bld) [Mass/Vol]O rdered By: Meena Dallas on 01-16-2024 Creatinine [Mass/Vol] Blood creatinine measurement (mass/volume) 0.57-1.11 [facility] Creatinine [Mass/Vol] 0.94 mg/dL 0.57-1.11 [facility] Eosinophils/100 WBC Auto (Bl d)Ordered By: Meena Dallas on 01-16-2024 Eosinophils/100 WBC (Bld) Eosinophil percentage, automated Low 2-5 [facility] Eosinophils/100 WBC (Bld) 0 % Low 2-5 [facility] Estimated glomerular filtrat ion rate (GFR) determinationOrdered By: Meena Dallas on 01-16-2024 GFR/1.73 sq M.predicted among non-blacks MDRD (S/P/Bld) [Vol rate/Area] mL/min/{1.73_m2} mL/min/1.7 3m2 [facility] Hematocrit Auto (Bld) [Volum e fraction]Ordered By: Meena Dallas on 01-16-2024 Hematocrit (Bld) [Volume fraction] Automated blood hematocrit (percentage) 34.6-44.1 [facility] Hematocrit (Bld) [Volume fraction] 36.5 % 34.6-44.1 [facility] Laboratory - UrinalysisOrder ed By: Meena Dallas on 01-16-2024 Bacteria LM.HPF (Urine sed) [#/Area] 4 /[HPF] High 0 [facility] Leukocyte esterase Test strip Ql (U) Large High Negative [facility] Lipase measurementOrdered By : Meena Dallas on 01-16-2024 Lipase [Catalytic activity/Vol] 28 U/L 8-78 [facility] Lymphocyte percentage, autom atedOrdered By: Meena Dallas on 01-16-2024 Lymphocytes/100 WBC (Bld) 11 % Low 20-35 [facility] MCV (mean corpuscular volume ) determinationOrdered By: Meena Dallas on 01-16-2024 MCV (RBC) [Entitic vol] Determination of erythrocyte mean corpuscular volume (MCV) 83.0-97.4 [facility] MCV (RBC) [Entitic vol] 87.3 fL 83.0-97.4 F [facility] Mean corpuscular hemoglobin (MCH) determinationOrdered By: Meena Dallas on 01-16-2024 MCH (RBC) [Entitic mass] 29.9 pg 27.8-33.2 [facility] Mean corpuscular hemoglobin concentration (MCHC) determinationOrdered By: Meena Dallas on 01-16-2024 MCHC (RBC) [Mass/Vol] 34.2 g/dL 32.7-34.8 [facility] Monocytes Auto (Bld) [#/Vol] Ordered By: Meena Dallas on 01-16-2024 Monocytes (Bld) [#/Vol] Automated blood monocyte count 0.2-0.8 [facility] Monocytes (Bld) [#/Vol] 0.6 10'3/uL 0.2-0.8 [facility] Monocytes/100 WBC Auto (Bld) Ordered By: Meena Dallas on 01-16-2024 Monocytes/100 WBC (Bld) Monocyte percent age, automated 4-12 [facility] Monocytes/100 WBC (Bld) 5 % 4-12 F [facility] MpvOrdered By: Meena ulloa on 01-16-2024 Platelet mean volume (Bld) [Entitic vol] 10.1 fL 7.6-10.6 [facility] Neutrophils/100 WBC Manual c nt (Bld)Ordered By: Meena Dallas on 01-16-2024 Neutrophils/100 WBC (Bld) Manual blood neutrophil count as percentage of leukocytes High 41-72 [facility] Neutrophils/100 WBC (Bld) 84 % High 41-72 [facility] Occult blood ur QLOrdered By : Meena Dallas on 01-16-2024 Hemoglobin Ql (U) Occult blood ur QL Abnormal Negative [facility] Hemoglobin Ql (U) Large (3+) Abnormal Negative [facility] RDWOrdered By: Meena ulloa on 01-16-2024 Erythrocyte distribution width (RBC) [Ratio] 13.2 % 12.2-15.8 [facility] Serum or plasma bilirubin me asurement (mass/volume)Ordered By: Meena Dallas on 01-16-2024 Bilirubin [Mass/Vol] Serum or plasma yaakov irubin measurement (mass/volume) 0.0-1.0 [facility] Bilirubin [Mass/Vol] 0.8 mg/dL 0.0-1.0 [facility] Serum or plasma carbon dioxi de measurement (moles/volume)Ordered By: Meena Dallas on 01-16-2024 CO2 [Moles/Vol] Serum or plasma tota l carbon dioxide measurement (moles/volume) 23-31 [facility] CO2 [Moles/Vol] 23 mmol/L 23-31 [facility] Serum or plasma chloride thom surement (moles/volume)Ordered By: Meena Dallas on 01-16-2024 Chloride [Moles/Vol] Serum or plasma chl oride measurement (moles/volume) 98-107 [facility] Chloride [Moles/Vol] 106 mmol/L 98-107 [facility] Serum or plasma glucose eileen urement (mass/volume)Ordered By: Meena Dallas on 01-16-2024 Glucose [Mass/Vol] Serum glucose measur ement (mass/volume) High 70-100 [facility] Glucose [Mass/Vol] 119 mg/dL High 70-100 [facility] Serum or plasma potassium me asurement (moles/volume)Ordered By: Meena Dallas on 01-16-2024 Potassium [Moles/Vol] Serum or plasma po tassium measurement (moles/volume) 3.5-5.1 [facility] Potassium [Moles/Vol] 4.3 mmol/L 3.5-5.1 [facility] Specific gravity Test strip (U) [Rel density]Ordered By: Meena Dallas on 01-16-2024 Specific gravity (U) [Rel density] Specific gravity ur dipstick 1.005-1.03 0 [facility] Specific gravity (U) [Rel density] 1.025 1.005-1.03 0 [facility] Total protein bloodOrdered B y: Meena Dallas on 01-16-2024 Protein [Mass/Vol] Serum total protein measurement (mass/volume) 6.4-8.2 [facility] Protein [Mass/Vol] 6.7 g/dL 6.4-8.2 [facility] Urine appearance determinati onOrdered By: Meena Dallas on 01-16-2024 Appearance (U) Urine appearance CLEAR [facility] Appearance (U) Cloudy CLEAR [facility] Urine bilirubin measurementO rdered By: Meena Dallas on 01-16-2024 Bilirubin Ql (U) Negative Negative [facility] Urine color determinationOrd ered By: Meena Dallas on 01-16-2024 Color (U) Urine color YELLOW [facility] Color (U) Yellow YELLOW [facility] Urine glucose detection by a utomated test stripOrdered By: Meena Dallas on 01-16-2024 Glucose Auto test strip Ql (U) Urine glucose detection by automated test strip Negative [facility] Glucose Auto test strip Ql (U) Negative Negative [facility] Urine ketones measurementOrd ered By: Meena Dallas on 01-16-2024 Ketones Ql (U) Negative Negative [facility] Urine microscopic examinatio n for leukocytesOrdered By: Meena Dallas on 01-16-2024 Urine Microscopic WBC >100 /hpf High 0 [facility] Urine nitrite detection by a utomated test stripOrdered By: Meena Dallas on 01-16-2024 Nitrite Auto test strip Ql (U) Urine nitrite detection by automated test strip High NEGATIVE [facility] Nitrite Auto test strip Ql (U) Positive High NEGATIVE [facility] Urine pH measurementOrdered By: Meena Dallas on 01-16-2024 pH (U) pH of Urine 5.5-8.0 [facility] pH (U) 7.0 [pH] 5.5-8.0 [facility] Urine protein measurementOrd ered By: Meena Dallas on 01-16-2024 Protein Ql (U) 100 (2+) mg/dL Abnormal Negative [facility] Urine urobilinogen measureme ntOrdered By: Meena Dallas on 01-16-2024 Urobilinogen Ql (U) Urine urobilinogen measurement 0.2-1.0 [facility] Urobilinogen Ql (U) 1.0 EU/dL 0.2-1.0 [facility] Venous blood sodium measurem entOrdered By: Meena Dallas on 01-16-2024 Sodium (BldV) [Moles/Vol] Venous blood sodium measurement 136-145 [facility] Sodium (BldV) [Moles/Vol] 139 mmol/L 136-145 [facility] WBC totalOrdered By: Pierre Dallas on 01-16-2024 White Blood Count 10.7 10'3/uL High 3.2-9.3 [facility] Whole blood hemoglobin measu rement (mass/volume)Ordered By: Meena Dallas on 01-16-2024 Hemoglobin (Bld) [Mass/Vol] Blood hemoglobin measurement (mass/volume) 11.7-14.9 [facility] Comment on above: Delta: 10.5 on 04/12 Hemoglobin (Bld) [Mass/Vol] 12.5 g/dL 11.7-14.9 [facility] Comment on above: Delta: 10.5 on 04/12 Bacterial urine cultureOrder ed By: Nicole Garcia on 12-03-2023 Bacteria identified Cx Nom (U) Bacterial urine culture [facility] Bacteria identified Cx Nom (U) [facility] Bacterial urine cultureOrder ed By: Meera Pittman on 10-14-2023 Bacteria identified Cx Nom (U) Escherichia coli Abnormal [facility] Laboratory - Chemistry and C hemistry - challengeon 10-14-2023 Bilirubin Ql (U) Negative [facility] Glucose Ql (U) Negative [facility] Ketones Ql (U) Negative [facility] pH (U) 5.5 [pH] [facility] Specific gravity (U) [Rel density] 1.025 [facility] Urobilinogen (U) [Mass/Vol] 0.2 mg/dL [facility] Laboratory - Specimen inform ationon 10-14-2023 Appearance (U) clear [facility] Color (U) Yellow [facility] Laboratory - Urinalysison Leukocyte esterase Test strip Ql (U) Negative [facility] Nitrite Ql (U) Negative [facility] Protein Ql (U) + [facility] No Panel Informationon 10-13 Urine Occult Blood Negative [facility] CNPKarley 08-24-2023 ROBERT Telephone ([facility]) ----- SHERRY ASH ([id number]) 1945 F Date Time Provider Department 08/24/23 MIHIR AWAN [facility] During your visit today, we recorded the following information about you: Pablo Messer RN 08/24/2023 11:41 AM Signed Called patient, confirmed identity. Talked with patient , Gave patient information to contact pharmacist re other medication same class , covered by her insurance and less expensive. May also use Apps or coupons for medications on [employer] or other websites. Can contact quality improvement coordinator to see if she is eligible for [...] us know if any problems or concerns [facility] [phone] Allergies As of Date: 08/24/2023 Noted Allergy [...] Status:Closed by PABLO MESSER on 08/24/23 Normal [facility] ACETYLCHOLINE REC BINDING AB on 08-16-2023 ACETYLCHOLINE BINDING, QUAL Negative Normal Negative [facility] Comment on above: Order Comment: Isaac mays Type: BLOOD SPECIMEN Ordering Facility: [facility] Address: [address] [place] [address] Result Comment: Anti -acetylcholine receptor binding antibody test is used as an aid in diagnosis of myasthenia gravis. A negative result cannot exclude myasthenia gravis. Clinical correlation is required. Performed By: #### C ARNPL #### [facility] CLIA [id number] [address] [place] [address] [place] Acetylcholine receptor binding Ab (S) [Moles/Vol] <0.02 Normal <0.21 [facility] Comment on above: Order Comment: Isaac mays Type: BLOOD SPECIMEN Ordering Facility: [facility] Address: [address] [place] [address] Performed By: #### C ARNPL #### [facility] CLIA [id number] [address] [place] [address] [place] AMINO ACIDS, PLASMA W/ CONSU LTATIONon 08-16-2023 Alanine [Moles/Vol] 505 umol/L Normal 177-583 [facility] Comment on above: Order Comment: Isaac mays Type: BLOOD SPECIMEN Ordering Facility: [facility] Address: [address] [place] [address] Performed By: #### C ARNPL #### [facility] CLIA [id number] [address] [place] [address] [place] Alloisoleucine [Moles/Vol] <1 Normal 0-2 [facility] Comment on above: Order Comment: Speci men Type: BLOOD SPECIMEN Ordering Facility: [facility] Address: [address] [place] [address] Performed By: #### C ARNPL #### [facility] CLIA [id number] [address] [place] [address] [place] Alpha aminoadipate [Moles/Vol] <1 Normal 0-6 [facility] Comment on above: Order Comment: Speci men Type: BLOOD SPECIMEN Ordering Facility: [facility] Address: [address] [place] [address] Performed By: #### C ARNPL #### [facility] CLIA [id number] [address] [place] [address] [place] AMINO ACID CONSULTATION, PLASMA Normal [facility] Comment on above: Order Comment: Speci men Type: BLOOD SPECIMEN Ordering Facility: [facility] Address: [address] [place] [address] Result Comment: This plasma amino acid analysis shows no significant abnormalities. Reference intervals from Moreno E, Vicki MG, Jenkins NICO, and Lit DK: Biochemical Genetics: A Laboratory Manual, Copyright 1989 by [employer] Reference intervals not established for some amino acids. This test was developed and its performance characteristics determined by [facility]'s Aaron JSandra [facility] Pathology [facility] Laboratory [facility] [place] [facility]). It has not been cleared or approved by the FDA. [facility] is regulated under CLIA as qualified to perform high complexity testing. This test is used for clinical purposes. It should not be regarded as investigational or for research. Performed By: #### C ARNPL #### [facility] CLIA [id number] [address] [place] [address] [place] AMINO ACIDS REVIEW, PLASMA Reviewed by Juan Antonio León MD, Ph.D ([id number]) [facility] Comment on above: Order Comment: Speci men Type: BLOOD SPECIMEN Ordering Facility: [facility] Address: [address] [place] [address] Performed By: #### C ARNPL #### [facility] CLIA [id number] [address] [place] [address] [place] Arginine [Moles/Vol] 95 umol/L Normal 15-128 [facility] Comment on above: Order Comment: Speci men Type: BLOOD SPECIMEN Ordering Facility: [facility] Address: [address] [place] [address] Performed By: #### C ARNPL #### [facility] CLIA [id number] [address] [place] [address] [place] Asparagine [Moles/Vol] 81 umol/L High 35-74 So [facility] Comment on above: Order Comment: Speci men Type: BLOOD SPECIMEN Ordering Facility: [facility] Address: [address] [place] [address] Performed By: #### C ARNPL #### [facility] CLIA [id number] [address] [place] [address] [place] Aspartate [Moles/Vol] 4 umol/L Normal 1-25 [facility] Comment on above: Order Comment: Speci men Type: BLOOD SPECIMEN Ordering Facility: [facility] Address: [address] [place] [address] Performed By: #### C ARNPL #### [facility] CLIA [id number] [address] [place] [address] [place] Citrulline [Moles/Vol] 46 umol/L Normal 12-55 So [facility] Comment on above: Order Comment: Speci men Type: BLOOD SPECIMEN Ordering Facility: [facility] Address: [address] [place] [address] Performed By: #### C ARNPL #### [facility] CLIA [id number] [address] [place] [address] [place] Cystine [Moles/Vol] 63 umol/L Normal 5-82 [facility] Comment on above: Order Comment: Speci men Type: BLOOD SPECIMEN Ordering Facility: [facility] Address: [address] [place] [address] Performed By: #### C ARNPL #### [facility] CLIA [id number] [address] [place] [address] [place] Glutamate [Moles/Vol] 64 umol/L Normal 10-131 [facility] Comment on above: Order Comment: Speci men Type: BLOOD SPECIMEN Ordering Facility: [facility] Address: [address] [place] [address] Performed By: #### C ARNPL #### [facility] CLIA [id number] [address] [place] [address] [place] Glutamine [Moles/Vol] 574 umol/L Normal 205-756 [facility] Comment on above: Order Comment: Speci men Type: BLOOD SPECIMEN Ordering Facility: [facility] Address: [address] [place] [address] Performed By: #### C ARNPL #### [facility] CLIA [id number] [address] [place] [address] [place] Glycine [Moles/Vol] 301 umol/L Normal 151-490 [facility] Comment on above: Order Comment: Speci men Type: BLOOD SPECIMEN Ordering Facility: [facility] Address: [address] [place] [address] Performed By: #### C ARNPL #### [facility] CLIA [id number] [address] [place] [address] [place] Histidine [Moles/Vol] 78 umol/L Normal 72-124 [facility] Comment on above: Order Comment: Speci men Type: BLOOD SPECIMEN Ordering Facility: [facility] Address: [address] [place] [address] Performed By: #### C ARNPL #### [facility] CLIA [id number] [facility] [place] [address] [place] Hydroxylysine [Moles/Vol] <1 High <=0 [facility] Comment on above: Order Comment: Speci men Type: BLOOD SPECIMEN Ordering Facility: [facility] Address: [address] [place] [address] Performed By: #### C ARNPL #### [facility] CLIA [id number] [address] [place] [address] [place] Hydroxyproline [Moles/Vol] 13 umol/L Normal 0-53 [facility] Comment on above: Order Comment: Speci men Type: BLOOD SPECIMEN Ordering Facility: [facility] Address: [address] [place] [address] Performed By: #### C ARNPL #### [facility] CLIA [id number] [address] [place] [address] [place] Isoleucine [Moles/Vol] 86 umol/L Normal 30-108 So [facility] Comment on above: Order Comment: Speci men Type: BLOOD SPECIMEN Ordering Facility: [facility] Address: [address] [place] [address] Performed By: #### C ARNPL #### [facility] CLIA [id number] [address] [place] [address] [place] Leucine [Moles/Vol] 152 umol/L Normal 72-201 [facility] Comment on above: Order Comment: Speci men Type: BLOOD SPECIMEN Ordering Facility: [facility] Address: [address] [place] [address] Performed By: #### C ARNPL #### [facility] CLIA [id number] [address] [place] [address] [place] Lysine [Moles/Vol] 240 umol/L Normal 116-296 [facility] Comment on above: Order Comment: Speci men Type: BLOOD SPECIMEN Ordering Facility: [facility] Address: [address] [place] [address] Performed By: #### C ARNPL #### [facility] CLIA [id number] [address] [place] [address] [place] Methionine [Moles/Vol] 36 umol/L Normal 10-42 So [facility] Comment on above: Order Comment: Speci men Type: BLOOD SPECIMEN Ordering Facility: [facility] Address: [address] [place] [address] Performed By: #### C ARNPL #### [facility] CLIA [id number] [address] [place] [address] [place] Ornithine [Moles/Vol] 133 umol/L Normal 48-195 [facility] Comment on above: Order Comment: Speci men Type: BLOOD SPECIMEN Ordering Facility: [facility] Address: [address] [place] [address] Performed By: #### C ARNPL #### [facility] CLIA [id number] [address] [place] [address] [place] Phenylalanine [Moles/Vol] 86 umol/L High 35-85 [facility] Comment on above: Order Comment: Speci men Type: BLOOD SPECIMEN Ordering Facility: [facility] Address: [address] [place] [address] Performed By: #### C ARNPL #### [facility] CLIA [id number] [address] [place] [address] [place] Proline [Moles/Vol] 300 umol/L Normal 97-329 [facility] Comment on above: Order Comment: Speci men Type: BLOOD SPECIMEN Ordering Facility: [facility] Address: [address] [place] [address] Performed By: #### C ARNPL #### [facility] CLIA [id number] [address] [place] [address] [place] Sarcosine [Moles/Vol] <1 High <=0 [facility] Comment on above: Order Comment: Speci men Type: BLOOD SPECIMEN Ordering Facility: [facility] Address: [address] [place] [address] Performed By: #### C ARNPL #### [facility] CLIA [id number] [address] [place] [address] [place] Serine [Moles/Vol] 132 umol/L Normal 58-181 [facility] Comment on above: Order Comment: Speci men Type: BLOOD SPECIMEN Ordering Facility: [facility] Address: [address] [place] [address] Performed By: #### C ARNPL #### [facility] CLIA [id number] [address] [place] [address] [place] Taurine [Moles/Vol] 74 umol/L Normal 54-210 [facility] Comment on above: Order Comment: Speci men Type: BLOOD SPECIMEN Ordering Facility: [facility] Address: [address] [place] [address] Performed By: #### C ARNPL #### [facility] CLIA [id number] [address] [place] [address] [place] Threonine [Moles/Vol] 140 umol/L Normal 60-225 [facility] Comment on above: Order Comment: Speci men Type: BLOOD SPECIMEN Ordering Facility: [facility] Address: [address] [place] [address] Performed By: #### C ARNPL #### [facility] CLIA [id number] [address] [place] [address] [place] Tyrosine [Moles/Vol] 71 umol/L Normal 34-112 [facility] Comment on above: Order Comment: Speci men Type: BLOOD SPECIMEN Ordering Facility: [facility] Address: [address] [place] [address] Performed By: #### C ARNPL #### [facility] CLIA [id number] [address] [place] [address] [place] Valine [Moles/Vol] 251 umol/L Normal 119-336 [facility] Comment on above: Order Comment: Isaac mays Type: BLOOD SPECIMEN Ordering Facility: [facility] Address: [address] [place] [address] Performed By: #### C ARNPL #### [facility] CLIA [id number] [address] [place] [address] [place] C-REACTIVE PROTEIN (CRP)on 0 08-16-2023 CRP [Mass/Vol] <0.9 mg/dL [facility] CARNITINE FREE/TOTAL, PLASMA on 08-16-2023 C0 [Moles/Vol] 17 umol/L Low 22-54 [facility] Comment on above: Order Comment: Isaac mays Type: BLOOD SPECIMEN Ordering Facility: [facility] Address: [address] [place] [address] Performed By: #### C ARNPL #### [facility] CLIA [id number] [address] [place] [address] [place] C0/Total carnitine [Molar fraction] 0.773 Normal 0.700-0.90 0 [facility] Comment on above: Order Comment: Isaac mays Type: BLOOD SPECIMEN Ordering Facility: [facility] Address: [address] [place] [address] Result Comment: NOTE : The determination of [...] determined by the Pathology [facility] Laboratory Medicine [place] at the [facility]. The U.S. Food and Drug Administration has not approved or cleared this test, however, FDA clearance or approval is not currently required for clinical use. Performed By: #### C ARNPL #### [facility] CLIA [id number] [address] [place] [address] [place] Carnitine [Moles/Vol] 22 umol/L Low 27-68 [facility] Comment on above: Order Comment: Speci men Type: BLOOD SPECIMEN Ordering Facility: [facility] Address: [address] [place] [address] Performed By: #### C ARNPL #### [facility] CLIA [id number] [address] [place] [address] [place] CK CREATINE KINASEon 024 CK [Catalytic activity/Vol] 93 U/L 42 - 196 U/L [facility] CK SerPl-cCncon 08-16-2023 CK [Catalytic activity/Vol] 93 U/L Normal 42-196 [facility] Comment on above: Order Comment: Speci men Type: BLOOD SPECIMEN Ordering Facility: [facility] Address: [address] [place] [address] Performed By: #### 1 988-5, 2157-6 #### [facility] CLIA [id number] [address] [place] [address] [place] CNOVon 08-16-2023 CNOV Office Visit (GENSSP ) ----- SHERRY ASH ([id number]) 1945 F Date Time Provider Department 08/16/23 1:30 PM [facility]NA[facility]EL [facility] During your visit today, we recorded the following information about you: Pulse Blood pressure Weight Height 65/minute 117/58 67.8 kg 1.575 m HenrryelvieAnnabel, DO 08/16/2023 6:53 PM Signed [facility] [place] Gastroparesis/Dysmotility Consultation SERVICE DATE: 08/16/2023 SERVICE TIME: 1:26 PM PRIMARY CARE PHYSICIAN: No primary care provider on file. Taty Noble MD [address] [address] My final recommendations will be communicated back [...] in detail. Based on this discussion, Sherry Mihir wishes to proceed with continued medical therapies [...] were reviewed. NAME: Sherry Ash CLINIC NO: [id number] DATE OF SERVICE: August 16, 2023 This [...] None Smoking/Vapi (more content not included)... Normal [facility] CNOV Office Visit (GASTSP ) ----- SHERRY ASH ([id number]) 1945 F Date Time Provider Department 08/16/23 1:00 PM MIHIR AWAN GASTSP During your visit today, we recorded the following information about you: Pulse Blood pressure Weight Height 65/minute 117/58 67.8 kg 1.575 m Mihir Awan, 08/16/2023 2:08 PM Signed GASTROPARESIS CONSULT Patient [...] Medications - Does the patient see a painter set for chronic abdominal pain?No - Is the [...] - Has the patient met with a sprinkler inspector for diet recommendations with Gastroparesis? No - [...] stomach. - Normal examined duodenum. - The [employer] pH capsule was deployed. - No specimens collected. XR ABd 02/27/2020 Care everywhere IMPRESSION: 1. 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 Small bowel distention may reflect ileus or partial obstruction. UGI w/small bowel 08/21/2019 Care everywhere Findings: The hypopharynx cervical and thoracic esophagus appear normal. (more content not included)... Normal [facility] CNOV Office Visit (GASTSP ) ----- SHERRY ASH ([id number]) 1945 F Date Time Provider Department 08/16/23 11:00 AM ELECTROGASTROGRAM [facility] During your visit today, we recorded the following information about you: Cassia hCing MA 08/16/2023 1:02 PM Signed ELECTROGASTROGRAPY W/ TEST Operation / Procedure performed Referring Provider: MIHIR AWAN [[id number]] Allergies As of Date: 08/16/2023 Noted Allergy [...] Status:Closed by CASSIA CHING on 08/16/23 Normal [facility] CRP SerPl-mCncon 08-16-2023 CRP [Mass/Vol] mg/L Normal <0.9 [facility] Comment on above: Order Comment: Speci men Type: BLOOD SPECIMEN Ordering Facility: [facility] Address: [address] [place] [address] Performed By: #### 1 988-5, 2157-6 #### [facility] CLIA [id number] [place] [id number] [place] CYTOKINE PANEL 13, SERUMon 0 08-16-2023 INTERFERON GAMMA <4.2 Normal <=4.2 [facility] Comment on above: Order Comment: Speci men Type: BLOOD SPECIMEN Ordering Facility: [facility] Address: [address] [place] [address] Performed By: #### C ARNPL #### [facility] CLIA [id number] [address] [place] [address] [place] INTERLEUKIN 1 BETA <6.5 Normal <=6.7 [facility] Comment on above: Order Comment: Speci men Type: BLOOD SPECIMEN Ordering Facility: [facility] Address: [address] [place] [address] Performed By: #### C ARNPL #### [facility] CLIA [id number] [address] [place] [address] [place] INTERLEUKIN 10 <2.8 Normal <=2.8 [facility] Comment on above: Order Comment: Speci men Type: BLOOD SPECIMEN Ordering Facility: [facility] Address: [address] [place] [address] Performed By: #### C ARNPL #### [facility] CLIA [id number] [address] [place] [address] [place] INTERLEUKIN 12 <1.9 Normal <=1.9 [facility] Comment on above: Order Comment: Speci men Type: BLOOD SPECIMEN Ordering Facility: [facility] Address: [address] [place] [address] Performed By: #### C ARNPL #### [facility] CLIA [id number] [address] [place] [address] [place] INTERLEUKIN 13 <1.7 Normal <=2.3 [facility] Comment on above: Order Comment: Speci men Type: BLOOD SPECIMEN Ordering Facility: [facility] Address: [address] [place] [address] Performed By: #### C ARNPL #### [facility] CLIA [id number] [address] [place] [address] [place] INTERLEUKIN 17 <1.4 Normal <=1.4 [facility] Comment on above: Order Comment: Speci men Type: BLOOD SPECIMEN Ordering Facility: [facility] Address: [address] [place] [address] Performed By: #### C ARNPL #### [facility] CLIA [id number] [address] [place] [address] [place] INTERLEUKIN 2 <2.1 Normal <=2.1 [facility] Comment on above: Order Comment: Speci men Type: BLOOD SPECIMEN Ordering Facility: [facility] Address: [address] [place] [address] Performed By: #### C ARNPL #### [facility] CLIA [id number] [address] [place] [address] [place] INTERLEUKIN 4 (INT4) <2.2 Normal <=2.2 [facility] Comment on above: Order Comment: Speci men Type: BLOOD SPECIMEN Ordering Facility: [facility] Address: [address] [place] [address] Performed By: #### C ARNPL #### [facility] CLIA [id number] [address] [place] [address] [place] INTERLEUKIN 5 <2.1 Normal <=2.1 [facility] Comment on above: Order Comment: Speci men Type: BLOOD SPECIMEN Ordering Facility: [facility] Address: [address] [place] [address] Performed By: #### C ARNPL #### [facility] CLIA [id number] [address] [place] [address] [place] INTERLEUKIN 6 <2.0 Normal <=2.0 [facility] Comment on above: Order Comment: Speci men Type: BLOOD SPECIMEN Ordering Facility: [facility] Address: [address] [place] [address] Performed By: #### C ARNPL #### [facility] CLIA [id number] [address] [place] [address] [place] INTERLEUKIN 8 <3.0 Normal <=3.0 [facility] Comment on above: Order Comment: Speci men Type: BLOOD SPECIMEN Ordering Facility: [facility] Address: [address] [place] [address] Performed By: #### C ARNPL #### [facility] CLIA [id number] [address] [place] [address] [place] INTERLEUKIN-2 RECEPTOR 739.5 pg/mL Normal 175.3 -858. 2 [facility] Comment on above: Order Comment: Speci men Type: BLOOD SPECIMEN Ordering Facility: [facility] Address: [address] [place] [address] Performed By: #### C ARNPL #### [facility] CLIA [id number] [address] [place] [address] [place] TUMOR NECROSIS FACTOR - ALPHA <1.7 Normal <=7.2 [facility] Comment on above: Order Comment: Speci men Type: BLOOD SPECIMEN Ordering Facility: [facility] Address: [address] [place] [address] Result Comment: INTE RPRETIVE INFORMATION: Cytokines Results are used to understand the pathophysiology of immune, infectious, or inflammatory disorders, or may be used for research purposes. This test was developed and its performance characteristics determined by [employer] It has not been cleared or approved by the [place] Food and Drug Administration. This test was performed in a CLIA certified laboratory and is intended for clinical purposes. Performed By: [employer] [address] [place] [address] Assembler Fitter: Bc Calix MD, PhD CLIA Number: [id number] Performed By: #### C ARNPL #### [facility] IA [id number] [address] [place] [address] [place] ESR Westergren method (Bld) [Velocity]on 08-16-2023 ESR (Bld) [Velocity] 6 mm/h Normal 0-20 [facility] Comment on above: Order Comment: Speci men Type: BLOOD SPECIMEN Ordering Facility: [facility] Address: [address] [place] [address] Performed By: #### 4 537-7 #### [facility] IA [id number] [address] [place] [address] [place] ESTROGEN FRACTION BLon 08-15 ESTRADIOL 4.8 pg/mL Normal [facility] Comment on above: Order Comment: Speci men Type: BLOOD SPECIMEN Ordering Facility: [facility] Address: [address] [place] [address] Result Comment: REFE RENCE INTERVAL: Estradiol by [employer] For a complete set of all established reference intervals, refer to [employer]/Tests/Pub/[id number]. This test was developed and its performance characteristics determined by [employer] It has not been cleared or approved by the [place] Food and Drug Administration. This test was performed in a CLIA certified laboratory and is intended for clinical purposes. Performed By: #### C ARNPL #### [facility] CLIA [id number] [address] [place] [address] [place] ESTROGENS TOTAL 17.0 pg/mL Normal [facility] Comment on above: Order Comment: Speci men Type: BLOOD SPECIMEN Ordering Facility: [facility] Address: [address] [place] [address] Result Comment: Refe rence interval of estrogens (pg/mL) Estrone Estradiol Total Estrogens Early follicular <150.0 30.0-100.0 30.0-250.0 Late follicular 100.0-250.0 100.0-400.0 200.0-650.0 Luteal <200.0 50.0-150.0 50.0-350.0 Post-menopausal 3.0-32.0 2.0-21.0 5.0-52.0 REFERENCE INTERVAL: Estrogens Total Calculation For a complete set of all established reference intervals, refer to [employer]/Tests/Pub/[id number]. Performed By: [employer] [address] [place] [id number] Assembler Fitter: Bc Calix MD, PhD CLIA Number: [id number] Performed By: #### C ARNPL #### [facility] CLIA [id number] [address] [place] [address] [place] ESTRONE 12.2 pg/mL Normal [facility] Comment on above: Order Comment: Speci tabatha Type: BLOOD SPECIMEN Ordering Facility: [facility] Address: [address] [place] [address] Result Comment: INTERPRETIVE INFORMATION: Estrone [employer] For a complete set of all established reference intervals, refer to [employer]/Tests/Pub/[id number]. This test was developed and its performance characteristics determined by [employer] It has not been cleared or approved by the [place] Food and Drug Administration. This test was performed in a CLIA certified laboratory and is intended for clinical purposes. Performed By: #### C ARNPL #### [facility] CLIA [id number] [address] [place] [address] [place] GAD65 Ab Ser-aCncon 08-16-19 24 Glutamate decarboxylase 65 Ab Qn (S) <5.0 Normal <=5.0 [facility] Comment on above: Order Comment: Speci tabatha Type: BLOOD SPECIMEN Ordering Facility: [facility] Address: [address] [place] [address] Result Comment: Anti -glutamic acid decarboxylase antibody [...] required. Performed By: #### C ARNPL #### [facility] CLIA [id number] [address] [place] [address] [place] Glutamate decarboxylase 65 A b Qn (S)on 08-16-2023 GLUTAMIC ACID DECARBOXYLAS AB QUALITATIVE Negative Normal Negative [facility] Comment on above: Order Comment: Speci men Type: BLOOD SPECIMEN Ordering Facility: [facility] Address: [address] [place] [address] Performed By: #### C ARNPL #### [facility] CLIA [id number] [address] [place] [address] [place] IgA SerPl-mCncon 08-16-2023 IgA [Mass/Vol] 30 mg/dL Low 70-400 [facility] Comment on above: Order Comment: Speci men Type: BLOOD SPECIMEN Ordering Facility: [facility] Address: [address] [place] [address] Performed By: #### 2 458-8, 4352-9, 2465-3 #### [facility] CLIA [id number] [address] [place] [address] [place] IgG SerPl-mCncon 08-16-2023 IgG [Mass/Vol] 604 mg/dL Low 700-1600 [facility] Comment on above: Order Comment: Speci men Type: BLOOD SPECIMEN Ordering Facility: [facility] Address: [address] [place] [address] Performed By: #### 2 458-8, 3812-9, 2465-3 #### [facility] CLIA [id number] [address] [place], [place] [id number] [place] IgM SerPl-mCncon 08-16-2023 IgM [Mass/Vol] 50 mg/dL Normal 40-230 [facility] Comment on above: Order Comment: Speci men Type: BLOOD SPECIMEN Ordering Facility: [facility] Address: [address] [place] [address] Performed By: #### 2 458-8, 5232-9, 2465-3 #### [facility] CLIA [id number] [address] [place] [address] [place] LDH SerPl-cCncon 08-16-2023 LDH [Catalytic activity/Vol] 237 U/L High 135-214 [facility] Comment on above: Order Comment: Speci men Type: BLOOD SPECIMEN Ordering Facility: [facility] Address: [address] [place] [address] Performed By: #### C ARNPL #### [facility] CLIA [id number] [address] [place] [address] [place] ORGANIC ACIDS UR, QUANT W/CO NSULTon 08-16-2023 2-Hydroxyglutarate/Crea tinine (U) [Molar ratio] 5.0 umol/mmolCr Normal 0.6-17.7 [facility] Comment on above: Order Comment: Speci men Type: URINE SPECIMEN Ordering Facility: [facility] Address: [address] [place] [address] Performed By: #### L [id number] #### [facility] CLIA [id number] [address] [place] [address] [place] 2-Hydroxyisovalerate/Cr eatinine (U) [Molar ratio] <0.1 Normal 0.0-0.1 [facility] Comment on above: Order Comment: Speci men Type: URINE SPECIMEN Ordering Facility: [facility] Address: [address] [place] [address] Performed By: #### L [id number] #### [facility] CLIA [id number] [address] [place] [address] [place] 0-Zcpuat-0-hydroxybutyr ate (C5-OH)/Creatinine (U) [Molar ratio] <0.6 Normal 0.0-1.3 [facility] Comment on above: Order Comment: Speci men Type: URINE SPECIMEN Ordering Facility: [facility] Address: [address] [place] [address] Performed By: #### L [id number] #### [facility] CLIA [id number] [address] [place] [address] [place] 2-Methylbutyrylglycine/ Creatinine (U) [Molar ratio] <0.1 Normal 0.0-0.4 [facility] Comment on above: Order Comment: Speci men Type: URINE SPECIMEN Ordering Facility: [facility] Address: [address] [place] [address] Performed By: #### L [id number] #### [facility] CLIA [id number] [address] [place] [address] [place] 2-Methylcitrate/Creatin ine (U) [Molar ratio] 2.6 umol/mmolCr Normal 1.0-13.9 [facility] Comment on above: Order Comment: Speci men Type: URINE SPECIMEN Ordering Facility: [facility] Address: [address] [place] [address] Performed By: #### L [id number] #### [facility] CLIA [id number] [address] [place] [address] [place] 2-Oxoadipate/Creatinine (U) [Molar ratio] <1.6 Normal 0.0-3.3 [facility] Comment on above: Order Comment: Speci men Type: URINE SPECIMEN Ordering Facility: [facility] Address: [address] [place] [address] Performed By: #### L [id number] #### [facility] CLIA [id number] [address] [place] [address] [place] 3-Hydroxyglutarate/Crea tinine (U) [Molar ratio] 0.0 umol/mmolCr Normal 0.0-0.7 [facility] Comment on above: Order Comment: Speci men Type: URINE SPECIMEN Ordering Facility: [facility] Address: [address] [place] [address] Performed By: #### L [id number] #### [facility] CLIA [id number] [address] [place] [address] [place] 3-Hydroxyisovalerate/Cr eatinine (U) [Molar ratio] 7.4 umol/mmolCr Normal 2.1-27.3 [facility] Comment on above: Order Comment: Speci men Type: URINE SPECIMEN Ordering Facility: [facility] Address: [address] [place] [address] Performed By: #### L [id number] #### [facility] CLIA [id number] [address] [place] [address] [place] 3-Methylcrotonylglycine /Creatinine (U) [Molar ratio] <0.3 Normal <0.3 [facility] Comment on above: Order Comment: Speci men Type: URINE SPECIMEN Ordering Facility: [facility] Address: [address] [place] [address] Performed By: #### L [id number] #### [facility] CLIA [id number] [address] [place] [address] [place] 3-Methylglutaconate/Cre atinine (U) [Molar ratio] 5.0 umol/mmolCr High 0.0-2.0 [facility] Comment on above: Order Comment: Speci men Type: URINE SPECIMEN Ordering Facility: [facility] Address: [address] [place] [address] Performed By: #### L [id number] #### [facility] CLIA [id number] [address] [place] [address] [place] 3-Methylglutarate/Creat inine (U) [Molar ratio] 2.0 umol/mmolCr High 0.0-0.6 [facility] Comment on above: Order Comment: Speci men Type: URINE SPECIMEN Ordering Facility: [facility] Address: [address] [place] [address] Performed By: #### L [id number] #### [facility] CLIA [id number] [address] [place] [address] [place] 4-Hydroxyphenylacetate/ Creatinine (U) [Molar ratio] 27.9 umol/mmolCr Normal 5.7-147.5 [facility] Comment on above: Order Comment: Speci men Type: URINE SPECIMEN Ordering Facility: [facility] Address: [address] [place] [address] Performed By: #### L [id number] #### [facility] CLIA [id number] [address] [place] [address] [place] 4-Hydroxyphenyllactate/ Creatinine (U) [Molar ratio] 9.8 umol/mmolCr Normal 1.3-23.0 [facility] Comment on above: Order Comment: Speci men Type: URINE SPECIMEN Ordering Facility: [facility] Address: [address] [place] [address] Performed By: #### L [id number] #### [facility] CLIA [id number] [address] [place] [address] [place] 4-Hydroxyphenylpyruvate /Creatinine (U) [Molar ratio] 0.0 umol/mmolCr Normal <=0.0 [facility] Comment on above: Order Comment: Speci men Type: URINE SPECIMEN Ordering Facility: [facility] Address: [address] [place] [address] Performed By: #### L [id number] #### [facility] CLIA [id number] [address] [place] [address] [place] 5-Oxoproline/Creatinine (U) [Molar ratio] 2.4 umol/mmolCr Normal 0.4-3.1 [facility] Comment on above: Order Comment: Speci men Type: URINE SPECIMEN Ordering Facility: [facility] Address: [address] [place] [address] Performed By: #### L [id number] #### [facility] CLIA [id number] [address] [place] [address] [place] Acetoacetate/Creatinine (U) [Molar ratio] <0.9 High 0.0-0.5 [facility] Comment on above: Order Comment: Speci men Type: URINE SPECIMEN Ordering Facility: [facility] Address: [address] [place] [address] Performed By: #### L [id number] #### [facility] CLIA [id number] [address] [place] [address] [place] Aconitate/Creatinine (U) [Molar ratio] 19.7 umol/mmolCr Normal 8.5-109.6 [facility] Comment on above: Order Comment: Speci men Type: URINE SPECIMEN Ordering Facility: [facility] Address: [address] [place] [address] Performed By: #### L [id number] #### [facility] CLIA [id number] [address] [place] [address] [place] Adipate/Creatinine (U) [Molar ratio] 2.5 umol/mmolCr Normal 0.3-9.2 [facility] Comment on above: Order Comment: Speci men Type: URINE SPECIMEN Ordering Facility: [facility] Address: [address] [place] [address] Performed By: #### L [id number] #### [facility] CLIA [id number] [address] [place] [address] [place] Alpha hydroxybutyrate/Creatin ine (U) [Molar ratio] 1.2 umol/mmolCr Normal 0.0-2.7 [facility] Comment on above: Order Comment: Speci men Type: URINE SPECIMEN Ordering Facility: [facility] Address: [address] [place] [address] Performed By: #### L [id number] #### [facility] CLIA [id number] [address] [place] [address] [place] Alpha ketoglutarate/Creatinin e (U) [Molar ratio] 18.8 umol/mmolCr Normal 0.2-42.7 [facility] Comment on above: Order Comment: Speci men Type: URINE SPECIMEN Ordering Facility: [facility] Address: [address] [place] [address] Performed By: #### L [id number] #### [facility] CLIA [id number] [address] [place] [address] [place] Benzoate/Creatinine (U) [Molar ratio] <12.2 Normal 0.0-14.6 [facility] Comment on above: Order Comment: Speci men Type: URINE SPECIMEN Ordering Facility: [facility] Address: [address] [place] [address] Performed By: #### L [id number] #### [facility] CLIA [id number] [address] [place] [address] [place] Beta hydroxybutyrate/Creatin ine (U) [Molar ratio] 2.7 umol/mmolCr High 0.1-2.6 [facility] Comment on above: Order Comment: Speci men Type: URINE SPECIMEN Ordering Facility: [facility] Address: [address] [place] [address] Performed By: #### L [id number] #### [facility] CLIA [id number] [address] [place] [address] [place] Butyrylglycine/Creatini ne (U) [Molar ratio] 0.0 umol/mmolCr Normal 0.0-0.7 [facility] Comment on above: Order Comment: Speci men Type: URINE SPECIMEN Ordering Facility: [facility] Address: [address] [place] [address] Performed By: #### L [id number] #### [facility] CLIA [id number] [address] [place] [address] [place] Creatinine (U) [Mass/Vol] 66.8 mg/dL Normal 42.2-237.9 [facility] Comment on above: Order Comment: Speci men Type: URINE SPECIMEN Ordering Facility: [facility] Address: [address] [place] [address] Performed By: #### L [id number] #### [facility] CLIA [id number] [address] [place] [address] [place] Ethylmalonate/Creatinin e (U) [Molar ratio] 2.9 umol/mmolCr Normal 0.5-6.2 [facility] Comment on above: Order Comment: Speci men Type: URINE SPECIMEN Ordering Facility: [facility] Address: [address] [place] [address] Performed By: #### L [id number] #### [facility] CLIA [id number] [address] [place] [address] [place] Fumarate/Creatinine (U) [Molar ratio] 1.2 umol/mmolCr Normal 0.3-2.6 [facility] Comment on above: Order Comment: Speci men Type: URINE SPECIMEN Ordering Facility: [facility] Address: [address] [place] [address] Performed By: #### L [id number] #### [facility] CLIA [id number] [address] [place] [address] [place] Glutarate/Creatinine (U) [Molar ratio] <0.1 Normal 0.0-1.4 [facility] Comment on above: Order Comment: Speci men Type: URINE SPECIMEN Ordering Facility: [facility] Address: [address] [place] [address] Performed By: #### L [id number] #### [facility] CLIA [id number] [address] [place] [address] [place] Hexanoylglycine/Creatin ine (U) [Molar ratio] <0.1 Normal 0.0-0.1 [facility] Comment on above: Order Comment: Speci men Type: URINE SPECIMEN Ordering Facility: [facility] Address: [address] [place] [address] Performed By: #### L [id number] #### [facility] CLIA [id number] [address] [place] [address] [place] Isobutyrylglycine/Creat inine (U) [Molar ratio] 0.2 umol/mmolCr Normal 0.0-1.2 [facility] Comment on above: Order Comment: Speci men Type: URINE SPECIMEN Ordering Facility: [facility] Address: [address] [place] [address] Performed By: #### L [id number] #### [facility] CLIA [id number] [address] [place] [address] [place] Isocitrate/Creatinine (U) [Molar ratio] 75.9 umol/mmolCr Normal 9.1-271.9 [facility] Comment on above: Order Comment: Speci men Type: URINE SPECIMEN Ordering Facility: [facility] Address: [address] [place] [address] Performed By: #### L [id number] #### [facility] CLIA [id number] [address] [place] [address] [place] Lactate/Creatinine (U) [Molar ratio] 16.7 umol/mmolCr Normal 2.9-47.2 [facility] Comment on above: Order Comment: Speci men Type: URINE SPECIMEN Ordering Facility: [facility] Address: [address] [place] [address] Performed By: #### L [id number] #### [facility] CLIA [id number] [address] [place] [address] [place] Malate/Creatinine (U) [Molar ratio] 2.3 umol/mmolCr High 0.0-1.1 [facility] Comment on above: Order Comment: Speci men Type: URINE SPECIMEN Ordering Facility: [facility] Address: [address] [place] [address] Performed By: #### L [id number] #### [facility] CLIA [id number] [address] [place] [address] [place] Malonate/Creatinine (U) [Molar ratio] 0.1 umol/mmolCr Normal 0.0-0.1 [facility] Comment on above: Order Comment: Speci men Type: URINE SPECIMEN Ordering Facility: [facility] Address: [address] [place] [address] Performed By: #### L [id number] #### [facility] CLIA [id number] [address] [place] [address] [place] Methylmalonate/Creatini ne (U) [Molar ratio] <0.4 Normal 0.0-0.6 [facility] Comment on above: Order Comment: Speci men Type: URINE SPECIMEN Ordering Facility: [facility] Address: [address] [place] [address] Performed By: #### L [id number] #### [facility] CLIA [id number] [address] [place] [address] [place] Methylsuccinate/Creatin ine (U) [Molar ratio] 0.9 umol/mmolCr Normal 0.0-1.4 [facility] Comment on above: Order Comment: Speci men Type: URINE SPECIMEN Ordering Facility: [facility] Address: [address] [place] [address] Performed By: #### L [id number] #### [facility] CLIA [id number] [address] [place] [address] [place] N-acetylaspartate/Creat inine (U) [Molar ratio] 1.6 umol/mmolCr Normal 0.1-8.9 [facility] Comment on above: Order Comment: Speci men Type: URINE SPECIMEN Ordering Facility: [facility] Address: [address] [place] [address] Performed By: #### L [id number] #### [facility] CLIA [id number] [address] [place] [address] [place] N-acetyltyrosine/Creati nine (U) [Molar ratio] 0.7 umol/mmolCr Normal 0.0-1.2 [facility] Comment on above: Order Comment: Speci men Type: URINE SPECIMEN Ordering Facility: [facility] Address: [address] [place] [address] Performed By: #### L [id number] #### [facility] CLIA [id number] [address] [place] [address] [place] Oxalate/Creatinine (U) [Molar ratio] 2.3 umol/mmolCr Normal 0.7-12.4 [facility] Comment on above: Order Comment: Speci men Type: URINE SPECIMEN Ordering Facility: [facility] Address: [address] [place] [address] Performed By: #### L [id number] #### [facility] CLIA [id number] [address] [place] [address] [place] Pyruvate/Creatinine (U) [Molar ratio] 0.5 umol/mmolCr Normal 0.1-2.6 [facility] Comment on above: Order Comment: Speci men Type: URINE SPECIMEN Ordering Facility: [facility] Address: [address] [place] [address] Performed By: #### L [id number] #### [facility] CLIA [id number] [address] [place] [address] [place] Sebacate (C8)/Creatinine (U) [Molar ratio] <3.4 High 0.0-0.3 [facility] Comment on above: Order Comment: Speci men Type: URINE SPECIMEN Ordering Facility: [facility] Address: [address] [place] [address] Performed By: #### L [id number] #### [facility] CLIA [id number] [address] [place] [address] [place] Suberate/Creatinine (U) [Molar ratio] 2.4 umol/mmolCr Normal 0.0-7.4 [facility] Comment on above: Order Comment: Speci men Type: URINE SPECIMEN Ordering Facility: [facility] Address: [address] [place] [address] Performed By: #### L [id number] #### [facility] CLIA [id number] [address] [place] [address] [place] Suberylglycine/Creatini ne (U) [Molar ratio] 0.0 umol/mmolCr Normal <=0.0 [facility] Comment on above: Order Comment: Speci men Type: URINE SPECIMEN Ordering Facility: [facility] Address: [address] [place] [address] Performed By: #### L [id number] #### [facility] CLIA [id number] [address] [place] [address] [place] Succinate/Creatinine (U) [Molar ratio] 4.6 umol/mmolCr Normal 0.3-27.4 [facility] Comment on above: Order Comment: Speci men Type: URINE SPECIMEN Ordering Facility: [facility] Address: [address] [place] [address] Performed By: #### L [id number] #### [facility] CLIA [id number] [address] [place] [address] [place] Succinylacetone/Creatin ine (U) [Molar ratio] <0.4 Normal <0.4 [facility] Comment on above: Order Comment: Speci men Type: URINE SPECIMEN Ordering Facility: [facility] Address: [address] [place] [address] Performed By: #### L [id number] #### [facility] CLIA [id number] [address] [place] [address] [place] UOA CONSULTATION Normal [facility] Comment on above: Order Comment: Speci men Type: URINE SPECIMEN Ordering Facility: [facility] Address: [address] [place] [address] Result Comment: This urinary organic acid analysis [...] and its performance characteristics determined by the [facility]. It has not been cleared or approved by the [place] Food and Drug Administration. The FDA had determined that such clearance or approval is not necessary. Performed By: #### L [id number] #### [facility] CLIA [id number] [address] [place] [address] [place] UOA REVIEW Reviewed by Juan Antonio León MD, Ph.D ([id number]) Normal [facility] Comment on above: Order Comment: Speci men Type: URINE SPECIMEN Ordering Facility: [facility] Address: [address] [place] [address] Performed By: #### L [id number] #### [facility] CLIA [id number] [address] [place] [address] [place] Uracil/Creatinine (U) [Molar ratio] 2.1 umol/mmolCr Normal 0.0-5.1 [facility] Comment on above: Order Comment: Speci men Type: URINE SPECIMEN Ordering Facility: [facility] Address: [address] [place] [address] Performed By: #### L [id number] #### [facility] CLIA [id number] [address] [place] [address] [place] VOLTAGE GATED CA IGGon 08-15 P/Q-TYPE CALCIUM CHANNEL ANTIBODY 0.0 pmol/L Normal 0.0-24.5 [facility] Comment on above: Order Comment: Speci men Type: BLOOD SPECIMEN Ordering Facility: [facility] Address: [address] [place] [address] Result Comment: INTE RPRETIVE INFORMATION: P/Q-Type Calcium Channel Antibody 0.0 to 24.5 pmol/L ............. Negative 24.6 to 45.6 pmol/L ............ Indeterminate 45.7 pmol/L or greater.......... Positive This test was developed and its performance characteristics determined by [employer] It has not been cleared or approved by the [place] Food and Drug Administration. This test was performed in a CLIA certified laboratory and is intended for clinical purposes. Performed By: [employer] [address] [place] [address] Assembler Fitter: Bc Calix MD, PhD CLIA Number: [id number] Performed By: #### C ARNPL #### [facility] CLIA [id number] [address] [place] [address] [place] VOLTAGE-GATED POTASSIUM AKBAR ABon 08-16-2023 VOLTAGE-GATED POTASSIUM CHANNEL AB, SER 0 pmol/L Normal 0-31 [facility] Comment on above: Order Comment: Speci men Type: BLOOD SPECIMEN Ordering Facility: [facility] Address: [address] [place] [address] Result Comment: INTE RPRETIVE INFORMATION: Voltage-Gated Potassium [...] developed and its performance characteristics determined by [employer] It has not been cleared or approved by the [place] Food and Drug Administration. This test was performed in a CLIA certified laboratory and is intended for clinical purposes. Performed By: [employer] [address] [place] [address] Assembler Fitter: Bc Calix MD, PhD CLIA Number: [id number] Performed By: #### V GKCAB #### [facility] CLIA [id number] [address] [place] [address] XR ABDOMEN 1V SUPINEon 08-15 XR ABDOMEN [...] on Aug 16 2023 3:53PM EST [id number] Normal [facility] XR Abdomen Supine and Uprigh ton 08-16-2023 [facility] Laboratory - Chemistry and C hemistry - challengeon 08-13-2023 Bilirubin Ql (U) Negative [facility] Glucose Ql (U) Negative [facility] Ketones Ql (U) Negative [facility] pH (U) 6.5 [pH] [facility] Specific gravity (U) [Rel density] 1.015 [facility] Urobilinogen (U) [Mass/Vol] 0.2 mg/dL [facility] Laboratory - Specimen inform ationon 08-13-2023 Appearance (U) clear [facility] Color (U) Yellow [facility] Laboratory - Urinalysison Leukocyte esterase Test strip Ql (U) Moderate [facility] Nitrite Ql (U) Negative [facility] Protein Ql (U) Negative [facility] No Panel Informationon 08-12 Urine Occult Blood Negative [facility] Urine culture routineOrdered By: Nicole Garcia on 08-13-2023 Bacteria identified Cx Nom (U) Escherichia coli Abnormal [facility] Bacteria identified Cx Nom (U) Strep agalactiae - (group b) Abnormal [facility] CNPNon 08-12-2023 CNPN Telephone ([facility]) ----- SHERRY ASH ([id number]) 1945 F Date Time Provider Department 08/12/23 MIHIR AWAN GASTSP During your visit today, [...] Never Reviewed Reason for Visit: Care Coordination [9031] Cmt: Gastroparesis clinic: chart review; new patient call - no answer. Problem List As Of Date: 08/12/2023 (None) Encounter Status:Closed by MARCOS RAMIREZ on 08/12/23 Normal [facility] Laboratory - Chemistry and C hemistry - challengeon 08-03-2023 Bilirubin Ql (U) Negative [facility] Glucose Ql (U) Negative [facility] Ketones Ql (U) Negative [facility] pH (U) 5.5 [pH] [facility] Specific gravity (U) [Rel density] 1.020 [facility] Urobilinogen (U) [Mass/Vol] 0.2 mg/dL [facility] Laboratory - Specimen inform ationon 08-03-2023 Appearance (U) clear [facility] Color (U) Yellow [facility] Laboratory - Urinalysison Leukocyte esterase Test strip Ql (U) Trace [facility] Nitrite Ql (U) Negative [facility] Protein Ql (U) Negative [facility] No Panel Informationon 08-02 Urine Occult Blood Negative [facility] Urine culture routineOrdered By: Tisha Lopez on 08-03-2023 Bacteria identified Cx Nom (U) [facility] Histamine release from basop hils measurementOrdered By: Joy Wan on 08-02-2023 Chloride [Moles/Vol] 104 mmol/L 98-107 [facility] Creatinine [Mass/Vol] 1.01 mg/dL 0.57-1.11 [facility] Histamine release from basophils measurement 56 Low mL/min/1.7 3m2 [facility] Laboratory - Chemistry and C hemistry - challengeOrdered By: Joy Wan on 08-02-2023 ALP [Catalytic activity/Vol] 58 U/L 40-150 [facility] ALT [Catalytic activity/Vol] 18 U/L 0-55 [facility] Anion gap [Moles/Vol] 9 mmol/L 5-13 [facility] AST [Catalytic activity/Vol] 23 U/L 5-34 [facility] Calcium [Mass/Vol] 9.5 mg/dL 8.4-10.2 [facility] CO2 [Moles/Vol] 26 mmol/L 23-31 [facility] Glucose [Mass/Vol] 95 mg/dL 70-100 [facility] No Panel InformationOrdered By: Joy Wan on 08-02-2023 Parathyroid Hormone (Intact) 25 pg/mL 14-64 [facility] Comment on above: Interpretive Guide I ntact PTH CalciumNormal Parathyroid Normal NormalHypoparathyroidism Low or Low Normal LowHyperparathyroidism Primary Normal or High High Secondary High Normal or Low Tertiary High HighNon-Parathyroid Hypercalcemia Low or Low Normal HighFor additional information, please refer [email or web address](This link is being provided for informational/educational purposes only.)Test Performed by [employer] [facility],[address] [place] [id number] Fuller M.D., Ph.D., Director of [phone], CLIA [id number] Vitamin D 25-Hydroxy 58.5 ng/mL 30.0-100.0 [facility] Serum or plasma bilirubin me asurement (mass/volume)Ordered By: Joy Wan on 08-02-2023 Bilirubin [Mass/Vol] 0.7 mg/dL 0.0-1.0 [facility] Serum or plasma potassium me asurement (moles/volume)Ordered By: Joy Wan on 08-02-2023 Potassium [Moles/Vol] 4.2 mmol/L 3.5-5.1 [facility] Serum total protein measurem ent (mass/volume)Ordered By: Joy Wan on 08-02-2023 Protein [Mass/Vol] 6.7 g/dL 6.4-8.2 [facility] Thin prep Papanicolaou smear with manual screeningOrdered By: Joy Wan on 08-02-2023 Thin prep Papanicolaou smear with manual screening 18 mg/dL 7-18 [facility] Thin prep Papanicolaou smear with manual screening 4.2 g/dL 3.2-4.6 [facility] Venous blood sodium measurem entOrdered By: Joy Wan on 08-02-2023 Sodium (BldV) [Moles/Vol] 139 mmol/L 136-145 [facility] Maryam 06-23-2023 CNPN Telephone ([facility]) ----- SHERRY ASH ([id number]) 1945 F Date Time Provider Department 06/23/23 MIHIR AWAN GAST During your visit today, we recorded the following information about you: Vance Allen 06/23/2023 9:21 AM Signed ----- Message from Caroline Plasencia sent at 06/14/2023 12:32 PM EST ----- Regarding: Gastro for Gastroparesis Sherry Mihir is being referred to or the Gastroparesis [...] G/J Tube?No Preferred phone number for contact: [phone] HOME ? Send to GASTROPARESIS SCHEDULING POOL [[phone]] Vance Allen 06/23/2023 9:25 AM Signed Left [...] G/J Tube? No Referring Provider: Taty Noble PHARMACOEPIDEMIOLOGIST Records in scanned documents Mihir Awan DO 07/07/2023 12:47 PM Signed Me and surgery, egg is in Mihir Awan DO 07/07/2023 12:47 PM Signed Addended by: MIHIR AWAN on: 07/07/2023 12:47 PM Modules accepted: Orders Vance Allen 07/13/2023 3:58 PM Signed Patient is scheduled. Allergies As of Date: 06/23/2023 (Not on File) Date Reviewed: Never Reviewed Reason for Visit: Appointment [[id number]] Primary Visit Diagnosis:Gastroparesis [K31.84] Order(s):EGG (ELECTROGASTROGRAPHY) [25026QMQ] Order #: [id number] Problem List As Of Date: 06/23/2023 (None) Encounter Status:Closed by VANCE ALLEN on 06/23/23 Normal [facility] Basophils Auto (Bld) [#/Vol] Ordered By: Ricky Singh on 04-12-2023 Basophils (Bld) [#/Vol] 0.0 10'3/uL Low 0.1-0.2 [facility] Basophils/100 WBC Auto (Bld) Ordered By: Ricky Singh on 04-12-2023 Basophils/100 WBC (Bld) 1 % 0-1 F [facility] Determination of erythrocyte mean corpuscular volume (MCV)Ordered By: Ricky Singh on 04-12-2023 MCV (RBC) [Entitic vol] 86.0 fL 83.0-97.4 F [facility] Eosinophils/100 WBC Auto (Bl d)Ordered By: Ricky Singh on 04-12-2023 Eosinophils/100 WBC (Bld) 2 % 2-5 [facility] Histamine release from basop hils measurementOrdered By: Ricky Singh on 04-12-2023 Glucose (U) [Mass/Vol] Negative Negative [facility] Chloride [Moles/Vol] 105 mmol/L 98-107 [facility] Creatinine [Mass/Vol] 0.95 mg/dL 0.57-1.11 [facility] Hemoglobin (Bld) [Mass/Vol] 10.5 g/dL Low 11.7-14.9 [facility] Histamine release from basophils measurement 0.1 10'3/uL 0.0-0.4 [facility] Histamine release from basophils measurement 60 mL/min/1.7 3m2 [facility] Laboratory - Chemistry and C hemistry - challengeOrdered By: Ricky Singh on 04-12-2023 Bilirubin Ql (U) Negative Negative [facility] Ketones Ql (U) Negative Negative [facility] ALP [Catalytic activity/Vol] 62 U/L 40-150 [facility] ALT [Catalytic activity/Vol] 11 U/L 0-55 [facility] Anion gap [Moles/Vol] 12 mmol/L 5-13 [facility] AST [Catalytic activity/Vol] 17 U/L 5-34 [facility] Calcium [Mass/Vol] 9.0 mg/dL 8.4-10.2 [facility] CK [Catalytic activity/Vol] 73 U/L 29-168 [facility] CK.MB [Mass/Vol] 1.1 ng/mL 1.0-3.6 [facility] CO2 [Moles/Vol] 20 mmol/L Low 23-31 [facility] Glucose [Mass/Vol] 174 mg/dL High 70-100 [facility] Lipase [Catalytic activity/Vol] 29 U/L 8-78 [facility] Troponin I.cardiac [Mass/Vol] ng/mL Low 0.010-0.04 5 [facility] Laboratory - Hematology and Cell countsOrdered By: Ricky Singh on 04-12-2023 Erythrocyte distribution width (RBC) [Ratio] 13.9 % 12.2-15.8 [facility] Lymphocytes/100 WBC (Bld) 13 % Low 20-35 [facility] MCH (RBC) [Entitic mass] 28.8 pg 27.8-33.2 [facility] MCHC (RBC) [Mass/Vol] 33.5 g/dL 32.7-34.8 [facility] Platelet mean volume (Bld) [Entitic vol] 9.4 fL 7.6-10.6 [facility] - UrinalysisOrder ed By: Ricky Singh on 04-12-2023 Bacteria LM.HPF (Urine sed) [#/Area] 4 /[HPF] [facility] Leukocyte esterase Test strip Ql (U) Small (1+) Abnormal Negative [facility] Nitrite Ql (U) Positive Abnormal Negative [facility] Protein Ql (U) 30 (1+) mg/dL Abnormal Negative [facility] Monocytes Auto (Bld) [#/Vol] Ordered By: Ricky Singh on 04-12-2023 Monocytes (Bld) [#/Vol] 0.2 10'3/uL 0.2-0.8 [facility] Monocytes/100 WBC Auto (Bld) Ordered By: Ricky Singh on 04-12-2023 Monocytes/100 WBC (Bld) 5 % 4-12 [facility] Neutrophils/100 WBC Manual c nt (Bld)Ordered By: Ricky Singh on 04-12-2023 Neutrophils/100 WBC (Bld) 79 % High 41-72 [facility] No Panel InformationOrdered By: Ricky Singh on 04-12-2023 Absolute Neutrophil 3.6 10'3/uL 1.5-5.6 [facility] Lymphocytes # (Auto) 0.6 10'3/uL 0.5-3.5 [facility] Platelet Count 157 10'3/uL 122-359 [facility] Red Blood Count 3.64 10'6/uL Low 3.85-4.88 [facility] White Blood Count 4.6 10'3/uL 3.2-9.3 [facility] Occult blood ur QLOrdered By : Ricky Singh on 04-12-2023 Hemoglobin Ql (U) Trace-intact Abnormal Negative [facility] Serum or plasma bilirubin me asurement (mass/volume)Ordered By: Ricky Singh on 04-12-2023 Bilirubin [Mass/Vol] 0.7 mg/dL 0.0-1.0 [facility] Serum or plasma potassium me asurement (moles/volume)Ordered By: Ricky Singh on 04-12-2023 Potassium [Moles/Vol] 3.8 mmol/L 3.5-5.1 [facility] Serum total protein measurem ent (mass/volume)Ordered By: Ricky Singh on 04-12-2023 Protein [Mass/Vol] 6.7 g/dL 6.4-8.2 [facility] Specific gravity Test strip (U) [Rel density]Ordered By: Ricky Singh on 04-12-2023 Specific gravity (U) [Rel density] 1.020 1.005-1.03 0 [facility] Squamous epithelial cells de tection in urine sediment by light microscopyOrdered By: Ricky Singh on 04-12-2023 Epithelial cells.squamous LM Ql (Urine sed) 3-5 /lpf [facility] Thin prep Papanicolaou smear with manual screeningOrdered By: Ricky Singh on 04-12-2023 Thin prep Papanicolaou smear with manual screening 17 mg/dL 7-18 [facility] Thin prep Papanicolaou smear with manual screening 4.0 g/dL 3.2-4.6 [facility] Urine appearanceOrdered By: Ricky Singh on 04-12-2023 Appearance (U) Cloudy CLEAR [facility] Urine colorOrdered By: Dainn Singh on 04-12-2023 Color (U) Yellow YELLOW [facility] Urine culture routineOrdered By: Ricky Singh on 04-12-2023 Bacteria identified Cx Nom (U) Escherichia coli Abnormal [facility] Urine leukocyte count by sil roscopy (number/high power field)Ordered By: Ricky Singh on 04-12-2023 WBC Unsp time LM.HPF (Urine sed) [#/Vol] 21-50 /hpf [facility] Urine protein measurement by sulfosalicylic acid methodOrdered By: Ricky Singh on 04-12-2023 Protein SSA method Ql (U) 1+ Abnormal Negative [facility] Urine sediment erythrocyte c ount by microscopy (number/high power field)Ordered By: Ricky Singh on 04-12-2023 RBC LM.HPF (Urine sed) [#/Area] 0-2 /hpf [facility] Urine urobilinogen measureme ntOrdered By: Ricky Singh on 04-12-2023 Urobilinogen Ql (U) 1.0 EU/dL 0.2-1.0 [facility] Venous blood sodium measurem entOrdered By: Ricky Singh on 04-12-2023 Sodium (BldV) [Moles/Vol] 137 mmol/L 136-145 [facility] pH of UrineOrdered By: Diann Singh on 04-12-2023 pH (U) 6.0 [pH] 5.5-8.0 [facility] Histamine release from basop hils measurementOrdered By: Nathanael Brunner on 01-23-2023 Chloride [Moles/Vol] 102 mmol/L 98-107 [facility] Creatinine [Mass/Vol] 0.87 mg/dL 0.57-1.11 [facility] Histamine release from basophils measurement >60 mL/min/1.7 3m2 [facility] Laboratory - Chemistry and C hemistry - challengeOrdered By: Nathanael Brunner on 01-23-2023 Anion gap [Moles/Vol] 12 mmol/L - [facility] Calcium [Mass/Vol] 9.0 mg/dL 8.4-10.2 [facility] CO2 [Moles/Vol] 26 mmol/L [facility] Glucose [Mass/Vol] 67 mg/dL Low 70-100 [facility] Serum or plasma potassium me asurement (moles/volume)Ordered By: Nathanael Brunner on 01-23-2023 Potassium [Moles/Vol] 4.0 mmol/L 3.5-5.1 [facility] Thin prep Papanicolaou smear with manual screeningOrdered By: Nathanael Brunner on 01-23-2023 Thin prep Papanicolaou smear with manual screening 13 mg/dL - [facility] Venous blood sodium measurem entOrdered By: Nathanael Brunner on 01-23-2023 Sodium (BldV) [Moles/Vol] 140 mmol/L 136-145 [facility] Basophils Auto (Bld) [#/Vol] Ordered By: Nathanael Brunner on 12-21-2022 Basophils (Bld) [#/Vol] 0.1 10'3/uL 0.1-0.2 [facility] Basophils/100 WBC Auto (Bld) Ordered By: Nathanael Brunner on 12-21-2022 Basophils/100 WBC (Bld) 1 % 0-1 F [facility] Determination of erythrocyte mean corpuscular volume (MCV)Ordered By: Nathanael Brunner on 12-21-2022 MCV (RBC) [Entitic vol] 87.4 fL 83.0-97.4 F [facility] Eosinophils/100 WBC Auto (Bl d)Ordered By: Nathanael Brunner on 12-21-2022 Eosinophils/100 WBC (Bld) 1 % Low 2-5 [facility] Hemoglobin A1c percentageon 12-21-2022 HbA1c (Bld) [Mass fraction] 4.9 % 4.5-6.2 [facility] Histamine release from basop hils measurementOrdered By: Nathanael Brunner on 12-21-2022 Chloride [Moles/Vol] 104 mmol/L 98-107 [facility] Creatinine [Mass/Vol] 1.37 mg/dL High 0.57-1.11 [facility] Hemoglobin (Bld) [Mass/Vol] 12.4 g/dL 11.7-14.9 [facility] Histamine release from basophils measurement 0.1 10'3/uL 0.0-0.4 [facility] Histamine release from basophils measurement 40 Low mL/min/1.7 3m2 [facility] Iron measurement (mass/volum e)Ordered By: Nathanael Brunner on 12-21-2022 Iron (Unsp spec) [Mass/Vol] 53 ug/dL 50-170 [facility] Comment on above: Iron values may be f alsely elevated in serum samples from patients treated with anticoagulants (e.g. hemodialysis patients). Laboratory - Chemistry and C hemistry - challengeOrdered By: Nathanael Brunner on 12-21-2022 ALP [Catalytic activity/Vol] 59 U/L 40-150 [facility] ALT [Catalytic activity/Vol] 15 U/L 0-55 [facility] Anion gap [Moles/Vol] 10 mmol/L 5-13 [facility] AST [Catalytic activity/Vol] 21 U/L 5-34 [facility] Calcium [Mass/Vol] 9.3 mg/dL 8.4-10.2 [facility] CO2 [Moles/Vol] 24 mmol/L 23-31 [facility] Ferritin [Mass/Vol] 107.9 ng/mL 8-388 [facility] Glucose [Mass/Vol] 117 mg/dL High 70-100 [facility] Laboratory - Hematology and Cell countsOrdered By: Nathanael Brunner on 12-21-2022 Erythrocyte distribution width (RBC) [Ratio] 13.7 % 12.2-15.8 [facility] Lymphocytes/100 WBC (Bld) 17 % Low 20-35 [facility] MCH (RBC) [Entitic mass] 28.5 pg 27.8-33.2 [facility] MCHC (RBC) [Mass/Vol] 32.6 g/dL Low 32.7-34.8 [facility] Platelet mean volume (Bld) [Entitic vol] 10.2 fL 7.6-10.6 [facility] Monocytes Auto (Bld) [#/Vol] Ordered By: Nathanael Brunner on 12-21-2022 Monocytes (Bld) [#/Vol] 0.4 10'3/uL 0.2-0.8 [facility] Monocytes/100 WBC Auto (Bld) Ordered By: Nathanael Brunner on 12-21-2022 Monocytes/100 WBC (Bld) 6 % 4-12 [facility] Neutrophils/100 WBC Manual c nt (Bld)Ordered By: Nathanael Brunner on 12-21-2022 Neutrophils/100 WBC (Bld) 75 % High 41-72 [facility] No Panel InformationOrdered By: Nathanael Brunner on 12-21-2022 Absolute Neutrophil 5.4 10'3/uL 1.5-5.6 [facility] Lymphocytes # (Auto) 1.2 10'3/uL 0.5-3.5 [facility] Percent Iron Saturation 20 % 20-50 F [facility] Platelet Count 169 10'3/uL 122-359 [facility] Red Blood Count 4.35 10'6/uL 3.85-4.88 [facility] Total Iron Binding Capacity 269 ug/dL 250-450 [facility] White Blood Count 7.2 10'3/uL 3.2-9.3 [facility] Serum or plasma bilirubin me asurement (mass/volume)Ordered By: Nathanael Brunner on 12-21-2022 Bilirubin [Mass/Vol] 0.4 mg/dL 0.0-1.0 [facility] Serum or plasma potassium me asurement (moles/volume)Ordered By: Nathanael Brunner on 12-21-2022 Potassium [Moles/Vol] 4.6 mmol/L 3.5-5.1 [facility] Serum or plasma unsaturated iron binding capacity measurement (mass/volume)Ordered By: Nathanael Brunner on 12-21-2022 Iron binding capacity.unsaturated [Mass/Vol] 216 ug/dL 70-310 [facility] Serum total protein measurem ent (mass/volume)Ordered By: Nathanael Brunner on 12-21-2022 Protein [Mass/Vol] 7.0 g/dL 6.4-8.2 [facility] Thin prep Papanicolaou smear with manual screeningOrdered By: Nathanael Brunner on 12-21-2022 Thin prep Papanicolaou smear with manual screening 13 mg/dL -18 [facility] Thin prep Papanicolaou smear with manual screening 4.6 g/dL 3.2-4.6 [facility] Thin prep Papanicolaou smear with manual screening 2.548 uIU/mL 0.358-3.74 0 [facility] Venous blood sodium measurem entOrdered By: Nathanael Brunner on 12-21-2022 Sodium (BldV) [Moles/Vol] 138 mmol/L 136-145 [facility] Laboratory - Chemistry and C hemistry - challengeon 12-15-2022 Bilirubin Ql (U) Negative [facility] Glucose Ql (U) Negative [facility] Ketones Ql (U) Negative [facility] pH (U) 5.0 [pH] [facility] Specific gravity (U) [Rel density] 1.015 [facility] Urobilinogen (U) [Mass/Vol] 0.2 mg/dL [facility] Laboratory - Specimen inform ationon 12-15-2022 Appearance (U) clear [facility] Color (U) Light yellow [facility] Laboratory - Urinalysison Leukocyte esterase Test strip Ql (U) Negative [facility] Nitrite Ql (U) Negative [facility] Protein Ql (U) Trace [facility] No Panel Informationon 12-15 Urine Occult Blood Trace-nonhemolyzed [facility] Urine culture routineOrdered By: Allison Kitchen on 12-15-2022 Bacteria identified Cx Nom (U) Staphylococcus haemolyticus Abnormal [facility] Bacteria identified Cx Nom (U) Strep agalactiae - (group b) Abnormal [facility] Laboratory - Chemistry and C hemistry - challengeon 11-21-2022 Bilirubin Ql (U) Negative [facility] Glucose Ql (U) Negative [facility] Ketones Ql (U) Negative [facility] pH (U) 6.0 [pH] [facility] Specific gravity (U) [Rel density] 1.010 [facility] Urobilinogen (U) [Mass/Vol] 0.2 mg/dL [facility] Laboratory - Specimen inform ationon 11-21-2022 Appearance (U) clear [facility] Color (U) Light yellow [facility] Laboratory - Urinalysison Leukocyte esterase Test strip Ql (U) Negative [facility] Nitrite Ql (U) Negative [facility] Protein Ql (U) Trace [facility] No Panel Informationon 11-21 Urine Occult Blood Negative [facility] Urine culture routineOrdered By: Kristine Benedict on 11-21-2022 Bacteria identified Cx Nom (U) [facility] Laboratory - Chemistry and C hemistry - challengeon 09-16-2022 Bilirubin Ql (U) Negative [facility] Glucose Ql (U) Negative [facility] Ketones Ql (U) Negative [facility] pH (U) 5.0 [pH] [facility] Specific gravity (U) [Rel density] 1.015 [facility] Urobilinogen (U) [Mass/Vol] 0.2 mg/dL [facility] Laboratory - Specimen inform ationon 09-16-2022 Appearance (U) clear [facility] Color (U) Yellow [facility] Laboratory - Urinalysison Leukocyte esterase Test strip Ql (U) Negative [facility] Nitrite Ql (U) Negative [facility] Protein Ql (U) Trace [facility] No Panel Informationon 09-16 Urine Occult Blood Negative [facility] Hemoglobin A1c percentageon 08-26-2022 HbA1c (Bld) [Mass fraction] 5.2 % 4.5-6.2 [facility] Basophils Auto (Bld) [#/Vol] Ordered By: Olga Peterson on 08-24-2022 Basophils (Bld) [#/Vol] 0.0 10'3/uL Low 0.1-0.2 [facility] Basophils/100 WBC Auto (Bld) Ordered By: Olga Peterson on 08-24-2022 Basophils/100 WBC (Bld) 0 % 0-1 F [facility] Determination of erythrocyte mean corpuscular volume (MCV)Ordered By: Olga Peterson on 08-24-2022 MCV (RBC) [Entitic vol] 86.1 fL 83.0-97.4 F [facility] Eosinophils/100 WBC Auto (Bl d)Ordered By: Olga Peterson on 08-24-2022 Eosinophils/100 WBC (Bld) 0 % Low 2-5 [facility] Histamine release from basop hils measurementOrdered By: Olga Peterson on 08-24-2022 Glucose (U) [Mass/Vol] Negative Negative [facility] Chloride [Moles/Vol] 105 mmol/L 98-107 [facility] Creatinine [Mass/Vol] 0.84 mg/dL 0.57-1.11 [facility] Hemoglobin (Bld) [Mass/Vol] 10.5 g/dL Low 11.7-14.9 [facility] Histamine release from basophils measurement 0.0 10'3/uL 0.0-0.4 [facility] Histamine release from basophils measurement >60 mL/min/1.7 3m2 [facility] Laboratory - Chemistry and C hemistry - challengeOrdered By: Olga Peterson on 08-24-2022 Bilirubin Ql (U) Negative Negative [facility] Ketones Ql (U) Negative Negative [facility] ALP [Catalytic activity/Vol] 59 U/L 40-150 [facility] ALT [Catalytic activity/Vol] 18 U/L 0-55 [facility] Anion gap [Moles/Vol] 12 mmol/L 5-13 [facility] AST [Catalytic activity/Vol] 21 U/L 5-34 [facility] Calcium [Mass/Vol] 9.0 mg/dL 8.4-10.2 [facility] CO2 [Moles/Vol] 20 mmol/L Low 23-31 [facility] Glucose [Mass/Vol] 102 mg/dL High 70-100 [facility] Lipase [Catalytic activity/Vol] 23 U/L 8-78 [facility] Laboratory - Hematology and Cell countsOrdered By: Olga Peterson on 08-24-2022 Erythrocyte distribution width (RBC) [Ratio] 14.1 % 12.2-15.8 [facility] Lymphocytes/100 WBC (Bld) 12 % Low 20-35 [facility] MCH (RBC) [Entitic mass] 28.5 pg 27.8-33.2 [facility] MCHC (RBC) [Mass/Vol] 33.1 g/dL 32.7-34.8 [facility] Platelet mean volume (Bld) [Entitic vol] 9.5 fL 7.6-10.6 [facility] Laboratory - UrinalysisOrder ed By: Olga Peterson on 08-24-2022 Bacteria LM.HPF (Urine sed) [#/Area] 4 /[HPF] [facility] Leukocyte esterase Test strip Ql (U) Moderate (2+) Abnormal Negative [facility] Nitrite Ql (U) Positive Abnormal Negative [facility] Protein Ql (U) 30 (1+) mg/dL Abnormal Negative [facility] Monocytes Auto (Bld) [#/Vol] Ordered By: Olga Peterson on 08-24-2022 Monocytes (Bld) [#/Vol] 0.9 10'3/uL High 0.2-0.8 [facility] Monocytes/100 WBC Auto (Bld) Ordered By: Olga Peterson on 08-24-2022 Monocytes/100 WBC (Bld) 11 % 4-12 [facility] Neutrophils/100 WBC Manual c nt (Bld)Ordered By: Olga Peterson on 08-24-2022 Neutrophils/100 WBC (Bld) 78 % High 41-72 [facility] No Panel InformationOrdered By: Olga Peterson on 08-24-2022 Absolute Neutrophil 6.6 10'3/uL High 1.5-5.6 [facility] Lymphocytes # (Auto) 1.0 10'3/uL 0.5-3.5 [facility] Platelet Count 162 10'3/uL 122-359 [facility] Red Blood Count 3.68 10'6/uL Low 3.85-4.88 [facility] White Blood Count 8.5 10'3/uL 3.2-9.3 [facility] Occult blood ur QLOrdered By : Olga Peterson on 08-24-2022 Hemoglobin Ql (U) Trace-intact Abnormal Negative [facility] Serum or plasma bilirubin me asurement (mass/volume)Ordered By: Olga Peterson on 08-24-2022 Bilirubin [Mass/Vol] 0.8 mg/dL 0.0-1.0 [facility] Serum or plasma potassium me asurement (moles/volume)Ordered By: Olga Peterson on 08-24-2022 Potassium [Moles/Vol] 3.7 mmol/L 3.5-5.1 [facility] Serum total protein measurem ent (mass/volume)Ordered By: Olga Peterson on 08-24-2022 Protein [Mass/Vol] 6.7 g/dL 6.4-8.2 [facility] Specific gravity Test strip (U) [Rel density]Ordered By: Olga Peterson on 08-24-2022 Specific gravity (U) [Rel density] 1.010 1.005-1.03 0 [facility] Squamous epithelial cells de tection in urine sediment by light microscopyOrdered By: Olga Peterson on 08-24-2022 Epithelial cells.squamous LM Ql (Urine sed) 6-10 /lpf [facility] Thin prep Papanicolaou smear with manual screeningOrdered By: Olga Peterson on 08-24-2022 Thin prep Papanicolaou smear with manual screening 12 mg/dL 7-18 [facility] Thin prep Papanicolaou smear with manual screening 4.0 g/dL 3.2-4.6 [facility] Urine appearanceOrdered By: Olga Peterson on 08-24-2022 Appearance (U) Clear CLEAR [facility] Urine colorOrdered By: Olga Peterson on 08-24-2022 Color (U) Yellow YELLOW [facility] Urine culture routineOrdered By: Olga Peterson on 08-24-2022 Bacteria identified Cx Nom (U) Escherichia coli Abnormal [facility] Urine leukocyte count by sil roscopy (number/high power field)Ordered By: Olga Peterson on 08-24-2022 WBC Unsp time LM.HPF (Urine sed) [#/Vol] 11-20 /hpf [facility] Urine sediment erythrocyte c ount by microscopy (number/high power field)Ordered By: Olga Peterson on 08-24-2022 RBC LM.HPF (Urine sed) [#/Area] 0-2 /hpf [facility] Urine urobilinogen measureme ntOrdered By: Olga Peterson on 08-24-2022 Urobilinogen Ql (U) 1.0 EU/dL 0.2-1.0 [facility] Venous blood sodium measurem entOrdered By: Olga Peterson on 08-24-2022 Sodium (BldV) [Moles/Vol] 137 mmol/L 136-145 [facility] pH of UrineOrdered By: Olga Peterson on 08-24-2022 pH (U) 6.0 [pH] 5.5-8.0 [facility] Laboratory - Chemistry and C hemistry - challengeOrdered By: Nathanael Brunner on 08-13-2022 Free T4 [Mass/Vol] 0.75 ng/dL 0.59-1.17 [facility] Serum or plasma thyroid stim ulating hormone (TSH) measurement (units/volume)Ordered By: Nathanael Brunner on 08-13-2022 TSH Qn 1.922 uIU/mL 0.358-3.74 0 [facility] Histamine release from basop hils measurementOrdered By: Joy Wan on 07-16-2022 Chloride [Moles/Vol] 106 mmol/L 98-107 [facility] Creatinine [Mass/Vol] 0.79 mg/dL 0.57-1.11 [facility] Histamine release from basophils measurement >60 mL/min/1.7 3m2 [facility] Laboratory - Chemistry and C hemistry - challengeOrdered By: Joy Wan on 07-16-2022 ALP [Catalytic activity/Vol] 64 U/L 40-150 [facility] ALT [Catalytic activity/Vol] 21 U/L 0-55 [facility] Anion gap [Moles/Vol] 10 mmol/L 5-13 [facility] AST [Catalytic activity/Vol] 25 U/L 5-34 [facility] Calcium [Mass/Vol] 9.4 mg/dL 8.4-10.2 [facility] CO2 [Moles/Vol] 23 mmol/L 23-31 [facility] Glucose [Mass/Vol] 94 mg/dL 70-100 [facility] No Panel InformationOrdered By: Joy Wan on 07-16-2022 Parathyroid Hormone (Intact) 50 pg/mL 14-64 [facility] Comment on above: Interpretive Guide I ntact PTH CalciumNormal Parathyroid Normal NormalHypoparathyroidism Low or Low Normal LowHyperparathyroidism Primary Normal or High High Secondary High Normal or Low Tertiary High HighNon-Parathyroid Hypercalcemia Low or Low Normal HighFor additional information, please refer [email or web address](This link is being provided for informational/educational purposes only.)Test Performed by [employer] [facility],[employer] [facility],[address] [place] [address] [id number] Fuller M.D., Ph.D., Director of [phone], CLIA [id number] Vitamin D 25-Hydroxy 58.1 ng/mL 30.0-100.0 [facility] Serum or plasma bilirubin me asurement (mass/volume)Ordered By: Joy Wan on 07-16-2022 Bilirubin [Mass/Vol] 0.7 mg/dL 0.0-1.0 [facility] Serum or plasma potassium me asurement (moles/volume)Ordered By: Joy Wan on 07-16-2022 Potassium [Moles/Vol] 4.5 mmol/L 3.5-5.1 [facility] Serum total protein measurem ent (mass/volume)Ordered By: Joy Wan on 07-16-2022 Protein [Mass/Vol] 6.8 g/dL 6.4-8.2 [facility] Thin prep Papanicolaou smear with manual screeningOrdered By: Joy Wan on 07-16-2022 Thin prep Papanicolaou smear with manual screening 14 mg/dL 7-18 [facility] Thin prep Papanicolaou smear with manual screening 4.3 g/dL 3.2-4.6 [facility] Venous blood sodium measurem entOrdered By: Joy Wan on 07-16-2022 Sodium (BldV) [Moles/Vol] 139 mmol/L 136-145 [facility] Laboratory - Chemistry and C hemistry - challengeon 06-30-2022 Bilirubin Ql (U) Small [facility] Glucose Ql (U) Negative [facility] Ketones Ql (U) Trace [facility] pH (U) 6.5 [pH] [facility] Specific gravity (U) [Rel density] 1.025 [facility] Urobilinogen (U) [Mass/Vol] 1 mg/dL [facility] Laboratory - Specimen inform ationon 06-30-2022 Appearance (U) cloudy [facility] Color (U) Yellow [facility] Laboratory - Urinalysison Leukocyte esterase Test strip Ql (U) Moderate [facility] [facility] Nitrite Ql (U) Positive [facility] Protein Ql (U) +++ [facility] No Panel Informationon 06-30 Urine Occult Blood Large [facility] Urine culture routineOrdered By: Allison Kitchen on 06-30-2022 Bacteria identified Cx Nom (U) Escherichia coli Abnormal [facility] Bacteria identified Cx Nom (U) Strep agalactiae - (group b) Abnormal [facility] Bacteria identified Cx Nom (U) Escherichia coli Abnormal [facility] Bacteria identified Cx Nom (U) Strep agalactiae - (group b) Abnormal [facility] Laboratory - Chemistry and C hemistry - challengeOrdered By: Nathanael Brunner on 04-13-2022 Cobalamin (Vitamin B12) [Mass/Vol] 716 pg/mL 213-816 [facility] No Panel InformationOrdered By: Nathanael Brunner on 04-13-2022 Folate 18.0 ng/mL High 3.1-17.5 [facility] Laboratory - Chemistry and C hemistry - challengeOrdered By: Nathanael Brunner on 04-06-2022 Free T4 [Mass/Vol] 0.83 ng/dL 0.59-1.17 [facility] No Panel InformationOrdered By: Nathanael Brunner on 04-06-2022 Thyroid Stimulating Hormone (TSH) 3.731 uIU/mL 0.358-3.74 0 [facility] Urine culture routineOrdered By: Tisha Jenkins on 12-01-2021 Bacteria identified Cx Nom (U) [facility] Laboratory - Chemistry and C hemistry - challengeon 11-29-2021 Bilirubin Ql (U) Negative [facility] Glucose Ql (U) Negative [facility] Ketones Ql (U) Negative [facility] pH (U) 6.5 [pH] [facility] Specific gravity (U) [Rel density] 1.010 [facility] Urobilinogen (U) [Mass/Vol] 1 mg/dL [facility] Laboratory - Specimen inform ationon 11-29-2021 Appearance (U) clear [facility] Color (U) Yellow [facility] Laboratory - Urinalysison Leukocyte esterase Test strip Ql (U) Moderate [facility] Nitrite Ql (U) Negative [facility] Protein Ql (U) Trace [facility] No Panel Informationon 11-29 Urine Occult Blood Negative [facility] Basophils Auto (Bld) [#/Vol] Ordered By: Myrna Alvarenga on 11-19-2021 Basophils (Bld) [#/Vol] 0.0 10'3/uL Low 0.1-0.2 [facility] Basophils/100 WBC Auto (Bld) Ordered By: Myrna Alvarenga on 11-19-2021 Basophils/100 WBC (Bld) 1 % 0-1 [facility] Determination of erythrocyte mean corpuscular volume (MCV)Ordered By: Myrna Alvarenga on 11-19-2021 MCV (RBC) [Entitic vol] 85.8 fL 83.0-97.4 [facility] Eosinophils/100 WBC Auto (Bl d)Ordered By: Myrna Alvarenga on 11-19-2021 Eosinophils/100 WBC (Bld) 3 % 2-5 [facility] Histamine release from basop hils measurementOrdered By: Myrna Alvarenga on 11-19-2021 Bilirubin [Mass/Vol] 0.6 mg/dL 0.0-1.0 [facility] Chloride [Moles/Vol] 107 mmol/L 98-107 [facility] Cholesterol [Mass/Vol] 160 mg/dL <200 [facility] Creatinine [Mass/Vol] 0.92 mg/dL 0.57-1.11 [facility] Hemoglobin (Bld) [Mass/Vol] 12.4 g/dL 11.7-14.9 [facility] Histamine release from basophils measurement 0.2 10'3/uL 0.0-0.4 [facility] Histamine release from basophils measurement >60 mL/min/1.7 3m2 [facility] Potassium [Moles/Vol] 4.0 mmol/L 3.5-5.1 [facility] Protein [Mass/Vol] 6.7 g/dL 6.4-8.2 [facility] Sodium [Moles/Vol] 141 mmol/L 136-145 [facility] Triglyceride [Mass/Vol] 158 mg/dL High <150 [facility] Laboratory - Chemistry and C hemistry - challengeOrdered By: Myrna Alvarenga on 11-19-2021 ALP [Catalytic activity/Vol] 58 U/L 40-150 [facility] ALT [Catalytic activity/Vol] 20 U/L 0-55 [facility] Anion gap [Moles/Vol] 10 mmol/L 5-13 [facility] AST [Catalytic activity/Vol] 24 U/L 5-34 [facility] Calcium [Mass/Vol] 9.2 mg/dL 8.4-10.2 [facility] Cholesterol in HDL [Mass/Vol] 51 mg/dL 45-60 [facility] Cholesterol in LDL [Mass/Vol] 77 mg/dL <99 [facility] Cholesterol.total/Emeli sterol in HDL [Mass ratio] 3.137 {ratio} [facility] Comment on above: NATIONAL CHOLESTEROL GUIDELINES NATIONAL [...] on Cholesterol Ratio CHD RISK CHOL/HDL RATIO --- MALE FEMALE0.5 x Average 3.4 3.31.0 x Average 5.0 4.42.0 x Average 9.6 7.13.0 x Average 13.5 11.0 CO2 [Moles/Vol] 24 mmol/L 23-31 [facility] Free T4 [Mass/Vol] 0.80 ng/dL 0.59-1.17 [facility] Glucose [Mass/Vol] 109 mg/dL High 70-100 [facility] Laboratory - Hematology and Cell countsOrdered By: Myrna Alvarenga on 11-19-2021 Erythrocyte distribution width (RBC) [Ratio] 13.6 % 12.2-15.8 [facility] Lymphocytes/100 WBC (Bld) 25 % 20-35 [facility] MCH (RBC) [Entitic mass] 27.9 pg 27.8-33.2 [facility] MCHC (RBC) [Mass/Vol] 32.5 g/dL Low 32.7-34.8 [facility] Monocytes Auto (Bld) [#/Vol] Ordered By: Myrna Alvarenga on 11-19-2021 Monocytes (Bld) [#/Vol] 0.5 10'3/uL 0.2-0.8 [facility] Monocytes/100 WBC Auto (Bld) Ordered By: Myrna Alvarenga on 11-19-2021 Monocytes/100 WBC (Bld) 8 % 4-12 [facility] Neutrophils/100 WBC Manual c nt (Bld)Ordered By: Myrna Alvarenga on 11-19-2021 Neutrophils/100 WBC (Bld) 64 % 41-72 [facility] No Panel InformationOrdered By: Myrna Alvarenga on 11-19-2021 Absolute Neutrophil 4.3 10'3/uL 1.5-5.6 [facility] Lymphocytes # (Auto) 1.7 10'3/uL 0.5-3.5 [facility] Platelet Count 146 10'3/uL 122-359 [facility] Red Blood Count 4.44 10'6/uL 3.85-4.88 [facility] Thyroid Stimulating Hormone (TSH) 3.195 uIU/mL 0.358-3.74 0 [facility] VLDL Cholesterol 32 mg/dL 5-35 [facility] White Blood Count 6.7 10'3/uL 3.2-9.3 [facility] Thin prep Papanicolaou smear with manual screeningOrdered By: Myrna Alvarenga on 11-19-2021 Thin prep Papanicolaou smear with manual screening 9.2 fL 7.6-10.6 [facility] Thin prep Papanicolaou smear with manual screening 19 mg/dL High 7-18 [facility] Thin prep Papanicolaou smear with manual screening 4.3 g/dL 3.2-4.6 [facility] BASIC METABOLIC PROFILEon GFR/1.73 sq M.predicted MDRD (S/P/Bld) [Vol rate/Area] mL/min/{1.73_m2} Normal ml/min/1.7 3m2 [facility] Comment on above: Result Comment: GFR values >60 are not clinically significant. Performed By: #### C P1, BM #### [facility] CLIA # [id number] [address] [place] [address] Anion gap [Moles/Vol] 10 mmol/L Normal 5-13 [facility] Comment on above: Performed By: #### C P1, BM #### [facility] CLIA # [id number] [address] [place] [address] Calcium [Mass/Vol] 8.9 mg/dL Normal 8.4-10.2 [facility] Comment on above: Performed By: #### C P1, BM #### [facility] CLIA # [id number] [address] [place] [address] Chloride [Moles/Vol] 103 mmol/L Normal 98-107 [facility] Comment on above: Performed By: #### C P1, BM #### [facility] CLIA # [id number] [address] [place] [address] CO2 [Moles/Vol] 23 mmol/L Normal 23-31 [facility] Comment on above: Performed By: #### C P1, BM #### [facility] CLIA # [id number] [address] [place] [address] Creatinine [Mass/Vol] 0.72 mg/dL Normal 0.57-1.11 [facility] Comment on above: Performed By: #### C P1, BM #### [facility] CLIA # [id number] [address] [place] [address] Glucose [Mass/Vol] 94 mg/dL Normal 70-99 [facility] Comment on above: Performed By: #### C P1, BM #### [facility] CLIA # [id number] [address] [place] [address] Potassium [Moles/Vol] 4.0 mmol/L Normal 3.5-5.1 [facility] Comment on above: Performed By: #### C P1, BM #### [facility] CLIA # [id number] [address] [place] [address] Sodium [Moles/Vol] 136 mmol/L Normal 136-145 [facility] Comment on above: Performed By: #### C P1, BM #### [facility] CLIA # [id number] [address] [place] [address] Urea nitrogen [Mass/Vol] 10 mg/dL Normal 7-18 [facility] Comment on above: Performed By: #### C P1, BM #### [facility] CLIA # [id number] [address] [place] [address] COMPLETE BLOOD COUNT W/DIFFo n 08-02-2020 Basophils (Bld) [#/Vol] 0.1 10'3/uL Normal 0.1-0.2 [facility] Comment on above: Performed By: #### C M #### [facility] CLIA # [id number] [address] [facility] [place] [address] Basophils/100 WBC (Bld) 0.8 % Normal 0.0-1.7 [facility] Comment on above: Performed By: #### C M #### [facility] CLIA # [id number] [address] [place] [address] Eosinophils (Bld) [#/Vol] 0.2 10'3/uL Normal 0.0-0.4 [facility] Comment on above: Performed By: #### C M #### [facility] CLIA # [id number] [address] [place] [address] Eosinophils/100 WBC (Bld) 2.6 % Normal 0.0-6.4 [facility] Comment on above: Performed By: #### C M #### [facility] CLIA # [id number] [address] [place] [address] Erythrocyte distribution width (RBC) [Ratio] 12.7 % Normal 12.2-15.8 [facility] Comment on above: Performed By: #### C M #### [facility] CLIA # [id number] [address] [place] [address] Hematocrit (Bld) [Volume fraction] 35.2 % Normal 34.6-44.1 [facility] Comment on above: Performed By: #### C M #### [facility] CLIA # [id number] [address] [facility] [place] [address] Hemoglobin (Bld) [Mass/Vol] 11.9 g/dL Normal 11.7-14.9 [facility] Comment on above: Performed By: #### C M #### [facility] CLIA # [id number] [address] [facility] [place] [address] Lymphocytes (Bld) [#/Vol] 1.9 10'3/uL Normal 0.5-3.5 [facility] Comment on above: Performed By: #### C M #### [facility] CLIA # [id number] [address] [facility] [place] [address] Lymphocytes/100 WBC (Bld) 25.1 % Normal 17.4-45.9 [facility] Comment on above: Performed By: #### C M #### [facility] CLIA # [id number] [address] [facility] [place] [address] MCH (RBC) [Entitic mass] 33.8 g/dL Normal 32.7-34.8 [facility] Comment on above: Performed By: #### C M #### [facility] CLIA # [id number] [address] [facility] [place] [address] MCH (RBC) [Entitic mass] 28.4 pg Normal 27.8-33.2 [facility] Comment on above: Performed By: #### C M #### [facility] CLIA # [id number] [address] [place] [place] [address] MCV (RBC) [Entitic vol] 84.0 fL Normal 83.0-97.4 [facility] Comment on above: Performed By: #### C M #### [facility] CLIA # [id number] [address] [facility] [place] [address] Monocytes (Bld) [#/Vol] 0.5 10'3/uL Normal 0.2-0.8 [facility] Comment on above: Performed By: #### C M #### [facility] CLIA # [id number] [address] [place] [address] Monocytes/100 WBC (Bld) 6.6 % Normal 4.4-12.0 [facility] Comment on above: Performed By: #### C M #### [facility] CLIA # [id number] [address] [place] [address] Neutrophils (Bld) [#/Vol] 4.9 10'3/uL Normal 1.5-5.6 [facility] Comment on above: Performed By: #### C M #### [facility] CLIA # [id number] [address] [place] [place] [address] Neutrophils/100 WBC (Bld) 64.9 % Normal 41.2-72.1 [facility] Comment on above: Performed By: #### C M #### [facility] CLIA # [id number] [address] [place] [place] [address] Platelet mean volume (Bld) [Entitic vol] 9.1 fL Normal 7.6-10.6 [facility] Comment on above: Performed By: #### C M #### [facility] CLIA # [id number] [address] [place] [place] [address] Platelets (Bld) [#/Vol] 167 10'3/uL Normal 122-359 [facility] Comment on above: Performed By: #### C M #### [facility] CLIA # [id number] [address] [place] [address] RBC (Bld) [#/Vol] 4.19 10'6/uL Normal 3.85-4.88 [facility] Comment on above: Performed By: #### C M #### [facility] CLIA # [id number] [address] [place] [address] WBC (Bld) [#/Vol] 7.6 10'3/uL Normal 3.2-9.3 [facility] Comment on above: Performed By: #### C M #### [facility] CLIA # [id number] [address] [place] [address] ID NOW COVID-19on 08-02-2020 ID NOW COVID-19 [...] CoVID-19 Result: Presumptive Negative for CoVID-19 Normal [facility] PATHOLOGYon 07-05-[address] [place] # [id number] Name: SHERRY ASH Age/Sex: 74/F Attend Dr: MYRNA ALVARENGA D.O. Unit#: [id number] Status: REG CLI Location: [place] [address] Re07/05/20 Disch: : 1945 CLINICAL DIAGNOSIS Suspicious [...] Ebony Garcia on 07/09/2020 at 1053. Transcribed by:07/09/20 - 1103 [facility] CODES: LESION PROCEDURES: MIC3 (07/08/20) Signed (signature on file) Ebony Garcia M.D 07/09/20 1119 LABORATORY Normal [facility] Comment on above: Performed By: #### C P1, BM #### [facility] CLIA # [id number] [address] [place] [address] 3D BILAT SCREENING MAMMon 3D BILAT SCREENING MAMM [facility] Name: SHERRY ASH : 1945 Unit #: [id number] Age: 74 Attending Physician: MYRNA ALVARENGA D.O. Pt Location: RAD Date of Service: 07/03/20 3D BILAT SCREENING MAMM Digital mammography was performed with the Callvineia digital mammography system. Computer assisted diagnostics (CAD) was applied to all images using the R2 image pattern checker. HISTORY: Screening. Study: 3D bilateral screening [...] MIHIR MYERS M.D. Date Trans: 07/04/20 1227 [facility] [id number] cc: MYRNA ALVARENGA D.O. Normal [facility] 03-27-2020 [facility] Name: LIDIA ASHYN : 1945 Unit: [id number] Age: 74 Attending Physician: LION HURTADO M.D. [...] in the usual sterile fashion. The #21 Turkmen cystoscope sheath with a 30 degree lens [...] LION HURTADO M.D. Date trans: 03/27/20 1519 [facility] [id number] cc: LION HURTADO M.D., SHELLY K D.O. [facility] 03[facility] [facility] Name: SHERRY ASH : 1945 Unit: [id number] Age: 74 Attending Physician: LION HURTADO M.D. Pt Location: SURG Date of Service: REPORT OF OPERATION DATE OF PROCEDURE: 03/13/2020 PREOPERATIVE DIAGNOSIS: Bilateral ureteropelvic junction obstruction. POSTOPERATIVE DIAGNOSIS: Bilateral ureteropelvic junction obstruction. SURGEON: Fredi Hurtado M.D. ASSISTANTS: OPERATION: Cystoscopy. Bilateral retrograde pyelogram. Bilateral stent placement. ANESTHESIA: General. COMPLICATIONS: None. DRAINS: Bilateral #6 Turkmen 24 cm double J stents. SPECIMENS: None. [...] in the usual sterile fashion. The #21 Turkmen cystoscope sheath with a 30 degree lens [...] appeared otherwise normal. We used a #6 Turkmen open ended ureteral catheter first on the [...] under fluoroscopic visualization. We placed a #6 Turkmen 22 cm double J stent on that side. We then passed the guide wire up to the renal pelvis on the right side and again we placed a #6 Turkmen 22 cm double J stent. The stent [...] the renal pelvis. We placed a #6 Turkmen 24 cm double J stent. This stent did sit in excellent position. We then passed the guide wire up to the renal pelvis on the right side and again we passed a #6 Turkmen 24 cm double J stent. Again this [...] 1308 LION HURTADO M.D. Date trans: 03/13/20 1332 [facility] [id number] cc: LION HURTADO M.D., SHELLY K D.O. Normal [facility] URINE CULTUREon 03-13-2020 Bacteria identified Cx Nom (U) URINE CULTURE RESULT: INSIGNIFICANT GROWTH AT LESS THAN 10,000 CFU/ml Normal [facility] BASIC METABOLIC PROFILEon Anion gap [Moles/Vol] 9 mmol/L Normal 5-13 [facility] Comment on above: Performed By: #### C M #### [facility] CLIA # [id number] [address] [place] [address] Calcium [Mass/Vol] 9.1 mg/dL Normal 8.4-10.2 [facility] Comment on above: Performed By: #### C M #### [facility] CLIA # [id number] [address] [place] [address] Chloride [Moles/Vol] 102 mmol/L Normal 98-107 [facility] Comment on above: Performed By: #### C M #### [facility] CLIA # [id number] [address] [place] [address] CO2 [Moles/Vol] 27 mmol/L Normal 23-31 [facility] Comment on above: Performed By: #### C M #### [facility] CLIA # [id number] [address] [place] [address] Creatinine [Mass/Vol] 0.74 mg/dL Normal 0.57-1.11 [facility] Comment on above: Performed By: #### C M #### [facility] CLIA # [id number] [address] [place] [address] GFR/1.73 sq M.predicted MDRD (S/P/Bld) [Vol rate/Area] mL/min/{1.73_m2} Normal ml/min/1.7 3m2 [facility] Comment on above: Result Comment: GFR values >60 are not clinically significant. Performed By: #### C M #### [facility] CLIA # [id number] [address] [facility] [place] [address] Glucose [Mass/Vol] 84 mg/dL Normal 70-99 [facility] Comment on above: Performed By: #### C M #### [facility] CLIA # [id number] [address] [place] [place] [address] Potassium [Moles/Vol] 4.3 mmol/L Normal 3.5-5.1 [facility] Comment on above: Performed By: #### C M #### [facility] CLIA # [id number] [address] [facility] [place] [address] Sodium [Moles/Vol] 138 mmol/L Normal 136-145 [facility] Comment on above: Performed By: #### C M #### [facility] CLIA # [id number] [address] [facility] [place] [address] Urea nitrogen [Mass/Vol] 14 mg/dL Normal 7-18 [facility] Comment on above: Performed By: #### C M #### [facility] CLIA # [id number] [address] [place] [address] COMPLETE BLOOD COUNT W/DIFFo n 03-11-2020 Basophils (Bld) [#/Vol] 0.0 10'3/uL Low 0.1-0.2 [facility] Comment on above: Performed By: #### C M #### [facility] CLIA # [id number] [address] [place] [address] Basophils/100 WBC (Bld) 0.4 % Normal 0.0-1.7 [facility] Comment on above: Performed By: #### C M #### [facility] CLIA # [id number] [address] [facility] [place] [address] Eosinophils (Bld) [#/Vol] 0.1 10'3/uL Normal 0.0-0.4 [facility] Comment on above: Performed By: #### C M #### [facility] CLIA # [id number] [address] [place] [place] [address] Eosinophils/100 WBC (Bld) 1.0 % Normal 0.0-6.4 [facility] Comment on above: Performed By: #### C M #### [facility] CLIA # [id number] [address] [facility] [place] [address] Erythrocyte distribution width (RBC) [Ratio] 13.2 % Normal 12.2-15.8 [facility] Comment on above: Performed By: #### C M #### [facility] CLIA # [id number] [address] [facility] [place] [address] Hematocrit (Bld) [Volume fraction] 37.5 % Normal 34.6-44.1 [facility] Comment on above: Performed By: #### C M #### [facility] CLIA # [id number] [address] [facility] [place] [address] Hemoglobin (Bld) [Mass/Vol] 12.7 g/dL Normal 11.7-14.9 [facility] Comment on above: Performed By: #### C M #### [facility] CLIA # [id number] [address] [place] [place] [address] Lymphocytes (Bld) [#/Vol] 2.4 10'3/uL Normal 0.5-3.5 [facility] Comment on above: Performed By: #### C M #### [facility] CLIA # [id number] [address] [facility] [place] [address] Lymphocytes/100 WBC (Bld) 31.6 % Normal 17.4-45.9 [facility] Comment on above: Performed By: #### C M #### [facility] CLIA # [id number] [address] [place] [address] MCH (RBC) [Entitic mass] 33.9 g/dL Normal 32.7-34.8 [facility] Comment on above: Performed By: #### C M #### [facility] CLIA # [id number] [address] [place] [address] MCH (RBC) [Entitic mass] 29.6 pg Normal 27.8-33.2 [facility] Comment on above: Performed By: #### C M #### [facility] CLIA # [id number] [address] [facility] [place] [address] MCV (RBC) [Entitic vol] 87.4 fL Normal 83.0-97.4 [facility] Comment on above: Performed By: #### C M #### [facility] CLIA # [id number] [address] [facility] [place] [address] Monocytes (Bld) [#/Vol] 0.6 10'3/uL Normal 0.2-0.8 [facility] Comment on above: Performed By: #### C M #### [facility] CLIA # [id number] [address] [place] [address] Monocytes/100 WBC (Bld) 7.4 % Normal 4.4-12.0 [facility] Comment on above: Performed By: #### C M #### [facility] CLIA # [id number] [address] [facility] [place] [address] Neutrophils (Bld) [#/Vol] 4.6 10'3/uL Normal 1.5-5.6 [facility] Comment on above: Performed By: #### C M #### [facility] CLIA # [id number] [address] [place] [address] Neutrophils/100 WBC (Bld) 59.6 % Normal 41.2-72.1 [facility] Comment on above: Performed By: #### C M #### [facility] CLIA # [id number] [address] [place] [address] Platelet mean volume (Bld) [Entitic vol] 9.2 fL Normal 7.6-10.6 [facility] Comment on above: Performed By: #### C M #### [facility] CLIA # [id number] [address] [place] [address] Platelets (Bld) [#/Vol] 157 10'3/uL Normal 122-359 [facility] Comment on above: Performed By: #### C M #### [facility] CLIA # [id number] [address] [place] [place] [address] RBC (Bld) [#/Vol] 4.29 10'6/uL Normal 3.85-4.88 [facility] Comment on above: Performed By: #### C M #### [facility] CLIA # [id number] [address] [place] [address] WBC (Bld) [#/Vol] 7.7 10'3/uL Normal 3.2-9.3 [facility] Comment on above: Performed By: #### C M #### [facility] CLIA # [id number] [address] [place] [address] COVID TEST ([facility] )on 02-21-2020 COVID TEST ([facility]) COVID TEST ([facility]) Negative for COVID19 (SARS CoV2) by PCR This test was developed and its performance characteristics determined by [facility] [place]. This test has been authorized by FDA under an Emergency Use Authorization (EAU). This test has been validated in accordance with the FDA's Guidance Document Policy for Diagnostics Testing in Laboratories Certified to Perform High Complexity Testing under CLIA prior to Emergency Use Authorization for Coronavirus Disease 2019 during the Public Health Emergency issued on July 29, 2019. Test performed by: [facility], [address] [place] [id number] Iban Carroll III, M.D. Normal [facility] Comment on above: Order Comment: Has S pecimen Been Collected? YAntibiotics Taken/Given Before Culture Obtained: NReason for COVID Test Suspicion of COVID 19Implement Droplet PLUS Precautions (Y/N) Y BASIC METABOLIC PROFILEon GFR/1.73 sq M.predicted MDRD (S/P/Bld) [Vol rate/Area] mL/min/{1.73_m2} Normal ml/min/1.7 3m2 [facility] Comment on above: Result Comment: GFR values >60 are not clinically significant. Performed By: #### C P1, BM #### [facility] CLIA # [id number] [address] [place] [address] Anion gap [Moles/Vol] 11 mmol/L Normal 5-13 [facility] Comment on above: Performed By: #### C P1, BM #### [facility] CLIA # [id number] [address] [place] [address] Calcium [Mass/Vol] 9.7 mg/dL Normal 8.4-10.2 [facility] Comment on above: Performed By: #### C P1, BM #### [facility] CLIA # [id number] [address] [place] [address] Chloride [Moles/Vol] 103 mmol/L Normal 98-107 [facility] Comment on above: Performed By: #### C P1, BM #### [facility] CLIA # [id number] [address] [place] [address] CO2 [Moles/Vol] 25 mmol/L Normal 23-31 [facility] Comment on above: Performed By: #### C P1, BM #### [facility] CLIA # [id number] [address] [place] [address] Creatinine [Mass/Vol] 0.76 mg/dL Normal 0.57-1.11 [facility] Comment on above: Performed By: #### C P1, BM #### [facility] CLIA # [id number] [address] [place] [address] Glucose [Mass/Vol] 95 mg/dL Normal 70-99 [facility] Comment on above: Performed By: #### C P1, BM #### [facility] CLIA # [id number] [address] [place] [address] Potassium [Moles/Vol] 4.5 mmol/L Normal 3.5-5.1 [facility] Comment on above: Performed By: #### C P1, BM #### [facility] CLIA # [id number] [address] [place] [address] Sodium [Moles/Vol] 139 mmol/L Normal 136-145 [facility] Comment on above: Performed By: #### C P1, BM #### [facility] CLIA # [id number] [address] [place] [address] Urea nitrogen [Mass/Vol] 16 mg/dL Normal 7-18 [facility] Comment on above: Performed By: #### C P1, BM #### [facility] CLIA # [id number] [address] [place] [address] CARDIAC PROFILE #1on 020 Troponin I.cardiac [Mass/Vol] ng/mL Low 0.010-0.04 5 [facility] Comment on above: Performed By: #### C P1, BM #### [facility] CLIA # [id number] [address] [place] [address] CK.MB [Mass/Vol] 1.2 ng/mL Normal 1.0-3.6 [facility] Comment on above: Performed By: #### C P1, BM #### [facility] CLIA # [id number] [address] [place] [address] CREATINE PHOSPHOKINASE 32 U/L Normal 29-168 [facility] Comment on above: Performed By: #### C P1, BM #### [facility] CLIA # [id number] [address] [place] [address] CHEST - PORTABLEon 0 CHEST - PORTABLE [facility] Name: SHERRY ASH : 1945 Unit #: [id number] Age: 74 Attending Physician: Pt Location: ER [...] CHRIS BLOCK MD Date Trans: 02/19/20 1623 [facility] [id number] cc: MYRNA ALVARENGA D.O., JAY B MD- Normal [facility] COMPLETE BLOOD COUNT W/DIFFo n 02-19-2020 Basophils (Bld) [#/Vol] 0.0 10'3/uL Low 0.1-0.2 [facility] Comment on above: Performed By: #### C P1, BM #### [facility] CLIA # [id number] [address] [place] [address] Basophils/100 WBC (Bld) 0.4 % Normal 0.0-1.7 [facility] Comment on above: Performed By: #### C P1, BM #### [facility] CLIA # [id number] [address] [place] [address] Eosinophils (Bld) [#/Vol] 0.1 10'3/uL Normal 0.0-0.4 [facility] Comment on above: Performed By: #### C P1, BM #### [facility] CLIA # [id number] [address] [place] [address] Eosinophils/100 WBC (Bld) 0.7 % Normal 0.0-6.4 [facility] Comment on above: Performed By: #### C P1, BM #### [facility] CLIA # [id number] [address] [place] [address] Erythrocyte distribution width (RBC) [Ratio] 13.1 % Normal 12.2-15.8 [facility] Comment on above: Performed By: #### C P1, BM #### [facility] CLIA # [id number] [address] [facility] [place] [address] Hematocrit (Bld) [Volume fraction] 41.3 % Normal 34.6-44.1 [facility] Comment on above: Performed By: #### C P1, BM #### [facility] CLIA # [id number] [address] [facility] [place] [address] Hemoglobin (Bld) [Mass/Vol] 13.8 g/dL Normal 11.7-14.9 [facility] Comment on above: Performed By: #### C P1, BM #### [facility] CLIA # [id number] [address] [place] [address] Lymphocytes (Bld) [#/Vol] 1.3 10'3/uL Normal 0.5-3.5 [facility] Comment on above: Performed By: #### C P1, BM #### [facility] CLIA # [id number] [address] [place] [address] Lymphocytes/100 WBC (Bld) 18.6 % Normal 17.4-45.9 [facility] Comment on above: Performed By: #### C P1, BM #### [facility] CLIA # [id number] [address] [place] [place] [address] MCH (RBC) [Entitic mass] 33.4 g/dL Normal 32.7-34.8 [facility] Comment on above: Performed By: #### C P1, BM #### [facility] CLIA # [id number] [address] [place] [place] [address] MCH (RBC) [Entitic mass] 29.5 pg Normal 27.8-33.2 [facility] Comment on above: Performed By: #### C P1, BM #### [facility] CLIA # [id number] [address] [place] [address] MCV (RBC) [Entitic vol] 88.2 fL Normal 83.0-97.4 [facility] Comment on above: Performed By: #### C P1, BM #### [facility] CLIA # [id number] [address] [place] [address] Monocytes (Bld) [#/Vol] 0.4 10'3/uL Normal 0.2-0.8 [facility] Comment on above: Performed By: #### C P1, BM #### [facility] CLIA # [id number] [address] [place] [address] Monocytes/100 WBC (Bld) 5.6 % Normal 4.4-12.0 [facility] Comment on above: Performed By: #### C P1, BM #### [facility] CLIA # [id number] [address] [place] [address] Neutrophils (Bld) [#/Vol] 5.0 10'3/uL Normal 1.5-5.6 [facility] Comment on above: Performed By: #### C P1, BM #### [facility] CLIA # [id number] [address] [place] [address] Neutrophils/100 WBC (Bld) 74.7 % High 41.2-72.1 [facility] Comment on above: Performed By: #### C P1, BM #### [facility] CLIA # [id number] [address] [place] [address] Platelet mean volume (Bld) [Entitic vol] 9.8 fL Normal 7.6-10.6 [facility] Comment on above: Performed By: #### C P1, BM #### [facility] CLIA # [id number] [address] [place] [address] Platelets (Bld) [#/Vol] 164 10'3/uL Normal 122-359 [facility] Comment on above: Performed By: #### C P1, BM #### [facility] CLIA # [id number] [address] [place] [address] RBC (Bld) [#/Vol] 4.68 10'6/uL Normal 3.85-4.88 [facility] Comment on above: Performed By: #### C P1, BM #### [facility] CLIA # [id number] [address] [place] [address] WBC (Bld) [#/Vol] 6.8 10'3/uL Normal 3.2-9.3 [facility] Comment on above: Performed By: #### C P1, BM #### [facility] CLIA # [id number] [address] [place] [address] HISTORY PRESENT ILLNESSon HISTORY PRESENT ILLNESS Name: VIANEY ASH : 1945 Unit #: [id number] Age: 74 Family Physician: Pt Location: ER Arrival Date 02/19/20 - 1013 ER Physician: HUGH JULIAN MD-ER [facility] EMERGENCY ROOM History of Present Illness [...] Status 02/19/20 10:50 Nasopharyngeal Coronavirus COVID-19 PCR (ISL) Pending Received Abnormal Results Test 02/19/20 10:45 [...] Reviewed Scripts Pantoprazole Sodium (Protonix) 20 Mg Tablet. 1 TAB PO DAILY, #30 TAB Prov: HUGH JULIAN MD-ER 02/19/20 HGUH JULIAN MD-ER Feb 19, 2020 11:12 (Please note that portions of this note were completed with a voice recognition program. Efforts were made to edit the dictations but occasionally words are mis-transcribed.) Electronically Signed by: HUGH JULIAN MD 02/19/20 1220 HUGH JULIAN MD [phone] cc: Normal [facility] PARTIAL THROMBOPLASTIN TIMEo n 02-19-2020 aPTT Coag (Bld) [Time] 27.4 s Normal 24.49 -30.3 0 [facility] Comment on above: Result Comment: APTT THERAPEUTIC RANGE = 45.1-70.7 SECONDS Performed By: #### P T, PTT #### [facility] CLIA # [id number] [address] [place] [address] PROTHROMBIN TIME / INRon INR Coag (PPP) [Relative time] 0.93 {INR} Normal 0.86-1.15 [facility] Comment on above: Result Comment: ELIAN GUEVARA I.N.R. RANGES FOR ORAL ANTICOAGULANT THERAPY CONDITION RECOMMENDED I.N.R. DEEP VEIN THROMBOSIS.....................2.0 - 3.0 ACUTE MYOCARDIAL INFARCTION .............3.0 - 4.5 ATRIAL FIBRILLATION .....................2.0 - 3.0 CARDIAC VALVE REPLACEMENT (tissue).......2.0 - 3.0 CARDIAC VALVE REPLACEMENT (mechanical)...2.5 - 3.5 Performed By: #### P T, PTT #### [facility] CLIA # [id number] [address] [place] [address] PT Coag (PPP) [Time] 10.1 s Normal 9.54-10.90 [facility] Comment on above: Performed By: #### P T, PTT #### [facility] CLIA # [id number] [address] [place] [address] CT ABD/PEL ORAL CONTRAST ONL Yon 02-09-2020 CT ABD/PEL ORAL CONTRAST ONLY [facility] Name: SHERRY ASH : 1945 Unit #: [id number] Age: 74 Attending Physician: MYRNA ALVARENGA D.O. Pt Location: RAD-CT/NM Date of Service: 02/09/20 [...] 1147 MIHIR MYERS M.D. Date Dict: 02/09/20 1144 MIHIR MYERS M.D. Date Trans: 02/09/20 1144 [facility] [phone] cc: MYRNA ALVARENGA D.O. [facility] Addendum Name: SHERRY ASH : 1945 Unit #: [id number] Age: 74 Attending Physician: MYRNA ALVARENGA D.O. Pt Location: RAD-CT/IA Date of Service: 02/09/20 ADDENDUM: Technique should be as follows: TECHNIQUE: Axial images were obtained from the dome of the diaphragm down to the symphysis pubis. 900 ml barium sulfate was given orally. Coronal and sagittal reconstruction imaging was performed. Individualized dose optimization techniques were used for the CT scan. Electronically Signed by: MIHIR MYERS M.D. 02/09/20 1147 MIHIR MYERS M.D. Date Dict: 02/09/20 1144 MIHIR MYERS M.D. Date Trans: 02/09/20 1144 [facility] [phone] cc: MYRNA ALVARENGA D.O. Normal [facility] SINUS SERIES MIN 3 VIEWSon 0 02-08-2020 SINUS SERIES MIN 3 VIEWS [facility] Name: SHERRY ASH : 1945 Unit #: [id number] Age: 74 Attending Physician: MYRNA ALVARENGA D.O. Pt Location: [facility] Date of Service: 02/07/20 SINUS SERIES [...] COMMENTS Electronically Signed by: MIHIR MYERS M.D. 02/08/20 0836 MIHIR MYERS M.D. Date Dict: 02/08/20 0833 MIHIR MYERS M.D. Date Trans: 02/08/20 0833 [facility] [phone] cc: MYRNA ALVARENGA D.O. Normal [facility] T3 FREEon 01-18-2020 Free T3 [Mass/Vol] 2.5 pg/mL Normal 2.3-4.2 [facility] Comment on above: Result Comment: Test Performed by Greg Obrien, [facility], [address] [place], [place] Srikanth Fuller M.D., Ph.D., Director of Laboratories , CLIA [id number] Performed By: #### C P1, BM #### [facility] CLIA # [id number] [address] [place] [address] COMPLETE BLOOD COUNT W/DIFFo n 01-15-2020 Basophils (Bld) [#/Vol] 0.1 10'3/uL Normal 0.1-0.2 [facility] Comment on above: Performed By: #### C P1, BM #### [facility] CLIA # [id number] [address] [place] [address] Basophils/100 WBC (Bld) 0.6 % Normal 0.0-1.7 [facility] Comment on above: Performed By: #### C P1, BM #### [facility] CLIA # [id number] [address] [place] [address] Eosinophils (Bld) [#/Vol] 0.1 10'3/uL Normal 0.0-0.4 [facility] Comment on above: Performed By: #### C P1, BM #### [facility] CLIA # [id number] [address] [place] [address] Eosinophils/100 WBC (Bld) 1.1 % Normal 0.0-6.4 [facility] Comment on above: Performed By: #### C P1, BM #### [facility] CLIA # [id number] [address] [place] [address] Erythrocyte distribution width (RBC) [Ratio] 13.0 % Normal 12.2-15.8 [facility] Comment on above: Performed By: #### C P1, BM #### [facility] CLIA # [id number] [address] [facility] [place] [address] Hematocrit (Bld) [Volume fraction] 38.7 % Normal 34.6-44.1 [facility] Comment on above: Performed By: #### C P1, BM #### [facility] CLIA # [id number] [address] [place] [address] Hemoglobin (Bld) [Mass/Vol] 12.9 g/dL Normal 11.7-14.9 [facility] Comment on above: Performed By: #### C P1, BM #### [facility] CLIA # [id number] [address] [place] [address] Lymphocytes (Bld) [#/Vol] 1.5 10'3/uL Normal 0.5-3.5 [facility] Comment on above: Performed By: #### C P1, BM #### [facility] CLIA # [id number] [address] [place] [address] Lymphocytes/100 WBC (Bld) 18.0 % Normal 17.4-45.9 [facility] Comment on above: Performed By: #### C P1, BM #### [facility] CLIA # [id number] [address] [place] [place] [address] MCH (RBC) [Entitic mass] 29.1 pg Normal 27.8-33.2 [facility] Comment on above: Performed By: #### C P1, BM #### [facility] CLIA # [id number] [address] [place] [place] [address] MCH (RBC) [Entitic mass] 33.3 g/dL Normal 32.7-34.8 [facility] Comment on above: Performed By: #### C P1, BM #### [facility] CLIA # [id number] [address] [place] [address] MCV (RBC) [Entitic vol] 87.4 fL Normal 83.0-97.4 [facility] Comment on above: Performed By: #### C P1, BM #### [facility] CLIA # [id number] [address] [place] [address] Monocytes (Bld) [#/Vol] 0.5 10'3/uL Normal 0.2-0.8 [facility] Comment on above: Performed By: #### C P1, BM #### [facility] CLIA # [id number] [address] [place] [address] Monocytes/100 WBC (Bld) 5.9 % Normal 4.4-12.0 [facility] Comment on above: Performed By: #### C P1, BM #### [facility] CLIA # [id number] [address] [place] [address] Neutrophils (Bld) [#/Vol] 6.1 10'3/uL High 1.5-5.6 [facility] Comment on above: Performed By: #### C P1, BM #### [facility] CLIA # [id number] [address] [place] [address] Neutrophils/100 WBC (Bld) 74.4 % High 41.2-72.1 [facility] Comment on above: Performed By: #### C P1, BM #### [facility] CLIA # [id number] [address] [place] [address] Platelet mean volume (Bld) [Entitic vol] 9.8 fL Normal 7.6-10.6 [facility] Comment on above: Performed By: #### C P1, BM #### [facility] CLIA # [id number] [address] [place] [address] Platelets (Bld) [#/Vol] 215 10'3/uL Normal 122-359 [facility] Comment on above: Performed By: #### C P1, BM #### [facility] CLIA # [id number] [address] [facility] [place] [place] [address] RBC (Bld) [#/Vol] 4.43 10'6/uL Normal 3.85-4.88 [facility] Comment on above: Performed By: #### C P1, BM #### [facility] CLIA # [id number] [address] [place] [address] WBC (Bld) [#/Vol] 8.3 10'3/uL Normal 3.2-9.3 [facility] Comment on above: Performed By: #### C P1, BM #### [facility] CLIA # [id number] [address] [place] [address] COMPREHENSIVE METABOLIC PROF on 01-15-2020 GFR/1.73 sq M.predicted MDRD (S/P/Bld) [Vol rate/Area] mL/min/{1.73_m2} Normal ml/min/1.7 3m2 [facility] Comment on above: Result Comment: GFR values >60 are not clinically significant. Performed By: #### F T4, CM, TSH #### [facility] CLIA # [id number] [address] [place] [address] Albumin [Mass/Vol] 4.6 g/dL Normal 3.2-4.6 [facility] Comment on above: Performed By: #### F T4, CM, TSH #### [facility] CLIA # [id number] [address] [place] [address] ALP [Catalytic activity/Vol] 75 U/L Normal 40-150 [facility] Comment on above: Performed By: #### F T4, CM, TSH #### [facility] CLIA # [id number] [address] [place] [place] [address] ALT/SGPT 18 U/L Normal 0-55 [facility] Comment on above: Performed By: #### F T4, CM, TSH #### [facility] CLIA # [id number] [address] [place] [address] Anion gap [Moles/Vol] 8 mmol/L Normal 5-13 [facility] Comment on above: Performed By: #### F T4, CM, TSH #### [facility] CLIA # [id number] [address] [place] [address] AST/SGOT 20 U/L Normal 5-34 [facility] Comment on above: Performed By: #### F T4, CM, TSH #### [facility] CLIA # [id number] [address] [place] [address] Bilirubin [Mass/Vol] 0.5 mg/dL Normal 0.0-1.0 [facility] Comment on above: Performed By: #### F T4, CM, TSH #### [facility] CLIA # [id number] [address] [place] [address] Calcium [Mass/Vol] 9.5 mg/dL Normal 8.4-10.2 [facility] Comment on above: Performed By: #### F T4, CM, TSH #### [facility] CLIA # [id number] [address] [place] [address] Chloride [Moles/Vol] 101 mmol/L Normal 98-107 [facility] Comment on above: Performed By: #### F T4, CM, TSH #### [facility] CLIA # [id number] [address] [place] [address] CO2 [Moles/Vol] 26 mmol/L Normal 23-31 [facility] Comment on above: Performed By: #### F T4, CM, TSH #### [facility] CLIA # [id number] [address] [place] [address] Creatinine [Mass/Vol] 0.79 mg/dL Normal 0.57-1.11 [facility] Comment on above: Performed By: #### F T4, CM, TSH #### [facility] CLIA # [id number] [address] [place] [address] Glucose [Mass/Vol] 128 mg/dL High 70-99 [facility] Comment on above: Performed By: #### F T4, CM, TSH #### [facility] CLIA # [id number] [address] [place] [address] Potassium [Moles/Vol] 4.0 mmol/L Normal 3.5-5.1 [facility] Comment on above: Performed By: #### F T4, CM, TSH #### [facility] CLIA # [id number] [address] [place] [address] Protein [Mass/Vol] 7.2 g/dL Normal 6.4-8.2 [facility] Comment on above: Performed By: #### F T4, CM, TSH #### [facility] CLIA # [id number] [address] [place] [address] Sodium [Moles/Vol] 135 mmol/L Low 136-145 [facility] Comment on above: Performed By: #### F T4, CM, TSH #### [facility] CLIA # [id number] [address] [place] [address] Urea nitrogen [Mass/Vol] 17 mg/dL Normal 7-18 [facility] Comment on above: Performed By: #### F T4, CM, TSH #### [facility] CLIA # [id number] [address] [place] [address] FREE,T4on 01-15-2020 Free T4 [Mass/Vol] 0.98 ng/dL Normal 0.59-1.17 [facility] Comment on above: Performed By: #### F T4, CM, TSH #### [facility] CLIA # [id number] [address] [place] [address] TSH 3RD GENERATIONon 020 TSH 3RD GENERATION 2.722 uIU/mL Normal 0.358-3.74 [facility] Comment on above: Performed By: #### F T4, CM, TSH #### [facility] CLIA # [id number] [address] [place] [address] ENDORPTon 11-30-2019 ENDORPT [facility] Name: SHERRY ASH : 1945 Unit: [id number] Age: 73 Attending Physician: MELISSA LOPEZ M.D. Pt Location: [facility] Date of Service: ENDOSCOPY REPORT ESOPHAGOGASTRODUODENOSCOP Y REPORT PATIENT NAME: Sherry Ash (Null) : 1945 AGE: 73 SEX: F EXAM DATE: 11-30-2019 ATTENDING PHY: Melissa Lopez M.D. REFERRAL: MYRNA ALVARENGA ACCOUNT NO: [id number] TIME Start:9:39AM End: 9:44 AM ASST/NURSE : Jayda Whitten RN CONSENT : Informed consent was obtained from the patient after providing any opportunity for questions. PREPARATION : EKG pulse, blood pressure and oxygen saturation monitored. INSTRUMENT : G5 [id number] SN#: [id number] [employer] : Raleigh Hollins CRNA. ANESTHESIA : As [...] 1200 MELISSA LOPEZ M.D. Date trans: 11/30/[address] [place] [address] [phone] cc: MYRNA ALVARENGA D.O., BETH A M.D. Normal [facility] PATHOLOGYon 11-30-[address] [facility] # [id number] Name: SHERRY ASH Age/Sex: 73/F Attend Dr: MELISSA LOPEZ M.D. [facility]#: [id number] Unit#: [id number] Status: [facility] Location: ENDO Re11/30/19 Disch: : 1945 [...] 12/04/2019 at 1054. Transcribed by:12/04/19 - 1142 [facility] CODES: [id number] - ESOPHAGUS, BIOP COPIES TO: MYRNA ALVARENGA D.O. [address] [address] [address] CLIA # [id number] Name: SHERRY ASH Age/Sex: 73/F Attend Dr: MELISSA LOPEZ M.D. Unit#: [id number] Status: [facility] Location: ENDO Re11/30/19 Disch: : 1945 COPIES TO: (Continued) MELISSA LOPEZ M.D. [address] [place] [id number] PROCEDURES: MIC3 (11/30/19-2863) Signed (signature on file) Ebony Garcia M.D 12/04/19 1236 LABORATORY Normal [facility] Comment on above: Performed By: #### C P1, BM #### [facility] CLIA # [id number] [place] [address] BONE DENSITOMETRY SCAN - DEX Aon 11-27-2019 BONE DENSITOMETRY SCAN - DEXA [facility] Name: SHERRY ASH : 1945 Unit #: [id number] Age: 73 Attending Physician: JOY WAN Pt Location: [facility] Date of Service: 11/27/19 BONE DENSITOMETRY [...] 11/28/19 1228 MIHIR MYERS M.D. Date Dict: 11/27/199 MIHIR MYERS M.D. Date Trans: 11/27/199 [facility] [id number] cc: JOY WAN SHELLY K D.O. Normal [facility] COMPREHENSIVE METABOLIC PROF on 11-27-2019 GFR/1.73 sq M.predicted MDRD (S/P/Bld) [Vol rate/Area] mL/min/{1.73_m2} Normal ml/min/1.7 3m2 [facility] Comment on above: Result Comment: GFR values >60 are not clinically significant. Performed By: #### C M #### [facility] CLIA # [id number] [address] [place] [address] Albumin [Mass/Vol] 4.6 g/dL Normal 3.2-4.6 [facility] Comment on above: Performed By: #### C M #### [facility] CLIA # [id number] [address] [place] [address] ALP [Catalytic activity/Vol] 69 U/L Normal 40-150 [facility] Comment on above: Performed By: #### C M #### [facility] CLIA # [id number] [address] [place] [address] ALT/SGPT 22 U/L Normal 0-55 [facility] Comment on above: Performed By: #### C M #### [facility] CLIA # [id number] [address] [place] [address] Anion gap [Moles/Vol] 11 mmol/L Normal 5-13 [facility] Comment on above: Performed By: #### C M #### [facility] CLIA # [id number] [address] [place] [address] AST/SGOT 25 U/L Normal 5-34 [facility] Comment on above: Performed By: #### C M #### [facility] CLIA # [id number] [address] [place] [address] Bilirubin [Mass/Vol] 0.6 mg/dL Normal 0.0-1.0 [facility] Comment on above: Performed By: #### C M #### [facility] CLIA # [id number] [address] [place] [address] Calcium [Mass/Vol] 9.5 mg/dL Normal 8.4-10.2 [facility] Comment on above: Performed By: #### C M #### [facility] CLIA # [id number] [address] [place] [address] Chloride [Moles/Vol] 104 mmol/L Normal 98-107 [facility] Comment on above: Performed By: #### C M #### [facility] CLIA # [id number] [address] [place] [address] CO2 [Moles/Vol] 24 mmol/L Normal 23-31 [facility] [facility] Comment on above: Performed By: #### C M #### [facility] CLIA # [id number] [address] [place] [address] Creatinine [Mass/Vol] 0.90 mg/dL Normal 0.57-1.11 [facility] Comment on above: Performed By: #### C M #### [facility] CLIA # [id number] [address] [place] [address] Glucose [Mass/Vol] 116 mg/dL High 70-99 [facility] Comment on above: Performed By: #### C M #### [facility] CLIA # [id number] [address] [place] [address] Potassium [Moles/Vol] 4.4 mmol/L Normal 3.5-5.1 [facility] Comment on above: Performed By: #### C M #### [facility] CLIA # [id number] [address] [place] [address] Protein [Mass/Vol] 7.2 g/dL Normal 6.4-8.2 [facility] Comment on above: Performed By: #### C M #### [facility] CLIA # [id number] [address] [place] [address] Sodium [Moles/Vol] 139 mmol/L Normal 136-145 [facility] Comment on above: Performed By: #### C M #### [facility] CLIA # [id number] [address] [place] [address] Urea nitrogen [Mass/Vol] 18 mg/dL Normal 7-18 [facility] Comment on above: Performed By: #### C M #### [facility] CLIA # [id number] [address] [place] [address] VITAMIN D 25-OHon 11-27-2019 VITAMIN D 25-OH 52.2 ng/mL Normal 30-100 [facility] Comment on above: Performed By: #### V ITD #### [facility] CLIA # [id number] [address] [place] [address] LIPID PROFILEon 11-07-2019 Cholesterol [Mass/Vol] 186 mg/dL Normal <200 [facility] Comment on above: Performed By: #### L IPPRO #### [facility] CLIA # [id number] [address] [place] [address] Cholesterol in HDL [Mass/Vol] 53 mg/dL Normal 45-60 [facility] Comment on above: Performed By: #### L IPPRO #### [facility] CLIA # [id number] [phone] [place] [address] Cholesterol in LDL [Mass/Vol] 97 mg/dL Normal <100 [facility] Comment on above: Performed By: #### L IPPRO #### [facility] CLIA # [id number] [address] [place] [address] CHOLESTEROL RISK RATIO 3.51 Normal [facility] Comment on above: Result Comment: DETE RMINATION [...] heredity. Performed By: #### L IPPRO #### [facility] CLIA # [id number] [address] [place] [address] Triglyceride [Mass/Vol] 181 mg/dL High <150 [facility] Comment on above: Performed By: #### L IPPRO #### [facility] CLIA # [id number] [address] [place] [address] VERY LOW DENSITY LIPID 36 mg/dl High 5-35 [facility] Comment on above: Performed By: #### L IPPRO #### [facility] CLIA # [id number] [address] [place] [address] UPPER GI SERIES DOUBLE CONTR ASon 08-21-2019 UPPER GI SERIES DOUBLE CONTRAS [facility] Name: SHERRY ASH : 1945 Unit #: [id number] Age: 73 Attending Physician: MELISSA LOPEZ M.D., Pt Location: [facility] Date of Service: 08/21/19 UPPER GI [...] 1027 NEO LERNER M.D. Date Dict: 08/21/19 NEO RICHARD M.D. Date Trans: 08/21/19 [address] [id number] cc: MYRNA ALVARENGA D.O., BETH A M.D. [facility] Addendum Name: SHERRY ASH : 1945 Unit #: [id number] Age: 73 Attending Physician: MELISSA LOPEZ M.D. Pt Location: [facility] Date of Service: 08/21/19 ADDENDUM: Report should state that 4 grams of EZ-Gas and 340 grams of EZ-HD were given. Electronically Signed by: NEO LERNER M.D. 08/21/19 1027 NEO LERNER M.D. Date Dict: 08/21/19 1024 NEO LERNER M.D. Date Trans: 08/21/19 [address] [id number] cc: MYRNA ALVARENGA D.O., BETH A M.D. Normal [facility] Vital Signs Date Time Vital Sign Value Performing Clinician Faci lity 11-09-2024 14:21-0400 Diastolic blood pressure 72 mm[Hg] Nicole Barga DO Work Phone: [facility] 11-09-2024 14:21-0400 Systolic blood pressure 112 mm[Hg] Nicole Barga DO Work Phone: [facility] 11-09-2024 14:20-0400 Body height 157.48 cm Nicole Barga DO Work Phone: [facility] 11-09-2024 14:20-0400 Body mass index (BMI) [Ratio] 28 kg/m2 Nicole Barga DO Work Phone: [facility] 11-09-2024 14:20-0400 Body temperature 98.3 [degF] Nicole Barga DO Work Phone: [facility] 11-09-2024 14:20-0400 Body weight 69.45 kg Nicole Barga DO Work Phone: [facility] 11-09-2024 14:20-0400 Heart rate 62 /min Nicole Barga DO Work Phone: [facility] 11-09-2024 14:20-0400 Respiratory rate 18 /min Nicole Barga DO Work Phone: [facility] 11-09-2024 14:20-0400 SaO2% (BldA) [Mass fraction] 95 % Nicole Barga DO Work Phone: [facility] 10-24-2024 11:05-0400 Body temperature 97.8 [degF] Nicole Barga DO Work Phone: [facility] 10-24-2024 11:05-0400 Diastolic blood pressure 61 mm[Hg] Nicole Barga DO Work Phone: [facility] 10-24-2024 11:05-0400 Heart rate 69 /min Nicole Barga DO Work Phone: [facility] 10-24-2024 11:05-0400 Respiratory rate 16 /min Nicole Barga DO Work Phone: [facility] 10-24-2024 11:05-0400 SaO2% (BldA) [Mass fraction] 99 % Nicole Barga DO Work Phone: [facility] 10-24-2024 11:05-0400 Systolic blood pressure 110 mm[Hg] Nicole Barga DO Work Phone: [facility] 08-31-2024 14:18-0400 Diastolic blood pressure 74 mm[Hg] Nicole Barga DO Work Phone: [facility] 08-31-2024 14:18-0400 Systolic blood pressure 112 mm[Hg] Nicole Barga DO Work Phone: [facility] 08-31-2024 13:44-0400 Body height 157.48 cm Nicole Barga DO Work Phone: [facility] 08-31-2024 13:44-0400 Body mass index (BMI) [Ratio] 27.8 kg/m2 Nicole Barga DO Work Phone: [facility] 08-31-2024 13:44-0400 Body temperature 98.4 [degF] Nicole Barga DO Work Phone: [facility] 08-31-2024 13:44-0400 Body weight 68.94 kg Nicole Barga DO Work Phone: [facility] 08-31-2024 13:44-0400 Heart rate 68 /min Nicole Barga DO Work Phone: [facility] 08-09-2024 14:43-0400 Diastolic blood pressure 72 mm[Hg] Nicole Barga DO Work Phone: [facility] 08-09-2024 14:43-0400 Systolic blood pressure 112 mm[Hg] Nicole Barga DO Work Phone: [facility] 08-09-2024 14:40-0400 Body height 157.48 cm Nicole Barga DO Work Phone: [facility] 08-09-2024 14:40-0400 Body mass index (BMI) [Ratio] 27.8 kg/m2 Nicole Barga DO Work Phone: [facility] 08-09-2024 14:40-0400 Body temperature 98.7 [degF] Nicole Barga DO Work Phone: [facility] 08-09-2024 14:40-0400 Body weight 69.11 kg Nicole Barga DO Work Phone: [facility] 08-09-2024 14:40-0400 Heart rate 82 /min Nicole Barga DO Work Phone: [facility] 08-09-2024 14:40-0400 Respiratory rate 18 /min Nicole Barga DO Work Phone: [facility] 08-09-2024 14:40-0400 SaO2% (BldA) [Mass fraction] 96 % Nicole Barga DO Work Phone: [facility] 07-31-2024 12:02-0500 Diastolic blood pressure 72 mm[Hg] Nicole Barga DO Work Phone: [facility] 07-31-2024 12:02-0500 Systolic blood pressure 182 mm[Hg] Nicole Barga DO Work Phone: [facility] 07-31-2024 11:56-0500 Body height 177.8 cm Nicole Barga DO Work Phone: [facility] 07-31-2024 11:56-0500 Body mass index (BMI) [Ratio] 21.7 kg/m2 Nicole Barga DO Work Phone: [facility] 07-31-2024 11:56-0500 Body weight 68.6 kg Nicole Barga DO Work Phone: [facility] 07-31-2024 11:56-0500 Heart rate 77 /min Nicole Barga DO Work Phone: [facility] 07-12-2024 15:55-0500 Diastolic blood pressure 65 mm[Hg] Nicole Barga DO Work Phone: [facility] 07-12-2024 15:55-0500 Heart rate 82 /min Nicole Barga DO Work Phone: [facility] 07-12-2024 15:55-0500 Respiratory rate 20 /min Nicole Barga DO Work Phone: [facility] 07-12-2024 15:55-0500 SaO2% (BldA) [Mass fraction] 96 % Nicole Barga DO Work Phone: [facility] 07-12-2024 15:55-0500 Systolic blood pressure 111 mm[Hg] Nicole Barga DO Work Phone: [facility] 07-12-2024 13:15-0500 Body height 177.8 cm Nicole Barga DO Work Phone: [facility] 07-12-2024 13:15-0500 Body mass index (BMI) [Ratio] 21.8 kg/m2 Nicole Barga DO Work Phone: [facility] 07-12-2024 13:15-0500 Body temperature 98 [degF] Nicole Barga DO Work Phone: [facility] 07-12-2024 13:15-0500 Body weight 69.1 kg Nicole Barga DO Work Phone: [facility] 07-03-2024 11:21-0500 Diastolic blood pressure 62 mm[Hg] Nicole Barga DO Work Phone: [facility] 07-03-2024 11:21-0500 Systolic blood pressure 92 mm[Hg] Nicole Barga DO Work Phone: [facility] 07-03-2024 10:39-0500 Body height 157.48 cm Nicole Barga DO Work Phone: [facility] 07-03-2024 10:39-0500 Body mass index (BMI) [Ratio] 27.8 kg/m2 Nicole Barga DO Work Phone: [facility] 07-03-2024 10:39-0500 Body weight 68.94 kg Nicole Barga DO Work Phone: [facility] 07-03-2024 10:39-0500 Heart rate 78 /min Nicole Barga DO Work Phone: [facility] 07-03-2024 10:39-0500 SaO2% (BldA) [Mass fraction] 97 % Nicole Barga DO Work Phone: [facility] 06-12-2024 10:22-0500 Diastolic blood pressure 66 mm[Hg] Nicole Barga DO Work Phone: [facility] 06-12-2024 10:22-0500 Systolic blood pressure 90 mm[Hg] Nicole Barga DO Work Phone: [facility] 06-12-2024 10:19-0500 Body height 157.48 cm Nicole Barga DO Work Phone: [facility] 06-12-2024 10:19-0500 Body mass index (BMI) [Ratio] 28.1 kg/m2 Nicole Barga DO Work Phone: [facility] 06-12-2024 10:19-0500 Body temperature 98.6 [degF] Nicole Barga DO Work Phone: [facility] 06-12-2024 10:19-0500 Body weight 69.9 kg Nicole Barga DO Work Phone: [facility] 06-12-2024 10:19-0500 Heart rate 74 /min Nicole Barga DO Work Phone: [facility] 06-12-2024 10:19-0500 Respiratory rate 20 /min Nicole Barga DO Work Phone: [facility] 06-12-2024 10:19-0500 SaO2% (BldA) [Mass fraction] 97 % Nicole Barga DO Work Phone: [facility] 05-18-2024 10:54-0500 Diastolic blood pressure 72 mm[Hg] Nicole Barga DO Work Phone: [facility] 05-18-2024 10:54-0500 Systolic blood pressure 108 mm[Hg] Nicole Barga DO Work Phone: [facility] 05-18-2024 10:49-0500 Body height 157.48 cm Nicole Barga DO Work Phone: [facility] 05-18-2024 10:49-0500 Body mass index (BMI) [Ratio] 27.2 kg/m2 Nicole Barga DO Work Phone: [facility] 05-18-2024 10:49-0500 Body temperature 98.7 [degF] Nicole Barga DO Work Phone: [facility] 05-18-2024 10:49-0500 Body weight 67.64 kg Nicole Barga DO Work Phone: [facility] 05-18-2024 10:49-0500 Heart rate 83 /min Nicole Barga DO Work Phone: [facility] 05-18-2024 10:49-0500 Respiratory rate 18 /min Nicole Barga DO Work Phone: [facility] 05-18-2024 10:49-0500 SaO2% (BldA) [Mass fraction] 96 % Nicole Barga DO Work Phone: [facility] 04-21-2024 09:33-0500 Body temperature 98.4 [degF] Nicole Barga DO Work Phone: [facility] 04-21-2024 09:33-0500 Diastolic blood pressure 59 mm[Hg] Nicole Barga DO Work Phone: [facility] 04-21-2024 09:33-0500 Heart rate 91 /min Nicole Barga DO Work Phone: [facility] 04-21-2024 09:33-0500 Respiratory rate 18 /min Nicole Barga DO Work Phone: [facility] 04-21-2024 09:33-0500 SaO2% (BldA) [Mass fraction] 96 % Nicole Barga DO Work Phone: [facility] 04-21-2024 09:33-0500 Systolic blood pressure 106 mm[Hg] Nicole Barga DO Work Phone: [facility] 03-30-2024 08:04-0400 Diastolic blood pressure 68 mm[Hg] Nicole Barga DO Work Phone: [facility] 03-30-2024 08:04-0400 Systolic blood pressure 112 mm[Hg] Nicole Barga DO Work Phone: [facility] 03-30-2024 08:02-0400 Body height 157.48 cm Nicole Barga DO Work Phone: [facility] 03-30-2024 08:02-0400 Body mass index (BMI) [Ratio] 27.8 kg/m2 Nicole Barga DO Work Phone: [facility] 03-30-2024 08:02-0400 Body temperature 98.2 [degF] Nicole Barga DO Work Phone: [facility] 03-30-2024 08:02-0400 Body weight 69.17 kg Nicole Barga DO Work Phone: [facility] 03-30-2024 08:02-0400 Heart rate 58 /min Nicole Barga DO Work Phone: [facility] 03-30-2024 08:02-0400 Respiratory rate 18 /min Nicole Barga DO Work Phone: [facility] 03-30-2024 08:02-0400 SaO2% (BldA) [Mass fraction] 96 % Nicole Barga DO Work Phone: [facility] 03-27-2024 11:52-0400 Diastolic blood pressure 68 mm[Hg] Nicole Barga DO Work Phone: [facility] 03-27-2024 11:52-0400 Heart rate 72 /min Nicole Barga DO Work Phone: [facility] 03-27-2024 11:52-0400 Respiratory rate 18 /min Nicole Barga DO Work Phone: [facility] 03-27-2024 11:52-0400 Systolic blood pressure 107 mm[Hg] Nicole Barga DO Work Phone: [facility] 03-27-2024 08:45-0400 Body height 157.48 cm Nicole Barga DO Work Phone: [facility] 03-27-2024 08:45-0400 Body mass index (BMI) [Ratio] 28 kg/m2 Nicole Barga DO Work Phone: [facility] 03-27-2024 08:45-0400 Body temperature 97.6 [degF] Nicole Barga DO Work Phone: [facility] 03-27-2024 08:45-0400 Body weight 69.4 kg Nicole Barga DO Work Phone: [facility] 03-27-2024 08:45-0400 SaO2% (BldA) [Mass fraction] 97 % Nicole Barga DO Work Phone: [facility] 03-03-2024 17:49-0400 Body height 157.48 cm [facility] 03-03-2024 17:49-0400 Body mass index (BMI) [Ratio] 28.3 kg/m2 [facility] 03-03-2024 17:49-0400 Body temperature 97.5 [degF] [facility] 03-03-2024 17:49-0400 Body weight 70.36 kg [facility] 03-03-2024 17:49-0400 Diastolic blood pressure 66 mm[Hg] [facility] 03-03-2024 17:49-0400 Heart rate 76 /min [facility] 03-03-2024 17:49-0400 Respiratory rate 18 /min [facility] 03-03-2024 17:49-0400 SaO2% (BldA) [Mass fraction] 96 % [facility] 03-03-2024 17:49-0400 Systolic blood pressure 97 mm[Hg] [facility] 02-28-2024 10:18-0400 Diastolic blood pressure 66 mm[Hg] Nicole Barga DO Work Phone: [facility] 02-28-2024 10:18-0400 Systolic blood pressure 98 mm[Hg] Nicole Barga DO Work Phone: [facility] 02-28-2024 10:17-0400 Body height 157.48 cm Nicole Barga DO Work Phone: [facility] 02-28-2024 10:17-0400 Body mass index (BMI) [Ratio] 28.2 kg/m2 Nicole Barga DO Work Phone: [facility] 02-28-2024 10:17-0400 Body temperature 98.2 [degF] Nicole Barga DO Work Phone: [facility] 02-28-2024 10:17-0400 Body weight 70.08 kg Nicole Barga DO Work Phone: [facility] 02-28-2024 10:17-0400 Heart rate 79 /min Nicole Barga DO Work Phone: [facility] 02-17-2024 14:38-0400 Diastolic blood pressure 82 mm[Hg] Nicole Barga DO Work Phone: [facility] 02-17-2024 14:38-0400 Systolic blood pressure 118 mm[Hg] Nicole Barga DO Work Phone: [facility] 02-17-2024 14:36-0400 Body height 157.48 cm Nicole Barga DO Work Phone: [facility] 02-17-2024 14:36-0400 Body mass index (BMI) [Ratio] 28.1 kg/m2 Nicole Barga DO Work Phone: [facility] 02-17-2024 14:36-0400 Body temperature 98.4 [degF] Nicole Barga DO Work Phone: [facility] 02-17-2024 14:36-0400 Body weight 69.85 kg Nicole Barga DO Work Phone: [facility] 02-17-2024 14:36-0400 Heart rate 67 /min Nicole Barga DO Work Phone: [facility] 02-17-2024 14:36-0400 Respiratory rate 18 /min Nicole Barga DO Work Phone: [facility] 02-17-2024 14:36-0400 SaO2% (BldA) [Mass fraction] 95 % Nicole Barga DO Work Phone: [facility] 01-24-2024 14:34-0400 Diastolic blood pressure 78 mm[Hg] Nicole Barga DO Work Phone: [facility] 01-24-2024 14:34-0400 Systolic blood pressure 116 mm[Hg] Nicole Barga DO Work Phone: [facility] 01-24-2024 14:33-0400 Body height 157.48 cm Nicole Barga DO Work Phone: [facility] 01-24-2024 14:33-0400 Body mass index (BMI) [Ratio] 28 kg/m2 Nicole Barga DO Work Phone: [facility] 01-24-2024 14:33-0400 Body temperature 98.7 [degF] Nicole Barga DO Work Phone: [facility] 01-24-2024 14:33-0400 Body weight 69.45 kg Nicole Barga DO Work Phone: [facility] 01-24-2024 14:33-0400 Heart rate 64 /min Nicole Barga DO Work Phone: [facility] 01-24-2024 14:33-0400 Respiratory rate 18 /min Nicole Barga DO Work Phone: [facility] 01-24-2024 14:33-0400 SaO2% (BldA) [Mass fraction] 97 % Nicole Barga DO Work Phone: [facility] 01-16-2024 09:59-0400 Diastolic blood pressure 76 mm[Hg] Nicole Barga DO Work Phone: [facility] 01-16-2024 09:59-0400 Heart rate 76 /min Nicole Barga DO Work Phone: [facility] 01-16-2024 09:59-0400 Respiratory rate 16 /min Nicole Barga DO Work Phone: [facility] 01-16-2024 09:59-0400 SaO2% (BldA) [Mass fraction] 98 % Nicole Barga DO Work Phone: [facility] 01-16-2024 09:59-0400 Systolic blood pressure 110 mm[Hg] Nicole Barga DO Work Phone: [facility] 01-16-2024 07:37-0400 Body height 157.48 cm Nicole Barga DO Work Phone: [facility] 01-16-2024 07:37-0400 Body mass index (BMI) [Ratio] 27.8 kg/m2 Nicole Barga DO Work Phone: [facility] 01-16-2024 07:37-0400 Body temperature 98 [degF] Nicole Barga DO Work Phone: [facility] 01-16-2024 07:37-0400 Body weight 68.94 kg Nicole Barga DO Work Phone: [facility] 12-03-2023 11:54-0400 Diastolic blood pressure 60 mm[Hg] DO Nicole Barga Work Phone: [facility] 12-03-2023 11:54-0400 Systolic blood pressure 90 mm[Hg] DO Nicole Barga Work Phone: [facility] 12-03-2023 11:13-0400 Diastolic blood pressure 60 mm[Hg] DO Nicole Barga Work Phone: [facility] 12-03-2023 11:13-0400 Systolic blood pressure 90 mm[Hg] DO Nicole Barga Work Phone: [facility] 12-03-2023 11:07-0400 Body height 157.48 cm DO Nicole Barga Work Phone: [facility] 12-03-2023 11:07-0400 Body mass index (BMI) [Ratio] 27.4 kg/m2 DO Nicole Barga Work Phone: [facility] 12-03-2023 11:07-0400 Body temperature 98.4 [degF] DO Nicole Barga Work Phone: [facility] 12-03-2023 11:07-0400 Body weight 68.15 kg DO Nicole Barga Work Phone: [facility] 12-03-2023 11:07-0400 Heart rate 80 /min DO Nicole Barga Work Phone: [facility] 12-03-2023 11:07-0400 Respiratory rate 20 /min DO Nicole Barga Work Phone: [facility] 12-03-2023 11:07-0400 SaO2% (BldA) [Mass fraction] 94 % DO Nicole Barga Work Phone: [facility] 11-17-2023 14:56-0400 Diastolic blood pressure 68 mm[Hg] DO Nicole Barga Work Phone: [facility] 11-17-2023 14:56-0400 Systolic blood pressure 104 mm[Hg] DO Nicole Barga Work Phone: [facility] 11-17-2023 14:56-0400 Body height 157.48 cm DO Nicole Barga Work Phone: [facility] 11-17-2023 14:56-0400 Body mass index (BMI) [Ratio] 27.1 kg/m2 DO Nicole Barga Work Phone: [facility] 11-17-2023 14:56-0400 Body temperature 98.4 [degF] DO Nicole Barga Work Phone: [facility] 11-17-2023 14:56-0400 Body weight 67.35 kg DO Nicole Barga Work Phone: [facility] 11-17-2023 14:56-0400 Heart rate 70 /min DO Nicole Barga Work Phone: [facility] 11-17-2023 14:56-0400 Respiratory rate 18 /min DO Nicole Barga Work Phone: [facility] 11-17-2023 14:56-0400 SaO2% (BldA) [Mass fraction] 96 % DO Nicole Barga Work Phone: [facility] 10-14-2023 09:39-0400 Body temperature 98 [degF] DO Nicole Barga Work Phone: [facility] 10-14-2023 09:39-0400 Diastolic blood pressure 62 mm[Hg] DO Nicole Barga Work Phone: [facility] 10-14-2023 09:39-0400 Heart rate 69 /min DO Nicole Barga Work Phone: [facility] 10-14-2023 09:39-0400 Respiratory rate 18 /min DO Nicole Barga Work Phone: [facility] 10-14-2023 09:39-0400 SaO2% (BldA) [Mass fraction] 98 % DO Nicole Barga Work Phone: [facility] 10-14-2023 09:39-0400 Systolic blood pressure 114 mm[Hg] DO Nicole Barga Work Phone: [facility] 08-26-2023 11:30-0400 Diastolic blood pressure 62 mm[Hg] DO Nicole Barga Work Phone: [facility] 08-26-2023 11:30-0400 Systolic blood pressure 88 mm[Hg] DO Nicole Barga Work Phone: [facility] 08-26-2023 11:25-0400 Body height 157.48 cm DO Nicole Barga Work Phone: [facility] 08-26-2023 11:25-0400 Body mass index (BMI) [Ratio] 26.9 kg/m2 DO Nicole Barga Work Phone: [facility] 08-26-2023 11:25-0400 Body temperature 98.2 [degF] DO Nicole Barga Work Phone: [facility] 08-26-2023 11:25-0400 Body weight 66.67 kg DO Nicole Barga Work Phone: [facility] 08-26-2023 11:25-0400 Heart rate 72 /min DO Nicole Barga Work Phone: [facility] 08-16-2023 13:15-0400 Body height 157.5 cm Annabel Banks DO Work Phone: [facility] 08-16-2023 13:15-0400 Body weight 67.8 kg Annabel Banks DO Work Phone: [facility] 08-16-2023 13:15-0400 Diastolic blood pressure 58 mm[Hg] Annabel Banks DO Work Phone: [facility] 08-16-2023 13:15-0400 Heart rate 65 /min Annabel Salesbritninadine DO Work Phone: [facility] 08-16-2023 13:15-0400 Systolic blood pressure 117 mm[Hg] Annabel Banks DO Work Phone: [facility] 08-16-2023 13:08-0400 Body height 157.5 cm Mihir Awan DO Work Phone: [facility] 08-16-2023 13:08-0400 Body weight 67.8 kg Mihir Awan DO Work Phone: [facility] 08-16-2023 13:08-0400 Diastolic blood pressure 58 mm[Hg] Mihir Lynche DO Work Phone: [facility] 08-16-2023 13:08-0400 Heart rate 65 /min Mihir Awan DO Work Phone: [facility] 08-16-2023 13:08-0400 Systolic blood pressure 117 mm[Hg] Mihir Lynche DO Work Phone: [facility] 08-13-2023 14:45-0400 Diastolic blood pressure 74 mm[Hg] DO Nicole Barga Work Phone: [facility] 08-13-2023 14:45-0400 Systolic blood pressure 112 mm[Hg] DO Nicole Barga Work Phone: [facility] 08-13-2023 14:43-0400 Body height 157.48 cm DO Nicole Barga Work Phone: [facility] 08-13-2023 14:43-0400 Body mass index (BMI) [Ratio] 26.8 kg/m2 DO Nicole Barga Work Phone: [facility] 08-13-2023 14:43-0400 Body temperature 98.6 [degF] DO Nicole Barga Work Phone: [facility] 08-13-2023 14:43-0400 Body weight 66.45 kg DO Nicole Barga Work Phone: [facility] 08-13-2023 14:43-0400 Heart rate 68 /min DO Nicole Barga Work Phone: [facility] 08-13-2023 14:43-0400 Respiratory rate 18 /min DO Nicole Barga Work Phone: [facility] 08-13-2023 14:43-0400 SaO2% (BldA) [Mass fraction] 96 % DO Nicole Barga Work Phone: [facility] 08-03-2023 15:00-0500 Body temperature 98.6 [degF] DO Nicole Barga Work Phone: [facility] 08-03-2023 15:00-0500 Diastolic blood pressure 52 mm[Hg] DO Nicole Barga Work Phone: [facility] 08-03-2023 15:00-0500 Heart rate 71 /min DO Nicole Barga Work Phone: [facility] 08-03-2023 15:00-0500 Respiratory rate 18 /min DO Nicole Barga Work Phone: [facility] 08-03-2023 15:00-0500 SaO2% (BldA) [Mass fraction] 98 % DO Nicole Barga Work Phone: [facility] 08-03-2023 15:00-0500 Systolic blood pressure 94 mm[Hg] DO Nicole Barga Work Phone: [facility] 05-14-2023 13:29-0500 Diastolic blood pressure 70 mm[Hg] DO Nicole Barga Work Phone: [facility] 05-14-2023 13:29-0500 Systolic blood pressure 108 mm[Hg] DO Nicole Barga Work Phone: [facility] 05-14-2023 13:25-0500 Body height 157.48 cm DO Nicole Barga Work Phone: [facility] 05-14-2023 13:25-0500 Body mass index (BMI) [Ratio] 25.4 kg/m2 DO Nicole Barga Work Phone: [facility] 05-14-2023 13:25-0500 Body temperature 98.6 [degF] DO Nicole Barga Work Phone: [facility] 05-14-2023 13:25-0500 Body weight 63.27 kg DO Nicole Barga Work Phone: [facility] 05-14-2023 13:25-0500 Heart rate 87 /min DO Nicole Barga Work Phone: [facility] 05-14-2023 13:25-0500 Respiratory rate 18 /min DO Nicole Barga Work Phone: [facility] 05-14-2023 13:25-0500 SaO2% (BldA) [Mass fraction] 95 % DO Nicole Barga Work Phone: [facility] 04-12-2023 09:30-0500 SaO2% (BldA) [Mass fraction] 94 % DO Nicole Barga Work Phone: [facility] 04-12-2023 09:20-0500 Body height 157.48 cm DO Nicole Barga Work Phone: [facility] 04-12-2023 09:20-0500 Body mass index (BMI) [Ratio] 26.4 kg/m2 DO Nicole Barga Work Phone: [facility] 04-12-2023 09:20-0500 Body temperature 98.1 [degF] DO Nicole Barga Work Phone: [facility] 04-12-2023 09:20-0500 Body weight 65.5 kg DO Nicole Barga Work Phone: [facility] 04-12-2023 09:20-0500 Diastolic blood pressure 55 mm[Hg] DO Nicole Barga Work Phone: [facility] 04-12-2023 09:20-0500 Heart rate 72 /min DO Nicole Barga Work Phone: [facility] 04-12-2023 09:20-0500 Respiratory rate 16 /min DO Nicole Barga Work Phone: [facility] 04-12-2023 09:20-0500 Systolic blood pressure 91 mm[Hg] DO Nicole Barga Work Phone: [facility] 02-23-2023 15:25-0400 Body height 157.48 cm DO Nicole Barga Work Phone: [facility] 02-23-2023 15:25-0400 Body mass index (BMI) [Ratio] 26.5 kg/m2 DO Nicole Barga Work Phone: [facility] 02-23-2023 15:25-0400 Body weight 65.77 kg DO Nicole Barga Work Phone: [facility] 02-12-2023 12:48-0400 Diastolic blood pressure 68 mm[Hg] DO Nathanael Brunner Work Phone: [facility] 02-12-2023 12:48-0400 Systolic blood pressure 102 mm[Hg] DO Nathanael Brunner Work Phone: [facility] 02-12-2023 12:36-0400 Body height 157.48 cm DO Nathanael Brunner Work Phone: [facility] 02-12-2023 12:36-0400 Body mass index (BMI) [Ratio] 25.9 kg/m2 DO Nathanael Brunner Work Phone: [facility] 02-12-2023 12:36-0400 Body temperature 97.8 [degF] DO Nathanael Brunner Work Phone: [facility] 02-12-2023 12:36-0400 Body weight 64.29 kg DO Nathanael Brunner Work Phone: [facility] 02-12-2023 12:36-0400 Heart rate 70 /min DO Nathanael Brunner Work Phone: [facility] 02-12-2023 12:36-0400 Respiratory rate 16 /min DO Nathanael Brunner Work Phone: [facility] 02-12-2023 12:36-0400 SaO2% (BldA) [Mass fraction] 96 % DO Nathanael Brunner Work Phone: [facility] 01-21-2023 14:59-0400 Diastolic blood pressure 56 mm[Hg] DO Nathanael Brunner Work Phone: [facility] 01-21-2023 14:59-0400 Systolic blood pressure 104 mm[Hg] DO Nathanael Brunner Work Phone: [facility] 01-21-2023 14:57-0400 Body height 157.48 cm DO Nathanael Brunner Work Phone: [facility] 01-21-2023 14:57-0400 Body mass index (BMI) [Ratio] 25.6 kg/m2 DO Nathanael Brunner Work Phone: [facility] 01-21-2023 14:57-0400 Body weight 63.5 kg DO Nathanael Brunner Work Phone: [facility] 01-21-2023 14:57-0400 Heart rate 68 /min DO Nathanael Brunner Work Phone: [facility] 01-21-2023 14:57-0400 Respiratory rate 18 /min DO Nathanael Brunner Work Phone: [facility] 01-21-2023 14:57-0400 SaO2% (BldA) [Mass fraction] 95 % DO Nathanael Brunner Work Phone: [facility] 12-24-2022 11:15-0400 Diastolic blood pressure 53 mm[Hg] DO Nathanael Brunner Work Phone: [facility] 12-24-2022 11:15-0400 Systolic blood pressure 89 mm[Hg] DO Nathanael Brunner Work Phone: [facility] 12-24-2022 11:11-0400 Body height 157.48 cm DO Nathanael Brunner Work Phone: [facility] 12-24-2022 11:11-0400 Body mass index (BMI) [Ratio] 26.5 kg/m2 DO Nathanael Brunner Work Phone: [facility] 12-24-2022 11:11-0400 Body weight 65.9 kg DO Nathanael Brunner Work Phone: [facility] 12-24-2022 11:11-0400 Heart rate 69 /min DO Nathanael Brunner Work Phone: [facility] 12-21-2022 14:09-0400 Diastolic blood pressure 62 mm[Hg] DO Nathanael Brunner Work Phone: [facility] 12-21-2022 14:09-0400 Systolic blood pressure 102 mm[Hg] DO Nathanael Brunner Work Phone: [facility] 12-21-2022 13:54-0400 Body height 157.48 cm DO Nathanael Brunner Work Phone: [facility] 12-21-2022 13:54-0400 Body mass index (BMI) [Ratio] 26.6 kg/m2 DO Nathanael Brunner Work Phone: [facility] 12-21-2022 13:54-0400 Body temperature 98.2 [degF] DO Nathanael Brunner Work Phone: [facility] 12-21-2022 13:54-0400 Body weight 65.99 kg DO Nathanael Brunner Work Phone: [facility] 12-21-2022 13:54-0400 Heart rate 73 /min DO Nathanael Brunner Work Phone: [facility] 12-21-2022 13:54-0400 Respiratory rate 16 /min DO Nathanael Brunner Work Phone: [facility] 12-21-2022 13:54-0400 SaO2% (BldA) [Mass fraction] 94 % DO Nathanael Brunner Work Phone: [facility] 12-15-2022 15:50-0400 Body height 157.48 cm DO Nathanael Brunner Work Phone: [facility] 12-15-2022 15:50-0400 Body mass index (BMI) [Ratio] 26.9 kg/m2 DO Nathanael Brunner Work Phone: [facility] 12-15-2022 15:50-0400 Body temperature 98.2 [degF] DO Nathanael Brunner Work Phone: [facility] 12-15-2022 15:50-0400 Body weight 66.67 kg DO Nathanael Brunner Work Phone: [facility] 12-15-2022 15:50-0400 Diastolic blood pressure 60 mm[Hg] DO Nathanael Brunner Work Phone: [facility] 12-15-2022 15:50-0400 Heart rate 70 /min DO Nathanael Brunner Work Phone: [facility] 12-15-2022 15:50-0400 Respiratory rate 18 /min DO Nathanael Brunner Work Phone: [facility] 12-15-2022 15:50-0400 SaO2% (BldA) [Mass fraction] 97 % DO Nathanael Brunner Work Phone: [facility] 12-15-2022 15:50-0400 Systolic blood pressure 108 mm[Hg] DO Nathanael Brunner Work Phone: [facility] 11-21-2022 14:45-0400 Body temperature 97.8 [degF] DO Nathanael Brunner Work Phone: [facility] 11-21-2022 14:45-0400 Diastolic blood pressure 62 mm[Hg] DO Nathanael Brunner Work Phone: [facility] 11-21-2022 14:45-0400 Heart rate 63 /min DO Nathanael Brunner Work Phone: [facility] 11-21-2022 14:45-0400 Respiratory rate 18 /min DO Nathanael Brunner Work Phone: [facility] 11-21-2022 14:45-0400 SaO2% (BldA) [Mass fraction] 98 % DO Nathanael Brunner Work Phone: [facility] 11-21-2022 14:45-0400 Systolic blood pressure 154 mm[Hg] DO Nathanael Brunner Work Phone: [facility] 10-01-2022 12:02-0400 Body temperature 97.7 [degF] DO Nathanael Brunner Work Phone: [facility] 10-01-2022 12:02-0400 Diastolic blood pressure 55 mm[Hg] DO Nathanael Brunner Work Phone: [facility] 10-01-2022 12:02-0400 Heart rate 68 /min DO Nathanael Brunner Work Phone: [facility] 10-01-2022 12:02-0400 Respiratory rate 18 /min DO Nathanael Brunner Work Phone: [facility] 10-01-2022 12:02-0400 SaO2% (BldA) [Mass fraction] 97 % DO Nathanael Brunner Work Phone: [facility] 10-01-2022 12:02-0400 Systolic blood pressure 108 mm[Hg] DO Nathanael Brunner Work Phone: [facility] 09-16-2022 14:36-0400 Body height 157.48 cm DO Nathanael Brunner Work Phone: [facility] 09-16-2022 14:36-0400 Body mass index (BMI) [Ratio] 25.9 kg/m2 DO Nathanael Brunner Work Phone: [facility] 09-16-2022 14:36-0400 Body weight 64.41 kg DO Nathnaael Brunner Work Phone: [facility] 09-16-2022 14:36-0400 Diastolic blood pressure 74 mm[Hg] DO Nathanael Brunner Work Phone: [facility] 09-16-2022 14:36-0400 Heart rate 73 /min DO Nathanael Brunner Work Phone: [facility] 09-16-2022 14:36-0400 Respiratory rate 16 /min DO Nathanael Brunner Work Phone: [facility] 09-16-2022 14:36-0400 SaO2% (BldA) [Mass fraction] 96 % DO Nathanael Brunner Work Phone: [facility] 09-16-2022 14:36-0400 Systolic blood pressure 100 mm[Hg] DO Nathanael Brunner Work Phone: [facility] 08-28-2022 14:59-0400 Body weight 63.67 kg DO Nathanael Brunner Work Phone: [facility] 08-26-2022 13:08-0400 Body height 157.48 cm DO Nathanael Brunner Work Phone: [facility] 08-26-2022 13:08-0400 Body mass index (BMI) [Ratio] 25.7 kg/m2 DO Nathanael Brunner Work Phone: [facility] 08-26-2022 13:08-0400 Body weight 63.95 kg DO Nathanael Brunner Work Phone: [facility] 08-26-2022 13:08-0400 Diastolic blood pressure 52 mm[Hg] DO Nathanael Brunner Work Phone: [facility] 08-26-2022 13:08-0400 Heart rate 58 /min DO Nathanael Brunner Work Phone: [facility] 08-26-2022 13:08-0400 Respiratory rate 18 /min DO Nathanael Brunner Work Phone: [facility] 08-26-2022 13:08-0400 SaO2% (BldA) [Mass fraction] 98 % DO Nathanael Brunner Work Phone: [facility] 08-26-2022 13:08-0400 Systolic blood pressure 110 mm[Hg] DO Nathanael Brunner Work Phone: [facility] 08-24-2022 13:53-0400 Body height 157.48 cm DO Nathanael Brunner Work Phone: [facility] 08-24-2022 13:53-0400 Body mass index (BMI) [Ratio] 25.4 kg/m2 DO Nathanael Brunner Work Phone: [facility] 08-24-2022 13:53-0400 Body temperature 97.9 [degF] DO Nathanael Brunner Work Phone: [facility] 08-24-2022 13:53-0400 Body weight 63.04 kg DO Nathanael Brunner Work Phone: [facility] 08-24-2022 13:53-0400 Diastolic blood pressure 69 mm[Hg] DO Nathanael Brunner Work Phone: [facility] 08-24-2022 13:53-0400 Heart rate 73 /min DO Nathanael Brunner Work Phone: [facility] 08-24-2022 13:53-0400 Respiratory rate 18 /min DO Nathanael Brunner Work Phone: [facility] 08-24-2022 13:53-0400 SaO2% (BldA) [Mass fraction] 98 % DO Nathanael Brunner Work Phone: [facility] 08-24-2022 13:53-0400 Systolic blood pressure 163 mm[Hg] DO Nathanael Brunner Work Phone: [facility] 08-13-2022 14:32-0400 Body height 157.48 cm DO Nathanael Brunner Work Phone: [facility] 08-13-2022 14:32-0400 Body mass index (BMI) [Ratio] 26.3 kg/m2 DO Nathanael Brunner Work Phone: [facility] 08-13-2022 14:32-0400 Body weight 65.31 kg DO Nathanael Brunner Work Phone: [facility] 08-13-2022 14:32-0400 Diastolic blood pressure 60 mm[Hg] DO Nathanael Brunner Work Phone: [facility] 08-13-2022 14:32-0400 Heart rate 67 /min DO Nathanael Brunner Work Phone: [facility] 08-13-2022 14:32-0400 Respiratory rate 18 /min DO Nathanael Brunner Work Phone: [facility] 08-13-2022 14:32-0400 SaO2% (BldA) [Mass fraction] 96 % DO Nathanael Brunner Work Phone: [facility] 08-13-2022 14:32-0400 Systolic blood pressure 112 mm[Hg] DO Nathanael Brunner Work Phone: [facility] 07-30-2022 14:17-0500 Body height 157.48 cm DO Nathanael Brunner Work Phone: [facility] 07-30-2022 14:17-0500 Body mass index (BMI) [Ratio] 26.6 kg/m2 DO Nathanael Brunner Work Phone: [facility] 07-30-2022 14:17-0500 Body weight 66.22 kg DO Nathanael Brunner Work Phone: [facility] 07-30-2022 14:17-0500 Diastolic blood pressure 66 mm[Hg] DO Nathanael Brunner Work Phone: [facility] 07-30-2022 14:17-0500 Heart rate 66 /min DO Nathanael Brunner Work Phone: [facility] 07-30-2022 14:17-0500 Respiratory rate 18 /min DO Nathanael Brunner Work Phone: [facility] 07-30-2022 14:17-0500 SaO2% (BldA) [Mass fraction] 97 % DO Nathanael Brunner Work Phone: [facility] 07-30-2022 14:17-0500 Systolic blood pressure 102 mm[Hg] DO Nathanael Brunner Work Phone: [facility] 07-16-2022 14:28-0500 Body height 157.48 cm DO Nathanael Brunner Work Phone: [facility] 07-16-2022 14:28-0500 Body mass index (BMI) [Ratio] 27.3 kg/m2 DO Nathanael Brunner Work Phone: [facility] 07-16-2022 14:28-0500 Body weight 67.75 kg DO Nathanael Brunner Work Phone: [facility] 06-30-2022 12:18-0500 Body height 157.48 cm DO Nathanael Brunner Work Phone: [facility] 06-30-2022 12:18-0500 Body mass index (BMI) [Ratio] 27.6 kg/m2 DO Nathanael Brunner Work Phone: [facility] 06-30-2022 12:18-0500 Body temperature 98.7 [degF] DO Nathanael Brunner Work Phone: [facility] 06-30-2022 12:18-0500 Body weight 68.54 kg DO Nathanael Brunner Work Phone: [facility] 06-30-2022 12:18-0500 Diastolic blood pressure 60 mm[Hg] DO Nathanael Brunner Work Phone: [facility] 06-30-2022 12:18-0500 Heart rate 78 /min DO Nathanael Brunner Work Phone: [facility] 06-30-2022 12:18-0500 Respiratory rate 18 /min DO Nathanael Brunner Work Phone: [facility] 06-30-2022 12:18-0500 SaO2% (BldA) [Mass fraction] 97 % DO Nathanael Brunner Work Phone: [facility] 06-30-2022 12:18-0500 Systolic blood pressure 100 mm[Hg] DO Nathanael Brunner Work Phone: [facility] 06-17-2022 11:03-0500 Body height 157.48 cm DO Nathanael Brunner Work Phone: [facility] 06-17-2022 11:03-0500 Body mass index (BMI) [Ratio] 27.4 kg/m2 DO Nathanael Brunner Work Phone: [facility] 06-17-2022 11:03-0500 Body temperature 97.7 [degF] DO Nathanael Brunner Work Phone: [facility] 06-17-2022 11:03-0500 Body weight 68.03 kg DO Nathanael Brunner Work Phone: [facility] 06-17-2022 11:03-0500 Diastolic blood pressure 58 mm[Hg] DO Nathanael Brunner Work Phone: [facility] 06-17-2022 11:03-0500 Heart rate 66 /min DO Nathanael Brunner Work Phone: [facility] 06-17-2022 11:03-0500 Respiratory rate 18 /min DO Nathanael Brunner Work Phone: [facility] 06-17-2022 11:03-0500 SaO2% (BldA) [Mass fraction] 96 % DO Nathanael Brunner Work Phone: [facility] 06-17-2022 11:03-0500 Systolic blood pressure 100 mm[Hg] DO Nathanael Brunner Work Phone: [facility] 06-11-2022 10:10-0500 Body height 157.48 cm DO Nathanael Brunner Work Phone: [facility] 06-11-2022 10:10-0500 Body mass index (BMI) [Ratio] 27.8 kg/m2 DO Nathanael Brunner Work Phone: [facility] 06-11-2022 10:10-0500 Body weight 69 kg DO Nathanael Brunner Work Phone: [facility] 06-11-2022 10:10-0500 Diastolic blood pressure 55 mm[Hg] DO Nathanael Brunner Work Phone: [facility] 06-11-2022 10:10-0500 Heart rate 63 /min DO Nathanael Brunner Work Phone: [facility] 06-11-2022 10:10-0500 Systolic blood pressure 98 mm[Hg] DO Nathanael Brunner Work Phone: [facility] 05-27-2022 17:51-0500 Body temperature 98 [degF] DO Nathanael Brunner Work Phone: [facility] 05-27-2022 17:51-0500 Diastolic blood pressure 60 mm[Hg] DO Nathanael Brunner Work Phone: [facility] 05-27-2022 17:51-0500 Heart rate 70 /min DO Nathanael Brunner Work Phone: [facility] 05-27-2022 17:51-0500 Respiratory rate 18 /min DO Nathanael Brunner Work Phone: [facility] 05-27-2022 17:51-0500 SaO2% (BldA) [Mass fraction] 96 % DO Nathanael Brunner Work Phone: [facility] 05-27-2022 17:51-0500 Systolic blood pressure 128 mm[Hg] DO Nathanael Brunner Work Phone: [facility] 04-29-2022 14:27-0500 Body height 157.48 cm DO Nathanael Brunner Work Phone: [facility] 04-29-2022 14:27-0500 Body mass index (BMI) [Ratio] 27.8 kg/m2 DO Nathanael Brunner Work Phone: [facility] 04-29-2022 14:27-0500 Body temperature 97.3 [degF] DO Nathanael Brunner Work Phone: [facility] 04-29-2022 14:27-0500 Body weight 68.94 kg DO Nathanael Brunner Work Phone: [facility] 04-29-2022 14:27-0500 Diastolic blood pressure 60 mm[Hg] DO Nathanael Brunner Work Phone: [facility] 04-29-2022 14:27-0500 Heart rate 62 /min DO Nathanael Brunner Work Phone: [facility] 04-29-2022 14:27-0500 Respiratory rate 22 /min DO Nathanael Brunner Work Phone: [facility] 04-29-2022 14:27-0500 SaO2% (BldA) [Mass fraction] 96 % DO Nathanael Brunner Work Phone: [facility] 04-29-2022 14:27-0500 Systolic blood pressure 100 mm[Hg] DO Nathanael Brunner Work Phone: [facility] 04-08-2022 13:54-0500 Body height 157.48 cm DO Nathanael Brunner Work Phone: [facility] 04-08-2022 13:54-0500 Body mass index (BMI) [Ratio] 27.4 kg/m2 DO Nathanael Brunner Work Phone: [facility] 04-08-2022 13:54-0500 Body temperature 97.8 [degF] DO Nathanael Brunner Work Phone: [facility] 04-08-2022 13:54-0500 Body weight 68.03 kg DO Nathanael Brunner Work Phone: [facility] 04-08-2022 13:54-0500 Diastolic blood pressure 58 mm[Hg] DO Nathanael Brunner Work Phone: [facility] 04-08-2022 13:54-0500 Heart rate 66 /min DO Nathanael Brunner Work Phone: [facility] 04-08-2022 13:54-0500 Respiratory rate 18 /min DO Nathanael Brunner Work Phone: [facility] 04-08-2022 13:54-0500 SaO2% (BldA) [Mass fraction] 97 % DO Nathanael Brunner Work Phone: [facility] 04-08-2022 13:54-0500 Systolic blood pressure 106 mm[Hg] DO Nathanael Brunner Work Phone: [facility] 02-26-2022 13:30-0400 Body height 157.48 cm DO Myrna Alvarenga Work Phone: [facility] 02-26-2022 13:30-0400 Body mass index (BMI) [Ratio] 28 kg/m2 DO Myrna Alvarenga Work Phone: [facility] 02-26-2022 13:30-0400 Body weight 69.51 kg DO Myrna Alvarenga Work Phone: [facility] 02-04-2022 13:51-0400 Body height 154.94 cm DO Myrna Alvarenga Work Phone: [facility] 02-04-2022 13:51-0400 Body mass index (BMI) [Ratio] 28.9 kg/m2 DO Myrna Alvarenga Work Phone: [facility] 02-04-2022 13:51-0400 Body temperature 98.7 [degF] DO Myrna Alvarenga Work Phone: [facility] 02-04-2022 13:51-0400 Body weight 69.39 kg DO Myrna Alvarenga Work Phone: [facility] 02-04-2022 13:51-0400 Diastolic blood pressure 58 mm[Hg] DO Myrna Alvarenga Work Phone: [facility] 02-04-2022 13:51-0400 Heart rate 69 /min DO Myrna Alvarenga Work Phone: [facility] 02-04-2022 13:51-0400 Respiratory rate 22 /min DO Myrna Alvarenga Work Phone: [facility] 02-04-2022 13:51-0400 SaO2% (BldA) [Mass fraction] 97 % DO Myrna Alvarenga Work Phone: [facility] 02-04-2022 13:51-0400 Systolic blood pressure 98 mm[Hg] DO Myrna Alvarenga Work Phone: [facility] 01-08-2022 13:09-0400 Body height 154.31 cm DO Myrna Alvarenga Work Phone: [facility] 01-08-2022 13:09-0400 Body mass index (BMI) [Ratio] 29.3 kg/m2 DO Myrna Alvarenga Work Phone: [facility] 01-08-2022 13:09-0400 Body temperature 97 [degF] DO Myrna Alvarenga Work Phone: [facility] 01-08-2022 13:09-0400 Body weight 69.85 kg DO Myrna Alvarenga Work Phone: [facility] 12-04-2021 11:29-0400 Body height 157.48 cm DO Myrna Alvarenga Work Phone: [facility] 12-04-2021 11:29-0400 Body mass index (BMI) [Ratio] 28.1 kg/m2 DO Myrna Alvarenga Work Phone: [facility] 12-04-2021 11:29-0400 Body weight 69.85 kg DO Myrna Alvarenga Work Phone: [facility] 12-04-2021 11:29-0400 Diastolic blood pressure 68 mm[Hg] DO Myrna Alvarenga Work Phone: [facility] 12-04-2021 11:29-0400 Heart rate 71 /min DO Myrna Alvarenga Work Phone: [facility] 12-04-2021 11:29-0400 Systolic blood pressure 115 mm[Hg] DO Myrna Alvarenga Work Phone: [facility] 12-03-2021 15:01-0400 Body height 157.48 cm DO Myrna Alvarenga Work Phone: [facility] 12-03-2021 15:01-0400 Body mass index (BMI) [Ratio] 28.2 kg/m2 DO Myrna Alvarenga Work Phone: [facility] 12-03-2021 15:01-0400 Body weight 70.02 kg DO Myrna Alvarenga Work Phone: [facility] 12-03-2021 15:01-0400 Diastolic blood pressure 70 mm[Hg] DO Myrna Alvarenga Work Phone: [facility] 12-03-2021 15:01-0400 Heart rate 68 /min DO Myrna Alvarenga Work Phone: [facility] 12-03-2021 15:01-0400 Respiratory rate 16 /min DO Myrna Alvarenga Work Phone: [facility] 12-03-2021 15:01-0400 Systolic blood pressure 116 mm[Hg] DO Myrna Alvarenga Work Phone: [facility] 11-29-2021 09:49-0400 Body temperature 97.5 [degF] DO Myrna Alvarenga Work Phone: [facility] 11-29-2021 09:49-0400 Body weight 69.85 kg DO Myrna Alvarenga Work Phone: [facility] 11-29-2021 09:49-0400 Diastolic blood pressure 64 mm[Hg] DO Myrna Alvarenga Work Phone: [facility] 11-29-2021 09:49-0400 Heart rate 89 /min DO Myrna Alvarenga Work Phone: [facility] 11-29-2021 09:49-0400 Respiratory rate 16 /min DO Myrna Alvarenga Work Phone: [facility] 11-29-2021 09:49-0400 SaO2% (BldA) [Mass fraction] 96 % DO Myrna Alvarenga Work Phone: [facility] 11-29-2021 09:49-0400 Systolic blood pressure 115 mm[Hg] DO Myrna Alvarenga Work Phone: [facility] 11-05-2021 15:12-0400 Body temperature 98.2 [degF] DO Myrna Alvarenga Work Phone: [facility] 11-05-2021 15:12-0400 Body weight 70.08 kg DO Myrna Alvarenga Work Phone: [facility] 11-05-2021 15:12-0400 Diastolic blood pressure 62 mm[Hg] DO Myrna Alvarenga Work Phone: [facility] 11-05-2021 15:12-0400 Heart rate 72 /min DO Myrna Alvarenga Work Phone: [facility] 11-05-2021 15:12-0400 Respiratory rate 16 /min DO Myrna Alvarenga Work Phone: [facility] 11-05-2021 15:12-0400 Systolic blood pressure 98 mm[Hg] DO Myrna Alvarenga Work Phone: [facility] Encounters Encounter Date Encounter Type Care Provider Facility Start: 01-17-2025 End: 01-17-2025 Emergency department patient visit Nicole Garcia Facility:[facility] Start: 12-02-2024 End: 12-02-2024 ambulatory Mikal Wilcox Facility:[facility] Start: 11-09-2024 End: 11-09-2024 ambulatory Nicole A Barga DO Work Phone: [facility] Work Phone: Start: 11-09-2024 End: 11-09-2024 Patient encounter procedure Nicole Barga DO Work Phone: -[facility] Work Phone: Start: 10-24-2024 End: 10-24-2024 Patient encounter procedure Nicole Barga DO Work Phone: -[facility] Start: 10-24-2024 End: 10-24-2024 ambulatory Nicole A Barga DO Work Phone: [facility] Work Phone: Start: 10-24-2024 End: 10-24-2024 ambulatory Nicole A Barga DO Work Phone: [facility] Work Phone: Start: 10-24-2024 End: 10-24-2024 Patient encounter procedure Nicole Barga DO Work Phone: -[facility] Urgent Care Work Phone: Start: 08-31-2024 End: 08-31-2024 ambulatory Nicole A Barga DO Work Phone: [facility] Work Phone: Start: 08-31-2024 End: 08-31-2024 Patient encounter procedure Nicole Barga DO Work Phone: -[facility] Orthopedics Work Phone: Start: 08-09-2024 End: 08-09-2024 ambulatory Nicole A Barga DO Work Phone: [facility] Work Phone: Start: 08-09-2024 End: 08-09-2024 Patient encounter procedure Nicole Barga DO Work Phone: -[facility] Work Phone: Start: 08-02-2024 End: 08-02-2024 Patient encounter procedure Nicole Barga DO Work Phone: -Mammography Start: 08-02-2024 End: 08-02-2024 ambulatory Nicole A Barga DO Work Phone: [facility] Work Phone: Start: 07-31-2024 End: 07-31-2024 ambulatory Nicole A Barga DO Work Phone: [facility] Work Phone: Start: 07-31-2024 End: 07-31-2024 Patient encounter procedure Nicole Barga DO Work Phone: -[facility] Urology Work Phone: Start: 07-25-2024 End: 07-25-2024 Patient encounter procedure Nicole Barga DO Work Phone: [facility]-Laboratory Start: 07-25-2024 End: 07-25-2024 ambulatory Nicole A Barga DO Work Phone: [facility] Work Phone: Start: 07-12-2024 Non-patient / Non-visit Nicole Barga DO Work Phone: [facility] U[facility] Work Phone: Start: 07-12-2024 End: 07-12-2024 Admission to same day surgery center Nicole Barga DO Work Phone: [facility]-Surgery Outpatient Start: 07-12-2024 End: 07-12-2024 ambulatory Lion Nigel Hurtado Facility:[facility] Start: 07-03-2024 End: 07-03-2024 Patient encounter procedure Nicole Barga DO Work Phone: [facility] Urology Work Phone: Start: 06-12-2024 End: 06-12-2024 Patient encounter procedure Nicole Barga DO Work Phone: [facility]-Non-Pt/Dr Office Specimen Start: 06-12-2024 End: 06-12-2024 ambulatory Nicole A Barga DO Work Phone: [facility] Work Phone: Start: 06-12-2024 End: 06-12-2024 ambulatory Nicole A Barga DO Work Phone: [facility] Work Phone: Start: 06-12-2024 End: 06-12-2024 Patient encounter procedure Nicole Barga DO Work Phone: [facility] Work Phone: Start: 05-18-2024 End: 05-18-2024 ambulatory Nicole A Barga Facility:[facility] Start: 05-18-2024 End: 05-18-2024 Patient encounter procedure Nicole Barga DO Work Phone: [facility] Work Phone: Start: 04-21-2024 End: 04-21-2024 Patient encounter procedure Nicole Barga DO Work Phone: [facility]-Non-Pt/Dr Office Specimen Start: 04-21-2024 End: 04-21-2024 ambulatory Nicole A Barga DO Work Phone: [facility] Work Phone: Start: 04-21-2024 End: 04-21-2024 ambulatory Nicole A Barga DO Work Phone: [facility] Work Phone: Start: 04-21-2024 End: 04-21-2024 Patient encounter procedure Nicole Barga DO Work Phone: [facility] Work Phone: Start: 03-30-2024 End: 03-30-2024 ambulatory Nicole A Barga DO Work Phone: [facility] Work Phone: Start: 03-30-2024 End: 03-30-2024 Patient encounter procedure Nicole Barga DO Work Phone: [facility] Work Phone: Start: 03-27-2024 End: 03-27-2024 Emergency department patient visit Nicole Ildefonsoga DO Work Phone: [facility]-Emergency Department Start: 03-03-2024 End: 03-03-2024 ambulatory [facility] Work Phone: Start: 03-03-2024 End: 03-03-2024 Patient encounter procedure Formerly [facility] Physician [facility] Work Phone: Start: 02-28-2024 End: 02-28-2024 ambulatory Nicole A Barga DO Work Phone: [facility] Work Phone: Start: 02-28-2024 End: 02-28-2024 Patient encounter procedure Nicole Barga DO Work Phone: [facility] Work Phone: Start: 02-17-2024 End: 02-17-2024 ambulatory Nicole A Barga DO Work Phone: [facility] Work Phone: Start: 02-17-2024 End: 02-17-2024 Patient encounter procedure Nicole Barga DO Work Phone: [facility] Work Phone: Start: 01-24-2024 End: 01-24-2024 Patient encounter procedure Nicole Barga DO Work Phone: [facility] Work Phone: Start: 01-16-2024 End: 01-16-2024 Emergency department patient visit Nicole Fregosoga DO Work Phone: [facility]-Emergency Department Start: 12-03-2023 End: 12-03-2023 ambulatory DO Nicole A Barga Work Phone: [facility] Work Phone: Start: 12-03-2023 End: 12-03-2023 Patient encounter procedure DO Nicole Barga Work Phone: [facility]-Non-Pt/Dr Office Specimen Start: 12-03-2023 End: 12-03-2023 ambulatory DO Nicole A Barga Work Phone: [facility] Work Phone: Start: 12-03-2023 End: 12-03-2023 Patient encounter procedure DO Nicole Barga Work Phone: [facility] Work Phone: Start: 11-17-2023 End: 11-17-2023 ambulatory DO Nicole A Barga Work Phone: [facility] Work Phone: Start: 11-17-2023 End: 11-17-2023 Patient encounter procedure DO Nicole Barga Work Phone: [facility] Work Phone: Start: 10-14-2023 End: 10-14-2023 ambulatory DO Nicole A Barga Work Phone: [facility] Work Phone: Start: 10-14-2023 End: 10-14-2023 Patient encounter procedure DO Nicole Garcia Work Phone: [facility]-Non-Pt/Dr Office Specimen Start: 10-14-2023 End: 10-14-2023 ambulatory DO Nicole Garcia Work Phone: [facility] Work Phone: Start: 10-14-2023 End: 10-14-2023 Patient encounter procedure DO Nicole Garcia Work Phone: [facility] Work Phone: Start: 08-26-2023 End: 08-26-2023 ambulatory DO Nicole Garcia Work Phone: [facility] Work Phone: Start: 08-26-2023 End: 08-26-2023 Patient encounter procedure DO Nicole Garcia Work Phone: [facility] Orthopedics Work Phone: Start: 08-24-2023 Telephone encounter Mihir Awan DO Work Phone: Gastroenterology Start: 08-19-2023 ambulatory Mihir aragon DO Work Phone: Gastroenterology Comment on above: EGG RESULTS medication Start: 08-19-2023 Patient encounter procedure Mihir Awan DO Work Phone: [facility] Start: 08-16-2023 End: 08-16-2023 Subsequent hospital visit by physician Xr [facility] Comment on above: Chronic idiopathic c onstipation [K59.04] Start: 08-16-2023 End: 08-17-2023 ambulatory MIHIR AWAN Facility:[facility] Start: 08-16-2023 End: 08-16-2023 Patient encounter procedure Electrogastrogram [facility] Work Phone: Gastroenterology Comment on above: Gastroparesis (Prima ry Dx) Gastroparesis (Prima ry Dx); Chronic idiopathic constipation; Irritable bowel syndrome with constipation Gastroparesis (Prima ry Dx); Chronic idiopathic constipation Start: 08-13-2023 End: 08-13-2023 ambulatory DO Nicole A Barga Work Phone: [facility] Work Phone: Start: 08-13-2023 End: 08-13-2023 Patient encounter procedure DO Nicole Barga Work Phone: [facility]-Non-Pt/Dr Office Specimen Start: 08-13-2023 End: 08-13-2023 ambulatory DO Nicole A Barga Work Phone: [facility] Work Phone: Start: 08-13-2023 End: 08-13-2023 Patient encounter procedure DO Nicole Barga Work Phone: [facility], [facility] Work Phone: Start: 08-12-2023 Telephone encounter Mihir Awan DO Work Phone: Gastroenterology Comment on above: Care Coordination (G astroparesis clinic: chart review; new patient call - no answer.) Start: 08-03-2023 End: 08-03-2023 Patient encounter procedure DO Nicole Barga Work Phone: [facility]-Non-Pt/Dr Office Specimen Start: 08-03-2023 End: 08-03-2023 ambulatory DO Nicole A Barga Work Phone: [facility] Work Phone: Start: 08-03-2023 End: 08-03-2023 Patient encounter procedure DO Nicole Barga Work Phone: [facility], [facility] Urgent Care Work Phone: Start: 08-02-2023 End: 08-02-2023 ambulatory DO Nicole A Barga Work Phone: [facility] Work Phone: Start: 08-02-2023 End: 08-02-2023 Patient encounter procedure DO Nicole Fregosoga Work Phone: [facility]-Laboratory Start: 05-14-2023 End: 05-14-2023 ambulatory DO Nicole A Barga Work Phone: [facility] Work Phone: Start: 05-14-2023 End: 05-14-2023 Patient encounter procedure DO Nicole Barga Work Phone: [facility] Work Phone: Start: 04-12-2023 End: 04-12-2023 Emergency department patient visit DO Nicole Fregosoga Work Phone: [facility]-Emergency Department Start: 02-23-2023 End: 02-23-2023 ambulatory DO Nicole A Barga Work Phone: [facility] Work Phone: Start: 02-23-2023 End: 02-23-2023 Patient encounter procedure DO Nicole Barga Work Phone: [facility] Work Phone: Start: 02-15-2023 End: 02-15-2023 ambulatory DO Nicole A Barga Work Phone: [facility] Work Phone: Start: 02-15-2023 End: 02-15-2023 Patient encounter procedure DO Nicole Barga Work Phone: [facility]-Radiology Start: 02-12-2023 End: 02-12-2023 ambulatory DO Nathanael Brunner Work Phone: [facility] Work Phone: Start: 02-12-2023 End: 02-12-2023 Patient encounter procedure DO Nathanael Brunner Work Phone: [facility] Work Phone: Start: 01-23-2023 End: 01-23-2023 ambulatory DO Nathanael T Brunner Work Phone: [facility] Work Phone: Start: 01-23-2023 End: 01-23-2023 Patient encounter procedure DO Nathanael Brunner Work Phone: [facility]-Laboratory Start: 01-21-2023 End: 01-21-2023 ambulatory DO Nathanael [...] encounter procedure DO Nathanael Brunner Work Phone: [facility] - [facility] Start: 12-21-2022 End: 12-21-2022 [...] encounter procedure DO Nathanael Brunner Work Phone: [facility]-Non-Pt/Dr Office Specimen Start: 11-21-2022 End: 11-21-2022 ambulatory DO Nathanael Brunner Work Phone: [facility] Work Phone: Start: 11-21-2022 End: 11-21-2022 Patient encounter procedure DO Nathanael Brunner Work Phone: [facility] Work Phone: Start: 10-01-2022 End: 10-01-2022 ambulatory DO Nathanael Brunner Work Phone: [facility] Work Phone: Start: 10-01-2022 End: 10-01-2022 Patient encounter procedure DO Nathanael Brunner Work Phone: [facility] Work Phone: Start: 09-16-2022 End: 09-16-2022 Patient encounter procedure DO Nathanael Brunner Work Phone: [facility] Work Phone: Start: 08-28-2022 End: 08-28-2022 ambulatory DO Nathanael Brunner Work Phone: [facility] [...] patient visit DO Nathanael Fregosones Work Phone: [facility]-Emergency Department Start: 08-13-2022 End: 08-13-2022 ambulatory DO [...] ambulatory DO Nathanael T Brunner Work Phone: [facility] Work Phone: Start: 07-29-2022 End: 07-29-2022 Patient encounter procedure DO Nathanael Brunner Work Phone: [facility]-Mammography Start: 07-16-2022 End: 07-16-2022 Patient encounter procedure DO Nathanael Brunner Work Phone: [facility]-Laboratory - [facility] Start: 06-30-2022 End: 06-30-2022 ambulatory DO Nathanael Brunner Work Phone: [facility] Work Phone: Start: 06-30-2022 End: 06-30-2022 Patient encounter procedure DO Nathanael Brunner Work Phone: [facility] Start: 06-17-2022 End: 06-17-2022 ambulatory DO Nathanael Ya Brunner Work Phone: [facility] Work Phone: Start: 06-17-2022 End: 06-17-2022 Patient encounter procedure DO Nathanael Fregosones Work Phone: [facility] Start: 06-11-2022 End: 06-11-2022 ambulatory DO Nathanael Ya Brunner Work Phone: [facility] Work Phone: Start: 06-11-2022 End: 06-11-2022 Patient encounter procedure DO Nathanael Brunner Work Phone: [facility] Start: 05-27-2022 End: 05-27-2022 Patient encounter procedure DO Nathanael Brunner Work Phone: [facility] Start: 04-29-2022 End: 04-29-2022 ambulatory DO Nathanael T Brunner Work Phone: [facility] Work Phone: Start: 04-29-2022 End: 04-29-2022 Patient encounter procedure DO Nathanael Brunner Work Phone: [facility] Start: 04-13-2022 End: 04-13-2022 ambulatory DO Nathanael Brunner Work Phone: [facility] Work Phone: Start: 04-13-2022 End: 04-13-2022 Patient encounter procedure DO Nathanael Brunner Work Phone: [facility]Laboratory - [place] [facility] Start: 04-08-2022 End: 04-08-2022 ambulatory DO Nathanael Ya Brunner Work Phone: [facility] Work Phone: Start: 04-08-2022 End: 04-08-2022 Patient encounter procedure DO Nathanael Fregosones Work Phone: [facility] Start: 04-06-2022 End: 04-06-2022 ambulatory DO Nathanael Fregosones Work Phone: [facility] Work Phone: Start: 04-06-2022 End: 04-06-2022 Patient encounter procedure DO Nathanael Brunner Work Phone: [facility]-Laboratory Start: 02-26-2022 End: 02-26-2022 ambulatory DO Myrna Alvarenga Work Phone: [facility] Work Phone: Start: 02-26-2022 End: 02-26-2022 Patient encounter procedure DO Myrna Alvarenga Work Phone: [facility]-Nutrition Education Start: 02-04-2022 End: 02-04-2022 ambulatory DO Myrna K Alvarenga Work Phone: [facility] Work Phone: Start: 02-04-2022 End: 02-04-2022 Patient encounter procedure DO Myrna Alvarenga Work Phone: [facility] Start: 01-08-2022 End: 01-08-2022 Patient encounter procedure DO Myrna Barrs Work Phone: [facility] Medical [facility], [facility] Orthopedics Start: 12-17-2021 End: 12-17-2021 Patient encounter procedure DO Myrna Alvarenga Work Phone: [facility]-Radiology Start: 12-04-2021 End: 12-04-2021 Patient encounter procedure DO Myrna Alvarenga Work Phone: [facility] Cardiology Start: 12-03-2021 End: 12-03-2021 Patient encounter procedure DO Myrna Alvarenga Work Phone: [facility] [employer] Start: 11-29-2021 End: 11-29-2021 Patient encounter procedure DO Myrna Alvarenga Work Phone: [facility] Urgent Care Start: 11-19-2021 End: 11-19-2021 Patient encounter procedure DO Myrnacatherine Alvarenga Work Phone: [facility]-Laboratory Start: 11-05-2021 End: 11-05-2021 Patient encounter procedure DO Myrna Alvarenga Work Phone: [facility] Procedures Date Procedure Procedure Detail Performing Clinician Start: 10-24-2024 Urine culture Nicole Garcia DO Work Phone: Start: 08-02-2024 Screening mammography E josé Garcia DO Work Phone: Start: 07-25-2024 Microscopic urinalysis Nicole Garcia DO Work Phone: Start: 07-12-2024 Cystoscopy with Blad deandra Washing/Poss Bx (Not Applicable) Nicole Garcia DO Work Phone: Start: 06-12-2024 BD Veritor Covid Mando Garcia DO Work Phone: Start: 06-12-2024 Urine culture Nicole Barga DO Work Phone: Start: 05-18-2024 Urine culture Nicole Barga DO Work Phone: Start: 04-21-2024 Urine culture Nicole Barga DO Work Phone: Start: 03-27-2024 Blood culture for ba cteria, including anaerobic screen Nicole Barga DO Work Phone: Start: 03-27-2024 Microscopic urinalysis Nicole Barga DO Work Phone: Start: 03-27-2024 CT of abdomen and pe lvis without contrast Nicole Barga DO Work Phone: Start: 02-17-2024 Urine culture Nicole Barga DO Work Phone: Start: 01-16-2024 Urine culture Nicole Barga DO Work Phone: Start: 01-16-2024 CT of abdomen and pe lvis without contrast Nicole Barga DO Work Phone: Start: 01-16-2024 Microscopic urinalysis Nicole Barga DO Work Phone: Start: 12-03-2023 Urine culture Nicole Barga DO Work Phone: Start: 10-14-2023 End: 10-14-2023 Trichomonas vaginalis detection DO Nicole Barga Work Phone: Start: 10-14-2023 Urine culture DO Elizab eth Barga Work Phone: Start: 08-16-2023 Radiologic exam abdo men 1 view Mihir S Awan DO Work Phone: Start: 08-13-2023 Urine culture DO Elizab eth Barga Work Phone: Start: 08-03-2023 Radiography of [id number]-[id number]-[id number] DO Nicole Barga Work Phone: Start: 08-03-2023 Urine culture DO Elizab eth Barga Work Phone: Start: 08-02-2023 Screening mammography D O Nicole Garcia Work Phone: Start: 04-12-2023 Urine culture DO Mando Garcia Work Phone: Start: 04-12-2023 Microscopic urinalysis DO Nicole Garcia Work Phone: Start: 04-12-2023 Blood count hematocrit DO Nicole Garcia Work Phone: Start: 04-12-2023 CT of abdomen and pe lvis without contrast DO Nicole Garcia Work Phone: Start: 02-15-2023 XR Dexa & VFA & TBS DO Nicole Garica Work Phone: Start: 12-21-2022 Blood count hematocrit DO Nathanael Brunner Work Phone: Start: 12-15-2022 Urine culture DO Darling Brunner Work Phone: Start: 11-21-2022 Urine culture DO Darling as Brunner Work Phone: Start: 08-24-2022 Microscopic urinalysis DO Nathanael Brunner Work Phone: Start: 08-24-2022 Blood count hematocrit DO Nathanael Brunner Work Phone: Start: 08-24-2022 CT of abdomen and pe lvis without contrast DO Nathanael Brunner Work Phone: Start: 08-24-2022 Urine culture DO Draling as Brunner Work Phone: Start: 07-29-2022 Screening mammography D O Nathanael Brunner Work Phone: Start: 06-30-2022 Urine culture DO Darling as Brunner Work Phone: Start: 12-17-2021 Dual energy X-ray absorptiometry DO [employer] Work Phone: Start: 11-19-2021 Blood count hematocrit DO Myrna Alvarenga Work Phone: Start: 02-19-2020 Electrocardiogram Urine culture DO Myrna moura Work Phone: Plan of Treatment Date Care Activity Detail Author Start: 08-24-2026 Urine microalbumin profile DTaP,Tdap,Td Vaccine (2 - Td or Tdap) [facility] Start: 10-24-2024 Bacteria identified in Urine by Culture [facility] Start: 07-12-2024 Patient discharge [facility] Start: 06-12-2024 Bacteria identified in Urine by Culture [facility] Start: 06-12-2024 Patient referral [facility] Work Phone: Start: 04-21-2024 Bacteria identified in Urine by Culture [facility] Start: 03-27-2024 Bacteria identified in Blood by Culture Blood Culture [facility] Start: 03-27-2024 Blood culture for bacteria, including anaerobic screen Blood Culture [facility] Start: 02-17-2024 Bacteria identified in Urine by Culture [facility] Start: 01-16-2024 Bacteria identified in Urine by Culture [facility] Start: 12-03-2023 Bacteria identified in Urine by Culture [facility] Start: 10-14-2023 Bacteria identified in Urine by Culture [facility] Start: 10-14-2023 Trichomonas vaginalis (MAICO Trichomonas vaginalis (MAICO [facility] Start: 10-14-2023 Bacterial vaginosis and vaginitis rRNA panel - Vaginal fluid by Probe [facility] Start: 08-16-2023 End: 11-15-2023 ACETYLCHOLINE REC BINDING AB [facility] Work Phone: Comment on above: Expected: 08/16/2023, Expires: Start: 08-16-2023 End: 11-15-2023 AMINO ACIDS, PLASMA W/ CONSULTATION [facility] Work Phone: Comment on above: Expected: 08/16/2023, Expires: 4 Start: 08-16-2023 End: 11-15-2023 CARNITINE FREE/TOTAL, PLASMA [facility] Work Phone: Comment on above: Expected: 08/16/2023, Expires: Start: 08-16-2023 End: 11-15-2023 CYTOKINE PANEL 13, SERUM [facility] Work Phone: Comment on above: Expected: 08/16/2023, Expires: 4 Start: 08-16-2023 End: 11-15-2023 Erythrocyte sedimentation rate [facility] Work Phone: Comment on above: Expected: 08/16/2023, Expires: Start: 08-16-2023 End: 11-15-2023 ESTROGEN FRACTION BL [facility] Work Phone: Comment on above: Expected: 08/16/2023, Expires: 4 Start: 08-16-2023 End: 11-15-2023 Glutamate decarboxylase 65 Ab [Units/volume] in Serum [facility] Work Phone: Comment on above: Expected: 08/16/2023, Expires: Start: 08-16-2023 End: 11-15-2023 IgA [Mass/volume] in Serum or Plasma [facility] Work Phone: Comment on above: Expected: 08/16/2023, Expires: 4 Start: 08-16-2023 End: 11-15-2023 IgG [Mass/volume] in Serum or Plasma [facility] Work Phone: Comment on above: Expected: 08/16/2023, Expires: Start: 08-16-2023 End: 11-15-2023 IgM [Mass/volume] in Serum or Plasma [facility] Work Phone: Comment on above: Expected: 08/16/2023, Expires: 4 Start: 08-16-2023 End: 11-15-2023 Lactate dehydrogenase [Enzymatic activity/volume] in Serum or Plasma [facility] Work Phone: Comment on above: Expected: 08/16/2023, Expires: Start: 08-16-2023 End: 11-15-2023 ORGANIC ACIDS UR, QUANT W/CONSULTATION [facility] Work Phone: Comment on above: Expected: 08/16/2023, Expires: 4 Start: 08-16-2023 End: 11-15-2023 PYRUVATE+LACTATE BL [facility] Work Phone: Comment on above: Expected: 08/16/2023, Expires: Start: 08-16-2023 End: 11-15-2023 VOLTAGE GATED CA IGG [facility] Work Phone: Comment on above: Expected: 08/16/2023, Expires: 4 Start: 08-16-2023 End: 11-15-2023 Voltage-gated potassium channel Ab [Moles/volume] in Serum [facility] Work Phone: Comment on above: Expected: 08/16/2023, Expires: Start: 08-13-2023 Bacteria identified in Urine by Culture [facility] Start: 08-13-2023 Bacteria identified in Urine by Culture [facility] Start: 08-03-2023 Radiography of [id number]-isywam-[id number] XR KUB [facility] Start: 08-03-2023 XR Abdomen Single view [facility] Start: 08-02-2023 MG Breast Screening [facility] Start: 08-02-2023 Screening mammography MM 3D screening BI [facility] Start: 05-31-2023 Advance Directive Discussion Advance Directive Discussion [facility] Start: 05-31-2023 Depression Assessment Depression Assessment [facility] Start: 04-12-2023 Bacteria identified in Urine by Culture [facility] Start: 02-26-2023 Diabetes Screening Diabetes Screening [facility] Start: 02-15-2023 XR Dexa & VFA & TBS XR Dexa & VFA & TBS [facility] Start: 01-29-2023 Covid-19 Vaccine ( season) Covid-19 Vaccine () [facility] Start: 01-29-2023 Influenza vaccination Influenza Vaccine (#1) [facility] Start: 12-15-2022 Bacteria identified in Urine by Culture [facility] Start: 11-21-2022 Bacteria identified in Urine by Culture [facility] Start: 08-24-2022 Bacteria identified in Urine by Culture [facility] Start: 07-29-2022 Screening mammography MM 3D screening BI [facility] Start: 06-30-2022 Bacteria identified in Urine by Culture [facility] Start: 12-17-2021 Dual energy X-ray absorptiometry [facility] Start: 2009 Screening for osteoporosis Bone Density Screening [facility] Start: 1962 Hepatitis C screening Hepatitis C Screening [facility] B12/folate level [facility] Bacteria identified in Urine by Culture Urine Culture [facility] Bacteria identified in Urine by Culture [facility] Bacterial nucleic acid assay [facility] Basic metabolic 2000 panel - Serum or Plasma [facility] Laly sp rRNA [Pre sence] in Vaginal fluid by Probe [facility] CBC W Auto Different ial panel - Blood [facility] Electrogastrography dx transcutaneous EGG (ELECTROGASTROGRAPHY) Procedures Routine Gastroparesis Ordered: 07/07/[address] [facility] Work Phone: Comment on above: Ordered: 07/07/2023 Lactobacillus crispatus+gasseri+jensenii + Gardnerella vaginalis + Atopobium vaginae rRNA [Presence] in Vaginal fluid by MAICO with probe detection [facility] Lipid panel [facility] MG Breast Diagnostic [facility] MG Breast Diagnostic [facility] Patient Education [facility] Patient referral [facility] Work Phone: Plasma parathyroid h ormone level [facility] T4 free measurement [facility] T4 free measurement [facility] Thyroid stimulating hormone measurement [facility] Thyrotropin [Units/v olume] in Serum or Plasma [facility] Trichomonas vaginali s detection [facility] Urinalysis macro (di pstick) panel - Urine [facility] Urinalysis macro (di pstick) panel - Urine [facility] Urinalysis macro (di pstick) panel - Urine [facility] Urine culture [facility] Immunizations Immunization Date Immunization Notes Care Provider Fa cility 02-04-2024 COVID-19 (PFR) 2023 12Y and older Nicole Garcia DO Work Phone: [facility] 02-04-2024 influenza, high dose seasonal, preservative-free Nicole Garcia DO Work Phone: [facility] 05-22-2023 RSV, recomb., protei n subunit RSVpreF, adj. DO Nicole Garcia Work Phone: [facility] 02-06-2022 COVID-19 MODERNA Bivalent Booster 18+ DO Nathanael Brunner Work Phone: [facility] 02-06-2022 Influenza Vaccine Quadrivalent Adjuvanted PF DO Nathanael Fregosones Work Phone: [facility] 02-06-2022 influenza virus vacc ine, unspecified formulation Mihir Awan DO Work Phone: [facility] 09-11-2021 COVID-19 PFIZER Mitch-sucrose Age 12+ DO [employer] Work Phone: [facility] 03-24-2021 COVID-19 MODERNA DO Myrna M ills Work Phone: [facility] 02-06-2021 Influenza, high-dose , quadrivalent, 0.7ml, PF DO [employer] Work Phone: [facility] 07-27-2020 COVID-19 MODERNA DO Myrna M ills Work Phone: [facility] 07-08-2020 COVID-19 PFIZER DO Myrna Mi lls Work Phone: [facility] 06-29-2020 COVID-19 MODERNA DO Myrna M ills Work Phone: [facility] 06-19-2020 COVID-19 PFIZER DO Myrna Mi lls Work Phone: [facility] 02-20-2020 Influenza, high-dose , quadrivalent, 0.7ml, PF DO Myrna Alvarenga Work Phone: [facility] 02-23-2019 influenza, seasonal, injectable DO Myrna Alvarenga Work Phone: [facility] 09-13-2018 zoster vaccine recombinant DO Myrna Alvarenga Work Phone: [facility] 05-25-2018 zoster vaccine recombinant DO Myrna Alvarenga Work Phone: [facility] 02-05-2018 influenza, high dose seasonal, preservative-free DO Myrna Alvarenga Work Phone: [facility] 02-23-2017 influenza, seasonal, injectable DO Myrna Alvarenga Work Phone: [facility] 08-24-2016 tetanus toxoid, redu timothy diphtheria toxoid, and acellular pertussis vaccine, adsorbed DO Myrna Alvarenga Work Phone: [facility] 06-08-2016 pneumococcal polysaccharide vaccine, 23 valent DO Myrna Alvarenga Work Phone: [facility] 01-19-2016 influenza, high dose seasonal, preservative-free DO Myrna Alvarenga Work Phone: [facility] 05-20-2015 pneumococcal conjuga te vaccine, 13 valent DO Myrna Alvarenga Work Phone: [facility] 02-20-2015 influenza, injectabl e, quadrivalent, contains preservative DO Myrna Alvarenga Work Phone: [facility] 01-31-2015 influenza, high dose seasonal, preservative-free DO Myrna Alvarenga Work Phone: [facility] 02-26-2014 influenza, seasonal, injectable DO Myrna Alvarenga Work Phone: [facility] 02-22-2013 influenza, seasonal, injectable DO Myrna Alvarenga Work Phone: [facility] 06-16-2011 zoster vaccine, live DO Raquel ly Alvarenga Work Phone: [facility] 06-11-2011 pneumococcal polysaccharide vaccine, 23 valent DO Myrna Alvarenga Work Phone: [facility] Payers Date Payer Category Payer Self-pay [id number] 2020 Medicare [id number] 2020 Private Health Insurance AETNA A ETNA MEDICARE SUPPLEMENT [id number] 2020-Present [phone] [address] [address] [place] [address] Indemnity [id number] 2009 Medicare [id number] 2009 Medicare MEDICARE MEDICAR E A AND B [id number] 2009-Present [phone] [place] [address] Medicare [id number] 1945 Unknown [id number]. 1186 1944 Unknown [id number]. 1186 1944 Unknown [id number]. 1186 1944 Unknown [id number] [id number]. 1186 1944 Unknown [id number] 2.16.840.1.916021.3.579.2. 1186 1944 Unknown [id number] [id number]. 1186 1944 Unknown [id number] 2.16.840.1.241974.3.579.2. 1186 1944 Unknown [id number] [id number]. 1186 1944 Unknown [id number] [id number]. 1186 1944 Unknown [id number] [id number]. 1186 1944 Unknown [id number] [id number]. 1186 Unknown [facility] [id number] Social History Date Type Detail Facility Start: 12-04-2021 End: 11-09-2024 Tobacco smoking status MEIS Ex-smoker (finding) [facility] Start: 12-04-2021 0 [facility] Start: 12-04-2021 Denies Use [facility] Start: 1945 Sex Assigned At Female [facility] Start: 02-04-2022 Alone [facility] Start: 06-17-2022 Other Family Member(s) [facility] Start: 08-24-2022 Kazakh [facility] Start: 04-12-2023 Never Used [facility] Tobacco smoking status MEIS Tobacco smoking consumption unknown [facility] Start: 1945 Sex Assigned At Not on file [facility] Start: 08-16-2023 Gender identity Not on file [facility] Start: 08-16-2023 History of Social function [facility] National Score (1-100), lower number is lower risk 54 [facility] Start: 01-16-2024 End: 11-09-2024 Sex Female (finding) [facility] NEGATED: Highlighted row [facility] Goals Date Patient Goal Desired Activity /State Mental Status Date Assessment Result Facility 07-12-2024 Cognitive function Comprehension Ability No Impairment [facility] Work Phone: 07-05-2024 Cognitive function No Impairment [facility] Work Phone: Clinical Notes 11-13-2021 to 08-31-2024 Note Date & Type Note Facility 08-31-2024 Evaluation note Diagnosis Onset Date Resolution Osteoporosis acute August 31, 025 1:43pm Postmenopausal acute August 31, 2024 1:43pm Urinary tract infection noneactive M 2024 10:18am [facility] [employer] Work Phone: [phone] Evaluation note* Diagnosis Onset Date Resolution Status Admit Date Recurrent UTI chronic July 31, 2024 11:17am MDD (major depressive disorder), recurrent severe, without psychosis acute August 09 2:08pm Acute right hip pain noneactive Jarad 2024 2:08pm Anxiety noneactive August 09 2:08pm Dysuria noneactive August 09 2:08pm Right inguinal pain noneactive August 09, 2024 2:08pm Osteoporosis acute August 31 025 1:43pm Postmenopausal acute August 31, 2024 1:43pm Urinary tract infection noneactive M ay 2024 10:18am [facility] [employer] Work Phone: [phone] [facility] [address] [place] [address] Office Visit Report Signed Patient Name: Sherry [facility] Rec ord #: [id number] Date of : 1945 Account #: [id number] Age/Sex: 78 / F Date of Servi ce: 07/31/24 Location: [facility] Urology Attending physician: Lion Hurtado MD Vital Signs 07/31/24 11:56 07/31/24 12:02 Height 5 ft 10 in Weight (kg) 68.606 kg BMI 21.7 BP 182/72 H 182/72 H BP Location Right Brachial BP Position Sitting BP Cuff Size Adult BP Source Automatic Cuff Pulse 77 Intake Visit Reasons: Cysto, bladder irrigation f/u Allergies Allergy/AdvReac Type Severity Reaction Status Date / Time oxycodone Allergy Severe Headache Verified 07/31/24 11:56 Iodinated Contrast Media Allergy Mild headache, Verified 07/31/24 11:56 burning skin Penicillins Allergy Mild Rash Verified 07/31/24 11:56 Quinolones Allergy Mild Rash Verified 07/31/24 11:56 moxifloxacin Allergy Unknown Unknown Verified 07/31/24 11:56 doxycycline AdvReac Intermediate TEARS UP Verified 07/31/24 11:56 STOMACH- CAUSES ALOT OF PAIN hydrocodone AdvReac Intermediate vomiting, Verified 07/31/24 11:56 headache nitrofurantoin (From AdvReac Intermediate Vomiting Verified 07/31/24 11:56 Macrobid) albuterol AdvReac Mild HEADACHE,NA Verified 07/31/24 11:56 USEA bee venom protein (honey bee) AdvReac Mild swelling, Verified 07/31/24 11:56 vomiting calcium AdvReac Mild GI upset Verified 07/31/24 11:56 fluconazole AdvReac Mild Headache Verified 07/31/24 11:56 Current Medication List - Last Reconciled 07/31/24 by Catrachita Latham alprazolam 0.25 mg tablet 0.25 mg PO BID PRN 30 days cholecalciferol (vitamin D3) 50 mcg (2,000 unit) capsule 50 mcg PO DAILY denosumab 60 mg/mL subcutaneous syringe (Prolia) 60 mg subcut [id number] fluconazole 150 mg tablet 150 mg PO ONCE fluticasone propionate 50 mcg/actuation nasal spray,suspension 1 spray Nostril-both DAILY loratadine 10 mg tablet 10 mg PO DAILY multivitamin 1 tab PO DAILY pantoprazole 40 mg tablet,delayed release 40 mg PO DAILY polyethylene glycol 3350 17 gram oral powder packet (Miralax) 17 grams PO DAILY rosuvastatin 40 mg tablet 40 mg PO DAILY 90 days Saccharomyces boulardii (Daily Probiotic (S. boulardii)) 1 cap PO DAILY sulfamethoxazole 800 mg-trimethoprim 160 mg tablet (Bactrim DS) 1 tab PO BID venlafaxine 37.5 mg capsule,extended release 24 hr 37.5 mg PO DAILY Nurse's Note: f/u cysto bladder irrigation PFS Medical History Abdominal pain Nausea Acute UTI (urinary tract infection) Congenital ureteropelvic [...] Abuse or Suspected Abuse: No HPI HPI Cysto, bladder irrigation f/u: Details: The patient, a 78-year-old woman with a history of recurrent urinary tract infections, presents forfollow-up after a recent cystoscopy with bladder irrigation performed on July 12, 2024. During the procedure, significant debris was found in the bladder, which was subsequently irrigated. The patient reports having recently started taking Hiprex, which was prescribed by another physician following her last urinary tract infection. She had initially believed it to be an antibiotic but was informed during this visit that it is not. The patient also mentions that cranberry juice alone did not seem to be effective in preventing her urinary tract infections. Medical History: - Recurrent urinary tract infections - Recent cystoscopy with bladder irrigation (July 12, 2024) Current Medications and Supplements: - Hiprex (methenamine hippurate) Past Treatments: - Cranberry juice (reported as ineffective in preventing urinary tract infections) PHQ-2/PHQ-9 PHQ-2 Over the last 2 weeks, how often have you been bothered by any of the following problems? Little interest or pleasure in doing things: not at all Feeling down, depressed, or hopeless: not at all Total score: 0 Review of Systems Status of ROS Reports: 10 or more systems reviewed and unremarkable except as noted in Historyand below Physical Exam Constitutional Common normals: no acute distress, patient oriented x3 and alert HENT Common normals: normocephalic and moist oral mucous membranes Head and scalp: normocephalic Eye Common normals: Equal, round and reactive pupils present, EOMs intact bilaterally and conjunctivae normal Conjunctiva: conjunctivae normal Pupil: Equal, round and reactive pupils present Neck & C-Spine Common normals: no JVD Lymph Lymphatic: no lymphadenopathy noted Respiratory Common normals: normal respiratory effort and Normal inspection Cardio Common normals: no JVD, regular rate and regular rhythm Rate: regular rate Rhythm: regular rhythm GI Common normals: Normal to inspection, nondistended, normoactive bowel sounds present Common normals: no CVA tenderness Bladder/kidney exam: no CVA tenderness Back & Pelvis Common normals: no CVA tenderness Extremity Common normals: full ROM and no calf tenderness Neuro Common normals: alert and patient oriented x3 Sensorium/orientation: Yes alert Skin Common normals: no rashes or lesions noted General skin exam: no rashes or lesions noted Assessment & Plan Assessment & Plan (1) Recurrent UTI: Code(s): N39.0 - Urinary tract infection, site not specified Category: Medical Plan 1. Recurrent Urinary Tract Infections: - The patient is a 78-year-old woman with a history of recurrent urinary tract infections. A cystoscopy with bladder irrigation was performed on 2024, which revealed significant debris inthe bladder. The procedure was successful in clearing the debris, establishing a baseline for future management. The clinician acknowledges that future infections are likely due to the patient's immune status, and repeat procedures may be necessary. - Plan: a. Continue aggressive hydration b. Maintain regular urination intervals c. Implement proper voiding techniques: full pants down, legs out, leaning forward, pushing in and down over bladder d. Practice double voiding technique: stand up, march in place, sit down, and repeat voiding process e. Continue cranberry juice consumption f. Continue Hiprex (methenamine hippurate) as prescribed g. Contact office for symptoms suggestive of urinary tract infection h. Discontinue long-term suppressive antibiotics Dictated By: Lion Hurtado MD 07/31/24 1156 Signed By: 07/31/24 1211 Cosigned By (if applicable): [id number] cc: Lion Hurtado MD [facility]01-13-2025 Evaluation note* Diagnosis Onset Date Resolution Status Admit Date Recurrent UTI chronic May 9:52am Right inguinal pain noneactive 2024 9:52am Viral URI noneactive June 12, 2024 9:52am Recurrent UTI chronic July 10:25am Recurrent UTI chronic July 31, 2024 11:17am MDD (major depressive disorder), recurrent severe, without psychosis acute August 09 2:08pm Acute right hip pain noneactive 2024 2:08pm Anxiety noneactive August 09 2:08pm Dysuria noneactive August 09 2:08pm Right inguinal pain noneactive August 09, 2024 2:08pm Osteoporosis acute August 31 025 1:43pm Postmenopausal acute August 31, 2024 1:43pm [facility] Work Phone: [phone] [facility] [place] [address] [place] [address] Office Visit Report Signed Patient Name: Sherry Ash [facility] Rec ord #: [id number] Date of : 1945 Account #: [id number] Age/Sex: 78 / F Date of Servi ce: 06/12/24 Location: [facility] Attending physician: Nicole Garcia DO Vital Signs 06/12/24 10:19 06/12/24 10:22 Height 5 ft 2 in Weight (kg) 154 lb 2 oz BMI 28.1 BP 90/66 L 90/66 L BP Location Right Brachial BP Position Sitting BP Cuff Size Adult BP Source Manual Cuff Respiration 20 Pulse 74 Pulse Source Monitor Temp 98.6 F Temp Source Temporal Artery Scan Pulse Oximetry (%) 97 Oxygen Delivery Method Room Air Intake Visit Reasons: Urinary tract infection & URI Allergies Allergy/AdvReac Type Severity Reaction Status Date / Time oxycodone Allergy Severe Headache Verified 06/12/24 10:12 Iodinated Contrast Media Allergy Mild headache, Verified 06/12/24 10:12 burning skin Penicillins Allergy Mild Rash Verified 06/12/24 10:12 Quinolones Allergy Mild Rash Verified 06/12/24 10:12 moxifloxacin Allergy Unknown Unknown Verified 06/12/24 10:12 cephalexin AdvReac Intermediate Vomiting Verified 06/12/24 10:12 doxycycline AdvReac Intermediate TEARS UP Verified 06/12/24 10:12 STOMACH- CAUSES ALOT OF PAIN hydrocodone AdvReac Intermediate vomiting, Verified 06/12/24 10:12 headache nitrofurantoin (From AdvReac Intermediate Vomiting Verified 06/12/24 10:12 Macrobid) albuterol AdvReac Mild HEADACHE,NA Verified 06/12/24 10:12 USEA bee venom protein (honey bee) AdvReac Mild swelling, Verified 06/12/24 10:12 vomiting calcium AdvReac Mild GI upset Verified 06/12/24 10:12 fluconazole AdvReac Mild Headache Verified 06/12/24 10:12 Current Medication List - Last Reconciled 06/12/24 by Alma Rodriguez alprazolam 0.25 mg tablet 0.25 mg PO BID PRN 30 days cholecalciferol (vitamin D3) 50 mcg (2,000 unit) capsule 50 mcg PO DAILY denosumab 60 mg/mL subcutaneous syringe (Prolia) 60 mg subcut [id number] fluticasone propionate 50 mcg/actuation nasal spray,suspension 1 spray Nostril-both DAILY loratadine 10 mg tablet 10 mg PO DAILY methenamine hippurate 1 gram tablet 1 GM PO BID 30 days miconazole nitrate 2 % topical cream 1 applic topical BEDTIME 7 days multivitamin 1 tab PO Q OTHER DAY nystatin 100,000 unit/gram topical powder (Nystop) 1 applic topical BID PRN pantoprazole 40 mg tablet,delayed release 40 [...] release 24 hr 37.5 mg PO DAILY Nurse's Note: Pt here with c/o burning with urination, bilateral lower back pain, and cough that started 06/10/24. Pt also c/o right groin pain that started last week. [facility] Medical History Acute UTI (urinary tract infection) Congenital ureteropelvic [...] Abuse or Suspected Abuse: No HPI HPI Urinary tract infection & URI: Details: Patient presents today for sick visit for multiple concerns as below. Blood pressure today low at 90/66, confirmed with Doppler; incidentally noted onvitals, patient asymptomatic. States drinking water a lot lately. Has home wirstBP cuff. Not symptomatic/dizzy this AM.Will check home BP over next few days after treating for UTI. Frequent UTIs: c/o burning with urination, bilateral lower/lumbar back pain starting from 06/10/24 -Urinalysis today showing trace leukocyte esterase, otherwise negative/normal. -Last visit 05/18/2024 had UA with positive nitrates and large leukocyte esterase with proteinuria,moderate blood, small bilirubin. We had treated thiswith Bactrim and then had patient start methenamine hippurate 1 g twice daily asUTI preventative after finishing the Bactrim course due to history of frequent UTIs. Culture then grew E. coli, no resistance -Has been taking the methenamine hippurate for about 3 weeks now -UTI prior to that in March 2024 also grew pansensitive E. coli in culture -In past around [address] Hurtado, initially stated she would want to see adifferent urologistbut based on location she would actually prefer to go back to Dr. Hurtado as he is closest neurologist; given new referral to this office Some low back/lumbar pain (states associated/aggravated by extended periods of sitting), but no CVAtenderness. 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 Does have listed allergies/adverse reactions to penicillins, colons, moxifloxacin, cephalexin, doxycycline, and nitrofurantoin [rash or GI symptoms for all] URI: Also endorses a mild dry/nonproductive intermittent cough last couple days, associated with nasal congestion and dry throat. States symptoms mild, not as bothersome as the UTI-like symptoms. No fevers at home, no chills. Afebrile in office today. Negative COVID/flu rapid testing. States daughter in law had GI bug recently, no other sick contacts. Has netti pot at home, agreeable to using this for symptoms, also discussed below OTC meds as underpatient instructions. MSK right groin/hip pain: also c/o right groin pain that has been intermittent, maybe couple weeks duration but on and off not constant. Describes this as a pain that is sharp inright inguinal region that radiates deeper. Points over area of right hip jointanteriorly. States she notices it more when active walking on treadmill, with this aggravation being occasionalup to once a week; may last up to 2-3 hours at the longest [sometimes just seconds or minutes] thenself-resolve. Last happened this AM when walking around, just very briefly few seconds. States very active at baseline. No prior hip imaging or known history of any significant hip osteoarthritis. Review of Systems Narrative Constitutional: No fevers, chills Respiratory/HENT: see HPI; no SOB/wheezing Cardiovascular: no chest pain or dyspnea on exertion. Genito-Urinary: see as above in HPI Physical Exam Narrative Exam Narrative: Constitutional: Mildly ill appearing with slightly congested sounding speech, nontoxic appearance Eyes: EOMI , non-icteric sclera. ENMT: MMM, external ear appear normal : No true CVA tenderness, points to area of pain as lower to mid lumbar region Cardiovascular: RRR, normal S1/S2, no murmurs, gallops or rubs . Results UA Results Urine Apperance clear Last Edit by Alma Rodriguez on 06/12/24 10:27 Urine Color Dark Yellow Last Edit by Alma Rodriguez on 06/12/24 10:27 Urine Glucose Negative Last Edit by Alma Rodriguez on 06/12/24 10:27 Urine Bilirubin Negative Last Edit by Alma Rodriguez on 06/12/24 10:27 Urine Ketones Negative Last Edit by Alma Rodriguez on 06/12/24 10:[address] 1.015 Last Edit by Alma Rodriguez on 06/12/24 10:27 Urine Blood Negative Last Edit by Alma Rodriguez on 06/12/24 10:27 Urine pH 6.5 Last Edit by Alma Rodriguez on 06/12/24 10:27 Urine Protein Negative Last Edit by Alma Rodriguez on 06/12/24 10:27 Urine Urobilinogen 0.2 Last Edit by Alma Rodriguez on 06/12/24 10:27 Urine Nitrite Negative Last Edit by Alma Rodriguez on 06/12/24 10:27 Urine Leukocytes Trace Last Edit by Alma Rodriguez on 06/12/24 10:27 BD Veritor Covid BD Veritor Covid Negative Last Edit by Alma Rodriguez on 06/12/24 10:28 Flu A: Negative Flu B: Negative Assessment & Plan Assessment & Plan (1) Recurrent UTI: Code(s): N39.0 - Urinary tract infection, site not specified Category: Medical (2) 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 Discussed monitoringhome blood pressures, patient will check home BP over next few days after treating for UTI. If not improving with top number/SBP staying 100+ patient is to let our office know. Frequent UTIs: -Due to severity of dysuria along with a trace leukocytes discussed okay to treat with Bactrim, will send urine for culture as well. -Advised to hold methenamine hippurate while taking the Bactrim -Discussed importance of going back to urology to the frequency of her UTI-like symptoms [as well as underlying history of congenital UPJ obstruction bilaterally although this was noted to be mild/not clinically significant on past urology note], given new referral to this office URI: Mild symptoms with negative rapid testing, discussed treating symptomatically for now, likely viraletiology. Has netti pot at home, agreeable to using this for symptoms, also discussed below OTC meds as underpatient instructions. MSK right groin/hip pain: Discussed likely MSK etiology such as muscular spasm since it is aggravated withincreased activity,discussed starting with stretching before physical activity such as when she walks on the treadmill. If pain continuing/more frequent or more severe discussed can get x-ray right hip to evaluate for any underlying arthritis and may also be contributing to this. She defers imaging workup for now. === She will make appointment with urology; scheduled for 07/03/2024. Will call with urine culture once available, will check on home blood pressure readings as well then. Keep previously scheduled follow-up for 08/09/2024 Orders: Orders AM.Urinalysis Today R30.0 - Dysuria Rapid Covid and Flu A&B Today R05.9 - Cough, unspecified Urine Culture Today R30.0 - Dysuria Referrals Referral Urology N39.0 - Urinary tract infection, site not specified, Q62.39 - Other obstructive defects of renal pelvis and ureter Medications: New sulfamethoxazole-trimethoprim 800-160 mg (Bactrim DS) Hold methenamine with on generic bactrim antibiotic 1 tab PO Q12H 6 tabs 0RF 3 days N39.0 - Urinarytract infection, site not specified Patient Instructions: Notes: It was a pleasure to see you today. Here are some of the sair-apf-fkuzbid treatments you may try as below: ... FOR CONGESTION: - nasal saline rinses such as NeilMed or Neti pot are very helpful, please use room temperature bottled water along with the included saline packet and hold your breath while using the rinse per package directions. - steam such as from hot showers can also be helpful for decongestion, or household humidifiers - nasal steroid sprays such as Flonase/fluticasone or Nasacort can be helpful with decreasing congestion, especially if seasonal allergies may be a factor. - if you do not have issues with high blood pressure/are not on blood pressure medications, it is okay to use Sudafed (pseudoephedrine works better than phenylephrine) for short periods of time such as a few days at a time for when the congestion is most severe. Do not use this more than a few daysin a row, asit can increase blood pressure and heart rate. ... FOR COUGH: - you can try hnep-exc-zoyseoj Delsym/dextromethorphan cough medicine - please also stay well hydrated, sometimes cough is related to postnasal drip (mucus running down the back of your throat) and keeping this mucus as thin as possible by drinking lots of water (or other non caffeinated hydrating fluids including Gatorade, Pedialyte) is helpful for this ... FOR SORE THROAT: - in addition to staying well hydrated as above and treating cough as it may contribute to throat pain, numbing cough drops such as Chloraseptic (or generic equivalent with benzocaine) brand or Chloraseptic brand throat spray (also numbing with phenol) can be helpful. Honey can also be soothing forsore throat and has antimicrobial properties. ... FOR FEVER/BODY ACHES: - it is okay to take Tylenol 500-1000 mg (up to every 6-8 hours for max total dose 3000mg total daily) as needed for fever or body aches/pain - if able to take NSAIDs (no kidney issues, no stomach ulcers, and not on blood- thinners) you can also take ibuprofen (400-600mg up to every 6 hours; or 800mg up to every 8 hours) as needed in addition to or instead of the Tylenol ... Alarm symptoms for which to call the office or potentially go to the ER (if severe enough) include difficulty breathing (trouble catching your breath beyondyour normal level, especially to the point of making it difficult for you to talk in complete sentences), high fevers (>101 degrees F) that do not improve with Tylenol and ibuprofen, or signs of dehydration (such as urinating less often, significantly decreased oral intake or being unable to keep liquids down for several days) Dictated By: Nicole Garcia DO 06/12/24 1008 Signed By: 06/12/24 1220 Cosigned By (if applicable): [id number] cc: Nicole Garcia DO [facility]12-19-2024 Evaluation note* Diagnosis Onset Date Resolution Status Admit Date MDD (major depressive disorder), recurrent severe, without psychosis acute Decemb er 2023 10:35am Low back pain chronic May 182023 10:35am Recurrent UTI (urinary tract infection) noneactive May 18, 2024 10:35am Recurrent UTI chronic May 9:52am Right inguinal pain noneactive 2024 9:52am Viral URI noneactive June 12, 2024 9:52am Recurrent UTI chronic July 10:25am [facility] Work Phone: [phone] Evaluation note* Diagnosis Onset Date Resolution Status Admit Date MDD (major depressive disorder), recurrent severe, without psychosis acute Decemb er 2023 10:35am Low back pain chronic May 182023 10:35am Recurrent UTI (urinary tract infection) noneactive May 18, 2024 10:35am Recurrent UTI chronic May 9:52am Right inguinal pain noneactive 2024 9:52am Viral URI noneactive June 12, 2024 9:52am Recurrent UTI chronic July 10:25am Recurrent UTI chronic July 31, 2024 11:17am [facility] Work Phone: [phone] [facility] [address] [place] [id number] Office Visit Report Signed Patient Name: Sherry Ash Medical Rec ord #: [id number] Date of : 1945 Account #: [id number] Age/Sex: 78 / F Date of Servi ce: 04/21/24 Location: [facility] Urgent Care Attending physician: Tisha DIOP Intake Vital Signs 04/21/24 09:33 BP 106/59 L Respiration 18 Pulse 91 Pulse Source NIBP Temp 98.4 F Pulse Oximetry (%) 96 Intake Visit Reasons: Possible Kidney Infection Allergies Allergy/AdvReac Type Severity Reaction Status Date / Time oxycodone Allergy Severe Headache Verified 04/21/24 09:33 Iodinated Contrast Media Allergy Mild headache, Verified 04/21/24 09:33 burning skin Penicillins Allergy Mild Rash Verified 04/21/24 09:33 Quinolones Allergy Mild Rash Verified 04/21/24 09:33 moxifloxacin Allergy Unknown Unknown Verified 04/21/24 09:33 cephalexin AdvReac Intermediate Vomiting Verified 04/21/24 09:33 doxycycline AdvReac Intermediate TEARS UP Verified 04/21/24 09:33 STOMACH- CAUSES ALOT OF PAIN hydrocodone AdvReac Intermediate vomiting, Verified 04/21/24 09:33 headache nitrofurantoin (From AdvReac Intermediate Vomiting Verified 04/21/24 09:33 Macrobid) albuterol AdvReac Mild HEADACHE,NA Verified 04/21/24 09:33 USEA bee venom protein (honey bee) AdvReac Mild swelling, Verified 04/21/24 09:33 vomiting calcium AdvReac Mild GI upset Verified 04/21/24 09:33 fluconazole AdvReac Mild Headache Verified 04/21/24 09:33 Current Medication List - Last Reconciled 04/21/24 by Nina Mendoza alprazolam 0.25 mg tablet 0.25 mg PO BID PRN 30 days cholecalciferol (vitamin D3) 50 mcg (2,000 unit) capsule 50 mcg PO DAILY denosumab 60 mg/mL subcutaneous syringe (Prolia) 60 mg subcut [id number] fluticasone propionate 50 mcg/actuation nasal spray,suspension 1 spray Nostril-both DAILY loratadine 10 mg tablet 10 mg PO DAILY miconazole nitrate 2 % topical cream 1 applic topical BEDTIME 7 days multivitamin 1 tab PO DAILY nystatin 100,000 [...] venlafaxine 37.5 mg capsule,extended release 24 hr 75 mg (2 x 37.5 mg) PO DAILY 90 days NS Nurse's Note: started yesterday with nausea, then had to get up freq last night, xl1wlwm just little at time, haslow back pain and low abd pain. [facility] Medical History Acute UTI (urinary tract infection) Congenital ureteropelvic [...] Alcohol abuse Mother Elevated cholesterol Alcohol abuse Urgent Care Social History Social History History [...] HPI Comments History of Present Illness Details The patient presents c/o frequent urination, occurring every 15 minutesthroughout the night. Sx started yesterday evening. New symptom of nausea began this morning upon waking up. Denies fever, hematuria, or lower abd pain. Hx of recurrent UTIs. She feels infections never completely clear up. Currently under care of urologist, who has informed patient that recurrent infections are to be expected. Physical Exam Constitutional Common normals: no acute [...] rate Rhythm: regular rhythm GI Common normals: Normal to inspection, nondistended, normoactive bowel sounds present, Soft to palpation, non-tender and no masses Palpation: Soft to palpation Common normals: no CVA tenderness Bladder/kidney exam: no CVA tenderness Back & Pelvis Common normals: no CVA tenderness Neuro Common normals: alert and patient oriented x3 Sensorium/orientation: Yes alert Assessment & Plan Assessment & Plan (1) UTI (urinary tract infection): Code(s): N39.0 - Urinary tract infection, site not specified Qualifiers: Urinary tract infection type: acute cystitis Hematuria presence: with hematuria Qualified Code(s): N30.01 - Acute cystitis with hematuria Plan: - Assessment: Patient reports frequent urination, starting yesterday evening, with a history of recurrent UTIs. No fever, hematuria, or significant pain reported. - Plan: * Send urine for culture and sensitivity testing to ensure appropriate antibiotic treatment. * Start Macrobid given results from last urine culture. GFR WNL on last check * Instruct the patient to complete the full course of antibiotics. * Order a test of cure to be completed after finishing the antibiotic course given patient's concern that infections aren't clearing * Instruct the patient to visit the lab at the hospital for the test when convenient after returning from out of town. * Contact the patient with results and consider further evaluation and treatment if infection is not cleared. Plan Symptomatic treatment discussed. Patient's vitals are stable and patient is nontoxic appearing. Agreeable with plan and discharge home. Standard, Ed, red flag warnings given. All questions were answered during the encounter and the patient/caregiver verbalized understandingand was in agreement with plan of care.? The patient was instructed to call if worsening or not improving.? The patient was counseledregarding impressions, instructions for management and importance of compliance with treatment. Nursing notes and assessments: Reviewed and agree. Orders: Orders AM.Urinalysis Today R35.0 - Frequency of micturition Urine Culture Today R30.0 - Dysuria UA with Reflex Culture 04/27/24 N39.0 - Urinary tract infection, site not specified Medications: New nitrofurantoin monohyd/m-cryst 100 mg (Macrobid) must administer with a meal/food 100 mg PO Q12H 5 days 10 caps 0RF Patient Instructions: Take antibiotics as prescribed until gone Push fluids Use tylenol (maximum daily dose 4,000 mg/day) and ibuprofen (maximum 3,200 mg/day) alternating every 3 hours as needed for fever/pain. We will call with urine culture results when available Complete test of cure after completion of antibiotics UTI Prevention: * Urinate after sexual activity * Stay well hydrated * Take showers instead of baths * Minimize douching, sprays, or powders in the genital area * Wear loose fitting under garments * Wipe front to back Return sooner for new or worsening symptoms: high fever, change in mentation, SOB, difficulty breathing, worsening urinary symptoms. If no improvement in 2-3 days, return for reevaluation or follow up with PCP. Results UA Results Urine Apperance cloudy Last Edit by Nina Mendoza on 04/21/24 09:37 Urine Color Yellow Last Edit by Nina Mendoza on 04/21/24 09:37 Urine Glucose Negative Last Edit by Nina Mendoza on 04/21/24 09:37 Urine Bilirubin Negative Last Edit by Nina Mendoza on 04/21/24 09:37 Urine Ketones Negative Last Edit by Nina Mendoza on 04/21/24 09:[address] 1.020 Last Edit by Nina Mendoza on 04/21/24 09:3 7 Urine Blood Moderate Last Edit by Nina Mendoza on 04/21/24 09:37 Urine pH 7.0 Last Edit by Nina Mendoza on 04/21/24 09:37 Urine Protein +++ Last Edit by Nina Mendoza on 04/21/24 09:37 Urine Urobilinogen 1 Last Edit by Nina Mendoza on 04/21/24 09:37 Urine Nitrite Positive Last Edit by Nina Mendoza on 04/21/24 09:37 Urine Leukocytes Large Last Edit by Nina Mendoza on 04/21/24 09:37 Supplemental Info UA positive for blood, leuks, nitrites. Urine culture pending Dictated By: CHIKIS Velasco 04/21/2433 Signed By: 04/21/24 1013 Cosigned By (if applicable): [id number] cc: CHIKIS Velasco [facility] [employer] [id number] Evaluation note* Diagnosis Onset Date Resolution Status Admit Date Dry eye syndrome acute March 30, 2024 7:52am MDD (major depressive disorder), recurrent severe, without psychosis acute March 30, 2024 7:52am Nausea acute March 30, 2024 7:52am Anxiety chronic March 30, 2024 7:52am Congenital ureteropelvic junction obstruction chronic February 7:52am Gastroparesis february 7:52am Vulvovaginal discomfort noneactive O ctober 2023 7:52am Vulvovaginal candidiasis noneactive March 30, 2024 7:52am UTI (urinary tract infection) noneac tive April 21, 2024 9:07am MDD (major depressive disorder), recurrent severe, without psychosis acute May 18, 2024 10:35am Anxiety chronic May 18, 2024 10:35am Congenital ureteropelvic junction obstruction chronic May 182023 10:35am Low back pain chronic May 182023 10:35am Recurrent UTI (urinary tract infection) noneactive May 18, 2 024 10:[address] [facility] Work Phone: [phone] Evaluation note* Diagnosis Onset Date Resolution Status Admit Date Dry eye syndrome acute March 30, 2024 7:52am MDD (major depressive disorder), recurrent severe, without psychosis acute March 30, 2024 7:52am Nausea acute March 30, 2024 7:52am Anxiety chronic March 30, 2024 7:52am Congenital ureteropelvic junction obstruction chronic February 7:52am Gastroparesis february 7:52am Vulvovaginal discomfort noneactive O ctober 2023 7:52am Vulvovaginal candidiasis noneactive March 30, 2024 7:52am UTI (urinary tract infection) noneac tive April 21, 2024 9:07am MDD (major depressive disorder), recurrent severe, without psychosis acute May 18, 2024 10:35am Anxiety chronic May 18, 2024 10:35am Congenital ureteropelvic junction obstruction chronic May 182023 10:35am Low back pain chronic May 182023 10:35am Recurrent UTI (urinary tract infection) noneactive May 18, 2 024 10:35am Congenital ureteropelvic junction obstruction chronic May 9:52am Recurrent UTI chronic May 9:52am Right inguinal pain noneactive 2024 9:52am Viral URI noneactive June 12, 2024 9:52am [facility] Work Phone: [phone] [facility] [address] [place] [address] Office Visit Report Signed Patient Name: Sherry Ash Medical Rec ord #: [id number] Date of : 1945 Account #: [id number] Age/Sex: 78 / F Date of Servi ce: 03/30/24 Location: [facility] Primary Care [facility] Attending physician: Nicole Garcia [...] mg/mL subcutaneous syringe (Prolia) 60 mg subcut [id number] fluticasone propionate 50 mcg/actuation nasal spray,suspension 1 [...] GI virus. Pt states she went to [facility] in July, she was prescribed Linzess that made her sick. She does not have a f/u visit. [facility] Medical History (Updated 03/30/24 @ 08:49 by [...] up to 150 mg daily. Does state latelyshe had an argument with her son and [...] Also used as needed Reglan previously with [facility] earlier this year, but was trying to only use very sparingly/not long-term due to side effect profile; states she does have some ofthis leftover still. Still has raw feeling in region but denies abnormal vaginal discharge or itching. No fevers/nonew symptoms, but also states no improvement in [...] Hurtado; advised as needed follow-up for further significantUTI-like symptoms. PMH of bilateral congenital ureteropelvic junction [...] prior vaginal swab 10/14/2023 which did show Laly species but was negative for BV, trichomonas, C glabrata. Note last saw [facility] GI May 2023, then followed up with [facility] for GI in July 2023 [will request [facility] record]; states was trialed on Linzess but discontinued due toside effects. Review of Systems Narrative Constitutional: No [...] up on the Effexor as well and thatcontrolling her anxiety/depressionbetter may also help with her [...] discussed for next 1 to 2 days okayto take some of her remaining Reglan but not to use long- term as it does have some interactions andside effects that can worsen/interactwith her other medications; also discussed utilizing as neededOTC Gas-X/simethicone for gas pain -Discussed increasing Effexor for mood as above which may also help with GI symptoms if GI symptomsare partially aggravated by mood chronic dry eye -Recommending avoiding use of Visine, especially Visine redness relief due to risk of rebound redness/symptoms. -Recommended using artificial tears such as TheraTears or Systane regularly, discussed may have dryeyes long-term due to prior eye surgery and may benefit from using these more consistently -Discussed if increased itchiness of eyes can try antihistamine eyedrops again, but if not helpful in the past can first instead focus on the artificial tears for dry eye rather than allergies === Follow-up: Patient already has previously scheduled follow-up for 05/18/2024, billywill keep this for now as this will [...] Patient Instructions: Eye drops to look for [id number]: - for allergies causing red or itchy eyes, try Pataday or Zaditor (these are anti-histamine eye drops) - for dry eyes, try artifical tears (such as Thera Tears or any affordable over the counter genericoption; e.g. the systane) - generally avoid use of Visine Clear Eyes/Redness relief (this contains decongestant tetryzoline) as although it can decrease redness at first, it tendsto cause rebound issues/redness with frequent use after stopping use. However, Visine brand may make artificial tears and other products as well(that do NOT contain a decongestant) that may be a good option for dry eyes. Dictated By: Nicole Garcia DO 03/30/24 0756 Signed By: 03/30/24 0852 Cosigned By (if applicable): [id number] cc: Nicole Garcia DO [facility], [id number] [place] [address] Emergency Department Note Signed Patient Name: Sherry Ash [facility] Record #: [id number] Date of : 1945 Age/Sex: 78 / [...] been going on since this past Wednesday. Shehas been nauseated but has not vomited. She has had chills but denies fever. She complains of being raw in her genital area. She has a history of recurrent urinary tract infections because of congen itally small ureters according to her urologist. She has had stents in but it was not able to tolerate them for more than 3 weeks. 2 weeks ago she was placed on antibiotics because of a urinary tractinfection. She completed the course, 5 days, of [...] denosumab 60 mg/mL subcutaneous 60 mg subcut [id number] 08/26/23 03/27/24 History syringe (Prolia) rosuvastatin 40 [...] History History Provided by: Patient Preferred Language: Kazakh Language Assistance Offered: Not Applicable Usual Living [...] Normal oral and palatal mucosa present Head andscalp: normocephalic and atraumatic Mouth: Normal oral and [...] CAT scan of her abdomen pelvis. Septic workuphas been initiated because of recurrent urinary tract [...] % Lymph % (Auto) 24 (20-35) % Crockett % (Auto) 6 (4-12) % Eos % (Auto) 0 L (2-5) % Baso % (Auto) 1 (0-1) % Lymph # (Auto) 1.5 (0.5-3.5) 10'3/uL Crockett # (Auto) 0.4 (0.2-0.8) 10'3/uL Eos # [...] (CLEAR) Urine pH 8.0 (5.5-8.0) Ur Specific Street 1.020 (1.005-1.030) Urine Protein Negative (Negative) mg/dL [...] - Pending Blood Imaging Data Radiologist's impression: [place] [id number] [place] [address] CT Scan Report Signed Patient Name: Sherry [...] Mihir Myers MD Signed By: 03/27/24 1037 Procedures Procedural Sedation Performed Procedural [...] life or organthreatening I feel that outpatient managementwith supportive care is appropriate. Supportive care instructions [...] Prolia 60 mg/mL syringe 60 mg subcut [id number] triamcinolone acetonide 0.1 % cream 1 applic [...] Hugh Julian MD 03/27/24 0957 Signed By: 03/27/24 1126 Cosigned By (if applicable): [id number] cc: [facility]10-28-2024 Radiology Diagnostic study [address] [address] [address] Scan Report Signed Patient Name: Sherry Ash Or dical Record #: [id number] Date of : 1945 Accoun t #:[id number] Age/Sex: 78 / F Location: ED Attending [...] 03/27/24 1037 DD/ 1034 TD/TT: 03/27/24 1034 Pilot Fuel Engineer: NATALIE Exam/Order Verified? Y Exam Explained to Patient/Family? Y Was Patient Shielded?N Is Patient ? N Consent Form Completed? Hx Last Menstrual Period: Does Patient have a Diabetic Device? No Diabetic Device Type: Was the Diabetic Device Removed? If NO: was Removal Consent form completed? Patient was informed of radiation exposure prior to scan? Verified by Technologist:[id number] Comment: [id number] cc: DO Hugh Bustos MD [facility] Work Phone: [phone]) 850-918709-30-2024 Progress [facility] [address] [place] [address] Office Visit Report Signed Patient Name: Sherry Ash [facility] Rec ord #: [id number] Date of : 1945 Account #: [id number] Age/Sex: 78 / F Date of Servi ce: 02/28/24 Location: [facility] Orthopedics Attending physician: Joy DIOP HPI HPI [...] has been under the care of a vascular tech and her PCP and has been taking vitamin C withbioflavonoids and rosehips to control the psoriasis. She has a history of 2 fragility fractures. Secondary causes of osteoporosis include premature menopause after hysterectomy with bilateral salpingo- oophorectomy. No family history of fracture. She works [...] to track changes b. Follow up with vascular tech or PCP if worsens or no improvement [...] mg/mL subcutaneous syringe (Prolia) 60 mg subcut [id number] fluticasone propionate 50 mcg/actuation nasal spray,suspension 1 [...] syringe Performing Provider: CHIKIS Conner Performing Location: [facility] Orthopedics Administered by: CHIKIS Conner on 02/28/24 10:25 Dose Route Admin Location Dispensed Lot Number Expiration Date NDC Multi Care Technician 60 mg subcut left deltoid 1 mL [id number] 10/28/25 43227-980-00 AMGEN Dictated By: CHIKIS Conner 02/28/24 1017 Signed By: 02/28/24 1103 Cosigned By (if applicable): [id number] cc: DO Joy Bustos PA [facility]09-19-2024 Evaluation note* Diagnosis Onset Date Resolution Status Admit Date Anxiety chronic January 2:22pm Gastroparesis chronic January 292023 2:22pm GERD (gastroesophageal reflu x disease) chronic February 17, 2024 2:22pm Dysuria noneactive January 2:22pm Abdominal bloating noneactive 2023 2:22pm Postmenopausal acute February 28, 2024 10:08am Osteoporosis chronic February 272023 10:08am Dry eye syndrome acute March 30, 2024 7:52am MDD (major depressive disorder), recurrent severe, without psychosis acute March 30, 2024 7:52am Nausea acute March 30, 2024 7:52am Anxiety chronic March 30, 2024 7:52am Congenital ureteropelvic junction obstruction chronic February 7:52am Gastroparesis chronic February 7:52am Vulvovaginal discomfort noneactive O ctober 2023 7:52am Vulvovaginal candidiasis noneactive March 30, 2024 7:52am [facility] Work Phone: [phone] Evaluation note* Diagnosis Onset Date Resolution Status Admit Date Anxiety chronic January 2:22pm Gastroparesis chronic January 292023 2:22pm GERD (gastroesophageal reflu x disease) chronic February 17, 2024 2:22pm Dysuria noneactive January 2:22pm Abdominal bloating noneactive 2023 2:22pm Postmenopausal acute February 28, 2024 10:08am Osteoporosis chronic February 272023 10:08am Dry eye syndrome acute March 30, 2024 7:52am MDD (major depressive disorder), recurrent severe, without psychosis acute March 30, 2024 7:52am Nausea acute March 30, 2024 7:52am Anxiety chronic March 30, 2024 7:52am Congenital ureteropelvic junction obstruction chronic February 7:52am Gastroparesis chronic February 7:52am Vulvovaginal discomfort noneactive O ctober 2023 7:52am Vulvovaginal candidiasis noneactive March 30, 2024 7:52am UTI (urinary tract infection) noneac tive April 21, 2024 9:07am [facility] Work Phone: [phone] Evaluation note* Diagnosis Onset Date Resolution Status [...] January 2:22pm Abdominal bloating noneactive 2023 2:22pm [facility] [employer] [facility] Work Phone: [phone] Evaluation note* Diagnosis Onset Date Resolution Status [...] 2024 10:08am Osteoporosis chronic February 272023 10:08am [facility] Work Phone: [phone]) 627-856208-18-2024 Radiology Diagnostic study note[address] [place] [address] CT Scan Report Signed Patient Name: Sherry Ash dical Record #: [id number] Date of : 1945 Accoun t #:[id number] Age/Sex: 78 / F Location: ED Attending [...] By: Jose Daniel Carlin MD Signed By: 01/16/2459 DD/ TD/TT: 01/16/24855 Pilot Fuel Engineer: [id number] Exam/Order Verified? Y Exam Explained to Patient/Family? Y Was Patient Shielded?N Is Patient ? Consent Form Completed? Hx Last Menstrual Period: Does Patient have a Diabetic Device? No Diabetic Device Type: Was the Diabetic Device Removed? If NO: was Removal Consent form completed? Patient was informed of radiation exposure prior to scan? Verified by Technologist:[id number] Comment: [id number] cc: Meena Dallas, DO Nicole Garcia, DO [facility]07-05-2024 Evaluation note* Diagnosis Onset Date Resolution Status [...] January 2:22pm Abdominal bloating noneactive 2023 2:22pm [facility] Work Phone: [phone] Evaluation note* Diagnosis Onset Date Resolution Status [...] yeast noneacti ve December 03, 2023 10:55am [facility] Work Phone: [phone] Miscellaneous Notes* Telephone Encounter - Pablo Messer RN - 08/24/2023 11:23 AM EDT Called patient, confirmed identity. Talked with patient , Gave patient information to contact pharmacist re other medication same class , covered by her insurance and less expensive. May also use Apps or coupons for medications on good Rx or other websites.Can contact quality improvement coordinator to see if she is eligible for [...] us know if any problems or concerns [facility] [phone] [facility] Miscellaneous Notes* Telephone Encounter - Gin Nichols RN - 08/20/2023 9:09 AM EDT Call placed to patient. Left message to return call to discuss concerns. Call back number provided. documented in this [facility]-2024 NoteHNO ID: [id number] Author: MIHIR AWAN DO Service: ? Author Type: Physician Type: Progress Notes Filed: 08/19/2023 14:58 Note Text:[facility]03-21-2024 History of Present illness Narrative* Mihir Awan DO - 08/19/2023 2:57 PM EDT Images from the original note were not included. documented in this encounterT[facility]03-[facility]-2024 NoteHNO ID: [id number] Author: JOSE ROBLES RT(R) Service: Radiology Author [...] PATIENT PRESENTS WITH AN IMPLANTABLE OR ATTACHED PIERCE AND SHAVE PRESS OPERATOR: No RADIOLOGY DEPARTMENT: General X-ray: Exam(s) Completed: Abdomen X-Ray: Abdomen PERIPHERAL IV DATA: Not applicable SIGNED BY: RT Connor(R) August 16, 2023 2:43 [facility]03-18-2024 History of Present illness Narrative* Jose [...] PATIENT PRESENTS WITH AN IMPLANTABLE OR ATTACHED PIERCE AND SHAVE PRESS OPERATOR: No RADIOLOGY DEPARTMENT: General X-ray: Exam(s) Completed: Abdomen X-Ray: Abdomen PERIPHERAL IV DATA: Not applicable SIGNED BY: RT Connor(R) August 16, 2023 2:43 PM documented in this encounterT[facility]03-[facility]-2024 NoteHNO ID: [id number] Author: ANNABEL BANKS, DO Service: ? Author Type: Physician Type: Progress Notes Filed: 08/16/2023 18:53 Note Text: [facility] [place] Gastroparesis/Dysmotility Consultation SERVICE DATE: 08/16/2023 SERVICE TIME: 1:26 PM PRIMARY CARE PHYSICIAN: No primary care provider on file. Taty Noble MD [address] [address] My final recommendations will be communicated back [...] in detail. Based on this discussion, Sherry Mihir wishes to proceed with continued medical therapies [...] were reviewed. NAME: Sherry Ash CLINIC NO: [id number] DATE OF SERVICE: August 16, 2023 This [...] delay worker Gastric Emptyi (more content not included)...[facility] 08-16-2023 NoteHNO ID: [id number] Author: MIHIR AWAN, DO Service: ? Author [...] Medications - Does the patient see a painter set for chronic abdominal pain?No - Is the [...] - Has the patient met with a sprinkler inspector for diet recommendations with Gastroparesis? No - [...] neoplasm. The prox (more content not included)... [facility]03-18-2024 Nurse Note* Irma Crawley MA - 08/16/2023 1:37 PM EDT What is the reason for your visit today? Gastroparesis Who is your referring physician? Dr Awan Are you having poor oral intake? NO Have you had unintentional weight loss of 15 lbs/7 Kg in the last 3-6 months? NO Bowels: constipated Wound: n/a Temperature: No Drains: No documented in this encounterT[facility]03-[facility]-2024 History of Present illness Narrative* Annabel Banks DO - 08/16/2023 1:26 PM EDT Images from the original note were not included. [facility] [place] Gastroparesis/Dysmotility Consultation SERVICE DATE: 08/16/2023 SERVICE TIME: 1:26 PM PRIMARY CARE PHYSICIAN: No primary care provider on file. Taty Noble MD [address] [address] My final recommendations will be communicated back [...] were reviewed. NAME: Sherry Ash CLINIC NO: [id number] DATE OF SERVICE: August 16, 2023 This [...] No weight loss, malaise or fevers. Neuro: [place] Palsy (resolved) Respiratory: No history of current cough or dyspnea, or pneumonia in the past 6 weeks. No history of respiratory/pulmonary symptoms or problems Cardiovascular: Positive for: HLD GI: See HPI : Congenital malformation MEDICAL CODER: Negative for abnormal vaginal bleeding, abnormal vaginal [...] with more than 50% of the total [id number] time of the visit in counseling / coordination of care. documented in this encounterT[facility]03-18-2024 Nurse Note* Cassia Ching MA - 08/16/2023 1:01 PM EDT ELECTROGASTROGRAPY W/ TEST Operation / Procedure performed documented in this encounterT[facility]03-[facility]24 History of Present illness Narrative* Mihir Awan [...] Medications - Does the patient see a painter set for chronic abdominal pain?No - Is the [...] - Has the patient met with a sprinkler inspector for diet recommendations with Gastroparesis? No - [...] hernia. Slight reflux. Gastric Emptying Study 05/06/2021 [facility] Findings: Gastric retention: 94% at 30 min; 82% at 1 hour; 75% at 2 hours, 57% at 3 hours, and 25% at 4 hours. Impression: Markedly delayed gastric emptying for solid phase of examination. CT Abd/Pelvis 04/12/2023 [facility] Impression: Chronic bilateral severe hydronephrosis. This has [...] No history of dysuria, frequency or incontinence MEDICAL CODER: Negative for abnormal vaginal bleeding, abnormal vaginal [...] Mihir Awan DO 08/11/2023 documented in this encounterT[facility]03-14-2024 Miscellaneous Notes* Telephone Encounter - Marcos Ramirez [...] RN August 12, 2023 documented in this encounterT[facility]11-13-2023 Progress note Author Ricky Singh [facility] April 12, 2023 10:54am Note Date/Time April 12, 2023 9:35am [place] [address] Emergency Department Note Signed Patient Name: Sherry Ash [facility] Record #: [id number] Date of : 1945 Age/Sex: 77 / [...] History History Provided by: Patient Preferred Language: Kazakh Language Assistance Offered: Not Applicable Usual Living [...] Lymph % (Auto) 13 L (20-35) % [place]ckett % (Auto) 5 (4-12) % Eos % (Auto) 2 (2-5) % Baso % (Auto) 1 (0-1) % Lymph # (Auto) 0.6 (0.5-3.5) 10'3/uL [place] # (Auto) 0.2 (0.2-0.8) 10'3/uL Eos # [...] (CLEAR) Urine pH 6.0 (5.5-8.0) Ur Specific Street 1.020 (1.005-1.030) Urine Protein 30 (1+) A [...] MD> 04/12/23 1054 Cosigned By (if applicable): [id number] cc: [facility] Work Phone: [phone] Evaluation note* Author Myrna Alvarenga [facility] Authored November 13, 2021 4:14 pm Labs have been ordered. I wo uld like patient to follow-up in approximately 2 months with her new care provider in the office. She has elected to start seeing Dr. Baez. Refill of Xanax given today. [facility] Work Phone: Evaluation note* Diagnosis Onset Date Resolution Status Atrophic vaginitis noneactiv e Lower back pain noneactive Lower abdominal pain noneact melia Osteoporosis acute Postmenopausal acute Diverticulosis acute Gastroparesis acute Hiatal hernia acute Hypothyroidism acute GERD (gastroesophageal reflux disease) chronic [facility] [employer] [facility] Work Phone: Evaluation note* Diagnosis Onset Date Resolution Status Osteoporosis acute Postmenopausal acute Diverticulosis acute Gastroparesis acute Hiatal hernia acute Hypothyroidism acute GERD (gastroesophageal reflux disease) chronic [facility] Work Phone: Evaluation note* Diagnosis Onset Date Resolution Status Osteoporosis acute Postmenopausal acute Diverticulosis acute Gastroparesis acute Hiatal hernia acute Hypothyroidism acute GERD (gastroesophageal reflux disease) chronic Chronic pain of left ankle a cute Memory change acute Anxiety chronic [facility] [employer] [facility] Work Phone: Evaluation note* Diagnosis Onset Date Resolution Status Diverticulosis acute Gastroparesis acute Hiatal hernia acute Hypothyroidism acute GERD (gastroesophageal reflux disease) chronic Chronic pain of left ankle a cute Memory change acute Anxiety chronic [facility] Work Phone: Evaluation note* Diagnosis Onset Date Resolution Status Diverticulosis acute Gastroparesis acute Hiatal hernia acute Hypothyroidism acute GERD (gastroesophageal reflux disease) chronic Chronic pain of left ankle a cute Memory change acute Anxiety chronic Memory change acute Anxiety chronic [facility] [employer] [facility] Work Phone: Evaluation note* Diagnosis Onset Date Resolution Status Chronic pain of left ankle a cute Memory change acute Anxiety chronic Memory change acute Anxiety chronic GERD (gastroesophageal reflux disease) chronic [facility] [employer] [facility] Work Phone: Evaluation note* Diagnosis Onset Date Resolution Status Chronic pain of left ankle a cute Memory change acute Anxiety chronic Memory change acute Anxiety chronic GERD (gastroesophageal reflux disease) chronic Breast cancer screening by mammogram acute Dark stools acute Gastroparesis acute GERD (gastroesophageal reflux disease) chronic [facility] [employer] [facility] Work Phone: Evaluation note* Diagnosis Onset Date Resolution Status GERD (gastroesophageal reflux disease) chronic Breast cancer screening by mammogram acute Dark stools acute Gastroparesis acute GERD (gastroesophageal reflux disease) chronic Dysuria noneactive Osteoporosis acute Postmenopausal acute [facility] Work Phone: Evaluation note* Diagnosis Onset Date Resolution Status GERD (gastroesophageal reflux disease) chronic Breast cancer screening by mammogram acute Dark stools acute Gastroparesis acute GERD (gastroesophageal reflux disease) chronic Dysuria noneactive Osteoporosis acute Postmenopausal acute Gastroparesis acute [facility] [employer] [facility] Work Phone: Evaluation note* Diagnosis Onset Date Resolution Status GERD (gastroesophageal reflux disease) chronic Breast cancer screening by mammogram acute Gastroparesis acute GERD (gastroesophageal reflux disease) chronic Dark stools resolved Dysuria noneactive Osteoporosis acute Postmenopausal acute Gastroparesis acute Gastroparesis acute Hypothyroidism acute Anxiety chronic [facility] Work Phone: Evaluation note* Diagnosis Onset Date Resolution Status Breast cancer screening by mammogram acute Gastroparesis acute GERD (gastroesophageal reflux disease) chronic Dark stools resolved Dysuria noneactive Osteoporosis acute Postmenopausal acute Gastroparesis acute Gastroparesis acute Hypothyroidism acute Anxiety chronic Encounter for screening for diabetes mellitus acute Granulomatous disease acute Hydronephrosis acute Urinary tract infection acut e [facility] Work Phone: Evaluation note* Diagnosis Onset Date Resolution Status Osteoporosis acute Postmenopausal acute Gastroparesis acute Gastroparesis acute Hypothyroidism acute Anxiety chronic Encounter for screening for diabetes mellitus acute Granulomatous disease acute Hydronephrosis acute Urinary tract infection acut e Congenital ureteropelvic junction obstruction acute Urinary tract infection acut e Dysuria acute Gastroparesis acute [facility] Work Phone: Evaluation note* Diagnosis Onset Date Resolution Status Encounter for screening for diabetes mellitus acute Granulomatous disease acute Hydronephrosis acute Urinary tract infection acut e Congenital ureteropelvic junction obstruction acute Urinary tract infection acut e Dysuria acute Gastroparesis acute Acute sinusitis noneactive Bronchitis noneactive Dysuria acute [facility] Work Phone: Evaluation note* Diagnosis Onset Date Resolution Status Dysuria acute Gastroparesis acute Acute sinusitis noneactive Bronchitis noneactive Dysuria acute Episcleritis acute Low back pain acute Recurrent UTI acute [facility] Work Phone: Evaluation note* Diagnosis Onset Date Resolution Status Acute sinusitis noneactive Bronchitis noneactive Dysuria acute Episcleritis acute Low back pain acute Recurrent UTI acute [facility] Work Phone: Evaluation note* Diagnosis Onset Date Resolution Status Acute sinusitis noneactive Bronchitis noneactive Episcleritis acute Low back pain chronic Recurrent UTI chronic Dysuria resolved Urinary frequency noneactive Normocytic anemia acute Anxiety chronic Congenital ureteropelvic junction obstruction chronic Hypothyroidism chronic Recurrent UTI chronic [facility] Work Phone: Evaluation note* Diagnosis Onset Date Resolution Status Episcleritis acute Low back pain chronic Recurrent UTI chronic Dysuria resolved Urinary frequency noneactive Normocytic anemia acute Anxiety chronic Congenital ureteropelvic junction obstruction chronic Hypothyroidism chronic Recurrent UTI chronic Abnormal renal function acut e Allergic conjunctivitis acut e Anxiety chronic 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 Gastroparesis chronic Hydronephrosis chronic [facility] [employer] [facility] Work Phone: Evaluation note* Diagnosis Onset Date Resolution Status Episcleritis acute Low back pain chronic Recurrent UTI chronic Dysuria resolved Urinary frequency noneactive Normocytic anemia acute Anxiety chronic Congenital ureteropelvic junction obstruction chronic Hypothyroidism chronic Recurrent UTI chronic Abnormal renal function acut e Allergic conjunctivitis acut e Anxiety chronic 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 Gastroparesis chronic Hydronephrosis chronic Anxiety chronic [facility] [employer] [facility] Work Phone: Evaluation note* Diagnosis Onset Date Resolution Status Urinary frequency noneactive Normocytic anemia acute Anxiety chronic Congenital ureteropelvic junction obstruction chronic Hypothyroidism chronic Recurrent UTI chronic Abnormal renal function acut e Allergic conjunctivitis acut e Anxiety chronic 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 Gastroparesis chronic Hydronephrosis chronic Anxiety chronic Postmenopausal acute Osteoporosis chronic [facility] [employer] [facility] Work Phone: Evaluation note* Diagnosis Onset Date Resolution Status Abnormal renal function acut e Allergic conjunctivitis acut e Anxiety chronic 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 Gastroparesis chronic Hydronephrosis chronic Anxiety chronic Postmenopausal acute Osteoporosis chronic [facility] Work Phone: Evaluation note* Diagnosis Onset Date Resolution Status Dry eyes, bilateral acute MDD (major depressive disord er), recurrent severe, without psychosis acute Anxiety chronic Gastroparesis chronic GERD (gastroesophageal reflux disease) chronic Diffuse abdominal pain nonea ctive [facility] Work Phone: Evaluation note* Diagnosis Onset Date Resolution Status Dry eyes, bilateral acute MDD (major depressive disord er), recurrent severe, without psychosis acute Anxiety chronic Gastroparesis chronic GERD (gastroesophageal reflux disease) chronic Diffuse abdominal pain nonea ctive Dysuria noneactive Constipation noneactive [facility] [employer] [facility] Work Phone: Evaluation note* Diagnosis Onset Date Resolution Status Dysuria noneactive Constipation noneactive UTI (urinary tract infection) noneactive [facility] [employer] [facility] Work Phone: Evaluation note* Diagnosis Onset Date Resolution Status Dysuria noneactive Constipation noneactive Anxiety chronic Gastroparesis chronic UTI (urinary tract infection) noneactive [facility] Work Phone: [phone] note* Diagnosis Gastroparesis- Primary documented [facility]* Diagnosis Gastroparesis- Primary Chronic idiopathic constipation Unspecified constipation Irritable bowel syndrome with constipation Irritable bowel syndrome documented in this encounter [facility] note* Diagnosis Gastroparesis- Primary Chronic idiopathic constipation Unspecified constipation documented in this encounter [facility] note* Diagnosis Chronic idiopathic constipation Unspecified constipation documented in this encounter [facility] note* Diagnosis Gastroparesis- Primary documented in this encounter [facility] note* Diagnosis Onset Date Resolution Status Dysuria noneactive Constipation noneactive Anxiety chronic Gastroparesis chronic UTI (urinary tract infection) noneactive Postmenopausal acute Osteoporosis chronic [facility] [employer] Work Phone: [phone]-aluation note* Diagnosis Onset Date Resolution Status Dysuria noneactive Constipation noneactive Anxiety chronic Gastroparesis chronic UTI (urinary tract infection) noneactive Postmenopausal acute Osteoporosis chronic Yeast infection involving th e vagina and surrounding area noneactive [employer] Work Phone: [phone]-aluation note* Diagnosis Onset Date Resolution Status Dysuria noneactive Constipation noneactive Anxiety chronic Gastroparesis chronic UTI (urinary tract infection) noneactive Postmenopausal acute Osteoporosis chronic Acute vaginitis noneactive Yeast infection involving th e vagina and surrounding area noneactive Bloating noneactive Constipation noneactive [facility] Work Phone: Evaluation note* Diagnosis Onset Date Resolution Status Postmenopausal acute Osteoporosis chronic Acute vaginitis noneactive Yeast infection involving th e vagina and surrounding area noneactive Bloating noneactive Constipation noneactive [employer] Work Phone: [phone]-aluation note* Diagnosis Onset Date Resolution Status Acute vaginitis noneactive Yeast infection involving th e vagina and surrounding area noneactive Bloating noneactive Constipation noneactive Chronic idiopathic constipation acute MDD (major depressive disord er), recurrent severe, without psychosis acute Anxiety chronic Yeast dermatitis noneactive [employer] Work Phone: Evaluation note* Diagnosis Onset Date [...] infection) noneactive Vulvovaginitis due to yeast noneactive [facility] Work Phone: Evaluation noteNo assessment information available [facility] Work Phone: Evaluation note* Diagnosis Onset Date Resolution Status Postmenopausal acute Osteoporosis chronic Gastroparesis chronic [facility] [employer] [facility] Work Phone: Hospital Discharge instructions Additional Instructions [...] new concerns develop [facility] Work [facility]: Hospital Discharge instructions Additional Instructions Increase fluids and take the antibiotic as prescribed.[facility] Work Phone: Hospital Discharge instructions Additional Instructions We evaluated you for your symptoms. We found you have a urinary tract infection. Please take your antibiotics as prescribed. Please follow close with your primary care doctor. Please return to the emergency department if you develop any worsening or concerning symptoms.[facility] Work Phone: Hospital Discharge instructionsAmbulatory Orders* Referral Urology Location: None Selected [facility] [employer] [facility] Work Phone: Progress note Author Andra Campbell [facility] [employer] [facility] June 11, 2022 10:18am Note Date/Time June 11, 2022 1 0:13am [facility] [place] [address] Office Visit Report Signed Patient Name: Sherry Ash [facility] Rec ord #: [id number] Date of : 1945 Account #: [id number] Age/Sex: 76 / F Date of Servi ce: 06/11/22 Location: [facility] Cardiology Attending physician: Andra Campbell DO Intake Vital Signs 06/11/22 10:10 Height 5 ft 2 in Weight 69.003 kg BMI 27.8 BP 98/55 L BP Location Right Brachial BP Position Sitting BP Cuff Size Adult BP Source Automatic Cuff Pulse 63 Pulse Source Monitor Intake Visit Reasons: 6 month f/u Director Of Sustainable Design Required: No Accompanied by: Self / Same [...] DO> 06/11/22 1018 Cosigned By (if applicable): [id number] cc: DO Nathanael Wheeler DO [facility] [employer] Work Phone: Progress note Author Ricky Singh [facility] August 24, 2022 3:59pm Note Date/Time August 24, 2022 3:5 9pm [place] [id number] [facility] [place] [id number] Emergency Department Note Signed Patient Name: Sherry Ash [facility] Record #: [id number] Date of : 1945 Age/Sex: 76 / F Location: ED Attending physician: SPECIAL DISTRIBUTION CLERK/PA Attestation MDM Narrative Date of Visit: 08/24/22 Chief Complaint: Abdominal Pain Medical decision making narrative: I performed a history and physical examination of the patient and discussed management with the SPECIAL DISTRIBUTION CLERK/PA. I reviewed the SPECIAL DISTRIBUTION CLERK/PA's note and agree with the documented findings [...] and Medical Decision Making performed by the SPECIAL DISTRIBUTION CLERK/PA is based on my personal performance of the HPI, PE and MDM. For SPECIAL DISTRIBUTION CLERK/PA cases/ documentation I have personally evaluated this [...] 12 L Eos % (Auto) 0 L Crockett # (Auto) 0.9 H Baso # (Auto) [...] Lymph % (Auto) 12 L (20-35) % [place] % (Auto) 11 (4-12) % Eos % (Auto) 0 L (2-5) % Baso % (Auto) 0 (0-1) % Lymph # (Auto) 1.0 (0.5-3.5) 10'3/uL [place] # (Auto) 0.9 H (0.2-0.8) 10'3/uL Eos [...] (CLEAR) Urine pH 6.0 (5.5-8.0) Ur Specific Street 1.010 (1.005-1.030) Urine Protein 30 (1+) A [...] <Electronically signed by Ricky Singh MD> 08/24/22 1557 Cosigned By (if applicable): [id number] cc: [facility] Work Phone: Progress note Author Andra Campbell [facility] December 24, 2022 11:29am Note Date/Time December 24, 2022 11:1 5am [facility] [address] [place], [place] [id number] Office Visit Report Signed Patient Name: Sherry Ash [facility] Rec ord #: [id number] Date of : 1945 Account #: [id number] Age/Sex: 77 / F Date of Servi ce: 12/24/22 Location: [facility] Cardiology Attending physician: Andra Campbell DO Intake Vital Signs 12/24/22 11:11 12/24/22 11:15 Height 5 ft 2 in Weight 65.9 kg BMI 26.5 BP 89/53 L 89/53 L BP Location Right Brachial BP Position Sitting BP Cuff Size Adult BP Source Automatic Cuff Pulse 69 Pulse Source Monitor Intake Visit Reasons: 6 month f/u Director Of Sustainable Design Required: No Accompanied by: Self / Same [...] DO> 12/24/22 1129 Cosigned By (if applicable): [id number] cc: DO Nathanael Wheeler DO [facility] [employer] Work Phone: Progress note Author Tisha Lopez [facility] [employer] August 03, 2023 3:32pm Note Date/Time August 03, 2023 2:58 pm [facility] [address] [place] [id number] Office Visit Report Signed Patient Name: Sherry Ash [facility] Rec ord #: [id number] Date of : 1945 Account #: [id number] Age/Sex: 77 / F Date of Servi ce: 08/03/23 Location: [facility] Urgent Care Attending physician: Tisha DIOP Intake [...] in 10 years. She is following with [facility] and has appointment in September. Review [...] repeat in 10 years. [facility] September. On [...] Nina Mendoza on 08/03/23 15:[address] 1.020 Last Edit by Nina Mendoza on [...] Lopez> 08/03/23 1532 Cosigned By (if applicable): [id number] cc: CHIKIS Velasco [facility] [employer] Work Phone: Progress note Author Joy Wan [facility] [employer] Note Date/Time February 28, 2024 10:31am [facility] Medical Group [address] [place], [place] [id number] Office Visit Report Signed Patient Name: Sherry Ash [facility] ord #: [id number] Date of : 1945 Account #: [id number] Age/Sex: 78 / F Date of Servi ce: 02/28/24 Location: [facility] Orthopedics Attending physician: Joy DIOP HPI HPI [...] has been under the care of a vascular tech and her PCP and has been taking [...] to track changes b. Follow up with vascular tech or PCP if worsens or no improvement [...] mg/mL subcutaneous syringe (Prolia) 60 mg subcut [id number] fluticasone propionate 50 mcg/actuation nasal spray,suspension 1 [...] syringe Performing Provider: CHIKIS Conner Performing Location: [facility] Orthopedics Administered by: CHIKIS Conner on 02/28/24 10:25 Dose Route Admin Location Dispensed Lot Number Expiration Date NDC [employer] Techn[employer] 60 mg subcut left deltoid 1 mL [id number] 10/28/25 15878-215-71 [employer]GEN Dictated By: CHIKIS Conner 02/28/24 1017 Signed By: <Electronically signed by CHIKIS Wan> 02/28/24 1103 Cosigned By (if applicable): [id number] cc: DO Joy Bustos PA [facility] [employer] Work Phone: Progress note Author Hugh Julian [facility] Note Date/Time March 27, 2024 1 1:26am [place] [address] [place] [id number] Emergency Department Note Signed Patient Name: Sherry Ash ical Record #: [id number] Date of : 1945 Age/Sex: 78 / [...] denosumab 60 mg/mL subcutaneous 60 mg subcut [id number] 08/26/23 03/27/24 History syringe (Prolia) rosuvastatin 40 [...] except asnoted in History and below History [facility] Medical History Congenital ureteropelvic junction obstruction Granulomatous [...] History History Provided by: Patient Preferred Language: Kazakh Language Assistance Offered: Not Applicable Usual Living [...] % Lymph % (Auto) 24 (20-35) % [place] % (Auto) 6 (4-12) % Eos % (Auto) 0 L (2-5) % Baso % (Auto) 1 (0-1) % Lymph # (Auto) 1.5 (0.5-3.5) 10'3/uL [place] # (Auto) 0.4 (0.2-0.8) 10'3/uL Eos # [...] (CLEAR) Urine pH 8.0 (5.5-8.0) Ur Specific Street 1.020 (1.005-1.030) Urine Protein Negative (Negative) mg/dL [...] - Pending Blood Imaging Data Radiologist's impression: [address] [address] [address] Scan Report Signed Patient Name: Sherry [...] Prolia 60 mg/mL syringe 60 mg subcut [id number] triamcinolone acetonide 0.1 % cream 1 applic [...] MD> 03/27/24 1126 Cosigned By (if applicable): [id number] cc: [facility] Work Phone: Progress note Author Nicole Garcia [facility] Medical Care, [facility] Note Date/Time March 30, 2024 9 :36am [facility] Medical Group [address] [place] [address] Office Visit Report Signed Patient Name: Sherry Ash [facility] Rec ord #: [id number] Date of : 1945 Account #: [id number] Age/Sex: 78 / F Date of Servi ce: 03/30/24 Location: [facility] Primary Care [place] Attending physician: Nicole Garcia DO Vital Signs [...] mg/mL subcutaneous syringe (Prolia) 60 mg subcut [id number] fluticasone propionate 50 mcg/actuation nasal spray,suspension 1 [...] GI virus. Pt states she went to [facility] GI in July, she was prescribed Linzess that made her sick. She does not have a f/u visit. [facility] Medical History (Updated 03/30/24 @ 08:49 by [...] Also used as needed Reglan previously with [facility] earlier this year, but was trying to [...] prior vaginal swab 10/14/2023 which did show Laly species but was negative for BV, trichomonas, C glabrata. Note last saw [facility] GI May 2023, then followed up with [facility] for GI in July 2023 [will request [facility] record]; states was trialed on Linzess but [...] already has previously scheduled follow-up for 05/18/2024, wewill keep this for now as this will [...] Patient Instructions: Eye drops to look for [id number]: - for allergies causing red or itchy [...] DO> 03/30/24 0852 Cosigned By (if applicable): [id number] cc: Nicole Garcia DO [facility] [employer] Work Phone: Progress note Author Tisha Lopez [facility] [employer] Note Date/Time April 21, 2024 9:55am [facility] Medical Group [address] [place] [address] Office Visit Report Signed Patient Name: Sherry Ash [facility] Rec ord #: [id number] Date of : 1945 Account #: [id number] Age/Sex: 78 / F Date of Servi ce: 04/21/24 Location: [facility] Urgent Care Attending physician: Tisha DIOP Intake Vital Signs 04/21/24 09:33 BP 106/59 L Respiration 18 Pulse 91 Pulse Source NIBP Temp 98.4 F Pulse Oximetry (%) 96 Intake Visit Reasons: Possible Kidney Infection Allergies Allergy/AdvReac Type Severity Reaction Status Date / Time oxycodone Allergy Severe Headache Verified 04/21/24 09:33 Iodinated Contrast Media Allergy Mild headache, Verified 04/21/24 09:33 burning skin Penicillins Allergy Mild Rash Verified 04/21/24 09:33 Quinolones Allergy Mild Rash Verified 04/21/24 09:33 moxifloxacin Allergy Unknown Unknown Verified 04/21/24 09:33 cephalexin AdvReac Intermediate Vomiting Verified 04/21/24 09:33 doxycycline AdvReac Intermediate TEARS UP Verified 04/21/24 09:33 STOMACH- CAUSES ALOT OF PAIN hydrocodone AdvReac Intermediate vomiting, Verified 04/21/24 09:33 headache nitrofurantoin (From AdvReac Intermediate Vomiting Verified 04/21/24 09:33 Macrobid) albuterol AdvReac Mild HEADACHE,NA Verified 04/21/24 09:33 USEA bee venom protein (honey bee) AdvReac Mild swelling, Verified 04/21/24 09:33 vomiting calcium AdvReac Mild GI upset Verified 04/21/24 09:33 fluconazole AdvReac Mild Headache Verified 04/21/24 09:33 Current Medication List - Last Reconciled 04/21/24 by Nina Mendoza alprazolam 0.25 mg tablet 0.25 mg PO BID PRN 30 days cholecalciferol (vitamin D3) 50 mcg (2,000 unit) capsule 50 mcg PO DAILY denosumab 60 mg/mL subcutaneous syringe (Prolia) 60 mg subcut [id number] fluticasone propionate 50 mcg/actuation nasal spray,suspension 1 spray Nostril-both DAILY loratadine 10 mg tablet 10 mg PO DAILY miconazole nitrate 2 % topical cream 1 applic topical BEDTIME 7 days multivitamin 1 tab PO DAILY nystatin 100,000 [...] venlafaxine 37.5 mg capsule,extended release 24 hr 75 mg (2 x 37.5 mg) PO DAILY 90 days NS Nurse's Note: started yesterday with nausea, then had to get up freq last night, ui7qsco just little at time, has low back pain and low abd pain. [facility] Medical History Acute UTI (urinary tract infection) Congenital ureteropelvic [...] Alcohol abuse Mother Elevated cholesterol Alcohol abuse Urgent Care Social History Social History History [...] HPI Comments History of Present Illness Details The patient presents c/o frequent urination, occurring every 15 minutesthroughout the night. Sx started yesterday evening. New symptom of nausea began this morning upon waking up. Denies fever, hematuria, or lower abd pain. Hx of recurrent UTIs. She feels infections never completely clear up. Currently under care of urologist, who has informed patient that recurrent infections are to be expected. Physical Exam Constitutional Common normals: no acute [...] rate Rhythm: regular rhythm GI Common normals: Normal to inspection, nondistended, normoactive bowel sounds present, Soft to palpation, non-tender and no masses Palpation: Soft to palpation Common normals: no CVA tenderness Bladder/kidney exam: no CVA tenderness Back & Pelvis Common normals: no CVA tenderness Neuro Common normals: alert and patient oriented x3 Sensorium/orientation: Yes alert Assessment & Plan Assessment & Plan (1) UTI (urinary tract infection): Code(s): N39.0 - Urinary tract infection, site not specified Qualifiers: Urinary tract infection type: acute cystitis Hematuria presence: with hematuria Qualified Code(s): N30.01 - Acute cystitis with hematuria Plan: - Assessment: Patient reports frequent urination, starting yesterday evening, with a history of recurrent UTIs. No fever, hematuria, or significant pain reported. - Plan: * Send urine for culture and sensitivity testing to ensure appropriate antibiotic treatment. * Start Macrobid given results from last urine culture. GFR WNL on last check * Instruct the patient to complete the full course of antibiotics. * Order a test of cure to be completed after finishing the antibiotic course given patient's concern that infections aren't clearing * Instruct the patient to visit the lab at the hospital for the test when convenient after returning from out of town. * Contact the patient with results and consider further evaluation and treatment if infection is not cleared. Plan Symptomatic treatment discussed. Patient's vitals are stable and patient is nontoxic appearing. Agreeable with plan and discharge home. Standard, Ed, red flag warnings given. All questions were answered during the encounter and the patient/caregiver verbalized understanding and was in agreement with plan of care.? The patient was instructed to call if worsening or not improving.? The patient was counseledregarding impressions, instructions for management and importance of compliance with treatment. Nursing notes and assessments: Reviewed and agree. Orders: Orders AM.Urinalysis Today R35.0 - Frequency of micturition Urine Culture Today R30.0 - Dysuria UA with Reflex Culture 04/27/24 N39.0 - Urinary tract infection, site not specified Medications: New nitrofurantoin monohyd/m-cryst 100 mg (Macrobid) must administer with a meal/food 100 mg PO Q12H 5 days 10 caps 0RF Patient Instructions: Take antibiotics as prescribed until gone Push fluids Use tylenol (maximum daily dose 4,000 mg/day) and ibuprofen (maximum 3,200 mg/day) alternating every 3 hours as needed for fever/pain. We will call with urine culture results when available Complete test of cure after completion of antibiotics UTI Prevention: * Urinate after sexual activity * Stay well hydrated * Take showers instead of baths * Minimize douching, sprays, or powders in the genital area * Wear loose fitting under garments * Wipe front to back Return sooner for new or worsening symptoms: high fever, change in mentation, SOB, difficulty breathing, worsening urinary symptoms. If no improvement in 2-3 days, return for reevaluation or follow up with PCP. Results UA Results Urine Apperance cloudy Last Edit by Nina Mendoza on 04/21/24 09:37 Urine Color Yellow Last Edit by Nina Mendoza on 04/21/24 09:37 Urine Glucose Negative Last Edit by Nina Mendoza on 04/21/24 09:37 Urine Bilirubin Negative Last Edit by Nina Mendoza on 04/21/24 09:37 Urine Ketones Negative Last Edit by Nina Mendoza on 04/21/24 09:[address] 1.020 Last Edit by Nina Mendoza on 04/21/24 09:3 7 Urine Blood Moderate Last Edit by Nina Mendoza on 04/21/24 09:37 Urine pH 7.0 Last Edit by Nina Mendoza on 04/21/24 09:37 Urine Protein +++ Last Edit by Nina Mendoza on 04/21/24 09:37 Urine Urobilinogen 1 Last Edit by Nina Mendoza on 04/21/24 09:37 Urine Nitrite Positive Last Edit by Nina Mendoza on 04/21/24 09:37 Urine Leukocytes Large Last Edit by Nina Mendoza on 04/21/24 09:37 Supplemental Info UA positive for blood, leuks, nitrites. Urine culture pending Dictated By: CHIKIS Velasco 04/21/24 0933 Signed By: <Electronically signed by CHIKIS Lopez> 04/21/24 1013 Cosigned By (if applicable): [id number] cc: CHIKIS Velasco [facility] [employer] Work Phone: Progress note Author Nicole Garcia [facility] [employer] Note Date/Time June 12, 2024 1 0:46am [facility] Medical Group [address] [place], [place] [address] Office Visit Report Signed Patient Name: Sherry Ash [facility] ord #: [id number] Date of : 1945 Account #: [id number] Age/Sex: 78 / F Date of Servi ce: 06/12/24 Location: [facility] Primary Care [facility] Attending physician: Nicole Garcia DO Vital Signs 06/12/24 10:19 06/12/24 10:22 Height 5 ft 2 in Weight (kg) 154 lb 2 oz BMI 28.1 BP 90/66 L 90/66 L BP Location Right Brachial BP Position Sitting BP Cuff Size Adult BP Source Manual Cuff Respiration 20 Pulse 74 Pulse Source Monitor Temp 98.6 F Temp Source Temporal Artery Scan Pulse Oximetry (%) 97 Oxygen Delivery Method Room Air Intake Visit Reasons: Urinary tract infection & URI Allergies Allergy/AdvReac Type Severity Reaction Status Date / Time oxycodone Allergy Severe Headache Verified 06/12/24 10:12 Iodinated Contrast Media Allergy Mild headache, Verified 06/12/24 10:12 burning skin Penicillins Allergy Mild Rash Verified 06/12/24 10:12 Quinolones Allergy Mild Rash Verified 06/12/24 10:12 moxifloxacin Allergy Unknown Unknown Verified 06/12/24 10:12 cephalexin AdvReac Intermediate Vomiting Verified 06/12/24 10:12 doxycycline AdvReac Intermediate TEARS UP Verified 06/12/24 10:12 STOMACH- CAUSES ALOT OF PAIN hydrocodone AdvReac Intermediate vomiting, Verified 06/12/24 10:12 headache nitrofurantoin (From AdvReac Intermediate Vomiting Verified 06/12/24 10:12 Macrobid) albuterol AdvReac Mild HEADACHE,NA Verified 06/12/24 10:12 USEA bee venom protein (honey bee) AdvReac Mild swelling, Verified 06/12/24 10:12 vomiting calcium AdvReac Mild GI upset Verified 06/12/24 10:12 fluconazole AdvReac Mild Headache Verified 06/12/24 10:12 Current Medication List - Last Reconciled 06/12/24 by Alma Rodriguez alprazolam 0.25 mg tablet 0.25 mg PO BID PRN 30 days cholecalciferol (vitamin D3) 50 mcg (2,000 unit) capsule 50 mcg PO DAILY denosumab 60 mg/mL subcutaneous syringe (Prolia) 60 mg subcut [id number] fluticasone propionate 50 mcg/actuation nasal spray,suspension 1 spray Nostril-both DAILY loratadine 10 mg tablet 10 mg PO DAILY methenamine hippurate 1 gram tablet 1 GM PO BID 30 days miconazole nitrate 2 % topical cream 1 applic topical BEDTIME 7 days multivitamin 1 tab PO Q OTHER DAY nystatin 100,000 unit/gram topical powder (Nystop) 1 applic topical BID PRN pantoprazole 40 mg tablet,delayed release 40 [...] release 24 hr 37.5 mg PO DAILY Nurse's Note: Pt here with c/o burning with urination, bilateral lower back pain, and cough that started 06/10/24. Pt also c/o right groin pain that started last week. [facility] Medical History Acute UTI (urinary tract infection) Congenital ureteropelvic [...] Abuse or Suspected Abuse: No HPI HPI Urinary tract infection & URI: Details: Patient presents today for sick visit for multiple concerns as below. Blood pressure today low at 90/66, confirmed with Doppler; incidentally noted onvitals, patient asymptomatic. States drinking water a lot lately. Has home wirstBP cuff. Not symptomatic/dizzy this AM. Will check home BP over next few days after treating for UTI. Frequent UTIs: c/o burning with urination, bilateral lower/lumbar back pain starting from 06/10/24 -Urinalysis today showing trace leukocyte esterase, otherwise negative/normal. -Last visit 05/18/2024 had UA with positive nitrates and large leukocyte esterase with proteinuria, moderate blood, small bilirubin. We had treated thiswith Bactrim and then had patient start methenamine hippurate 1 g twice daily asUTI preventative after finishing the Bactrim course due to history of frequent UTIs. Culture then grew E. coli, no resistance -Has been taking the methenamine hippurate for about 3 weeks now -UTI prior to that in March 2024 also grew pansensitive E. coli in culture -In past around [address] Hurtado, initially stated she would want to see adifferent urologist but based on location she would actually prefer to go back to Dr. Hurtado as he is closest neurologist; given new referral to this office Some low back/lumbar pain (states associated/aggravated by extended periods of sitting), but no CVA tenderness. 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 Does have listed allergies/adverse reactions to penicillins, colons, moxifloxacin, cephalexin, doxycycline, and nitrofurantoin [rash or GI symptoms for all] URI: Also endorses a mild dry/nonproductive intermittent cough last couple days, associated with nasal congestion and dry throat. States symptoms mild, not as bothersome as the UTI-like symptoms. No fevers at home, no chills. Afebrile in office today. Negative COVID/flu rapid testing. States daughter in law had GI bug recently, no other sick contacts. Has netti pot at home, agreeable to using this for symptoms, also discussed below OTC meds as under patient instructions. MSK right groin/hip pain: also c/o right groin pain that has been intermittent, maybe couple weeks duration but on and off not constant. Describes this as a pain that is sharp inright inguinal region that radiates deeper. Points over area of right hip jointanteriorly. States she notices it more when active walking on treadmill, with this aggravation being occasional up to once a week; may last up to 2-3 hours at the longest [sometimes just seconds or minutes] then self-resolve. Last happened this AM when walking around, just very briefly few seconds. States very active at baseline. No prior hip imaging or known history of any significant hip osteoarthritis. Review of Systems Narrative Constitutional: No fevers, chills Respiratory/HENT: see HPI; no SOB/wheezing Cardiovascular: no chest pain or dyspnea on exertion. Genito-Urinary: see as above in HPI Physical Exam Narrative Exam Narrative: Constitutional: Mildly ill appearing with slightly congested sounding speech, nontoxic appearance Eyes: EOMI , non-icteric sclera. ENMT: MMM, external ear appear normal : No true CVA tenderness, points to area of pain as lower to mid lumbar region Cardiovascular: RRR, normal S1/S2, no murmurs, gallops or rubs . Results UA Results Urine Apperance clear Last Edit by Alma Rodriguez on 06/12/24 10:27 Urine Color Dark Yellow Last Edit by Alma Rodriguez on 06/12/24 10:27 Urine Glucose Negative Last Edit by Alma Rodriguez on 06/12/24 10:27 Urine Bilirubin Negative Last Edit by Alma Rodriguez on 06/12/24 10:27 Urine Ketones Negative Last Edit by Alma Rodriguez on 06/12/24 10:[address] 1.015 Last Edit by Alma Rodriguez on 06/12/24 10:27 Urine Blood Negative Last Edit by Alma Rodriguez on 06/12/24 10:27 Urine pH 6.5 Last Edit by Alma Rodriguez on 06/12/24 10:27 Urine Protein Negative Last Edit by Alma Rodriguez on 06/12/24 10:27 Urine Urobilinogen 0.2 Last Edit by Alma Rodriguez on 06/12/24 10:27 Urine Nitrite Negative Last Edit by Alma Rodriguez on 06/12/24 10:27 Urine Leukocytes Trace Last Edit by Alma Rodriguez on 06/12/24 10:27 BD Veritor Covid BD Veritor Covid Negative Last Edit by Alma Rodriguez on 06/12/24 10:28 Flu A: Negative Flu B: Negative Assessment & Plan Assessment & Plan (1) Recurrent UTI: Code(s): N39.0 - Urinary tract infection, site not specified Category: Medical (2) 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 Discussed monitoring home blood pressures, patient will check home BP over next few days after treating for UTI. If not improving with top number/SBP staying 100+ patient is to let our office know. Frequent UTIs: -Due to severity of dysuria along with a trace leukocytes discussed okay to treat with Bactrim, will send urine for culture as well. -Advised to hold methenamine hippurate while taking the Bactrim -Discussed importance of going back to urology to the frequency of her UTI-like symptoms [as well as underlying history of congenital UPJ obstruction bilaterally although this was noted to be mild/not clinically significant on past urology note], given new referral to this office URI: Mild symptoms with negative rapid testing, discussed treating symptomatically for now, likely viral etiology. Has netti pot at home, agreeable to using this for symptoms, also discussed below OTC meds as under patient instructions. MSK right groin/hip pain: Discussed likely MSK etiology such as muscular spasm since it is aggravated withincreased activity, discussed starting with stretching before physical activity such as when she walks on the treadmill. If pain continuing/more frequent or more severe discussed can get x-ray right hip to evaluate for any underlying arthritis and may also be contributing to this. She defers imaging workup for now. === She will make appointment with urology; scheduled for 07/03/2024. Will call with urine culture once available, will check on home blood pressure readings as well then. 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 Here are some of the zjsa-hoa-pwlphef treatments you may try as below: ... FOR CONGESTION: - nasal saline rinses such as NeilMed or Neti pot are very helpful, please use room temperature bottled water along with the included saline packet and hold your breath while using the rinse per package directions. - steam such as from hot showers can also be helpful for decongestion, or household humidifiers - nasal steroid sprays such as Flonase/fluticasone or Nasacort can be helpful with decreasing congestion, especially if seasonal allergies may be a factor. - if you do not have issues with high blood pressure/are not on blood pressure medications, it is okay to use Sudafed (pseudoephedrine works better than phenylephrine) for short periods of time such as a few days at a time for when the congestion is most severe. Do not use this more than a few days in a row, asit can increase blood pressure and heart rate. ... FOR COUGH: - you can try lmnn-uxq-rppveqy Delsym/dextromethorphan cough medicine - please also stay well hydrated, sometimes cough is related to postnasal drip (mucus running down the back of your throat) and keeping this mucus as thin as possible by drinking lots of water (or other non caffeinated hydrating fluids including Gatorade, Pedialyte) is helpful for this ... FOR SORE THROAT: - in addition to staying well hydrated as above and treating cough as it may contribute to throat pain, numbing cough drops such as Chloraseptic (or generic equivalent with benzocaine) brand or Chloraseptic brand throat spray (also numbing with phenol) can be helpful. Honey can also be soothing for sore throat and has antimicrobial properties. ... FOR FEVER/BODY ACHES: - it is okay to take Tylenol 500-1000 mg (up to every 6-8 hours for max total dose 3000mg total daily) as needed for fever or body aches/pain - if able to take NSAIDs (no kidney issues, no stomach ulcers, and not on blood-thinners) you can also take ibuprofen (400-600mg up to every 6 hours; or 800mg up to every 8 hours) as needed in addition to or instead of the Tylenol ... Alarm symptoms for which to call the office or potentially go to the ER (if severe enough) include difficulty breathing (trouble catching your breath beyondyour normal level, especially to the point of making it difficult for you to talk in complete sentences), high fevers (>101 degrees F) that do not improve with Tylenol and ibuprofen, or signs of dehydration (such as urinating less often, significantly decreased oral intake or being unable to keep liquids down for several days) Dictated By: Nicole Garcia DO 06/12/24 1008 Signed By: <Electronically signed by Nicole Garcia DO> 06/12/24 1220 Cosigned By (if applicable): [id number] cc: Nicole Garcia DO [facility] [employer] Work Phone: Progress note Author Lion Hurtado [facility] [employer] Note Date/Time July 31, 2024 12:0 9pm [facility] [address] [place], [place] [address] Office Visit Report Signed Patient Name: Sherry Ash Rec ord #: [id number] Date of : 1945 Account #: [id number] Age/Sex: 78 / F Date of Servi ce: 07/31/24 Location: [facility] Urology Attending physician: Lion Hurtado MD Vital Signs 07/31/24 11:56 07/31/24 12:02 Height 5 ft 10 in Weight (kg) 68.606 kg BMI 21.7 BP 182/72 H 182/72 H BP Location Right Brachial BP Position Sitting BP Cuff Size Adult BP Source Automatic Cuff Pulse 77 Intake Visit Reasons: Cysto, bladder irrigation f/u Allergies Allergy/AdvReac Type Severity Reaction Status Date / Time oxycodone Allergy Severe Headache Verified 07/31/24 11:56 Iodinated Contrast Media Allergy Mild headache, Verified 07/31/24 11:56 burning skin Penicillins Allergy Mild Rash Verified 07/31/24 11:56 Quinolones Allergy Mild Rash Verified 07/31/24 11:56 moxifloxacin Allergy Unknown Unknown Verified 07/31/24 11:56 doxycycline AdvReac Intermediate TEARS UP Verified 07/31/24 11:56 STOMACH- CAUSES ALOT OF PAIN hydrocodone AdvReac Intermediate vomiting, Verified 07/31/24 11:56 headache nitrofurantoin (From AdvReac Intermediate Vomiting Verified 07/31/24 11:56 Macrobid) albuterol AdvReac Mild HEADACHE,NA Verified 07/31/24 11:56 USEA bee venom protein (honey bee) AdvReac Mild swelling, Verified 07/31/24 11:56 vomiting calcium AdvReac Mild GI upset Verified 07/31/24 11:56 fluconazole AdvReac Mild Headache Verified 07/31/24 11:56 Current Medication List - Last Reconciled 07/31/24 by Catrachita Latham alprazolam 0.25 mg tablet 0.25 mg PO BID PRN 30 days cholecalciferol (vitamin D3) 50 mcg (2,000 unit) capsule 50 mcg PO DAILY denosumab 60 mg/mL subcutaneous syringe (Prolia) 60 mg subcut [id number] fluconazole 150 mg tablet 150 mg PO ONCE fluticasone propionate 50 mcg/actuation nasal spray,suspension 1 spray Nostril-both DAILY loratadine 10 mg tablet 10 mg PO DAILY multivitamin 1 tab PO DAILY pantoprazole 40 mg tablet,delayed release 40 mg PO DAILY polyethylene glycol 3350 17 gram oral powder packet (Miralax) 17 grams PO DAILY rosuvastatin 40 mg tablet 40 mg PO DAILY 90 days Saccharomyces boulardii (Daily Probiotic (S. boulardii)) 1 cap PO DAILY sulfamethoxazole 800 mg-trimethoprim 160 mg tablet (Bactrim DS) 1 tab PO BID venlafaxine 37.5 mg capsule,extended release 24 hr 37.5 mg PO DAILY Nurse's Note: f/u cysto bladder irrigation PFSH Medical History Abdominal pain Nausea Acute UTI (urinary tract infection) Congenital ureteropelvic [...] Abuse or Suspected Abuse: No HPI HPI Cysto, bladder irrigation f/u: Details: The patient, a 78-year-old woman with a history of recurrent urinary tract infections, presents for follow-up after a recent cystoscopy with bladder irrigation performed on July 12, 2024. During the procedure, significant debris was found in the bladder, which was subsequently irrigated. The patient reports having recently started taking Hiprex, which was prescribed by another physician following her last urinary tract infection. She had initially believed it to be an antibiotic but was informed during this visit that it is not. The patient also mentions that cranberry juice alone did not seem to be effective in preventing her urinary tract infections. Medical History: - Recurrent urinary tract infections - Recent cystoscopy with bladder irrigation (July 12, 2024) Current Medications and Supplements: - Hiprex (methenamine hippurate) Past Treatments: - Cranberry juice (reported as ineffective in preventing urinary tract infections) PHQ-2/PHQ-9 PHQ-2 Over the last 2 weeks, how often have you been bothered by any of the following problems? Little interest or pleasure in doing things: not at all Feeling down, depressed, or hopeless: not at all Total score: 0 Review of Systems Status of ROS Reports: 10 or more systems reviewed and unremarkable except as noted in Historyand below Physical Exam Constitutional Common normals: no acute distress, patient oriented x3 and alert HENT Common normals: normocephalic and moist oral mucous membranes Head and scalp: normocephalic Eye Common normals: Equal, round and reactive pupils present, EOMs intact bilaterally and conjunctivae normal Conjunctiva: conjunctivae normal Pupil: Equal, round and reactive pupils present Neck & C-Spine Common normals: no JVD Lymph Lymphatic: no lymphadenopathy noted Respiratory Common normals: normal respiratory effort and Normal inspection Cardio Common normals: no JVD, regular rate and regular rhythm Rate: regular rate Rhythm: regular rhythm GI Common normals: Normal to inspection, nondistended, normoactive bowel sounds present Common normals: no CVA tenderness Bladder/kidney exam: no CVA tenderness Back & Pelvis Common normals: no CVA tenderness Extremity Common normals: full ROM and no calf tenderness Neuro Common normals: alert and patient oriented x3 Sensorium/orientation: Yes alert Skin Common normals: no rashes or lesions noted General skin exam: no rashes or lesions noted Assessment & Plan Assessment & Plan (1) Recurrent UTI: Code(s): N39.0 - Urinary tract infection, site not specified Category: Medical Plan 1. Recurrent Urinary Tract Infections: - The patient is a 78-year-old woman with a history of recurrent urinary tract infections. A cystoscopy with bladder irrigation was performed on 2024, which revealed significant debris in the bladder. The procedure was successful in clearing the debris, establishing a baseline for future management. The clinician acknowledges that future infections are likely due to the patient's immune status, and repeat procedures may be necessary. - Plan: a. Continue aggressive hydration b. Maintain regular urination intervals c. Implement proper voiding techniques: full pants down, legs out, leaning forward, pushing in and down over bladder d. Practice double voiding technique: stand up, march in place, sit down, and repeat voiding process e. Continue cranberry juice consumption f. Continue Hiprex (methenamine hippurate) as prescribed g. Contact office for symptoms suggestive of urinary tract infection h. Discontinue long-term suppressive antibiotics Dictated By: Lion Hurtado MD 07/31/24 1156 Signed By: <Electronically signed by Lion Hurtado MD> 07/31/24 1211 Cosigned By (if applicable): [id number] cc: Lion Hurtado MD [facility] [employer] Work Phone: Reason for referral (narrative)* Diagnostic Procedure Only (Routine) - Closed Specialty Diagnoses / Procedures Referred By Contac t Referred To Contact XR IMAGING Diagnoses Chronic idiopathic constipation Procedures XR ABDOMEN 1V SUPINE RADIOLOGIC EXAM ABDOMEN [address] Awan DO [address] [place] [address] [place] [address] Referral ID Status Reason Start Date Expiration Date V isits Requested Visits Authorized [id number] Closed Auto-Generate d Referral 08/16/2023 09/14/2024 1 1 [facility] for referral (narrative)* Diagnostic Procedure Only (Routine) - Closed Specialty Diagnoses / Procedures Referred By Contac t Referred To Contact XR IMAGING Diagnoses Chronic idiopathic constipation Procedures XR ABDOMEN 1V SUPINE RADIOLOGIC EXAM ABDOMEN [address] Awan DO [address] [place] [phone] [place] [address] Referral ID Status Reason Start Date Expiration Date V isits Requested Visits Authorized [id number] Closed Auto-Generate d Referral 08/16/2023 09/14/2024 1 1 [facility] for visit Narrative* Diagnostic Procedure Only (Routine) - Closed Specialty Diagnoses / Procedures Referred By Contac t Referred To Contact XR IMAGING Diagnoses Chronic idiopathic constipation Procedures XR ABDOMEN 1V SUPINE RADIOLOGIC EXAM ABDOMEN [address] Awan DO [address] [place] [phone] [place] [address] Referral ID Status Reason Start Date Expiration Date V isits Requested Visits Authorized [id number] Closed Auto-Generate d Referral 08/16/2023 09/14/2024 1 1 [facility] Summary Purpose Family History No Family History Records Found Relationship Condition Age at Onset Recorded Date/T marcos father Diabetes mellitus Unknown Alcohol abuse Unknown mother High blood cholesterol Unknown Advance Directives No Advanced Directives Records Found Advance Directive Response Recorded Date/ Time Advance Directives No August 24 1:55pm Advance Directive Response Recorded Date/ Time Advance Directives No March 10:10am Living Will Yes April 12 9:23am Power of Supervisor Agency Appointments Yes April 12, 2023 9:23am Organ Donor No April 12, 023 9:23am DNR- Comfort Care Arrest Yes Novembe r 2022 9:23am DNR- Comfort Care Only No April 12, 2023 9:23am Advance Directive Response Recorded Date/ Time DNR- Comfort Care Only No April 12, 2023 9:23am DNR- Comfort Care Arrest Yes Novembe r 2022 9:23am Advance Directive Response Recorded Date/ Time DNR- Comfort Care Only No April 12, 2023 10:23am DNR- Comfort Care Arrest Yes Novembe r 2022 10:23am Advance Directive Response Recorded Date/ Time Advance Directives Yes January 16, 2024 7:37am Living Will Yes January 15 7:37am Power of Supervisor Agency Appointments Yes January 15, 024 7:37am Organ Donor No January 15 7:37am DNR- Comfort Care Arrest No January 16, 2024 7:37am DNR- Comfort Care Only No January 152023 7:37am Advance Directive Response Recorded Date/ Time Advance Directives No March 03, 2024 5:37pm Advance Directive Response Recorded Date/ Time Advance Directives Yes January 16, 2024 7:37am Living Will Yes January 15 7:37am Power of Supervisor Agency Appointments Yes January 15 7:37am Organ Donor No January 15 7:37am Advance Directives No March 27, 2024 9:00am DNR- Comfort Care Arrest No March 27, 2024 9:00am DNR- Comfort Care Only No March 012023 9:00am Advance Directive Response Recorded Date/ Time Advance Directives Yes January 16, 2024 6:37am Living Will Yes January 15 6:37am Power of Supervisor Agency Appointments Yes January 15 6:37am Organ Donor No January 15 6:37am Advance Directives No March 27, 2024 8:00am DNR- Comfort Care Arrest No March 27, 2024 8:00am DNR- Comfort Care Only No March 012023 8:00am Advance Directive Response Recorded Date/ Time Advance Directives No March 27, 2024 8:00am DNR- Comfort Care Arrest No March 27, 2024 8:00am DNR- Comfort Care Only No March 012023 8:00am Advance Directive Response Recorded Date/ Time Advance Directives Yes July 05, 2024 5:06pm Living Will Yes July 05 5:06pm Power of Supervisor Agency Appointments Yes July 05, 2024 5:06pm DNR- Comfort Care Only No March 012023 8:00am DNR- Comfort Care Arrest No March 27, 2024 8:00am Advance Directive Response Recorded Date/ Time Advance Directives Yes July 05, 2024 6:06pm Living Will Yes July 05 6:06pm Power of Supervisor Agency Appointments Yes July 05, 2024 6:06pm DNR- Comfort Care Only No March 012023 9:00am DNR- Comfort Care Arrest No March 27, 2024 9:00am Advance Directive Response Recorded Date/ Time DNR- Comfort Care Only No March 012023 9:00am DNR- Comfort Care Arrest No March 27, 2024 9:00am Chief Complaint and Reason for Visit Chief [...] 2024 2:22pm GERD (gastroesophageal reflux disease) S [facility] 2023 2:22pm Dysuria February 17, 2024 2:22pm [...] 2024 2:22pm GERD (gastroesophageal reflux disease) S [facility] 2023 2:22pm Dysuria February 17, 2024 2:22pm [...] Sick to stomach, baez when urinating Oc tob 2023 8:41am ER Follow Up March 30, 2024 7 :52am Chief Complaint Admit Date Rt. shoulder pain February 17, 2024 2:22pm Burning with urination February 16, 024 2:53pm Prolia, No PA needed February 27 10:08am Sick to stomach, baez when urinating Oc tober 2023 8:41am ER Follow Up March 30, 2024 7 :52am Possible Kidney Infection April 21, 2024 9:07am Reason for Visit Admit Date Anxiety February 17, 2024 2:22pm Gastroparesis February 17, 2024 2:22pm GERD (gastroesophageal reflux disease) S [id number] 2:22pm Dysuria February 17, 2024 2:22pm Abdominal bloating February 17, 2024 2:22pm Postmenopausal February 28, 2024 10:08am Osteoporosis February 28, 2024 10:08am Dry eye syndrome March 30, 2024 7 :52am MDD (major depressive disord er), recurrent severe, without psychosis March 30, 2024 7:52am Nausea March 30, 2024 7 :52am Anxiety March 30, 2024 7 :52am Congenital ureteropelvic junction obstru ction March 30, 2024 7:52am Gastroparesis March 30, 2024 7 :52am Vulvovaginal discomfort March 30 7:52am Vulvovaginal candidiasis March 30, 024 7:52am Chief Complaint Admit Date Rt. shoulder pain February 17, 2024 2:22pm Burning with urination February 16, 024 2:53pm Prolia, No PA needed February 27 10:08am Sick to stomach, baez when urinating Oc 2023 8:41am ER Follow Up March 30, 2024 7 :52am Possible Kidney Infection April 21, 2024 9:07am Dysuria Frequent urinary tract infection s April 21, 2024 10:14am Reason for Visit Admit Date Anxiety February 17, 2024 2:22pm Gastroparesis February 17, 2024 2:22pm GERD (gastroesophageal reflux disease) S [id number] 2:22pm Dysuria February 17, 2024 2:22pm Abdominal bloating February 17, 2024 2:22pm Postmenopausal February 28, 2024 10:08am Osteoporosis February 28, 2024 10:08am Dry eye syndrome March 30, 2024 7 :52am MDD (major depressive disord er), recurrent severe, without psychosis March 30, 2024 7:52am Nausea March 30, 2024 7 :52am Anxiety March 30, 2024 7 :52am Congenital ureteropelvic junction obstru ction March 30, 2024 7:52am Gastroparesis March 30, 2024 7 :52am Vulvovaginal discomfort March 30 7:52am Vulvovaginal candidiasis March 30 7:52am UTI (urinary tract infection) April 012023 9:07am Chief Complaint osteoporosis Review DEXA Scan/VFA/TBS , PROLIA, NO PA Needed Stomach, headache nausea 3 month f/u Reason for Visit Postmenopausal Osteoporosis Gastroparesis Chief Complaint Admit Date Sick to stomach, baez when urinating Oc tob 2023 8:41am ER Follow Up March 30, 2024 7 :52am Possible Kidney Infection April 21, 2024 9:07am Dysuria Frequent urinary tract infection s April 21, 2024 10:14am 6 mo f/u May 18, 2024 10:35am [facility] 11[facility] Urinary tract infection & URI June 122024 9:52am Reason for Visit Admit Date Dry eye syndrome March 30, 2024 7 :52am MDD (major depressive disord er), recurrent severe, without psychosis March 30, 2024 7:52am Nausea March 30, 2024 7 :52am Anxiety March 30, 2024 7 :52am Congenital ureteropelvic junction obstru ction March 30, 2024 7:52am Gastroparesis March 30, 2024 7 :52am Vulvovaginal discomfort March 30 7:52am Vulvovaginal candidiasis March 30 7:52am UTI (urinary tract infection) April 012023 9:07am MDD (major depressive disord er), recurrent severe, without psychosis May 18, 2024 10:35am Anxiety May 18, 2024 10:35am Congenital ureteropelvic junction obstru ction May 18, 2024 10:35am Low back pain May 18, 2024 10:35am Recurrent UTI (urinary tract infection) May 18, 2024 10:35am Chief Complaint Admit Date Sick to stomach, baez when urinating Oc tober 2023 8:41am ER Follow Up March 30, 2024 7 :52am Possible Kidney Infection April 21, 2024 9:07am Dysuria Frequent urinary tract infection s April 21, 2024 10:14am 6 mo f/u May 18, 2024 10:35am Increased frequency of urination Decembe r 2023 11:10am Urinary tract infection & URI June 122024 9:52am Burning with urination June 12 10:58am Reason for Visit Admit Date Dry eye syndrome March 30, 2024 7 :52am MDD (major depressive disord er), recurrent severe, without psychosis March 30, 2024 7:52am Nausea March 30, 2024 7 :52am Anxiety March 30, 2024 7 :52am Congenital ureteropelvic junction obstru ction March 30, 2024 7:52am Gastroparesis March 30, 2024 7 :52am Vulvovaginal discomfort March 30 7:52am Vulvovaginal candidiasis March 30 7:52am UTI (urinary tract infection) April 012023 9:07am MDD (major depressive disord er), recurrent severe, without psychosis May 18, 2024 10:35am Anxiety May 18, 2024 10:35am Congenital ureteropelvic junction obstru ction May 18, 2024 10:35am Low back pain May 18, 2024 10:35am Recurrent UTI (urinary tract infection) May 18, 2024 10:35am Congenital ureteropelvic junction obstru ction June 12, 2024 9:52am Recurrent UTI June 12, 2024 9 :52am Right inguinal pain June 12, 2024 9 :52am Viral URI June 12, 2024 9 :52am Chief Complaint Admit Date 6 mo f/u May 18, 2024 10:35am Increased frequency of urination Decembe r 2023 11:10am Urinary tract infection & URI June 122024 9:52am Burning with urination June 12 10:58am frequent UTIs, pw sent July 03 10:25am recurrent UTI July 12, 2024 12:53pm recurrent UTI July 12, 2024 1:14pm Reason for Visit Admit Date MDD (major depressive disord er), recurrent severe, without psychosis May 18, 2024 10:35am Low back pain May 18, 2024 10:35am Recurrent UTI (urinary tract infection) May 18, 2024 10:35am Recurrent UTI June 12, 2024 9 :52am Right inguinal pain June 12, 2024 9 :52am Viral URI June 12, 2024 9 :52am Recurrent UTI July 03, 2024 1 0:25am Chief Complaint Admit Date 6 mo f/u May 18, 2024 10:35am Increased frequency of urination Decembe r 2023 11:10am Urinary tract infection & URI June 122024 9:52am Burning with urination June 12 10:58am frequent UTIs, pw sent July 03 10:25am recurrent UTI July 12, 2024 12:53pm recurrent UTI July 12, 2024 1:14pm Cysto, bladder irrigation f/u July 11:17am Chief Complaint Admit Date 6 mo f/u May 18, 2024 10:35am Increased [facility] 11:10am Urinary tract infection & URI June 122024 9:52am Burning with urination June 12 10:58am frequent UTIs, pw sent July 03 10:25am recurrent UTI July 12, 2024 12:53pm recurrent UTI July 12, 2024 1:14pm Cysto, bladder irrigation f/u July 11:17am annual screening due August 02, 2024 2:0 3pm Reason for Visit Admit Date MDD (major depressive disord er), recurrent severe, without psychosis May 18, 2024 10:35am Low back pain May 18, 2024 10:35am Recurrent UTI (urinary tract infection) May 18, 2024 10:35am Recurrent UTI June 12, 2024 9 :52am Right inguinal pain June 12, 2024 9 :52am Viral URI June 12, 2024 9 :52am Recurrent UTI July 03, 2024 1 0:25am Recurrent UTI July 31, 2024 11:1 7am Chief Complaint Admit Date 6 mo f/u May 18, 2024 10:35am Increased frequency of urination Decembe r 2023 11:10am Urinary tract infection & URI June 122024 9:52am Burning with urination June 12 10:58am frequent UTIs, pw sent July 03 10:25am recurrent UTI July 12, 2024 12:53pm recurrent UTI July 12, 2024 1:14pm Cysto, bladder irrigation f/u July 11:17am annual screening due August 02, 2024 2:0 3pm 3 month follow up August 09, 2024 2:0 8pm Chief Complaint Admit Date Urinary tract infection & URI June 122024 9:52am Burning with urination June 12 10:58am frequent UTIs, pw sent July 03 10:25am recurrent UTI July 12, 2024 12:53pm recurrent UTI July 12, 2024 1:14pm Cysto, bladder irrigation f/u July 11:17am annual screening due August 02, 2024 2:0 3pm 3 month follow up August 09, 2024 2:0 8pm Prolia and review CMP, D PTH August 31, 2024 1:43pm Reason for Visit Admit Date Recurrent UTI June 12, 2024 9 :52am Right inguinal pain June 12, 2024 9 :52am Viral URI June 12, 2024 9 :52am Recurrent UTI July 03, 2024 1 0:25am Recurrent UTI July 31, 2024 11:1 7am MDD (major depressive disord er), recurrent severe, without psychosis August 09, 2024 2:08pm Acute right hip pain August 09, 2024 2: 08pm Anxiety August 09, 2024 2:0 8pm Dysuria August 09, 2024 2:0 8pm Right inguinal pain August 09, 2024 2:0 8pm Osteoporosis August 31, 2024 1:43 pm Postmenopausal August 31, 2024 1:43 pm Chief Complaint Admit Date Cysto, bladder irrigation f/u July 11:17am annual screening due August 02, 2024 2:0 3pm 3 month follow up August 09, 2024 2:0 8pm Prolia and review CMP, D PTH August 31, 2024 1:43pm Possible Kidney Infection October 24, 2024 10:18am Reason for Visit Admit Date Recurrent UTI July 31, 2024 11:1 7am MDD (major depressive disord er), recurrent severe, without psychosis August 09, 2024 2:08pm Acute right hip pain August 09, 2024 2: 08pm Anxiety August 09, 2024 2:0 8pm Dysuria August 09, 2024 2:0 8pm Right inguinal pain August 09, 2024 2:0 8pm Osteoporosis August 31, 2024 1:43 pm Postmenopausal August 31, 2024 1:43 pm Urinary tract infection October 24, 2024 1 0:18am Chief Complaint Admit Date Cysto, bladder irrigation f/u July 11:17am annual screening due August 02, 2024 2:0 3pm 3 month follow up August 09, 2024 2:0 8pm Prolia and review CMP, D PTH August 31, 2024 1:43pm Possible Kidney Infection October 24, 2024 10:18am Dysuria October 24, 2024 11:46 am Chief Complaint Admit Date Prolia and review CMP, D PTH August 31, 2024 1:43pm Possible Kidney Infection October 24, 2024 10:18am Dysuria October 24, 2024 11:46 am 3 mo f/u November 09, 2024 2:09 pm Reason for Visit Admit Date Osteoporosis August 31, 2024 1:43 pm Postmenopausal August 31, 2024 1:43 pm Urinary tract infection October 24, 2024 1 0:18am Additional Source Comments INFORMATION SOURCE (unrecogn ized section and content) DATE CREATED AUTHOR 08/04/2020 [facility] DATE CREATED AUTHOR AUTHOR'S ORGANIZ ATION 08/21/2023 [facility] DATE CREATED AUTHOR AUTHOR'S ORGANIZ ATION 08/25/2023 [facility] DATE CREATED AUTHOR AUTHOR'S ORGANIZ ATION 01/18/2025 [facility] Teams (unrecognized sec tion and content) Team Status: Active Member Role Status Dates Myrna K Alvarenga , DO Primary Care Provider Active Team Status: Inactive Member Role Status Dates Myrna Alvarenga , DO Primary Care Provider, Attending Estiven foster Active Team Status: Inactive Member Role Status Dates Myrna Barrs , DO Primary Care Provider Active Leonidas Sanchez , DO Attending Provider Active Team Status: Inactive Member Role Status Dates Myrna Barrs , DO Primary Care Provider Active Andra S Adrian , DO Attending Provider Active Team Status: Inactive Member Role Status Dates Myrna Alvarenga , DO Primary Care Provider Active CHIKIS Monique Attending Provider Active Team Status: Inactive Member Role Status Dates Myrnacatherine Barrs , DO Primary Care Provider Active CHIKIS [...] , DO Primary Care Provider Active CHIKIS Reyze Attending Provider Active Team Status: Inactive Member [...] , DO Primary Care Provider Active Andra Kelvin Adrian , DO Attending Provider Active Team [...] Provider Active CHIKIS Velasco Attending Provider Active Pet Care Associate Relationship Specialty Start Date End Date Taty Noble CNP [address] [address] Referring Family Medicine 06/10/23 Pet Care Associate Relationship Specialty Start Date End Date Taty Noble CNP [address] [address] Referring Family Medicine 06/10/23 Pet Care Associate Relationship Specialty Start Date End Date Taty Noble EMILY [address] [place] [address] Referring Family Medicine 06/10/23 Pet Care Associate Relationship Specialty Start Date End Date Taty Noble EMILY [address] [place] [address] Referring Family Medicine 06/10/23 Pet Care Associate Relationship Specialty Start Date End Date ZahraaindraTaty canoEMILY [address] [facility] [address] [place] [address] Referring Family Medicine 06/10/23 Pet Care Associate Relationship Specialty Start Date End Date Zahraanima TatyEMILY [address] [place] [address] Referring Family Medicine 06/10/23 Pet Care Associate Relationship Specialty Start Date End Date Padmajadilan TatyEMILY [address] [place] [address] Referring Family Medicine 06/10/23 Team Status: Inactive [...] Inactive Member Role Status Dates Nicole A Jose , DO Primary Care Provider Active Start: February 28, 2024 End: February 28, 2024 CHIKIS Conner Attending Provider Active Sta rt: February 28, 2024 End: February 28, 2024 Team Status: Inactive Member Role Status Dates Nicole A Ildefonsoga , DO Primary Care Provider Active Start: March 27, 2024 End: March 27, 2024 Hugh Julian MD Emergency Provider Active Star t: March 27, 2024 End: March 27, 2024 Team Status: Inactive Member Role Status Dates Nicole A Barga , DO Primary Care Prov ider, Attending Provider Active Start: March 30, 2024 End: March 30, 2024 Team Status: Inactive Member Role Status Dates Nicole A Barga , DO Primary Care Provider Active Start: April 21, 2024 End: April 21, 2024 CHIKIS Velasco Attending Provider Active Start: April 21, 2024 End: April 21, 2024 Team Status: Inactive Member Role Status Dates CHIKIS Velasco Attending Provider Active Start: April 21, 2024 End: April 21, 2024 Nicole A Barga , DO Primary Care Provider Active Start: April 21, 2024 End: April 21, 2024 Team Status: Inactive Member Role Status Dates Nicole A Barga , DO Primary Care Prov ider, Attending Provider Active Start: May 18, 2024 End: May 18, 2024 Team Status: Inactive Member Role Status Dates Nicole A Barga , DO Primary Care Prov ider, Attending Provider Active Start: June 12, 2024 End: June 12, 2024 Team Status: Active Member Role Status Dates Taty Noble CNP Gastroenterology Active Lion Hurtado MD Urology Active CHIKIS Conner Family Provider Active Nicole A Ildefonsoga , DO Primary Care Provider Active Team Status: Inactive Member Role Status Dates Nicole A Barga , DO Primary Care Provider Active Start: July 03, 2024 End: July 03, 2024 Lion Hurtado MD Attending Provider Active St art: July 03, 2024 End: July 03, 2024 Team Status: Inactive Member Role Status Dates Nicole A Jose , DO Primary Care Provider Active Start: July 12, 2024 End: July 12, 2024 Lion Hurtado MD Attending Provider Active St art: July 12, 2024 End: July 12, 2024 Team Status: Active Member Role Status Dates Nicole A Jose , DO Primary Care Provider Active Start: July 12, 2024 Lion Hurtado MD Attending Provider, Other Provider Active Start: July 12, 2024 Team Status: Inactive Member Role Status Dates Nicole A Barga , DO Primary Care Provider Active Start: July 25, 2024 End: July 25, 2024 Lion Hurtado MD Attending Provider Active St art: July 25, 2024 End: July 25, 2024 CHIKIS Conner Family Provider Active Start: July 25, 2024 End: July 25, 2024 Team Status: Inactive Member Role Status Dates Nicole A Barga , DO Primary Care Provider Active Start: May 18, 2024 End: May 18, 2024 Nicole A Barga , DO Attending Provider Active Start: May 18, 2024 End: May 18, 2024 Team Status: Inactive Member Role Status Dates Nicole A Barga , DO Primary Care Provider Active Start: June 12, 2024 End: June 12, 2024 Nicole A Ildefonsoga , DO Attending Provider Active Start: June 12, 2024 End: June 12, 2024 Team Status: Active Member Role Status Dates Nicole A Jose , DO Primary Care Provider Active Start: July 12, 2024 Lion Hurtado MD Attending Provider Active St art: July 12, 2024 Lion Hurtado MD Other Provider Active Start: July 12, 2024 Team Status: Inactive Member Role Status Dates Nicole A Jose , DO Primary Care Provider Active Start: July 31, 2024 End: July 31, 2024 Lion Hurtado MD Attending Provider Active St art: July 31, 2024 End: July 31, 2024 Team Status: Inactive Member Role Status Dates Nicole A Jose , DO Primary Care Provider Active Start: August 02, 2024 End: August 02, 2024 Nicole A Jose , DO Attending Provider Active Start: August 02, 2024 End: August 02, 2024 Team Status: Inactive Member Role Status Dates Nicole A Barga , DO Primary Care Provider Active Start: August 09, 2024 End: August 09, 2024 Nicole A Barga , DO Attending Provider Active Start: August 09, 2024 End: August 09, 2024 Team Status: Inactive Member Role Status Dates Nicole A Barga , DO Primary Care Provider Active Start: August 31, 2024 End: August 31, 2024 CHIKIS Conner Attending Provider Active Sta rt: August 31, 2024 End: August 31, 2024 Team Status: Inactive Member Role Status Dates Nicole A Barga , DO Primary Care Provider Active Start: October 24, 2024 End: October 24, 2024 NAILA Tucker Attending Provider Active Start: October 24, 2024 End: October 24, 2024 Team Status: Inactive Member Role Status Dates Mikal Wilcox , PAC Attending Provider Active Start: October 24, 2024 End: October 24, 2024 Nicole A Barga , DO Primary Care Provider Active Start: October 24, 2024 End: October 24, 2024 Team Status: Inactive Member Role Status Dates Nicole A Barga , DO Primary Care Provider Active Start: November 09, 2024 End: November 09, 2024 Nicole A Barga , DO Attending Provider Active Start: November 09, 2024 End: November 09, 2024 Goals (unrecognized section and content) Goals [...] or prosecute any alcohol or drug abuse patient.[facility] the event this information is protected by the Federal Confidentiality of Alcohol and Drug Abuse Patient Records regulations: The Federal rules restrict any use of the information to criminally investigate or prosecute any alcohol or drug abuse patient.[facility] the event this information is protected by the Federal Confidentiality of Alcohol and Drug Abuse Patient Records regulations: The Federal rules restrict any use of the information to criminally investigate or prosecute any alcohol or drug abuse patient.[facility] the event this information is protected by the Federal Confidentiality of Alcohol and Drug Abuse Patient Records regulations: The Federal rules restrict any use of the information to criminally investigate or prosecute any alcohol or drug abuse patient.[facility] the event this information is protected by the Federal Confidentiality of Alcohol and Drug Abuse Patient Records regulations: The Federal rules restrict any use of the information to criminally investigate or prosecute any alcohol or drug abuse patient.[facility] the event this information is protected by the Federal Confidentiality of Alcohol and Drug Abuse Patient Records regulations: The Federal rules restrict any use of the information to criminally investigate or prosecute any alcohol or drug abuse patient.[facility] Center[facility] the event this information is protected by the Federal Confidentiality of Alcohol and Drug Abuse Patient Records regulations: The Federal rules restrict any use of the information to criminally investigate or prosecute any alcohol or drug abuse patient.[facility] Center[facility] the event this information is protected by the Federal Confidentiality of Alcohol and Drug Abuse Patient Records regulations: The Federal rules restrict any use of the information to criminally investigate or prosecute any alcohol or drug abuse patient.[facility] Reason for Visit (unrecogniz ed section and [...] BE BASED ON THE PRIMARY CLINICAL RECORDS. [employer] [facility]. provides no warranty or guarantee of the accuracy or completeness of information in this document.
--- NOTE | 2025-01-22 15:31 | ECG_ITS ---
[facility] Test Date: 2025-01-22 Pat Name: SHERRY SEXTON Department: Room: - Gender: Female [employer]: : 1945 Requested By: [id number] Order Number: [id number] Reading MD: CARLITOS LLOYD Measurements Intervals [place] Rate: 70 P: 22 DC: 170 QRS: 11 QRSD: 74 T: 164 QT: 432 QTc: 452 Interpretive Statements 1100 Sinus rhythm 5234 Left ventricular hypertrophy with repolarization abnormality ST T wave changes may be due to ischemia 9150 abnormal ECG Compared to ECG 04/23/2024 11:54:36 Left ventricular hypertrophy now present Electronically Signed On 01-24-2025 15:53:04 EDT by CARLITOS LLOYD
[2025-01-22] MEDS: LORAZEPAM 0.5 MG TABLET PO (15:41)
[2025-01-22 15:47] LABS: Hematocrit 31.9 % (36.0-48.0); Hemoglobin 10.7 g/dL (12.0-16.0); Immature Granulocytes Abs Auto 0.02 10^3/uL (0.00-0.03); Immature Granulocytes Pct Auto 0.4 % (0.0-0.5); Lymphocytes Absolute Auto 1.1 10^3/uL (1.2-3.8); Mean Corpuscular HGB Conc 33.5 g/dL (29.9-35.2); Mean Corpuscular Hemoglobin 28.0 pg (26.7-34.0); Mean Corpuscular Volume 83.5 fL (81.0-99.0); Platelet Count 201 10^3/uL (150-450); Red Blood Count 3.82 10^6/uL (4.20-5.40); White Blood Count 4.7 10^3/uL (4.0-11.0)
--- NOTE | 2025-01-22 15:53 | ED.GENADUL1 ---
HPI HPI - General Adult General Chief complaint: Shortness of Breath/Dyspnea Stated complaint: SOB Time Seen by Provider: 01/22/25 14:54 Source: patient Mode of arrival: walk-in Limitations: no limitations History of Present Illness HPI narrative: Patient is an 79-year-old female presenting to the emergency department for concerns of shortness of breath. Patient states she was diagnosed with pneumonia approximately 5 days ago at an outside ED. She was prescribed azithromycin, which she took the full course of. She states that she initially felt better, however acutely worsened today. She states she feels extremely anxious and cannot catch her breath. She is asking for antianxiety medications repeatedly. She denies any fevers or chills. She has some mild epigastric discomfort, but has a longstanding history of GERD. She denies history of DVT/PE, hemoptysis, lower extremity swelling, history of malignancy, or history of recent surgery/immobilizations. Her only chronic medical conditions are anxiety on an SSRI/benzodiazepine and GERD for which she takes omeprazole. Related Data Home Medications ?Medication ?Instructions ?Recorded ?Confirmed pantoprazole 40 mg tablet,delayed 40 mg PO DAILY 04/16/23 04/23/24 release rosuvastatin 40 mg tablet 40 mg PO DAILY 04/16/23 04/23/24 venlafaxine 37.5 mg 37.5 mg PO BID 04/16/23 04/23/24 capsule,extended release 24 hr alprazolam 0.25 mg tablet 0.25 mg PO BID PRN anxiety 04/23/24 04/23/24 Previous Rx's ?Medication ?Instructions ?Recorded nitrofurantoin 100 mg PO BID 5 days #10 caps 04/16/23 monohydrate/macrocrystals 100 mg capsule (Macrobid) cephalexin 500 mg capsule 500 mg PO TID 7 days #21 caps 04/23/24 Allergies Allergy/AdvReac Type Severity Reaction Status Date / Time bee venom protein (honey bee) Allergy Swelling Verified 01/22/25 14:33 of Lip/Tongue/Throat moxifloxacin (From Avelox) Allergy Swelling Verified 01/22/25 14:33 of Lip/Tongue/Throat acetaminophen (From Percocet) AdvReac Headache Verified 01/22/25 14:33 albuterol AdvReac Headache Verified 01/22/25 14:33 calcium AdvReac Vomiting Verified 01/22/25 14:33 doxycycline AdvReac Unknown Verified 01/22/25 14:33 fluconazole (From Diflucan) AdvReac Headache Verified 01/22/25 14:33 hydrocodone (From Vicodin) AdvReac Vomiting Verified 01/22/25 14:33 Iodinated Contrast Media AdvReac burining Verified 01/22/25 14:33 skin oxycodone (From Percocet) AdvReac Headache Verified 01/22/25 14:33 Penicillins AdvReac Hives Verified 01/22/25 14:33 Opioid HPI Opioid Management Most Recent Opioid Data: Last Pain Scale 4 04/23/24, 12:00 Review of Systems ROS Status of ROS 10 or more systems reviewed and unremarkable except as noted in history and below PFSH PFSH Social History Little interest or pleasure in doing things: not at all Feeling down, depressed, or hopeless: not at all Exam Narrative Exam Narrative: CONSTITUTIONAL: Patient is awake, alert, and nontoxic appearing. She is hyperventilating and appears extremely anxious. SKIN: Was warm and dry. EYES: No conjunctival pallor. No scleral icterus EARS, NOSE, THROAT: Moist mucosa. No JVD. RESPIRATORY: Clear to auscultation bilaterally, no wheezes, crackles, or stridor, no use of accessory muscles CARDIOVASCULAR: Normal rate and regular rhythm. There is no S3, S4, murmur, rub. Radial pulses are 2+ and symmetrical. GASTROINTESTINAL: Abdomen was soft, non-tender, and non-distended. There is no guarding or rebound tenderness MUSCULOSKELETAL: There was no lower extremity edema, erythema, or tenderness. NEUROLOGIC: Patient is awake and alert. Equal strength in all extremities. Facies were symmetrical. Constitutional Vital Signs, click to edit/add: Last Vital Signs Temp 98 F 01/22/25 14:40 Pulse 70 01/22/25 14:37 Resp 20 01/22/25 14:37 BP 97/56 01/22/25 16:16 Pulse Ox 95 01/22/25 16:15 O2 Del Method Room Air 01/22/25 14:30 Course Vital Signs Vital signs: Vital Signs Pulse Rate 72 01/22/25 14:30 Respiratory Rate 20 01/22/25 14:30 Blood Pressure 158/62 H 01/22/25 14:30 Pulse Oximetry 98 01/22/25 14:30 Oxygen Delivery Method Room Air 01/22/25 14:30 Temperature 98 F 01/22/25 14:40 Pulse Rate 70 01/22/25 14:37 Respiratory Rate 20 01/22/25 14:37 Blood Pressure 97/56 01/22/25 16:16 Pulse Oximetry 95 01/22/25 16:15 Oxygen Delivery Method Room Air 01/22/25 14:30 Medical Decision Making MDM Narrative Medical decision making narrative: Patient is an 79-year-old female presenting to the emergency department for shortness of breath beginning earlier today. She states she was recently diagnosed with pneumonia 5 days ago, initially felt better, but then worsened again today. Her vital signs are within normal limits. She is afebrile and hemodynamically stable. She is saturating 99% on room air with clear breath sounds bilaterally. She is hyperventilating and appears extremely anxious. My clinical impression is that the patient is having acute anxiety attack, as she is repeatedly asking for anxiety medications . She does have a longstanding history of depression/anxiety. She has no cardiac risk factors, only chronic medical conditions are GERD and anxiety/depression. Given her age, differential diagnoses also include ACS, worsening pneumonia, CHF, pneumothorax, or other electrolyte/metabolic derangement. I did consider PE, however she has normal vital signs, no evidence of DVT, with a Well's Score of 0 making this etiology of extremely low likelihood. IV was established and cardiac workup was obtained. She was given oral lorazepam for anxiety 12 Lead EKG: Normal sinus rhythm at a rate of 70bpm. Normal axis there are T wave inversions in leads V4 through V6 and leads I,II, and aVL that are chronic. No ST segment elevations. QRS, OR, and QTc interval within normal limits. Unchanged compared to prior EKG from 04/24/2024. Final impression: normal sinus rhythm with chronic T wave inversions. No evidence of acute myocardial ischemia. Chest x-ray independently reviewed/interpreted by myself and reviewed by radiology demonstrated chronic interstitial changes with perihilar airspace opacities similar to prior exam. No acute process. Laboratory studies were unremarkable. No significant electrolyte or metabolic derangement. No evidence of acute kidney injury. No significant anemia, leukocytosis, or thrombocytopenia. No transaminitis or hyperbilirubinemia. Troponin and BNP nonelevated. I do believe the patient is stable for discharge. The patient states she feels significantly improved after oral lorazepam. She is convinced that her episode today was likely due to anxiety. She was instructed to follow-up with her PCP for further care. Return precautions were given including any new or concerning symptoms. Patient understands and agrees to the plan. FINAL IMPRESSION: #Acute dyspnea, resolved #Acute anxiety DISPOSITION: Discharged home CONDITION: Good Medical Records Medical records reviewed: Yes I reviewed the patient's medical records Lab Data Lab results reviewed: Yes I reviewed the patient's lab results Labs: Lab Results 01/22/25 Range/Units 15:32 WBC 4.7 (4.0-11.0) 10^3/uL RBC 3.82 L (4.20-5.40) 10^6/uL Hgb 10.7 L (12.0-16.0) g/dL Hct 31.9 L (36.0-48.0) % MCV 83.5 (81.0-99.0) fL MCH 28.0 (26.7-34.0) pg MCHC 33.5 (29.9-35.2) g/dL RDW 14.6 (11.0-15.0) % Plt Count 201 (150-450) 10^3/uL MPV 8.9 L (9.5-13.5) fL Neut % (Auto) 67.3 (43.0-75.0) % Lymph % (Auto) 24.4 (20.5-60.0) % [place] % (Auto) 7.9 (1.7-12.0) % Eos % (Auto) 0.0 L (0.9-7.0) % Baso % (Auto) 0.0 L (0.2-2.0) % Neut # (Auto) 3.1 (1.4-6.5) 10^3/uL Lymph # (Auto) 1.1 L (1.2-3.8) 10^3/uL [place] # (Auto) 0.4 (0.3-0.8) 10^3/uL Eos # (Auto) 0.0 (0.0-0.7) 10^3/uL Baso # (Auto) 0.0 (0.0-0.1) 10^3/uL Abs Immat Gran (auto) 0.02 (0.00-0.03) 10^3/uL Imm/Tot Granulo (auto) 0.4 (0.0-0.5) % Sodium 137 (136-145) mmol/L Potassium 3.8 (3.5-5.1) mmol/L Chloride 101 (98-107) mmol/L Carbon Dioxide 24.2 (21.0-32.0) mmol/L Anion Gap 15.6 BUN 12.0 (7.0-18.0) mg/dL Creatinine 0.75 (0.55-1.02) mg/dL Est GFR ( Amer) >60 (>=60 mL/min/1.73m^2) Est GFR (Non-Af Amer) >60 (>=60 mL/min/1.73m^2) BUN/Creatinine Ratio 16.0 Glucose 92 (74-106) mg/dL Calcium 8.7 (8.5-10.1) mg/dL Total Bilirubin 1.0 (0.2-1.0) mg/dL AST 24 (15-37) U/L ALT 23 (14-59) U/L Alkaline Phosphatase 75 (46-116) U/L Troponin I High Sens 11.0 (4.0-51.3) pg/mL NT-Pro-B Natriuret Pep 416.0 (<=1800.0) pg/mL Total Protein 6.6 (6.4-8.2) g/dL Albumin 3.4 (3.4-5.0) g/dL Globulin 3.2 g/dL Albumin/Globulin Ratio 1.1 Imaging Data Chest x-ray: Radiologist's impression: ITS Impressions Chest X-Ray 01/22/25 16:27 IMPRESSION: Chronic interstitial changes are noted with perihilar airspace opacities. This is similar to the prior exam. Impression dictated by: Sean Yun M.D. 01/22/2025 4:43 PM Dictation Location: [facility] Electronically authenticated by: [id number] Y Date: 01/22/2025 16:43 ECG Data Attestation: I personally reviewed and interpreted this ECG as follows: Discharge Plan Discharge Chief Complaint: Shortness of Breath/Dyspnea Clinical Impression: Anxiety Patient Disposition: Home, Self-Care Time of Disposition Decision: 16:49 Condition: Good Mode of Transportation: Private Vehicle Prescriptions / Home Meds: No Action alprazolam 0.25 mg tablet 0.25 mg PO BID PRN (Reason: anxiety) cephalexin 500 mg capsule 500 mg PO TID 7 Days Qty: 21 0RF pantoprazole 40 mg tablet,delayed release (DR/EC) 40 mg PO DAILY rosuvastatin 40 mg tablet 40 mg PO DAILY venlafaxine 37.5 mg capsule,extended release 24hr 37.5 mg PO BID nitrofurantoin monohyd/m-cryst [Macrobid] 100 mg capsule 100 mg PO BID 5 Days Qty: 10 0RF Patient Comments: 04/21/24-04/25/24 Rx Instructions: must administer with a meal/food Print Language: Pakistani Instructions: Anxiety (ED) Referrals: Physician,Non-Staff, MD [Primary Care Provider] - 1 week Discharge Date/Time: 01/22/25 17:02
[2025-01-22 16:08] LABS: Alanine Aminotransferase 23 U/L (14-59); Albumin Globulin Ratio 1.1; Albumin Level 3.4 g/dL (3.4-5.0); Alkaline Phosphatase 75 U/L (46-116); Anion Gap 15.6; Aspartate Amino Transferase 24 U/L (15-37); Blood Urea Nitrogen 12.0 mg/dL (7.0-18.0); Calcium 8.7 mg/dL (8.5-10.1); Carbon Dioxide 24.2 mmol/L (21.0-32.0); Chloride 101 mmol/L (98-107); Estimated GFR (African America >60 (>=60 mL/min/1.73m^2); Estimated GFR (Non-African Ame >60 (>=60 mL/min/1.73m^2); Globulin 3.2 g/dL; Glucose 92 mg/dL (74-106); Potassium 3.8 mmol/L (3.5-5.1); Sodium 137 mmol/L (136-145); Total Protein 6.6 g/dL (6.4-8.2)
[2025-01-22 16:11] LABS: NT Pro B Type Natriuretic Pept 416.0 pg/mL (<=1800.0)
--- NOTE | 2025-01-22 16:27 | XR_ITS ---
The [address] [address] Patient Name: SHERRY SEXTON MRN: [id number] date: 1945 Sex: F Assigned Patient Location: ER Current Patient Location: ER Accession/Order Number: [id number] Exam Date: 01/22/2025 16:20 Report Date: 01/22/2025 16:43 At the request of: PEDRO HEREDIA DO Procedure: XR chest 2V XR chest 2V 01/22/2025 4:27 PM SIGNS AND SYMPTOMS: ^SOB PROTOCOL: Frontal and lateral radiographs of the chest COMPARISON: 04/23/2024 FINDINGS: The trachea is midline. The heart and mediastinal structures are within normal limits. Chronic interstitial changes are noted with perihilar airspace opacities. This is similar to the prior exam. Degenerative changes are present in the thoracic spine. The bony thorax is intact. XR/XR chest 2V IMPRESSION: Chronic interstitial changes are noted with perihilar airspace opacities. This is similar to the prior exam. Impression dictated by: Sean Yun M.D. 01/22/2025 4:43 PM Dictation Location: [employer] Electronically authenticated by: [id number] Y Date: 01/22/2025 16:43
== END 2025-01-22 17:02 | disposition home or self-care (01) ==
PROVIDERS: Emergency Provider Student in an Organized Health Care Education/Training Program
DX: F41.9 Anxiety disorder, unspecified (principal); K21.9 Gastro-esophageal reflux disease without esophagitis; Z79.899 Other long term (current) drug therapy; Z87.01 Personal history of pneumonia (recurrent); F32.A Depression, unspecified; R06.02 Shortness of breath
CPT/HCPCS: 36415; 71046; 80053; 83880; 84484; 85025; 93005; 99285